=== PATIENT | female | born 1950 | race Caucasian/White ===

== ENCOUNTER 2017-06-30 10:27 | Outpatient (RCR) | payer MEDICARE, OTHER, SELFPAY ==
[2017-06-30 11:38] LABS: International Normalized Ratio 2.9; Prothrombin Time (Protime)PT. 29.2 SECONDS (11.7-14.9)
== END 2017-06-30 10:30 | disposition home or self-care (01) ==
LOC: LAB 10:27
PROVIDERS: Family Provider Family Medicine; PCP Family Medicine; Visit Provider Family Medicine
DX: D68.2 Hereditary deficiency of other clotting factors (principal); E78.5 Hyperlipidemia, unspecified; Z79.899 Other long term (current) drug therapy
CPT/HCPCS: 36415; 85610

== ENCOUNTER → 2017-07-18 11:44 | Outpatient (CLI) | payer MEDICARE, OTHER, SELFPAY ==
--- NOTE | 2017-07-18 11:48 | HPBI_ITS ---
MAMMOGRAPHY - BILATERAL SCREENING REASON FOR EXAM: Female, 67 years old. Routine annual screening examination. PERTINENT HISTORY: Aunt with breast cancer. History of prior workup for right breast nodule. TECHNIQUE: Digital bilateral breast monica (3D mammographic acquisition) in the CC and MLO projections. 2-D mediolateral oblique (MLO) and craniocaudad (CC) views of both breasts were obtained. CAD: Full Field Digital Mammography with Computer Added Detection was performed. COMPARISON: Comparison is made with prior study dated July 04, 2016 and July 03, 2015. FINDINGS: Breast Composition: There are scattered areas of fibroglandular density. There are no dominant masses or suspicious calcifications. No other significant abnormalities are identified. There has been no significant change since the prior study. HPBI/SCREENING MAMM (CAD), BILAT IMPRESSION: Stable bilateral screening mammogram. Yearly follow-up mammogram recommended. (A) ASSESSMENT CATEGORY: BIRADS Category 1: Negative. A letter regarding these results will be sent to the patient by the facility within 30 days. Approximately 10% of breast cancers are not detected by mammography. A normal mammogram should not delay biopsy of a clinically suspicious abnormality. [id number] Electronically Signed: Efrain Klein, at 13:19 EST , Service support ,
== END ==
PROVIDERS: Family Provider Family Medicine; PCP Family Medicine; Visit Provider Family Medicine
DX: Z12.31 Encounter for screening mammogram for malignant neoplasm of breast (principal)
CPT/HCPCS: 77063; 77067

== ENCOUNTER 2017-08-13 12:36 | Outpatient (RCR) | payer MEDICARE, OTHER, SELFPAY ==
[2017-06-21 08:18] VITALS: BP 124/82; BMI 27.9
[2017-08-13 13:44] LABS: Prothrombin Time (Protime)PT. 31.3 SECONDS (11.7-14.9)
== END 2017-08-13 13:00 | disposition home or self-care (01) ==
LOC: LAB 12:36
PROVIDERS: Family Provider Family Medicine; PCP Family Medicine; Visit Provider Family Medicine
DX: D68.2 Hereditary deficiency of other clotting factors (principal)
CPT/HCPCS: 36415; 85610

== ENCOUNTER 2017-09-22 08:07 | Outpatient (RCR) | payer MEDICARE, OTHER, SELFPAY ==
[2017-09-01 12:23] LABS: Prothrombin Time (Protime)PT. 31.4 SECONDS (11.7-14.9)
[2017-09-22 09:28] LABS: International Normalized Ratio 2.6
== END 2017-09-22 09:00 | disposition home or self-care (01) ==
LOC: LAB 08:07
PROVIDERS: Family Provider Family Medicine; PCP Family Medicine; Visit Provider Family Medicine
DX: D68.2 Hereditary deficiency of other clotting factors (principal)
CPT/HCPCS: 36415; 85610

== ENCOUNTER 2017-11-12 06:18 | Outpatient (RCR) | payer MEDICARE, OTHER, SELFPAY ==
[2017-11-12 08:03] LABS: Absolute Lymphocyte Count 1.11 X10^3/ul (0.83-4.51); Absolute Neutrophil Count 1.7 X10^3/uL (2.0-7.7); Basophil# 0.03 X10^3/uL; Basophil% 0.9 % (0-1); Eosinophil# 0.09 X10^3/uL; Eosinophils% 2.7 % (0-5); Hematocrit 41.6 % (37-47); Hemoglobin 13.8 g/dl (12.0-15.0); Lymphocyte # 1.11 X10^3/ul (4.0); Lymphocyte % 33.2 % (19-41); Mean Corp Hgb Conc 33.2 g/gl (32-36); Mean Corpuscular Hgb 31.9 pg (27.0-32.0); Mean Corpuscular Volume 96.1 fL (81-99); Mean Platelet Vol. 10.1 fl (6.2-12.0); Monocyte# 0.43 X10^3/uL; Monocyte% 12.9 % (0-10); Neutrophil # 1.67 X10^3/uL (2.7-7.7); Platelet Count 221 K/mm3 (150-450); RBC Distribution Width CV 12.9 % (11.6-14.6); RBC Distribution Width SD 44.4 fl (35.1-43.9); Red Blood Count 4.33 M/mm3 (4.2-5.4); White Blood Count 3.3 K/mm3 (4.4-11.0)
[2017-11-12 08:15] LABS: POSITIVE COUNT NO; POSITIVE DIFFERENTIAL NO; POSITIVE MORPHOLOGY NO
[2017-11-12 08:44] LABS: ALB/GLOB Ratio 1.1 RATIO (0.9-2.4); AST(SGOT) 22 U/L (15-37); Alanine Aminotransfer ALT/SGPT 27 U/L (13-56); Albumin, Serum 3.5 g/dL (3.2-5.0); Alkaline Phosphatase 99 U/L (45-117); Anion Gap 6 (5-15); BUN 13 mg/dL (7-18); BUN/Creat Ratio 16.1 RATIO (10-20); Bilirubin, Direct 0.16 mg/dL (0.00-0.30); Calcium,Total 8.1 mg/dL (8.5-10.1); Chloride 108 mmol/L (98-107); Cholesterol 136 mg/dL (200); Creatinine, Serum 0.81 mg/dL (0.55-1.02); EST Glomerular Filtration Rate 75 mL/min (>60); Est Glom Filt Rate - Afr Amer 91 mL/min (>60); Globulin 3.1 g/dL (2.2-4.2); Glucose 79 mg/dL (74-106); High Density Lipoprotein 63 mg/dL; Potassium 3.8 mmol/L (3.5-5.1); Protein, Total 6.6 g/dL (6.4-8.2); Sodium Level 142 mmol/L (136-145); Thyroid Stim Hormone (TSH) 0.61 uIU/mL (0.358-3.74); Triglycerides 107 mg/dL; Very Low Density Lipoprotein 21 mg/dL (5-40)
[2017-11-12 08:45] LABS: International Normalized Ratio 2.8; Prothrombin Time (Protime)PT. 29.8 SECONDS (11.7-14.9)
== END 2017-11-12 07:00 | disposition home or self-care (01) ==
LOC: LAB 06:18
PROVIDERS: Nurse Practitioner Family; Family Provider Family Medicine; PCP Family Medicine; Visit Provider Family Medicine
DX: D68.2 Hereditary deficiency of other clotting factors (principal); E03.9 Hypothyroidism, unspecified; I10 Essential (primary) hypertension; E78.5 Hyperlipidemia, unspecified
CPT/HCPCS: 36415; 80053; 80061; 82248; 84443; 85025; 85610

== ENCOUNTER → 2017-11-21 13:53 | Outpatient (CLI) | payer MEDICARE, OTHER, SELFPAY ==
--- NOTE | 2017-11-21 14:00 | RAD_ITS ---
STUDY: X-RAY - PELVIS AND RIGHT HIP REASON FOR EXAM: Female, 67 years old. Pain TECHNIQUE: Radiological exam, hip, unilateral, with pelvis when performed; 2 or 3 views. COMPARISON: None. FINDINGS: There is a non-specific bowel gas pattern. Normal visualized soft tissue structures. Normal bilateral iliac wings, sacroiliac joints and visualized sacrum. Normal bilateral superior and inferior pubic rami. Normal pubic symphysis. Normal bilateral ischial tuberosities. Normal visualized femoral head. Normal acetabulum. Normal hip joint. RAD/Hip 2-3 Views with Pelvis IMPRESSION: Normal x-ray examination of the pelvis and hip. No fracture. No osteoarthritis Electronically Signed: Watson Sheridan, at 6:34 EDT Tel , Service support ,
== END ==
PROVIDERS: Family Provider Family Medicine; PCP Family Medicine; Visit Provider Family Medicine
DX: R52 Pain, unspecified (principal)
CPT/HCPCS: 73502

== ENCOUNTER 2017-12-22 15:19 | Outpatient (RCR) | payer MEDICARE, OTHER, SELFPAY ==
[2017-12-22 15:52] LABS: International Normalized Ratio 2.5
== END 2017-12-22 16:00 | disposition home or self-care (01) ==
LOC: LAB 15:19
PROVIDERS: Family Provider Family Medicine; PCP Family Medicine; Visit Provider Family Medicine
DX: D68.2 Hereditary deficiency of other clotting factors (principal)
CPT/HCPCS: 36415; 85610

== ENCOUNTER → 2018-02-04 14:14 | Outpatient (CLI) | payer MEDICARE, OTHER, SELFPAY ==
[2018-02-04 15:58] LABS: Absolute Lymphocyte Count 1.81 X10^3/ul (0.83-4.51); Absolute Neutrophil Count 1.9 X10^3/uL (2.0-7.7); Basophil# 0.03 X10^3/uL; Basophil% 0.7 % (0-1); Eosinophil# 0.07 X10^3/uL; Eosinophils% 1.6 % (0-5); Hematocrit 41.2 % (37-47); Hemoglobin 13.6 g/dl (12.0-15.0); Lymphocyte # 1.81 X10^3/ul (4.0); Lymphocyte % 42.2 % (19-41); Mean Corpuscular Hgb 31.8 pg (27.0-32.0); Mean Corpuscular Volume 96.3 fL (81-99); Mean Platelet Vol. 10.5 fl (6.2-12.0); Monocyte# 0.52 X10^3/uL; Monocyte% 12.1 % (0-10); Neutrophil # 1.85 X10^3/uL (2.7-7.7); Neutrophil % 43.2 % (47-70); Platelet Count 213 K/mm3 (150-450); RBC Distribution Width CV 12.8 % (11.6-14.6); RBC Distribution Width SD 43.9 fl (35.1-43.9); Red Blood Count 4.28 M/mm3 (4.2-5.4); White Blood Count 4.3 K/mm3 (4.4-11.0)
[2018-02-04 16:10] LABS: POSITIVE COUNT NO; POSITIVE DIFFERENTIAL NO; POSITIVE MORPHOLOGY NO
[2018-02-04 16:20] LABS: ALB/GLOB Ratio 1.2 RATIO (0.9-2.4); AST(SGOT) 23 U/L (15-37); Alanine Aminotransfer ALT/SGPT 28 U/L (13-56); Albumin, Serum 3.6 g/dL (3.2-5.0); Alkaline Phosphatase 96 U/L (45-117); Anion Gap 10 (5-15); BUN 11 mg/dL (7-18); BUN/Creat Ratio 12.6 RATIO (10-20); Calcium,Total 8.4 mg/dL (8.5-10.1); Chloride 107 mmol/L (98-107); Creatinine, Serum 0.87 mg/dL (0.55-1.02); EST Glomerular Filtration Rate 69 mL/min (>60); Est Glom Filt Rate - Afr Amer 83 mL/min (>60); Globulin 2.9 g/dL (2.2-4.2); Glucose 81 mg/dL (74-106); Potassium 3.9 mmol/L (3.5-5.1); Protein, Total 6.5 g/dL (6.4-8.2); Sodium Level 142 mmol/L (136-145); T4 Free Direct 1.19 ng/dL (0.76-1.46); Thyroid Stim Hormone (TSH) 0.37 uIU/mL (0.358-3.74)
== END ==
PROVIDERS: Family Provider Family Medicine; PCP Family Medicine; Visit Provider Family Medicine
DX: E03.9 Hypothyroidism, unspecified (principal); R53.83 Other fatigue; Z51.81 Encounter for therapeutic drug level monitoring
CPT/HCPCS: 36415; 80053; 84439; 84443; 84480; 85025

== ENCOUNTER → 2018-05-14 15:38 | Outpatient (CLI) | payer MEDICARE, OTHER, SELFPAY ==
[2018-03-13 13:51] VITALS: BMI 27.6
--- NOTE | 2018-05-14 15:50 | RAD_ITS ---
STUDY: X-RAY - UNILATERAL RIBS ( RIGHT ) REASON FOR EXAM: Female, 68 years old. Right rib pain. No known injury. TECHNIQUE: 2 view(s) of the ribs on 4 images. COMPARISON: None. FINDINGS: Normal visualized ribs without a demonstrated fracture or obstructive lesion. The visualized lung is clear and expanded. RAD/Ribs Unil 2V No CXR IMPRESSION: Normal x-ray examination of the right ribs. Electronically Signed: Asif Villagomez MD at 19:13 EST , Service support ,
--- OUTSIDE RECORDS SUMMARY | 2018-06-30 13:28 | XMS RPT_ITS ---
:1950 Author Organization [place] Support Name Relationship Address Phone RYANNE CHAMBERS Unavailable [address] + [place] [address] R Unavailable Unavailable Unavailable August Unavailable [address] + [place] [facility] [address] RYANNE CHAMBERS Unavailable [address] + [place] [address] R Unavailable Unavailable Unavailable August Unavailable [address] + [place] [address] RYANNE CHAMBERS Unavailable [address] + [place] [address] R Unavailable Unavailable Unavailable August Unavailable [address] + [place] [address] RYANNE CHAMBERS Unavailable [address] + [place] [address] R Unavailable Unavailable Unavailable August Unavailable [address] + [place] [address] RYANNE CHAMBERS Unavailable [address] + [place] [address] R Unavailable Unavailable Unavailable August Unavailable . + [place] [address] RYANNE CHAMBERS Unavailable [address] + [place] [address] R Unavailable Unavailable Unavailable August Unavailable . + [place] [address] RYANNE CHAMBERS Unavailable [address] + [place] [address] R Unavailable Unavailable Unavailable August Unavailable Unavailable + [place] [address] RYANNE CHAMBERS Unavailable [address] + [place] [address] R Unavailable Unavailable Unavailable SPRANG, AUGUST Unavailable Unavailable + [place] [address] RYANNE CHAMBERS Unavailable [address] + [place] [address] R Unavailable Unavailable Unavailable SPRANG, AUGUST Unavailable Unavailable + [place] [address] RYANNE CHAMBERS Unavailable [address] + [place] [address] R Unavailable Unavailable Unavailable SPRANG, AUGUST Unavailable . + [place] [address] RYANNE CHAMBERS Unavailable [address] + [place] [address] R Unavailable Unavailable Unavailable SPRANG, AUGUST Unavailable Unavailable + RYANNE CHAMBERS Unavailable [address] + [place] [address] R Unavailable Unavailable Unavailable SPRANG, AUGUST Unavailable Unavailable + RYANNE CHAMBERS Unavailable [address] [phone] [place] [address] R Unavailable Unavailable Unavailable SPRANG, AUGUST Unavailable Unavailable + RYANNE CHAMBERS Unavailable [address] [phone] [place] [address] R Unavailable Unavailable Unavailable SPRANG, IRIS Unavailable Unavailable + RYANNE CHAMBERS Unavailable [address] [phone] [place] [address] R Unavailable Unavailable Unavailable SPRANG, IRIS Unavailable Unavailable + RYANNE CHAMBERS Unavailable [address] [phone] [place] [address] R Unavailable Unavailable Unavailable SPRANG, IRIS Unavailable Unavailable + RYANNE CHAMBERS Unavailable [address] [phone] [place] [address] R Unavailable Unavailable Unavailable SPRANG, IRIS Unavailable Unavailable + RYANNE CHAMBERS Unavailable NA + [place], [place] R Unavailable Unavailable Unavailable August Unavailable NA + [place], [place] Care Team Providers Name Role Phone Malys, Adelina Attending Unavailable Malys, Adelian Referring Unavailable Malys, Adelina Primary Care Unavailable Cornelius Dyer Attending Unavailable Manisha, Cornelius Referring Unavailable Malys, Adelina Primary Care Unavailable Malys, Adelina Attending Unavailable Jacinto Laureano Referring Unavailable Malys, Adelina Primary Care Unavailable Malys, Adelina Attending Unavailable Jacinto Laureano Referring Unavailable Malys, Adelina Primary Care Unavailable MiedElzbieta garcia Attending Unavailable Malys, Adelina Primary Care Unavailable Roof, Washington H Attending Unavailable Roof, Washington H Referring Unavailable Malys, Adelina Primary Care Unavailable Malys, Adelina Attending Unavailable Malys, Adelina Primary Care Unavailable Malys, Adelina Attending Unavailable Malys, Adelina Primary Care Unavailable Malys, Adelina Referring Unavailable Malys, Adelina Attending Unavailable Malys, Adelina Referring Unavailable Malys, Adelina Primary Care Unavailable Miedel, Elzbieta Attending Unavailable Malys, Adelina Primary Care Unavailable Miedel, Elzbieta Attending Unavailable Miedel, Elzbieta Referring Unavailable Malys, Adelina Primary Care Unavailable Malys, Adelina Attending Unavailable Malys, Adelina Referring Unavailable Malys, Adelina Primary Care Unavailable Nolt, Colleen Attending Unavailable Jacinto Laureano Attending Unavailable Malys, Adelina Referring Unavailable Malys, Adelina Attending Unavailable Malys, Adelina Referring Unavailable Malys, Adelina Primary Care Unavailable Malys, Adelina Attending Unavailable Malys, Adelina Primary Care Unavailable Jacinto Laureano Attending Unavailable Malys, Adelina Referring Unavailable Roof, Washington H Attending Unavailable Malys, Adelina Referring Unavailable PROBLEMS PROBLEMS DATE TYPE CONDITION / CODE ATTENDING STATUS SOURCE 05/27/2018 Unknown Z01.818 - Encounter Elzbieta Benedict Active [facility] for other Community preprocedural Hospital examination / Repository Z01.818(ICD-10) 05/14/2018 Unknown 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, 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 / Community R07.81(ICD-10) Hospital Repository 02/26/2018 Unknown E78.5 - Jacinto Laureano Active [facility] Hyperlipidemia, Community unspecified / Hospital E78.5(ICD-10) Repository 02/26/2018 Unknown I10 - Essential Jacinto Laureano Active [facility] (primary) [facility] hypertension / Hospital I10(ICD-10) Repository 02/26/2018 Unknown 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 / Hospital Q23.1(ICD-10) Repository 01/01/2018 Unknown 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 / Hospital D68.2(ICD-10) Repository 11/21/2017 Unknown M25.551 - Pain in MiedElzbieta garcia Active [facility] right hip / [facility] M25.551(ICD-10) Hospital Repository 11/28/2017 Unknown E03.9 - Malys, Adelina Active [facility] Hypothyroidism, [facility] unspecified / Hospital E03.9(ICD-10) Repository 07/03/2017 Unknown I48.0 - Paroxysmal Malys, Adelina Active [facility] atrial fibrillation [facility] / I48.0(ICD-10) Hospital Repository PROCEDURES PROCEDURES No Procedure Records FoundRESULTS RESULTS OPERATIVE REPORT Observed: 06/03/2018 Status: F Source: [place] 3:08 PM [facility] [place] Medical Records Department [address] [place] [address] Operative Report 06/03/18 0715 MR#: [id number] Acct: [id number] Name: SHANE CHAMBERS Rep #: [id number] : 1950 68 From: Cornelius Dyer MD PCP: Adelina Alvarenga DO Status: [facility] Y Location: [facility] Report of Operation Date of Procedure: 06/03/18 Pre-Operative Diagnosis: Right first CMC Osteoarthritis Post-Operative Diagnosis: Right first CMC osteoarthritis Surgery/Procedure Performed:: Right first CMC arthroplasty. Right FCR tendon transfer Description of Surgical Findings:: Stable tendon transfer table assembler: Chapis Martino Type of Anesthesia:: General Anesthesiologist: Jus Heck Special Medications: 2 g of Ancef Specimen's removed: Trapezium Estimated Blood Loss (mL): 5 Fluids Replaced: 1000 mL crystalloid Description of Procedure: Operative indications: 68-year-old f failed conservative measures for first CMC osteoarthritis. X-rays show joint space narrowing, subluxation of the joint and osteophyte formation as well as subchondral sclerosis. We discussed surgical intervention including first CMC arthroplasty with tendon transfer. Risks and benefits discussed included but were not limited to blood loss, DVTs, PEs, neurovascular damage, infection, general risk of anesthesia, hematoma and weakness. Patient demonstrated understanding was able to sign informed consent. Procedure: On the date of the procedure the patient's R hand was marked in the preoperative area. Patient was taken back to the operating room where they were transferred to the table in the supine position. Anesthesia assumed control the C-spine airway and remained in control throughout the remainder of the procedure. All bony prominences were identified and well-padded tourniquet was placed on the R upper extremity. The operative extremity was prepped in a sterile fashion. Surgeon then scrubbed Upon reentering the room, the right upper extremity was draped in a standard orthopedic fashion. Incision was marked out. Timeout was called everyone agreed upon the side, the site, the procedure to be performed, patient identity and antibiotics given. Esmarch bandage was used to exsanguinate the extremity. Tourniquet was placed up to 250 mmHg. Incision was taken down through skin. Blunt dissection was taken through subcutaneous tissues. Superficial nerve was identified and retracted out of the way. Radial artery was identified and retracted out of the way. Once we are able to identify the joint arthrotomy was made and the trapezium was identified. Once the trapezium was identified dorsal and volar aspects were debrided of connective tissue. Saw was then used to make a cruciform cut in an osteotomy was completed with the osteotome. Once this was done a rondure was used to remove the bone fragments and the trapezium in its entirety. Attention was then directed towards the FCR to harvest. FCR was identified in the wrist and FiberWire suture was placed around it passed up into the forearm. We then made a small incision in the form and brought the FiberWire through. Transection of the FCR was done in the forearm. The FCR tendon was then fed down to the wrist and into the joint in the previous incision. Vicryl suture was then used to tag the end of the graft for transfer. Attention was then directed towards the proximal end of the first metacarpal. A bur was used to make a bone tunnel for tendon transfer. Loop suture was then passed through the upper holes and used to pull the graft through the bone tunnel. Once this was done a sling was made and 3-0 Ethibond suture was used to tie the tendon on itself. Once the tendon was appropriately secured anchovy was made with the remainder of the tendon. This was sewn down into the joint using 3-0 Ethibond. Copious amounts of irrigation were used throughout the procedure and prior to closure of the wound. Arthrotomy was closed with 2-0 Vicryl skin was closed with 2-0 Vicryl and 4-0 Monocryl with Steri-Strips. Xeroform dressing was placed. Sterile dressing was placed. Compressive dressing was placed. Tourniquet was let down. Well-padded splint was then placed with the thumb in abduction. Patient was then awakened by anesthesia and transferred to the PACU for recovery. Postoperative plan: Patient will remain in the splint for 2 weeks. 2 weeks we will check the incision and remove any sutures or tails. He will be transferred to a cast and abduction at that time. They will then follow standard postoperative protocol for first CMC arthroplasty with Occupational Therapy. - Complications None - Admit VTE Documentation VTE Present on Admission: No VTE Mechan Device Prophylaxis: SCD's VTE Pharm Prophylaxis ordered?: No Reason prophylaxis not ordered:: Treatment Not Indicated 06/03/18 1508 <Electronically signed by Cornelius Dyer MD> Date Cornelius Dyer MD CC: Adelina Alvarenga DO; Cornelius Dyer MD Signed PROTIME W/INR Collected: 06/03/2018 Status: F Source: [place] 8:13 AM [facility] [place] [facility] TYPE CODE TESTS RESULT OUT OF REFERENCE UNITS RANGE LAB L9200.1001 11.9-14.4 SEC Low PROTIME ISTAT 11.8 Result Comment: Reference Range 11.9 - 14.4 LAB L9200.2000 Normal INR ISTAT 1.00 Result Comment: Critical Value > 3.5 Performed By: #### L9200.0000 #### [facility] Point of Care [address] [place] [address] LIVER PROFILE Collected: 06/01/2018 Status: F Source: [place] 6:09 AM [facility] [place] [facility] TYPE CODE TESTS RESULT OUT OF RANGE REFERENCE UNITS LAB L501.1500 6.4-8.2 g/dL Low T PROT 6.1 LAB L501.1800 3.2-5.0 g/dL Normal ALB 3.4 LAB L501.1950 2.2-4.2 g/dL Normal GLOB 2.7 LAB L501.4100 15-37 U/L Normal AST 19 LAB L501.4305 45-117 U/L Normal ALK P 96 LAB L501.4405 13-56 U/L Normal ALT 25 LAB L501.4600 0.20-1.00 mg/dL Normal T BILI 0.60 LAB L501.4700 0.00-0.30 mg/dL Normal D BILI 0.18 Performed By: #### L500.3400, L500.4100 #### [facility] [address] [place], [place], [address] LIPID PROFILE Collected: 06/01/2018 Status: F Source: [place] 6:09 AM [facility] [place] TYPE CODE TESTS RESULT OUT OF RANGE REFERENCE UNITS LAB L501.4900 200 mg/dL Normal CHOL 135 Result Comment: <200 mg/dL Desirable 200-240 mg/dL Borderline >240 mg/dL High Risk LAB L501.5000 mg/dL Normal TRIG 114 Result Comment: The drugs N-Acetylcysteine and Metamizole may falsely depress this assay. Serum Triglycerides Reference Interval Normal <150 mg/dL Borderline high 150 - 199 mg/dL High 200 - 499 mg/dL Very High > or = 500 mg/dL LAB L501.6400 mg/dL Normal HDL 59 Result Comment: The drugs N-Acetylcysteine and Metamizole may falsely depress this assay. Reference Range HDL <40 mg/dL Low HDL Cholesterol HDL >or= 60 mg/dL High HDL Cholesterol LAB L501.6500 0-130 mg/dL Normal LDL 53 LAB L501.6600 5-40 mg/dL Normal VLDL 23 Performed By: #### L500.3400, L500.4100 #### [facility] [address] [place], [place], [id number] HISTORY AND PHYSICAL Observed: 05/23/2018 Status: F Source: [place] EXAM 12:00 AM [facility] [place] [facility] Medical Records Department [address] [place] [address] History and Physical 05/23/18 0000 MR#: [id number] Acct: [id number] Name: SHANE CHAMBERS Rep #: [id number] : 1950 68 From: David Brown PA-C PCP: Adelina Alvarenga DO Status: PRE [facility] Y Location: [facility] History and Physical DATE OF SURGERY: 06/03/2018 SCHEDULED PROCEDURE: right thumb carpometacarpal arthroplasty HISTORY OF PRESENT ILLNESS: This is a 68-year-old female who has had bilateral hand pain for over 1 year duration. Patient states her right is worse than the left. Patient is right- hand dominant. Pain can reach as high as a 10/10 with activity. On average her pain as a 4/10. Patient states her pain does wake her at night. The pain is at the base of her right thumb and radiates into the forearm. She does complain of some occasional numbness in the left hand that improved with bracing. Patient has tried previous conservative measures consisting of heat, ice, elevation with no relief on the right. Patient denies any trauma or injury. Patient has a medical history pertinent for factor V Leiden, hypertension, clots in the right lower extremity. Patient has been on chronic anticoagulation currently on warfarin. Patient currently denies any chest pain, shortness of breath, fevers chills, recent infections. Patient has obtain surgical clearance from her primary care physician. She also has history of heart catheterization in 2007. She is followed by Dr. Laureano her track inspector. After failing conservative measures and discussing treatment options with Dr. Cornelius Dyer, the patient would like to proceed with a right carpometacarpal thumb arthroplasty. REVIEW OF SYSTEMS: ROS: Const: Reports fatigue, but denies anorexia, anxiety, change in appetite, fever and weight change,hard of hearing, and vision problems. CV: Reports heart murmur, but denies chest pain, irregular heartbeat and peripheral vascular disease. Resp: Denies asthma, cough, pneumonia, sleep apnea, SOB, tuberculosis and wheezing. GI: Reports heartburn, but denies constipation, diarrhea, nausea, bloody stools and vomiting, and difficulty swallowing. : Urinary: denies incontinence. Musculo: Denies leg swelling, trouble walking and weakness and limp. Skin: Denies Raynaud's, history of shingles and tattoo. Neuro: Denies ambulatory dysfunction, dizziness, numbness/tingling and tremor. Psych: Reports sleep pattern disturbance, but denies anxiety, depression, insomnia, mental illness and stress. Jamaal/Lymph: Reports bleeding/bruising tendency, but denies anemia and past transfusion. Reviewed and updated. PAST MEDICAL HISTORY: Advance Care Plan: No Advance Directives Effective Date: 07/05/2016 PMH: Medical Problems: Arthritis, Stroke, Thyroid Disease, Factor 5 Liden Accidents: Tailbone FX Surgical Hx: Hand Surgery - 2002 Colonoscopy - 2004 Endoscopy - 2004 Heart Cath - 2007 Thriod Removed - 2009 Gallbladder Colonoscopy - (2017) Anesthesia Complications: None Assistive Devices: Glasses Reviewed and updated. 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 Personal Habits: Cigarette Use: Never.Alcohol: Denies use.Drug Use: Denies Use.Enjoy Exercising: Exercises 1-3 X/Week. Reviewed, no changes. VITALS: Ht: 58 Wt: 138lb Wt k.597 BMI: 28.8 BP: 114/71 Pulse: 56 Resp: 20 T: 97.7 T: 36.5C ALLERGIES: Naprosyn - upset stomach Contrast Dye Levofloxacin MEDICATIONS: Multivitamins 1 po qday, Omeprazole 20 mg 1 cap PO bid, Atenolol 25 mg 1 tab PO qam and 1/2 tab qhs, Simvastatin 40 mg 1 PO qhs, Levothyroxine Sodium 75mcg 1 tab PO except 1/2 tab on sundays, Tizanidine HCL 4 mg 1 PO qhs, Vitamin D-3 2000 Unit 1 PO weekly, [place] 5-325 mg 1-2 by mouth every 6 hour as needed pain, Warfarin Sodium 3 mg 1 tab PO 4 times A week, Warfarin Sodium 2 mg 1 tab PO 3 times A week PRE-OP EXAM: General appearance:NORMAL Other: Eyes: Conjunctivae and lids: NORMAL Pupils: ERR Ears, Nose, Mouth, and Throat: NORMAL Other: Inspection of lips, teeth and gums: NORMAL Other: Neck: Examination of neck: no masses noted. Respiratory: Assessment of respiratory effort: NORMAL Other: Auscultation of lungs: clear to auscultation no wheezes, rhonchi or rales. Cardiovascular: Auscultation of heart: regular rate and rhythm, positive murmur, no gallops or rubs. Exam of carotid arteries: NORMAL Other: Gastrointestinal: Exam of abdomen: soft, nontender, nondistended bowel sounds present. PHYSICAL EXAMINATION: On exam right hand/wrist is cool to touch without erythema. There is tenderness to palpation at the base of the right thumb at the carpometacarpal joint bilaterally. Swelling appreciated at the first carpal metacarpal joint bilaterally. Patient does have a positive grind test bilaterally. Sensation intact to light touch. Motor intact to AIN, PIN, and ulnar nerve. IMAGING STUDIES: First carpometacarpal osteoarthritis with STT osteoarthritis of the wrist. This is consistent with joint space narrowing, subchondral sclerosis, subchondral cyst formation and subluxation of the joint. IMPRESSION: 1. Severe right thumb carpometacarpal osteoarthritis 2. Severe left thumb carpometacarpal joint osteoarthritis 3. History of heart catheterization 2007 4. Hypertension 5. Factor V Leiden 6. Hyperlipidemia 7. Hypothyroidism 8. History of previous deep vein thrombosis right leg 9. Chronic anticoagulation: Currently on warfarin. PLAN: Dr. Cornelius Dyer did discuss and review with the patient all treatment options including surgical versus nonsurgical options. Patient does wish to proceed with the above-stated procedure. Potential risks, benefits, and complications of the procedure were discussed in detail including but not limited to , infection, nerve and blood vessel damage, persistent pain, numbness, tingling, paresthesias, blood clot, pulmonary embolism, and requirement for possible further surgery. The patient expressed full understanding and has no further questions for the doctor. Patient does agree to proceed with the above-stated procedure and has signed the surgery consent form. We will obtain surgical clearance from patient's primary care physician. We're also getting clearance from patient's track inspector. Patient will stop the Coumadin 5 days prior to surgery and restart after surgery. This is per her primary care physician. This dictation was created using voice recognition software. Phonetic and/or grammatical errors may exist.. ___ I have re-examined the patient. There are no clinical changes since date of exam. ___ See progress notes for changes. ___ Dictated on admission Date: Time: Signature: 05/23/18 0000 <Electronically signed by David Brown PA-C> Date David Brown PA-C Cosigner Signature: Date (if applicable) CC: Adelina Alvarenga DO; David WITT Signed CBC W/DIFF, AUTOMATED Collected: 05/19/2018 Status: F Source: [place] 3:21 PM [facility] [place] TYPE CODE TESTS RESULT OUT OF RANGE REFERENCE UNITS LAB L100.1000 4.4-11.0 K/mm3 Normal WBC 5.9 LAB L100.1200 4.2-5.4 M/mm3 Normal RBC 4.33 LAB L100.1300 12.0-15.0 g/dl Normal HGB 13.8 LAB L100.1400 37-47 % Normal HCT 41.9 LAB L100.1500 81-99 fL Normal MCV 96.8 LAB L100.1600 27.0-32.0 pg Normal MCH 31.9 LAB L100.1700 32-36 g/gl Normal MCHC 32.9 LAB L100.1810 11.6-14.6 % Normal RDW CV 13.4 LAB L100.1820 35.1-43.9 fl High RDW SD 45.8 LAB L100.1900 150-450 K/mm3 Normal PLT 212 LAB L100.2000 6.2-12.0 fl Normal MPV 10.6 LAB L100.2100 47-70 % Normal NEUT% 67.2 LAB L100.2200 19-41 % Normal LY% 22.4 LAB L100.2300 0-10 % Normal MONO% 7.5 LAB L100.2400 0-5 % Normal EO% 1.7 LAB L100.2500 0-1 % Normal BASO% 1.0 LAB L100.2550 0.0-0.9 % Normal IM GRAN % 0.200 Result Comment: IG% - Immature Granulocytes (promyelocytes, myelocytes and metamyelocytes) > 1% indicates that a LEFT SHIFT is Present. LAB L100.2620 2.0-7.7 X10 3/uL Normal Absolute Neut 3.9 LAB L100.2720 0.83-4.51 X10 3/ul Normal Absolute Lymph 1.31 Performed By: #### L100.0100 #### [facility] [address] [facility] [place], [address] RIBS UNIL 2V NO Observed: 05/14/2018 Status: F Source: [place] CXR 3:46 PM [facility] [place] [facility] Imaging Services [address] [place] [address] Ribs Unil 2V No CXR MR#: [id number] Acct: [id number] Name: SHANE CHAMBERS Rep #: [id number] : 1950 F 68 From: Erick Villagomez MD PCP: Adelina Alvarenga DO Status: REG CLI Study: Ribs Unil 2V No CXR Date of Exam: 05/14/18 Exam# [id number] Ordering Dr: Adelina Alvarenga DO STUDY: X-RAY - UNILATERAL RIBS ( RIGHT ) REASON FOR EXAM: Female, 68 years old. Right rib pain. No known injury. TECHNIQUE: 2 view(s) of the ribs on 4 images. COMPARISON: None. FINDINGS: Normal visualized ribs without a demonstrated fracture or obstructive lesion. The visualized lung is clear and expanded. RAD/Ribs Unil 2V No CXR IMPRESSION: Normal x-ray examination of the right ribs. Electronically Signed: Asif Villagomez MD at 19:13 EST , Service support , CC: Adelina Alvarenga DO Pocket Stitcher: Signed CARDIOLOGY VISIT Observed: 02/26/2018 Status: F Source: [place] REPORT 3:32 PM [facility] [place] [facility] [place] [address] OFFICE VISIT Date of Service: 02/26/18 MR#: [id number] Acct: [id number] Name: SHANE CHAMBERS Rep #: [id number] : 1950 Provider: Jacinto Laureano MD Age/Sex: 67/F [place] [facility] [place]: Signed HPI HPI Chief Complaint: Routine f/u Details: SHANE CHAMBERS, is a 67 F who presents to the office today for a cardiovascular outpatient follow-up. Patient has a history of factor V Leiden deficiency discovered after requiring a DVT in 2007 and in again in 2009, hypertension, bicuspid aortic valve, and hyperlipidemia. At last office visit patient expressed some fatigue and underwent a stress test and echocardiogram. Patient's last heart catheterization was in 2007. Pt. denies chest, arm, jaw, or neck discomfort. Her exercise tolerance is stable. Pt. denies symptoms of CHF, palpitations, lightheadedness, dizziness, near syncope, or syncopal episodes. Pt. denies edema or claudication issues. Pt. denies orthopnea, PND, fever, chills, blood in urine, blood in stool, myalgia, or unexplainable fatigue. She states some SOB with extreme exertion. Cardiovascular stress echocardiogram from November 2016 showed an estimated ejection fraction of 65% and was negative for ischemia by both ECG and echo criteria. Echocardiogram from November 2016 showed an estimated ejection fraction of 65%, RVSP of 36 mmHg, bicuspid aortic valve, no aortic stenosis, trivial aortic valve insufficiency, and when compared to previous echocardiogram in October 2015 LV function and bicuspid aortic gradients have remained the same and RVSP has increased from 23-36 mmHg. Apparently the patient's PCP feels her blood pressure was on the low side, and decreased her atenolol. At that time she developed palpitations, and her atenolol was increased back to 25 mg a day. Her palpitations have markedly improved although have not completely resolved. She complains of palpitations mostly when laying down at the end of the day, but is otherwise well tolerated. She continues on her Coumadin therapy. She denies any chest pain, angina, shortness of breath or dyspnea on exertion. Patient states that she is been under an enormous amount of psychosocial stress over the last several months as her mother fell and broke her hip requiring admission into a rehab center. She is now currently back home. She had tried atenolol 50 mg daily in the past, but her heart rate was too slow. She has tried atenolol 25 twice daily but reduce this to once a day as she had bradycardia and fatigue. In our office today her blood pressure is 120/60 with a pulse of 60 and regular. Physical exam is as below. Lipids as of 11/12/17 show an LDL of 52 and an HDL of 63. Intake Vital Signs02/26/18 Height 4 ft 11.5 in 02/26/18 Weight: 135 lb 02/26/18 Body Mass Index (BMI) 26.8 02/26/18 Blood Pressure 120/60 Intake Visit Reasons: PCP REQ, palps (no notes, pt canc appt with pcp) Allergies Iodinated Contrast- Oral and IV Dye [Iodinated Contrast Media - IV Dye] Allergy (Verified 02/26/18 10:33) Hives levofloxacin Adverse Reaction (Verified 02/26/18 10:33) abdominal pain naproxen [From Naprosyn] Adverse Reaction (Verified 02/26/18 10:33) Nausea Medications Levothyroxine [Synthroid] 75 mcg PO DAILY 10/28/13 [History Confirmed 02/23/18] Tizanidine HCl [Zanaflex] 4 mg PO QHS 10/28/13 [History Confirmed 02/23/18] simvastatin 40 mg tablet 40 mg PO QHS #90 tab 06/03/17 [Rx Confirmed 02/23/18] cholecalciferol (vitamin D3) 2,000 unit capsule 2,000 unit PO QDAY cap 06/20/17 [History Confirmed 02/23/18] multivitamin tablet 1 tab PO QDAY 06/20/17 [History Confirmed 02/23/18] amoxicillin 500 mg tablet 500 mg PO .COMPLEX #4 tab 09/24/17 [Rx Confirmed 02/23/18] warfarin 1 mg tablet 1 mg PO QDAY 12/17/17 [History Confirmed 02/23/18] warfarin 3 mg tablet 3 mg PO QDAY 12/17/17 [History Confirmed 02/23/18] omeprazole 20 mg tablet,delayed release 20 mg PO BID tab 12/22/17 [History Confirmed 02/23/18] atenolol 25 mg tablet 25 mg PO .COMPLEX #135 tab 02/26/18 [Rx Confirmed 02/26/18] hydrocodone 5 mg-acetaminophen 325 mg tablet 1 tab PO TID PRN tab 02/26/18 [History Confirmed 02/23/18] PFSH Medical History 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) Hypothyroidism (acquired) (Chronic) Hyperlipidemia (Chronic) Bicuspid aortic valve (Chronic) Chronic back pain (Chronic) History of thyroid cancer (Chronic) GERD (gastroesophageal reflux disease) (Chronic) Hypertension (Chronic) History of TIA (transient ischemic attack) (Chronic) Vertigo (Chronic) Arthritis (Acute) Stroke (Acute) HTN (hypertension) (Chronic) Surgical History History of left heart catheterization (Chronic 11/2007) History of thyroidectomy (Acute) History of cholecystectomy (Chronic) Family History Father , age 65 CAD (coronary artery disease) Arthritis Myocardial infarction CVA (cerebral vascular accident) Mother Arthritis Hypertension Sister Arthritis Aunt Breast cancer Social History Smoking Status: Never smoker alcohol intake: never substance use type: does not use caffeine: Yes Type: carbonated beverages what type of physical activity do you participate in: none seatbelt use: always do you feel safe at home: Yes ROS Const Const: Positive for other (PCP decreased Atenolol for low bp, then pt had tachy+ palps: resumed full); negative for fatigue, weakness, body ache, fever(s), headache(s), chills, frequent falls, night sweats, daytime sleepiness, difficulty sleeping, excessive sweating, weight gain, weight loss, increased appetite, poor appetite or anorexia ENT ENT: Negative for headache(s) Cardio Chest Pain: No Palpitations: Yes (Feels more at night when lying down) feels like its: fast, thumping Edema: None Resp Respiratory: Positive for SOB with activity (Only with moderate exertion like walking or carrying heavy items); negative for SOB at rest, SOB orthopnea\SOB lying down, Cough, Coughing up blood/hemoptysis, chest congestion, pain on inspiration, snoring, stridor, wheezing, crackles, paroxysmal nocturnal dyspnea or other Neuro Neuro: Negative for weakness, headache(s) or frequent falls Endo Endo: Negative for fatigue or excessive sweating Cardiology Exam Const Appearance: cooperative, healthy appearing and no acute distress Nutritional Appearance: well nourished Orientation: alert, oriented x3 and oriented to person Head Head: normal to inspection, atraumatic and normocephalic Nose: external nose normal Face and Sinus: face symmetric Mouth: oral mucosae normal Eyes General: appearance normal, both eyes and all related structures Eyelids: eyelids normal Conjunctivae: conjunctivae normal Pupils: PERRL and normal by confrontation EOM: EOM intact bilaterally Neck Neck: normal visual inspection and full ROM Carotids: normal carotid upstroke Chest Chest inspection: normal inspection of the chest Auscultation: Bilateral: Clear to Auscultation Cardio Palpation: normal PMI Rate: regular rate Rhythm: regular rhythm Heart sounds: S2 normal Murmur: Grade 2/6 and crescendo-decrescendo GI GI: normal to inspection, no hepatosplenomegaly and bowel sounds present Neuro General: alert, oriented x3, awake, CN's II-XI intact bilaterally and moves all extremities Skin Skin: no rashes or lesions noted Extremities Pulses: Normal: Right Femoral Pulse, Left Femoral Pulse, Right Dorsalis Pedis Pulse, Left Dorsalis Pedis Pulse, Right Posterior Tibial Pulse, Left Posterior Tibial Pulse, Right Radial Pulse, Left Radial Pulse Lower Extremity Edema: None: Bilateral Psych Psychological: normal affect Assessment AND Plan 1. Essential hypertension I10 Plan 1. Hypertension: The patient has had episodes of hypotension requiring reduction of her beta-dragan therapy with subsequent increase in palpitations. Patient appears to be in sinus rhythm today. She has tried various permutations of atenolol including 25 mg twice daily, 50 mg once a day, all of which make her bradycardic and tired. I recommend that we continue atenolol 25 mg p.o. daily and add 12.5 mg of atenolol in the evening. She will return in 2 weeks time for a blood pressure check. Should the patient continue have palpitations we may require a 30-day event monitor to get a diagnosis. 2. Bicuspid aortic valve Q23.1 Plan 2. Bicuspid aortic valve: Patient's bicuspid valve is stable by serial echocardiograms. She has had no dizziness or lightheadedness, presyncope or syncope. Continue serial echocardiograms. 3. Hyperlipidemia E78.5 Plan 3. Hyperlipidemia: Her LDL and HDL cholesterol are at goal. Continue Zocor. 4. Factor V Leiden deficiency: The patient requires lifelong anticoagulation. Continue Coumadin therapy. 5. Return office in 6 months. This note was generated using a voice recognition system and there may be incorrect words, spelling or punctuation that were not noted when reviewing the office note prior to saving. Plan Detail Other Medications Changed: To: atenolol 25 mg PO a whole pill in the am and 0.5 tablet (12.5 mg) at bedtime; 135 tabs 3RF Follow Up +6M (Laureano) +2 weeks (BP check) Coding Level of Care Code Off vis,est,level 3 Diagnoses Essential hypertension I10 Hypertension type: essential hypertension Bicuspid aortic valve Q23.1 Hyperlipidemia E78.5 Coding Level of Care Code Off vis,est,level 3 Diagnoses Essential hypertension I10 Hypertension type: essential hypertension Bicuspid aortic valve Q23.1 Hyperlipidemia E78.5 02/26/18 1532 <Electronically signed by Jacinto Laureano MD> Date Jacinto Laureano MD Cosigner Signature: Date (if applicable) CC: Adelina Alvarenga DO CBC W/DIFF, AUTOMATED Collected: 02/04/2018 Status: F Source: [place] 2:17 PM [facility] [place] CODE TESTS RESULT OUT OF RANGE REFERENCE UNITS LAB L100.1000 4.4-11.0 K/mm3 Low WBC 4.3 LAB L100.1200 4.2-5.4 M/mm3 Normal RBC 4.28 LAB L100.1300 12.0-15.0 g/dl Normal HGB 13.6 LAB L100.1400 37-47 % Normal HCT 41.2 LAB L100.1500 81-99 fL Normal MCV 96.3 LAB L100.1600 27.0-32.0 pg Normal MCH 31.8 LAB L100.1700 32-36 g/gl Normal MCHC 33.0 LAB L100.1810 11.6-14.6 % Normal RDW CV 12.8 LAB L100.1820 35.1-43.9 fl Normal RDW SD 43.9 LAB L100.1900 150-450 K/mm3 Normal PLT 213 LAB L100.2000 6.2-12.0 fl Normal MPV 10.5 LAB L100.2100 47-70 % Low NEUT% 43.2 LAB L100.2200 19-41 % High LY% 42.2 LAB L100.2300 0-10 % High MONO% 12.1 LAB L100.2400 0-5 % Normal EO% 1.6 LAB L100.2500 0-1 % Normal BASO% 0.7 LAB L100.2550 0.0-0.9 % Normal IM GRAN % 0.200 Result Comment: IG% - Immature Granulocytes (promyelocytes, myelocytes and metamyelocytes) > 1% indicates that a LEFT SHIFT is Present. LAB L100.2620 2.0-7.7 X10 3/uL Low Absolute Neut 1.9 LAB L100.2720 0.83-4.51 X10 3/ul Normal Absolute Lymph 1.81 Performed By: #### L100.0100 #### [facility] [address] [place], [place], [id number] COMPREHENSIVE METABOLIC Collected: 02/04/2018 Status: F Source: [facility] 2:17 PM [facility] [place] CODE TESTS RESULT OUT OF RANGE REFERENCE UNITS LAB L501.0100 74-106 mg/dL Normal GLU 81 Result Comment: Please note revised GLUCOSE reference range effective 2017. LAB L501.1000 7-18 mg/dL Normal BUN 11 LAB L501.1100 0.55-1.02 mg/dL Normal CREAT,SERUM 0.87 Result Comment: The validity of the calculated GFR AND GFRAA in patients over 70 years has not been determined. Clinical correlation is essential. LAB L501.1110 >60 mL/min Normal EST GFR 69 Result Comment: Non- GFR Calc LAB L501.1115 >60 mL/min Normal EST GFR - AA 83 Result Comment: GFR Calc LAB L501.1300 10-20 RATIO Normal BUN/CRE 12.6 LAB L501.1500 6.4-8.2 g/dL T Normal PROT 6.5 LAB L501.1800 3.2-5.0 g/dL Normal ALB 3.6 LAB L501.1950 2.2-4.2 g/dL Normal GLOB 2.9 LAB L501.2000 0.9-2.4 RATIO Normal A/G 1.2 LAB L501.2200 8.5-10.1 mg/dL Low CA 8.4 LAB L501.4100 15-37 U/L Normal AST 23 LAB L501.4305 45-117 U/L Normal ALK P 96 LAB L501.4405 13-56 U/L Normal ALT 28 LAB L501.4600 0.20-1.00 mg/dL T Normal BILI 0.40 LAB L501.5300 136-145 mmol/L NA Normal 142 LAB L501.5600 3.5-5.1 mmol/L K Normal 3.9 LAB L501.5900 98-107 mmol/L CL Normal 107 LAB L501.6100 21.0-32.0 mmol/L Normal CO2 25.0 LAB L501.6200 5-15 Normal GAP 10 Performed By: #### L500.4050, L501.9520, L506.0400 #### [facility] [address] [place], [address] THYROID STIM HORMONE Collected: 02/04/2018 Status: F Source: [facility] (TSH) 2:17 PM [facility] [place] CODE TESTS RESULT OUT OF RANGE REFERENCE UNITS LAB L501.9520 0.358-3.74 uIU/mL Normal TSH 0.37 Performed By: #### L500.4050, L501.9520, L506.0400 #### [facility] [address] [place], [address] T4 FREE DIRECT Collected: 02/04/2018 Status: F Source: [place] 2:17 PM [facility] [place] TYPE CODE TESTS RESULT OUT OF RANGE REFERENCE UNITS LAB L506.0400 0.76-1.46 ng/dL Normal T4 FREE 1.19 DIRECT Performed By: #### L500.4050, L501.9520, L506.0400 #### [facility] [address] [place], [address] T3 TOTAL - TRIIODOTHYRONINE Collected: 02/04/2018 Status: F Source: [place] 2:17 PM [facility] [place] TYPE CODE TESTS RESULT OUT OF RANGE REFERENCE UNITS LAB L501.9186 0.6-1.81 ng/mL Normal T3 Total 0.90 Performed By: #### L501.9186 #### [facility] [address] [place], [address] PROTHROMBIN TIME W/INR Collected: 12/22/2017 Status: F Source: [place] 3:24 PM [facility] [place] TYPE CODE TESTS RESULT OUT OF RANGE REFERENCE UNITS LAB L300.4150 11.7-14.9 SECONDS High PROTIME 27.0 LAB L300.4200 Normal INR 2.5 Performed By: #### L300.3900 #### [facility] [address] [place], [address] CARDIOLOGY VISIT Observed: 12/22/2017 Status: F Source: [place] REPORT 3:17 PM [facility] [place] [facility] [address] [place] [address] OFFICE VISIT Date of Service: 12/22/17 MR#: [id number] Acct: [id number] Name: SHANE CHAMBERS Sacha Rep #: [id number] : 1950 Provider: Jacinto Laureano MD Age/Sex: 67/F [place] [facility] [place] Status: Signed HPI HPI Chief Complaint: Routine f/u Details: SHANE CHAMBERS, is a 67 F who presents to the office today for a cardiovascular outpatient follow-up. Patient has a history of factor V Leiden deficiency discovered after requiring a DVT in 2007 and in again in 2009, hypertension, bicuspid aortic valve, and hyperlipidemia. At last office visit patient expressed some fatigue and underwent a stress test and echocardiogram. Patient's last heart catheterization was in 2007. Pt. denies chest, arm, jaw, or neck discomfort. Her exercise tolerance is stable. Pt. denies symptoms of CHF, palpitations, lightheadedness, dizziness, near syncope, or syncopal episodes. Pt. denies edema or claudication issues. Pt. denies orthopnea, PND, fever, chills, blood in urine, blood in stool, myalgia, or unexplainable fatigue. She states some SOB with extreme exertion. Pt. states in May left arm achiness, shoulder and center chest pain for three days. This resolved on its own. She denies diaphoresis. nausea, SOB with the pain. She states a headache with this pain. She rated the pain a 8/10 and she described it as sharp. She states having the chest pain before, but not arm and shoulder pain. Cardiovascular stress echocardiogram from November 2016 showed an estimated ejection fraction of 65% and was negative for ischemia by both ECG and echo criteria. Echocardiogram from November 2016 showed an estimated ejection fraction of 65%, RVSP of 36 mmHg, bicuspid aortic valve, no aortic stenosis, trivial aortic valve insufficiency, and when compared to previous echocardiogram in October 2015 LV function and bicuspid aortic gradients have remained the same and RVSP has increased from 23-36 mmHg. Patient recently underwent a sinus procedure, and apparently developed some vertigo in August 2017. At that time she had episodes of hypotension and positional dizziness.. Patient had episode of dizziness around Mother's Day, and has had to hold her ramipril. She takes her blood pressure at home and it ranges between 9100 systolic. She is only taking her ramipril intermittently. She has had no presyncope or syncopal episodes. In our office today her blood pressure is 100/60 with a pulse of 68 and regular. Physical exam is as below. Lipids as of 11/12/17 show an LDL of 52 and an HDL of 63. Intake Vital Signs12/22/17 Height 4 ft 10.5 in 12/22/17 Weight: 135 lb 12/22/17 Body Mass Index (BMI) 27.7 12/22/17 Blood Pressure 100/60 Intake Visit Reasons: 6 M FU Allergies Iodinated Contrast- Oral and IV Dye [Iodinated Contrast Media - IV Dye] Allergy (Verified 12/22/17 13:16) Hives levofloxacin Adverse Reaction (Verified 12/22/17 13:16) abdominal pain naproxen [From Naprosyn] Adverse Reaction (Verified 12/22/17 13:16) Nausea Medications Levothyroxine [Synthroid] 75 mcg PO DAILY 10/28/13 [History Confirmed 12/22/17] Tizanidine HCl [Zanaflex] 4 mg PO QHS 10/28/13 [History Confirmed 12/22/17] atenolol 25 mg tablet 25 mg PO DAILY #90 tab 06/03/17 [Rx Confirmed 12/22/17] simvastatin 40 mg tablet 40 mg PO QHS #90 tab 06/03/17 [Rx Confirmed 12/22/17] hydrocodone 5 mg-acetaminophen 325 mg tablet 1 tab PO TID tab 06/17/17 [History Confirmed 12/22/17] cholecalciferol (vitamin D3) 2,000 unit capsule 2,000 unit PO QDAY cap 06/20/17 [History Confirmed 12/22/17] multivitamin tablet 1 tab PO QDAY 06/20/17 [History Confirmed 12/22/17] amoxicillin 500 mg tablet 500 mg PO .COMPLEX #4 tab 09/24/17 [Rx Confirmed 12/22/17] warfarin 1 mg tablet 1 mg PO QDAY 12/17/17 [History Confirmed 12/22/17] warfarin 3 mg tablet 3 mg PO QDAY 12/17/17 [History Confirmed 12/22/17] omeprazole 20 mg tablet,delayed release 20 mg PO BID tab 12/22/17 [History Confirmed 12/22/17] ramipril 5 mg capsule 5 mg PO .COMPLEX 12/22/17 [History Confirmed 12/22/17] [facility] Medical History 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) Hypothyroidism (acquired) (Chronic) Hyperlipidemia (Chronic) Bicuspid aortic valve (Chronic) Chronic back pain (Chronic) History of thyroid cancer (Chronic) GERD (gastroesophageal reflux disease) (Chronic) Hypertension (Chronic) History of TIA (transient ischemic attack) (Chronic) Vertigo (Chronic) Arthritis (Acute) Stroke (Acute) HTN (hypertension) (Chronic) Surgical History History of left heart catheterization (Chronic 11/2007) History of thyroidectomy (Acute) History of cholecystectomy (Chronic) Family History Father , age 65 CAD (coronary artery disease) Arthritis Myocardial infarction CVA (cerebral vascular accident) Mother Arthritis Hypertension Sister Arthritis Aunt Breast cancer Social History Smoking Status: Never smoker alcohol intake: never substance use type: does not use caffeine: Yes Type: carbonated beverages what type of physical activity do you participate in: none seatbelt use: always do you feel safe at home: Yes ROS Const Const: Negative for fatigue, weakness, body ache, fever(s), headache(s), chills, frequent falls, night sweats, daytime sleepiness, difficulty sleeping, excessive sweating, weight gain, weight loss, increased appetite, poor appetite, anorexia or other Eyes Eyes: Negative for blind spots, loss of peripheral vision, transient loss of vision, blurry vision, change in vision, double vision, floaters, tunnel vision or other ENT ENT: Negative for headache(s), dizziness, hearing loss, tinnitus, Nosebleed/epistaxis, balance problems, post nasal drip, lip swelling, tongue swelling, bleeding gums, hoarseness, neck pain, dry mouth or other Cardio Chest Pain: No Palpitations: No Edema: None Muscle aches with walking: None Resp Respiratory: Negative for SOB with activity, SOB at rest, SOB orthopnea\SOB lying down, Coughing up blood/hemoptysis, chest congestion, pain on inspiration, snoring, stridor, wheezing, crackles, paroxysmal nocturnal dyspnea or other GI GI: Negative nausea, vomiting, heartburn, constipation, belching, bloating, cramping, vomiting blood/hematemesis, bright, red blood in stools, black,tarry stools, loose stools, Difficulty Swallowing or other : Negative for hematuria, frequent nighttime urination/ nocturia, erectile dysfunction or abnormal vaginal bleeding Musc Musc: Negative for balance problems, muscle aches/ myalgia, muscle weakness or joint pain Skin Skin: Negative redness, non-healing lesions, rash, unusual bruising, skin ulcer, wounds, jaundice or other Neuro Neuro: Positive for other (Had some dizziness and poor balance in September, since then ok); negative for weakness, headache(s), frequent falls, blurry vision, double vision, dizziness, lightheadedness, near syncope, syncope, orthostatic symptoms, confusion, memory loss, restless legs, vertigo, seizures or lack of coordination [place] Hematologic/Lymphatic: Negative for easy bleeding, easy bruising, enlarged lymph nodes or other Endo Endo: Negative for fatigue, excessive sweating, cold intolerance, heat intolerance, flushing, increased thirst/drinking, increased hunger, hair loss, hair growth or other Psych Psych: Negative for anxiety, depression, thoughts of harming anyone, thoughts of harming yourself, visual hallucinations, panic attacks or audible hallucinations Allergy Allergy/Immunology: Negative for lip swelling, Negative for tongue swelling, Negative for rash, Negative for throat swelling, Negative for hives Cardiology Exam Const Appearance: cooperative, healthy appearing and no acute distress Nutritional Appearance: well nourished Orientation: alert, oriented x3 and oriented to person Head Head: normal to inspection, atraumatic and normocephalic Nose: external nose normal Face and Sinus: face symmetric Mouth: oral mucosae normal Eyes General: appearance normal, both eyes and all related structures Eyelids: eyelids normal Conjunctivae: conjunctivae normal Pupils: PERRL and normal by confrontation EOM: EOM intact bilaterally Neck Neck: normal visual inspection and full ROM Carotids: normal carotid upstroke Chest Chest inspection: normal inspection of the chest Auscultation: Bilateral: Clear to Auscultation Cardio Palpation: normal PMI Rate: regular rate Rhythm: regular rhythm Heart sounds: S2 normal Murmur: Grade 2/6 and crescendo-decrescendo GI GI: normal to inspection, no hepatosplenomegaly and bowel sounds present Neuro General: alert, oriented x3, awake, CN's II-XI intact bilaterally and moves all extremities Skin Skin: no rashes or lesions noted Extremities Pulses: Normal: Right Femoral Pulse, Left Femoral Pulse, Right Dorsalis Pedis Pulse, Left Dorsalis Pedis Pulse, Right Posterior Tibial Pulse, Left Posterior Tibial Pulse, Right Radial Pulse, Left Radial Pulse Lower Extremity Edema: None: Bilateral Psych Psychological: normal affect Assessment AND Plan 1. Atherosclerotic heart disease of [place] coronary artery without angina pectoris I25.10 Plan 1. Coronary artery disease: No exertional anginal symptoms at this time. No additional testing needed at this time. Recommend that she continue her atenolol. 2. Factor V deficiency D68.2 Plan 2. Factor V Leiden deficiency: Patient will require lifelong anticoagulation therapy given her history of DVTs in the past. 3. Hyperlipidemia E78.5 Plan 3. Hyperlipidemia: Her LDL and HDL cholesterol are at goal. Continue Zocor 4. Bicuspid aortic valve Q23.1 Plan 4. 4. Bicuspid aortic valve: The patient's most recent echocardiogram showed minimal if any aortic stenosis. Given her history of recent sinus surgical procedure and vertigo type symptoms, combined with her hypotension, I recommend discontinuation of ramipril at this time. She will continue atenolol however. Recommend serial echocardiograms on a every other year basis. 5. Return office in 6 month This note was generated using a voice recognition system and there may be incorrect words, spelling or punctuation that were not noted when reviewing the office note prior to saving. Plan Detail Other Medications Discontinued: Follow Up +6M (Georgi) Coding Level of Care Code Off vis,est,level 3 Diagnoses Atherosclerotic heart disease of [place] coronary artery without angina pectoris I25.10 Factor V deficiency D68.2 Hyperlipidemia E78.5 Bicuspid aortic valve Q23.1 Coding Level of Care Code Off vis,est,level 3 Diagnoses Atherosclerotic heart disease of [place] coronary artery without angina pectoris I25.10 Factor V deficiency D68.2 Hyperlipidemia E78.5 Bicuspid aortic valve Q23.1 12/22/17 1517 <Electronically signed by Jacinto Laureano MD> Date Jacinto Laureano MD Cosigner Signature: Date (if applicable) CC: Adelina Alvarenga DO HIP 2-3 VIEWS WITH Observed: 11/21/2017 Status: F Source: [place] 1:55 PM [facility] [place] [facility] Imaging Services [address] [place] [address] Hip 2-3 Views with Pelvis MR#: [id number] Acct: [id number] Name: SHANE CHAMBERS Rep #: [id number] : 1950 F 67 From: Watson Sheridan MD PCP: Adelina Alvarenga DO Status: REG CLI Study: Hip 2-3 Views with Pelvis Date of Exam: 11/21/17 Exam# [id number] Ordering Dr: Elzbieta Benedict MD STUDY: X-RAY - PELVIS AND RIGHT HIP REASON FOR EXAM: Female, 67 years old. Pain TECHNIQUE: Radiological exam, hip, unilateral, with pelvis when performed; 2 or 3 views. COMPARISON: None. FINDINGS: There is a non-specific bowel gas pattern. Normal visualized soft tissue structures. Normal bilateral iliac wings, sacroiliac joints and visualized sacrum. Normal bilateral superior and inferior pubic rami. Normal pubic symphysis. Normal bilateral ischial tuberosities. Normal visualized femoral head. Normal acetabulum. Normal hip joint. RAD/Hip 2-3 Views with Pelvis IMPRESSION: Normal x-ray examination of the pelvis and hip. No fracture. No osteoarthritis Electronically Signed: Watson Sheridan, at 6:34 EDT Tel , Service support , CC: Elzbieta Benedict MD; Adelina Alvarenga DO Pocket Stitcher: Signed CBC W/DIFF, AUTOMATED Collected: 11/12/2017 Status: F Source: [place] 6:27 AM [facility] [place] [facility] Order Comment: CBCD,PT,TSH,CMP FOR DR ALVARENGA LIVER LIPID FOR ROOF TYPE CODE TESTS RESULT OUT OF RANGE REFERENCE UNITS LAB L100.1000 4.4-11.0 K/mm3 Low WBC 3.3 LAB L100.1200 4.2-5.4 M/mm3 Normal RBC 4.33 LAB L100.1300 12.0-15.0 g/dl Normal HGB 13.8 LAB L100.1400 37-47 % Normal HCT 41.6 LAB L100.1500 81-99 fL Normal MCV 96.1 LAB L100.1600 27.0-32.0 pg Normal MCH 31.9 LAB L100.1700 32-36 g/gl Normal MCHC 33.2 LAB L100.1810 11.6-14.6 % Normal RDW CV 12.9 LAB L100.1820 35.1-43.9 fl High RDW SD 44.4 LAB L100.1900 150-450 K/mm3 Normal PLT 221 LAB L100.2000 6.2-12.0 fl Normal MPV 10.1 LAB L100.2100 47-70 % Normal NEUT% 50.0 LAB L100.2200 19-41 % Normal LY% 33.2 LAB L100.2300 0-10 % High MONO% 12.9 LAB L100.2400 0-5 % Normal EO% 2.7 LAB L100.2500 0-1 % Normal BASO% 0.9 LAB L100.2550 0.0-0.9 % Normal IM GRAN % 0.300 Result Comment: IG% - Immature Granulocytes (promyelocytes, myelocytes and metamyelocytes) > 1% indicates that a LEFT SHIFT is Present. LAB L100.2620 2.0-7.7 X10 3/uL Low Absolute Neut 1.7 LAB L100.2720 0.83-4.51 X10 3/ul Normal Absolute Lymph 1.11 Performed By: #### L100.0100 #### [facility] [address] [place], [address] PROTHROMBIN TIME W/INR Collected: 11/12/2017 Status: F Source: [place]I 6:23 AM [facility] [place] [facility] Order Comment: CBCD,PT,TSH,CMP FOR DR ALVARENGA LIVER LIPID FOR ROOF TYPE CODE TESTS RESULT OUT OF RANGE REFERENCE UNITS LAB L300.4150 11.7-14.9 SECONDS High PROTIME 29.8 LAB L300.4200 Normal INR 2.8 Performed By: #### L300.3900 #### [facility] [address] [place], [address] COMPREHENSIVE METABOLIC Collected: 11/12/2017 Status: F Source: WENDI [facility] 6:22 AM [facility] [place] [facility] Order Comment: CBCD,PT,TSH,CMP FOR DR ALVARENGA LIVER LIPID FOR ROOF TYPE CODE TESTS RESULT OUT OF RANGE REFERENCE UNITS LAB L501.0100 74-106 mg/dL Normal GLU 79 Result Comment: Please note revised GLUCOSE reference range effective 2017. LAB L501.1000 7-18 mg/dL Normal BUN 13 LAB L501.1100 0.55-1.02 mg/dL Normal CREAT,SERUM 0.81 Result Comment: The validity of the calculated GFR AND GFRAA in patients over 70 years has not been determined. Clinical correlation is essential. LAB L501.1110 >60 mL/min Normal EST GFR 75 Result Comment: Non- GFR Calc LAB L501.1115 >60 mL/min Normal EST GFR - AA 91 Result Comment: GFR Calc LAB L501.1300 10-20 RATIO Normal BUN/CRE 16.1 LAB L501.1500 6.4-8.2 g/dL T Normal PROT 6.6 LAB L501.1800 3.2-5.0 g/dL Normal ALB 3.5 LAB L501.1950 2.2-4.2 g/dL Normal GLOB 3.1 LAB L501.2000 0.9-2.4 RATIO Normal A/G 1.1 LAB L501.2200 8.5-10.1 mg/dL Low CA 8.1 LAB L501.4100 15-37 U/L Normal AST 22 LAB L501.4305 45-117 U/L Normal ALK P 99 LAB L501.4405 13-56 U/L Normal ALT 27 LAB L501.4600 0.20-1.00 mg/dL T Normal BILI 0.50 LAB L501.5300 136-145 mmol/L NA Normal 142 LAB L501.5600 3.5-5.1 mmol/L K Normal 3.8 LAB L501.5900 98-107 mmol/L High CL 108 LAB L501.6100 21.0-32.0 mmol/L Normal CO2 28.0 LAB L501.6200 5-15 Normal GAP 6 Performed By: #### L500.4050, L500.4100, L501.4700, L501.9520 #### [facility] [address] [place], [place], [address] LIPID PROFILE Collected: 11/12/2017 Status: F Source: [place] 6:22 AM [facility] [place] [facility] Order Comment: CBCD,PT,TSH,CMP FOR DR ALVARENGA LIVER LIPID FOR ROOF TYPE CODE TESTS RESULT OUT OF RANGE REFERENCE UNITS LAB L501.4900 200 mg/dL Normal CHOL 136 Result Comment: <200 mg/dL Desirable 200-240 mg/dL Borderline >240 mg/dL High Risk LAB L501.5000 mg/dL Normal TRIG 107 Result Comment: The drugs N-Acetylcysteine and Metamizole may falsely depress this assay. Serum Triglycerides Reference Interval Normal <150 mg/dL Borderline high 150 - 199 mg/dL High 200 - 499 mg/dL Very High > or = 500 mg/dL LAB L501.6400 mg/dL Normal HDL 63 Result Comment: The drugs N-Acetylcysteine and Metamizole may falsely depress this assay. Reference Range HDL <40 mg/dL Low HDL Cholesterol HDL >or= 60 mg/dL High HDL Cholesterol LAB L501.6500 0-130 mg/dL Normal LDL 52 LAB L501.6600 5-40 mg/dL Normal VLDL 21 Performed By: #### L500.4050, L500.4100, L501.4700, L501.9520 #### [facility] [address] [place], [place], [id number] BILIRUBIN, DIRECT Collected: 11/12/2017 Status: F Source: [place] 6:22 AM [facility] [place] [facility] Order Comment: CBCD,PT,TSH,CMP FOR DR ALVARENGA LIVER LIPID FOR ROOF TYPE CODE TESTS RESULT OUT OF RANGE REFERENCE UNITS LAB L501.4700 0.00-0.30 mg/dL Normal D BILI 0.16 Performed By: #### L500.4050, L500.4100, L501.4700, L501.9520 #### [facility] [address] [place], [address] THYROID STIM HORMONE Collected: 11/12/2017 Status: F Source: [place]I (TSH) 6:22 AM [facility] [place] [facility] Order Comment: CBCD,PT,TSH,CMP FOR DR ALVARENGA LIVER LIPID FOR ROOF TYPE CODE TESTS RESULT OUT OF RANGE REFERENCE UNITS LAB L501.9520 0.358-3.74 uIU/mL Normal TSH 0.61 Performed By: #### L500.4050, L500.4100, L501.4700, L501.9520 #### [facility] [address] [place], [address] PROTHROMBIN TIME W/INR Collected: 09/22/2017 Status: F Source: [place] 8:08 AM [facility] [place] [facility] TYPE CODE TESTS RESULT OUT OF RANGE REFERENCE UNITS LAB L300.4150 11.7-14.9 SECONDS High PROTIME 28.0 LAB L300.4200 Normal INR 2.6 Performed By: #### L300.3900 #### [facility] [place], [address] PROTHROMBIN TIME W/INR Collected: 09/01/2017 Status: F Source: [place] 12:08 PM [facility] [place] [facility] TYPE CODE TESTS RESULT OUT OF RANGE REFERENCE UNITS LAB L300.4150 11.7-14.9 SECONDS High PROTIME 31.4 LAB L300.4200 Normal INR 3.0 Performed By: #### L300.3900 #### [facility] [address] [place], [address] PROTHROMBIN TIME W/INR Collected: 08/13/2017 Status: F Source: [place] 12:39 PM [facility] [place] [facility] TYPE CODE TESTS RESULT OUT OF RANGE REFERENCE UNITS LAB L300.4150 11.7-14.9 SECONDS High PROTIME 31.3 LAB L300.4200 Normal INR 3.0 Performed By: #### L300.3900 #### [facility] [place], [address] SCREENING MAMM (CAD), Observed: 07/18/2017 Status: F Source: [place] 11:48 AM [facility] [place] [facility] [address] [place] [address] SCREENING MAMM (CAD), BILAT MR#: [id number] Acct: [id number] Name: SHANE CHAMBERS Rep #: [id number] : 1950 F 67 From: Efrain Klein MD PCP: Adelina Alvarenga DO Status: REG CLI Study: SCREENING MAMM (CAD), BILAT Date of Exam: 07/18/17 Exam# [id number] Ordering Dr: Adelina Alvarenga DO MAMMOGRAPHY - BILATERAL SCREENING REASON FOR EXAM: Female, 67 years old. Routine annual screening examination. PERTINENT HISTORY: Aunt with breast cancer. History of prior workup for right breast nodule. TECHNIQUE: Digital bilateral breast monica (3D mammographic acquisition) in the CC and MLO projections. 2-D mediolateral oblique (MLO) and craniocaudad (CC) views of both breasts were obtained. CAD: Full Field Digital Mammography with Computer Added Detection was performed. COMPARISON: Comparison is made with prior study dated July 04, 2016 and July 03, 2015. FINDINGS: Breast Composition: There are scattered areas of fibroglandular density. There are no dominant masses or suspicious calcifications. No other significant abnormalities are identified. There has been no significant change since the prior study. HPBI/SCREENING MAMM (CAD), BILAT IMPRESSION: Stable bilateral screening mammogram. Yearly follow-up mammogram recommended. (A) ASSESSMENT CATEGORY: BIRADS Category 1: Negative. A letter regarding these results will be sent to the patient by the facility within 30 days. Approximately 10% of breast cancers are not detected by mammography. A normal mammogram should not delay biopsy of a clinically suspicious abnormality. [id number] Electronically Signed: Efrain Klein MD at 13:19 EST Tel [phone], Service support , CC: Adelina Alvarenga DO Pocket Stitcher: Signed PROTHROMBIN TIME W/INR Collected: 06/30/2017 Status: F Source: [place] 10:37 AM [facility] [place] [facility] TYPE CODE TESTS RESULT OUT OF RANGE REFERENCE UNITS LAB L300.4150 11.7-14.9 SECONDS High PROTIME 29.2 LAB L300.4200 Normal INR 2.9 Performed By: #### L300.3900 #### [facility] [address] [place], [address] ALLERGIES ALLERGIES DATE TYPE / CODE NAME / CODE REACTION SEVERITY SOURCE 05/28/2018 Drug Iodinated Hives Unknown [place] Allergy/416 Contrast- Oral [facility] 901230([facility] ED CT) Dye/[id number](R Repository XNORM) 05/28/2018 Drug naproxen/[id number] Nausea Unknown [place] Allergy/416 380(RXNORM) [facility] 879396([facility] ED CT) Repository 05/28/2018 Drug levofloxacin/F00 ABDOMINAL PAIN Unknown [place] Allergy/204 5911931(RXNORM) [facility] 535807([facility] ED CT) Repository ENCOUNTERS ENCOUNTERS ADMIT/DISCHARGE ACCOUNT ADMITTING ENCOUNTER LOCATION SOURCE NUMBER CLASS 06/03/2018/ [id number] Ambulatory Wendi [place] 9 3 [facility] ing:SDCRoom: Repository AC18 06/01/2018 [id number] Ambulatory [place] 6 [facility] ing:LAB Repository 05/19/2018 [id number] Ambulatory Wendi Wendi 7 [facility] ing:BFHLAB Repository 05/14/2018 [id number] Ambulatory Wendi Wendi 1 [facility] ing:RAD Repository 03/13/2018/ [id number] Ambulatory BMSBuilding:B Wendi 8 7 [facility] Repository 02/26/2018/ [id number] Ambulatory BMSBuilding:B Wendi 8 3 [facility] Repository 02/04/2018 [id number] Ambulatory [place] Wendi 8 [facility] ing:BFHLAB Repository 01/10/2018 [id number] Ambulatory Wendi [place] 6 [facility] ing:LAB Repository 12/22/2017/ [id number] Ambulatory [place] 8 5 [facility] ing:LAB Repository 12/22/2017/ [id number] Ambulatory BMSBuilding:B Wendi 8 7 [facility] Repository 12/17/2017 [id number] Ambulatory BMSBuilding:B Wendi 8 [facility] Repository 11/21/2017 [id number] Ambulatory [place] Wendi 6 [facility] ing:RAD Repository 11/12/2017/ [id number] Ambulatory Wendi [place] 8 3 [facility] ing:LAB Repository 10/30/2017 [id number] Ambulatory [place] 0 [facility] ing:LAB.FUTUR Repository E 09/22/2017/ [id number] Ambulatory Wendi [place] 8 0 [facility] ing:LAB Repository 08/13/2017/ [id number] Ambulatory [place] 8 3 [facility] ing:LAB Repository 07/18/2017 [id number] Ambulatory Wend[place] 2 [facility] ing:BI Repository 06/30/2017/ [id number] Ambulatory Wend[place] 8 0 [facility] ing:LAB Repository PAYERS PAYERS ENCOUNTER GUARANTOR PAYER SUBSCRIBER SOURCE 06/03/2018 SHANE L Primary SHANE L [place] [id number] E Insurance:MEDICARE BEGB: [facility] PART A [facility] [id number] Number: Repository [address]Vvk: [phone] [id number] [phone] () Date:2018-05-15 06/03/2018 Secondary SHANE L [place] Insurance:AETNA SR BEGLYDOB: Community SUPPLEMENT INSPolicy [id number] Hospital Number: Repository [id number] Date:1902-44-07WKHVO SENIOR SUPPLEMENT [address] [place] [address]KO: 06/03/2018 Tertiary NOT GIVENUNK [place] Insurance:SELF PAY [facility] Number: Effective Repository Date:2018-05-15 06/01/2018 SHANE L Primary SHANE L [place] [id number] E Insurance:MEDICARE BEGLYDOB: Community KALEE [address] PART A [facility] [id number] Number: Repository [address]Rnx: [phone] [id number] [phone] (HP) Date:2018-06-01 06/01/2018 Secondary SHANE L [place] Insurance:AETNA SR BEGLYDOB: Community SUPPLEMENT [facility] [id number] Hospital Number: Repository [id number] Date:3731-30-27ZYDHR SENIOR SUPPLEMENT [address] [place] [address]AR: 06/01/2018 Tertiary NOT GIVENUNK [place] Insurance:SELF PAY [facility] Number: Effective Repository Date:2018-06-01 05/19/2018 SHANE L Primary SHANE L [place] [id number] E Insurance:MEDICARE BEGLYDOB: Community KALEE [address] PART A [facility] [id number] Number: Repository [address]Mqa: [phone] [id number] [phone] (HP) Date:2018-05-19 05/19/2018 Secondary SHANE L [place] Insurance:AETNA SR BEGLYDOB: Community SUPPLEMENT [facility] [id number] Hospital Number: Repository [id number] Date:2946-01-29PUADE SENIOR SUPPLEMENT [address] [place] [address]CU: 05/19/2018 Tertiary NOT GIVENUNK [place] Insurance:SELF PAY [facility] Number: Effective Repository Date:2018-05-19 05/14/2018 SHANE L Primary SHANE L [place] [id number] E Insurance:MEDICARE BEGLYDOB: Community KALEE [address] PART A [facility] [id number], [place] Number: Repository [address]Dgx: 330 [id number] [phone] (HP) Date:2018-05-14 05/14/2018 Secondary SHANE L [place] Insurance:AETNA SR BEGLYDOB: Community SUPPLEMENT INSPolicy [id number] Hospital Number: Repository [id number] Date:8840-71-71DDJAP SENIOR SUPPLEMENT [address] [place] [address]GQ: 05/14/2018 Tertiary NOT GIVENUNK [place] Insurance:SELF PAY [facility] Number: Effective Repository Date:2018-05-14 03/13/2018 SHANE L Primary SHANE L [place] [id number] E Insurance:MEDICARE BEGLYDOB: Community KALEE [address] PART A [facility] [id number], [place] Number: Repository [address]Ubf: 330 [id number] [phone] (HP) Date:2018-02-26 03/13/2018 Secondary SHANE L [place] Insurance:AETNA SR BEGLYDOB: Community SUPPLEMENT [facility][1]olicy [id number] Hospital Number: Repository [id number] Date:4521-45-28QXDEV SENIOR SUPPLEMENT [address] [place] [address]XJ: 03/13/2018 Tertiary NOT GIVENUNK [place] Insurance:SELF PAY [facility] Number: Effective Repository Date:2018-03-13 02/26/2018 SHANE L Primary SHANE L [place] [id number] E Insurance:MEDICARE BEGLYDOB: Community KALEE [address] PART A [facility] [id number], [place] Number: Repository [address]Aqi: 330 [id number] [phone] (HP) Date:2018-02-23 02/26/2018 Secondary SHANE L [place] Insurance:AETNA SR BEGLYDOB: Community SUPPLEMENT INSPolicy [id number] Hospital Number: Repository [id number] Date:8277-99-89YFSAJ SENIOR SUPPLEMENT [address] [place] [address]BF: 02/26/2018 Tertiary NOT GIVENUNK [place] Insurance:SELF PAY [facility] Number: Effective Repository Date:2018-02-25 02/04/2018 SHANE L Primary SHANE L [place] [id number] E Insurance:MEDICARE BEGLYDOB: Community KALEE [address] PART A [facility] [id number] Number: Repository [address]Mru: [phone] [id number] [phone] (HP) Date:2018-02-04 02/04/2018 Secondary SHANE L [place] Insurance:AETNA SR BEGLYDOB: Community SUPPLEMENT [facility] [id number] Hospital Number: Repository [id number] Date:6668-68-99TCUCX SENIOR SUPPLEMENT [address] [address], [place] [address]NF: 02/04/2018 Tertiary NOT GIVENUNK [place] Insurance:SELF PAY [facility] Number: Effective Repository Date:2018-02-04 01/10/2018 SHANE L Primary SHANE L [place] [id number] E Insurance:MEDICARE BEGLYDOB: Community K[address]EE [address] PART A [facility] [id number] [facility] Number: Repository [address]Xhq: 330 [id number] [phone] (HP) Date:2017-07-04 01/10/2018 Secondary SHANE L [place] Insurance:AETNA SR BEGLYDOB: Community SUPPLEMENT [facility] [id number] Hospital Number: Repository [id number] Date:0325-86-34YNUDF SENIOR SUPPLEMENT [address] [address]QY[place], [place] [address]MD: 01/10/2018 Tertiary NOT GIVENUNK [place] Insurance:SELF PAY [facility] Number: Effective Repository Date:2018-01-01 12/22/2017 SHANE L Primary SHANE L [place] [id number] E Insurance:MEDICARE BEGLYDOB: Community KALEE [address] PART A [facility] [id number], [place] Number: Repository [address]Hnh: 330 [id number] [phone] () Date:2017-07-04 12/22/2017 Secondary SHANE L [place] Insurance:AETNA SR BEGLYDOB: Community SUPPLEMENT [facility] [id number] Hospital Number: Repository [id number] Date:1079-85-79NNMSK SENIOR SUPPLEMENT [address] [place] [address]XK: 12/22/2017 Tertiary NOT GIVENUNK [place] Insurance:SELF PAY [facility] Number: Effective Repository Date:2017-11-28 12/22/2017 SHANE L Primary SHANE L [place] [id number] E Insurance:MEDICARE BEGLYDOB: Community KALEE [address] PART A [facility] [id number], [place] Number: Repository [address]Ide: 330 [id number] [phone] () Date:2017-06-20 12/22/2017 Secondary SHANE L [place] Insurance:AETNA SR BEGLYDOB: Community SUPPLEMENT [facility] [id number] Hospital Number: Repository [id number] Date:4094-71-44KQXRL SENIOR SUPPLEMENT [address] [place] [address]ZO: 12/22/2017 Tertiary NOT GIVENUNK [place] Insurance:SELF PAY [facility] Number: Effective Repository Date:2017-12-22 12/17/2017 SHANE L Primary SHANE L [place] [id number] E Insurance:MEDICARE BEGLYDOB: Community K[address]EE [address] PART A [facility] [id number], [place] Number: Repository [address]Jha: 330 [id number] [phone] (HP) Date:2017-12-17 12/17/2017 Secondary SHANE L [place] Insurance:AETNA SR BEGLYDOB: Community SUPPLEMENT [facility] [id number] Hospital Number: Repository [id number] Date:0537-31-07ZAVFA SENIOR SUPPLEMENT [address] [address]KQ[place]XAW[place], [place] [address]EN: 12/17/2017 Tertiary NOT GIVENUNK [place] Insurance:SELF PAY [facility] Number: Effective Repository Date:2017-12-17 11/21/2017 SHANE L Primary SHANE L [place] [id number] E Insurance:MEDICARE BEGLYDOB: Community KALEE [address] PART A [facility] [id number] [facility] Number: Repository [address]Kye: 330 [id number] [phone] (HP) Date:2017-11-21 11/21/2017 Secondary SHANE L [place] Insurance:AETNA SR BEGLYDOB: Community SUPPLEMENT [facility] [id number] Hospital Number: Repository [id number] Date:6504-63-59CRCTO SENIOR SUPPLEMENT [address] [address], [place] [address]IP: 11/21/2017 Tertiary NOT GIVENUNK [place] Insurance:SELF PAY [facility] Number: Effective Repository Date:2017-11-21 11/12/2017 SHANE L Primary SHANE L [place] [id number] E Insurance:MEDICARE BEGLYDOB: Community KALEE [address] PART A [facility] [id number], [place] Number: Repository [address]Tsy: 330 [id number] [phone] (HP) Date:2017-07-04 11/12/2017 Secondary SHANE L [place] Insurance:AETNA SR BEGLYDOB: Community SUPPLEMENT [facility] [id number] Hospital Number: Repository [id number] Date:9720-45-36VLFIW SENIOR SUPPLEMENT [address] [place] [address]ZP: 11/12/2017 Tertiary NOT GIVENUNK [place] Insurance:SELF PAY [facility] Number: Effective Repository Date:2017-09-30 10/30/2017 SHANE L Primary SHANE L [place] [id number] E Insurance:MEDICARE BEGLYDOB: Community KALEE [address]LE PART A [facility] [id number] [facility] Number[place] Repository [address]Dcz: 330 [id number] [phone] (HP) Date:2017-10-30 10/30/2017 Secondary SHANE L [place] Insurance:AETNA SR BEGLYDOB: Community SUPPLEMENT [facility] [id number] Hospital Number: Repository [id number] Date:3422-34-40UQDQQ SENIOR SUPPLEMENT [address] [place] [address]CG: 10/30/2017 Tertiary NOT GIVENUNK [place] Insurance:SELF PAY [facility] Number: Effective Repository Date:2017-10-30 09/22/2017 SHANE L Primary SHANE L [place] [id number] E Insurance:MEDICARE BEGLYDOB: Community KALEE RD[address]LE PART A [facility] [id number] [place] Number: Repository [address]Nyz: 330 [id number] [phone] () Date:2017-07-04 09/22/2017 Secondary SHANE L [place] Insurance:AETNA SR BEGLYDOB: Community SUPPLEMENT [facility] [id number] Hospital Number: Repository [id number] Date:5038-60-00OKBYI SENIOR SUPPLEMENT [address] [place] [address]LU: 09/22/2017 Tertiary NOT GIVENUNK [place] Insurance:SELF PAY Community [facility] Number: Effective Repository Date:2017-09-01 08/13/2017 SHANE L Primary SHANE L [place] [id number] E Insurance:MEDICARE BEGLYDOB: Community KALEE RD[address]LE PART A [facility] [id number] [facility] Number: Repository [address]Onc: 330 [id number] [phone] (HP) Date:2017-07-04 08/13/2017 Secondary SHANE L [place] Insurance:AETNA SR BEGLYDOB: Community SUPPLEMENT [facility] [id number] Hospital Number: Repository [id number] Date:3299-55-88WSHVV SENIOR SUPPLEMENT [address] [address]CVGFDTVVB, [place] [address]IJ: 08/13/2017 Tertiary NOT GIVENUNK [place] Insurance:SELF PAY [facility] Number: Effective Repository Date:2017-07-04 07/18/2017 SHANE L Primary SHANE L [place] [id number] E Insurance:MEDICARE BEGLYDOB: Community KALEE RDAPPLE PART A [facility] [id number] [facility] Number: Repository [address]Fup: 330 [id number] [phone] (HP) Date:2017-06-23 07/18/2017 Secondary SHANE L [place] Insurance:AETNA SR BEGLYDOB: Community SUPPLEMENT [facility] [id number] Hospital Number: Repository [id number] Date:[id number] SENIOR SUPPLEMENT [address], [place] [address]MQ: 07/18/2017 Tertiary NOT GIVENUNK Wendi Insurance:SELF PAY [facility]: Effective Repository Date:2017-06-23 06/30/2017 SHANE L Primary SHANE L Wendi [id number] Insurance:MEDICARE BEGLYDOB: Community KALEE RDAPPLE PART A [id number] [place] [facility] Repository [id number]: [id number] [phone] (HP) Date:2017-04-12 06/30/2017 Secondary SHANE L [place] Insurance:AETNA SR BEGLYDOB: Community SUPPLEMENT [facility] [id number] Number: Repository [id number] Date:[id number] SENIOR SUPPLEMENT [address] [address], [place] [address]ZN: 06/30/2017 Tertiary NOT GIVENUNK [place] Insurance:SELF PAY [facility] Number: Effective Repository Date:2017-06-02
== END ==
PROVIDERS: Family Provider Family Medicine; PCP Family Medicine; Referring Provider Family Medicine; Visit Provider Family Medicine
DX: R07.81 Pleurodynia (principal)
CPT/HCPCS: 71100

== ENCOUNTER → 2018-05-19 15:19 | Outpatient (CLI) | payer MEDICARE, OTHER, SELFPAY ==
[2018-05-19 17:25] LABS: Absolute Lymphocyte Count 1.31 X10^3/ul (0.83-4.51); Absolute Neutrophil Count 3.9 X10^3/uL (2.0-7.7); Basophil# 0.06 X10^3/uL; Eosinophils% 1.7 % (0-5); Hematocrit 41.9 % (37-47); Hemoglobin 13.8 g/dl (12.0-15.0); Lymphocyte # 1.31 X10^3/ul (4.0); Lymphocyte % 22.4 % (19-41); Mean Corp Hgb Conc 32.9 g/gl (32-36); Mean Corpuscular Hgb 31.9 pg (27.0-32.0); Mean Corpuscular Volume 96.8 fL (81-99); Mean Platelet Vol. 10.6 fl (6.2-12.0); Monocyte# 0.44 X10^3/uL; Monocyte% 7.5 % (0-10); Neutrophil # 3.93 X10^3/uL (2.7-7.7); Neutrophil % 67.2 % (47-70); Platelet Count 212 K/mm3 (150-450); RBC Distribution Width CV 13.4 % (11.6-14.6); RBC Distribution Width SD 45.8 fl (35.1-43.9); Red Blood Count 4.33 M/mm3 (4.2-5.4); White Blood Count 5.9 K/mm3 (4.4-11.0)
[2018-05-19 17:41] LABS: POSITIVE COUNT NO; POSITIVE DIFFERENTIAL NO; POSITIVE MORPHOLOGY NO
--- OUTSIDE RECORDS SUMMARY | 2018-08-21 03:57 | XMS RPT_ITS ---
:1950 Author Organization [place] Support Name Relationship Address Phone RYANNE CHAMBERS Unavailable [address] + [place] [address] R Unavailable Unavailable Unavailable August Unavailable [address] + [place] [facility] [address] RYANNE CHAMBERS Unavailable [address] + [place] [address] R Unavailable Unavailable Unavailable August Unavailable [address] + [place] [facility] [place] [address] RYANNE CHAMBERS Unavailable [address] + [place] [address] R Unavailable Unavailable Unavailable August Unavailable [address] + [place] [address] RYANNE CHAMBERS Unavailable [address] + [place] [address] R Unavailable Unavailable Unavailable August Unavailable [address] + [place] [facility] [place] [address] RYANNE CHAMBERS Unavailable [address] + [place] [address] R Unavailable Unavailable Unavailable August Unavailable . + [place] [address] RYANNE CHAMBERS Unavailable [address] + [place] [address] R Unavailable Unavailable Unavailable August Unavailable . + [place] [address] RYANNE CHAMBERS Unavailable [address] + [place] [address] R Unavailable Unavailable Unavailable August Unavailable Unavailable + [place] [address] RYANNE CHAMBERS Unavailable [address] + [place] [address] R Unavailable Unavailable Unavailable SPRANG, AUGUST Unavailable Unavailable + [place] [address] RYANNE CHAMBERS Unavailable [address] + [place] [address] R Unavailable Unavailable Unavailable SPRANG, AUGUST Unavailable Unavailable + [place] [address] RYANNE CHAMBERS Unavailable [address] + [place] [address] R Unavailable Unavailable Unavailable SPRANG, AUGUST Unavailable . + [place] [address] RYANNE CHAMBERS Unavailable [address] + [place] [address] R Unavailable Unavailable Unavailable SPRANG, AUGUST Unavailable Unavailable + RYANNE CHAMBERS Unavailable [address] + [place] [address] R Unavailable Unavailable Unavailable SPRANG, AUGUST Unavailable Unavailable + RYANNE CHAMBERS Unavailable [address] [phone] [place] [address] R Unavailable Unavailable Unavailable SPRANG, AUGUST Unavailable Unavailable + RYANNE CHAMBERS Unavailable [address] [phone] [place] [address] R Unavailable Unavailable Unavailable SPRANG, IRIS Unavailable Unavailable + RYANNE CHAMBERS Unavailable [address] [phone] [place] [address] R Unavailable Unavailable Unavailable SPRANG, IRIS Unavailable Unavailable + RYANNE CHAMBERS Unavailable [address] [phone] [place] [address] R Unavailable Unavailable Unavailable SPRANG, IRIS Unavailable Unavailable + RYANNE CHAMBERS Unavailable [address] [phone] [place] [address] R Unavailable Unavailable Unavailable SPRANG, IRIS Unavailable Unavailable + RYANNE CHAMBERS Unavailable NA + [place], [place] R Unavailable Unavailable Unavailable August Unavailable NA + NA, [place] Care Team Providers Name Role Phone Malys, Adelina Attending Unavailable Malys, Adelina Referring [...] Unknown Z01.818 - Encounter Elzbieta Benedict Active [place] for other Community preprocedural Hospital examination / Repository Z01.818(ICD-10) 05/14/2018 Unknown 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, 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 / Community R07.81(ICD-10) Hospital Repository 02/26/2018 Unknown E78.5 - Jacinto Laureano Active [place] Hyperlipidemia, Community unspecified / Hospital E78.5(ICD-10) Repository 02/26/2018 Unknown I10 - Essential Jacinto Laureano Active [place] (primary) [facility] hypertension / Hospital I10(ICD-10) Repository 02/26/2018 Unknown 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 / Hospital Q23.1(ICD-10) Repository 01/01/2018 Unknown 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 / Hospital D68.2(ICD-10) Repository 11/21/2017 Unknown M25.551 - Pain in MiedElzbieta garcia Active [place] right hip / [facility] M25.551(ICD-10) Hospital Repository 11/28/2017 Unknown E03.9 - Malys, Adelina Active [place] Hypothyroidism, [facility] unspecified / Hospital E03.9(ICD-10) Repository 07/03/2017 Unknown I48.0 - Paroxysmal Malys, Adelina Active [place] atrial fibrillation [facility] / I48.0(ICD-10) Hospital Repository PROCEDURES PROCEDURES No Procedure Records FoundRESULTS RESULTS OPERATIVE REPORT Observed: 06/03/2018 Status: F Source: [place] 3:08 PM [facility] [place] [facility] Medical Records Department [address] [place] [address] Operative Report 06/03/18 0715 MR#: [id number] Acct: [id number] Name: SHANE CHAMBERS Rep #: [id number] : 1950 68 From: Cornelius Dyer MD PCP: Adelina Alvarenga DO Status: [facility] [place] [facility] [place] of Operation Date of Procedure: 06/03/18 Pre-Operative Diagnosis: Right first [facility] Osteoarthritis Post-Operative Diagnosis: Right first [facility] osteoarthritis Surgery/Procedure Performed:: Right first [facility]MC arthroplasty. Right FCR tendon transfer Description of Surgical Findings:: Stable tendon transfer associate sales representative: Chapis Martino Type of Anesthesia:: General Anesthesiologist: [...] Status: F Source: [place] FINGERSTIC 8:13 AM [facility] [place] TYPE CODE TESTS RESULT OUT OF REFERENCE UNITS RANGE LAB L9200.1001 11.9-14.4 SEC Low PROTIME ISTAT 11.8 Result Comment: Reference Range 11.9 - 14.4 LAB L9200.2000 Normal INR ISTAT 1.00 Result Comment: Critical Value > 3.5 Performed By: #### L9200.0000 #### [facility] Point of Care [address] [place] [address] LIVER PROFILE Collected: 06/01/2018 Status: F Source: [place] 6:09 AM [facility] [place] TYPE CODE TESTS RESULT OUT OF [...] 0.18 Performed By: #### L500.3400, L500.4100 #### [facility] [address] [place], [place], [address] LIPID PROFILE Collected: 06/01/2018 Status: F Source: [place] 6:09 AM [facility] [place] TYPE CODE TESTS RESULT OUT OF [...] 23 Performed By: #### L500.3400, L500.4100 #### [facility] [address] [place], [place], [address] HISTORY AND PHYSICAL Observed: 05/23/2018 Status: F Source: [place] EXAM 12:00 AM [facility] [place] [facility] Medical Records Department [address] [place] [address] History and Physical 05/23/18 0000 MR#: [id number] Acct: [id number] Name: SHANE CHAMBERS Rep #: [id number] : 1950 68 From: David Brown PA-C PCP: Adelina Alvarenga DO [place] [facility] [place] [facility] [place] History and Physical DATE OF SURGERY: 06/03/2018 [...] She is followed by Dr. Laureano her wafer substrate tester. 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 Personal Habits: Cigarette [...] Vitamin D-3 2000 Unit 1 PO weekly, Mercedes 5-325 mg 1-2 by mouth every 6 [...] physician. We're also getting clearance from patient's wafer substrate tester. Patient will stop the Coumadin 5 days [...] 05/19/2018 Status: F Source: [place] 3:21 PM [facility] [place] TYPE CODE TESTS RESULT OUT OF [...] Lymph 1.31 Performed By: #### L100.0100 #### [facility] [address] [facility] [place], [address] RIBS UNIL 2V NO Observed: 05/14/2018 Status: F Source: [place] CXR 3:46 PM [facility] [place] [facility] Imaging Services [address] [place] [address] Ribs Unil 2V No CXR MR#: [id number] Acct: [id number] Name: SHANE CHAMBERS Rep #: [id number] : 1950 F 68 From: Erick Villagomez MD PCP: Adelina Alvarenga DO Status: REG CLI Study: Ribs Unil 2V No CXR Date of Exam: 05/14/18 Exam# [id number] Ordering Dr: Adelina Alvarenga DO STUDY: X-RAY [...] Service support , CC: Adelina Alvarenga DO Insurance Marketing Specialist: Signed CARDIOLOGY VISIT Observed: 02/26/2018 Status: F Source: [place] REPORT 3:32 PM [facility] [place] [facility] [place] [address] OFFICE VISIT Date of Service: 02/26/18 MR#: [id number] Acct: [id number] Name: SHANE CHAMBERS Rep #: [id number] : 1950 Provider: Jacinto Laureano MD Age/Sex: 67/F Location: [facility] [place] Status: Signed HPI HPI Chief Complaint: Routine [...] PFSH Medical History Atherosclerotic heart disease of [place] coronary artery without angina pectoris (Chronic) History [...] 02/04/2018 Status: F Source: [place] 2:17 PM [facility] [place] TYPE CODE TESTS RESULT OUT OF [...] Lymph 1.81 Performed By: #### L100.0100 #### [facility] [address] [place], [place], [id number] COMPREHENSIVE METABOLIC Collected: 02/04/2018 Status: F Source: [place] [facility] 2:17 PM [facility] [place] TYPE CODE TESTS RESULT OUT OF [...] Performed By: #### L500.4050, L501.9520, L506.0400 #### [facility] [address] [place], [address] THYROID STIM HORMONE Collected: 02/04/2018 Status: F Source: [place] (TSH) 2:17 PM [facility] [place] TYPE CODE TESTS RESULT OUT OF RANGE REFERENCE UNITS LAB L501.9520 0.358-3.74 uIU/mL Normal TSH 0.37 Performed By: #### L500.4050, L501.9520, L506.0400 #### [facility] [address] [place], [address] T4 FREE DIRECT Collected: 02/04/2018 Status: F Source: [place] 2:17 PM [facility] [place] TYPE CODE TESTS RESULT OUT OF RANGE REFERENCE UNITS LAB L506.0400 0.76-1.46 ng/dL Normal T4 FREE 1.19 DIRECT Performed By: #### L500.4050, L501.9520, L506.0400 #### [facility] [address] [place], [address] T3 TOTAL - TRIIODOTHYRONINE Collected: 02/04/2018 Status: F Source: [place] 2:17 PM [facility] [place] TYPE CODE TESTS RESULT OUT OF RANGE REFERENCE UNITS LAB L501.9186 0.6-1.81 ng/mL Normal T3 Total 0.90 Performed By: #### L501.9186 #### [facility] [address] [place], [address] PROTHROMBIN TIME W/INR Collected: 12/22/2017 Status: F Source: [place] 3:24 PM [facility] [place] TYPE CODE TESTS RESULT OUT OF RANGE REFERENCE UNITS LAB L300.4150 11.7-14.9 SECONDS High PROTIME 27.0 LAB L300.4200 Normal INR 2.5 Performed By: #### L300.3900 #### [facility] [address] [facility] [place], [address] CARDIOLOGY VISIT Observed: 12/22/2017 Status: F Source: [place] REPORT 3:17 PM [facility] [place] [facility] [address] [place] [address] OFFICE VISIT Date of Service: 12/22/17 MR#: [id number] Acct: [id number] Name: SHANE CHAMBERS Sacha Rep #: [id number] : 1950 Provider: Jacinto Laureano MD Age/Sex: 67/F Location[place] [facility] [place] Status: Signed HPI HPI Chief Complaint: [...] mg PO .COMPLEX 12/22/17 [History Confirmed 12/22/17] [facility] Medical History Atherosclerotic heart disease of [place] coronary artery without angina pectoris (Chronic) History [...] AND Plan 1. 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 D68.2 Hyperlipidemia E78.5 Bicuspid aortic valve Q23.1 12/22/17 1517 <Electronically signed by Jacinto Laureano MD> Date Jacinto Laureano MD Cosigner Signature: Date (if applicable) CC: Adelina Alvarenga DO HIP 2-3 VIEWS WITH Observed: 11/21/2017 Status: F Source: [place] PELVIS 1:55 PM [facility] [place] [facility] Imaging Services [address] [place] [address] Hip 2-3 Views with Pelvis MR#: [id number] Acct: [id number] Name: SHANE CHAMBERS Rep #: [id number] : 1950 F 67 From: Watson Sheridan MD PCP: Adelina Alvarenga DO Status: REG CLI Study: Hip 2-3 Views with Pelvis Date of Exam: 11/21/17 Exam# [id number] Ordering Dr: Elzbieta Benedict MD STUDY: X-RAY [...] CC: Elzbieta Benedict MD; Adelina Alvarenga DO Insurance Marketing Specialist: Signed CBC W/DIFF, AUTOMATED Collected: 11/12/2017 Status: F Source: [place] 6:27 AM [facility] [place] Order Comment: CBCD,PT,TSH,CMP FOR DR ALVARENGA [...] Lymph 1.11 Performed By: #### L100.0100 #### [facility] [address] [place], [address] PROTHROMBIN TIME W/INR Collected: 11/12/2017 Status: F Source: [place] 6:23 AM [facility] [place] Order Comment: CBCD,PT,TSH,CMP FOR DR ALVARENGA LIVER LIPID FOR ROOF TYPE CODE TESTS RESULT OUT OF RANGE REFERENCE UNITS LAB L300.4150 11.7-14.9 SECONDS High PROTIME 29.8 LAB L300.4200 Normal INR 2.8 Performed By: #### L300.3900 #### [facility] [address] [place], [address] COMPREHENSIVE METABOLIC Collected: 11/12/2017 Status: F Source: [place] [facility] 6:22 AM [facility] [place] Order Comment: CBCD,PT,TSH,CMP FOR DR ALVARENGA [...] By: #### L500.4050, L500.4100, L501.4700, L501.9520 #### [facility] [address] [place], [place], [address] LIPID PROFILE Collected: 11/12/2017 Status: F Source: [place] 6:22 AM [facility] [place] Order Comment: CBCD,PT,TSH,CMP FOR DR ALVARENGA [...] By: #### L500.4050, L500.4100, L501.4700, L501.9520 #### [facility] [address] [place], [place], [address] BILIRUBIN, DIRECT Collected: 11/12/2017 Status: F Source: [place] 6:22 AM [facility] [place] Order Comment: CBCD,PT,TSH,CMP FOR DR ALVARENGA LIVER LIPID FOR ROOF TYPE CODE TESTS RESULT OUT OF RANGE REFERENCE UNITS LAB L501.4700 0.00-0.30 mg/dL Normal D BILI 0.16 Performed By: #### L500.4050, L500.4100, L501.4700, L501.9520 #### [facility] [address] [place], [address] THYROID STIM HORMONE Collected: 11/12/2017 Status: F Source: [place] (TSH) 6:22 AM [facility] [place] Order Comment: CBCD,PT,TSH,CMP FOR DR ALVARENGA LIVER LIPID FOR ROOF TYPE CODE TESTS RESULT OUT OF RANGE REFERENCE UNITS LAB L501.9520 0.358-3.74 uIU/mL Normal TSH 0.61 Performed By: #### L500.4050, L500.4100, L501.4700, L501.9520 #### [facility] [address] [place], [address] PROTHROMBIN TIME W/INR Collected: 09/22/2017 Status: F Source: [place] 8:08 AM [facility] [place] TYPE CODE TESTS RESULT OUT OF RANGE REFERENCE UNITS LAB L300.4150 11.7-14.9 SECONDS High PROTIME 28.0 LAB L300.4200 Normal INR 2.6 Performed By: #### L300.3900 #### [facility] [facility] [place], [address] PROTHROMBIN TIME W/INR Collected: 09/01/2017 Status: F Source: [place] 12:08 PM [facility] [place] TYPE CODE TESTS RESULT OUT OF RANGE REFERENCE UNITS LAB L300.4150 11.7-14.9 SECONDS High PROTIME 31.4 LAB L300.4200 Normal INR 3.0 Performed By: #### L300.3900 #### [facility] [address] [place], [address] PROTHROMBIN TIME W/INR Collected: 08/13/2017 Status: F Source: [place] 12:39 PM [facility] [place] TYPE CODE TESTS RESULT OUT OF RANGE REFERENCE UNITS LAB L300.4150 11.7-14.9 SECONDS High PROTIME 31.3 LAB L300.4200 Normal INR 3.0 Performed By: #### L300.3900 #### [facility] [place], [address] SCREENING MAMM (CAD), Observed: 07/18/2017 Status: F Source: [place] 11:48 AM [facility] [place] [facility] Imaging Services [address] [place] [address] SCREENING MAMM (CAD), BILAT MR#: [id number] Acct: [id number] Name: SHANE CHAMBERS Rep #: [id number] : 1950 F 67 From: Efrain Klein MD PCP: Adelina Alvarenga DO Status: REG CLI Study: SCREENING MAMM (CAD), BILAT Date of Exam: 07/18/17 Exam# [id number] Ordering Dr: Adelina Alvarenga DO MAMMOGRAPHY - [...] delay biopsy of a clinically suspicious abnormality. [id number] Electronically Signed: Efrain Klein MD at 13:19 EST Tel [phone], Service support , CC: Adelina Alvarenga DO Insurance Marketing Specialist: Signed PROTHROMBIN TIME W/INR Collected: 06/30/2017 Status: F Source: [place] 10:37 AM [facility] [place] TYPE CODE TESTS RESULT OUT OF RANGE REFERENCE UNITS LAB L300.4150 11.7-14.9 SECONDS High PROTIME 29.2 LAB L300.4200 Normal INR 2.9 Performed By: #### L300.3900 #### [facility] [address] [place], [address] ALLERGIES ALLERGIES DATE TYPE / CODE NAME / CODE REACTION SEVERITY SOURCE 05/28/2018 Drug Iodinated Hives Unknown [place] Allergy/416 Contrast- Oral [facility] 727549([facility] ED CT) Dye/[id number](R Repository XNORM) 05/28/2018 Drug naproxen/[id number] Nausea Unknown [place] Allergy/416 380(RXNORM) [facility] 421472([facility] ED CT) Repository 05/28/2018 Drug levofloxacin/F00 ABDOMINAL PAIN Unknown [place] Allergy/386 9256766(RXNORM) [facility] 841303([facility] ED CT) Repository ENCOUNTERS ENCOUNTERS ADMIT/DISCHARGE ACCOUNT ADMITTING ENCOUNTER LOCATION SOURCE NUMBER CLASS 06/03/2018/ [id number] Ambulatory [place] 9 3 [facility] ing:SDCRoom: Repository AC18 06/01/2018 [id number] Ambulatory [place] 6 [facility] ing:LAB Repository 05/19/2018 [id number] Ambulatory [place] 7 [facility] ing:BFHLAB Repository 05/14/2018 [id number] Ambulatory [place] 1 [facility] ing:RAD Repository 03/13/2018/ [id number] Ambulatory BMSBuilding:B [place] 8 7 [facility] Repository 02/26/2018/ [id number] Ambulatory BMSBuilding:B [place] 8 3 [facility] Repository 02/04/2018 [id number] Ambulatory [place] 8 [facility] ing:BFHLAB Repository 01/10/2018 [id number] Ambulatory [place] 6 [facility] ing:LAB Repository 12/22/2017/ [id number] Ambulatory [place] 8 5 [facility] ing:LAB Repository 12/22/2017/ [id number] Ambulatory BMSBuilding:B [place] 8 7 [facility] Repository 12/17/2017 [id number] Ambulatory BMSBuilding:B [place] 8 [facility] Repository 11/21/2017 [id number] Ambulatory [place] 6 [facility] ing:RAD Repository 11/12/2017/ [id number] Ambulatory [place] 8 3 [facility] ing:LAB Repository 10/30/2017 [id number] Ambulatory [place] 0 [facility] ing:LAB.FUTUR Repository E 09/22/2017/ [id number] Ambulatory [place] 8 0 [facility] ing:LAB Repository 08/13/2017/ [id number] Ambulatory [place] 8 3 [facility] ing:LAB Repository 07/18/2017 [id number] Ambulatory [place] 2 [facility] ing:BI Repository 06/30/2017/ [id number] Ambulatory [place] 8 0 [facility] ing:LAB Repository PAYERS PAYERS ENCOUNTER GUARANTOR PAYER SUBSCRIBER SOURCE 06/03/2018 SHANE L Primary SHANE L [place] [id number] E Insurance:MEDICARE BEGB: [facility] PART A [facility] [id number] Number: Repository [id number]: [phone] [id number] [phone] () Date:2018-05-15 06/03/2018 Secondary SHANE L [place] Insurance:AETNA SR BEGLYDOB: Community SUPPLEMENT INSPolicy [id number] Hospital Number: Repository [id number] Date:0220-49-06OSAAD SENIOR SUPPLEMENT [id number] [place] [id number]: 06/03/2018 Tertiary NOT GIVENUNK [place] Insurance:SELF PAY [facility] Number: Effective Repository Date:2018-05-15 06/01/2018 SHANE L Primary SHANE L [place] [id number] Insurance:MEDICARE BEGLYDOB: Community [address] PART A [facility] [id number], [place] Number: Repository [id number]: [phone] [id number] [phone] (HP) Date:2018-06-01 06/01/2018 Secondary SHANE L [place] Insurance:AETNA SR BEGLYDOB: Community SUPPLEMENT [facility] [id number] Hospital Number: Repository [id number] Date:4685-31-21OGFMT SENIOR SUPPLEMENT INSPO [id number] [place] [phone]: 06/01/2018 Tertiary NOT GIVENUNK [place] Insurance:SELF PAY [facility] Hospital Number: Effective Repository Date:2018-06-01 05/19/2018 SHANE L Primary SHANE L [place] [id number] Insurance:MEDICARE BEGLYDOB: Community [address] PART A [facility] [id number], [place] Number: Repository [id number]: [phone] [id number] [phone] (HP) Date:2018-05-19 05/19/2018 Secondary SHANE L [place] Insurance:AETNA SR BEGLYDOB: Community SUPPLEMENT [facility] [id number] Hospital Number: Repository [id number] Date:6875-58-09HQXPP SENIOR SUPPLEMENT INSPO [id number] [place] [phone]: 05/19/2018 Tertiary NOT GIVENUNK [place] Insurance:SELF PAY [facility] Hospital Number: Effective Repository Date:2018-05-19 05/14/2018 SHANE L Primary SHANE L [place] [id number] Insurance:MEDICARE BEGLYDOB: Community [address] PART A [facility] [id number], [place] Number: Repository [address]Zts: 330 [id number] [phone] (HP) Date:2018-05-14 05/14/2018 Secondary SHANE L [place] Insurance:AETNA SR BEGLYDOB: Community SUPPLEMENT INSPolicy [id number] Hospital Number: Repository [id number] Date:2664-74-46DHFEU SENIOR SUPPLEMENT INSPO [address] [place] [phone]: 05/14/2018 Tertiary NOT GIVENUNK [place] Insurance:SELF PAY [facility] Number: Effective Repository Date:2018-05-14 03/13/2018 SHANE L Primary SHANE L [place] [id number] E Insurance:MEDICARE BEGLYDOB: Community [address] PART A [facility] [id number], [place] Number: Repository [id number]: 330 [id number] [phone] (HP) Date:2018-02-26 03/13/2018 Secondary SHANE L [place] Insurance:AETNA SR BEGLYDOB: Community [facility]MENT [facility] BENDolicy [id number] Hospital Number: Repository [id number] Date:0724-86-19KMQIT SENIOR SUPPLEMENT INSPO [address] [place] [phone]: 03/13/2018 Tertiary NOT GIVENUNK [place] Insurance:SELF PAY [facility] Hospital Number: Effective Repository Date:2018-03-13 02/26/2018 SHANE L Primary SHANE L [place] [id number] E Insurance:MEDICARE BEGLYDOB: Community KALEE RDAPPLE PART A [facility] [id number], [place] Number: Repository [id number]: 330 [id number] [phone] (HP) Date:2018-02-23 02/26/2018 Secondary SHANE L [place] Insurance:AETNA SR BEGLYDOB: Community SUPPLEMENT INSPolicy [id number] Hospital Number: Repository [id number] Date:3783-30-70CHBFL SENIOR SUPPLEMENT [address] [place] [address]YP: 02/26/2018 Tertiary NOT GIVENUNK [place] Insurance:SELF PAY [facility] Hospital Number: Effective Repository Date:2018-02-25 02/04/2018 SHANE L Primary SHANE L [place] [id number] E Insurance:MEDICARE BEGLYDOB: Community KALEE RDAPPLE PART A [facility] [id number] [place] Number[place] Repository [id number]: [phone] [id number] [phone] (HP) Date:2018-02-04 02/04/2018 Secondary SHANE L [place] Insurance:AETNA SR BEGLYDOB: Community SUPPLEMENT [facility] [id number] Hospital Number: Repository [id number] Date:7702-53-31NKGSY SENIOR SUPPLEMENT [address] [address]YDSBVIJCC, [place] [address]QU: 02/04/2018 Tertiary NOT GIVENUNK [place] Insurance:SELF PAY [facility] Hospital Number: Effective Repository Date:2018-02-04 01/10/2018 SHANE L Primary SHANE L [place] [id number] E Insurance:MEDICARE BEGLYDOB: Community KALEE RDAPPLE PART A [facility] [id number] Number[place] Repository [id number]: 330 [id number] [phone] (HP) Date:2017-07-04 01/10/2018 Secondary SHANE L [place] Insurance:AETNA SR BEGLYDOB: Community SUPPLEMENT [facility] [id number] Hospital Number: Repository [id number] Date:8113-48-81TXCFJ SENIOR SUPPLEMENT [address] [address]MOFTDEFJ, [place] [address]JG: 01/10/2018 Tertiary NOT GIVENUNK [place] Insurance:SELF PAY [facility] Hospital Number: Effective Repository Date:2018-01-01 12/22/2017 SHANE L Primary SHANE L [place] [id number] E Insurance:MEDICARE BEGLYDOB: Community KALEE RDAPPLE PART A [facility] [id number], [place] Number: Repository [id number]: 330 [id number] [phone] () Date:2017-07-04 12/22/2017 Secondary SHANE L [place] Insurance:AETNA SR BEGLYDOB: Community SUPPLEMENT [facility] [id number] Hospital Number: Repository [id number] Date:7676-98-33AYXFC SENIOR SUPPLEMENT [address] [place] [address]DS: 12/22/2017 Tertiary NOT GIVENUNK [place] Insurance:SELF PAY [facility] Hospital Number: Effective Repository Date:2017-11-28 12/22/2017 SHANE L Primary SHANE L [place] [id number] E Insurance:MEDICARE BEGLYDOB: Community KALEE RDAPPLE PART A [facility] [id number], [place] Number: Repository [id number]: 330 [id number] [phone] () Date:2017-06-20 12/22/2017 Secondary SHANE L [place] Insurance:AETNA SR BEGLYDOB: Community SUPPLEMENT [facility] [id number] Hospital Number: Repository [id number] Date:4070-51-96XVNJC SENIOR SUPPLEMENT [address] [place] [address]GO: 12/22/2017 Tertiary NOT GIVENUNK [place] Insurance:SELF PAY [facility] Hospital Number: Effective Repository Date:2017-12-22 12/17/2017 SHANE L Primary SHANE L [place] [id number] E Insurance:MEDICARE BEGLYDOB: Community KALEE RDAPPLE PART A [facility] [id number], [place] Number: Repository [id number]: 330 [id number] [phone] (HP) Date:2017-12-17 12/17/2017 Secondary SHANE L [place] Insurance:AETNA SR BEGLYDOB: Community SUPPLEMENT [facility] [id number] Hospital Number: Repository [id number] Date:9893-65-00DAMOH SENIOR SUPPLEMENT [address] [address]YNOUXVVSS, [place] [address]UP: 12/17/2017 Tertiary NOT GIVENUNK [place] Insurance:SELF PAY [facility] Hospital Number: Effective Repository Date:2017-12-17 11/21/2017 SHANE L Primary SHANE L [place] [id number] E Insurance:MEDICARE BEGLYDOB: Community KALEE RDAPPLE PART A [facility] [id number]. [facility] Number[place] Repository [id number]: 330 [id number] [phone] (HP) Date:2017-11-21 11/21/2017 Secondary SHANE L [place] Insurance:AETNA SR BEGLYDOB: Community SUPPLEMENT [facility] [id number] Hospital Number: Repository [id number] Date:4783-93-88HKVGJ SENIOR SUPPLEMENT [address] [address]NZHIMGPHV, [place] [address]DM: 11/21/2017 Tertiary NOT GIVENUNK [place] Insurance:SELF PAY [facility] Hospital Number: Effective Repository Date:2017-11-21 11/12/2017 SHANE L Primary SHANE L [place] [id number] E Insurance:MEDICARE BEGLYDOB: Community KALEE RDAPPLE PART A [facility] [id number], [place] Number: Repository [id number]: 330 [id number] [phone] (HP) Date:2017-07-04 11/12/2017 Secondary SHANE L [place] Insurance:AETNA SR BEGLYDOB: Community SUPPLEMENT [facility] [id number] Hospital Number: Repository [id number] Date:1239-03-16KGPQI SENIOR SUPPLEMENT [address] [place] [address]IX: 11/12/2017 Tertiary NOT GIVENUNK [place] Insurance:SELF PAY [facility] Hospital Number: Effective Repository Date:2017-09-30 10/30/2017 SHANE L Primary SHANE L [place] [id number] E Insurance:MEDICARE BEGLYDOB: Community KALEE RDAPPLE PART A [facility] [id number]. [facility] Number[place] Repository [id number]: 330 [id number] [phone] (HP) Date:2017-10-30 10/30/2017 Secondary SHANE L [place] Insurance:AETNA SR BEGLYDOB: Community SUPPLEMENT [facility] [id number] Hospital Number: Repository [id number] Date:7801-89-38VRHSY SENIOR SUPPLEMENT [address] [place] [address]SU: 10/30/2017 Tertiary NOT GIVENUNK [place] Insurance:SELF PAY [facility] Hospital Number: Effective Repository Date:2017-10-30 09/22/2017 SHANE L Primary SHANE L [place] [id number] E Insurance:MEDICARE BEGLYDOB: Community KALEE RDAPPLE PART A [facility] [id number] [place] Number: Repository [id number]: 330 [id number] [phone] () Date:2017-07-04 09/22/2017 Secondary SHANE L [place] Insurance:AETNA SR BEGLYDOB: Community SUPPLEMENT [facility] [id number] Hospital Number: Repository [id number] Date:8928-79-28WGYSG SENIOR SUPPLEMENT [address] [place] [address]IL: 09/22/2017 Tertiary NOT GIVENUNK [place] Insurance:SELF PAY [facility] Hospital Number: Effective Repository Date:2017-09-01 08/13/2017 SHANE L Primary SHANE L [place] [id number] E Insurance:MEDICARE BEGLYDOB: Community KALEE RDAPPLE PART A [facility] [id number]. [facility] Number[place] Repository [id number]: 330 [id number] [phone] (HP) Date:2017-07-04 08/13/2017 Secondary SHANE L [place] Insurance:AETNA SR BEGLYDOB: Community SUPPLEMENT [facility] [id number] Hospital Number: Repository [id number] Date:3371-33-17NOWZE SENIOR SUPPLEMENT [address] [address]ZHNPLJNAF, [place] [address]EP: 08/13/2017 Tertiary NOT GIVENUNK [place] Insurance:SELF PAY [facility] Hospital Number: Effective Repository Date:2017-07-04 07/18/2017 SHANE L Primary SHANE L [place] [id number] E Insurance:MEDICARE BEGLYDOB: Community KALEE RDAPPLE PART A [facility] [id number]. [facility] Number[place] Repository [id number]: 330 [id number] [phone] (HP) Date:2017-06-23 07/18/2017 Secondary SHANE L [place] Insurance:AETNA SR BEGLYDOB: Community SUPPLEMENT [facility] [id number] Hospital Number: Repository [id number] Date:1784-30-60LJCLI SENIOR SUPPLEMENT [address] [address]SNDOISMAK, [place] [address]DO: 07/18/2017 Tertiary NOT GIVENUNK [place] Insurance:SELF PAY [facility] Hospital Number: Effective Repository Date:2017-06-23 06/30/2017 SHANE L Primary SHANE L [place] [id number] E Insurance:MEDICARE BEGLYDOB: Community KALEE RDAPPLE PART A [facility] [id number]. Mary's Medical [facility], [place] Number: Repository [id number]: 330 [id number] [phone] (HP) Date:2017-04-12 06/30/2017 Secondary SHANE L [place] Insurance:AETNA SR BEGLYDOB: Community SUPPLEMENT [facility] [id number] Hospital Number: Repository [id number] Date:6384-27-26IPDOH SENIOR SUPPLEMENT [address] [address]XLYRMAETL, [place] [address]NR: 06/30/2017 Tertiary NOT GIVENUNK [place] Insurance:SELF PAY [facility] Hospital Number: Effective Repository Date:2017-06-02
== END ==
PROVIDERS: Family Provider Family Medicine; PCP Family Medicine; Visit Provider Family Medicine
DX: Z01.818 Encounter for other preprocedural examination (principal)
CPT/HCPCS: 36415; 85025

== ENCOUNTER → 2018-06-01 06:01 | Outpatient (CLI) | payer MEDICARE, OTHER, SELFPAY ==
[2018-06-01 08:03] LABS: AST(SGOT) 19 U/L (15-37); Alanine Aminotransfer ALT/SGPT 25 U/L (13-56); Albumin, Serum 3.4 g/dL (3.2-5.0); Alkaline Phosphatase 96 U/L (45-117); Bilirubin, Direct 0.18 mg/dL (0.00-0.30); Cholesterol 135 mg/dL (200); Globulin 2.7 g/dL (2.2-4.2); High Density Lipoprotein 59 mg/dL; Protein, Total 6.1 g/dL (6.4-8.2); Triglycerides 114 mg/dL; Very Low Density Lipoprotein 23 mg/dL (5-40)
== END ==
PROVIDERS: Family Provider Family Medicine; PCP Family Medicine; Referring Provider Nurse Practitioner Family; Visit Provider Nurse Practitioner Family
DX: E78.5 Hyperlipidemia, unspecified (principal)
CPT/HCPCS: 36415; 80061; 80076

== ENCOUNTER 2018-06-03 07:55 | Day surgery (SDC) | payer MEDICARE, OTHER, SELFPAY ==
--- NOTE | 2018-05-23 | PCM.HP.BLA ---
History and Physical DATE OF SURGERY: 06/03/2018 SCHEDULED PROCEDURE: right thumb carpometacarpal arthroplasty HISTORY OF PRESENT ILLNESS: This is a 68-year-old female who has had bilateral hand pain for over 1 year duration. Patient states her right is worse than the left. Patient is right-hand dominant. Pain can reach as high as a 10/10 with activity. On average her pain as a 4/10. Patient states her pain does wake her at night. The pain is at the base of her right thumb and radiates into the forearm. She does complain of some occasional numbness in the left hand that improved with bracing. Patient has tried previous conservative measures consisting of heat, ice, elevation with no relief on the right. Patient denies any trauma or injury. Patient has a medical history pertinent for factor V Leiden, hypertension, clots in the right lower extremity. Patient has been on chronic anticoagulation currently on warfarin. Patient currently denies any chest pain, shortness of breath, fevers chills, recent infections. Patient has obtain surgical clearance from her primary care physician. She also has history of heart catheterization in 2007. She is followed by Dr. Laureano her rehabilitation coordinator. After failing conservative measures and discussing treatment options with Dr. Cornelius Dyer, the patient would like to proceed with a right carpometacarpal thumb arthroplasty. REVIEW OF SYSTEMS: ROS: Const: Reports fatigue, but denies anorexia, anxiety, change in appetite, fever and weight change,hard of hearing, and vision problems. CV: Reports heart murmur, but denies chest pain, irregular heartbeat and peripheral vascular disease. Resp: Denies asthma, cough, pneumonia, sleep apnea, SOB, tuberculosis and wheezing. GI: Reports heartburn, but denies constipation, diarrhea, nausea, bloody stools and vomiting, and difficulty swallowing. : Urinary: denies incontinence. Musculo: Denies leg swelling, trouble walking and weakness and limp. Skin: Denies Raynaud's, history of shingles and tattoo. Neuro: Denies ambulatory dysfunction, dizziness, numbness/tingling and tremor. Psych: Reports sleep pattern disturbance, but denies anxiety, depression, insomnia, mental illness and stress. Jamaal/Lymph: Reports bleeding/bruising tendency, but denies anemia and past transfusion. Reviewed and updated. PAST MEDICAL HISTORY: Advance Care Plan: No Advance Directives Effective Date: 07/05/2016 PMH: Medical Problems: Arthritis, Stroke, Thyroid Disease, Factor 5 Liden Accidents: Tailbone FX Surgical Hx: Hand Surgery - 2002 Colonoscopy - 2004 Endoscopy - 2004 Heart Cath - 2007 Thriod Removed - 2009 Gallbladder Colonoscopy - (2017) Anesthesia Complications: None Assistive Devices: Glasses Reviewed and updated. 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 Personal Habits: Cigarette Use: Never.Alcohol: Denies use.Drug Use: Denies Use.Enjoy Exercising: Exercises 1-3 X/Week. Reviewed, no changes. VITALS: Ht: 58 Wt: 138lb Wt k.597 BMI: 28.8 BP: 114/71 Pulse: 56 Resp: 20 T: 97.7 T: 36.5C ALLERGIES: Naprosyn - upset stomach Contrast Dye Levofloxacin MEDICATIONS: Multivitamins 1 po qday, Omeprazole 20 mg 1 cap PO bid, Atenolol 25 mg 1 tab PO qam and 1/2 tab qhs, Simvastatin 40 mg 1 PO qhs, Levothyroxine Sodium 75mcg 1 tab PO except 1/2 tab on sundays, Tizanidine HCL 4 mg 1 PO qhs, Vitamin D-3 2000 Unit 1 PO weekly, [place] 5-325 mg 1-2 by mouth every 6 hour as needed pain, Warfarin Sodium 3 mg 1 tab PO 4 times A week, Warfarin Sodium 2 mg 1 tab PO 3 times A week PRE-OP EXAM: General appearance:NORMAL Other: Eyes: Conjunctivae and lids: NORMAL Pupils: ERR Ears, Nose, Mouth, and Throat: NORMAL Other: Inspection of lips, teeth and gums: NORMAL Other: Neck: Examination of neck: no masses noted. Respiratory: Assessment of respiratory effort: NORMAL Other: Auscultation of lungs: clear to auscultation no wheezes, rhonchi or rales. Cardiovascular: Auscultation of heart: regular rate and rhythm, positive murmur, no gallops or rubs. Exam of carotid arteries: NORMAL Other: Gastrointestinal: Exam of abdomen: soft, nontender, nondistended bowel sounds present. PHYSICAL EXAMINATION: On exam right hand/wrist is cool to touch without erythema. There is tenderness to palpation at the base of the right thumb at the carpometacarpal joint bilaterally. Swelling appreciated at the first carpal metacarpal joint bilaterally. Patient does have a positive grind test bilaterally. Sensation intact to light touch. Motor intact to AIN, PIN, and ulnar nerve. IMAGING STUDIES: First carpometacarpal osteoarthritis with STT osteoarthritis of the wrist. This is consistent with joint space narrowing, subchondral sclerosis, subchondral cyst formation and subluxation of the joint. IMPRESSION: 1. Severe right thumb carpometacarpal osteoarthritis 2. Severe left thumb carpometacarpal joint osteoarthritis 3. History of heart catheterization 2008 4. Hypertension 5. Factor V Leiden 6. Hyperlipidemia 7. Hypothyroidism 8. History of previous deep vein thrombosis right leg 9. Chronic anticoagulation: Currently on warfarin. PLAN: Dr. Cornelius Dyer did discuss and review with the patient all treatment options including surgical versus nonsurgical options. Patient does wish to proceed with the above-stated procedure. Potential risks, benefits, and complications of the procedure were discussed in detail including but not limited to , infection, nerve and blood vessel damage, persistent pain, numbness, tingling, paresthesias, blood clot, pulmonary embolism, and requirement for possible further surgery. The patient expressed full understanding and has no further questions for the doctor. Patient does agree to proceed with the above-stated procedure and has signed the surgery consent form. We will obtain surgical clearance from patient's primary care physician. We're also getting clearance from patient's rehabilitation coordinator. Patient will stop the Coumadin 5 days prior to surgery and restart after surgery. This is per her primary care physician. This dictation was created using voice recognition software. Phonetic and/or grammatical errors may exist.. ___ I have re-examined the patient. There are no clinical changes since date of exam. ___ See progress notes for changes. ___ Dictated on admission Date: Time: Signature:
[2018-06-03] VITALS (7 sets, daily range): BP systolic 112–137; BP diastolic 73–83; PULSE 58–88; RESP 16–18; TEMP 36.1–36.5; O2SAT 93–100; BMI 27.8
--- NOTE | 2018-06-03 07:15 | PCM.OPRPT ---
Report of Operation Date of Procedure: 06/03/18 Pre-Operative Diagnosis: Right first CMC Osteoarthritis Post-Operative Diagnosis: Right first CMC osteoarthritis Surgery/Procedure Performed:: Right first CMC arthroplasty. Right FCR tendon transfer Description of Surgical Findings:: Stable tendon transfer rubber engraver: Chapis Martino Type of Anesthesia:: General Anesthesiologist: Jus Heck Special Medications: 2 g of Ancef Specimen's removed: Trapezium Estimated Blood Loss (mL): 5 Fluids Replaced: 1000 mL crystalloid Description of Procedure: Operative indications: 68-year-old f failed conservative measures for first CMC osteoarthritis. X-rays show joint space narrowing, subluxation of the joint and osteophyte formation as well as subchondral sclerosis. We discussed surgical intervention including first CMC arthroplasty with tendon transfer. Risks and benefits discussed included but were not limited to blood loss, DVTs, PEs, neurovascular damage, infection, general risk of anesthesia, hematoma and weakness. Patient demonstrated understanding was able to sign informed consent. Procedure: On the date of the procedure the patient's R hand was marked in the preoperative area. Patient was taken back to the operating room where they were transferred to the table in the supine position. Anesthesia assumed control the C-spine airway and remained in control throughout the remainder of the procedure. All bony prominences were identified and well-padded tourniquet was placed on the R upper extremity. The operative extremity was prepped in a sterile fashion. Surgeon then scrubbed Upon reentering the room, the right upper extremity was draped in a standard orthopedic fashion. Incision was marked out. Timeout was called everyone agreed upon the side, the site, the procedure to be performed, patient identity and antibiotics given. Esmarch bandage was used to exsanguinate the extremity. Tourniquet was placed up to 250 mmHg. Incision was taken down through skin. Blunt dissection was taken through subcutaneous tissues. Superficial nerve was identified and retracted out of the way. Radial artery was identified and retracted out of the way. Once we are able to identify the joint arthrotomy was made and the trapezium was identified. Once the trapezium was identified dorsal and volar aspects were debrided of connective tissue. Saw was then used to make a cruciform cut in an osteotomy was completed with the osteotome. Once this was done a rondure was used to remove the bone fragments and the trapezium in its entirety. Attention was then directed towards the FCR to harvest. FCR was identified in the wrist and FiberWire suture was placed around it passed up into the forearm. We then made a small incision in the form and brought the FiberWire through. Transection of the FCR was done in the forearm. The FCR tendon was then fed down to the wrist and into the joint in the previous incision. Vicryl suture was then used to tag the end of the graft for transfer. Attention was then directed towards the proximal end of the first metacarpal. A bur was used to make a bone tunnel for tendon transfer. Loop suture was then passed through the upper holes and used to pull the graft through the bone tunnel. Once this was done a sling was made and 3-0 Ethibond suture was used to tie the tendon on itself. Once the tendon was appropriately secured anchovy was made with the remainder of the tendon. This was sewn down into the joint using 3-0 Ethibond. Copious amounts of irrigation were used throughout the procedure and prior to closure of the wound. Arthrotomy was closed with 2-0 Vicryl skin was closed with 2-0 Vicryl and 4-0 Monocryl with Steri-Strips. Xeroform dressing was placed. Sterile dressing was placed. Compressive dressing was placed. Tourniquet was let down. Well-padded splint was then placed with the thumb in abduction. Patient was then awakened by anesthesia and transferred to the PACU for recovery. Postoperative plan: Patient will remain in the splint for 2 weeks. 2 weeks we will check the incision and remove any sutures or tails. He will be transferred to a cast and abduction at that time. They will then follow standard postoperative protocol for first CMC arthroplasty with Occupational Therapy. - Complications None - Admit VTE Documentation VTE Present on Admission: No VTE Mechan Device Prophylaxis: SCD's VTE Pharm Prophylaxis ordered?: No Reason prophylaxis not ordered:: Treatment Not Indicated
[2018-06-03 08:21] LABS: Prothrombin Time Fingerstick 11.8 SEC (11.9-14.4)
[2018-06-03] MEDS: Cefazolin 2 GM in 0.9% Normal Saline 100 ML IV (10:08)
[2018-06-03] MEDS: Ketorolac 30 MG/ML Syringe IV (12:05)
== END 2018-06-03 13:20 | disposition home or self-care (01) ==
LOC: SDC 07:56 → AC 07:58
PROVIDERS: Family Provider Family Medicine; PCP Family Medicine; Referring Provider Specialist; Visit Provider Specialist
PROC: (CPT 25447; principal; 2018-06-03 10:00)
DX: M18.9 Osteoarthritis of first carpometacarpal joint, unspecified (principal); I10 Essential (primary) hypertension; E78.5 Hyperlipidemia, unspecified; E03.9 Hypothyroidism, unspecified; D68.51 Activated protein C resistance; Z79.01 Long term (current) use of anticoagulants; Z86.718 Personal history of other venous thrombosis and embolism; G89.29 Other chronic pain; M54.9 Dorsalgia, unspecified; Z85.850 Personal history of malignant neoplasm of thyroid
CPT/HCPCS: 01810; 25447; 26483 ×2; 36416; 85610; J7120; J2405

== ENCOUNTER → 2018-07-08 07:51 | Outpatient (CLI) | payer MEDICARE, OTHER, SELFPAY ==
[2018-06-30 13:34] VITALS: BMI 28.0
--- NOTE | 2018-07-08 07:54 | ECHOD_ITS ---
Reason For Study: BICUSPID AORTIC VALVE Procedure This was a 2D Doppler, Color Flow transthoracic echocardiogram. Exam performed in department. Left Ventricle Normal size and thickness. The estimated ejection fraction is 65 %. Normal diastology for age. No regional wall motion abnormalities noted. Right Ventricle Normal RV size. Normal size and thickness. Normal systolic function. Atria Normal left atrium. Normal right atrium. Normal atrial septum. Mitral Valve The mitral valve is structurally normal. No prolapse or stenosis seen. Tricuspid Valve Normal tricuspid valve. Trivial tricuspid valve insufficiency. Right ventricular systolic pressure estimated to be 38 mmHg. Aortic Valve Bicuspid aortic valve. There is no aortic stenosis. Pulmonic Valve Normal pulmonic valve. Great Vessels Normal aortic root. Normal arch. Normal inferior vena cava. Inferior vena cava collapse with sniff. Pericardium/Pleural No pericardial effusion. MMode/2D Measurements & Calculations LVIDd: 4.9 cm IVSd: 0.85 cm Ao root diam: 3.2 cm LVIDs: 3.0 cm LVPWd: 0.72 cm RVDd: 3.1 cm FS: 37.8 % LAV(MOD-bp): 32.1 ml LVAd ap4: 23.6 cm2 SV(MOD-sp4): 41.9 ml LAV(MOD-bp) Indexed: 20.7 ml/m2 EDV(MOD-sp4): 69.1 ml LAV(MOD-sp2): 32.2 ml EDV(sp4-el): 72.6 ml LAV(MOD-sp4): 31.4 ml LVAs ap4: 13.5 cm2 ESV(MOD-sp4): 27.1 ml ESV(sp4-el): 27.5 ml EF(MOD-sp4): 60.7 % EF(sp4-el): 62.1 % SV(sp4-el): 45.1 ml Aortic Valve Planimetry: 2.5 cm2 LA A4 area: 13.1 cm2 LA dimension(2D): 3.7 cm RA A4 area: 12.7 cm2 Time Measurements MV dec time: 0.20 sec Doppler Measurements & Calculations MV E max jt: 76.7 cm/sec Lat Peak E' Jt: 9.7 cm/sec Med Peak E' Jt: 6.5 cm/sec MV A max jt: 82.1 cm/sec E/E' lat: 7.9 E/E' med: 11.9 MV E/A: 0.93 Ao V2 max: 142.1 cm/sec LV V1 max: 80.5 cm/sec PA V2 max: 72.2 cm/sec Ao max P.1 mmHg LV V1 max P.6 mmHg TR max jt: 285.8 cm/sec TR max P.7 mmHg Interpretation Summary The estimated ejection fraction is 65 %. Normal diastology for age. Trivial tricuspid valve insufficiency. Right ventricular systolic pressure estimated to be 38 mmHg. Bicuspid aortic valve. Compared to echo report dated 12/10/2016, no appreciable changes noted. Ordering Physician: Jacinto Laureano Referring Physician: ANU JONES Performed By: Lucy Ryan RDCS
== END ==
PROVIDERS: Family Provider Family Medicine; PCP Family Medicine; Referring Provider Internal Medicine Cardiovascular Disease; Visit Provider Internal Medicine Cardiovascular Disease
DX: I25.10 Atherosclerotic heart disease of native coronary artery without angina pectoris (principal); Q23.1 Congenital insufficiency of aortic valve
CPT/HCPCS: 93306; 97166; 97530; 97760

== ENCOUNTER → 2018-08-10 10:13 | Outpatient (CLI) | payer MEDICARE, OTHER, SELFPAY ==
[2018-06-30 13:34] VITALS: BMI 28.0
--- NOTE | 2018-08-10 10:15 | BI_ITS ---
MAMMOGRAPHY - BILATERAL SCREENING REASON FOR EXAM: Female, 68 years old. Routine annual screening examination. PERTINENT HISTORY: Aunt with breast cancer. Remote right excisional breast biopsy. TECHNIQUE: Digital bilateral breast brayan (3D mammographic acquisition) in the CC and MLO projections. 2-D mediolateral oblique (MLO) and craniocaudad (CC) views of both breasts were obtained. CAD: Full Field Digital Mammography with Computer Added Detection was performed. COMPARISON: Comparison is made with prior study dated July 18, 2017 and July 04, 2016. FINDINGS: Breast Composition: There are scattered areas of fibroglandular density. There are no dominant masses or suspicious calcifications. Stable small bilateral axillary lymph nodes. No other significant abnormalities are identified. There has been no significant change since the prior study. BI/SCREEN MAMM (CAD) W/BRAYAN BILAT IMPRESSION: Stable bilateral screening mammogram. Yearly follow-up mammogram recommended. (A) ASSESSMENT CATEGORY: BIRADS Category 2: Benign. A letter regarding these results will be sent to the patient by the facility within 30 days. Approximately 10% of breast cancers are not detected by mammography. A normal mammogram should not delay biopsy of a clinically suspicious abnormality. [id number] Electronically Signed: Efrain Klein, at 9:36 EDT , Service support ,
== END ==
PROVIDERS: Family Provider Family Medicine; PCP Family Medicine; Referring Provider Family Medicine; Visit Provider Family Medicine
DX: Z12.31 Encounter for screening mammogram for malignant neoplasm of breast (principal)
CPT/HCPCS: 77063; 77067

== ENCOUNTER 2018-08-12 13:30 | Outpatient (RCR) | payer MEDICARE, OTHER, SELFPAY ==
[2018-06-03 08:23] VITALS: BMI 27.8
[2018-06-30 13:34] VITALS: BMI 28.0
--- NOTE | 2018-07-07 07:59 | HP.OTEVAL ---
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 Date of Evaluation: 07/06/18 Occupational Therapist: Martina Luu, MANUEL/Sacha, CHT - Subjective Subjective: This 68 year old female was seen for inital OT eval following a right CMC arthroplasty sx was on 2018. pt did see ortho for injections to decrease pain and swelling, but was not sucessful. pt is happy she had her sx and is hopeful she will return to her daily occupations without pain. - ADLs Dressing: Bra, Button shirt, Pants, Socks, Shoes Fasteners: Tie shoes, Buttons, Zippers, Snaps, [place] Comments: using slip on shoes Eating: Use silverware, Cut food, Butter bread Bathing: Handle washcloth & soap, Wash hair, Squeeze shampoo bottle Toileting: Manage clothing, Perineal care Grooming: Squeeze toothpaste on, [place] teeth Kitchen: Peel fruits & vegetables, Open jars, Open bottle caps, Lift gallon of milk, Pour from pitcher Comments: is helping with meals at this time - Pain right hand 3 Pain Intensity Range: 4, 8 - ROM Wrist: right 40/30 left 60/45 CMC: right 10 left 10 MP: right 30 left 55 IP: right 25 left 65 - Strength Armament Installer: right NT left 30# Lateral Pinch: right NT left 10# Tripod Pinch: right NT left 12# - Hand/Wrist Evaluation Total Score of Pain & Functional Sections: 81 - Goals Goal:100% adherence to protocol: Yes Comment: CMC arthroplasty Goal:Daily scar massage when approriate: Yes Goal:ROM equal to unaffected hand: Yes Goal:Armament Installer/Pinch strength at least 75% of unaffected hand: Yes Goal:No pain with affected hand use: Yes Goal:Full use of affected hand in daily activities including: Yes Goal:Decrease scar hypersensitivity: Yes - Rehabilitation General Assessment: Pt currently S/P 4 weeks 2 days CMC arthroplasty, pt arrives in need of custom orthosis to provide protection and support to thumb while healing. Pt demo with limited ROM of thumb and wrist, risk of scar adhesions, and limited strength limiting functional use of right hand for ADLs and IADLs. Pt would benefit from skilled OT services 1-2x week for 6 weeks to return pt to OF. This visit pt was fabricated palm based thumb spica, ed on orthosis use and precautions, pt ed. on edema control, thumb and wrist AROM. pt demo understanding of ex and orthosis use, pt agreeable to POC. Rehabilitation Potential: Excellent - Anticipated Interventions Anticipated Interventions: A/AAROM/PROM, Edema Control, Triggerpoint Release, Desensitization, Sensory Retraining, Modalities, Orthoses, Joint Protection/Energy Conservation, Ergonomic Education - Visit Plan Frequency: 2x /Week Duration: 6 Weeks TEXT: Thank you for the opportunity to evaluate your patient. For Medicare and Medicare HMO plans, please review the plan of care and approve it. It will need to be FAXED BACK to us at [phone] for Medicare purposes. Please let me know if there are questions or concerns regarding this plan of care. Physician Signature: Date:
--- NOTE | 2018-08-12 13:44 | HP.OTDCSUM ---
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 Please see the following information for a summary of their discharge status. - Overall Improvement % Improvement: 80 - Objective Objective/Function: MCP 40. IP 60. CMC 10. 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 - Goals Patient Goals: Regain Mobility, Regain Strength, Decrease Pain, Improve Fine Motor Skills, Use Hand/Wrist/Arm Normally Again, Be More Independent in ADLS Goal:100% adherence to protocol: Yes Goal:Daily scar massage when approriate: Yes Goal:ROM equal to unaffected hand: Yes Goal:Men'S Swim Coach/Pinch strength at least 75% of unaffected hand: Yes Goal:No pain with affected hand use: Yes Goal:Full use of affected hand in daily activities including: Yes Goal:Decrease scar hypersensitivity: Yes - Plan Plan: D/C - D/C Information Discharge Comments: pt was seen 10 visits in OT following a right CMC arthroplasty. pt has made great progress and reports she is ind. with all daily occupations. Pt has met OT functional goals and is D/C at this time. If there are questions or concerns regarding this patient's occupational therapy, please fell free to call me at [phone]. Thank you for the referral of this patient. Sincerely, Martina Luu, OTR/L, CHT
== END 2018-08-12 19:00 | disposition home or self-care (01) ==
LOC: OT 13:30
PROVIDERS: Family Provider Family Medicine; PCP Family Medicine; Referring Provider Physician Assistant Surgical; Visit Provider Physician Assistant Surgical
DX: M16.11 Unilateral primary osteoarthritis, right hip (principal)
CPT/HCPCS: 97035; 97110; 97140; 97166; 97168; 97530; 97760

== ENCOUNTER → 2018-11-05 | Outpatient (CLI) | payer MEDICARE, OTHER, SELFPAY ==
[2018-06-30 13:34] VITALS: BMI 28.0
[2018-11-05 07:09] LABS: Absolute Lymphocyte Count 1.53 X10^3/ul (0.83-4.51); Absolute Neutrophil Count 2.3 X10^3/uL (2.0-7.7); Basophil# 0.03 X10^3/uL; Basophil% 0.7 % (0-1); Eosinophil# 0.06 X10^3/uL; Eosinophils% 1.4 % (0-5); Hematocrit 42.5 % (37-47); Lymphocyte # 1.53 X10^3/ul (4.0); Lymphocyte % 35.1 % (19-41); Mean Corp Hgb Conc 32.9 g/gl (32-36); Mean Corpuscular Hgb 31.7 pg (27.0-32.0); Mean Corpuscular Volume 96.4 fL (81-99); Mean Platelet Vol. 10.1 fl (6.2-12.0); Monocyte# 0.41 X10^3/uL; Monocyte% 9.4 % (0-10); Neutrophil # 2.32 X10^3/uL (2.7-7.7); Neutrophil % 53.2 % (47-70); Platelet Count 214 K/mm3 (150-450); RBC Distribution Width CV 13.7 % (11.6-14.6); RBC Distribution Width SD 48.2 fl (35.1-43.9); Red Blood Count 4.41 M/mm3 (4.2-5.4); White Blood Count 4.4 K/mm3 (4.4-11.0)
[2018-11-05 07:15] LABS: POSITIVE COUNT NO; POSITIVE DIFFERENTIAL NO; POSITIVE MORPHOLOGY NO
[2018-11-05 07:36] LABS: ALB/GLOB Ratio 1.1 RATIO (0.9-2.4); AST(SGOT) 19 U/L (15-37); Alanine Aminotransfer ALT/SGPT 28 U/L (13-56); Albumin, Serum 3.4 g/dL (3.2-5.0); Alkaline Phosphatase 106 U/L (45-117); Anion Gap 9 (5-15); BUN 10 mg/dL (7-18); BUN/Creat Ratio 11.4 RATIO (10-20); Bilirubin, Direct 0.13 mg/dL (0.00-0.30); Calcium,Total 8.4 mg/dL (8.5-10.1); Chloride 111 mmol/L (98-107); Cholesterol 151 mg/dL (200); Creatinine, Serum 0.88 mg/dL (0.55-1.02); EST Glomerular Filtration Rate 68 mL/min (>60); Est Glom Filt Rate - Afr Amer 83 mL/min (>60); Free T3 2.1 pg/mL (2.18-3.98); Globulin 3.2 g/dL (2.2-4.2); Glucose 89 mg/dL (74-106); High Density Lipoprotein 64 mg/dL; Protein, Total 6.6 g/dL (6.4-8.2); Sodium Level 145 mmol/L (136-145); T4 Free Direct 1.11 ng/dL (0.76-1.46); Thyroid Stim Hormone (TSH) 1.02 uIU/mL (0.358-3.74); Triglycerides 111 mg/dL; Very Low Density Lipoprotein 22 mg/dL (5-40)
== END | disposition home or self-care (01) ==
LOC: LAB.FUTURE 06:11
PROVIDERS: Nurse Practitioner Family; Family Provider Family Medicine; PCP Family Medicine; Referring Provider Family Medicine; Visit Provider Family Medicine
DX: E78.5 Hyperlipidemia, unspecified (principal); E03.9 Hypothyroidism, unspecified; I10 Essential (primary) hypertension; E78.00 Pure hypercholesterolemia, unspecified
CPT/HCPCS: 36415; 80053; 80061; 82248; 84439; 84443; 84481; 85025

== ENCOUNTER 2019-02-08 12:12 | Outpatient (RCR) | payer MEDICARE, OTHER, SELFPAY ==
[2018-06-30 13:34] VITALS: BMI 28.0
[2019-02-08 12:57] LABS: International Normalized Ratio 2.6; Prothrombin Time (Protime)PT. 27.7 SECONDS (11.7-14.9)
[2019-02-08 13:20] LABS: Free T3 2.5 pg/mL (2.18-3.98); T4 Free Direct 1.29 ng/dL (0.76-1.46); Thyroid Stim Hormone (TSH) 0.44 uIU/mL (0.358-3.74)
== END 2019-02-08 13:00 | disposition home or self-care (01) ==
LOC: LAB 12:12
PROVIDERS: Family Provider Family Medicine; PCP Family Medicine; Referring Provider Family Medicine; Visit Provider Family Medicine
DX: E03.9 Hypothyroidism, unspecified (principal); D68.2 Hereditary deficiency of other clotting factors
CPT/HCPCS: 36415; 84439; 84443; 84481; 85610

== ENCOUNTER 2019-03-10 07:42 | Day surgery (SDC) | payer MEDICARE, OTHER, SELFPAY ==
[2019-02-08 12:57] VITALS: BMI 27.3
--- NOTE | 2019-02-19 15:33 | PCM.HP.BLA ---
History and Physical Patient Name: Anusha Vidal : 1950 From: KIM ZEPEDA PA-C DATE OF SURGERY: 03/10/2019 SCHEDULED PROCEDURE: left thumb carpometacarpal arthroplasty and left carpal tunnel release HISTORY OF PRESENT ILLNESS: Preoperative history and physical exam was performed on February 18, 2019. This is a 68-year-old female who is a patient of Dr. Cornelius Dyer. Patient had a previous right thumb carpometacarpal joint arthroplasty in June 2018. Patient is doing well from that procedure. She is now complaining of continued pain in her left thumb at the CMC joint. She is right-hand dominant. She is also complaining of numbness and tingling into the left median nerve distribution. Patient has had a previous EMG nerve conduction study examine 2010 which did reveal left carpal tunnel syndrome. Patient states the numbness does keep her awake at night. It is worse at nighttime. She does have increased pain with activities of daily living including getting dressed and driving. Patient has tried bracing for the left thumb and wrist with no relief in symptoms. She has tried oral medications consisting of Tylenol. Patient is unable to take nonsteroidal anti-inflammatories due to her Coumadin. She denies any recent trauma to the left thumb. Patient does have a medical history pertinent for previous stroke, factor V Leiden, previous heart catheterization. We did receive previous clearance from the precision lens grinder apprentice for her right thumb surgery. We are contacting patient's primary care physician for clearance and stopping the Coumadin 5 days prior to surgery for the left. Patient currently denies any recent S pain, shortness of breath, fevers chills, or recent infections. After discussion with the patient, the patient would like to proceed with a left thumb CMC joint arthroplasty and left carpal tunnel release. REVIEW OF SYSTEMS: ROS: Const: Reports fatigue, but denies anorexia, anxiety, change in appetite, fever and weight change,hard of hearing, and vision problems. CV: Reports heart murmur, but denies chest pain, irregular heartbeat and peripheral vascular disease. Resp: Denies asthma, cough, pneumonia, sleep apnea, SOB, tuberculosis and wheezing. GI: Reports heartburn, but denies constipation, diarrhea, nausea, bloody stools and vomiting, and difficulty swallowing. : Urinary: denies incontinence. Musculo: Denies leg swelling, trouble walking and weakness and limp. Skin: Denies Raynaud's, history of shingles and tattoo. Neuro: Denies ambulatory dysfunction, dizziness, numbness/tingling and tremor. Psych: Reports sleep pattern disturbance, but denies anxiety, depression, insomnia, mental illness and stress. Jamaal/Lymph: Reports bleeding/bruising tendency, but denies anemia and past transfusion. Reviewed, no changes. PAST MEDICAL HISTORY: Advance Care Plan: No Advance Directives Effective Date: 07/05/2016 PMH: Medical Problems: Arthritis, Stroke, Thyroid Disease, Factor 5 Liden Accidents: Tailbone FX Surgical Hx: Hand Surgery - 2002 Colonoscopy - 2004 Endoscopy - 2004 Heart Cath - 2007 Thriod Removed - 2009 Gallbladder Colonoscopy - (2016) Right thumb carpometacarpal arthroplasty - (06/03/2018) DR. DYER Anesthesia Complications: None Assistive Devices: Glasses Reviewed, no changes. 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 Personal Habits: Cigarette Use: Never.Alcohol: Denies use.Drug Use: Denies Use.Enjoy Exercising: Exercises 1-3 X/Week. Reviewed, no changes. VITALS: Ht: 58 Wt: 136lb Wt k.690 BMI: 28.4 BP: 124/82 Pulse: 18 Resp: 56 T: 97.9 T: 36.6C ALLERGIES: Naprosyn - upset stomach Contrast Dye Levofloxacin MEDICATIONS: [place] 5-325 mg 1-2 by mouth every 6 hour as needed pain, Multivitamins 1 po qday, Omeprazole 20 mg 1 cap PO bid, Atenolol 25 mg 1 tab PO qam and 1/2 tab qhs, Simvastatin 40 mg 1 PO qhs, Levothyroxine Sodium 75mcg 1 tab PO except 1/2 tab on sundays, [place] 5-325 mg 1-2 by mouth every 6 hour as needed pain, Warfarin Sodium 3 mg 1 tab PO 4 times A week, Warfarin Sodium 2 mg 1 tab PO 3 times A week PRE-OP EXAM: General appearance:NORMAL Other: Eyes: Conjunctivae and lids: NORMAL Pupils: ERR Ears, Nose, Mouth, and Throat: NORMAL Other: Inspection of lips, teeth and gums: NORMAL Other: Neck: Examination of neck: no masses noted. Respiratory: Assessment of respiratory effort: NORMAL Other: Auscultation of lungs: clear to auscultation no wheezes, rhonchi or rales. Cardiovascular: Auscultation of heart: regular rate and rhythm, positive murmur Gastrointestinal: Exam of abdomen: soft, nontender, nondistended bowel sounds present. PHYSICAL EXAMINATION: Examination of the left hand is cool to touch without erythema or signs of infection. Patient has tenderness to palpation over the first CMC joint left thumb. She also has associated swelling. Patient is complaining of numbness and tingling in the median nerve distribution. She has decreased strength with the left thumb. She has a positive grind test on the left, positive carpal compression on the left, positive fillings on the left, positive Tinel's on the left wrist and negative left elbow. Motor intact to AIN, PIN, and ulnar nerve. IMAGING STUDIES: X-rays of the left hand were obtained at today's visit including 3 views which does reveal severe first CMC joint osteoarthritis with complete joint space loss with subchondral sclerosis, subchondral cyst formation and osteophyte formation. There is subluxation of the joint left thumb. There is also associated STT osteoarthritis of the wrist. IMPRESSION: 1. Left thumb carpometacarpal joint osteoarthritis 2. Previous right thumb CMC joint arthroplasty 3. History of heart catheterization 2007 4. Hypertension 5. Factor V Leiden 6. Hyperlipidemia 7. Hypothyroidism 8. History of previous DVT right leg 9. Chronic anticoagulation currently on warfarin PLAN: I did discuss and review with the patient all treatment options including surgical versus nonsurgical options. Patient does wish to proceed with the above-stated procedure. Potential risks, benefits, and complications of the procedure were discussed in detail including but not limited to , infection, nerve and blood vessel damage, persistent pain, numbness, tingling, paresthesias, blood clot, pulmonary embolism, and requirement for possible further surgery. The patient expressed full understanding and has no further questions for the doctor. Patient does agree to proceed with the above-stated procedure and has signed the surgery consent form. This dictation was created using voice recognition software. Phonetic and/or grammatical errors may exist.. ___ I have re-examined the patient. There are no clinical changes since date of exam. ___ See progress notes for changes. ___ Dictated on admission Date: Time: Signature:
[2019-02-22 07:08] LABS: Hematocrit 43.4 % (37-47); Hemoglobin 13.9 g/dL (12.0-15.0); Mean Corpuscular Hgb 31.2 pg (27.0-32.0); Mean Corpuscular Volume 97.3 fL (81-99); Mean Platelet Vol. 9.8 fl (6.2-12.0); Platelet Count 209 K/mm3 (150-450); RBC Distribution Width CV 13.1 % (11.6-14.6); RBC Distribution Width SD 46.7 fl (35.1-43.9); Red Blood Count 4.46 M/mm3 (4.2-5.4)
[2019-02-22 07:37] LABS: Anion Gap 8 (5-15); BUN 11 mg/dL (7-18); BUN/Creat Ratio 13.3 RATIO (10-20); Calcium,Total 8.3 mg/dL (8.5-10.1); Chloride 113 mmol/L (98-107); Creatinine, Serum 0.82 mg/dL (0.55-1.02); EST Glomerular Filtration Rate 73 mL/min (>60); Est Glom Filt Rate - Afr Amer 89 mL/min (>60); Glucose 96 mg/dL (74-106); Potassium 4.2 mmol/L (3.5-5.1); Sodium Level 146 mmol/L (136-145)
[2019-03-10] VITALS (7 sets, daily range): BP systolic 109–133; BP diastolic 70–75; PULSE 56–92; RESP 16; TEMP 36.4–36.7; O2SAT 93–96; BMI 27.4
[2019-03-10] MEDS: Lactated Ringers 1,000 ML 100 ML IV ×2 (08:18→12:08)
[2019-03-10] MEDS: Cefazolin 2 GM in 0.9% Normal Saline 100 ML IV (10:02)
--- NOTE | 2019-03-10 11:29 | OP.PCM_ITS ---
Report of Operation Date of Procedure: 03/10/19 Pre-Operative Diagnosis: Left first CMC osteoarthritis. Left carpal tunnel syndrome Post-Operative Diagnosis: Left first CMC osteoarthritis. Left carpal tunnel syndrome. Left arterial artery laceration Surgery/Procedure Performed:: 1. Left first CMC suspension arthroplasty. 2. Left FCR tendon transfer. 3. Left carpal tunnel release. 4. Left radial artery repair Description of Surgical Findings:: We will reconstructed joint. Upon final exploration we did note that the artery had been lacerated. 7-0 Prolene suture was used to repair this. After repair tourniquet was let down artery was pulsatile and all digits were warm and pink. employee relations representative: Chrissy Carvalho Type of Anesthesia:: General Anesthesiologist: Maximiliano Nicolas Special Medications: 2 g Ancef, Estimated Blood Loss (mL): 15 Fluids Replaced: 1100 mL crystalloid Description of Procedure: Operative indications: 69-year-old f failed conservative measures for first CMC osteoarthritis and carpal tunnel syndrome. X-rays show joint space narrowing, subluxation of the joint and osteophyte formation as well as subchondral sclerosis. We discussed surgical intervention including first CMC arthroplasty with tendon transfer and left carpal tunnel release. Risks and benefits discussed included but were not limited to blood loss, DVTs, PEs, neurovascular damage, infection, general risk of anesthesia, hematoma and weakness. Patient demonstrated understanding was able to sign informed consent. Procedure: On the date of the procedure the patient's L hand was marked in the preoperative area. Patient was taken back to the operating room where they were transferred to the table in the supine position. Anesthesia assumed control the C-spine airway and remained in control throughout the remainder of the procedure. All bony prominences were identified and well-padded tourniquet was placed on the L upper extremity. The operative extremity was prepped in a sterile fashion. Surgeon then scrubbed Upon reentering the room, the right upper extremity was draped in a standard orthopedic fashion. Incision was marked out. Timeout was called everyone agreed upon the side, the site, the procedure to be performed, patient identity and antibiotics given. Esmarch bandage was used to exsanguinate the extremity. Tourniquet was placed up to 250 mmHg. Carpal tunnel incision was taken at the skin subtenons tissue fat down to fascia. Fascia was then lightly tethered until the median nerve was visible. A [place] was placed proximally and distally, and then scissors were placed proximally and distally to release the transverse carpal ligament. During the release the others were never completely closed. The [place] was then placed proximally and distally once more to verify the transverse carpal ligament had been adequately released. The wound was then copiously irrigated out with normal saline. Wound was then closed using 3-0 nylon suture. Arthroplasty incision was taken down through skin. Blunt dissection was taken through subcutaneous tissues. Superficial nerve was identified and retracted out of the way. Radial artery was identified and retracted out of the way. Once we are able to identify the joint arthrotomy was made and the trapezium was identified. Once the trapezium was identified dorsal and volar aspects were debrided of connective tissue. Saw was then used to make a cruciform cut in an osteotomy was completed with the osteotome. Once this was done a rongeur was used to remove the bone fragments and the trapezium in its entirety. Attention was then directed towards the FCR to harvest. FCR was identified in the wrist and FiberWire suture was placed around it passed up into the forearm. We then made a small incision in the form and brought the FiberWire through. Transection of the FCR was done in the forearm. The FCR tendon was then fed down to the wrist and into the joint in the previous incision. Vicryl suture was then used to tag the end of the graft for transfer. Attention was then directed towards the proximal end of the first metacarpal. A bur was used to make a bone tunnel for tendon transfer. Loop suture was then passed through the upper holes and used to pull the graft through the bone tunnel. Once this was done a sling was made and 3-0 Ethibond suture was used to tie the tendon on itself. Once the tendon was appropriately secured anchovy was made with the remainder of the tendon. This was sewn down into the joint using 3-0 Ethibond. Irrigation were used throughout the procedure. At this point the wound was explored and we noted that there was a injury complete laceration to the radial artery. Both ends were identified. 7-0 Prolene was used to make a running suture repair. After the repair using microscopic instruments the tourniquet was let down. The artery remained pulsatile. All digits were warm and pink and with brisk cap refill. No gross defects were noted in the artery at this point. Arthrotomy was closed with 2-0 Vicryl skin was closed with 2-0 Vicryl and 4-0 Monocryl with Steri-Strips. Xeroform dressing was placed. Sterile dressing was placed. Compressive dressing was placed. Tourniquet was let down. Well-padded splint was then placed with the thumb in abduction. Patient was then awakened by anesthesia and transferred to the PACU for recovery. Postoperative plan: Patient will remain in the splint for 2 weeks. 2 weeks we will check the incision and remove any sutures or tails. He will be transferred to a cast and abduction at that time. They will then follow standard postoperative protocol for first CMC arthroplasty with Occupational Therapy. - Complications Radial artery laceration - Admit VTE Documentation VTE Present on Admission: No VTE Mechan Device Prophylaxis: SCD's VTE Pharm Prophylaxis ordered?: No
[2019-03-10] MEDS: Bupivacaine Mpf 0.5% 30 ML VIAL (11:39)
[2019-03-10] MEDS: Ketorolac 15 MG/ML Vial IV (12:05)
[2019-03-10 12:20] LABS: Prothrombin Time Fingerstick 13.1 SEC (11.9-14.4)
[2019-03-26 14:17] LABS: Prothrombin Time Fingerstick 13.1 SEC (11.9-14.4)
== END 2019-03-10 13:38 | disposition home or self-care (01) ==
LOC: SDC 07:44 → AC 07:44
PROVIDERS: Physician Assistant Surgical; Family Provider Family Medicine; PCP Family Medicine; Referring Provider Specialist; Visit Provider Specialist
PROC: (CPT 25447; principal; 2019-03-10 09:30)
DX: M19.042 Primary osteoarthritis, left hand (principal); G56.02 Carpal tunnel syndrome, left upper limb; Z85.850 Personal history of malignant neoplasm of thyroid; D68.51 Activated protein C resistance; I97.52 Accidental puncture and laceration of a circulatory system organ or structure during other procedure; Y65.8 Other specified misadventures during surgical and medical care; Y92.234 Operating room of hospital as the place of occurrence of the external cause; K21.9 Gastro-esophageal reflux disease without esophagitis; Z79.899 Other long term (current) drug therapy; I10 Essential (primary) hypertension
CPT/HCPCS: 25447; 26480; 35206; 64721; 36415; 36416; 80048; 85027; 85610; J7120; J0702

== ENCOUNTER 2019-06-07 12:00 | Outpatient (RCR) | payer MEDICARE, OTHER, SELFPAY ==
[2019-03-10 08:09] VITALS: BMI 27.4
--- NOTE | 2019-04-12 15:06 | HP.OTEVAL_ITS ---
Patient's Visit Information SHANE CHAMBERS is a 69 year old F, referred to Occupational Therapy by Cornelius Dyer MD, with a diagnosis of left 1st carpometacarpal osteroarthritis/ CTR. Date of Evaluation: 04/12/19 Occupational Therapist: Martina Luu, OTR/Sacha, CHT - Subjective Subjective: This 69 year old female was seen for OT eval with dx of left 1st carpometacarpal joint osteoarthritis. 5 weeks following a left CMC arthroplasty with CTR. Pt states sx was on Mar.10. Today pt is in need of custom orthosis and ed.on CMC arthroplasty protocol. Pt states she is better but pretty painful. Pt is hopeful she can return to her PLOF. - ADLs Dressing: Pants, Socks Fasteners: Buttons, Zippers, Snaps, [place] Eating: Cut food Bathing: Handle washcloth & soap, Squeeze shampoo bottle Kitchen: Peel fruits & vegetables, Open jars, Open bottle caps - Pain left hand 4 Pain Intensity Range: 1, 6 - ROM Wrist: right 65/60 left 20/25 CMC: right 10 left 5 MP: right 50 left 10 IP: right 65 left 15 Opposition: left 4 ROM Comments: pt demo with limited thumb and wrist ROM - Strength Identification And Records Commander: right 40# left NT Lateral Pinch: right 6# left NT Tripod Pinch: right 8# left NT - Sensation Sensation Comments: denies - Quick DASH-Disab of Arm,Shoulder& Hand Quick DASH Score: 50.0000 - Goals Goal:100% adherence to protocol: Yes Comment: CMC arthroplasty. Goal:Daily scar massage when approriate: Yes Goal:ROM equal to unaffected hand: Yes Goal:Identification And Records Commander/Pinch strength at least 75% of unaffected hand: Yes Goal:No pain with affected hand use: Yes Goal:Full use of affected hand in daily activities including: Yes Goal:Decrease scar hypersensitivity: Yes - Rehabilitation General Assessment: Pt is currently 5 weeks s/p left CMC arthroplasty and CTR. pt demo limited ROM/strength and pain limiting pts ind. with ADLS and IADLS. PT demo need for skilled OT services 1-2x week for 6 weeks to return pt to PLOF. Today Pt is in need of custom orthosis to provide protection and support. Therapist holly. custom plam based thumb spica with thumb in rested position, allowing for IP flex. pt ed. on use and demo ind. don/doff of orthosis. Pt ed. in supported MP and IP flex, oppostion, ice and wrist AROM. pt was given handout and demo understanding of ex and agree to POC. Rehabilitation Potential: Good - Anticipated Interventions Anticipated Interventions: A/AAROM/PROM, Strengthening, Triggerpoint Release, Desensitization, Modalities, Joint Protection/Energy Conservation - Visit Plan Frequency: 1-2x /Week Duration: 4 Weeks TEXT: Thank you for the opportunity to evaluate your patient. For Medicare and Medicare HMO plans, please review the plan of care and approve it. It will need to be FAXED BACK to us at [phone] for Medicare purposes. Please let me know if there are questions or concerns regarding this plan of care. Physician Signature: Date:
--- NOTE | 2019-05-06 12:26 | OTREVAL_ITS ---
Cornelius Dyer MD, It has been my pleasure to treat SHANE CHAMBERS over the last 8 visits for left 1st carpometacarpal osteroarthritis/ CTR. Please see the progress note below for an update on the occupational therapy plan of care! Subjective: pt returns states she continues to have pain - states she did use her brace to sleep in and her pain was less- but cont. to have painful wrist and hand Objective/Function: left wrist 45/35. left thumb MP 35. left thumb IP 40. pt having diffuse pain around wrist and down volar forarm- pts pain was limitting her use and sleep pattern- therapist advised pt to cont wearing her brace when out of the home and at night- therapist would like to return to using left UE for ADLs with pain no greater than 2/10 currnetly pt's pain is 5-6/10 and following therapy 2/10 Plan Frequency: 1-2x /Week Duration: 4 Weeks Plan: POC decrease use with daily task- use orthosis to provide protection and support Anticipated Interventions Anticipated Interventions: A/AAROM/PROM, Strengthening, Triggerpoint Release, Desensitization, Modalities, Joint Protection/Energy Conservation Please do not hesitate to contact me at [phone] by phone or Fax: if you have questions or concerns regarding this new plan of care! Sincerely, MANUEL Fuentes/Sacha, CHT
--- NOTE | 2019-06-07 12:22 | HP.OTDCSUM_ITS ---
HP - OT D/C Summary It has been my pleasure to treat SHANE CHAMBERS under orders from Cornelius Dyer MD, for the diagnosis of left 1st carpometacarpal osteroarthritis/ CTR for a total of 15 visit(s). Please see the following information for a summary of their discharge status. - Overall Improvement % Improvement: 80 - Objective Objective/Function: left wrist 55/40. left CMC 15* flex. MP 40* fles. IP 55*. pt reports pulling in incision area. right contact agent 35# left 30#. right lateral pinch 8# left 6#. right tripod pinch 6# left 4#. pt objective measurements have made great gains- however pt is demo with diffuse pain around incision, around ulnar side of hand and at her wrist- pt feels pain is most limiting pt with ADls and IADLs - Goals Patient Goals: Regain Mobility, Regain Strength, Decrease Pain, Use Hand/Wrist/Arm Normally Again Goal:100% adherence to protocol: Yes Goal:Daily scar massage when approriate: Yes Goal:ROM equal to unaffected hand: Yes Goal:Brewery Representative/Pinch strength at least 75% of unaffected hand: Yes Goal:No pain with affected hand use: Yes Goal:Full use of affected hand in daily activities including: Yes Goal:Decrease scar hypersensitivity: Yes - Plan Plan: cont POC - D/C Information Discharge Comments: pt was seen for 13 visits in OT- pt made good gains with her ROM of left wrist and thumb- pt however still has pain on avg. 4/10 with daily use. pt has been ed. on scar desensitization, scar massage and use of scar gel to decrease scar sensitivity. pt will be D/C with cont HEP to cont to decrease her scar sensitivity. pt to use heat PRN as needed to decrease pain. Pt was advised to decrease use of brace with daily tasks. pt does report tingling around incison on thumb- no tingling throughout median nerve distribution at this time. pt demo good understanding and has handout on scar mtg. pt d//c with HEP If there are questions or concerns regarding this patient's occupational therapy, please fell free to call me at [phone]. Thank you for the referral of this patient. Sincerely, Martina Luu, OTR/L, CHT
== END 2019-06-07 19:00 | disposition home or self-care (01) ==
LOC: OT 12:00
PROVIDERS: Family Provider Family Medicine; PCP Family Medicine; Referring Provider Specialist; Visit Provider Specialist
DX: M18.12 Unilateral primary osteoarthritis of first carpometacarpal joint, left hand (principal); G56.02 Carpal tunnel syndrome, left upper limb
CPT/HCPCS: 97035; 97110; 97140; 97166; 97530; 97760

== ENCOUNTER 2019-06-10 06:14 | Outpatient (RCR) | payer MEDICARE, OTHER, SELFPAY ==
[2019-02-08 12:57] VITALS: BMI 27.3
[2019-03-10 08:09] VITALS: BMI 27.4
[2019-06-10 08:05] LABS: Absolute Lymphocyte Count 1.54 X10^3/uL (0.83-4.51); Absolute Neutrophil Count 1.8 X10^3/uL (2.0-7.7); Basophil# 0.04 X10^3/uL; Eosinophil# 0.09 X10^3/uL; Eosinophils% 2.4 % (0-5); Hemoglobin 13.4 g/dL (12.0-15.0); International Normalized Ratio 1.9; Lymphocyte # 1.54 X10^3/ul (4.0); Lymphocyte % 40.4 % (19-41); Mean Corp Hgb Conc 31.9 g/dL (32-36); Mean Corpuscular Hgb 31.5 pg (27.0-32.0); Mean Corpuscular Volume 98.6 fL (81-99); Monocyte# 0.37 X10^3/uL; Monocyte% 9.7 % (0-10); NRBC Flagged by Analyzer 0 % (0-5); Neutrophil # 1.75 X10^3/uL (2.7-7.7); Platelet Count 195 K/mm3 (150-450); Prothrombin Time (Protime)PT. 21.6 SECONDS (11.7-14.9); RBC Distribution Width CV 13.5 % (11.6-14.6); RBC Distribution Width SD 49.2 fl (35.1-43.9); Red Blood Count 4.26 M/mm3 (4.2-5.4); White Blood Count 3.8 K/mm3 (4.4-11.0)
[2019-06-10 08:27] LABS: ALB/GLOB Ratio 1.2 RATIO (0.9-2.4); AST(SGOT) 19 U/L (15-37); Alanine Aminotransfer ALT/SGPT 28 U/L (13-56); Albumin, Serum 3.4 g/dL (3.2-5.0); Alkaline Phosphatase 96 U/L (45-117); Anion Gap 3 (5-15); BUN 17 mg/dL (7-18); Bilirubin, Direct 0.15 mg/dL (0.00-0.30); Calcium,Total 8.2 mg/dL (8.5-10.1); Chloride 113 mmol/L (98-107); Cholesterol 162 mg/dL (200); EST Glomerular Filtration Rate 66 mL/min (>60); Est Glom Filt Rate - Afr Amer 80 mL/min (>60); Free T3 1.9 pg/mL (2.18-3.98); Globulin 2.9 g/dL (2.2-4.2); Glucose 87 mg/dL (74-106); High Density Lipoprotein 79 mg/dL; Potassium 3.8 mmol/L (3.5-5.1); Protein, Total 6.3 g/dL (6.4-8.2); Sodium Level 145 mmol/L (136-145); T4 Free Direct 1.05 ng/dL (0.76-1.46); Thyroid Stim Hormone (TSH) 1.07 uIU/mL (0.358-3.74); Triglycerides 73 mg/dL; Very Low Density Lipoprotein 15 mg/dL (5-40)
== END 2019-06-10 18:00 | disposition home or self-care (01) ==
LOC: LAB 06:14
PROVIDERS: Nurse Practitioner Family; Family Provider Family Medicine; PCP Family Medicine; Referring Provider Family Medicine; Visit Provider Family Medicine
DX: D68.2 Hereditary deficiency of other clotting factors (principal); E03.9 Hypothyroidism, unspecified; E78.5 Hyperlipidemia, unspecified; Z51.81 Encounter for therapeutic drug level monitoring
CPT/HCPCS: 80053; 80061; 82248; 84439; 84443; 84481; 85025; 85610

== ENCOUNTER → 2019-08-12 09:47 | Outpatient (CLI) | payer MEDICARE, OTHER, SELFPAY ==
[2019-03-10 08:09] VITALS: BMI 27.4
--- NOTE | 2019-08-12 09:50 | BI_ITS ---
MAMMOGRAPHY - BILATERAL SCREENING REASON FOR EXAM: Female, 69 years old. Routine annual screening examination. PERTINENT HISTORY: Aunts with breast cancer. TECHNIQUE: Digital bilateral breast brayan (3D mammographic acquisition) in the CC and MLO projections. 2-D mediolateral oblique (MLO) and craniocaudad (CC) views of both breasts were obtained. CAD: Full Field Digital Mammography with Computer Added Detection was performed. COMPARISON: Comparison is made with prior examination August 10, 2018 and July 18, 2017. FINDINGS: Breast Composition: There are scattered areas of fibroglandular density. There are no dominant masses or suspicious calcifications. No other significant abnormalities are identified. There has been no significant change since the prior study. BI/SCREEN MAMM (CAD) W/BRAYAN BILAT IMPRESSION: Stable bilateral screening mammogram. Yearly follow-up mammogram recommended. (A) ASSESSMENT CATEGORY: BIRADS Category 1: Negative. A letter regarding these results will be sent to the patient by the facility within 30 days. Approximately 10% of breast cancers are not detected by mammography. A normal mammogram should not delay biopsy of a clinically suspicious abnormality. [id number] Electronically Signed: Efrain Klein, at 11:21 EDT , Service support ,
--- NOTE | 2019-08-12 09:54 | BD_ITS ---
STUDY: DUAL ENERGY X-RAY ABSORPTIOMETRY / DXA REASON FOR EXAM: Female, 69 years old. 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 COMPARISON: Comparison is made with prior examination dated July 04, 2016. FINDINGS: Lumbar Spine (L1-L4): g/cm2 (1.057) / T-score (-0.9) / Z-score (0.7) Findings are suggestive of normal bone density with a low fracture risk. Increased kyphosis. Left Femur Total: g/cm2 (0.865) / T-score (-1.1) / Z-score (0.2) Left Femoral Neck: g/cm2 (0.815) / T-score (-1.6) / Z-score (0.0) Right Femur Total: g/cm2 (0.888) / T-score (-0.9) / Z-score (0.4) Right Femoral Neck: g/cm2 (0.864) / T-score (-1.3) / Z-score (0.4) The T-Scores on the most recent prior examination were: Lumbar Spine (L1-L4): There has been worsening of bone density since the previous examination. Left Femur Total: which represents a worsening of 4.7%. Right Femur Total: which represents a worsening of 5.8%. BD/Dexa Bone Density Study IMPRESSION: The patient is considered osteopenic as outlined below according to World Gian Organization (WHO) criteria with a moderate fracture risk. There has been worsening of bone density since the previous examination. Reference Information: The T-score is the number of standard deviations above or below the standard which is normal for young adults at their peak bone mineral density. The World Health Organization (WHO) interprets the T-scores as follows: Above -1 Normal bone density Between -1 and -2.5 Osteopenia Equal to / or below -2.5 Osteoporosis As a practical clinical guideline, osteopenia may be graded as follows: Mild -1 through -1.5 Moderate -1.6 through -2.0 Severe -2.1 through -2.4 The Z-score is the number of standard deviations above or below age-matched controls. A Z-score of less than -1.5 would be considered abnormal. References: 1. NIH Osteoporosis and Related Bone Diseases http://www.osteo.org 2. International Society for Clinical Densitometry http://www.iscd.org 3. National Osteoporosis Foundation http://www.nof.org Electronically Signed: Efrain Klein, at 8:23 EDT , Service support ,
== END ==
PROVIDERS: PCP Family Medicine; Referring Provider Family Medicine; Visit Provider Family Medicine
DX: Z12.31 Encounter for screening mammogram for malignant neoplasm of breast (principal); M81.0 Age-related osteoporosis without current pathological fracture
CPT/HCPCS: 77063; 77067; 77080

== ENCOUNTER → 2019-08-13 06:46 | Outpatient (CLI) | payer MEDICARE, OTHER, SELFPAY ==
[2019-03-10 08:09] VITALS: BMI 27.4
--- NOTE | 2019-08-13 07:03 | EKG12_ITS ---
Test Reason : Blood Pressure : / mmHG Vent. Rate : 071 BPM Atrial Rate : 071 BPM P-R Int : 148 ms QRS Dur : 082 ms QT Int : 410 ms P-R-T Axes : 064 068 043 degrees QTc Int : 445 ms Normal sinus rhythm with sinus arrhythmia Normal ECG Confirmed by MARGARET ROSARIO, FRANCOIS ([id number]), videotape editor JEN SIFUENTES ([id number]) on 08/13/2019 1:06:53 PM Referred By: Johanna Nuñez Confirmed By:FELIX ROBLES MD
[2019-08-13 07:17] LABS: Absolute Lymphocyte Count 1.27 X10^3/uL (0.83-4.51); Absolute Neutrophil Count 1.7 X10^3/uL (2.0-7.7); Basophil# 0.03 X10^3/uL; Basophil% 0.9 % (0-1); Eosinophils% 2.9 % (0-5); Hematocrit 44.8 % (37-47); Hemoglobin 14.6 g/dL (12.0-15.0); Lymphocyte # 1.27 X10^3/ul (4.0); Lymphocyte % 37.1 % (19-41); Mean Corp Hgb Conc 32.6 g/dL (32-36); Mean Corpuscular Hgb 31.9 pg (27.0-32.0); Mean Platelet Vol. 9.5 fl (6.2-12.0); Monocyte# 0.31 X10^3/uL; Monocyte% 9.1 % (0-10); NRBC Flagged by Analyzer 0 % (0-5); Neutrophil % 49.7 % (47-70); Platelet Count 208 K/mm3 (150-450); RBC Distribution Width CV 12.8 % (11.6-14.6); RBC Distribution Width SD 45.9 fl (35.1-43.9); Red Blood Count 4.57 M/mm3 (4.2-5.4); White Blood Count 3.4 K/mm3 (4.4-11.0)
[2019-08-13 07:46] LABS: Anion Gap 6 (5-15); BUN 12 mg/dL (7-18); BUN/Creat Ratio 13.8 RATIO (10-20); Calcium,Total 8.5 mg/dL (8.5-10.1); Chloride 111 mmol/L (98-107); Creatinine, Serum 0.87 mg/dL (0.55-1.02); EST Glomerular Filtration Rate 69 mL/min (>60); Est Glom Filt Rate - Afr Amer 83 mL/min (>60); Glucose 93 mg/dL (74-106); Potassium 3.9 mmol/L (3.5-5.1); Sodium Level 142 mmol/L (136-145)
== END ==
PROVIDERS: PCP Family Medicine; Referring Provider Registered Nurse; Visit Provider Registered Nurse
DX: Z01.810 Encounter for preprocedural cardiovascular examination (principal); Z01.818 Encounter for other preprocedural examination
CPT/HCPCS: 36415; 80048; 85025; 93005

== ENCOUNTER → 2019-08-25 09:44 | Outpatient (CLI) | payer MEDICARE, OTHER, SELFPAY ==
[2019-08-13 14:27] VITALS: BMI 29.2
--- NOTE | 2019-08-25 09:45 | ECHOD_ITS ---
Reason For Study: Bicuspid AoV Procedure This was a 2D Doppler, Color Flow transthoracic echocardiogram. Exam performed in department. Left Ventricle Normal size and thickness. The estimated ejection fraction is 65 %. Stage 1 diastolic dysfunction. No regional wall motion abnormalities noted. Right Ventricle Normal size and thickness. Normal systolic function. Atria Normal left atrium. Normal right atrium. Normal atrial septum. Mitral Valve The mitral valve is structurally normal. No prolapse or stenosis seen. Tricuspid Valve Normal tricuspid valve. Trivial tricuspid valve insufficiency. Right ventricular systolic pressure estimated to be 35 mmHg. Aortic Valve Bicuspid aortic valve. There is no aortic stenosis. Pulmonic Valve Normal pulmonic valve. No pulmonic valve insufficiency. Great Vessels Normal aortic root. Normal arch. Normal inferior vena cava. Inferior vena cava collapse with sniff. Pericardium/Pleural No pericardial effusion. MMode/2D Measurements & Calculations LVIDd: 4.4 cm IVSd: 1.1 cm Ao root diam: 3.1 cm LVIDs: 3.0 cm LVPWd: 0.82 cm LA dimension: 3.8 cm RVDd: 3.4 cm FS: 32.9 % LAV(MOD-bp): 26.4 ml LVAd ap4: 20.7 cm2 SV(MOD-sp4): 36.9 ml LAV(MOD-bp) Indexed: 17.1 ml/m2 EDV(MOD-sp4): 58.5 ml LAV(MOD-sp2): 28.1 ml EDV(sp4-el): 59.7 ml LAV(MOD-sp4): 23.2 ml LVAs ap4: 11.5 cm2 ESV(MOD-sp4): 21.6 ml ESV(sp4-el): 21.9 ml EF(MOD-sp4): 63.1 % EF(sp4-el): 63.3 % SV(sp4-el): 37.8 ml LA A4 area: 10.9 cm2 RA A4 area: 11.8 cm2 Doppler Measurements & Calculations MV E max jt: 74.4 cm/sec Lat Peak E' Jt: 6.4 cm/sec Med Peak E' Jt: 4.8 cm/sec MV A max jt: 75.7 cm/sec E/E' lat: 11.6 E/E' med: 15.6 MV E/A: 0.98 Ao V2 max: 143.4 cm/sec LV V1 max: 81.2 cm/sec PA V2 max: 57.8 cm/sec Ao max P.2 mmHg LV V1 max P.6 mmHg Ao V2 mean: 99.1 cm/sec Ao mean P.3 mmHg Ao V2 VTI: 40.3 cm TR max jt: 273.0 cm/sec TR max P.8 mmHg Interpretation Summary The estimated ejection fraction is 65 %. Stage 1 diastolic dysfunction. Trivial tricuspid valve insufficiency. Right ventricular systolic pressure estimated to be 35 mmHg. Bicuspid aortic valve. There is no aortic stenosis. Compared to echo report dated 07/08/2018, no appreciable chages noted. Ordering Physician: Jacinto Laureano Referring Physician: Adelina Alvarenga Performed By: Charito Arvizu RDCS, RVT
--- NOTE | 2019-08-25 09:45 | CDU_ITS ---
Reason For Study: VERTIGO Rt. Velocities/BP Lt. Velocities/BP Prox CCA 76.0/17.3 cm/sec. Prox CCA 93.6/27.4 cm/sec. Mid CCA 69.5/18.6 cm/sec. Mid CCA 72.8/21.2 cm/sec. Dist CCA 65.1/12.9 cm/sec. Dist CCA 72.8/21.2 cm/sec. Prox ICA 44.9/14.2 cm/sec. Prox ICA 53.4/16.0 cm/sec. Mid ICA 80.9/35.8 cm/sec. Mid ICA 87.4/32.5 cm/sec. Dist ICA 120.7/32.3 cm/sec. Dist ICA 93.7/33.5 cm/sec. Rt. ICA/CCA = 120.7/76.0=1.6. Lt. ICA/CCA = 93.7/93.6=1.0. Prox ECA 50.7/9.0 cm/sec. Prox ECA 64.2/18.8 cm/sec. Rt. Vert. 80.2/24.9 cm/sec. Lt. Vert. 96.1/28.6 cm/sec. Right Extracranial There is intimal thickening but no significant atherosclerotic plaque noted in the right common carotid artery. There is no significant atherosclerotic plaque noted in the right internal carotid artery. The tortuous nature of the right distal internal carotid artery may result in flow velocities overestimating the degree of stenosis. There is no significant atherosclerotic plaque noted in the right external carotid artery. Antegrade flow is noted in the right vertebral artery. Left Extracranial There is intimal thickening but no significant atherosclerotic plaque noted in the left common carotid artery. There is intimal thickening but no significant atherosclerotic plaque noted in the left internal carotid artery. There is intimal thickening but no significant atherosclerotic plaque noted in the left external carotid artery. Antegrade flow is noted in the left vertebral artery. Procedure Carotid Duplex [id number]. The exam was diagnostic. Exam performed in department. Interpretation Summary No hemodynamically significant plaque or stenosis right extracranial internal carotid artery with less than 50% stenosis. Significant tortuosity of the distal right internal carotid noted. No hemodynamically significant plaque or stenosis left extracranial internal carotid artery with less than 50% stenosis Less than 50% stenosis bilateral external carotid arteries Patent and antegrade vertebrals bilaterally Ordering Physician: Jacinto Laureano Referring Physician: Adelina Alvarenga Performed By: Blossom Fenton, VERA, RVT
== END ==
PROVIDERS: PCP Family Medicine; Referring Provider Internal Medicine Cardiovascular Disease; Visit Provider Internal Medicine Cardiovascular Disease
DX: R00.2 Palpitations (principal); R42 Dizziness and giddiness
CPT/HCPCS: 93306; 93880

== ENCOUNTER → 2019-09-30 13:06 | Outpatient (CLI) | payer MEDICARE, OTHER, SELFPAY ==
[2019-08-13 14:27] VITALS: BMI 29.2
--- NOTE | 2019-09-30 13:07 | STE_ITS ---
Reason For Study: BICUSPID AORTIC VALVE Stress Results Protocol: Stress Echocardiogram Maximum Predicted HR: 152 bpm Target HR: 129 bpm % Maximum Predicted HR: 88 % DurationHeart Rate Stage (mm:ss) (bpm) BP Comment BASELINE 63 128/78NO COMPLAINTS WESTON PROTOCOL- STAGE 1 3:00 97 140/74NO SX WESTON PROTOCOL- STAGE 2 3:00 113 152/70NO SX WESTON PROTOCOL- STAGE 3 1:54 134 158/78SL DYSPNEA, FATIGUE RECOVERY 66 110/50DENIES COMPLAINT Stress Duration: 7:54 mm:ss Maximum Stress HR: 134 bpm Baseline Echocardiogram Findings The estimated ejection fraction is 65 %. Stress Echo Wall motion Data Resting WM Intermediate WM Stress WM Resting Wall Motion Wall Motion Stress No regional wall motion No regional wall motion abnormalities noted. abnormalities noted. EKG Data The baseline ECG displays normal sinus rhythm. The patient exercised according to the regular [facility] protocol for a total duration of 7:54. The maximum heart rate attained was 134 beats per minute. This was 88% of maximum predicted heart rate. The patient exercised into stage 3 of the [facility]on protocol. During stress, there were no ST or T wave changes noted to suggest ischemia. Interpretation Summary The estimated ejection fraction is 65 %. Normal, adequate, treadmill echocardiogram. Negative for ischemia by EKG and echocardiographic criteria. Good chronotropic response to exercise. Average exercise capacity for age. Appropriate blood pressure response to exercise. Final LVEF is 75%. Test terminated the attainment target heart rate, fatigue and dyspnea. No complications. Ordering Physician: Jacinto Laureano MD Referring Physician: Jacinto Laureano Performed By: Raya Gupta, VERA, RVT
== END ==
PROVIDERS: PCP Family Medicine; Referring Provider Internal Medicine Cardiovascular Disease; Visit Provider Internal Medicine Cardiovascular Disease
DX: I25.10 Atherosclerotic heart disease of native coronary artery without angina pectoris (principal); E78.00 Pure hypercholesterolemia, unspecified; Q23.1 Congenital insufficiency of aortic valve
CPT/HCPCS: 93017; 93350

== ENCOUNTER → 2019-11-23 06:02 | Outpatient (CLI) | payer MEDICARE, OTHER, SELFPAY ==
[2019-08-13 14:27] VITALS: BMI 29.2
[2019-11-23 06:49] LABS: Absolute Neutrophil Count 2.3 X10^3/uL (2.0-7.7); Basophil# 0.03 X10^3/uL; Basophil% 0.7 % (0-1); Eosinophil# 0.09 X10^3/uL; Eosinophils% 2.1 % (0-5); Hemoglobin 14.2 g/dL (12.0-15.0); Lymphocyte % 33.3 % (19-41); Mean Corpuscular Hgb 31.6 pg (27.0-32.0); Mean Corpuscular Volume 95.8 fL (81-99); Mean Platelet Vol. 10.3 fl (6.2-12.0); Monocyte# 0.42 X10^3/uL; NRBC Flagged by Analyzer 0 % (0-5); Neutrophil # 2.26 X10^3/uL (2.7-7.7); Neutrophil % 53.7 % (47-70); Platelet Count 228 K/mm3 (150-450); RBC Distribution Width CV 12.5 % (11.6-14.6); RBC Distribution Width SD 43.9 fl (35.1-43.9); Red Blood Count 4.49 M/mm3 (4.2-5.4); White Blood Count 4.2 K/mm3 (4.4-11.0)
[2019-11-23 07:25] LABS: ALB/GLOB Ratio 1.2 RATIO (0.9-2.4); AST(SGOT) 22 U/L (15-37); Alanine Aminotransfer ALT/SGPT 24 U/L (13-56); Albumin, Serum 3.7 g/dL (3.2-5.0); Alkaline Phosphatase 113 U/L (45-117); Anion Gap 5 (5-15); BUN 13 mg/dL (7-18); BUN/Creat Ratio 15.7 RATIO (10-20); Chloride 113 mmol/L (98-107); Cholesterol 145 mg/dL (200); Creatinine, Serum 0.83 mg/dL (0.55-1.02); EST Glomerular Filtration Rate 73 mL/min (>60); Est Glom Filt Rate - Afr Amer 88 mL/min (>60); Free T3 2.8 pg/mL (2.18-3.98); Globulin 3.1 g/dL (2.2-4.2); Glucose 90 mg/dL (74-106); High Density Lipoprotein 66 mg/dL; Potassium 4.3 mmol/L (3.5-5.1); Protein, Total 6.8 g/dL (6.4-8.2); Sodium Level 146 mmol/L (136-145); T4 Free Direct 1.12 ng/dL (0.76-1.46); Thyroid Stim Hormone (TSH) 0.25 uIU/mL (0.358-3.74); Triglycerides 109 mg/dL; Very Low Density Lipoprotein 22 mg/dL (5-40)
== END ==
PROVIDERS: PCP Family Medicine; Referring Provider Family Medicine; Visit Provider Family Medicine
DX: Z51.81 Encounter for therapeutic drug level monitoring (principal); E03.9 Hypothyroidism, unspecified; E78.5 Hyperlipidemia, unspecified
CPT/HCPCS: 36415; 80053; 80061; 82248; 84439; 84443; 84481; 85025

== ENCOUNTER 2020-01-27 10:28 | Outpatient (RCR) | payer MEDICARE, OTHER, SELFPAY ==
[2019-03-10 08:09] VITALS: BMI 27.4
[2019-08-13 14:27] VITALS: BMI 29.2
[2020-01-27 11:44] LABS: International Normalized Ratio 2.1; Prothrombin Time (Protime)PT. 22.9 SECONDS (11.7-14.9)
[2020-01-27 12:07] LABS: Free T3 1.9 pg/mL (2.18-3.98); T4 Free Direct 1.28 ng/dL (0.76-1.46); Thyroid Stim Hormone (TSH) 1.54 uIU/mL (0.358-3.74)
== END 2020-01-31 18:00 | disposition home or self-care (01) ==
LOC: LAB 10:28
PROVIDERS: Family Provider Family Medicine; PCP Family Medicine; Referring Provider Family Medicine; Visit Provider Family Medicine
DX: D68.2 Hereditary deficiency of other clotting factors (principal); E03.9 Hypothyroidism, unspecified; E78.5 Hyperlipidemia, unspecified; Z51.81 Encounter for therapeutic drug level monitoring
CPT/HCPCS: 36415; 84439; 84443; 84481; 85610

== ENCOUNTER → 2020-02-22 06:33 | Outpatient (CLI) | payer MEDICARE, OTHER, SELFPAY ==
[2019-08-13 14:27] VITALS: BMI 29.2
--- NOTE | 2020-02-22 06:46 | MRI_ITS ---
STUDY: MRI LUMBAR SPINE WITHOUT CONTRAST REASON FOR EXAM: Female, 69 years old. c/o low back pain into L hip X 4 weeks no trauma TECHNIQUE: Standardized fat and water weighted pulse sequences were obtained in the sagittal and axial planes. COMPARISON: None FINDINGS: T12-L1: Small central disc protrusion produces mild spinal stenosis but no neural foraminal stenosis. There is an exaggerated lumbar lordosis. There is no substantial scoliosis. Normal conus medullaris that terminates at the L1. Mild loss of height of the T11 vertebral body with edema of the superior endplate consistent with an acute mild compression fracture. L1-2: Mild bilateral facet hypertrophy with fluid in the facet joints consistent with instability and mild ligament flavum hypertrophy. 2 mm retrolisthesis of L1 on L2 with a mild bilobed disc protrusion produces mild spinal stenosis and mild bilateral neural foraminal stenosis. L2-3: Mild bilateral facet hypertrophy with fluid in the facet joints consistent with instability and mild ligament flavum hypertrophy. 2 mm retrolisthesis of L2 on L3 with a mild bilobed disc protrusion produces mild spinal stenosis and mild bilateral neural foraminal stenosis. L3-4: Mild bilateral facet hypertrophy and ligament flavum hypertrophy. Mild bilobed disc protrusion produces mild spinal stenosis and mild bilateral neural foraminal stenosis. L4-5: Mild bilateral facet hypertrophy and moderate ligament flavum hypertrophy. Mild broad disc protrusion produces mild spinal stenosis and mild bilateral neural foraminal stenosis. L5-S1: Mild bilateral facet hypertrophy and moderate ligament flavum hypertrophy. Mild broad disc protrusion produces mild spinal stenosis and mild bilateral neural foraminal stenosis. Normal visualized sacral ala. Normal visualized paraspinous soft tissue structures. MRI/Spine Lumbar (Routine) IMPRESSION: 1. Acute mild compression fracture of T11 without retropulsion into the spinal canal. 2. Degenerative disc disease as described above. Electronically Signed: Timmy Harris MD at 8:59 EDT Tel , Service support ,
== END ==
PROVIDERS: PCP Family Medicine; Referring Provider Family Medicine; Visit Provider Family Medicine
DX: M51.16 Intervertebral disc disorders with radiculopathy, lumbar region (principal)
CPT/HCPCS: 72148

== ENCOUNTER → 2020-04-12 09:05 | Outpatient (CLI) | payer MEDICARE, OTHER, SELFPAY ==
[2019-08-13 14:27] VITALS: BMI 29.2
[2020-03-09 10:34] VITALS: BMI 28.8
[2020-04-12 12:34] LABS: International Normalized Ratio 2.1; Prothrombin Time (Protime)PT. 23.4 SECONDS (11.7-14.9)
[2020-04-12 13:52] LABS: Free T3 1.6 pg/mL (2.18-3.98); T4 Free Direct 0.22 ng/dL (0.76-1.46)
== END ==
PROVIDERS: PCP Family Medicine; Visit Provider Family Medicine
DX: E03.9 Hypothyroidism, unspecified (principal); D68.2 Hereditary deficiency of other clotting factors
CPT/HCPCS: 36415; 84439; 84443; 84481; 85610

== ENCOUNTER → 2020-05-03 14:56 | Outpatient (CLI) | payer MEDICARE, OTHER, SELFPAY ==
[2020-03-09 10:34] VITALS: BMI 28.8
[2020-05-03 18:12] LABS: Absolute Lymphocyte Count 0.63 X10^3/uL (0.83-4.51); Absolute Neutrophil Count 3.1 X10^3/uL (2.0-7.7); Basophil# 0.01 X10^3/uL; Basophil% 0.3 % (0-1); Hemoglobin 13.2 g/dL (12.0-15.0); Lymphocyte # 0.63 X10^3/ul (4.0); Mean Corp Hgb Conc 32.2 g/dL (32-36); Mean Corpuscular Hgb 32.2 pg (27.0-32.0); Mean Platelet Vol. 10.5 fl (6.2-12.0); Monocyte# 0.22 X10^3/uL; Monocyte% 5.6 % (0-10); NRBC Flagged by Analyzer 0 % (0-5); Neutrophil # 3.06 X10^3/uL (2.7-7.7); Neutrophil % 77.8 % (47-70); POSITIVE MORPHOLOGY YES; Platelet Count 158 K/mm3 (150-450); RBC Distribution Width CV 14.7 % (11.6-14.6); RBC Distribution Width SD 54.8 fl (35.1-43.9); White Blood Count 3.9 K/mm3 (4.4-11.0)
[2020-05-03 18:18] LABS: Differential Indicated SCAN CRITERIA MET
[2020-05-03 18:35] LABS: Prothrombin Time (Protime)PT. 36.6 SECONDS (11.7-14.9)
[2020-05-03 18:51] LABS: International Normalized Ratio 3.7
[2020-05-03 18:52] LABS: ALB/GLOB Ratio 0.9 RATIO (0.9-2.4); AST(SGOT) 54 U/L (15-37); Alanine Aminotransfer ALT/SGPT 40 U/L (13-56); Albumin, Serum 3.3 g/dL (3.2-5.0); Alkaline Phosphatase 67 U/L (45-117); Anion Gap 10 (5-15); BUN 13 mg/dL (7-18); BUN/Creat Ratio 14.8 RATIO (10-20); Calcium,Total 8.1 mg/dL (8.5-10.1); Chloride 101 mmol/L (98-107); Creatinine, Serum 0.88 mg/dL (0.55-1.02); EST Glomerular Filtration Rate 68 mL/min (>60); Est Glom Filt Rate - Afr Amer 82 mL/min (>60); Free T3 1.3 pg/mL (2.18-3.98); Globulin 3.6 g/dL (2.2-4.2); Glucose 90 mg/dL (74-106); LDH 449 U/L (84-246); Potassium 3.2 mmol/L (3.5-5.1); Protein, Total 6.9 g/dL (6.4-8.2); Sodium Level 135 mmol/L (136-145); Thyroid Stim Hormone (TSH) 7.31 uIU/mL (0.358-3.74)
[2020-05-03 18:53] LABS: Erythrocyte Sedimentation Rate 14 mm/hr (0-30)
[2020-05-03 19:24] LABS: Reactive Lymphocyte 1+
== END ==
PROVIDERS: PCP Family Medicine; Referring Provider Family Medicine; Visit Provider Family Medicine
DX: E03.9 Hypothyroidism, unspecified (principal); D68.2 Hereditary deficiency of other clotting factors; Z79.01 Long term (current) use of anticoagulants; Z86.718 Personal history of other venous thrombosis and embolism; Z51.81 Encounter for therapeutic drug level monitoring; M79.10 Myalgia, unspecified site
CPT/HCPCS: 36415; 80053; 83615; 83735; 84439; 84443; 84481; 85025; 85610; 85652; 86140

== ENCOUNTER 2020-05-04 20:05 | Inpatient (IN) | payer MEDICARE, OTHER, SELFPAY ==
[2020-03-09 10:34] VITALS: BMI 28.8
[2020-05-04 20:07] VITALS: BP 133/74; PULSE 121; RESP 18; TEMP 36.6; O2SAT 86; BMI 27.8
--- NOTE | 2020-05-04 20:44 | CT_ITS ---
STUDY: CT BRAIN WITHOUT CONTRAST REASON FOR EXAM: Female, 70 years old. ALTERED MENTAL STATUS,DIFFICULTY WALKING,PT ON BLOOD THINNERS -- HX:CVA,HTN,FACTOR 5 LEIDEN,THYROID CANCER RADIATION DOSAGE (If Supplied By Facility): CTDIvol = ( 44.99 ) mGy, DLP = ( 796.11 ) mGycm TECHNIQUE: Transaxial CT imaging of the brain was performed without administration of intravenous contrast material. Individualized dose optimization techniques were used for this CT. COMPARISON: No relevant priors. FINDINGS: Normal soft tissue structures. Normal calvarium. Mild cortical atrophy and periventricular white matter ischemic changes.. Normal basal ganglia and thalami. Normal brainstem. Normal cerebellum. There is no intracranial hemorrhage. There are no findings of an acute ischemic infarction. Normal visualized paranasal sinuses. CT/Brain/Head without Contrast IMPRESSION: Mild cortical atrophy and periventricular white matter ischemic change.. No evidence for acute bleed. If concern for acute infarct MRI recommended Electronically Signed: Mario Schafer MD at 21:42 EST , Service support ,
--- NOTE | 2020-05-04 20:45 | ED.DCSUM_ITS ---
History of Present Illness Chief Complaint: General Illness Detail of Chief Complaint: weakness Informant: Patient Onset: - - unk Timing: Continuous Quality: weak Location: all over Current Severity: Moderate Maximum Severity: Moderate Worsened by: nothing Relieved by: nothing Associated Symptoms: low back pain, myalgias Narrative: Patient is a little disoriented, she does not know how long her symptoms have been present, but states she had kyphoplasty for compression fracture around 2 months ago and it helped, but her low back is been bothering her again and she has no idea for how long. She states she did see her doctor, she had some blood work obtained yesterday that showed something wrong with her liver enzymes, and she has a CT scan of her lumbar spine scheduled for 05/09 to make sure she does not have an infected kyphoplasty. She denies any fevers, chills, coughing, chest discomfort, shortness of breath even with exertion, loss of taste or smell, headaches, vision changes. She does admit to myalgias. She has just been feeling very weak is her main complaint. Past Medical History - Allergies and Home Meds Allergies/Adverse Reactions: Allergies Iodinated Contrast Media [Iodinated Contrast Media - IV Dye] Allergy (Verified 05/04/20 20:09) Hives levofloxacin Adverse Reaction (Verified 05/04/20 20:09) abdominal pain naproxen [From Naprosyn] Adverse Reaction (Verified 05/04/20 20:09) Nausea Primary Care Physician: Adelina Alvarenga DO [Primary Care Provider] - Surgical History: - - R breast lumpectomy, anal fissure surgery, thyroid resection, R carpal tunnel surgery. Smoking Status: Never smoker Review of Systems ROS: Unable to Obtain - limited due to mild disorientation; available as below General: Reports: Malaise. Denies: Chills, Fever Eyes: Denies: Visual changes - bilaterally, Diplopia ENT: Denies: Bilateral ear pain, Rhinorrhea, Sore throat Cardiovascular: Denies: Chest pain, Palpitations Respiratory: Denies: Dyspnea, Cough, Dyspnea on exertion, Orthopnea Gastrointestinal: Reports: - - poor appetite. Denies: Abdominal pain, Nausea, Vomiting, Diarrhea, Melena, Hematochezia Genitourinary: Denies: Dysuria, Hematuria, Frequency Musculoskeletal: Reports: Myalgias, Back pain. Denies: Neck pain, Swelling Skin: Denies: Rash - and no pruritis, Wounds Neurological: Denies: Headache, Weakness, Numbness Physical Exam Vital Signs/Narrative: Vital Signs Temp Pulse Resp BP Pulse Ox 05/04/20 20:07 97.9 F 121 H 18 133/74 H 86 Inital Vital Signs reviewed: Yes General: Well nourished, Well developed, No Acute Distress Head: Normocephalic, Atraumatic Eyes: Perrl, EOMI ENT: Moist mucous membranes, No rhinorrhea. Negative for: Sinus tenderness Neck: Supple, Nontender, No lymphadenopathy Cardiovascular: Regular rate, Regular rhythm, No murmurs, Tachycardia Respiratory: No distress, CTA bilaterally, Chest nontender Abdomen: Soft, Nontender, Nondistended, Normal bowel sounds Back: Nontender - lumbar pain not reproducible on palpation; nml ROM, able to sit up w/o assistance or significant discomfort, Normal Inspection. Negative for: CVA tenderness Extremities: Nontender, No edema Skin: Normal color, No rash, No Trauma Neurological: Alert, Oriented x3 - Although initially said May 2021, she was redirectable to the year of 2019, Cranial nerves II-XII grossly intact, Normal Strength - Symmetrically mildly weak diffusely, Normal Sensation, Normal DTR - w/ downgoing toes bilat and no clonus Psychological: Normal affect, Normal Mood Diagnostic/Tx/Re-eval Impressions Brain CT 05/04/20 20:44 IMPRESSION: Mild cortical atrophy and periventricular white matter ischemic change.. No evidence for acute bleed. If concern for acute infarct MRI recommended Electronically Signed: Mario Schafer MD at 21:42 EST , Service support , Chest X-Ray 05/04/20 21:10 IMPRESSION: Findings suspicious for Covid 19 pneumonia more severe in the lower lobes. Clinical correlation recommended Electronically Signed: Mario Schafer MD at 21:40 EST , Service support , 05/04/20 20:44 CT Brain [Brain/Head without Contrast] [CT] Stat 05/04/20 21:10 Chest 1 View (Portable) [RAD] Stat 05/04/20 20:50 Mucosa - Nose SARS-CoV-2 Antigen (Rapid) - Final - NEGATIVE Laboratory Results 05/04/20 05/04/20 05/04/20 20:30 20:30 20:30 WBC 5.5 RBC 3.97 L Hgb 13.2 Hct 39.0 MCV 98.2 MCH 33.2 H MCHC 33.8 RDW Std Deviation 52.0 H RDW Coeff of Collin 14.3 Plt Count 204 MPV 10.3 Immature Gran % (Auto) 0.500 Neut % (Auto) 81.4 H Lymph % (Auto) 14.5 L [place] % (Auto) 3.4 Eos % (Auto) 0.0 Baso % (Auto) 0.2 Absolute Neuts (auto) 4.5 Absolute Lymphs (auto) 0.80 L Nucleated RBC % 0 Platelet Estimate ADEQUATE RBC Morphology N CHROM Anisocytosis RARE Macrocytosis RARE Sodium 138 Potassium 3.3 L Chloride 103 Carbon Dioxide 26.0 Anion Gap 9 BUN 13 Creatinine 0.85 Estim Creat Clear Calc 61.73 Est GFR (MDRD) Af Amer 85 Est GFR (MDRD) Non-Af 70 BUN/Creatinine Ratio 15.3 Glucose 92 Lactic Acid 1.2 Calcium 8.1 L Total Bilirubin 0.60 AST 56 H ALT 41 Alkaline Phosphatase 67 Troponin I < 0.015 Total Protein 6.9 Albumin 3.2 Globulin 3.7 Albumin/Globulin Ratio 0.9 - Rhythm Strip Rhythm Strip: Sinus Tach Rate: 120 Ectopy: None - Medical Decision Making Patient is noticed to be hypoxic 86% on room air. Placed her on a nasal cannula and she came up to 94%. I reviewed her labs from yesterday. They reveal leukopenia, elevated LDH, elevated CRP, normal ESR, barely elevated AST, normal platelets, and the rest of her tests were unremarkable. This could all occur in context of COVID-19, the patient presents during a significant surge in cases during the pandemic, when prevalence is relatively high in the local area. She has not yet had a test for this or been diagnosed with COVID-19. History with regards to this and other things as noted in the HPI is relatively limited, however. We did do a rapid test, and it returned negative although the chest x- ray showed bibasilar infiltrates which is commonly seen with COVID-19. Started on IV antibiotics and given her weakness and oxygen requirement, will admit. At this time, there are no abnormal neurologic exam findings to suggest an epidural abscess, nor is there a leukocytosis which commonly accompanies those. Therefore, there is no indication for a STAT MRI of the spine to be done emergently at this time. Per hospitalist, will repeat COVID test here in ER w/ PCR test prior to admission, given high pretest probability and negative rapid antigen test. ED Disposition - Plan for ED Patient: Disposition: Acute Care [facility] Diagnosis: Pneumonia, Hypoxemia Referrals: Adelina Alvarenga DO [Primary Care Provider] -
--- NOTE | 2020-05-04 20:48 | EKG12_ITS ---
Test Reason : GEN ILL Blood Pressure : / mmHG Vent. Rate : 109 BPM Atrial Rate : 109 BPM P-R Int : 148 ms QRS Dur : 080 ms QT Int : 304 ms P-R-T Axes : 035 006 004 degrees QTc Int : 409 ms Sinus tachycardia Otherwise normal ECG Confirmed by RAPHAEL ROSARIO, PJ ([id number]), index editor JEN SIFUENTES ([id number]) on 05/08/2020 1:07:19 PM Referred By: MARIANO Confirmed By:PJ LIM MD
[2020-05-04 21:02] LABS: Absolute Neutrophil Count 4.5 X10^3/uL (2.0-7.7); Basophil# 0.01 X10^3/uL; Basophil% 0.2 % (0-1); Hemoglobin 13.2 g/dL (12.0-15.0); Lymphocyte % 14.5 % (19-41); Mean Corp Hgb Conc 33.8 g/dL (32-36); Mean Corpuscular Hgb 33.2 pg (27.0-32.0); Mean Corpuscular Volume 98.2 fL (81-99); Mean Platelet Vol. 10.3 fl (6.2-12.0); Monocyte# 0.19 X10^3/uL; Monocyte% 3.4 % (0-10); NRBC Flagged by Analyzer 0 % (0-5); Neutrophil % 81.4 % (47-70); POSITIVE MORPHOLOGY YES; Platelet Count 204 K/mm3 (150-450); RBC Distribution Width CV 14.3 % (11.6-14.6); Red Blood Count 3.97 M/mm3 (4.2-5.4); White Blood Count 5.5 K/mm3 (4.4-11.0)
[2020-05-04 21:04] LABS: Differential Indicated SCAN CRITERIA MET
[2020-05-04 21:07] VITALS: BP 106/65; PULSE 107; RESP 26; O2SAT 95
--- NOTE | 2020-05-04 21:10 | RAD_ITS ---
STUDY: X-RAY CHEST REASON FOR EXAM: Female, 70 years old. GENERAL ILLNESS TECHNIQUE: AP portable COMPARISON: None. FINDINGS: Less than optimal inspiratory effort is seen.. There is focal interstitial thickening in the lower lobes bilaterally as well as the right upper lobe with patchy areas of increased density suspicious for atypical viral pneumonia. There is no demonstrated pleural abnormality. Normal size heart. Normal mediastinum and dolores. Normal visualized pulmonary arteries. Normal visualized aortic arch and descending thoracic aorta. Normal visualized thoracic spine. Normal visualized ribs, clavicles, and shoulders. There is no demonstrated abnormality of the visualized soft tissue structures of the upper abdomen. RAD/Chest 1 View (Portable) IMPRESSION: Findings suspicious for Covid 19 pneumonia more severe in the lower lobes. Clinical correlation recommended Electronically Signed: Mario Schafer MD at 21:40 EST , Service support ,
[2020-05-04] MEDS: 0.9% Normal Saline 1,000 ML 125 ML IV (21:14)
[2020-05-04 21:22] LABS: ALB/GLOB Ratio 0.9 RATIO (0.9-2.4); AST(SGOT) 56 U/L (15-37); Alanine Aminotransfer ALT/SGPT 41 U/L (13-56); Albumin, Serum 3.2 g/dL (3.2-5.0); Alkaline Phosphatase 67 U/L (45-117); Anion Gap 9 (5-15); BUN 13 mg/dL (7-18); BUN/Creat Ratio 15.3 RATIO (10-20); Calcium,Total 8.1 mg/dL (8.5-10.1); Chloride 103 mmol/L (98-107); Creatinine, Serum 0.85 mg/dL (0.55-1.02); EST Glomerular Filtration Rate 70 mL/min (>60); Est Glom Filt Rate - Afr Amer 85 mL/min (>60); Estimated Creatinine Clearance 61.73 ml/min; Globulin 3.7 g/dL (2.2-4.2); Glucose 92 mg/dL (74-106); Potassium 3.3 mmol/L (3.5-5.1); Protein, Total 6.9 g/dL (6.4-8.2); Sodium Level 138 mmol/L (136-145)
[2020-05-04 21:24] LABS: Anisocytosis RARE; Macrocytosis RARE; Platelet Estimate ADEQUATE (ADEQ); Red Cell Morphology N CHROM NORMAL (NORM C&C)
[2020-05-04 21:29] LABS: Lactic Acid 1.2 mmol/L (0.4-1.9)
[2020-05-04 22:43] VITALS: BP 106/79; PULSE 106; RESP 20; O2SAT 93
[2020-05-04 23:00] VITALS: BP 113/67; PULSE 105; RESP 26; O2SAT 94
--- NOTE | 2020-05-04 23:39 | PCM.HP.STD ---
Problem List (1) Pneumonia Status: Acute (2) Hypoxemia Status: Acute (3) Essential (primary) hypertension Status: Chronic (4) Pure hypercholesterolemia Status: Chronic (5) Palpitations Status: Chronic (6) History of left heart catheterization Status: Chronic (7) Atherosclerotic heart disease of [place] coronary artery without angina pectoris Status: Chronic Qualifiers: [place] vs. transplanted heart: [place] heart Qualified Code(s): I25.10 - Atherosclerotic heart disease of [place] coronary artery without angina pectoris (8) History of deep vein thrombophlebitis of lower extremity Status: Chronic Comment: Hx of RLE DVT X 2 (9) Dyspnea on exertion Status: Chronic (10) Atypical chest pain Status: Chronic (11) Factor V deficiency Status: Chronic (12) Hypothyroidism (acquired) Status: Chronic (13) Bicuspid aortic valve Status: Chronic (14) Chronic back pain Status: Chronic (15) History of thyroid cancer Status: Chronic (16) GERD (gastroesophageal reflux disease) Status: Chronic (17) History of TIA (transient ischemic attack) Status: Chronic (18) Vertigo Status: Chronic History of Present Illness Date of Admission: 05/04/20 Chief Complaint: malaise The patient is a 70 year old F with a significant history of hypothyroidism; hypertension; factor V Leiden deficiency; and DVT who presents emergency department with malaise x3 weeks. Associated event symptoms is shakiness; weakness and fatigue. A feta patient has a worsening of her chronic lower back pain x2 days. Reportedly in March 2020 she had a kyphoplasty secondary to compression fracture. Reportedly she saw her PCP and had liver enzymes were noted to be elevated. Past Medical History Past Medical History (Chronic Problems): Chronic Problems (Last Reviewed 05/05/20 @ 01:[address] Hal Quinonez MD) Essential (primary) hypertension (Chronic) Pure hypercholesterolemia (Chronic) Palpitations (Chronic) History of left heart catheterization (Chronic ~11/2007) Atherosclerotic heart disease of [place] coronary artery without angina pectoris (Chronic) History of deep vein thrombophlebitis of lower extremity (Chronic) Hx of RLE DVT X 2 Dyspnea on exertion (Chronic) Atypical chest pain (Chronic) Factor V deficiency (Chronic) Hypothyroidism (acquired) (Chronic) Bicuspid aortic valve (Chronic) Chronic back pain (Chronic) History of thyroid cancer (Chronic) GERD (gastroesophageal reflux disease) (Chronic) History of TIA (transient ischemic attack) (Chronic) Vertigo (Chronic) Medical History: Medical History (Last Reviewed 05/05/20 @ 01:[address] Hal Quinonez MD) Essential (primary) hypertension (Chronic) I10 Pure hypercholesterolemia (Chronic) E78.00 Palpitations (Chronic) R00.2 Atherosclerotic heart disease of [place] coronary artery without angina pectoris (Chronic) I25.10 History of deep vein thrombophlebitis of lower extremity (Chronic) Z86.72 Hx of RLE DVT X 2 Dyspnea on exertion (Chronic) R06.09 Atypical chest pain (Chronic) R07.89 Factor V deficiency (Chronic) D68.2 Hypothyroidism (acquired) (Chronic) E03.9 Bicuspid aortic valve (Chronic) Q23.1 Chronic back pain (Chronic) M54.9, G89.29 History of thyroid cancer (Chronic) Z85.850 GERD (gastroesophageal reflux disease) (Chronic) K21.9 History of TIA (transient ischemic attack) (Chronic) Vertigo (Chronic) R42 Arthritis M19.90 Stroke I63.9 HTN (hypertension) I10 Allergies Iodinated Contrast Media [Iodinated Contrast Media - IV Dye] Allergy (Verified 05/04/20 20:09) Hives levofloxacin Adverse Reaction (Verified 05/04/20 20:09) abdominal pain naproxen [From Naprosyn] Adverse Reaction (Verified 05/04/20 20:09) Nausea Home Medications: Ambulatory Orders Medication Instructions Recorded Tizanidine HCl [Zanaflex] 4 mg PO BID 10/28/13 hydrocodone 5 mg-acetaminophen 325 1 tab PO PRN PRN tab 02/26/18 mg tablet liothyronine 5 mcg tablet 5 mcg PO DAILY 03/09/20 Atenolol 12.5 mg PO DAILY 05/04/20 Atenolol [Tenormin (beta dragan)] 25 mg PO DAILY 05/04/20 Levothyroxine Sodium 75 mcg PO DAILY 05/04/20 Multivitamin 1 ea PO DAILY 05/04/20 Omeprazole [Prilosec] 20 mg PO BID 05/04/20 Potassium Chloride 20 meq PO BID 05/04/20 Prednisone 20 mg PO 05/04/20 Simvastatin 40 mg PO QHS 05/04/20 Warfarin Sodium 3 mg PO DAILY 05/04/20 Surgical History: Surgical History (Last Reviewed 05/05/20 @ 01:[address] Hal Quinonez MD) History of left heart catheterization (Chronic) Onset Date: ~11/2007 Z98.890 History of thyroidectomy E89.0 History of cholecystectomy Z98.890, Z90.49 Surgical History: cholecystectomy, - - R breast lumpectomy, anal fissure surgery, thyroid resection, R carpal tunnel surgery. Kyphoplasty. 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 Hal Qiunonez MD) Father CAD (coronary artery disease) Arthritis Myocardial infarction CVA (cerebral vascular accident) Mother Arthritis Hypertension Sister Arthritis Aunt Breast cancer Review of Systems Constitutional: Reports: Malaise, Weakness, Fatigue. Denies: Chills, Fever, Weight Change HEENT: Denies: Head Aches, Sinus Congestion, Sinus Drainage Cardiovascular: Denies: Chest Pain, Palpitations Respiratory: Denies: Cough, Shortness of breath at rest, Sputum production Gastrointestinal: Denies: Abdominal Pain, Nausea, Vomiting Genitourinary: Denies: Dysuria Musculoskeletal: Reports: Muscle pain. Denies: Joint Pain, Joint Tenderness Skin: Denies: Rash, Wounds Neurological: Denies: Numbness, Tingling, Focal weakness Psychiatric: Denies: Anxiety, Depression, Homicidal Ideations, Suicidal Ideations Hematologic/ Lymphatic: Denies: Easy Bruising, Easy Bleeding VTE Information - Inpt Only VTE Present on Admission: No VTE Mechan Device Prophylaxis: None VTE Pharm Prophylaxis ordered?: No Reason prophylaxis not ordered:: Treatment Not Indicated - Home Coumadin continued Patient Problems: Active and Suspected Problems (Last Reviewed 05/05/20 @ 01:[address] Hal Quinonez MD) Pneumonia (Acute) Hypoxemia (Acute) - Physical Exam Vitals/I&O's: Vital Signs Temp Pulse Resp BP Pulse Ox 97.9 F 106 H 20 H 106/79 93 05/04/20 20:07 05/04/20 22:43 05/04/20 22:43 05/04/20 22:43 05/04/20 22:43 Oxygen Flow Rate (L/min) 2 Oxygen Delivery Method Nasal Cannula Weight: 62.596 kg Body Mass Index (BMI) 27.8 General: Alert, Oriented x3, Cooperative HEENT: Atraumatic, PERRLA, EOMI, Normocephalic Neck: Supple, No JVD, Negative Carotid Bruits Lungs: Rales - Left base, Tachypneic Cardiovascular: Normal S1, Normal S2, No murmurs, Tachycardic Abdomen: Bowel Sounds Present, Soft, Non Tender Extremities: No edema, Capillary Refill Less than 3 Seconds Skin: No rashes, No breakdown Musculoskeletal: No Tenderness to Palpation of Joints or Extremities Neurological: Cranial nerves II-XII grossly intact Psych/Mental Status: Flat Affect, Depressed Microbiology Past 72 Hours 05/04/20 20:50 Mucosa - Nose SARS-CoV-2 Antigen (Rapid) - Final Laboratory Results 05/04/20 20:30: WBC 5.5, RBC 3.97 L, Hgb 13.2, Hct 39.0, MCV 98.2, MCH 33.2 H, MCHC 33.8, RDW Std Deviation 52.0 H, RDW Coeff of Collin 14.3, Plt Count 204, MPV 10.3, Immature Gran % (Auto) 0.500, Neut % (Auto) 81.4 H, Lymph % (Auto) 14.5 L, [place] % (Auto) 3.4, Eos % (Auto) 0.0, Baso % (Auto) 0.2, Absolute Neuts (auto) 4.5, Absolute Lymphs (auto) 0.80 L, Nucleated RBC % 0, Platelet Estimate ADEQUATE, RBC Morphology N CHROM, Anisocytosis RARE, Macrocytosis RARE 05/04/20 20:30: Sodium 138, Potassium 3.3 L, Chloride 103, Carbon Dioxide 26.0, Anion Gap 9, BUN 13, Creatinine 0.85, Estim Creat Clear Calc 61.73, Est GFR (MDRD) Af Amer 85, Est GFR (MDRD) Non-Af 70, BUN/Creatinine Ratio 15.3, Glucose 92, Calcium 8.1 L, Total Bilirubin 0.60, AST 56 H, ALT 41, Alkaline Phosphatase 67, Troponin I < 0.015, Total Protein 6.9, Albumin 3.2, Globulin 3.7, Albumin/Globulin Ratio 0.9 05/04/20 20:30: Lactic Acid 1.2 Current Medications Sodium Chloride () 1,000 mls @ 125 mls/hr IV .Q8H PREM Last Admin: 05/04/20 21:14 Dose: 125 mls/hr Documented by: Azithromycin 500 mg/ Dextrose 255 mls @ 250 mls/hr IV X1 ONE Stop: 05/04/20 23:52 Assessment/Plan All Active Problems (Last Reviewed 05/05/20 @ 01:[address] Hal Quinonez MD) Pneumonia (Acute) Hypoxemia (Acute) Acute hypoxemic respiratory insufficiency secondary to SARS COVID-19 infection. Oxygen saturation 86% on room air and required supplemental oxygenation. Supplemental oxygenation continued Impression of chest x-ray by radiologist: Findings suspicious for COVID-19 pneumonia most severe in the lower lobes. Actual chest x-ray image was independently interpreted. I agree with radiologist interpretation. Rapid Covid antigen was negative. Ceftriaxone and azithromycin ordered at the emergency department. Discussed emergent department to get a Covid PCR which returned positive. Procalcitonin, strep pneumonia antigen and Legionella urine antigen ordered. . Decadron IV ordered and then p.o. daily. AST is mildly elevated. Estimated GFR is more than 30. Will begin patient on remdesivir. CMP in a.m. Consider infectious disease consult. Tylenol as needed for fever ordered. Hypothyroidism Because of his symptoms of weakness and fatigue which could also be due to COVID-19 we will check TSH. Levothyroxine and liothyronine continued Lower back pain Reportedly patient has a CT of her back as scheduled for 05/09/2020 outpatient. [place] as needed continued Tylenol as needed [place] continued Factor V Leiden deficiency/DVT Warfarin continued. Check PT/INR. Hypertension Blood pressure is stable Atenolol continue Trend blood pressure and adjust blood pressure medications as necessary. DVT prophylaxis Warfarin continued Inpatient E&M: [id number] Init Hosp L3
[2020-05-04] MEDS: Ceftriaxone 1 GM/50 ML BAG IV (23:58)
[2020-05-05] VITALS (16 sets, daily range): BP systolic 86–119; BP diastolic 57–71; PULSE 70–106; RESP 16–28; TEMP 36.4–37.7; O2SAT 92–97; BMI 27.5; BMI 27.6
[2020-05-05 00:55] LABS: Probe Check PASS; Specimen Processing Control PASS
[2020-05-05 01:48] LABS: D-Dimer Quantitative (DVT/PE) 0.36 FEU/ug/m (0.27-0.49)
[2020-05-05] MEDS: dexAMETHasone 10 MG/ML Vial 6 MG IV (02:47)
[2020-05-05 03:04] LABS: Procalcitonin 0.18 ng/mL (0.00-0.09)
[2020-05-05 08:32] LABS: Absolute Lymphocyte Count 0.37 X10^3/uL (0.83-4.51); Absolute Neutrophil Count 5.4 X10^3/uL (2.0-7.7); Basophil# 0.01 X10^3/uL; Basophil% 0.2 % (0-1); Hematocrit 35.2 % (37-47); Hemoglobin 11.5 g/dL (12.0-15.0); Lymphocyte # 0.37 X10^3/ul (4.0); Lymphocyte % 6.2 % (19-41); Mean Corp Hgb Conc 32.7 g/dL (32-36); Mean Corpuscular Hgb 32.5 pg (27.0-32.0); Mean Corpuscular Volume 99.4 fL (81-99); Mean Platelet Vol. 9.7 fl (6.2-12.0); Monocyte# 0.18 X10^3/uL; NRBC Flagged by Analyzer 0 % (0-5); Neutrophil % 90.1 % (47-70); POSITIVE DIFFERENTIAL YES; POSITIVE MORPHOLOGY YES; Platelet Count 194 K/mm3 (150-450); RBC Distribution Width CV 14.4 % (11.6-14.6); RBC Distribution Width SD 53.6 fl (35.1-43.9); Red Blood Count 3.54 M/mm3 (4.2-5.4)
[2020-05-05 08:33] LABS: Differential Indicated SCAN CRITERIA MET
[2020-05-05] MEDS: Pantoprazole Sodium 20 MG Tablet PO ×2 (08:53→21:02)
[2020-05-05 08:54] LABS: ALB/GLOB Ratio 0.8 RATIO (0.9-2.4); AST(SGOT) 46 U/L (15-37); Alanine Aminotransfer ALT/SGPT 35 U/L (13-56); Albumin, Serum 2.5 g/dL (3.2-5.0); Alkaline Phosphatase 60 U/L (45-117); Anion Gap 7 (5-15); BUN 10 mg/dL (7-18); Calcium,Total 7.3 mg/dL (8.5-10.1); Chloride 111 mmol/L (98-107); Creatinine, Serum 0.53 mg/dL (0.55-1.02); EST Glomerular Filtration Rate 123 mL/min (>60); Est Glom Filt Rate - Afr Amer 148 mL/min (>60); Estimated Creatinine Clearance 51.97 ml/min; Globulin 3.3 g/dL (2.2-4.2); Glucose 124 mg/dL (74-106); Potassium 3.7 mmol/L (3.5-5.1); Protein, Total 5.8 g/dL (6.4-8.2); Prothrombin Time (Protime)PT. 58.7 SECONDS (11.7-14.9); Sodium Level 140 mmol/L (136-145); Thyroid Stim Hormone (TSH) 2.27 uIU/mL (0.358-3.74)
[2020-05-05] MEDS: Enoxaparin 30 MG/0.3 ML Syringe SC (08:54)
[2020-05-05] MEDS: Multivitamins,Therapeutic Tablet 1 TABLET PO (08:54)
[2020-05-05] MEDS: tiZANidine HCl 2 MG Tablet 4 MG PO (08:56)
[2020-05-05 09:03] LABS: International Normalized Ratio 6.7
[2020-05-05] MEDS: 0.9% Normal Saline 1,000 ML 125 ML IV (09:03)
--- NOTE | 2020-05-05 09:21 | NURSING ---
nurses to room- pt with staring at nurses- not verbally responding to questions. just blank staring and will look towards nurse. Primary RN starting [facility]- stroke team iniated
--- NOTE | 2020-05-05 09:23 | CT_ITS ---
STUDY: CT HEAD STROKE PROTOCOL W/O CONTRAST INJECTION REASON FOR EXAM: Female, 70 years old. STROKE, HX TIA RADIATION DOSAGE (If Supplied By Facility): CTDIvol = ( 44.99 ) mGy, DLP = ( 796.11 ) mGycm TECHNIQUE: Transaxial CT imaging of the brain was performed without administration of intravenous contrast material. Individualized dose optimization techniques were used for this CT. COMPARISON: Comparison is made with prior examination dated 05/04/2020. FINDINGS: Normal soft tissue structures. Normal calvarium. There is mild cerebral atrophy with widening of the extra-axial spaces and ventricular dilatation. Normal white matter tracts of the cerebral hemispheres. Normal basal ganglia and thalami. Normal brainstem. Normal cerebellum. There is no intracranial hemorrhage. There are no findings of an acute ischemic infarction. Normal visualized paranasal sinuses. ASPECT score: 0 CT/STROKE Brain/Head without Cont IMPRESSION: Chronic involutional changes of the brain. N.B. : The above information has been verbally conveyed by Efrain Klein to ANDREY ISLAS on 05/05/2020 09:41:34 (ET). Electronically Signed: Efrain Klein, at 9:42 EST , Service support ,
--- NOTE | 2020-05-05 09:28 | NURSING ---
to CT per bed. Dr Pearl in at bedside evaluating pt as well.
[2020-05-05] MEDS: 0.9% Saline Lock 10 ML Syringe IV (09:30)
[2020-05-05 09:41] LABS: Bedside Glucose 125 mg/dL (70-110)
--- NOTE | 2020-05-05 09:51 | MRI_ITS ---
STUDY: MRI BRAIN WITHOUT CONTRAST REASON FOR EXAM: Female, 70 years old. Change in mental status, lethargic, COVID +, Hx TIA and small vessel dz. TECHNIQUE: Standardized multiplanar fat and water weighted pulse sequences were obtained. COMPARISON: CT earlier today, MRI 08/20/2011 FINDINGS: There is mild cerebral atrophy with widening of the extra-axial spaces and ventricular dilatation. There are a limited number of small white matter hyperintensities, distributed throughout the deep white matter tracts of the cerebral hemispheres, consistent with mild chronic white matter ischemic changes. There is no evidence for recent intracranial ischemia or other cause of cytotoxic edema on diffusion weighted imaging (DWI). Normal T2* images of the brain without demonstrated susceptibility artifact. There is no demonstrated hemosiderin stain. Normal bilateral basal ganglia. Normal thalami. There is no extra-axial fluid accumulation. Normal flow voids within the major intracranial circulation suggesting patency by spin echo criteria. Normal sella turcica, pituitary gland, infundibular stalk, optic chiasm and hypothalamus. Normal tectal plate and pineal gland. Normal midbrain, mackenzie and medulla. Normal cerebellum. Normal basal cisterns. Normal bilateral temporal bones. Normal bilateral internal auditory canals. No demonstrated orbital abnormality, within the constraints of a routine brain study. Normal visualized paranasal sinuses. Normal calvarium and skull base. Normal visualized soft tissue structures. Normal visualized upper cervical spine. MRI/Brain without Contrast IMPRESSION: Involutional changes of the brain, as described above. No acute infarct. Electronically Signed: Timmy Harris MD at 11:43 EST Tel , Service support ,
--- NOTE | 2020-05-05 09:51 | MRI_ITS ---
STUDY: MRA NECK WITHOUT CONTRAST REASON FOR EXAM: Female, 70 years old. Change in mental status, lethargic, COVID +, Hx TIA and small vessel dz. TECHNIQUE: Source images were obtained, MIPs were performed. The study was performed unenhanced. COMPARISON: None. FINDINGS: RIGHT CAROTID ARTERIES: Normal right common carotid artery (CCA). Normal right common carotid bulb. Normal origin of the right internal carotid (ICA) artery without a hemodynamically significant stenosis. Normal visualized cervical portion of the right internal carotid artery. Normal origin of the right external carotid artery (ECA). LEFT CAROTID ARTERIES: Normal left common carotid artery (CCA). Normal left common carotid bulb. Normal origin of the left internal carotid (ICA) artery without a hemodynamically significant stenosis. Normal visualized cervical portion of the left internal carotid artery. Normal origin of the left external carotid artery (ECA). VERTEBRAL ARTERIES: Normal antegrade flow within the bilateral vertebral artery without a hemodynamically significant stenosis. MRI/MRA Neck without Contrast IMPRESSION: Normal bilateral cervical carotid and vertebral arteries. Electronically Signed: Timmy Harris MD at 12:26 EST Tel , Service support ,
--- NOTE | 2020-05-05 10:17 | MRI_ITS ---
STUDY: MRA OF THE HEAD WITHOUT CONTRAST REASON FOR EXAM: Female, 70 years old. Change in mental status, lethargic, COVID +, Hx TIA and small vessel dz. TECHNIQUE: 3-D [id number] (TOF) imaging was performed with MIPs. The study was performed unenhanced. COMPARISON: None. FINDINGS: Normal bilateral petrous carotid arteries. Normal right cavernous carotid artery with a normal supraclinoid bifurcation. Normal left cavernous carotid artery with a normal supraclinoid bifurcation. Normal right A1 segments of the anterior cerebral artery. Normal left A1 segments of the anterior cerebral artery. Normal intact anterior communicating artery (ACOM). Normal bilateral A2 segments of the anterior cerebral arteries. Normal right M1 and M2 segments of the middle cerebral arteries, with a normal M1 bifurcation. Normal left M1 and M2 segments of the middle cerebral arteries, with a normal M1 bifurcation. Normal right posterior communicating artery (PCOM). Normal left posterior communicating artery (PCOM). Normal bilateral vertebral arteries. Normal basilar artery with a normal basilar bifurcation. The visualized bilateral superior cerebellar (SCA) arteries are normal. Normal bilateral P1, P2 and visualized P3 segments of the posterior cerebral arteries. There is no demonstrated aneurysm of the [place]. There is no major vessel occlusion or hemodynamically significant stenosis. There is no demonstrated abnormality of the visualized brain. MRI/MRA Head ONLY without Contrast IMPRESSION: Normal MRA of the head Electronically Signed: Timmy Harris MD at 11:44 EST Tel , Service support ,
--- NOTE | 2020-05-05 12:39 | NURSING ---
RN CM Assessment Coded stroke was called on patient d/t not verbally responding. Called patient Hoang Vidal to complete initial RNCM assessment. Introduced role of RN CM to patient.? Able?to participate in RN CM Assessment. ?Care providers, pharmacy, and demographics verified. Admit Dx: Acute Hypoxemic Resp Insufficiency Re-Admit: No Barriers/Issues: None. 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 Takes care of her 97yo mother and grandchildren. Patient has been retired for a couple years. Patient sister from [place] is currently visiting. Has many family members in health care industry and [employer] support system. PCP: Adelina Alvarenga Specialists: Cardio- Dr Hamilton (First appt July) used to see Dr Laureano. [facility] Insurance: [employer] A/B, [employer] Supp Rx Benefit:?Yes ?LNOK: Hoang Vidal LW/HPOA: Per completed both, aware this rfp writer does not see copy on file at [facility]. States HPOA is him and alternate is their dtr. Living Arrangements:?Lives with in a [facility], 2-3 steps to enter home ADL?s: Independent with ambulation and ADLs Transportation: Both patient and drive. to transport upon hospital DC DME: None HHC: None SNF: None Goal: Home and not sure of preference for DME or HHC company if needed. Patient is currently on 7L NC. Denies any issues or concerns with DC planning at this time. Aware RNCM will remain available for any emerging needs. DC PLAN: Home with possible home Oxygen, RNCM to f/u. S. YAIR Lazaro
[2020-05-05 12:46] LABS: Bedside Glucose 170 mg/dL (70-110)
--- NOTE | 2020-05-05 13:12 | PCM.PN.HOSP ---
Patient Problems: Active and Suspected Problems (Last Reviewed 05/05/20 @ 01:[address] Hal Quinonez MD) Pneumonia (Acute) Hypoxemia (Acute) Subjective: Patient seen and examined. She was admitted with a complaint of malaise for 3 weeks with associated shakiness, weakness and fatigue. He also had worsening of her chronic lower back pain for 2 days. She saw her PCP and liver enzymes were elevated so she was told to come to the ED. Covid test done on admission was positive. She was found to be saturating at 86% on room air and required supplemental oxygenation and chest x-ray showed suspicion for Covid pneumonia. Rapid antigen test was negative but PCR was positive. Patient seen this morning. Stroke alert was called as patient became less responsive and was not speaking in complete sentences. On examination, there was no focal deficit. Patient was able to talk to me but spoke few words. There was no focal deficits on examination and she moves all limbs spontaneously and cranial nerves II through XII were intact. She was sent for emergent CT and CT of the brain was negative for any intracranial bleed or ischemic infarct. Telestroke neurologist being done and reviewed patient and did not see any focal finding and said there was less suspicion for stroke per my discussion with her. MRI of the brain was also negative and MRA of the head and neck were also negative. Of note, patient's INR is 6.7. Patient was however administered 30 mg of Lovenox this morning. Lovenox discontinued, and coumadin is on hold. Vitals/I&O's: Vital Signs Temp Pulse Resp BP Pulse Ox 98.2 F 75 16 88/57 L 93 05/05/20 11:50 05/05/20 12:15 05/05/20 11:50 05/05/20 11:50 05/05/20 11:50 Oxygen Flow Rate (L/min) 10 Oxygen Delivery Method Nasal Cannula Weight: 136 lb 10.986 oz Body Mass Index (BMI) 27.5 Finger Stick Blood Glucose 124 Intake and Output for Last 24 Hours 05/03/20 05/04/20 05/05/20 23:59 23:59 23:59 Intake Total 343.75 / 343.75 1811.66 / 1811.66 Output Total 100 / 100 Balance 343.75 / 343.75 1711.66 / 1711.66 General: Alert, Cooperative, Lethargic, - - flat affect HEENT: Atraumatic, PERRLA, EOMI, Normocephalic Oral: Dry Mucosa Neck: Supple, No JVD, Negative Carotid Bruits Lungs: Clear to auscultation, Normal air movement, No rhonchi, No wheeze, No rales, Diminished Cardiovascular: Regular rate, Regular Rhythm, Normal S1, Normal S2, No murmurs Abdomen: Bowel Sounds Present, Soft, Non Tender, Non-Distended, No Hepato-splenomegaly Extremities: No clubbing, No cyanosis, No edema, Capillary Refill Less than 3 Seconds Skin: No rashes, No breakdown Musculoskeletal: No Tenderness to Palpation of Joints or Extremities Lymphatic: No Cervical, Supraclavicular, or Inguinal Adenopathy Neurological: Cranial nerves II-XII grossly intact, Motor Exam 5/5 strength throughout, - - no facial droop; NIHSS is 0 Psych/Mental Status: Flat Affect Microbiology Past 72 Hours 05/05/20 02:10 Mucosa - Nasopharyngeal Respiratory Panel (PCR) - Final 05/05/20 02:10 Urine, Clean Catch Legionella Antigen - Final 05/05/20 02:10 Urine, Clean Catch Streptococcus pneumoniae Antigen (M - Final 05/04/20 20:50 Mucosa - Nose SARS-CoV-2 Antigen (Rapid) - Final Laboratory Results 05/04/20 20:30: WBC 5.5, RBC 3.97 L, Hgb 13.2, Hct 39.0, MCV 98.2, MCH 33.2 H, MCHC 33.8, RDW Std Deviation 52.0 H, RDW Coeff of Collin 14.3, Plt Count 204, MPV 10.3, Immature Gran % (Auto) 0.500, Neut % (Auto) 81.4 H, Lymph % (Auto) 14.5 L, [place] % (Auto) 3.4, Eos % (Auto) 0.0, Baso % (Auto) 0.2, Absolute Neuts (auto) 4.5, Absolute Lymphs (auto) 0.80 L, Nucleated RBC % 0, Platelet Estimate ADEQUATE, RBC Morphology N CHROM, Anisocytosis RARE, Macrocytosis RARE 05/04/20 20:30: Sodium 138, Potassium 3.3 L, Chloride 103, Carbon Dioxide 26.0, Anion Gap 9, BUN 13, Creatinine 0.85, Estim Creat Clear Calc 61.73, Est GFR (MDRD) Af Amer 85, Est GFR (MDRD) Non-Af 70, BUN/Creatinine Ratio 15.3, Glucose 92, Calcium 8.1 L, Total Bilirubin 0.60, AST 56 H, ALT 41, Alkaline Phosphatase 67, Troponin I < 0.015, Total Protein 6.9, Albumin 3.2, Globulin 3.7, Albumin/Globulin Ratio 0.9 05/04/20 20:30: Lactic Acid 1.2 05/04/20 20:30: D-Dimer Quant (PE/DVT) 0.36 05/04/20 20:30: Procalcitonin 0.18 H 05/04/20 20:32: Procalcitonin Cancelled 05/04/20 23:45: COVID-19 (GINO) Positive 05/05/20 07:59: WBC 6.0, RBC 3.54 L, Hgb 11.5 L, Hct 35.2 L, MCV 99.4 H, MCH 32.5 H, MCHC 32.7, RDW Std Deviation 53.6 H, RDW Coeff of [place]lin 14.4, Plt Count 194, MPV 9.7, Immature Gran % (Auto) 0.500, Neut % (Auto) 90.1 H, Lymph % (Auto) 6.2 L, [place] % (Auto) 3.0, Eos % (Auto) 0.0, Baso % (Auto) 0.2, Absolute Neuts (auto) 5.4, Absolute Lymphs (auto) 0.37 L, Nucleated RBC % 0, Differential Comment COMMENT 05/05/20 07:59: PT 58.7 H, INR 6.7 H* 05/05/20 07:59: Sodium 140, Potassium 3.7, Chloride 111 H, Carbon Dioxide 22.0, Anion Gap 7, BUN 10, Creatinine 0.53 L, Estim Creat Clear Calc 51.97, Est GFR (MDRD) Af Amer 148, Est GFR (MDRD) Non-Af 123, BUN/Creatinine Ratio 19.0, Glucose 124 H, Calcium 7.3 L, Total Bilirubin 0.40, AST 46 H, ALT 35, Alkaline Phosphatase 60, Total Protein 5.8 L, Albumin 2.5 L, Globulin 3.3, Albumin/Globulin Ratio 0.8 L, TSH 2.27 12/04/20 09:27: POC Glucose 125 H 05/05/20 12:37: POC Glucose 170 H Diagnostic Data Chest X-Ray 05/04/20 21:10 IMPRESSION: Findings suspicious for Covid 19 pneumonia more severe in the lower lobes. Clinical correlation recommended Electronically Signed: Mario Schafer MD at 21:40 EST , Service support , Brain CT 05/05/20 09:23 IMPRESSION: Chronic involutional changes of the brain. N.B. : The above information has been verbally conveyed by Efrain Klein to ANDREY ISLAS on 05/05/2020 09:41:34 (ET). Electronically Signed: Efrain Klein, at 9:42 EST , Service support , ADDENDUM: 05/05/20 0949 IMPRESSION: Chronic involutional changes of the brain. N.B. : The above information has been verbally conveyed by Efrain Klein to ANDREY ISLAS on 05/05/2020 09:41:34 (ET). Electronically Signed: Efrain Klein, at 9:42 EST , Service support , Brain MRI 05/05/20 09:51 IMPRESSION: Involutional changes of the brain, as described above. No acute infarct. Electronically Signed: Timmy Harris MD at 11:43 EST Tel , Service support , Neck MRA 05/05/20 09:51 IMPRESSION: Normal bilateral cervical carotid and vertebral arteries. Electronically Signed: Timmy Harris MD at 12:26 EST Tel , Service support , Head MRA 05/05/20 10:17 IMPRESSION: Normal MRA of the head Electronically Signed: Timmy Harris MD at 11:44 EST Tel , Service support , Current Medications Acetaminophen (Acetaminophen 325 Mg Tablet) 650 mg PO Q6H PRN PRN PRN Reason: Pain Score 1-10/Temp > 100.7 F Hydrocodone Bitart/Acetaminophen (Hydrocodone Bitartrate/Apap 5/325 Tablet) 1 tablet PO Q6H PRN PRN PRN Reason: Pain 6-10/10 Atorvastatin Calcium (Atorvastatin Calcium 20 Mg Tablet) 20 mg PO QHS [facility] Dexamethasone (Dexamethasone 4 Mg Tablet) 6 mg PO DAILY@0800 [facility] Sodium Chloride () 1,000 mls @ 125 mls/hr IV .Q8H [facility] Last Infusion: 05/05/20 11:58 Dose: Infused Documented by: Sodium Chloride () 250 mls @ 15 mls/hr IV .[id number] PRN PRN Reason: Saline Flush Sodium Chloride () 250 mls @ 15 mls/hr IV .[id number] PRN PRN Reason: Additional IVPB Infusion Remdesivir 100 mg/ Sodium (Chloride) 250 mls @ 125 mls/hr IV DAILY@0800 [facility] Stop: 05/09/20 09:59 Levothyroxine Sodium (Levothyroxine 75 Mcg Tablet) 75 mcg PO DAILY@0600 [facility] Last Admin: 05/05/20 11:54 Dose: Not Given Documented by: Melatonin (Melatonin 3 Mg Tablet) 3 mg PO QHS PRN PRN PRN Reason: INSOMNIA Multivitamins (Multivitamins,Therapeutic Tablet) 1 tablet PO DAILY@0800 [facility] Last Admin: 05/05/20 08:54 Dose: 1 tablet Documented by: Ondansetron HCl (Ondansetron 4 Mg/2 Ml Vial) 4 mg IV Q8H PRN PRN PRN Reason: NAUSEA/VOMITING Pantoprazole Sodium (Pantoprazole Sodium 20 Mg Tablet) 20 mg PO 0800,2200 [facility] Last Admin: 05/05/20 08:53 Dose: 20 mg Documented by: Potassium Chloride (Potassium Chloride 20 Meq Tablet) 20 meq PO 0800,2200 [facility] Last Admin: 05/05/20 08:53 Dose: 20 meq Documented by: Sodium Chloride (0.9% Saline Lock 10 Ml Syringe) 10 - 40 ml IV UD PRN PRN Reason: SALINE FLUSH Last Admin: 05/05/20 09:30 Dose: 10 ml Documented by: Tizanidine HCl (Tizanidine Hcl 2 Mg Tablet) 4 mg PO 0800,2200 [facility] Last Admin: 05/05/20 08:56 Dose: 4 mg Documented by: STROKE Vital Signs/Narrative: Vital Signs Temp Pulse Resp BP Pulse Ox 05/05/20 12:15 75 05/05/20 11:50 98.2 F 81 16 88/57 L 93 05/05/20 09:30 70 18 103/67 97 Medical Necessity - Tobacco Use Smoking Status: Never smoker Assessment/Plan All Active Problems (Last Reviewed 05/05/20 @ 01:[address] Hal Quinonez MD) Pneumonia (Acute) Hypoxemia (Acute) #Acute hypoxic respiratory failure due to COVID 19 infection Patient on 10 L of oxygen at time of review. This was subsequently weaned down to 7 L of oxygen Chest x-ray was indicated with COVID-19 infection. On Decadron and remdesivir. consult ID to determine if she will benefit from convalescent plasma titrate oxygen to maintain sats >90% breathing treatment with bronchodilators #Acute metabolic encephalopathy stroke alert was called this morning o/a of patient suddenly becoming less responsive. There was no focal deficit. NIH stroke scale was 0. Stat CT of the brain done was negative and telestroke neurology reviewed patient. Per telestroke neurologist, low suspicion for stroke. MRI of hte brain and MRA of the head and neck were negative Patient not a tPA candidate o/a of INR of 6.7. Of note, patient was also administered lovenox this morning despite elevated INR. PT/OT on board. fall precautions check lipid panel, A1C and UA # Hypothyroidism: on synthroid. #Hypotension: BP this morning has been in the 70s and 80s systolic. Paitent is asymptomatic. BP meds held, and hyodrocodone and zanaflex also held patient given IV normal saline 500ml bolus, and will increase IVF rate to 150cc/hr fall precautions #COVID 19 infection: as above. #Chronic low back pain: norco on hold. On tylenol prn #SUpratherapeutic INR: coumadin on hold. INR of 6.7. No evidence of bleeding. Will monitor INR. #History of DVT and factor V Leiden deficiency: Coumadin on hold on account of elevated INR #Hypertension; BP meds held o/a of hypotension DVT prophylaxis: not indicated o/a of supratherapeutic INR Inpatient E&M: [id number] [facility] Hosp L3
[2020-05-05] MEDS: 0.9% Normal Saline 1,000 ML 150 ML IV ×2 (14:26→20:30)
[2020-05-05 15:09] LABS: Hemoglobin A1c 5.6 % (3.8-5.6)
[2020-05-05 15:37] LABS: Cholesterol 113 mg/dL (200); High Density Lipoprotein 53 mg/dL; Triglycerides 71 mg/dL; Very Low Density Lipoprotein 14 mg/dL (5-40)
--- NOTE | 2020-05-05 16:04 | CON.PCM_ITS ---
Problem List (1) COVID-19 Status: Acute Reason for Consult: covid Consulted by: Dr. Pearl History of Present Illness: The patient is a 70 year old F with 3 weeks of cough, dyspnea, loss of appetite, fatigue. at home has felt fine. No change in taste or smell. No n/v/d. No aches. Came to ED, admitted on dex and remdesivir. Feeling a little better today. Full ROS performed and neg except as noted above. - Medical History Past Medical History (Chronic Problems): Chronic Problems (Last Reviewed 05/05/20 @ 01:[address] Hal Quinonez MD) Essential (primary) hypertension (Chronic) Pure hypercholesterolemia (Chronic) Palpitations (Chronic) History of left heart catheterization (Chronic ~11/2007) Atherosclerotic heart disease of [place] coronary artery without angina pectoris (Chronic) History of deep vein thrombophlebitis of lower extremity (Chronic) Hx of RLE DVT X 2 Dyspnea on exertion (Chronic) Atypical chest pain (Chronic) Factor V deficiency (Chronic) Hypothyroidism (acquired) (Chronic) Bicuspid aortic valve (Chronic) Chronic back pain (Chronic) History of thyroid cancer (Chronic) GERD (gastroesophageal reflux disease) (Chronic) History of TIA (transient ischemic attack) (Chronic) Vertigo (Chronic) Allergies/Adverse Reactions: Allergies Iodinated Contrast Media [Iodinated Contrast Media - IV Dye] Allergy (Verified 05/04/20 20:09) Hives levofloxacin Adverse Reaction (Verified 05/04/20 20:09) abdominal pain naproxen [From Naprosyn] Adverse Reaction (Verified 05/04/20 20:09) Nausea Home Medications: Ambulatory Orders Medication Instructions Recorded Tizanidine HCl [Zanaflex] 4 mg PO BID 10/28/13 hydrocodone 5 mg-acetaminophen 325 1 tab PO PRN PRN tab 02/26/18 mg tablet liothyronine 5 mcg tablet 5 mcg PO DAILY 03/09/20 Atenolol 12.5 mg PO DAILY 05/04/20 Atenolol [Tenormin (beta dragan)] 25 mg PO DAILY 05/04/20 Levothyroxine Sodium 75 mcg PO DAILY 05/04/20 Multivitamin 1 ea PO DAILY 05/04/20 Omeprazole [Prilosec] 20 mg PO BID 05/04/20 Potassium Chloride 20 meq PO BID 05/04/20 Prednisone 20 mg PO 05/04/20 Simvastatin 40 mg PO QHS 05/04/20 Warfarin Sodium 3 mg PO DAILY 05/04/20 - Social History SMOKING STATUS:: Never smoker Vital Signs Temp Pulse Resp BP Pulse Ox 98.3 F 86 16 95/63 94 05/05/20 15:46 05/05/20 15:46 05/05/20 15:46 05/05/20 15:46 05/05/20 15:46 Oxygen Flow Rate (L/min) 7 Oxygen Delivery Method Nasal Cannula Weight: 62 kg Body Mass Index (BMI) 27.5 Finger Stick Blood Glucose 124 Microbiology Past 72 Hours 05/05/20 02:10 Respiratory Panel (PCR) - Final Mucosa - Nasopharyngeal 05/05/20 02:10 Legionella Antigen - Final Urine, Clean Catch Streptococcus pneumoniae Antigen (M - Final 05/04/20 20:50 SARS-CoV-2 Antigen (Rapid) - Final Mucosa - Nose Laboratory Tests Past 24 Hrs 05/04/20 05/04/20 05/04/20 20:30 20:30 20:30 WBC 5.5 RBC 3.97 L Hgb 13.2 Hct 39.0 MCV 98.2 MCH 33.2 H MCHC 33.8 RDW Std Deviation 52.0 H RDW Coeff of [place]lin 14.3 Plt Count 204 MPV 10.3 Immature Gran % (Auto) 0.500 Neut % (Auto) 81.4 H Lymph % (Auto) 14.5 L [place] % (Auto) 3.4 Eos % (Auto) 0.0 Baso % (Auto) 0.2 Absolute Neuts (auto) 4.5 Absolute Lymphs (auto) 0.80 L Nucleated RBC % 0 Differential Comment Platelet Estimate ADEQUATE RBC Morphology N CHROM Anisocytosis RARE Macrocytosis RARE PT INR D-Dimer Quant (PE/DVT) Sodium 138 Potassium 3.3 L Chloride 103 Carbon Dioxide 26.0 Anion Gap 9 BUN 13 Creatinine 0.85 Estim Creat Clear Calc 61.73 Est GFR (MDRD) Af Amer 85 Est GFR (MDRD) Non-Af 70 BUN/Creatinine Ratio 15.3 Glucose 92 Hemoglobin A1c Lactic Acid 1.2 Calcium 8.1 L Total Bilirubin 0.60 AST 56 H ALT 41 Alkaline Phosphatase 67 Troponin I < 0.015 Total Protein 6.9 Albumin 3.2 Globulin 3.7 Albumin/Globulin Ratio 0.9 Triglycerides Cholesterol LDL Cholesterol VLDL Cholesterol HDL Cholesterol Procalcitonin TSH COVID-19 (GINO) 05/04/20 05/04/20 05/04/20 20:30 20:30 20:32 WBC RBC Hgb Hct MCV MCH MCHC RDW Std Deviation RDW Coeff of [place]lin Plt Count MPV Immature Gran % (Auto) Neut % (Auto) Lymph % (Auto) [place] % (Auto) Eos % (Auto) Baso % (Auto) Absolute Neuts (auto) Absolute Lymphs (auto) Nucleated RBC % Differential Comment Platelet Estimate RBC Morphology Anisocytosis Macrocytosis PT INR D-Dimer Quant (PE/DVT) 0.36 Sodium Potassium Chloride Carbon Dioxide Anion Gap BUN Creatinine Estim Creat Clear Calc Est GFR (MDRD) Af Amer Est GFR (MDRD) Non-Af BUN/Creatinine Ratio Glucose Hemoglobin A1c Lactic Acid Calcium Total Bilirubin AST ALT Alkaline Phosphatase Troponin I Total Protein Albumin Globulin Albumin/Globulin Ratio Triglycerides Cholesterol LDL Cholesterol VLDL Cholesterol HDL Cholesterol Procalcitonin 0.18 H Cancelled TSH COVID-19 (GNIO) 05/04/20 05/05/20 05/05/20 23:45 07:59 07:59 WBC 6.0 RBC 3.54 L Hgb 11.5 L Hct 35.2 L MCV 99.4 H MCH 32.5 H MCHC 32.7 RDW Std Deviation 53.6 H RDW Coeff of Collin 14.4 Plt Count 194 MPV 9.7 Immature Gran % (Auto) 0.500 Neut % (Auto) 90.1 H Lymph % (Auto) 6.2 L [place] % (Auto) 3.0 Eos % (Auto) 0.0 Baso % (Auto) 0.2 Absolute Neuts (auto) 5.4 Absolute Lymphs (auto) 0.37 L Nucleated RBC % 0 Differential Comment COMMENT Platelet Estimate RBC Morphology Anisocytosis Macrocytosis PT 58.7 H INR 6.7 H* D-Dimer Quant (PE/DVT) Sodium Potassium Chloride Carbon Dioxide Anion Gap BUN Creatinine Estim Creat Clear Calc Est GFR (MDRD) Af Amer Est GFR (MDRD) Non-Af BUN/Creatinine Ratio Glucose Hemoglobin A1c Lactic Acid Calcium Total Bilirubin AST ALT Alkaline Phosphatase Troponin I Total Protein Albumin Globulin Albumin/Globulin Ratio Triglycerides Cholesterol LDL Cholesterol VLDL Cholesterol HDL Cholesterol Procalcitonin TSH COVID-19 (GINO) Positive 05/05/20 05/05/2005/05/20 07:59 07:59 14:26 WBC RBC Hgb Hct MCV MCH MCHC RDW Std Deviation RDW Coeff of Collin Plt Count MPV Immature Gran % (Auto) Neut % (Auto) Lymph % (Auto) [place] % (Auto) Eos % (Auto) Baso % (Auto) Absolute Neuts (auto) Absolute Lymphs (auto) Nucleated RBC % Differential Comment Platelet Estimate RBC Morphology Anisocytosis Macrocytosis PT INR D-Dimer Quant (PE/DVT) Sodium 140 Potassium 3.7 Chloride 111 H Carbon Dioxide 22.0 Anion Gap 7 BUN 10 Creatinine 0.53 L Estim Creat Clear Calc 51.97 Est GFR (MDRD) Af Amer 148 Est GFR (MDRD) Non-Af 123 BUN/Creatinine Ratio 19.0 Glucose 124 H Hemoglobin A1c 5.6 Lactic Acid Calcium 7.3 L Total Bilirubin 0.40 AST 46 H ALT 35 Alkaline Phosphatase 60 Troponin I < 0.015 Total Protein 5.8 L Albumin 2.5 L Globulin 3.3 Albumin/Globulin Ratio 0.8 L Triglycerides 71 Cholesterol 113 LDL Cholesterol 46 VLDL Cholesterol 14 HDL Cholesterol 53 Procalcitonin TSH 2.27 COVID-19 (GINO) - Other Studies Radiology: [] reviewed Other Studies: [] Route of nutrition/ use of supplements: [] Nutritional Intake: [] IV Site: [] Herrera Catheter: [] - Physical Exam General: Alert, Oriented x3, Cooperative, No apparent distress HEENT: Atraumatic, PERRLA, EOMI Neck: Supple, No Nodes Lungs: Clear to auscultation, Diminished Cardiovascular: Regular rate, Regular Rhythm Abdomen: Soft, Non Tender, Non-Distended Extremities: No edema Skin: No rashes IV Site: Peripheral, without redness Musculoskeletal: No Tenderness to Palpation of Joints or Extremities Neurological: Cranial nerves II-XII grossly intact - Assessment/Plan Antibiotics: [] Assessment/Plan: [] Active and Suspected Problems (Last Reviewed 05/05/20 @ 01:[address] Hal Quinonez MD) Pneumonia (Acute) Hypoxemia (Acute) covid with hypoxia - on dex, remdesivir. D-dimer normal. Supertherapeutic INR. Will order daily labs while on remdesivir, gave stop date for dex. Will follow, thank you.
[2020-05-05 18:11] LABS: Bedside Glucose 189 mg/dL (70-110)
[2020-05-05 18:35] LABS: Mucous, Urine 0 SEEN /hpf (<or=2+); Squamous Epithelial Cells - UA 0 SEEN /hpf (5-10)
[2020-05-05 18:40] LABS: Color, Urine Yellow (Yellow); Glucose, Dipstick 250 mg/dl (Normal); Ketone-Dipstick 15 mg/dl (Negative); Leukocyte Esterase-Dipstick Negative /ul (Negative); Nitrite-Dipstick Negative (Negative); Occult Blood-Urine 250 /ul (Negative); Protein-Dipstick 30 mg/dl (Negative); Specific Gravity, Urine 1.015 (1.002-1.030); Urine Bilirubin Dipstick Negative (Negative); Urine Clarity Sl. Cloudy (Clear); Urine Urobilinogen Normal (Normal)
[2020-05-05 18:47] LABS: Bacteria 2+ /hpf (None Seen); Red Blood Cells-Urine 25-50 SEEN /hpf (0-5); White Blood Cells 0-5 SEEN /hpf (0-5)
[2020-05-05] MEDS: Atorvastatin Calcium 20 MG Tablet PO (21:02)
[2020-05-06] VITALS (13 sets, daily range): BP systolic 97–110; BP diastolic 63–68; PULSE 71–120; RESP 13–23; TEMP 36.3–36.7; O2SAT 93–96
[2020-05-06] MEDS: 0.9% Normal Saline 1,000 ML 150 ML IV (03:45)
--- NOTE | 2020-05-06 07:40 | CON.PCM_ITS ---
Reason for Consult Date of Consultation: 05/06/20 Reason for Consultation: Acute hypoxemic respiratory failure secondary to COVID- 19 pneumonia History of Present Illness: The patient is a 70-year-old female, with a history as outlined below, who presented to the emergency department on May 04 with complaints of shortness of breath, myalgias, cough and fatigue of approximately 3 weeks duration. The patient does have a history of factor V Leiden deficiency with recurrent DVT, bicuspid aortic valve and hyperlipidemia. On presentation to the emergency department, the patient was noted to be afebrile but was tachycardic and saturating 86% on room air. Laboratory evaluation revealed no evidence of a leukocytosis. D-dimer was within normal limits. INR was elevated to 6.7. Chemistry profile was unremarkable, with the exception of a potassium of 3.3. Troponin was negative. Procalcitonin was not significantly elevated. Coronavirus PCR was positive. The patient was admitted to the progressive care unit and started on Decadron and remdesivir. Past Medical History Past Medical History (Chronic Problems): Chronic Problems (Last Reviewed 05/05/20 @ 01:[address] Hal Quinonez MD) Essential (primary) hypertension (Chronic) Pure hypercholesterolemia (Chronic) Palpitations (Chronic) History of left heart catheterization (Chronic ~11/2007) Atherosclerotic heart disease of [place] coronary artery without angina pectoris (Chronic) History of deep vein thrombophlebitis of lower extremity (Chronic) Hx of RLE DVT X 2 Dyspnea on exertion (Chronic) Atypical chest pain (Chronic) Factor V deficiency (Chronic) Hypothyroidism (acquired) (Chronic) Bicuspid aortic valve (Chronic) Chronic back pain (Chronic) History of thyroid cancer (Chronic) GERD (gastroesophageal reflux disease) (Chronic) History of TIA (transient ischemic attack) (Chronic) Vertigo (Chronic) Medical History: Medical History (Last Reviewed 05/05/20 @ 01:[address] Hal Quinonez MD) Essential (primary) hypertension (Chronic) I10 Pure hypercholesterolemia (Chronic) E78.00 Palpitations (Chronic) R00.2 Atherosclerotic heart disease of [place] coronary artery without angina pectoris (Chronic) I25.10 History of deep vein thrombophlebitis of lower extremity (Chronic) Z86.72 Hx of RLE DVT X 2 Dyspnea on exertion (Chronic) R06.09 Atypical chest pain (Chronic) R07.89 Factor V deficiency (Chronic) D68.2 Hypothyroidism (acquired) (Chronic) E03.9 Bicuspid aortic valve (Chronic) Q23.1 Chronic back pain (Chronic) M54.9, G89.29 History of thyroid cancer (Chronic) Z85.850 GERD (gastroesophageal reflux disease) (Chronic) K21.9 History of TIA (transient ischemic attack) (Chronic) Vertigo (Chronic) R42 Arthritis M19.90 Stroke I63.9 HTN (hypertension) I10 Allergies Iodinated Contrast Media [Iodinated Contrast Media - IV Dye] Allergy (Verified 05/04/20 20:09) Hives levofloxacin Adverse Reaction (Verified 05/04/20 20:09) abdominal pain naproxen [From Naprosyn] Adverse Reaction (Verified 05/04/20 20:09) Nausea Home Medications: Ambulatory Orders Medication Instructions Recorded Tizanidine HCl [Zanaflex] 4 mg PO BID 10/28/13 hydrocodone 5 mg-acetaminophen 325 1 tab PO PRN PRN tab 02/26/18 mg tablet liothyronine 5 mcg tablet 5 mcg PO DAILY 03/09/20 Atenolol 12.5 mg PO DAILY 05/04/20 Atenolol [Tenormin (beta dragan)] 25 mg PO DAILY 05/04/20 Levothyroxine Sodium 75 mcg PO DAILY 05/04/20 Multivitamin 1 ea PO DAILY 05/04/20 Omeprazole [Prilosec] 20 mg PO BID 05/04/20 Potassium Chloride 20 meq PO BID 05/04/20 Prednisone 20 mg PO 05/04/20 Simvastatin 40 mg PO QHS 05/04/20 Warfarin Sodium 3 mg PO DAILY 05/04/20 Surgical History: Surgical History (Last Reviewed 05/05/20 @ 01:[address] Hal Quinonez MD) History of left heart catheterization (Chronic) Onset Date: ~11/2007 Z98.890 History of thyroidectomy E89.0 History of cholecystectomy Z98.890, Z90.49 Surgical History: cholecystectomy, - - R breast lumpectomy, anal fissure surgery, thyroid resection, R carpal tunnel surgery. Kyphoplasty. 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 Hal Quinonez MD) Father CAD (coronary artery disease) Arthritis Myocardial infarction CVA (cerebral vascular accident) Mother Arthritis Hypertension Sister Arthritis Aunt Breast cancer Review of Systems Constitutional: Reports: Anorexia, Malaise, Fatigue Eyes: Denies: Blurred vision, Double vision HEENT: Denies: Head Aches, Sinus Congestion, Sinus Drainage Cardiovascular: Denies: Chest Pain, Palpitations Respiratory: Reports: Cough, Shortness of Breath Gastrointestinal: Denies: Abdominal Pain, Nausea, Vomiting Genitourinary: Denies: Dysuria Musculoskeletal: Denies: Joint Pain, Joint Tenderness Skin: Denies: Rash, Wounds Neurological: Denies: Numbness, Tingling, Focal weakness Psychiatric: Denies: Anxiety, Depression, Homicidal Ideations, Suicidal Ideations Hematologic/ Lymphatic: Reports: Hx of blood clot Patient Problems: Active and Suspected Problems (Last Reviewed 05/05/20 @ 01:[address] Hal Quinonez MD) Pneumonia (Acute) Hypoxemia (Acute) COVID-19 (Acute) Objective: The patient's most recent lab work, culture data and imaging studies have all been personally reviewed. Surface echocardiogram from August 2019 revealed evidence of stage I diastolic dysfunction with a right ventricular systolic pressure estimated to be 35 mmHg. Strep and urine Legionella antigens were negative. Respiratory viral panel was negative. Blood cultures are pending. - Physical Exam Vitals/I&O's: Vital Signs Temp Pulse Resp BP Pulse Ox 97.7 F L 77 20 H 103/67 94 05/06/20 03:51 05/06/20 03:51 05/06/20 03:51 05/06/20 03:51 05/06/20 03:51 Oxygen Flow Rate (L/min) 7 Oxygen Delivery Method Nasal Cannula Weight: 136 lb 10.986 oz Body Mass Index (BMI) 27.5 Finger Stick Blood Glucose 124 Intake and Output for Last 24 Hours 05/04/20 05/05/20 05/06/20 23:59 23:59 23:59 Intake Total 343.75 / 343.75 3461.66 / 3581.66 1360 / 1360 Output Total 350 / 850 500 / 500 Balance 343.75 / 343.75 3111.66 / 2731.66 860 / 860 General: Alert, Cooperative, No apparent distress HEENT: Atraumatic, PERRLA, Normocephalic Oral: Moist Mucosa Neck: Supple, No Nodes, Trachea Midline Lungs: No rhonchi, No wheeze, No rales, Diminished Cardiovascular: Regular rate, Regular Rhythm Abdomen: Bowel Sounds Present, Soft, Non Tender Extremities: No clubbing, No cyanosis, No edema Skin: No breakdown Musculoskeletal: No Tenderness to Palpation of Joints or Extremities Lymphatic: No Cervical, Supraclavicular, or Inguinal Adenopathy Neurological: Cranial nerves II-XII grossly intact, Neuro grossly intact Psych/Mental Status: Flat Affect Labs (Last 48 Hours) 05/04/20 05/04/20 05/04/20 20:30 20:30 20:30 WBC 5.5 RBC 3.97 L Hgb 13.2 Hct 39.0 MCV 98.2 MCH 33.2 H MCHC 33.8 RDW Std Deviation 52.0 H RDW Coeff of Collin 14.3 Plt Count 204 MPV 10.3 Immature Gran % (Auto) 0.500 Neut % (Auto) 81.4 H Lymph % (Auto) 14.5 L Marshall % (Auto) 3.4 Eos % (Auto) 0.0 Baso % (Auto) 0.2 Absolute Neuts (auto) 4.5 Absolute Lymphs (auto) 0.80 L Nucleated RBC % 0 Differential Comment Platelet Estimate ADEQUATE RBC Morphology N CHROM Anisocytosis RARE Macrocytosis RARE PT INR D-Dimer Quant (PE/DVT) Sodium 138 Potassium 3.3 L Chloride 103 Carbon Dioxide 26.0 Anion Gap 9 BUN 13 Creatinine 0.85 Estim Creat Clear Calc 61.73 Est GFR (MDRD) Af Amer 85 Est GFR (MDRD) Non-Af 70 BUN/Creatinine Ratio 15.3 Glucose 92 Hemoglobin A1c Lactic Acid 1.2 Calcium 8.1 L Total Bilirubin 0.60 AST 56 H ALT 41 Alkaline Phosphatase 67 Troponin I < 0.015 Total Protein 6.9 Albumin 3.2 Globulin 3.7 Albumin/Globulin Ratio 0.9 Triglycerides Cholesterol LDL Cholesterol VLDL Cholesterol HDL Cholesterol Procalcitonin TSH Urine Color Urine Clarity Urine pH Ur Specific [place] Urine Protein Urine Glucose (UA) Urine Ketones Urine Occult Blood Urine Nitrite Urine Bilirubin Urine Urobilinogen Ur Leukocyte Esterase Urine RBC Urine WBC Ur Squamous Epith Cells Urine Bacteria Urine Mucus COVID-19 (GINO) POC Glucose 1205/04/20 05/04/20 20:30 20:30 20:32 WBC RBC Hgb Hct MCV MCH MCHC RDW Std Deviation RDW Coeff of Collin Plt Count MPV Immature Gran % (Auto) Neut % (Auto) Lymph % (Auto) Marshall % (Auto) Eos % (Auto) Baso % (Auto) Absolute Neuts (auto) Absolute Lymphs (auto) Nucleated RBC % Differential Comment Platelet Estimate RBC Morphology Anisocytosis Macrocytosis PT INR D-Dimer Quant (PE/DVT) 0.36 Sodium Potassium Chloride Carbon Dioxide Anion Gap BUN Creatinine Estim Creat Clear Calc Est GFR (MDRD) Af Amer Est GFR (MDRD) Non-Af BUN/Creatinine Ratio Glucose Hemoglobin A1c Lactic Acid Calcium Total Bilirubin AST ALT Alkaline Phosphatase Troponin I Total Protein Albumin Globulin Albumin/Globulin Ratio Triglycerides Cholesterol LDL Cholesterol VLDL Cholesterol HDL Cholesterol Procalcitonin 0.18 H Cancelled TSH Urine Color Urine Clarity Urine pH Ur Specific [place] Urine Protein Urine Glucose (UA) Urine Ketones Urine Occult Blood Urine Nitrite Urine Bilirubin Urine Urobilinogen Ur Leukocyte Esterase Urine RBC Urine WBC Ur Squamous Epith Cells Urine Bacteria Urine Mucus COVID-19 (GINO) POC Glucose 05/04/20 05/05/20 05/05/20 23:45 07:59 07:59 WBC 6.0 RBC 3.54 L Hgb 11.5 L Hct 35.2 L MCV 99.4 H MCH 32.5 H MCHC 32.7 RDW Std Deviation 53.6 H RDW Coeff of [place]lin 14.4 Plt Count 194 MPV 9.7 Immature Gran % (Auto) 0.500 Neut % (Auto) 90.1 H Lymph % (Auto) 6.2 L Marshall % (Auto) 3.0 Eos % (Auto) 0.0 Baso % (Auto) 0.2 Absolute Neuts (auto) 5.4 Absolute Lymphs (auto) 0.37 L Nucleated RBC % 0 Differential Comment COMMENT Platelet Estimate RBC Morphology Anisocytosis Macrocytosis PT 58.7 H INR 6.7 H* D-Dimer Quant (PE/DVT) Sodium Potassium Chloride Carbon Dioxide Anion Gap BUN Creatinine Estim Creat Clear Calc Est GFR (MDRD) Af Amer Est GFR (MDRD) Non-Af BUN/Creatinine Ratio Glucose Hemoglobin A1c Lactic Acid Calcium Total Bilirubin AST ALT Alkaline Phosphatase Troponin I Total Protein Albumin Globulin Albumin/Globulin Ratio Triglycerides Cholesterol LDL Cholesterol VLDL Cholesterol HDL Cholesterol Procalcitonin TSH Urine Color Urine Clarity Urine pH Ur Specific [place] Urine Protein Urine Glucose (UA) Urine Ketones Urine Occult Blood Urine Nitrite Urine Bilirubin Urine Urobilinogen Ur Leukocyte Esterase Urine RBC Urine WBC Ur Squamous Epith Cells Urine Bacteria Urine Mucus COVID-19 (GINO) Positive POC Glucose 05/05/20 05/05/20 05/05/20 07:59 07:59 09:27 WBC RBC Hgb Hct MCV MCH MCHC RDW Std Deviation RDW Coeff of [place] Plt Count MPV Immature Gran % (Auto) Neut % (Auto) Lymph % (Auto) Marshall % (Auto) Eos % (Auto) Baso % (Auto) Absolute Neuts (auto) Absolute Lymphs (auto) Nucleated RBC % Differential Comment Platelet Estimate RBC Morphology Anisocytosis Macrocytosis PT INR D-Dimer Quant (PE/DVT) Sodium 140 Potassium 3.7 Chloride 111 H Carbon Dioxide 22.0 Anion Gap 7 BUN 10 Creatinine 0.53 L Estim Creat Clear Calc 51.97 Est GFR (MDRD) Af Amer 148 Est GFR (MDRD) Non-Af 123 BUN/Creatinine Ratio 19.0 Glucose 124 H Hemoglobin A1c 5.6 Lactic Acid Calcium 7.3 L Total Bilirubin 0.40 AST 46 H ALT 35 Alkaline Phosphatase 60 Troponin I Total Protein 5.8 L Albumin 2.5 L Globulin 3.3 Albumin/Globulin Ratio 0.8 L Triglycerides Cholesterol LDL Cholesterol VLDL Cholesterol HDL Cholesterol Procalcitonin TSH 2.27 Urine Color Urine Clarity Urine pH Ur Specific [place] Urine Protein Urine Glucose (UA) Urine Ketones Urine Occult Blood Urine Nitrite Urine Bilirubin Urine Urobilinogen Ur Leukocyte Esterase Urine RBC Urine WBC Ur Squamous Epith Cells Urine Bacteria Urine Mucus COVID-19 (GINO) POC Glucose 125 H 05/05/20 05/05/20 05/05/20 12:37 14:26 17:50 WBC RBC Hgb Hct MCV MCH MCHC RDW Std Deviation RDW Coeff of [place] Plt Count MPV Immature Gran % (Auto) Neut % (Auto) Lymph % (Auto) Marshall % (Auto) Eos % (Auto) Baso % (Auto) Absolute Neuts (auto) Absolute Lymphs (auto) Nucleated RBC % Differential Comment Platelet Estimate RBC Morphology Anisocytosis Macrocytosis PT INR D-Dimer Quant (PE/DVT) Sodium Potassium Chloride Carbon Dioxide Anion Gap BUN Creatinine Estim Creat Clear Calc Est GFR (MDRD) Af Amer Est GFR (MDRD) Non-Af BUN/Creatinine Ratio Glucose Hemoglobin A1c Lactic Acid Calcium Total Bilirubin AST ALT Alkaline Phosphatase Troponin I < 0.015 Total Protein Albumin Globulin Albumin/Globulin Ratio Triglycerides 71 Cholesterol 113 LDL Cholesterol 46 VLDL Cholesterol 14 HDL Cholesterol 53 Procalcitonin TSH Urine Color Urine Clarity Urine pH Ur Specific [place] Urine Protein Urine Glucose (UA) Urine Ketones Urine Occult Blood Urine Nitrite Urine Bilirubin Urine Urobilinogen Ur Leukocyte Esterase Urine RBC Urine WBC Ur Squamous Epith Cells Urine Bacteria Urine Mucus COVID-19 (GINO) POC Glucose 170 H 189 H 05/05/20 18:10 WBC RBC Hgb Hct MCV MCH MCHC RDW Std Deviation RDW Coeff of [place]lin Plt Count MPV Immature Gran % (Auto) Neut % (Auto) Lymph % (Auto) Marshall % (Auto) Eos % (Auto) Baso % (Auto) Absolute Neuts (auto) Absolute Lymphs (auto) Nucleated RBC % Differential Comment Platelet Estimate RBC Morphology Anisocytosis Macrocytosis PT INR D-Dimer Quant (PE/DVT) Sodium Potassium Chloride Carbon Dioxide Anion Gap BUN Creatinine Estim Creat Clear Calc Est GFR (MDRD) Af Amer Est GFR (MDRD) Non-Af BUN/Creatinine Ratio Glucose Hemoglobin A1c Lactic Acid Calcium Total Bilirubin AST ALT Alkaline Phosphatase Troponin I Total Protein Albumin Globulin Albumin/Globulin Ratio Triglycerides Cholesterol LDL Cholesterol VLDL Cholesterol HDL Cholesterol Procalcitonin TSH Urine Color Yellow Urine Clarity Sl. Cloudy Urine pH 6.0 Ur Specific [place] 1.015 Urine Protein 30 H Urine Glucose (UA) 250 H Urine Ketones 15 H Urine Occult Blood 250 H Urine Nitrite Negative Urine Bilirubin Negative Urine Urobilinogen Normal Ur Leukocyte Esterase Negative Urine RBC 25-50 SEEN Urine WBC 0-5 SEEN Ur Squamous Epith Cells 0 SEEN Urine Bacteria 2+ Urine Mucus 0 SEEN COVID-19 (GINO) POC Glucose Microbiology 05/05/20 02:10 Mucosa - Nasopharyngeal Respiratory Panel (PCR) - Final 05/05/20 02:10 Urine, Clean Catch Legionella Antigen - Final 05/05/20 02:10 Urine, Clean Catch Streptococcus pneumoniae Antigen (M - Final 05/04/20 20:50 Mucosa - Nose SARS-CoV-2 Antigen (Rapid) - Final Clinical Impression(s) from Imaging Studies Brain CT 05/04/20 20:44 IMPRESSION: Mild cortical atrophy and periventricular white matter ischemic change.. No evidence for acute bleed. If concern for acute infarct MRI recommended Electronically Signed: Mario Schafer MD at 21:42 EST , Service support , Chest X-Ray 05/04/20 21:10 IMPRESSION: Findings suspicious for Covid 19 pneumonia more severe in the lower lobes. Clinical correlation recommended Electronically Signed: Mario Schafer MD at 21:40 EST , Service support , Brain CT 05/05/20 09:23 IMPRESSION: Chronic involutional changes of the brain. N.B. : The above information has been verbally conveyed by Efrain Klein to ANDREY OLIVASKENY on 05/05/2020 09:41:34 (ET). Electronically Signed: Efrain Klein at 9:42 EST , Service support , ADDENDUM: 05/05/20 0949 IMPRESSION: Chronic involutional changes of the brain. N.B. : The above information has been verbally conveyed by Efrain Klein to ANDREY OLIVASKENY on 05/05/2020 09:41:34 (ET). Electronically Signed: Efrain Klein, at 9:42 EST , Service support , Brain MRI 05/05/20 09:51 IMPRESSION: Involutional changes of the brain, as described above. No acute infarct. Electronically Signed: Timmy Harris MD at 11:43 EST Tel , Service support , Neck MRA 05/05/20 09:51 IMPRESSION: Normal bilateral cervical carotid and vertebral arteries. Electronically Signed: Timmy Harris MD at 12:26 EST Tel , Service support , Head MRA 05/05/20 10:17 IMPRESSION: Normal MRA of the head Electronically Signed: Timmy Harris MD at 11:44 EST Tel , Service support , Current Medications Acetaminophen (Acetaminophen 325 Mg Tablet) 650 mg PO Q6H PRN PRN PRN Reason: Pain Score 1-10/Temp > 100.7 F Atorvastatin Calcium (Atorvastatin Calcium 20 Mg Tablet) 20 mg PO QHS [facility] Last Admin: 05/05/20 21:02 Dose: 20 mg Documented by: Dexamethasone (Dexamethasone 4 Mg Tablet) 6 mg PO DAILY@0800 [facility] Stop: 05/14/20 08:01 Hydralazine HCl (Hydralazine 20 Mg/Ml Vial) 5 mg IV Q30M PRN PRN Reason: to maintain BP goals Sodium Chloride () 250 mls @ 15 mls/hr IV .[id number] PRN PRN Reason: Saline Flush Sodium Chloride () 250 mls @ 15 mls/hr IV .[id number] PRN PRN Reason: Additional IVPB Infusion Remdesivir 100 mg/ Sodium (Chloride) 250 mls @ 125 mls/hr IV DAILY@0800 [facility] Stop: 05/09/20 09:59 Sodium Chloride () 1,000 mls @ 150 mls/hr IV .[id number] [facility] Last Admin: 05/06/20 03:45 Dose: 150 mls/hr Documented by: Labetalol HCl (Labetalol (Prefilled) 20 Mg/4 Ml) 10 - 20 mg IV Q10M PRN PRN PRN Reason: to Maintain BP Goals Levothyroxine Sodium (Levothyroxine 75 Mcg Tablet) 75 mcg PO DAILY@0800 [facility] Melatonin (Melatonin 3 Mg Tablet) 3 mg PO QHS PRN PRN PRN Reason: INSOMNIA Ondansetron HCl (Ondansetron 4 Mg/2 Ml Vial) 4 mg IV Q8H PRN PRN PRN Reason: NAUSEA/VOMITING Pantoprazole Sodium (Pantoprazole Sodium 20 Mg Tablet) 20 mg PO 0800,2200 [facility] Last Admin: 05/05/20 21:02 Dose: 20 mg Documented by: Potassium Chloride (Potassium Chloride 20 Meq Tablet) 20 meq PO 0800,2200 PREM Last Admin: 05/05/20 21:02 Dose: 20 meq Documented by: Sodium Chloride (0.9% Saline Lock 10 Ml Syringe) 10 - 40 ml IV UD PRN PRN Reason: SALINE FLUSH Last Admin: 05/05/20 09:30 Dose: 10 ml Documented by: Assessment/Plan All Active Problems (Last Reviewed 05/05/20 @ 01:[address] Hal Quinonez MD) Pneumonia (Acute) Hypoxemia (Acute) COVID-19 (Acute) RECOMMENDATIONS: 1. Wean supplemental oxygen to maintain saturations at or above 90%. 2. Continue remdesivir and Decadron. Continue to monitor liver and renal function accordingly. 3. Recommend discontinuation of supplemental IV fluids. 4. Resume systemic anticoagulation once coagulopathy has resolved. 5. Encourage incentive spirometer use and mobilize patient as tolerated. IMPRESSIONS: 1. Acute hypoxemic respiratory failure secondary to COVID-19 pneumonia Plan to continue current supportive measures with supplemental oxygen to maintain saturations at or above 90%. Given the patient's history of factor V Leiden and venous thromboembolic disease, the patient will be resumed on systemic anticoagulation once her coagulopathy has resolved. INR remains elevated this morning. Agree with continuing remdesivir and Decadron as ordered. Plan to monitor liver and renal function accordingly. Given the patient's history of diastolic dysfunction, recommend discontinuation of supplemental IV fluids. 2. History of heart failure with preserved ejection fraction/history of factor V Leiden deficiency/DVT/coagulopathy/hypothyroidism Complicates care, management, recovery and prognosis. Recommend holding supplemental IV fluids. Resume anticoagulation once coagulopathy has resolved. This note was generated with [employer] software. It may contain incorrect words, spelling, and punctuation that were not noted in checking the note before signing. Inpatient E&M: 63568 Init Hosp L3
[2020-05-06] MEDS: dexAMETHasone 4 MG Tablet 6 MG PO (09:04)
[2020-05-06] MEDS: Pantoprazole Sodium 20 MG Tablet PO ×2 (09:04→20:36)
[2020-05-06] MEDS: Levothyroxine 75 MCG Tablet PO (09:05)
[2020-05-06 09:24] LABS: Hematocrit 37.6 % (37-47); Hemoglobin 12.1 g/dL (12.0-15.0); Mean Corp Hgb Conc 32.2 g/dL (32-36); Mean Corpuscular Hgb 31.9 pg (27.0-32.0); Mean Corpuscular Volume 99.2 fL (81-99); Mean Platelet Vol. 9.9 fl (6.2-12.0); Platelet Count 265 K/mm3 (150-450); Red Blood Count 3.79 M/mm3 (4.2-5.4); White Blood Count 7.8 K/mm3 (4.4-11.0)
[2020-05-06 09:36] LABS: Prothrombin Time (Protime)PT. 72.4 SECONDS (11.7-14.9)
[2020-05-06 09:41] LABS: International Normalized Ratio 8.7
[2020-05-06 09:51] LABS: ALB/GLOB Ratio 0.7 RATIO (0.9-2.4); AST(SGOT) 51 U/L (15-37); Alanine Aminotransfer ALT/SGPT 46 U/L (13-56); Albumin, Serum 2.3 g/dL (3.2-5.0); Alkaline Phosphatase 61 U/L (45-117); Anion Gap 5 (5-15); BUN 12 mg/dL (7-18); BUN/Creat Ratio 20.2 RATIO (10-20); Calcium,Total 7.5 mg/dL (8.5-10.1); Chloride 118 mmol/L (98-107); Creatinine, Serum 0.59 mg/dL (0.55-1.02); EST Glomerular Filtration Rate 107 mL/min (>60); Est Glom Filt Rate - Afr Amer 129 mL/min (>60); Estimated Creatinine Clearance 51.97 ml/min; Globulin 3.4 g/dL (2.2-4.2); Glucose 123 mg/dL (74-106); Potassium 3.8 mmol/L (3.5-5.1); Protein, Total 5.7 g/dL (6.4-8.2); Sodium Level 143 mmol/L (136-145)
[2020-05-06] MEDS: Ceftriaxone 1 GM/50 ML BAG IV (12:12)
--- NOTE | 2020-05-06 14:34 | PN_ITS ---
Patient Problems: Active and Suspected Problems (Last Reviewed 05/05/20 @ 01:[address] Hal Quinonez MD) Pneumonia (Acute) Hypoxemia (Acute) COVID-19 (Acute) Subjective: Patient seen and examined. She had no complaints this morning. She still looked weak and lethargic. She was eating breakfast. She remains on 7-8L of oxygen by nasal canula. Pulmonology on board Vitals/I&O's: Vital Signs Temp Pulse Resp BP Pulse Ox 98 F 91 17 107/67 93 05/06/20 12:15 05/06/20 12:15 05/06/20 12:15 05/06/20 12:15 05/06/20 12:15 Oxygen Flow Rate (L/min) 8 Oxygen Delivery Method Nasal Cannula Weight: 136 lb 10.986 oz Body Mass Index (BMI) 27.5 Finger Stick Blood Glucose 124 Intake and Output for Last 24 Hours 05/04/20 05/05/20 05/06/20 23:59 23:59 23:59 Intake Total 343.75 / 343.75 3461.66 / 3581.66 2770 / 2770 Output Total 350 / 850 500 / 500 Balance 343.75 / 343.75 3111.66 / 2731.66 2270 / 2270 General: Alert, Cooperative, Lethargic, - - flat affect HEENT: Atraumatic, PERRLA, EOMI, Normocephalic Oral: Dry Mucosa Neck: Supple, No JVD, Negative Carotid Bruits Lungs: Normal air movement, No rhonchi, No wheeze, No rales,diminished breath sounds bibasally, Cardiovascular: Regular rate, Regular Rhythm, Normal S1, Normal S2, No murmurs Abdomen: Bowel Sounds Present, Soft, Non Tender, Non-Distended, No Hepato- splenomegaly Extremities: No clubbing, No cyanosis, No edema, Capillary Refill Less than 3 Seconds Skin: No rashes, No breakdown Musculoskeletal: No Tenderness to Palpation of Joints or Extremities Lymphatic: No Cervical, Supraclavicular, or Inguinal Adenopathy Neurological: Cranial nerves II-XII grossly intact, Motor Exam 5/5 strength throughout, - - no facial droop; NIHSS is 0 Psych/Mental Status: Flat Affect Microbiology Past 72 Hours 05/05/20 02:10 Mucosa - Nasopharyngeal Respiratory Panel (PCR) - Final 05/05/20 02:10 Urine, Clean Catch Legionella Antigen - Final 05/05/20 02:10 Urine, Clean Catch Streptococcus pneumoniae Antigen (M - Final 05/04/20 20:50 Mucosa - Nose SARS-CoV-2 Antigen (Rapid) - Final Laboratory Results 05/05/20 07:59: Hemoglobin A1c 5.6 05/05/20 14:26: Troponin I < 0.015, Triglycerides 71, Cholesterol 113, LDL Cholesterol 46, VLDL Cholesterol 14, HDL Cholesterol 53 05/05/20 17:50: POC Glucose 189 H 05/05/20 18:10: Urine Color Yellow, Urine Clarity Sl. Cloudy, Urine pH 6.0, Ur Specific [place] 1.015, Urine Protein 30 H, Urine Glucose (UA) 250 H, Urine Ketones 15 H, Urine Occult Blood 250 H, Urine Nitrite Negative, Urine Bilirubin Negative, Urine Urobilinogen Normal, Ur Leukocyte Esterase Negative, Urine RBC 25-50 SEEN, Urine WBC 0-5 SEEN, Ur Squamous Epith Cells 0 SEEN, Urine Bacteria 2+, Urine Mucus 0 SEEN 05/06/20 08:47: PT 72.4 H, INR 8.7 H* 05/06/20 08:47: Sodium 143, Potassium 3.8, Chloride 118 H, Carbon Dioxide 20.0 L , Anion Gap 5, BUN 12, Creatinine 0.59, Estim Creat Clear Calc 51.97, Est GFR (MDRD) Af Amer 129, Est GFR (MDRD) Non-Af 107, BUN/Creatinine Ratio 20.2 H, Glucose 123 H, Calcium 7.5 L, Total Bilirubin 0.40, AST 51 H, ALT 46, Alkaline Phosphatase 61, Total Protein 5.7 L, Albumin 2.3 L, Globulin 3.4, Albumin/Globulin Ratio 0.7 L 05/06/20 08:47: WBC 7.8, RBC 3.79 L, Hgb 12.1, Hct 37.6, MCV 99.2 H, MCH 31.9, MCHC 32.2, RDW Std Deviation 55.0 H, RDW Coeff of [place]lin 15.0 H, Plt Count 265, MPV 9.9 Diagnostic Data Chest X-Ray 05/04/20 21:10 IMPRESSION: Findings suspicious for Covid 19 pneumonia more severe in the lower lobes. Clinical correlation recommended Electronically Signed: Mario Schafer MD at 21:40 EST , Service support , Brain CT 05/05/20 09:23 IMPRESSION: Chronic involutional changes of the brain. N.B. : The above information has been verbally conveyed by Efrain Klein to ANDREY ISLAS on 05/05/2020 09:41:34 (ET). Electronically Signed: Efrain Klein at 9:42 EST , Service support , ADDENDUM: 05/05/20 0949 IMPRESSION: Chronic involutional changes of the brain. N.B. : The above information has been verbally conveyed by Efrain Klein to ANDREY ISLAS on 05/05/2020 09:41:34 (ET). Electronically Signed: Efrain Klein at 9:42 EST , Service support , Brain MRI 05/05/20 09:51 IMPRESSION: Involutional changes of the brain, as described above. No acute infarct. Electronically Signed: Timmy Harris MD at 11:43 EST Tel , Service support , Neck MRA 05/05/20 09:51 IMPRESSION: Normal bilateral cervical carotid and vertebral arteries. Electronically Signed: Timmy Harris MD at 12:26 EST Tel , Service support , Head MRA 05/05/20 10:17 IMPRESSION: Normal MRA of the head Electronically Signed: Timmy Harris MD at 11:44 EST Tel , Service support , Current Medications Acetaminophen (Acetaminophen 325 Mg Tablet) 650 mg PO Q6H PRN PRN PRN Reason: Pain Score 1-10/Temp > 100.7 F Atorvastatin Calcium (Atorvastatin Calcium 20 Mg Tablet) 20 mg PO QHS [facility] Last Admin: 05/05/20 21:02 Dose: 20 mg Documented by: Dexamethasone (Dexamethasone 4 Mg Tablet) 6 mg PO DAILY@0800 [facility] Stop: 05/14/20 08:01 Last Admin: 05/06/20 09:04 Dose: 6 mg Documented by: Hydralazine HCl (Hydralazine 20 Mg/Ml Vial) 5 mg IV Q30M PRN PRN Reason: to maintain BP goals Sodium Chloride () 250 mls @ 15 mls/hr IV .[id number] PRN PRN Reason: Saline Flush Sodium Chloride () 250 mls @ 15 mls/hr IV .[id number] PRN PRN Reason: Additional IVPB Infusion Remdesivir 100 mg/ Sodium (Chloride) 250 mls @ 125 mls/hr IV DAILY@0800 [facility] Stop: 05/09/20 09:59 Last Infusion: 05/06/20 11:05 Dose: Infused Documented by: Ceftriaxone Sodium (Rocephin) 1 gm in 50 mls @ 100 mls/hr IV Q24 [facility] Last Admin: 05/06/20 12:12 Dose: 100 mls/hr Documented by: Labetalol HCl (Labetalol (Prefilled) 20 Mg/4 Ml) 10 - 20 mg IV Q10M PRN PRN PRN Reason: to Maintain BP Goals Levothyroxine Sodium (Levothyroxine 75 Mcg Tablet) 75 mcg PO DAILY@0800 [facility] Last Admin: 05/06/20 09:05 Dose: 75 mcg Documented by: Melatonin (Melatonin 3 Mg Tablet) 3 mg PO QHS PRN PRN PRN Reason: INSOMNIA Ondansetron HCl (Ondansetron 4 Mg/2 Ml Vial) 4 mg IV Q8H PRN PRN PRN Reason: NAUSEA/VOMITING Pantoprazole Sodium (Pantoprazole Sodium 20 Mg Tablet) 20 mg PO 0800,2200 [facility] Last Admin: 05/06/20 09:04 Dose: 20 mg Documented by: Potassium Chloride (Potassium Chloride 20 Meq Tablet) 20 meq PO 0800,2200 [facility] Last Admin: 05/06/20 09:04 Dose: 20 meq Documented by: Sodium Chloride (0.9% Saline Lock 10 Ml Syringe) 10 - 40 ml IV UD PRN PRN Reason: SALINE FLUSH Last Admin: 05/05/20 09:30 Dose: 10 ml Documented by: STROKE Vital Signs/Narrative: Vital Signs Temp Pulse Resp BP Pulse Ox 05/06/20 12:15 98 F 91 17 107/67 93 Medical Necessity - Tobacco Use Smoking Status: Never smoker Assessment/Plan All Active Problems (Last Reviewed 05/05/20 @ 01:[address] Hal Quinonez MD) Pneumonia (Acute) Hypoxemia (Acute) COVID-19 (Acute) #Acute hypoxic respiratory failure due to COVID 19 infection * Patient on 8 L of oxygen * On Decadron and remdesivir. * titrate oxygen to maintain sats >90% * breathing treatment with bronchodilators * * #Acute metabolic encephalopathy * stroke ruled out with negative CT and negative MRI of the brain and MRA of the head and neck * UA was indicative of UTI, which was likely contributing to her symptoms * started on IV ceftriaxone * fall precautions * A1c was only 5.6 enzymes within normal limits. * PT OT on board. * opiates and zanaflex on hold * # Hypothyroidism: on synthroid. #Hypotension: * resolved. * #UTi; UA showed evidence of UTI. On IV ceftriaxone. urine culture pending. #COVID 19 infection: as above. #Chronic low back pain: norco on hold. On tylenol prn #Supratherapeutic INR: coumadin on hold. INR today is up to 8.7, from 6.7 on admission. Will give PO potassium 5mg x 1 and monitor INR #History of DVT and factor V Leiden deficiency: Coumadin on hold on account of elevated INR #Hypertension; BP meds held o/a of hypotension DVT prophylaxis: not indicated o/a of supratherapeutic INR Inpatient E&M: 66437 Subs Hosp L2
[2020-05-06] MEDS: Phytonadione (Vit K1) 5 MG TABLET PO (15:36)
[2020-05-06] MEDS: Atorvastatin Calcium 20 MG Tablet PO (20:36)
[2020-05-07] VITALS (11 sets, daily range): BP systolic 101–120; BP diastolic 66–71; PULSE 62–139; RESP 15–18; TEMP 36.6–36.7; O2SAT 92–96
[2020-05-07 06:45] LABS: Hematocrit 35.8 % (37-47); Hemoglobin 11.6 g/dL (12.0-15.0); Mean Corp Hgb Conc 32.4 g/dL (32-36); Mean Corpuscular Volume 98.6 fL (81-99); Mean Platelet Vol. 9.7 fl (6.2-12.0); Platelet Count 307 K/mm3 (150-450); RBC Distribution Width CV 14.9 % (11.6-14.6); RBC Distribution Width SD 54.6 fl (35.1-43.9); Red Blood Count 3.63 M/mm3 (4.2-5.4); White Blood Count 9.1 K/mm3 (4.4-11.0)
[2020-05-07 07:02] LABS: Prothrombin Time (Protime)PT. 35.3 SECONDS (11.7-14.9)
[2020-05-07 07:05] LABS: International Normalized Ratio 3.6
[2020-05-07 07:24] LABS: ALB/GLOB Ratio 0.7 RATIO (0.9-2.4); AST(SGOT) 40 U/L (15-37); Alanine Aminotransfer ALT/SGPT 43 U/L (13-56); Albumin, Serum 2.2 g/dL (3.2-5.0); Alkaline Phosphatase 60 U/L (45-117); Anion Gap 5 (5-15); BUN 12 mg/dL (7-18); BUN/Creat Ratio 20.5 RATIO (10-20); Chloride 116 mmol/L (98-107); Creatinine, Serum 0.58 mg/dL (0.55-1.02); EST Glomerular Filtration Rate 108 mL/min (>60); Est Glom Filt Rate - Afr Amer 131 mL/min (>60); Estimated Creatinine Clearance 51.97 ml/min; Globulin 3.1 g/dL (2.2-4.2); Glucose 121 mg/dL (74-106); Potassium 3.9 mmol/L (3.5-5.1); Protein, Total 5.3 g/dL (6.4-8.2); Sodium Level 143 mmol/L (136-145)
--- NOTE | 2020-05-07 08:17 | PN_ITS ---
Patient Problems: Active and Suspected Problems (Last Reviewed 05/05/20 @ 01:[address] Hal Quinonez MD) Pneumonia (Acute) Hypoxemia (Acute) COVID-19 (Acute) Subjective: The patient was seen and examined at the bedside this morning. Events from the last 24 hours have been reviewed. The patient is currently afebrile, hemodynam ically stable and maintaining appropriate oxygen saturations on 8 L/min via nasal cannula. The patient remains on remdesivir and Decadron. Renal and liver function are stable. INR has improved this morning to 3.6. Objective: The patient's most recent lab work, culture data and imaging studies have all been personally reviewed. Surface echocardiogram from August 2019 revealed stage I diastolic dysfunction with a right ventricular systolic pressure estimated to be 35 mmHg. Coronavirus PCR was positive on May 04. - Physical Exam Vitals/I&O's: Vital Signs Temp Pulse Resp BP Pulse Ox 97.9 F 82 15 118/66 94 05/07/20 03:38 05/07/20 07:00 05/07/20 03:38 05/07/20 03:38 05/07/20 03:38 Oxygen Flow Rate (L/min) 8 Oxygen Delivery Method Nasal Cannula Weight: 136 lb 10.986 oz Body Mass Index (BMI) 27.5 Finger Stick Blood Glucose 124 Intake and Output for Last 24 Hours 05/05/20 05/06/20 05/07/20 23:59 23:59 23:59 Intake Total 3461.66 / 3581.66 3160 / 3160 100 / 100 Output Total 350 / 850 500 / 500 Balance 3111.66 / 2731.66 2660 / 2660 100 / 100 General: Alert, Cooperative, No apparent distress HEENT: Atraumatic, Normocephalic Oral: Moist Mucosa, No Gingival or Mucosal Lesions/ Ulcerations Neck: Supple, No Nodes, Trachea Midline Lungs: No rhonchi, No wheeze, No rales, Diminished Cardiovascular: Regular rate, Regular Rhythm, No murmurs Abdomen: Bowel Sounds Present, Soft, Non Tender Extremities: No clubbing, No cyanosis, No edema Skin: No breakdown Musculoskeletal: No Tenderness to Palpation of Joints or Extremities Lymphatic: No Cervical, Supraclavicular, or Inguinal Adenopathy Neurological: Cranial nerves II-XII grossly intact, Neuro grossly intact Psych/Mental Status: Normal Affect, Appropriate Labs (Last 48 Hours) 05/05/20 05/05/20 05/05/20 07:59 07:59 07:59 WBC 6.0 RBC 3.54 L Hgb 11.5 L Hct 35.2 L MCV 99.4 H MCH 32.5 H MCHC 32.7 RDW Std Deviation 53.6 H RDW Coeff of [place]lin 14.4 Plt Count 194 MPV 9.7 Immature Gran % (Auto) 0.500 Neut % (Auto) 90.1 H Lymph % (Auto) 6.2 L [place] % (Auto) 3.0 Eos % (Auto) 0.0 Baso % (Auto) 0.2 Absolute Neuts (auto) 5.4 Absolute Lymphs (auto) 0.37 L Nucleated RBC % 0 Differential Comment COMMENT PT 58.7 H INR 6.7 H* Sodium 140 Potassium 3.7 Chloride 111 H Carbon Dioxide 22.0 Anion Gap 7 BUN 10 Creatinine 0.53 L Estim Creat Clear Calc 51.97 Est GFR (MDRD) Af Amer 148 Est GFR (MDRD) Non-Af 123 BUN/Creatinine Ratio 19.0 Glucose 124 H Hemoglobin A1c Calcium 7.3 L Total Bilirubin 0.40 AST 46 H ALT 35 Alkaline Phosphatase 60 Troponin I Total Protein 5.8 L Albumin 2.5 L Globulin 3.3 Albumin/Globulin Ratio 0.8 L Triglycerides Cholesterol LDL Cholesterol VLDL Cholesterol HDL Cholesterol TSH 2.27 Urine Color Urine Clarity Urine pH Ur Specific [place] Urine Protein Urine Glucose (UA) Urine Ketones Urine Occult Blood Urine Nitrite Urine Bilirubin Urine Urobilinogen Ur Leukocyte Esterase Urine RBC Urine WBC Ur Squamous Epith Cells Urine Bacteria Urine Mucus POC Glucose 05/05/20 05/05/20 05/05/20 07:59 09:27 12:37 WBC RBC Hgb Hct MCV MCH MCHC RDW Std Deviation RDW Coeff of [place] Plt Count MPV Immature Gran % (Auto) Neut % (Auto) Lymph % (Auto) [place] % (Auto) Eos % (Auto) Baso % (Auto) Absolute Neuts (auto) Absolute Lymphs (auto) Nucleated RBC % Differential Comment PT INR Sodium Potassium Chloride Carbon Dioxide Anion Gap BUN Creatinine Estim Creat Clear Calc Est GFR (MDRD) Af Amer Est GFR (MDRD) Non-Af BUN/Creatinine Ratio Glucose Hemoglobin A1c 5.6 Calcium Total Bilirubin AST ALT Alkaline Phosphatase Troponin I Total Protein Albumin Globulin Albumin/Globulin Ratio Triglycerides Cholesterol LDL Cholesterol VLDL Cholesterol HDL Cholesterol TSH Urine Color Urine Clarity Urine pH Ur Specific [place] Urine Protein Urine Glucose (UA) Urine Ketones Urine Occult Blood Urine Nitrite Urine Bilirubin Urine Urobilinogen Ur Leukocyte Esterase Urine RBC Urine WBC Ur Squamous Epith Cells Urine Bacteria Urine Mucus POC Glucose 125 H 170 H 05/05/20 05/05/20 05/05/20 14:26 17:50 18:10 WBC RBC Hgb Hct MCV MCH MCHC RDW Std Deviation RDW Coeff of [place] Plt Count MPV Immature Gran % (Auto) Neut % (Auto) Lymph % (Auto) [place] % (Auto) Eos % (Auto) Baso % (Auto) Absolute Neuts (auto) Absolute Lymphs (auto) Nucleated RBC % Differential Comment PT INR Sodium Potassium Chloride Carbon Dioxide Anion Gap BUN Creatinine Estim Creat Clear Calc Est GFR (MDRD) Af Amer Est GFR (MDRD) Non-Af BUN/Creatinine Ratio Glucose Hemoglobin A1c Calcium Total Bilirubin AST ALT Alkaline Phosphatase Troponin I < 0.015 Total Protein Albumin Globulin Albumin/Globulin Ratio Triglycerides 71 Cholesterol 113 LDL Cholesterol 46 VLDL Cholesterol 14 HDL Cholesterol 53 TSH Urine Color Yellow Urine Clarity Sl. Cloudy Urine pH 6.0 Ur Specific [place] 1.015 Urine Protein 30 H Urine Glucose (UA) 250 H Urine Ketones 15 H Urine Occult Blood 250 H Urine Nitrite Negative Urine Bilirubin Negative Urine Urobilinogen Normal Ur Leukocyte Esterase Negative Urine RBC 25-50 SEEN Urine WBC 0-5 SEEN Ur Squamous Epith Cells 0 SEEN Urine Bacteria 2+ Urine Mucus 0 SEEN POC Glucose 189 H 05/06/20 05/06/20 05/06/20 08:47 08:47 08:47 WBC 7.8 RBC 3.79 L Hgb 12.1 Hct 37.6 MCV 99.2 H MCH 31.9 MCHC 32.2 RDW Std Deviation 55.0 H RDW Coeff of [place] 15.0 H Plt Count 265 MPV 9.9 Immature Gran % (Auto) Neut % (Auto) Lymph % (Auto) [place] % (Auto) Eos % (Auto) Baso % (Auto) Absolute Neuts (auto) Absolute Lymphs (auto) Nucleated RBC % Differential Comment PT 72.4 H INR 8.7 H* Sodium 143 Potassium 3.8 Chloride 118 H Carbon Dioxide 20.0 L Anion Gap 5 BUN 12 Creatinine 0.59 Estim Creat Clear Calc 51.97 Est GFR (MDRD) Af Amer 129 Est GFR (MDRD) Non-Af 107 BUN/Creatinine Ratio 20.2 H Glucose 123 H Hemoglobin A1c Calcium 7.5 L Total Bilirubin 0.40 AST 51 H ALT 46 Alkaline Phosphatase 61 Troponin I Total Protein 5.7 L Albumin 2.3 L Globulin 3.4 Albumin/Globulin Ratio 0.7 L Triglycerides Cholesterol LDL Cholesterol VLDL Cholesterol HDL Cholesterol TSH Urine Color Urine Clarity Urine pH Ur Specific [place] Urine Protein Urine Glucose (UA) Urine Ketones Urine Occult Blood Urine Nitrite Urine Bilirubin Urine Urobilinogen Ur Leukocyte Esterase Urine RBC Urine WBC Ur Squamous Epith Cells Urine Bacteria Urine Mucus POC Glucose 05/07/20 05/07/20 05/07/20 06:08 06:08 06:08 WBC 9.1 RBC 3.63 L Hgb 11.6 L Hct 35.8 L MCV 98.6 MCH 32.0 MCHC 32.4 RDW Std Deviation 54.6 H RDW Coeff of [place] 14.9 H Plt Count 307 MPV 9.7 Immature Gran % (Auto) Neut % (Auto) Lymph % (Auto) [place] % (Auto) Eos % (Auto) Baso % (Auto) Absolute Neuts (auto) Absolute Lymphs (auto) Nucleated RBC % Differential Comment PT 35.3 H INR 3.6 H* Sodium 143 Potassium 3.9 Chloride 116 H Carbon Dioxide 22.0 Anion Gap 5 BUN 12 Creatinine 0.58 Estim Creat Clear Calc 51.97 Est GFR (MDRD) Af Amer 131 Est GFR (MDRD) Non-Af 108 BUN/Creatinine Ratio 20.5 H Glucose 121 H Hemoglobin A1c Calcium 8.0 L Total Bilirubin 0.50 AST 40 H ALT 43 Alkaline Phosphatase 60 Troponin I Total Protein 5.3 L Albumin 2.2 L Globulin 3.1 Albumin/Globulin Ratio 0.7 L Triglycerides Cholesterol LDL Cholesterol VLDL Cholesterol HDL Cholesterol TSH Urine Color Urine Clarity Urine pH Ur Specific [place] Urine Protein Urine Glucose (UA) Urine Ketones Urine Occult Blood Urine Nitrite Urine Bilirubin Urine Urobilinogen Ur Leukocyte Esterase Urine RBC Urine WBC Ur Squamous Epith Cells Urine Bacteria Urine Mucus POC Glucose Microbiology 05/05/20 02:10 Mucosa - Nasopharyngeal Respiratory Panel (PCR) - Final Clinical Impression(s) from Imaging Studies Brain CT 05/04/20 20:44 IMPRESSION: Mild cortical atrophy and periventricular white matter ischemic change.. No evidence for acute bleed. If concern for acute infarct MRI recommended Electronically Signed: Mario Schafer MD at 21:42 EST , Service support , Chest X-Ray 05/04/20 21:10 IMPRESSION: Findings suspicious for Covid 19 pneumonia more severe in the lower lobes. Clinical correlation recommended Electronically Signed: Mario Schafer MD at 21:40 EST , Service support , Brain CT 05/05/20 09:23 IMPRESSION: Chronic involutional changes of the brain. N.B. : The above information has been verbally conveyed by Efrain Klein to ANDREY OLIVASKENY on 05/05/2020 09:41:34 (ET). Electronically Signed: Efrain Klein at 9:42 EST , Service support , ADDENDUM: 05/05/20 0949 IMPRESSION: Chronic involutional changes of the brain. N.B. : The above information has been verbally conveyed by Efrain Klein to ANDREY OLIVASKENY on 05/05/2020 09:41:34 (ET). Electronically Signed: Efrain Klein at 9:42 EST , Service support , Brain MRI 05/05/20 09:51 IMPRESSION: Involutional changes of the brain, as described above. No acute infarct. Electronically Signed: Timmy Harris MD at 11:43 EST Tel , Service support , Neck MRA 05/05/20 09:51 IMPRESSION: Normal bilateral cervical carotid and vertebral arteries. Electronically Signed: Timmy Harris MD at 12:26 EST Tel , Service support , Head MRA 05/05/20 10:17 IMPRESSION: Normal MRA of the head Electronically Signed: Timmy Harris MD at 11:44 EST Tel , Service support , Current Medications Acetaminophen (Acetaminophen 325 Mg Tablet) 650 mg PO Q6H PRN PRN PRN Reason: Pain Score 1-10/Temp > 100.7 F Atorvastatin Calcium (Atorvastatin Calcium 20 Mg Tablet) 20 mg PO QHS [facility] Last Admin: 05/06/20 20:36 Dose: 20 mg Documented by: Dexamethasone (Dexamethasone 4 Mg Tablet) 6 mg PO DAILY@0800 [facility] Stop: 05/14/20 08:01 Last Admin: 05/06/20 09:04 Dose: 6 mg Documented by: Hydralazine HCl (Hydralazine 20 Mg/Ml Vial) 5 mg IV Q30M PRN PRN Reason: to maintain BP goals Sodium Chloride () 250 mls @ 15 mls/hr IV .[id number] PRN PRN Reason: Saline Flush Sodium Chloride () 250 mls @ 15 mls/hr IV .[id number] PRN PRN Reason: Additional IVPB Infusion Remdesivir 100 mg/ Sodium (Chloride) 250 mls @ 125 mls/hr IV DAILY@0800 [facility] Stop: 05/09/20 09:59 Last Infusion: 05/06/20 11:05 Dose: Infused Documented by: Ceftriaxone Sodium (Rocephin) 1 gm in 50 mls @ 100 mls/hr IV Q24 [facility] Last Infusion: 05/06/20 12:42 Dose: Infused Documented by: Labetalol HCl (Labetalol (Prefilled) 20 Mg/4 Ml) 10 - 20 mg IV Q10M PRN PRN PRN Reason: to Maintain BP Goals Levothyroxine Sodium (Levothyroxine 75 Mcg Tablet) 75 mcg PO DAILY@0800 [facility] Last Admin: 05/06/20 09:05 Dose: 75 mcg Documented by: Melatonin (Melatonin 3 Mg Tablet) 3 mg PO QHS PRN PRN PRN Reason: INSOMNIA Ondansetron HCl (Ondansetron 4 Mg/2 Ml Vial) 4 mg IV Q8H PRN PRN PRN Reason: NAUSEA/VOMITING Pantoprazole Sodium (Pantoprazole Sodium 20 Mg Tablet) 20 mg PO 0800,2200 [facility] Last Admin: 05/06/20 20:36 Dose: 20 mg Documented by: Potassium Chloride (Potassium Chloride 20 Meq Tablet) 20 meq PO 0800,2200 [facility] Last Admin: 05/06/20 20:36 Dose: 20 meq Documented by: Sodium Chloride (0.9% Saline Lock 10 Ml Syringe) 10 - 40 ml IV UD PRN PRN Reason: SALINE FLUSH Last Admin: 05/05/20 09:30 Dose: 10 ml Documented by: Medical Necessity - Tobacco Use Smoking Status: Never smoker Assessment/Plan All Active Problems (Last Reviewed 05/05/20 @ 01:[address] Hal Quinonez MD) Pneumonia (Acute) Hypoxemia (Acute) COVID-19 (Acute) RECOMMENDATIONS: 1. Wean supplemental oxygen to maintain saturations at or above 90%. 2. Continue remdesivir and Decadron. Continue to monitor liver and renal function accordingly. 3. Resume systemic anticoagulation once coagulopathy has resolved. 4. Encourage incentive spirometer use and mobilize patient as tolerated. IMPRESSIONS: 1. Acute hypoxemic respiratory failure secondary to COVID-19 pneumonia Plan to continue current supportive measures with supplemental oxygen to maintain saturations at or above 90%. Given the patient's history of factor V Leiden and venous thromboembolic disease, the patient will be resumed on systemic anticoagulation once her coagulopathy has resolved. INR remains elevated this morning. Agree with continuing remdesivir and Decadron as ordered. Plan to monitor liver and renal function accordingly. Encourage incentive spirometer use and mobilize patient as tolerated. 2. History of heart failure with preserved ejection fraction/history of factor V Leiden deficiency/DVT/coagulopathy/hypothyroidism Complicates care, management, recovery and prognosis. Recommend holding supplemental IV fluids. Resume anticoagulation once coagulopathy has resolved. This note was generated with [employer] dictation software. It may contain incorrect words, spelling, and punctuation that were not noted in checking the note before signing. Inpatient E&M: [id number] [facility] Hosp L2
[2020-05-07] MEDS: Levothyroxine 75 MCG Tablet PO (09:16)
[2020-05-07] MEDS: dexAMETHasone 4 MG Tablet 6 MG PO (09:16)
[2020-05-07] MEDS: Ceftriaxone 1 GM/50 ML BAG IV (09:21)
[2020-05-07] MEDS: Pantoprazole Sodium 20 MG Tablet PO ×2 (12:05→21:59)
--- NOTE | 2020-05-07 13:40 | PCM.PN.HOSP ---
Patient Problems: Active and Suspected Problems (Last Reviewed 05/05/20 @ 01:[address] Hal Quinonez MD) Pneumonia (Acute) Hypoxemia (Acute) COVID-19 (Acute) Subjective: Patient seen and examined. She had no complaints today. She is on 8 L of oxygen. She has remained hemodynamically stable. Review systems otherwise negative. Vitals/I&O's: Vital Signs Temp Pulse Resp BP Pulse Ox 97.9 F 106 H 18 101/71 96 05/07/20 09:30 05/07/20 09:30 05/07/20 09:30 05/07/20 09:30 05/07/20 09:30 Oxygen Flow Rate (L/min) 8 Oxygen Delivery Method Nasal Cannula Weight: 136 lb 10.986 oz Body Mass Index (BMI) 27.5 Finger Stick Blood Glucose 124 Intake and Output for Last 24 Hours 05/05/20 05/06/20 05/07/20 23:59 23:59 23:59 Intake Total 3461.66 / 3581.66 3160 / 3160 510 / 510 Output Total 350 / 850 500 / 500 Balance 3111.66 / 2731.66 2660 / 2660 510 / 510 General: Alert, Cooperative, Lethargic, - - flat affect HEENT: Atraumatic, PERRLA, EOMI, Normocephalic Oral: Dry Mucosa Neck: Supple, No JVD, Negative Carotid Bruits Lungs: Normal air movement, No rhonchi, No wheeze, No rales,diminished breath sounds bibasally, on 8L of oxygen Cardiovascular: Regular rate, Regular Rhythm, Normal S1, Normal S2, No murmurs Abdomen: Bowel Sounds Present, Soft, Non Tender, Non-Distended, No Hepato-splenomegaly Extremities: No clubbing, No cyanosis, No edema, Capillary Refill Less than 3 Seconds Skin: No rashes, No breakdown Musculoskeletal: No Tenderness to Palpation of Joints or Extremities Lymphatic: No Cervical, Supraclavicular, or Inguinal Adenopathy Neurological: Cranial nerves II-XII grossly intact, Motor Exam 5/5 strength throughout, Psych/Mental Status: Flat Affect Microbiology Past 72 Hours 05/05/20 02:10 Mucosa - Nasopharyngeal Respiratory Panel (PCR) - Final 05/05/20 02:10 Urine, Clean Catch Legionella Antigen - Final 05/05/20 02:10 Urine, Clean Catch Streptococcus pneumoniae Antigen (M - Final 05/04/20 20:50 Mucosa - Nose SARS-CoV-2 Antigen (Rapid) - Final Laboratory Results 05/07/20 06:08: PT 35.3 H, INR 3.6 H* 05/07/20 06:08: WBC 9.1, RBC 3.63 L, Hgb 11.6 L, Hct 35.8 L, MCV 98.6, MCH 32.0, MCHC 32.4, RDW Std Deviation 54.6 H, RDW Coeff of Collin 14.9 H, Plt Count 307, MPV 9.7 05/07/20 06:08: Sodium 143, Potassium 3.9, Chloride 116 H, Carbon Dioxide 22.0, Anion Gap 5, BUN 12, Creatinine 0.58, Estim Creat Clear Calc 51.97, Est GFR (MDRD) Af Amer 131, Est GFR (MDRD) Non-Af 108, BUN/Creatinine Ratio 20.5 H, Glucose 121 H, Calcium 8.0 L, Total Bilirubin 0.50, AST 40 H, ALT 43, Alkaline Phosphatase 60, Total Protein 5.3 L, Albumin 2.2 L, Globulin 3.1, Albumin/Globulin Ratio 0.7 L Current Medications Acetaminophen (Acetaminophen 325 Mg Tablet) 650 mg PO Q6H PRN PRN PRN Reason: Pain Score 1-10/Temp > 100.7 F Atorvastatin Calcium (Atorvastatin Calcium 20 Mg Tablet) 20 mg PO QHS [facility] Last Admin: 05/06/20 20:36 Dose: 20 mg Documented by: Dexamethasone (Dexamethasone 4 Mg Tablet) 6 mg PO DAILY@0800 [facility] Stop: 05/14/20 08:01 Last Admin: 05/07/20 09:16 Dose: 6 mg Documented by: Hydralazine HCl (Hydralazine 20 Mg/Ml Vial) 5 mg IV Q30M PRN PRN Reason: to maintain BP goals Sodium Chloride () 250 mls @ 15 mls/hr IV .[id number] PRN PRN Reason: Saline Flush Sodium Chloride () 250 mls @ 15 mls/hr IV .[id number] PRN PRN Reason: Additional IVPB Infusion Remdesivir 100 mg/ Sodium (Chloride) 250 mls @ 125 mls/hr IV DAILY@0800 [facility] Stop: 05/09/20 09:59 Last Admin: 05/07/20 12:01 Dose: 125 mls/hr Documented by: Ceftriaxone Sodium (Rocephin) 1 gm in 50 mls @ 100 mls/hr IV Q24 [facility] Last Infusion: 05/07/20 09:51 Dose: Infused Documented by: Labetalol HCl (Labetalol (Prefilled) 20 Mg/4 Ml) 10 - 20 mg IV Q10M PRN PRN PRN Reason: to Maintain BP Goals Levothyroxine Sodium (Levothyroxine 75 Mcg Tablet) 75 mcg PO DAILY@0800 [facility] Last Admin: 05/07/20 09:16 Dose: 75 mcg Documented by: Melatonin (Melatonin 3 Mg Tablet) 3 mg PO QHS PRN PRN PRN Reason: INSOMNIA Ondansetron HCl (Ondansetron 4 Mg/2 Ml Vial) 4 mg IV Q8H PRN PRN PRN Reason: NAUSEA/VOMITING Pantoprazole Sodium (Pantoprazole Sodium 20 Mg Tablet) 20 mg PO 0800,2200 [facility] Last Admin: 05/07/20 12:05 Dose: 20 mg Documented by: Potassium Chloride (Potassium Chloride 20 Meq Tablet) 20 meq PO 0800,2200 [facility] Last Admin: 05/07/20 09:16 Dose: 20 meq Documented by: Sodium Chloride (0.9% Saline Lock 10 Ml Syringe) 10 - 40 ml IV UD PRN PRN Reason: SALINE FLUSH Last Admin: 05/05/20 09:30 Dose: 10 ml Documented by: Medical Necessity - Tobacco Use Smoking Status: Never smoker Assessment/Plan All Active Problems (Last Reviewed 05/05/20 @ 01:[address] Hal Quinonez MD) Pneumonia (Acute) Hypoxemia (Acute) COVID-19 (Acute) #Acute hypoxic respiratory failure due to COVID 19 infection Patient still on 8 L of oxygen On Decadron and remdesivir. titrate oxygen to maintain sats >90% breathing treatment with bronchodilators #Acute metabolic encephalopathy due to UTI stroke ruled out with negative CT and negative MRI of the brain and MRA of the head and neck UA was indicative of UTI, which was likely contributing to her symptoms started on IV ceftriaxone fall precautions PT OT on board. opiates and zanaflex on hold # Hypothyroidism: on synthroid. #Hypotension: resolved. #UTi; UA showed evidence of UTI. On IV ceftriaxone. urine culture pending. #COVID 19 infection: as above. #Chronic low back pain: norco on hold. On tylenol prn #Supratherapeutic INR: coumadin on hold. INR is down to 3.6 today, after she received a dose of vitamin K yesterday. continue holding coumadin and trend INR #History of DVT and factor V Leiden deficiency: Coumadin on hold on account of elevated INR #Hypertension; BP meds held o/a of hypotension DVT prophylaxis: not indicated o/a of supratherapeutic INR Inpatient E&M: [id number] Subs Hosp L2
[2020-05-07] MEDS: Atorvastatin Calcium 20 MG Tablet PO (21:59)
[2020-05-08] VITALS (9 sets, daily range): BP systolic 109–116; BP diastolic 70–72; PULSE 58–113; RESP 18–19; TEMP 36.8; O2SAT 92–98
[2020-05-08 07:01] LABS: Hematocrit 37.7 % (37-47); Hemoglobin 12.6 g/dL (12.0-15.0); Mean Corp Hgb Conc 33.4 g/dL (32-36); Mean Corpuscular Hgb 32.6 pg (27.0-32.0); Mean Corpuscular Volume 97.4 fL (81-99); Mean Platelet Vol. 9.6 fl (6.2-12.0); Platelet Count 323 K/mm3 (150-450); RBC Distribution Width CV 14.8 % (11.6-14.6); RBC Distribution Width SD 53.6 fl (35.1-43.9); Red Blood Count 3.87 M/mm3 (4.2-5.4); White Blood Count 7.2 K/mm3 (4.4-11.0)
[2020-05-08 07:11] LABS: International Normalized Ratio 2.5; Prothrombin Time (Protime)PT. 26.6 SECONDS (11.7-14.9)
[2020-05-08 07:39] LABS: ALB/GLOB Ratio 0.9 RATIO (0.9-2.4); AST(SGOT) 39 U/L (15-37); Alanine Aminotransfer ALT/SGPT 53 U/L (13-56); Albumin, Serum 2.4 g/dL (3.2-5.0); Alkaline Phosphatase 68 U/L (45-117); Anion Gap 5 (5-15); BUN 11 mg/dL (7-18); BUN/Creat Ratio 18.6 RATIO (10-20); Calcium,Total 7.8 mg/dL (8.5-10.1); Chloride 112 mmol/L (98-107); Creatinine, Serum 0.59 mg/dL (0.55-1.02); EST Glomerular Filtration Rate 107 mL/min (>60); Est Glom Filt Rate - Afr Amer 130 mL/min (>60); Estimated Creatinine Clearance 51.97 ml/min; Globulin 2.8 g/dL (2.2-4.2); Glucose 98 mg/dL (74-106); Potassium 4.2 mmol/L (3.5-5.1); Protein, Total 5.2 g/dL (6.4-8.2); Sodium Level 142 mmol/L (136-145)
[2020-05-08] MEDS: dexAMETHasone 4 MG Tablet 6 MG PO (10:06)
[2020-05-08] MEDS: Pantoprazole Sodium 20 MG Tablet PO ×2 (10:06→20:42)
[2020-05-08] MEDS: Ceftriaxone 1 GM/50 ML BAG IV (10:06)
[2020-05-08] MEDS: Levothyroxine 75 MCG Tablet PO (10:07)
--- NOTE | 2020-05-08 15:41 | PN_ITS ---
Patient Problems: Active and Suspected Problems (Last Reviewed 05/05/20 @ 01:[address] Hal Quinonez MD) Pneumonia (Acute) Hypoxemia (Acute) COVID-19 (Acute) Subjective: Patient did well overnight. No acute issues were reported. Oxygenation is improving. Patient has had to go up on oxygen associated with sleep. Patient is reporting only a minor cough. No chest pain, abdominal pain, nausea or vomiting is been reported. - Physical Exam Vitals/I&O's: Vital Signs Temp Pulse Resp BP Pulse Ox 36.8 C 89 18 109/72 95 05/08/20 15:04 05/08/20 15:04 05/08/20 15:04 05/08/20 15:04 05/08/20 15:04 Oxygen Flow Rate (L/min) 3 Oxygen Delivery Method Nasal Cannula Weight: 62 kg Body Mass Index (BMI) 27.5 Finger Stick Blood Glucose 124 Intake and Output for Last 24 Hours 05/06/20 05/07/20 05/08/20 23:59 23:59 23:59 Intake Total 3160 / 3160 1320 / 1320 540 / 540 Output Total 500 / 500 0 / 0 Balance 2660 / 2660 1320 / 1320 540 / 540 General: Alert, Oriented x3, Cooperative, No apparent distress HEENT: Atraumatic, PERRLA, EOMI, Normocephalic, - - No scleral icterus or injection noted Oral: Moist Mucosa, No Gingival or Mucosal Lesions/ Ulcerations Neck: Supple, No JVD, No Nodes, Trachea Midline Lungs: No rhonchi, No wheeze, No rales, Diminished Cardiovascular: Regular rate, Regular Rhythm, Normal S1, Normal S2, No murmurs, No rub noted, No Gallop Abdomen: Bowel Sounds Present, Soft, Non Tender, Non-Distended Extremities: No clubbing, No cyanosis, No edema Skin: No rashes, No breakdown Musculoskeletal: No Tenderness to Palpation of Joints or Extremities Lymphatic: No Cervical, Supraclavicular, or Inguinal Adenopathy Neurological: Cranial nerves II-XII grossly intact, Neuro grossly intact, Motor Exam 5/5 strength throughout Psych/Mental Status: Alert and oriented to time, place, person, mood and affect Microbiology Past 72 Hours 05/04/20 20:30 Blood Culture (Wb) - Anticubital Right Blood Culture - Preliminary No growth in 48 hours. 05/04/20 20:43 Blood Culture (Wb) - Right Hand Blood Culture - Preliminary No growth in 48 hours. Laboratory Results 05/08/20 05:50: PT 26.6 H, INR 2.5 05/08/20 05:50: WBC 7.2, RBC 3.87 L, Hgb 12.6, Hct 37.7, MCV 97.4, MCH 32.6 H, MCHC 33.4, RDW Std Deviation 53.6 H, RDW Coeff of Collin 14.8 H, Plt Count 323, MPV 9.6 05/08/20 05:50: Sodium 142, Potassium 4.2, Chloride 112 H, Carbon Dioxide 25.0, Anion Gap 5, BUN 11, Creatinine 0.59, Estim Creat Clear Calc 51.97, Est GFR (MDRD) Af Amer 130, Est GFR (MDRD) Non-Af 107, BUN/Creatinine Ratio 18.6, Glucose 98, Calcium 7.8 L, Total Bilirubin 0.50, AST 39 H, ALT 53, Alkaline Phosphatase 68, Total Protein 5.2 L, Albumin 2.4 L, Globulin 2.8, Albumin/Globulin Ratio 0.9 Current Medications Acetaminophen (Acetaminophen 325 Mg Tablet) 650 mg PO Q6H PRN PRN PRN Reason: Pain Score 1-10/Temp > 100.7 F Atorvastatin Calcium (Atorvastatin Calcium 20 Mg Tablet) 20 mg PO QHS [facility] Last Admin: 05/07/20 21:59 Dose: 20 mg Documented by: Dexamethasone (Dexamethasone 4 Mg Tablet) 6 mg PO DAILY@0800 [facility] Stop: 05/14/20 08:01 Last Admin: 05/08/20 10:06 Dose: 6 mg Documented by: Hydralazine HCl (Hydralazine 20 Mg/Ml Vial) 5 mg IV Q30M PRN PRN Reason: to maintain BP goals Sodium Chloride () 250 mls @ 15 mls/hr IV .[id number] PRN PRN Reason: Saline Flush Sodium Chloride () 250 mls @ 15 mls/hr IV .[id number] PRN PRN Reason: Additional IVPB Infusion Remdesivir 100 mg/ Sodium (Chloride) 250 mls @ 125 mls/hr IV DAILY@0800 [facility] Stop: 05/09/20 09:59 Last Infusion: 05/08/20 14:10 Dose: Infused Documented by: Labetalol HCl (Labetalol (Prefilled) 20 Mg/4 Ml) 10 - 20 mg IV Q10M PRN PRN PRN Reason: to Maintain BP Goals Levothyroxine Sodium (Levothyroxine 75 Mcg Tablet) 75 mcg PO DAILY@0800 [facility] Last Admin: 05/08/20 10:07 Dose: 75 mcg Documented by: Melatonin (Melatonin 3 Mg Tablet) 3 mg PO QHS PRN PRN PRN Reason: INSOMNIA Ondansetron HCl (Ondansetron 4 Mg/2 Ml Vial) 4 mg IV Q8H PRN PRN PRN Reason: NAUSEA/VOMITING Pantoprazole Sodium (Pantoprazole Sodium 20 Mg Tablet) 20 mg PO 0800,2200 [facility] Last Admin: 05/08/20 10:06 Dose: 20 mg Documented by: Potassium Chloride (Potassium Chloride 20 Meq Tablet) 20 meq PO 0800,2200 [facility] Last Admin: 05/08/20 10:07 Dose: 20 meq Documented by: Sodium Chloride (0.9% Saline Lock 10 Ml Syringe) 10 - 40 ml IV UD PRN PRN Reason: SALINE FLUSH Last Admin: 05/05/20 09:30 Dose: 10 ml Documented by: Medical Necessity - Tobacco Use Smoking Status: Never smoker Assessment/Plan All Active Problems (Last Reviewed 05/05/20 @ 01:[address] Hal Quinonez MD) Pneumonia (Acute) Hypoxemia (Acute) COVID-19 (Acute) RECOMMENDATIONS: 1. Wean supplemental oxygen to maintain saturations at or above 90%. 2. Continue remdesivir and Decadron (day 4). Continue to monitor liver and renal function accordingly. 3. Resume systemic anticoagulation once coagulopathy has resolved. 4. Encourage incentive spirometer use and mobilize patient as tolerated. 5. If patient continues to improve, possible discharge in the next 24 to 48 hours IMPRESSIONS: 1. Acute hypoxemic respiratory failure secondary to COVID-19 pneumonia Plan to continue current supportive measures with supplemental oxygen to maintain saturations at or above 90%. Given the patient's history of factor V Leiden and venous thromboembolic disease, the patient will be resumed on systemic anticoagulation once her coagulopathy has resolved. INR is therapeutic. Agree with continuing remdesivir and Decadron as ordered. Plan to monitor liver and renal function accordingly. Encourage incentive spirometer use and mobilize patient as tolerated. If patient continues to improve, possible discharge in the next 24 to 48 hours. 2. History of heart failure with preserved ejection fraction/history of factor V Leiden deficiency/DVT/coagulopathy/hypothyroidism Complicates care, management, recovery and prognosis. Recommend holding supplemental IV fluids. Resume anticoagulation once coagulopathy has resolved. Inpatient E&M: [id number] [facility] Hosp L2
--- NOTE | 2020-05-08 17:06 | PN.ID_ITS ---
Patient Problems: Active and Suspected Problems (Last Reviewed 05/05/20 @ 01:[address] Hal Quinonez MD) Pneumonia (Acute) Hypoxemia (Acute) COVID-19 (Acute) Subjective: Feeling ok, some dyspnea, no fever, no n/v/d - Physical Exam Vitals/I&O's: Vital Signs Temp Pulse Resp BP Pulse Ox 98.3 F 89 18 109/72 95 05/08/20 15:04 05/08/20 15:04 05/08/20 15:04 05/08/20 15:04 05/08/20 15:04 Oxygen Flow Rate (L/min) 3 Oxygen Delivery Method Nasal Cannula Weight: 62 kg Body Mass Index (BMI) 27.5 Finger Stick Blood Glucose 124 Intake and Output for Last 24 Hours 05/06/20 05/07/20 05/08/20 23:59 23:59 23:59 Intake Total 3160 / 3160 1320 / 1320 540 / 540 Output Total 500 / 500 0 / 0 Balance 2660 / 2660 1320 / 1320 540 / 540 General: Alert, Cooperative, No apparent distress Lungs: Clear to auscultation, Diminished Cardiovascular: Regular rate, Regular Rhythm Abdomen: Soft, Non Tender, Non-Distended Skin: No rashes Microbiology Past 72 Hours 05/04/20 20:30 Blood Culture (Wb) - Anticubital Right Blood Culture - Preliminary No growth in 48 hours. 05/04/20 20:43 Blood Culture (Wb) - Right Hand Blood Culture - Preliminary No growth in 48 hours. Laboratory Results 05/08/20 05:50: PT 26.6 H, INR 2.5 05/08/20 05:50: WBC 7.2, RBC 3.87 L, Hgb 12.6, Hct 37.7, MCV 97.4, MCH 32.6 H, MCHC 33.4, RDW Std Deviation 53.6 H, RDW Coeff of Collin 14.8 H, Plt Count 323, MPV 9.6 05/08/20 05:50: Sodium 142, Potassium 4.2, Chloride 112 H, Carbon Dioxide 25.0, Anion Gap 5, BUN 11, Creatinine 0.59, Estim Creat Clear Calc 51.97, Est GFR (MDRD) Af Amer 130, Est GFR (MDRD) Non-Af 107, BUN/Creatinine Ratio 18.6, Glucose 98, Calcium 7.8 L, Total Bilirubin 0.50, AST 39 H, ALT 53, Alkaline Phosphatase 68, Total Protein 5.2 L, Albumin 2.4 L, Globulin 2.8, Albumin/Globulin Ratio 0.9 Current Medications Acetaminophen (Acetaminophen 325 Mg Tablet) 650 mg PO Q6H PRN PRN PRN Reason: Pain Score 1-10/Temp > 100.7 F Atorvastatin Calcium (Atorvastatin Calcium 20 Mg Tablet) 20 mg PO QHS [facility] Last Admin: 05/07/20 21:59 Dose: 20 mg Documented by: Dexamethasone (Dexamethasone 4 Mg Tablet) 6 mg PO DAILY@0800 [facility] Stop: 05/14/20 08:01 Last Admin: 05/08/20 10:06 Dose: 6 mg Documented by: Hydralazine HCl (Hydralazine 20 Mg/Ml Vial) 5 mg IV Q30M PRN PRN Reason: to maintain BP goals Sodium Chloride () 250 mls @ 15 mls/hr IV .[id number] PRN PRN Reason: Saline Flush Sodium Chloride () 250 mls @ 15 mls/hr IV .[id number] PRN PRN Reason: Additional IVPB Infusion Remdesivir 100 mg/ Sodium (Chloride) 250 mls @ 125 mls/hr IV DAILY@0800 [facility] Stop: 05/09/20 09:59 Last Infusion: 05/08/20 14:10 Dose: Infused Documented by: Labetalol HCl (Labetalol (Prefilled) 20 Mg/4 Ml) 10 - 20 mg IV Q10M PRN PRN PRN Reason: to Maintain BP Goals Levothyroxine Sodium (Levothyroxine 75 Mcg Tablet) 75 mcg PO DAILY@0800 [facility] Last Admin: 05/08/20 10:07 Dose: 75 mcg Documented by: Melatonin (Melatonin 3 Mg Tablet) 3 mg PO QHS PRN PRN PRN Reason: INSOMNIA Ondansetron HCl (Ondansetron 4 Mg/2 Ml Vial) 4 mg IV Q8H PRN PRN PRN Reason: NAUSEA/VOMITING Pantoprazole Sodium (Pantoprazole Sodium 20 Mg Tablet) 20 mg PO 0800,2200 [facility] Last Admin: 05/08/20 10:06 Dose: 20 mg Documented by: Potassium Chloride (Potassium Chloride 20 Meq Tablet) 20 meq PO 0800,2200 [facility] Last Admin: 12/07/20 10:07 Dose: 20 meq Documented by: Sodium Chloride (0.9% Saline Lock 10 Ml Syringe) 10 - 40 ml IV UD PRN PRN Reason: SALINE FLUSH Last Admin: 05/05/20 09:30 Dose: 10 ml Documented by: Medical Necessity - Tobacco Use Smoking Status: Never smoker Route of nutrition/ use of supplements: [] Nutritional Intake: [] IV Site: [] Herrera Catheter: [] - Assessment/Plan Antibiotics: [] Assessment/Plan: [] Active and Suspected Problems (Last Reviewed 05/05/20 @ 01:[address] Hal Quinonez MD) Pneumonia (Acute) Hypoxemia (Acute) covid with hypoxia - on dex, remdesivir. D-dimer normal. On coumadin. On 6L this afternoon. Will stop ceftriaxone, doubt uti. UA without pyuria, no nitrites, no leuk est, and asymptomatic. Will follow
--- NOTE | 2020-05-08 18:21 | PN_ITS ---
Patient Problems: Active and Suspected Problems (Last Reviewed 05/05/20 @ 01:[address] Hal Quinonez MD) Pneumonia (Acute) Hypoxemia (Acute) COVID-19 (Acute) Subjective: Feeling better, she has varying oxygen requirements. At one point she is on 6 L and then she was on 3 L today. We will continue to monitor and will obtain an ambulatory pulse ox in the morning. Vitals/I&O's: Vital Signs Temp Pulse Resp BP Pulse Ox 98.3 F 89 18 109/72 95 05/08/20 15:04 05/08/20 15:04 05/08/20 15:04 05/08/20 15:04 05/08/20 15:04 Oxygen Flow Rate (L/min) 3 Oxygen Delivery Method Nasal Cannula Weight: 136 lb 10.986 oz Body Mass Index (BMI) 27.5 Finger Stick Blood Glucose 124 Intake and Output for Last 24 Hours 05/06/20 05/07/20 05/08/20 23:59 23:59 23:59 Intake Total 3160 / 3160 1320 / 1320 540 / 540 Output Total 500 / 500 0 / 0 Balance 2660 / 2660 1320 / 1320 540 / 540 General: Alert, Oriented x3, Cooperative, No apparent distress HEENT: Atraumatic, PERRLA, EOMI, Normocephalic Oral: Moist Mucosa Neck: Supple, No JVD Lungs: Normal air movement, No rhonchi, No wheeze, No rales, Diminished Cardiovascular: Regular rate, Regular Rhythm, Normal S1, Normal S2, No murmurs Abdomen: Soft, Non Tender, Non-Distended, No Hepato-splenomegaly Extremities: No edema, Capillary Refill Less than 3 Seconds Skin: No rashes, No breakdown Neurological: Neuro grossly intact, Sensory exam intact to light touch and pain Psych/Mental Status: Normal Affect, Appropriate Microbiology Past 72 Hours 05/04/20 20:30 Blood Culture (Wb) - Anticubital Right Blood Culture - Preliminary No growth in 48 hours. 05/04/20 20:43 Blood Culture (Wb) - Right Hand Blood Culture - Preliminary No growth in 48 hours. Laboratory Results 05/08/20 05:50: PT 26.6 H, INR 2.5 05/08/20 05:50: WBC 7.2, RBC 3.87 L, Hgb 12.6, Hct 37.7, MCV 97.4, MCH 32.6 H, MCHC 33.4, RDW Std Deviation 53.6 H, RDW Coeff of Collin 14.8 H, Plt Count 323, MPV 9.6 05/08/20 05:50: Sodium 142, Potassium 4.2, Chloride 112 H, Carbon Dioxide 25.0, Anion Gap 5, BUN 11, Creatinine 0.59, Estim Creat Clear Calc 51.97, Est GFR (MDRD) Af Amer 130, Est GFR (MDRD) Non-Af 107, BUN/Creatinine Ratio 18.6, Glucose 98, Calcium 7.8 L, Total Bilirubin 0.50, AST 39 H, ALT 53, Alkaline Phosphatase 68, Total Protein 5.2 L, Albumin 2.4 L, Globulin 2.8, Albumin/Globulin Ratio 0.9 Current Medications Acetaminophen (Acetaminophen 325 Mg Tablet) 650 mg PO Q6H PRN PRN PRN Reason: Pain Score 1-10/Temp > 100.7 F Atorvastatin Calcium (Atorvastatin Calcium 20 Mg Tablet) 20 mg PO QHS [facility] Last Admin: 05/07/20 21:59 Dose: 20 mg Documented by: Dexamethasone (Dexamethasone 4 Mg Tablet) 6 mg PO DAILY@0800 [facility] Stop: 05/14/20 08:01 Last Admin: 05/08/20 10:06 Dose: 6 mg Documented by: Hydralazine HCl (Hydralazine 20 Mg/Ml Vial) 5 mg IV Q30M PRN PRN Reason: to maintain BP goals Sodium Chloride () 250 mls @ 15 mls/hr IV .[id number] PRN PRN Reason: Saline Flush Sodium Chloride () 250 mls @ 15 mls/hr IV .[id number] PRN PRN Reason: Additional IVPB Infusion Remdesivir 100 mg/ Sodium (Chloride) 250 mls @ 125 mls/hr IV DAILY@0800 [facility] Stop: 05/09/20 09:59 Last Infusion: 05/08/20 14:10 Dose: Infused Documented by: Labetalol HCl (Labetalol (Prefilled) 20 Mg/4 Ml) 10 - 20 mg IV Q10M PRN PRN PRN Reason: to Maintain BP Goals Levothyroxine Sodium (Levothyroxine 75 Mcg Tablet) 75 mcg PO DAILY@0800 [facility] Last Admin: 05/08/20 10:07 Dose: 75 mcg Documented by: Melatonin (Melatonin 3 Mg Tablet) 3 mg PO QHS PRN PRN PRN Reason: INSOMNIA Ondansetron HCl (Ondansetron 4 Mg/2 Ml Vial) 4 mg IV Q8H PRN PRN PRN Reason: NAUSEA/VOMITING Pantoprazole Sodium (Pantoprazole Sodium 20 Mg Tablet) 20 mg PO 0800,2200 [facility] Last Admin: 05/08/20 10:06 Dose: 20 mg Documented by: Potassium Chloride (Potassium Chloride 20 Meq Tablet) 20 meq PO 0800,0 [facility] Last Admin: 05/08/20 10:07 Dose: 20 meq Documented by: Sodium Chloride (0.9% Saline Lock 10 Ml Syringe) 10 - 40 ml IV UD PRN PRN Reason: SALINE FLUSH Last Admin: 05/05/20 09:30 Dose: 10 ml Documented by: STROKE Vital Signs/Narrative: Vital Signs Temp Pulse Resp BP Pulse Ox 05/08/20 15:04 98.3 F 89 18 109/72 95 Medical Necessity - Tobacco Use Smoking Status: Never smoker Assessment/Plan All Active Problems (Last Reviewed 05/05/20 @ 01:[address] Hal Quinonez MD) Pneumonia (Acute) Hypoxemia (Acute) COVID-19 (Acute) 1. Acute hypoxic respiratory failure secondary to COVID-19 pneumonia/acute metabolic encephalopathy secondary to Covid and UTI -Continue with Decadron and remdesivir -Continue with inhalers. Appreciate pulmonology and ID assistance -Urine cultures pending, she has completed 3 days of Rocephin -PT/OT 2. History of DVT secondary to factor V Leiden deficiency -INR was supratherapeutic. Today to 2.5. If remains normal tomorrow can restart Coumadin 3. Hypothyroidism -Stable -Continue with Synthroid 4. HTN/HLD -Blood pressure is stable -Can likely restart beta-dragan on discharge -Continue with statin DVT: Coumadin Inpatient E&M: [id number] Subs Hosp L2
[2020-05-08] MEDS: Atorvastatin Calcium 20 MG Tablet PO (20:42)
[2020-05-09] VITALS (13 sets, daily range): BP systolic 107–121; BP diastolic 66–78; PULSE 59–102; RESP 18; TEMP 36.5–37; O2SAT 6–97
[2020-05-09 07:23] LABS: Hematocrit 36.6 % (37-47); Mean Corp Hgb Conc 32.8 g/dL (32-36); Mean Corpuscular Hgb 32.1 pg (27.0-32.0); Mean Corpuscular Volume 97.9 fL (81-99); Mean Platelet Vol. 9.5 fl (6.2-12.0); Platelet Count 305 K/mm3 (150-450); RBC Distribution Width CV 14.6 % (11.6-14.6); RBC Distribution Width SD 53.1 fl (35.1-43.9); Red Blood Count 3.74 M/mm3 (4.2-5.4)
[2020-05-09 07:38] LABS: International Normalized Ratio 2.4; Prothrombin Time (Protime)PT. 26.1 SECONDS (11.7-14.9)
[2020-05-09 07:51] LABS: AST(SGOT) 26 U/L (15-37); Alanine Aminotransfer ALT/SGPT 47 U/L (13-56); Albumin, Serum 2.4 g/dL (3.2-5.0); Alkaline Phosphatase 69 U/L (45-117); Anion Gap 6 (5-15); BUN 12 mg/dL (7-18); BUN/Creat Ratio 20.7 RATIO (10-20); Calcium,Total 7.6 mg/dL (8.5-10.1); Chloride 112 mmol/L (98-107); Creatinine, Serum 0.58 mg/dL (0.55-1.02); EST Glomerular Filtration Rate 109 mL/min (>60); Est Glom Filt Rate - Afr Amer 132 mL/min (>60); Estimated Creatinine Clearance 51.97 ml/min; Globulin 2.4 g/dL (2.2-4.2); Glucose 83 mg/dL (74-106); Potassium 4.1 mmol/L (3.5-5.1); Protein, Total 4.8 g/dL (6.4-8.2); Sodium Level 143 mmol/L (136-145)
[2020-05-09] MEDS: dexAMETHasone 4 MG Tablet 6 MG PO (08:53)
[2020-05-09] MEDS: Levothyroxine 75 MCG Tablet PO (08:54)
[2020-05-09] MEDS: Pantoprazole Sodium 20 MG Tablet PO ×2 (08:54→20:17)
--- NOTE | 2020-05-09 09:33 | CASEMGMT ---
RN CM NOTE: Per Nasima GONZALEZ, ambulatory pulse ox has been done. Pulse ox 86% during ambulation w/O2 @ 5 L/M and only came up to 91% w/6 L/M. Dr Serrano made aware. He states plans to keep pt one more day. Will re-evaluate O2 needs again tomorrow. Brittany BSN RN CM
--- NOTE | 2020-05-09 14:15 | CASEMGMT ---
LISA WILSON NOTE: PT/OT notes have been reviewed. Additional therapy recommended. Call placed to pts room at this time. Discussed discharge planning. Pt declines need for HHC at this time. She states her will be home w/her and available to help if needed. She was made aware, once she returns home, if she would like HHC, to discuss this with her PCP. She was also made aware, if interested in OP therapy, once out of quarantine, she can discuss this with her PCP as well. She voices understanding. She denies having any discharge planning needs at this time. Brittany GARAY RN, CM
--- NOTE | 2020-05-09 15:21 | PN_ITS ---
Patient Problems: Active and Suspected Problems (Last Reviewed 05/05/20 @ 01:[address] Hal Quinonez MD) Pneumonia (Acute) Hypoxemia (Acute) COVID-19 (Acute) Subjective: Patient did okay overnight. Patient did have some desaturation associated with sleep requiring 7 L nasal cannula. Patient had a walking oximetry today and did desaturate as low as 91% on 6 L nasal cannula. Patient reports she subjectively feels improved compared to previous. - Physical Exam Vitals/I&O's: Vital Signs Temp Pulse Resp BP Pulse Ox 37.0 C 82 18 109/70 95 05/09/20 12:00 05/09/20 12:00 05/09/20 12:00 05/09/20 12:00 05/09/20 12:00 Oxygen Flow Rate (L/min) [ 91 AMBULATION with Oxygen] Oxygen Flow Rate (L/min) 4 Oxygen Delivery Method Nasal Cannula Weight: 62 kg Body Mass Index (BMI) 27.5 Finger Stick Blood Glucose 124 Intake and Output for Last 24 Hours 05/07/20 05/08/20 05/09/20 23:59 23:59 23:59 Intake Total 1320 / 1320 1180 / 1180 730 / 730 Output Total 0 / 0 Balance 1320 / 1320 1180 / 1180 730 / 730 General: Alert, Oriented x3, Cooperative, No apparent distress, - - Very weak voice. No hoarseness or stridor noted. HEENT: Atraumatic, PERRLA, EOMI, Normocephalic, - - No scleral icterus or injection noted Oral: Moist Mucosa, No Gingival or Mucosal Lesions/ Ulcerations Neck: Supple, No Nodes, Trachea Midline Lungs: No rhonchi, No wheeze, Diminished, Rales - Right base Cardiovascular: Regular rate, Regular Rhythm, Normal S1, Normal S2, Murmur, No rub noted, No Gallop Abdomen: Bowel Sounds Present, Soft, Non Tender, Non-Distended Extremities: No clubbing, No cyanosis, No edema, Capillary Refill Less than 3 Seconds Skin: No rashes, No breakdown Musculoskeletal: No Tenderness to Palpation of Joints or Extremities Lymphatic: No Cervical, Supraclavicular, or Inguinal Adenopathy Neurological: Cranial nerves II-XII grossly intact, Neuro grossly intact, Motor Exam 5/5 strength throughout Psych/Mental Status: Appropriate, Flat Affect Microbiology Past 72 Hours 05/07/20 20:25 Urine, Clean Catch Urine Culture - Preliminary Culture exhibits no growth. 05/04/20 20:30 Blood Culture (Wb) - Anticubital Right Blood Culture - Preliminary No growth in 48 hours. 05/04/20 20:43 Blood Culture (Wb) - Right Hand Blood Culture - Preliminary No growth in 48 hours. Laboratory Results 05/09/20 06:50: WBC 7.0, RBC 3.74 L, Hgb 12.0, Hct 36.6 L, MCV 97.9, MCH 32.1 H, MCHC 32.8, RDW Std Deviation 53.1 H, RDW Coeff of Collin 14.6, Plt Count 305, MPV 9.5 05/09/20 06:50: Sodium 143, Potassium 4.1, Chloride 112 H, Carbon Dioxide 25.0, Anion Gap 6, BUN 12, Creatinine 0.58, Estim Creat Clear Calc 51.97, Est GFR (MDRD) Af Amer 132, Est GFR (MDRD) Non-Af 109, BUN/Creatinine Ratio 20.7 H, Glucose 83, Calcium 7.6 L, Total Bilirubin 0.60, AST 26, ALT 47, Alkaline Phosphatase 69, Total Protein 4.8 L, Albumin 2.4 L, Globulin 2.4, Albumin /Globulin Ratio 1.0 05/09/20 06:50: PT 26.1 H, INR 2.4 Current Medications Acetaminophen (Acetaminophen 325 Mg Tablet) 650 mg PO Q6H PRN PRN PRN Reason: Pain Score 1-10/Temp > 100.7 F Atorvastatin Calcium (Atorvastatin Calcium 20 Mg Tablet) 20 mg PO QHS [facility] Last Admin: 05/08/20 20:42 Dose: 20 mg Documented by: Dexamethasone (Dexamethasone 4 Mg Tablet) 6 mg PO DAILY@0800 [facility] Stop: 05/14/20 08:01 Last Admin: 05/09/20 08:53 Dose: 6 mg Documented by: Hydralazine HCl (Hydralazine 20 Mg/Ml Vial) 5 mg IV Q30M PRN PRN Reason: to maintain BP goals Sodium Chloride () 250 mls @ 15 mls/hr IV .[id number] PRN PRN Reason: Saline Flush Sodium Chloride () 250 mls @ 15 mls/hr IV .[id number] PRN PRN Reason: Additional IVPB Infusion Labetalol HCl (Labetalol (Prefilled) 20 Mg/4 Ml) 10 - 20 mg IV Q10M PRN PRN PRN Reason: to Maintain BP Goals Levothyroxine Sodium (Levothyroxine 75 Mcg Tablet) 75 mcg PO DAILY@0800 [facility] Last Admin: 05/09/20 08:54 Dose: 75 mcg Documented by: Melatonin (Melatonin 3 Mg Tablet) 3 mg PO QHS PRN PRN PRN Reason: INSOMNIA Ondansetron HCl (Ondansetron 4 Mg/2 Ml Vial) 4 mg IV Q8H PRN PRN PRN Reason: NAUSEA/VOMITING Pantoprazole Sodium (Pantoprazole Sodium 20 Mg Tablet) 20 mg PO 0800,2200 [facility] Last Admin: 05/09/20 08:54 Dose: 20 mg Documented by: Potassium Chloride (Potassium Chloride 20 Meq Tablet) 20 meq PO 0800,2200 [facility] Last Admin: 05/09/20 08:54 Dose: 20 meq Documented by: Sodium Chloride (0.9% Saline Lock 10 Ml Syringe) 10 - 40 ml IV UD PRN PRN Reason: SALINE FLUSH Last Admin: 05/05/20 09:30 Dose: 10 ml Documented by: Medical Necessity - Tobacco Use Smoking Status: Never smoker Assessment/Plan All Active Problems (Last Reviewed 05/05/20 @ 01:[address] Hal Quinonez MD) Pneumonia (Acute) Hypoxemia (Acute) COVID-19 (Acute) RECOMMENDATIONS: 1. Wean supplemental oxygen to maintain saturations at or above 90%. 2. Continue remdesivir and Decadron (day 5). Continue to monitor liver and renal function accordingly. 3. Resume systemic anticoagulation once coagulopathy has resolved. 4. Encourage incentive spirometer use and mobilize patient as tolerated. 5. Diuretic challenge IMPRESSIONS: 1. Acute hypoxemic respiratory failure secondary to COVID-19 pneumonia Plan to continue current supportive measures with supplemental oxygen to maintain saturations at or above 90%. Given the patient's history of factor V Leiden and venous thromboembolic disease, the patient will be resumed on systemic anticoagulation once her coagulopathy has resolved. INR is therapeutic. Agree with continuing remdesivir and Decadron as ordered. Plan to monitor liver and renal function accordingly. Encourage incentive spirometer use and mobilize patient as tolerated. Unclear if Rales on exam are secondary to atelectasis versus an element of pulmonary edema. Patient will be given a diuretic challenge. If patient continues to improve, possible discharge in the next 24 to 48 hours. Check BMP in a.m. to evaluate for electrolyte depletion 2. History of heart failure with preserved ejection fraction/history of factor V Leiden deficiency/DVT/coagulopathy/hypothyroidism Complicates care, management, recovery and prognosis. Recommend holding supplemental IV fluids. Resume anticoagulation once coagulopathy has resolved. Inpatient E&M: 55972 Subs Hosp L2
[2020-05-09] MEDS: Furosemide 20 MG Tablet PO (15:44)
--- NOTE | 2020-05-09 18:35 | PN_ITS ---
Patient Problems: Active and Suspected Problems (Last Reviewed 05/05/20 @ 01:[address] Hal Quinonez MD) Pneumonia (Acute) Hypoxemia (Acute) COVID-19 (Acute) Subjective: Feels better today than she did yesterday. She did have an ambulatory pulse ox which required about 6 L to reach 91% Vitals/I&O's: Vital Signs Temp Pulse Resp BP Pulse Ox 97.7 F L 77 18 118/78 95 05/09/20 17:00 05/09/20 17:00 05/09/20 17:00 05/09/20 17:00 05/09/20 17:00 Oxygen Flow Rate (L/min) [ 91 AMBULATION with Oxygen] Oxygen Flow Rate (L/min) 4 Oxygen Delivery Method Nasal Cannula Weight: 136 lb 10.986 oz Body Mass Index (BMI) 27.5 Finger Stick Blood Glucose 124 Intake and Output for Last 24 Hours 05/07/20 05/08/20 05/09/20 23:59 23:59 23:59 Intake Total 1320 / 1320 1180 / 1180 1210 / 1210 Output Total 0 / 0 Balance 1320 / 1320 1180 / 1180 1210 / 1210 General: Alert, Oriented x3, Cooperative, No apparent distress HEENT: Atraumatic, PERRLA, EOMI, Normocephalic Oral: Moist Mucosa Neck: Supple, No JVD Lungs: Normal air movement, No rhonchi, No wheeze, No rales, Diminished Cardiovascular: Regular rate, Regular Rhythm, Normal S1, Normal S2, No murmurs Abdomen: Soft, Non Tender, Non-Distended, No Hepato-splenomegaly Extremities: No edema, Capillary Refill Less than 3 Seconds Skin: No rashes, No breakdown Neurological: Neuro grossly intact, Sensory exam intact to light touch and pain Psych/Mental Status: Normal Affect, Appropriate Microbiology Past 72 Hours 05/07/20 20:25 Urine, Clean Catch Urine Culture - Preliminary Culture exhibits no growth. 05/04/20 20:30 Blood Culture (Wb) - Anticubital Right Blood Culture - Preliminary No growth in 48 hours. 05/04/20 20:43 Blood Culture (Wb) - Right Hand Blood Culture - Preliminary No growth in 48 hours. Laboratory Results 05/09/20 06:50: WBC 7.0, RBC 3.74 L, Hgb 12.0, Hct 36.6 L, MCV 97.9, MCH 32.1 H, MCHC 32.8, RDW Std Deviation 53.1 H, RDW Coeff of Collin 14.6, Plt Count 305, MPV 9.5 05/09/20 06:50: Sodium 143, Potassium 4.1, Chloride 112 H, Carbon Dioxide 25.0, Anion Gap 6, BUN 12, Creatinine 0.58, Estim Creat Clear Calc 51.97, Est GFR (MDRD) Af Amer 132, Est GFR (MDRD) Non-Af 109, BUN/Creatinine Ratio 20.7 H, Glucose 83, Calcium 7.6 L, Total Bilirubin 0.60, AST 26, ALT 47, Alkaline Phosphatase 69, Total Protein 4.8 L, Albumin 2.4 L, Globulin 2.4, Albumin/Globulin Ratio 1.0 05/09/20 06:50: PT 26.1 H, INR 2.4 Current Medications Acetaminophen (Acetaminophen 325 Mg Tablet) 650 mg PO Q6H PRN PRN PRN Reason: Pain Score 1-10/Temp > 100.7 F Atorvastatin Calcium (Atorvastatin Calcium 20 Mg Tablet) 20 mg PO QHS [facility] Last Admin: 05/08/20 20:42 Dose: 20 mg Documented by: Dexamethasone (Dexamethasone 4 Mg Tablet) 6 mg PO DAILY@0800 [facility] Stop: 05/14/20 08:01 Last Admin: 05/09/20 08:53 Dose: 6 mg Documented by: Hydralazine HCl (Hydralazine 20 Mg/Ml Vial) 5 mg IV Q30M PRN PRN Reason: to maintain BP goals Sodium Chloride () 250 mls @ 15 mls/hr IV .[id number] PRN PRN Reason: Saline Flush Sodium Chloride () 250 mls @ 15 mls/hr IV .[id number] PRN PRN Reason: Additional IVPB Infusion Last Infusion: 05/09/20 11:00 Dose: 0 mls/hr Documented by: Labetalol HCl (Labetalol (Prefilled) 20 Mg/4 Ml) 10 - 20 mg IV Q10M PRN PRN PRN Reason: to Maintain BP Goals Levothyroxine Sodium (Levothyroxine 75 Mcg Tablet) 75 mcg PO DAILY@0800 [facility] Last Admin: 05/09/20 08:54 Dose: 75 mcg Documented by: Melatonin (Melatonin 3 Mg Tablet) 3 mg PO QHS PRN PRN PRN Reason: INSOMNIA Ondansetron HCl (Ondansetron 4 Mg/2 Ml Vial) 4 mg IV Q8H PRN PRN PRN Reason: NAUSEA/VOMITING Pantoprazole Sodium (Pantoprazole Sodium 20 Mg Tablet) 20 mg PO 0800,2200 [facility] Last Admin: 05/09/20 08:54 Dose: 20 mg Documented by: Potassium Chloride (Potassium Chloride 20 Meq Tablet) 20 meq PO 0800,2200 [facility] Last Admin: 05/09/20 08:54 Dose: 20 meq Documented by: Sodium Chloride (0.9% Saline Lock 10 Ml Syringe) 10 - 40 ml IV UD PRN PRN Reason: SALINE FLUSH Last Admin: 05/05/20 09:30 Dose: 10 ml Documented by: Warfarin Sodium (Warfarin 3 Mg Tablet) 3 mg PO DAILY@1700 [facility] Last Admin: 05/09/20 17:06 Dose: 3 mg Documented by: STROKE Vital Signs/Narrative: Vital Signs Temp Pulse Resp BP Pulse Ox 05/09/20 17:00 97.7 F L 77 18 118/78 95 05/09/20 15:01 77 Medical Necessity - Tobacco Use Smoking Status: Never smoker Assessment/Plan All Active Problems (Last Reviewed 05/05/20 @ 01:[address] Hal Quinonez MD) Pneumonia (Acute) Hypoxemia (Acute) COVID-19 (Acute) 1. Acute hypoxic respiratory failure secondary to COVID-19 pneumonia/acute metabolic encephalopathy secondary to Covid and UTI -Continue with Decadron, she has completed remdesivir today -Continue with inhalers. Appreciate pulmonology and ID assistance -Urine cultures showed no growth. She did complete 3 days of Rocephin -PT/OT 2. History of DVT secondary to factor V Leiden deficiency -INR was supratherapeutic. Today to 2.5. -Restart Coumadin 3. Hypothyroidism -Stable -Continue with Synthroid 4. HTN/HLD -Blood pressure is stable -Can likely restart beta-dragan on discharge -Continue with statin DVT: Coumadin Inpatient E&M: 13745 [facility] Hosp L2
--- NOTE | 2020-05-09 19:33 | PCS.PANDOC ---
PANDEMIC DOCUMENTATION INITIATED: Date: 05/08/2020 Time: 220
[2020-05-09] MEDS: Atorvastatin Calcium 20 MG Tablet PO (20:17)
[2020-05-10] VITALS (7 sets, daily range): BP systolic 102–107; BP diastolic 67–77; PULSE 59–118; RESP 18–20; TEMP 36.4–36.6; O2SAT 87–95
[2020-05-10 07:07] LABS: Anion Gap 7 (5-15); BUN 13 mg/dL (7-18); BUN/Creat Ratio 15.2 RATIO (10-20); Calcium,Total 8.5 mg/dL (8.5-10.1); Chloride 106 mmol/L (98-107); Creatinine, Serum 0.86 mg/dL (0.55-1.02); EST Glomerular Filtration Rate 70 mL/min (>60); Est Glom Filt Rate - Afr Amer 85 mL/min (>60); Estimated Creatinine Clearance 60.43 ml/min; Glucose 97 mg/dL (74-106); Potassium 3.6 mmol/L (3.5-5.1); Sodium Level 140 mmol/L (136-145)
[2020-05-10] MEDS: dexAMETHasone 4 MG Tablet 6 MG PO (08:27)
[2020-05-10] MEDS: Pantoprazole Sodium 20 MG Tablet PO (08:28)
[2020-05-10] MEDS: Levothyroxine 75 MCG Tablet PO (08:28)
--- NOTE | 2020-05-10 11:15 | NURSING ---
ambulated patient on 6L O2 per Dr. Serrano request. Pts O2 saturation was 95% while ambulating on 6L O2
--- NOTE | 2020-05-10 12:12 | CASEMGMT ---
Addendum entered by Stoney Delaney 05/10/20 13:31: Portable O2 tank has been delivered. Original Note: [facility] NOTE: Pt qualifies for Home O2-- 2 L/M at rest and 4 L/M w/ambulation. Per Dr Serrano, pt can go up to 6 L/M w/ambulation @ home if needed. Call placed to pt's room. She denies preference of DME company for Home O2 and is agreeable to [employer]. Will obtain script from Dr Serrano and fax to [employer] when it is available. Call placed to Jeanne @ [employer] and she was made aware pt will be discharging home today and will need O2 delivered to room prior to discharge. Brittany GARAY RN, CM
--- NOTE | 2020-05-10 13:25 | PCM.DC ---
- Discharge Diagnoses Current Active Problems: Current Active and Chronic Problems (Last Reviewed 05/05/20 @ 01:[address] Hal Quinonez MD) Pneumonia (Acute) Hypoxemia (Acute) COVID-19 (Acute) Essential (primary) hypertension (Chronic) Pure hypercholesterolemia (Chronic) Palpitations (Chronic) History of left heart catheterization (Chronic ~11/2007) Atherosclerotic heart disease of [place] coronary artery without angina pectoris (Chronic) History of deep vein thrombophlebitis of lower extremity (Chronic) Hx of RLE DVT X 2 Dyspnea on exertion (Chronic) Atypical chest pain (Chronic) Factor V deficiency (Chronic) Hypothyroidism (acquired) (Chronic) Bicuspid aortic valve (Chronic) Chronic back pain (Chronic) History of thyroid cancer (Chronic) GERD (gastroesophageal reflux disease) (Chronic) History of TIA (transient ischemic attack) (Chronic) Vertigo (Chronic) You will use the following diet at home:: Cardiac Your food should be the consistency of: Regular Your liquids should be the consistency of: Regular/Thin Discharge Activity: Return to Normal Activity Call your doctor if you observe: Fever of 101 or Higher, Shortness of breath, Dizziness, Fainting spells, Swelling in the ankles, Chest pain, Increased palpitations (irregular heartbeat) Allergies/Adverse Reactions: Allergies Iodinated Contrast Media [Iodinated Contrast Media - IV Dye] Allergy (Verified 05/04/20 20:09) Hives levofloxacin Adverse Reaction (Verified 05/04/20 20:09) abdominal pain naproxen [From Naprosyn] Adverse Reaction (Verified 05/04/20 20:09) Nausea Medications to take at Discharge Tizanidine HCl [Zanaflex] 4 mg PO BID 10/28/13 hydrocodone 5 mg-acetaminophen 325 mg tablet 1 tab PO PRN PRN tab 02/26/18 liothyronine 5 mcg tablet 5 mcg PO DAILY 03/09/20 Atenolol 12.5 mg PO DAILY 05/04/20 Atenolol [Tenormin (beta dragan)] 25 mg PO DAILY 05/04/20 Levothyroxine Sodium 75 mcg PO DAILY 05/04/20 Multivitamin 1 ea PO DAILY 05/04/20 Omeprazole [Prilosec] 20 mg PO BID 05/04/20 Potassium Chloride 20 meq PO BID 05/04/20 Simvastatin 40 mg PO QHS 05/04/20 Warfarin Sodium 3 mg PO DAILY 05/04/20 Dexamethasone [Decadron] 6 mg PO DAILY #12 tab 05/10/20 The following prescriptions were given: Dexamethasone [Decadron] 6 mg PO DAILY #12 tab Transmission Status: Pending to [facility] Primary Care Physician: Adelina Alvarenga DO [Primary Care Provider] - Please follow up with your Primary Care Physician in: 3-5 days Test Results: Test results from this visit will be discussed in further detail at your follow-up appointment, if applicable. Please Follow Up With: Weston Hopson MD When: 2-4 weeks
--- NOTE | 2020-05-10 21:54 | PCM.DC.SUM ---
Discharge Date and Diagnosis - Problem List Patient Problems: Active and Suspected Problems (Last Reviewed 05/05/20 @ 01:[address] Hal Quinonez MD) Pneumonia (Acute) Hypoxemia (Acute) COVID-19 (Acute) Date of Admission: 05/04/20 Date of Discharge: 05/10/20 - Primary Discharge Diagnosis Acute Problems: Active Problems (Last Reviewed 05/05/20 @ 01:[address] Hal Quinonez MD) Pneumonia (Acute) Hypoxemia (Acute) COVID-19 (Acute) - Secondary Discharge Diagnosis Chronic Problems: Chronic Problems (Last Reviewed 05/05/20 @ 01:[address] Hal Quinonez MD) Essential (primary) hypertension (Chronic) Pure hypercholesterolemia (Chronic) Palpitations (Chronic) History of left heart catheterization (Chronic ~11/2007) Atherosclerotic heart disease of [place] coronary artery without angina pectoris (Chronic) History of deep vein thrombophlebitis of lower extremity (Chronic) Hx of RLE DVT X 2 Dyspnea on exertion (Chronic) Atypical chest pain (Chronic) Factor V deficiency (Chronic) Hypothyroidism (acquired) (Chronic) Bicuspid aortic valve (Chronic) Chronic back pain (Chronic) History of thyroid cancer (Chronic) GERD (gastroesophageal reflux disease) (Chronic) History of TIA (transient ischemic attack) (Chronic) Vertigo (Chronic) Hospital Course and Treatment Imaging Results: Clinical Impression(s) from Imaging Studies Brain CT 05/04/20 20:44 IMPRESSION: Mild cortical atrophy and periventricular white matter ischemic change.. No evidence for acute bleed. If concern for acute infarct MRI recommended Electronically Signed: Mario Schafer MD at 21:42 EST , Service support , Chest X-Ray 05/04/20 21:10 IMPRESSION: Findings suspicious for Covid 19 pneumonia more severe in the lower lobes. Clinical correlation recommended Electronically Signed: Mario Schafer MD at 21:40 EST , Service support , Brain CT 05/05/20 09:23 IMPRESSION: Chronic involutional changes of the brain. N.B. : The above information has been verbally conveyed by Efrain Klein to ANDREY ISLAS on 05/05/2020 09:41:34 (ET). Electronically Signed: Efrain Ernie, at 9:42 EST , Service support , ADDENDUM: 05/05/20 0949 IMPRESSION: Chronic involutional changes of the brain. N.B. : The above information has been verbally conveyed by Efrain Klein to ANDREY ISLAS on 05/05/2020 09:41:34 (ET). Electronically Signed: Efrain Klein, at 9:42 EST , Service support , Brain MRI 05/05/20 09:51 IMPRESSION: Involutional changes of the brain, as described above. No acute infarct. Electronically Signed: Timmy Harris MD at 11:43 EST Tel , Service support , Neck MRA 05/05/20 09:51 IMPRESSION: Normal bilateral cervical carotid and vertebral arteries. Electronically Signed: Timmy Harris MD at 12:26 EST Tel , Service support , Head MRA 05/05/20 10:17 IMPRESSION: Normal MRA of the head Electronically Signed: Timmy Harris MD at 11:44 EST Tel , Service support , Consults: ID Pulmonology Operations: None Procedures: None Summary of Care Provided: Per HPI: The patient is a 70 year old F with a significant history of hypothyroidism; hypertension; factor V Leiden deficiency; and DVT who presents emergency department with malaise x3 weeks. Associated event symptoms is shakiness; weakness and fatigue. A feta patient has a worsening of her chronic lower back pain x2 days. Reportedly in March 2020 she had a kyphoplasty secondary to compression fracture. Reportedly she saw her PCP and had liver enzymes were noted to be elevated. Hospital Course: 1. Acute hypoxic respiratory failure secondary to COVID-19 pneumonia/acute metabolic encephalopathy secondary to Covid and UTI -Continue with Decadron, she has completed remdesivir yesterday -Continue with inhalers. Appreciate pulmonology and ID assistance -Urine cultures showed no growth. She did complete 3 days of Rocephin -PT/OT. During her stay there was some concern for a stroke alert given to decreased mentation [facility] neurology was consulted and they felt that it was not a stroke. She had all the appropriate imaging all of which was negative for stroke and was felt to be secondary to her metabolic encephalopathy from a Covid -On the day of discharge she was ambulating and was able to maintain her oxygen sats between 4 to 6 L nasal cannula. She was discharged home on an oxygen concentrator. I did discuss the plan with discharge for her today and she expressed understanding of the risk and benefits of going home today. Completed her remdesivir course and will need 4 more days of Decadron. Do recommend she follow-up with her PCP in 3 to 5 days. 2. History of DVT secondary to factor V Leiden deficiency -INR was supratherapeutic. Today to 2.5. -Restart Coumadin 3. Hypothyroidism -Stable -Continue with Synthroid 4. HTN/HLD -Blood pressure is stable -Can likely restart beta-dragan on discharge -Continue with statin Patient Problems: Active and Suspected Problems (Last Reviewed 05/05/20 @ 01:[address] Hal Quinonez MD) Pneumonia (Acute) Hypoxemia (Acute) COVID-19 (Acute) - Physical Exam Vitals/I&O's: Vital Signs Temp Pulse Resp BP Pulse Ox 97.6 F L 118 H 20 H 102/77 95 05/10/20 14:04 05/10/20 14:04 05/10/20 14:04 05/10/20 14:04 05/10/20 14:04 Oxygen Flow Rate (L/min) [ 3 AMBULATING on Room Air] Oxygen Flow Rate (L/min) [ 4 AMBULATION with Oxygen] Oxygen Flow Rate (L/min) 2 Oxygen Delivery Method Nasal Cannula Weight: 136 lb 10.986 oz Body Mass Index (BMI) 27.5 Finger Stick Blood Glucose 124 Intake and Output for Last 24 Hours 05/08/20 05/09/20 05/10/20 23:59 23:59 23:59 Intake Total 1180 / 1180 1810 / 1810 540 / 540 Balance 1180 / 1180 1810 / 1810 540 / 540 General: Alert, Oriented x3, Cooperative, No apparent distress HEENT: Atraumatic, PERRLA, EOMI, Normocephalic Oral: Moist Mucosa Neck: Supple, No JVD Lungs: Normal air movement, No rhonchi, No wheeze, No rales, Diminished Cardiovascular: Regular rate, Regular Rhythm, Normal S1, Normal S2, No murmurs Abdomen: Soft, Non Tender, Non-Distended, No Hepato-splenomegaly Extremities: No edema, Capillary Refill Less than 3 Seconds Skin: No rashes, No breakdown Neurological: Neuro grossly intact, Sensory exam intact to light touch and pain Psych/Mental Status: Normal Affect, Appropriate Microbiology Past 72 Hours 05/07/20 20:25 Urine, Clean Catch Urine Culture - Final Culture exhibits no growth. 05/04/20 20:30 Blood Culture (Wb) - Anticubital Right Blood Culture - Final No growth in 5 days. 05/04/20 20:43 Blood Culture (Wb) - Right Hand Blood Culture - Final No growth in 5 days. Laboratory Results 05/10/20 06:18: Sodium 140, Potassium 3.6, Chloride 106, Carbon Dioxide 27.0, Anion Gap 7, BUN 13, Creatinine 0.86, Estim Creat Clear Calc 60.43, Est GFR (MDRD) Af Amer 85, Est GFR (MDRD) Non-Af 70, BUN/Creatinine Ratio 15.2, Glucose 97, Calcium 8.5 Discharge Activity: Return to Normal Activity Call your doctor if you observe: Fever of 101 or Higher, Shortness of breath, Dizziness, Fainting spells, Swelling in the ankles, Chest pain, Increased palpitations (irregular heartbeat) Home Medications: Medications to take at Discharge Tizanidine HCl [Zanaflex] 4 mg PO BID 10/28/13 hydrocodone 5 mg-acetaminophen 325 mg tablet 1 tab PO PRN PRN tab 02/26/18 liothyronine 5 mcg tablet 5 mcg PO DAILY 03/09/20 Atenolol 12.5 mg PO DAILY 05/04/20 Atenolol [Tenormin (beta dragan)] 25 mg PO DAILY 05/04/20 Levothyroxine Sodium 75 mcg PO DAILY 05/04/20 Multivitamin 1 ea PO DAILY 05/04/20 Omeprazole [Prilosec] 20 mg PO BID 05/04/20 Potassium Chloride 20 meq PO BID 05/04/20 Simvastatin 40 mg PO QHS 05/04/20 Warfarin Sodium 3 mg PO DAILY 05/04/20 Dexamethasone [Decadron] 6 mg PO DAILY #12 tab 05/10/20 Following Prescriptions Were Given to Patient: Dexamethasone [Decadron] 6 mg PO DAILY #12 tab Transmission Status: Received by [facility] Primary Care Physician: Adelina Alvarenga DO [Primary Care Provider] - Please follow up with your Primary Care Physician in: 3-5 days Please Follow Up With: Emelina Argueta ORTHOTICS PROSTHETICS ASSISTANT, ORTHOTICS PROSTHETICS ASSISTANT-C When: 2-4 weeks Please Follow Up With: Adelina Alvarenga DO Disposition: Home Minutes spent on discharge:: 35 Patient Condition:: Stable Medical Necessity - Tobacco Use Smoking Status: Never smoker Meaningful Use Info Meaningful Use Diagnoses (Choose all that apply): None applicable Inpatient E&M: 13885 Disch Hosp
--- NOTE | 2020-05-11 14:32 | CASEMGMT ---
Addendum entered by Elsa Omalley 05/11/20 15:08: Pt states has been 'doing good' since discharge. Pt states no questions regarding discharge instructions/medications at this time. Pt states has f/u appt scheduled on 05/18/2020. Pt states that she has been checking her pulse ox at home and has been staying above 90%. Pt states I don't think I am going to need this oxygen very long and to be honest, I don't really want it.' Pt aware that her PCP office can re-check her when she f/u's next week and can cancel order at that time, if pt no longer needs, voices understanding. Pt states no further questions/concerns/needs at this time. Nickie GONZALEZ CM Original Note: LISA WILSON Discharge F/U Phone Call LACE: 12 Strata: 3 Discharge date: 05/10/2020 Call date: 05/11/2020 Call time: [phone] Attempted to reach pt without success at this time, message left for pt to call this LISA WILSON back if/when able. Nickie GONZALEZ CM Admission dx: Acute Hypoxemic Respiratory Insufficiency
== END 2020-05-10 15:49 | disposition home or self-care (01) | DRG 177 ==
LOC: ED 23:19 → MS2 05-05 00:07 → PCU 05-05 11:18
PROVIDERS: Emergency Medicine; Internal Medicine Critical Care Medicine; Internal Medicine Infectious Disease; Student in an Organized Health Care Education/Training Program; Admitting Provider Hospitalist; Emergency Provider Emergency Medicine; PCP Family Medicine; Visit Provider Family Medicine
DX: U07.1 COVID-19 (principal); J12.89 Other viral pneumonia; G93.41 Metabolic encephalopathy; J96.01 Acute respiratory failure with hypoxia; Q23.1 Congenital insufficiency of aortic valve; D68.51 Activated protein C resistance; N39.0 Urinary tract infection, site not specified; I95.9 Hypotension, unspecified; E78.00 Pure hypercholesterolemia, unspecified; I25.10 Atherosclerotic heart disease of native coronary artery without angina pectoris; I10 Essential (primary) hypertension; K21.9 Gastro-esophageal reflux disease without esophagitis; G89.29 Other chronic pain; M54.5 Low back pain; E03.9 Hypothyroidism, unspecified; E78.5 Hyperlipidemia, unspecified; Z86.73 Personal history of transient ischemic attack (TIA), and cerebral infarction without residual deficits; Z85.850 Personal history of malignant neoplasm of thyroid; Z86.718 Personal history of other venous thrombosis and embolism; Z86.72 Personal history of thrombophlebitis; Z79.01 Long term (current) use of anticoagulants; Z79.890 Hormone replacement therapy; Z80.3 Family history of malignant neoplasm of breast; Z82.3 Family history of stroke; Z82.49 Family history of ischemic heart disease and other diseases of the circulatory system; Z90.49 Acquired absence of other specified parts of digestive tract
CPT/HCPCS: 36415; 70450; 70544; 70547; 70551; 71045; 80048; 80053; 80061; 81001; 82962; 83036; 83605; 83615; 83735; 84145; 84439; 84443; 84481; 84484; 85025; 85027; 85379; 85610; 85652; 86140; 87040; 87086; 87426; 87449; 87633; 87635; 92523; 92610; 93005; 97110; 97116; 97163; 97166; 97530; 97535; 99284; J7030; J7040; J7050; A4216; U0002

== ENCOUNTER → 2020-06-14 08:31 | Outpatient (CLI) | payer MEDICARE, OTHER, SELFPAY ==
[2020-03-09 10:34] VITALS: BMI 28.8
[2020-05-05 01:35] VITALS: BMI 27.5
[2020-06-14 12:37] LABS: Prothrombin Time (Protime)PT. 22.6 SECONDS (11.7-14.9)
[2020-06-14 12:57] LABS: T4 Free Direct 1.21 ng/dL (0.76-1.46); Thyroid Stim Hormone (TSH) 5.84 uIU/mL (0.358-3.74)
== END ==
PROVIDERS: PCP Family Medicine; Visit Provider Family Medicine
DX: E03.9 Hypothyroidism, unspecified (principal); D68.2 Hereditary deficiency of other clotting factors
CPT/HCPCS: 36415; 84439; 84443; 84481; 85610

== ENCOUNTER → 2020-07-06 10:32 | Outpatient (CLI) | payer MEDICARE, OTHER, SELFPAY ==
--- NOTE | 2020-07-06 10:36 | BI_ITS ---
MAMMOGRAPHY - BILATERAL SCREENING REASON FOR EXAM: Female, 70 years old. Routine annual screening examination. PERTINENT HISTORY: Aunts with breast cancer. Remote right excisional breast biopsy. TECHNIQUE: Digital bilateral breast brayan (3D mammographic acquisition) in the CC and MLO projections. 2-D mediolateral oblique (MLO) and craniocaudad (CC) views of both breasts were obtained. CAD: Full Field Digital Mammography with Computer Added Detection was performed. COMPARISON: Comparison is made with prior study dated 08/12/2019 and 08/10/2018. FINDINGS: Breast Composition: There are scattered areas of fibroglandular density. There are no dominant masses or suspicious calcifications. Stable small benign-appearing bilateral axillary nodes. No other significant abnormalities are identified. There has been no significant change since the prior study. BI/SCRN MAMM (CAD)W/BRAYAN BILAT IMPRESSION: Stable bilateral screening mammogram. Yearly follow-up mammogram recommended. (A) ASSESSMENT CATEGORY: BIRADS Category 2: Benign. A letter regarding these results will be sent to the patient by the facility within 30 days. Approximately 10% of breast cancers are not detected by mammography. A normal mammogram should not delay biopsy of a clinically suspicious abnormality. [id number] Electronically Signed: Efrain Klein MD at 11:25 EST , Service support ,
== END ==
PROVIDERS: PCP Family Medicine; Referring Provider Family Medicine; Visit Provider Family Medicine
DX: Z12.31 Encounter for screening mammogram for malignant neoplasm of breast (principal); Z80.3 Family history of malignant neoplasm of breast
CPT/HCPCS: 77063; 77067

== ENCOUNTER → 2020-07-19 08:26 | Outpatient (CLI) | payer MEDICARE, OTHER, SELFPAY ==
[2020-05-05 01:35] VITALS: BMI 27.5
[2020-07-19 12:55] LABS: International Normalized Ratio 2.2; Prothrombin Time (Protime)PT. 24.2 SECONDS (11.7-14.9)
[2020-07-19 13:12] LABS: Free T3 3.8 pg/mL (2.18-3.98); T4 Free Direct 1.27 ng/dL (0.76-1.46); Thyroid Stim Hormone (TSH) 0.34 uIU/mL (0.358-3.74)
== END ==
PROVIDERS: PCP Family Medicine; Visit Provider Family Medicine
DX: E03.9 Hypothyroidism, unspecified (principal); D68.2 Hereditary deficiency of other clotting factors; Z79.01 Long term (current) use of anticoagulants; I82.401 Acute embolism and thrombosis of unspecified deep veins of right lower extremity; Z51.81 Encounter for therapeutic drug level monitoring
CPT/HCPCS: 36415; 84439; 84443; 84481; 85610

== ENCOUNTER → 2020-08-08 15:11 | Outpatient (CLI) | payer MEDICARE, OTHER, SELFPAY ==
--- NOTE | 2020-08-08 15:14 | RAD_ITS ---
STUDY: X-RAY - LUMBAR SPINE REASON FOR EXAM: Female, 70 years old. FALL TECHNIQUE: 3 view(s) of the lumbar spine were obtained. COMPARISON: None FINDINGS: There is an exaggerated lumbar lordosis. There is mild scoliosis, convexity to the left. There is a normal alignment of the vertebrae. There is diffuse demineralization with multi-level endplate spondylosis. There is multi-level degenerative disc disease with multi-level disc space narrowing. Multilevel vacuum phenomena seen through the mid upper lumbar spine. There is compression fracture of T11 vertebral body with vertebroplasty. The soft tissue structures are unremarkable. RAD/Lumbar Spine 2 or 3 Views IMPRESSION: Osteopenia along with multilevel disc degenerative disease. Vertebroplasty with compression fractures of T11. No malalignment. No distinct fracture of the lumbar spine seen. Electronically Signed: Layla Paul MD at 0:30 EST , Service support ,
== END ==
PROVIDERS: PCP Family Medicine; Referring Provider Anesthesiology Pain Medicine; Visit Provider Anesthesiology Pain Medicine
DX: M51.36 Other intervertebral disc degeneration, lumbar region (principal); M85.88 Other specified disorders of bone density and structure, other site; W19.XXXA Unspecified fall, initial encounter; Y93.9 Activity, unspecified; Y92.9 Unspecified place or not applicable; Y99.9 Unspecified external cause status
CPT/HCPCS: 72100

== ENCOUNTER → 2020-08-18 07:44 | Outpatient (CLI) | payer MEDICARE, OTHER, SELFPAY ==
--- NOTE | 2020-08-18 07:45 | CT_ITS ---
STUDY: CT BRAIN WITHOUT CONTRAST REASON FOR EXAM: Female, 70 years old. MEMORY CHANGE/FALL RADIATION DOSAGE (If Supplied By Facility): CTDIvol = ( 44.99 ) mGy, DLP = ( 796.11 ) mGycm TECHNIQUE: Transaxial CT imaging of the brain was performed without administration of intravenous contrast material. Individualized dose optimization techniques were used for this CT. COMPARISON: No relevant priors. FINDINGS: Normal soft tissue structures. Normal calvarium. Normal size ventricles and extra-axial spaces for the patient''s age. Normal white matter tracts of the cerebral hemispheres. Normal basal ganglia and thalami. Normal brainstem. Normal cerebellum. There is no intracranial hemorrhage. There are no findings of an acute ischemic infarction. Normal visualized paranasal sinuses. CT/Brain/Head without Contrast IMPRESSION: Normal unenhanced CT scan of the brain. Electronically Signed: Efrain Klein MD at 10:53 EDT , Service support ,
== END ==
PROVIDERS: PCP Family Medicine; Referring Provider Family Medicine; Visit Provider Family Medicine
DX: R41.3 Other amnesia (principal); R20.2 Paresthesia of skin; W19.XXXA Unspecified fall, initial encounter
CPT/HCPCS: 70450

== ENCOUNTER 2020-10-16 11:52 | Outpatient (RCR) | payer MEDICARE, OTHER, SELFPAY ==
[2020-05-05 01:35] VITALS: BMI 27.5
[2020-10-16 12:52] LABS: Absolute Lymphocyte Count 1.07 X10^3/uL (0.83-4.51); Absolute Neutrophil Count 2.6 X10^3/uL (2.0-7.7); Basophil# 0.03 X10^3/uL; Basophil% 0.7 % (0-1); Eosinophil# 0.06 X10^3/uL; Eosinophils% 1.4 % (0-5); Hematocrit 43.8 % (37-47); Hemoglobin 14.2 g/dL (12.0-15.0); Lymphocyte # 1.07 X10^3/ul (0.83-4.51); Lymphocyte % 25.4 % (19-41); Mean Corp Hgb Conc 32.4 g/dL (32-36); Mean Corpuscular Hgb 31.1 pg (27.0-32.0); Mean Corpuscular Volume 96.1 fL (81-99); Mean Platelet Vol. 9.7 fl (6.2-12.0); Monocyte# 0.45 X10^3/uL; Monocyte% 10.7 % (0-10); NRBC Flagged by Analyzer 0 % (0-5); Neutrophil # 2.59 X10^3/uL (2.7-7.7); Neutrophil % 61.3 % (47-70); Platelet Count 250 K/mm3 (150-450); RBC Distribution Width CV 14.3 % (11.6-14.6); RBC Distribution Width SD 50.5 fl (35.1-43.9); Red Blood Count 4.56 M/mm3 (4.2-5.4); White Blood Count 4.2 K/mm3 (4.4-11.0)
[2020-10-16 13:04] LABS: International Normalized Ratio 2.4; Prothrombin Time (Protime)PT. 25.4 SECONDS (11.7-14.9)
[2020-10-16 13:42] LABS: ALB/GLOB Ratio 1.2 RATIO (0.9-2.4); AST(SGOT) 21 U/L (15-37); Alanine Aminotransfer ALT/SGPT 31 U/L (13-56); Albumin, Serum 3.4 g/dL (3.2-5.0); Alkaline Phosphatase 115 U/L (45-117); Anion Gap 4 (5-15); BUN 12 mg/dL (7-18); BUN/Creat Ratio 16.1 RATIO (10-20); Calcium,Total 8.3 mg/dL (8.5-10.1); Chloride 108 mmol/L (98-107); Creatinine, Serum 0.75 mg/dL (0.55-1.02); EST Glomerular Filtration Rate 82 mL/min (>60); Est Glom Filt Rate - Afr Amer 99 mL/min (>60); Free T3 2.9 pg/mL (2.18-3.98); Globulin 2.9 g/dL (2.2-4.2); Glucose 79 mg/dL (74-106); Potassium 4.6 mmol/L (3.5-5.1); Protein, Total 6.3 g/dL (6.4-8.2); Sodium Level 140 mmol/L (136-145); T4 Free Direct 1.17 ng/dL (0.76-1.46); Thyroid Stim Hormone (TSH) 0.11 uIU/mL (0.358-3.74)
== END 2020-10-16 18:00 | disposition home or self-care (01) ==
LOC: LAB 11:52
PROVIDERS: PCP Family Medicine; Visit Provider Family Medicine
DX: E03.9 Hypothyroidism, unspecified (principal); D68.2 Hereditary deficiency of other clotting factors; Z51.81 Encounter for therapeutic drug level monitoring; Z79.01 Long term (current) use of anticoagulants
CPT/HCPCS: 36415; 80053; 84439; 84443; 84481; 85025; 85610

== ENCOUNTER → 2020-11-01 16:39 | Outpatient (CLI) | payer MEDICARE, OTHER, SELFPAY ==
[2020-10-27 13:01] VITALS: BMI 27.9
--- NOTE | 2020-11-01 16:41 | RAD_ITS ---
STUDY: X-RAY - LUMBAR SPINE REASON FOR EXAM: Female, 70 years old. LFT HIP PAIN TECHNIQUE: 3 view(s) of the lumbar spine were obtained. COMPARISON: None FINDINGS: Normal lumbar lordosis. There is mild scoliosis with convexity to the left. There is a normal alignment of the vertebrae. There is multilevel endplate spondylosis of the lumbar vertebrae. There is multi-level degenerative disc disease with multi-level disc space narrowing. There is multilevel vacuum phenomenon from T12 through L3. There is no demonstrated fracture through the lumbar spine. There is a moderate to severe compression fracture through the T11 with vertebral plasty at this level. The soft tissue structures are unremarkable. RAD/Lumbar Spine 2 or 3 Views IMPRESSION: Degenerative disease as described. No acute fracture or spondylolisthesis of the lumbar spine. Compression fracture of T11 with vertebral plasty. Electronically Signed: Layla Paul MD at 1:01 EDT , Service support ,
--- NOTE | 2020-11-01 16:53 | RAD_ITS ---
STUDY: X-RAY - PELVIS AND LEFT HIP REASON FOR EXAM: Female, 70 years old. LFT HIP PAIN TECHNIQUE: 3 views of the pelvis and hip. COMPARISON: None. FINDINGS: There is a non-specific bowel gas pattern. Normal visualized soft tissue structures. There is narrowing with cortical sclerosis and osteophyte formation of the sacroiliac joint consistent with degenerative osteoarthritic changes. Normal bilateral superior and inferior pubic rami. Normal pubic symphysis. Normal bilateral ischial tuberosities. Normal visualized femoral head. Normal acetabulum. There is mild articular joint space narrowing of the hip. RAD/HIP, UNI W/ Pelvis 2-3 Views IMPRESSION: Mild degenerative disease as described. Otherwise normal x-ray examination of the pelvis and hip. Specifically, no acute fracture or subluxation. Electronically Signed: Layla Paul MD at 0:46 EDT , Service support ,
== END ==
PROVIDERS: PCP Family Medicine; Referring Provider Family Medicine; Visit Provider Family Medicine
DX: M25.552 Pain in left hip (principal); M54.5 Low back pain
CPT/HCPCS: 72100; 73502

== ENCOUNTER 2021-01-18 08:38 | Outpatient (RCR) | payer MEDICARE, OTHER, SELFPAY ==
[2020-10-27 13:01] VITALS: BMI 27.9
[2021-01-18 09:25] LABS: International Normalized Ratio 2.6; Prothrombin Time (Protime)PT. 26.7 SECONDS (11.7-14.9)
[2021-01-18 09:59] LABS: T4 Free Direct 1.43 ng/dL (0.76-1.46); Thyroid Stim Hormone (TSH) 0.02 uIU/mL (0.358-3.74)
== END 2021-01-18 18:00 | disposition home or self-care (01) ==
LOC: LAB 08:38
PROVIDERS: PCP Family Medicine; Referring Provider Family Medicine; Visit Provider Family Medicine
DX: E03.9 Hypothyroidism, unspecified (principal); D68.2 Hereditary deficiency of other clotting factors; Z51.81 Encounter for therapeutic drug level monitoring; Z79.01 Long term (current) use of anticoagulants
CPT/HCPCS: 36415; 84439; 84443; 84481; 85610

== ENCOUNTER → 2021-02-21 10:14 | Outpatient (CLI) | payer MEDICARE, OTHER, SELFPAY ==
--- NOTE | 2021-02-21 10:23 | RAD_ITS ---
STUDY: X-RAY - PELVIS AND RIGHT HIP REASON FOR EXAM: Female, 70 years old. Hip pain. TECHNIQUE: 3 views of the pelvis and hip. COMPARISON: 11/01/2020. FINDINGS: There is a non-specific bowel gas pattern. Normal visualized soft tissue structures. Osteopenia. Normal bilateral iliac wings, sacroiliac joints and visualized sacrum. Normal bilateral superior and inferior pubic rami. Stable arthrosis of the symphysis pubis. Normal bilateral ischial tuberosities. Stable mild arthrosis in both hips. RAD/HIP, UNI W/ Pelvis 2-3 Views IMPRESSION: Osteopenia with stable arthrosis of the symphysis pubis and both hips. Electronically Signed: Jt Nam MD at 13:04 EDT , Service support ,
== END ==
PROVIDERS: PCP Family Medicine; Referring Provider Anesthesiology Pain Medicine; Visit Provider Anesthesiology Pain Medicine
DX: M25.559 Pain in unspecified hip (principal)
CPT/HCPCS: 73502

== ENCOUNTER → 2021-03-05 13:36 | Outpatient (CLI) | payer MEDICARE, OTHER, SELFPAY ==
[2021-03-05 14:05] LABS: International Normalized Ratio 2.8; Prothrombin Time (Protime)PT. 28.5 SECONDS (11.7-14.9)
[2021-03-05 14:31] LABS: Free T3 2.4 pg/mL (2.18-3.98); T4 Free Direct 1.41 ng/dL (0.76-1.46)
== END ==
PROVIDERS: PCP Family Medicine; Referring Provider Family Medicine; Visit Provider Family Medicine
DX: E03.9 Hypothyroidism, unspecified (principal); Z79.01 Long term (current) use of anticoagulants
CPT/HCPCS: 36415; 84439; 84443; 84481; 85610

== ENCOUNTER → 2021-04-09 14:04 | Outpatient (CLI) | payer MEDICARE, OTHER, SELFPAY ==
--- NOTE | 2021-04-09 14:24 | RAD_ITS ---
STUDY: XR Abdomen 1 View 04/09/2021 2:31 PM REASON FOR EXAM: Female, 71 years old. ABDOMINAL PAIN ABD PAIN TECHNIQUE: XR Abdomen 1 View COMPARISON: None FINDINGS: There is scoliosis of the lumbar spine. Bone glue at T11. There is a moderate amount of colonic fecal material. There is no demonstrated free abdominal air. The visualized liver, spleen and kidneys are grossly normal in size and morphology. Normal soft tissue structures. There are diffuse degenerative changes of the visualized lumbar spine. RAD/Abdomen Single View IMPRESSION: Constipation. Electronically Signed: Darshan Medina MD at 15:01 EST , Service support ,
--- NOTE | 2021-04-09 14:24 | RAD_ITS ---
STUDY: X-RAY CHEST REASON FOR EXAM: Female, 71 years old. CHEST PAIN COUGH TECHNIQUE: XR Chest 2 Views COMPARISON: 12.3.20 FINDINGS: There are bilateral pleural effusions. There are bilateral infiltrates. Normal size heart. Normal mediastinum and dolores. Normal visualized pulmonary arteries. There is atherosclerotic calcification of the aortic arch with tortuosity. There are diffuse degenerative changes of the visualized thoracic spine. There is degenerative osteoarthritis of the bilateral shoulders. T12 bone glue. There is a hiatal hernia. RAD/Chest PA and Lateral IMPRESSION: There are no acute findings. Electronically Signed: Darshan Medina MD at 15:02 EST , Service support ,
[2021-04-09 15:09] LABS: Hematocrit 43.2 % (37-47); Hemoglobin 14.3 g/dL (12.0-15.0); Mean Corp Hgb Conc 33.1 g/dL (32-36); Mean Corpuscular Hgb 31.6 pg (27.0-32.0); Mean Corpuscular Volume 95.6 fL (81-99); Mean Platelet Vol. 10.3 fl (6.2-12.0); Platelet Count 212 K/mm3 (150-450); RBC Distribution Width CV 13.1 % (11.6-14.6); RBC Distribution Width SD 46.1 fl (35.1-43.9); Red Blood Count 4.52 M/mm3 (4.2-5.4); White Blood Count 4.5 K/mm3 (4.4-11.0)
[2021-04-09 15:16] LABS: International Normalized Ratio 2.3; Prothrombin Time (Protime)PT. 24.7 SECONDS (11.7-14.9)
[2021-04-09 16:02] LABS: ALB/GLOB Ratio 1.1 RATIO (0.9-2.4); AST(SGOT) 21 U/L (15-37); Alanine Aminotransfer ALT/SGPT 26 U/L (13-56); Albumin, Serum 3.5 g/dL (3.2-5.0); Alkaline Phosphatase 111 U/L (45-117); Anion Gap 6 (5-15); BUN 8 mg/dL (7-18); BUN/Creat Ratio 9.9 RATIO (10-20); Calcium,Total 8.9 mg/dL (8.5-10.1); Chloride 110 mmol/L (98-107); Creatinine, Serum 0.81 mg/dL (0.55-1.02); EST Glomerular Filtration Rate 75 mL/min (>60); Est Glom Filt Rate - Afr Amer 90 mL/min (>60); Globulin 3.2 g/dL (2.2-4.2); Glucose 88 mg/dL (74-106); Lipase 156 U/L (73-393); Potassium 4.1 mmol/L (3.5-5.1); Protein, Total 6.7 g/dL (6.4-8.2); Sodium Level 141 mmol/L (136-145)
== END ==
PROVIDERS: PCP Family Medicine; Referring Provider Family Medicine; Visit Provider Family Medicine
DX: D68.2 Hereditary deficiency of other clotting factors (principal); R10.9 Unspecified abdominal pain; Z79.01 Long term (current) use of anticoagulants; R05.9 Cough, unspecified
CPT/HCPCS: 36415; 71046; 74018; 80053; 83690; 85027; 85610

== ENCOUNTER → 2021-04-16 09:54 | Outpatient (CLI) | payer MEDICARE, OTHER, SELFPAY ==
--- NOTE | 2021-04-16 09:57 | NM_ITS ---
CLINICAL: 71-year-old female with reported history of abdominal pain. SEMI-SOLID PHASE 99m Tc SULFUR COLLOID GASTRIC EMPTYING STUDY COMPARISON: Previous semisolid phase gastric emptying study report 12/07/2014 FINDINGS: The patient was administered 1.1 mCi of 99m Tc sulfur colloid mixed with oatmeal and consumed per os. Image acquisitions in the anterior-posterior projections for a total of 60 minutes. There is prompt visualization of the stomach. There is no gastroesophageal reflux identified. The T ? linear fit was calculated to be 55.04 minutes, (Normal: 12-56 minutes) compared to 32.6 minutes defined on the examination dated 12/07/2014. NM/Gastric Emptying Study IMPRESSION: 1. NORMAL 99m Tc sulfur colloid semi-solid phase (oatmeal) gastric emptying imaging examination. A. There is upper limits of normal semi-solid phase gastric emptying compared to normal controls with maintained first order kinetics throughout all components of the examination. (Asia et al, J Nucl Med Tech 38: 186, 2010). B. Overall compared to the previous semisolid phase gastric emptying study dated 12/07/2014, there is no significant interval change. Electronically Signed: Timmy Whitmore DO at 23:04 EST Tel , Service support ,
== END ==
PROVIDERS: PCP Family Medicine; Referring Provider Family Medicine; Visit Provider Family Medicine
DX: R10.9 Unspecified abdominal pain (principal); K59.00 Constipation, unspecified
CPT/HCPCS: 78264; A9541

== ENCOUNTER → 2021-04-25 16:46 | Outpatient (CLI) | payer MEDICARE, OTHER, SELFPAY ==
--- NOTE | 2021-04-25 16:49 | RAD_ITS ---
STUDY: X-RAY - LUMBAR SPINE REASON FOR EXAM: Female, 71 years old. BACK PAIN TECHNIQUE: 2 view(s) of the lumbar spine were obtained. COMPARISON: 11/01/2020 FINDINGS: Normal lumbar lordosis. There is no substantial scoliosis. Degenerative retrolisthesis at L1-L2, L2-L3 and L3-L4 with exaggerated lumbar lordosis. There is diffuse demineralization with multi-level endplate spondylosis. There is multi-level degenerative disc disease with multi-level disc space narrowing. There is no demonstrated lumbar fracture. T11 kyphoplasty. The soft tissue structures are unremarkable. RAD/Lumbar Spine 2 or 3 Views IMPRESSION: 1. Stable degenerative changes. Electronically Signed: Rory Warner MD (Brooks) at 15:43 EST , Service support ,
--- NOTE | 2021-04-25 16:52 | RAD_ITS ---
STUDY: X-RAY - THORACIC SPINE REASON FOR EXAM: Female, 71 years old. BACK PAIN TECHNIQUE: 3 view(s) of the thoracic spine were obtained. COMPARISON: None. FINDINGS: There is an increase in the lower thoracic kyphosis. There is no substantial scoliosis. There is demineralization of the thoracic spine with endplate spondylosis. There is multilevel disc space narrowing of the thoracic spine. T11 vertebral augmentation with some venous contrast along the anterior soft tissues. No additional compression fracture. The soft tissue structures are unremarkable. RAD/Thoracic Spine 3 Views IMPRESSION: 1. Multilevel degenerative disc disease. 2. T11 vertebral augmentation. 3. Exaggerated thoracic kyphosis in lower thoracic spine. Electronically Signed: Rory Warner MD ([place]) at 11:00 EST , Service support ,
== END ==
PROVIDERS: PCP Family Medicine; Referring Provider Anesthesiology Pain Medicine; Visit Provider Anesthesiology Pain Medicine
DX: M54.9 Dorsalgia, unspecified (principal)
CPT/HCPCS: 72072; 72100

== ENCOUNTER → 2021-05-07 14:09 | Outpatient (CLI) | payer MEDICARE, OTHER, SELFPAY ==
--- NOTE | 2021-05-07 14:12 | CT_ITS ---
STUDY: CT ABDOMEN AND PELVIS WITH CONTRAST REASON FOR EXAM: Female, 71 years old. Diffuse abdominal pain, nausea RADIATION DOSAGE (If Supplied By Facility): CTDIvol = ( 13.625 ) mGy, DLP = ( 679.10 ) mGycm TECHNIQUE: Transaxial images were obtained from the dome of the diaphragm to the symphysis pubis without oral contrast. Oral and amp; IV Read i-CAT and amp; 100mL Isovue-300 was administered. Sagittal and coronal images were reconstructed. Individualized dose optimization techniques were used for this CT. COMPARISON: None. FINDINGS: The visualized lung bases are unremarkable. The visualized portions of the heart are within normal limits. Liver is unremarkable aside from scattered simple cysts. No discrete lesion. There is a bowel loop interposed between the anterior edge of the liver and the peritoneal surface which can cause pain in the right clinical setting. There is non-visualization of the gallbladder, which may be secondary to either contraction or a prior cholecystectomy. Normal spleen. Normal pancreas. Normal bilateral adrenal glands. Normal right kidney. Normal left kidney. There is a hiatal hernia. Normal small intestine. Retained stool noted throughout the colon. There is non-visualization of the appendix. Normal abdominal aorta. Normal inferior vena cava. Normal retroperitoneum. Normal urinary bladder. Uterus is present, the endometrium cannot be accurately evaluated with CT. No suspicious cystic mass or free fluid Normal abdominal wall. There are diffuse degenerative changes of the visualized lumbar spine, and pelvis. A chronic compression fracture at T11 has been stabilized with vertebroplasty CT/Abdomen/Pelvis WITH Contrast IMPRESSION: No suspicious solid organ abnormality, simple hepatic cysts, no specific follow-up needed. Retrocardiac hiatal hernia with evidence to suspect GE reflux. Retained stool throughout the colon Uterus is present, the endometrium cannot be accurately evaluated with CT. No free intraperitoneal fluid, air, or suspicious adenopathy Degenerative bony changes with vertebroplasty at T11 Electronically Signed: Asif Palacios MD at 14:52 EST , Service support ,
== END ==
PROVIDERS: PCP Family Medicine; Referring Provider Family Medicine; Visit Provider Family Medicine
DX: R10.9 Unspecified abdominal pain (principal); R10.2 Pelvic and perineal pain; K44.9 Diaphragmatic hernia without obstruction or gangrene
CPT/HCPCS: 74177; Q9967

== ENCOUNTER 2021-06-05 14:18 | Outpatient (CLI) | payer MEDICARE, OTHER, SELFPAY | END 2021-06-05 23:59 | disposition short-term general hospital (02) | LOC: LABSPEC 14:21 | PROVIDERS: PCP Family Medicine; Visit Provider Family Medicine | DX: Z20.828 Contact with and (suspected) exposure to other viral communicable diseases (principal) | CPT/HCPCS: 87635; U0003; U0005 ==

== ENCOUNTER 2021-06-22 10:53 | Outpatient (CLI) | payer MEDICARE, OTHER, SELFPAY ==
[2021-06-22 12:11] LABS: Absolute Lymphocyte Count 1.25 X10^3/uL (0.83-4.51); Absolute Neutrophil Count 2.6 X10^3/uL (2.0-7.7); Basophil# 0.04 X10^3/uL; Basophil% 0.9 % (0-1); Eosinophil# 0.09 X10^3/uL; Eosinophils% 2.1 % (0-5); Hematocrit 45.2 % (37-47); Lymphocyte # 1.25 X10^3/ul (0.83-4.51); Lymphocyte % 28.7 % (19-41); Mean Corp Hgb Conc 33.2 g/dL (32-36); Mean Corpuscular Hgb 32.1 pg (27.0-32.0); Mean Corpuscular Volume 96.6 fL (81-99); Mean Platelet Vol. 10.2 fl (6.2-12.0); Monocyte% 9.2 % (0-10); NRBC Flagged by Analyzer 0 % (0-5); Neutrophil # 2.56 X10^3/uL (2.7-7.7); Neutrophil % 58.9 % (47-70); Platelet Count 245 K/mm3 (150-450); RBC Distribution Width CV 13.2 % (11.6-14.6); RBC Distribution Width SD 47.2 fl (35.1-43.9); Red Blood Count 4.68 M/mm3 (4.2-5.4); White Blood Count 4.4 K/mm3 (4.4-11.0)
[2021-06-22 12:17] LABS: Prothrombin Time (Protime)PT. 21.8 SECONDS (11.7-14.9)
[2021-06-22 12:46] LABS: ALB/GLOB Ratio 1.2 RATIO (0.9-2.4); AST(SGOT) 22 U/L (15-37); Alanine Aminotransfer ALT/SGPT 27 U/L (13-56); Albumin, Serum 3.7 g/dL (3.2-5.0); Alkaline Phosphatase 114 U/L (45-117); Anion Gap 6 (5-15); BUN 12 mg/dL (7-18); Calcium,Total 8.7 mg/dL (8.5-10.1); Chloride 109 mmol/L (98-107); Cholesterol 155 mg/dL (200); Creatinine, Serum 0.86 mg/dL (0.55-1.02); EST Glomerular Filtration Rate 70 mL/min (>60); Est Glom Filt Rate - Afr Amer 84 mL/min (>60); Free T3 2.7 pg/mL (2.18-3.98); Globulin 3.1 g/dL (2.2-4.2); Glucose 90 mg/dL (74-106); High Density Lipoprotein 72 mg/dL; Potassium 3.8 mmol/L (3.5-5.1); Protein, Total 6.8 g/dL (6.4-8.2); Sodium Level 141 mmol/L (136-145); T4 Free Direct 1.24 ng/dL (0.76-1.46); Triglycerides 96 mg/dL; Very Low Density Lipoprotein 19 mg/dL (5-40)
== END 2021-06-22 23:59 | disposition short-term general hospital (02) ==
LOC: LAB 10:58
PROVIDERS: PCP Family Medicine; Referring Provider Family Medicine; Visit Provider Family Medicine
DX: E03.9 Hypothyroidism, unspecified (principal); I82.401 Acute embolism and thrombosis of unspecified deep veins of right lower extremity; D68.2 Hereditary deficiency of other clotting factors; E78.5 Hyperlipidemia, unspecified; Z79.01 Long term (current) use of anticoagulants; Z51.81 Encounter for therapeutic drug level monitoring
CPT/HCPCS: 36415; 80053; 80061; 84439; 84443; 84481; 85025; 85610

== ENCOUNTER 2021-07-09 10:49 | Outpatient (CLI) | payer MEDICARE, OTHER, SELFPAY ==
--- NOTE | 2021-07-09 10:51 | BI_ITS ---
MAMMOGRAPHY - BILATERAL SCREENING REASON FOR EXAM: Female, 71 years old. Routine annual screening examination. PERTINENT HISTORY: Aunts with breast cancer. Remote right excisional breast biopsy. TECHNIQUE: Digital bilateral breast brayan (3D mammographic acquisition) in the CC and MLO projections. 2-D mediolateral oblique (MLO) and craniocaudad (CC) views of both breasts were obtained. CAD: Full Field Digital Mammography with Computer Added Detection was performed. COMPARISON: Comparison is made with prior study dated 07/06/2020 and 08/12/2019. FINDINGS: Breast Composition: There are scattered areas of fibroglandular density. There are no dominant masses or suspicious calcifications. Stable small benign-appearing left axillary lymph nodes. No other significant abnormalities are identified. There has been no significant change since the prior study. BI/SCRN MAMM (CAD)W/BRAYAN BILAT IMPRESSION: Stable bilateral screening mammogram. Yearly follow-up mammogram recommended. (A) ASSESSMENT CATEGORY: BIRADS Category 2: Benign. A letter regarding these results will be sent to the patient by the facility within 30 days. Approximately 10% of breast cancers are not detected by mammography. A normal mammogram should not delay biopsy of a clinically suspicious abnormality. [id number] Electronically Signed: Efrain Klein MD at 12:30 EST ,
== END 2021-07-09 23:59 | disposition home or self-care (01) ==
LOC: OPBI 10:50
PROVIDERS: PCP Family Medicine; Visit Provider Family Medicine
DX: Z12.31 Encounter for screening mammogram for malignant neoplasm of breast (principal); Z80.3 Family history of malignant neoplasm of breast
CPT/HCPCS: 77063; 77067

== ENCOUNTER 2021-08-02 06:50 | Day surgery (SDC) | payer MEDICARE, OTHER, SELFPAY ==
[2021-08-02 07:21] LABS: INR Fingerstick 1.1; Prothrombin Time Fingerstick 13.2 SEC (11.7-14.9)
[2021-08-02 07:25] VITALS: BP 149/79; PULSE 59; RESP 16; TEMP 36.5; O2SAT 99; BMI 27.6
[2021-08-02] MEDS: Lactated Ringers 1,000 ML 15 ML IV (07:33)
--- NOTE | 2021-08-02 08:13 | PCM.HP.BLA ---
History and Physical Date of Admission: 08/02/21 71 F who presents to the office today for evaluation of epigastric pain and inability to eat. She has a past medical history of factor V Leiden on anticoagulation. She also has a history of previous lumbar flexion status post kyphoplasty. She is on pain medication. She recently underwent a CT scan of the abdomen pelvis that showed a large hiatal hernia. She had a gastric emptying study that is normal gastric emptying. She says that this has been going on since April and prior to that time she did not have any problems with her digestion. She can eat or drink a small amount up until about 3:00. Patient needs after 3:00 she will get miserable. She also has episodes of intermittent esophageal dysphagia. She denies any chest pain or shortness of breath. She does have nausea. On her CT scan abdomen pelvis is also showed isolated constipation with dilation in the hepatic flexure. She does take MiraLAX on a daily basis due to her need for narcotics because of her chronic back pain. ROS Const Constitutional: No anorexia, fatigue, fever(s), weight change or sleep problems Eyes Eyes: No change in vision ENT ENT: No abnormal hearing, difficulty swallowing, mouth lesions, tongue swelling or throat swelling Resp Respiratory: No cough or shortness of breath Cardio Cardiology: No chest pain at rest, chest pain with exertion, shortness of breath or dyspnea on exertion Gastro GI: No difficulty swallowing Genitourinary-Female: No difficulty urinating or burning urination Musc Musculoskeletal: No joint pain, joint swelling, muscle weakness or decreased muscle mass Skin Skin: No hair loss in leg, yellowing of the eye, itchy eyes, rash, skin ulcer or skin swelling Neuro Neurology: No abnormal hearing, abnormal movements, confusion, unsteady gait/balance or memory loss Psych Psychiatric: No anxiety, No confusion and No memory loss Endo Endocrine: No fatigue or weight change Aller/Imm Allergy/Immunologic: No itchy eyes, throat swelling or tongue swelling Jamaal/Lymp Hematologic/Lymphatic: No easy bleeding, easy bruising or enlarged lymph nodes Exam Const General: cooperative and comfortable Nutritional Appearance: average body habitus and well nourished HENME Head: normal to inspection Ears: hearing grossly normal bilaterally Nose: external nose normal Face and sinus: normal facial exam Mouth: oral mucosae normal Throat: posterior oropharynx normal Eyes General: appearance normal, both eyes and all related structures Neck Neck: normal visual inspection Chest Chest palpation & inspection: normal inspection of the chest and normal palpation of entire chest wall Resp Effort & Inspection: normal respiratory effort Auscultation: Bilateral: Clear to Auscultation Cardio Palpation: normal PMI Rate: regular rate Rhythm: regular rhythm GI Inspection: normal to inspection Auscultation: normal bowel sounds Percussion: normal to percussion Palpation: no hepatosplenomegaly Skin General: no rashes or lesions noted Neuro General: patient alert Extrem General: normal to inspection Psych Affect: normal affect Quality Reporting Tobacco Screening ([facility] 138) Smoking Status: Never smoker Assessment and Plan Assessment and Plan (1) Large hiatal hernia: Status: Acute Orders: Orders: EGD with 48 pH probe Today Esophageal Manometry Today Plan: She will need to undergo an EGD with 48-hour pH probe and esophageal manometry. I suspect because of the size of her hiatal We may have to think about surgery as an option. (2) GERD (gastroesophageal reflux disease): Status: Acute Orders: Orders: EGD with 48 pH probe Today Esophageal Manometry Today Plan: Her gastroesophageal disease is worse and is causing. I will put her on a 50-50 combination of liquid Carafate and lidocaine to take every 6 hours. Hopefully this will improve some of her symptoms. (3) Abdominal pain: Status: Acute Plan: Think her pain is multifactorial from the large hiatal hernia, stool within the hepatic flexure and elements of narcotic bowel syndrome. I will see how she does oral medications. If she is not feeling better then I will add dicyclomine for narcotic bowel syndrome. I have re-examined the patient. There are no clinical changes since date of exam.
[2021-08-02] MEDS: Lidocaine Jelly 2% 20 ML Syringe (URO-JET) 1 APPLIC (08:19)
--- NOTE | 2021-08-02 09:15 | EGD_PTH ---
PATIENT: SHANE CHAMBERS LOC: [facility] U#:[id number] AGE/SX: 71/F ROOM: RE08/02/[address]: Dr. Hao Engle DO : 1950 BED: DIS: 08/02/2021 SPEC #: [id number] RECD: 08/02/21 13:44 STATUS: SANDY LILIANA #: [id number] MEHDI: 08/02/21 09:[address]: Hao Engle DEPT: SURGICAL PATHOLOGY RECD BY: Gina Hameed ENTERED: 08/03/21 09:33 SP TYPE: EGD BIOPSY OT DR: Dr. Adelina Alvarenga DO Tissues: Stomach, NOS Procedures: Special Stain Group II Surgery Specimen Level IV Alcian Blue/PAS (control) HEADER OPERATION: EGD ([facility]), PH probe PRE-OP DIAGNOSIS: Large hiatal hernia, GERD, abdominal pain TISSUE SUBMITTED: GE junction biopsy MICROSCOPIC DIAGNOSIS Gastroesophageal junction, biopsy: Mild chronic inflammation. No evidence of intestinal metaplasia. See comment. AM:rob 08/06/2021 COMMENT Alcian blue/PAS stain with matched control supports the above diagnosis. MICROSCOPIC DESCRIPTION Slides are reviewed. GROSS DESCRIPTION Received in fixative is one container labeled with the patient's name and designated GE junction biopsy. The specimen consists of two irregular fragments of light price soft tissue that in aggregate measure 0.6 x 0.3 x 0.1 cm. The specimen is totally submitted in one cassette. / SJ:rob 08/03/2021 TC:3 CPT: 51256, 93934
[2021-08-02 10:10] VITALS: BP 149/79; BP 86/57; PULSE 70; RESP 16; TEMP 36.2; O2SAT 94
--- NOTE | 2021-08-02 10:18 | OP.CCLET_ITS ---
02/27/2022 Adelina Alvarenga [address] [facility] [place] [address] Re : Upper GI endoscopy procedure for Anusha Raymundomirtha Dear Dr. Alvarenga This procedure was performed on July. My impressions and recommendations are as follows: Impressions : - Tortuous esophagus. - LA Grade A reflux esophagitis. Biopsied. - Large hiatal hernia. - Multiple gastric polyps. - Normal second portion of the duodenum. - The MYERS pH capsule was positioned 23 cm from the incisors, which was 6 cm proximal to the GE junction. Recommendations : - Discharge patient to home. - Resume previous diet. - Continue present medications. - Await pathology results. - Return to my office. My findings are described in the full procedure note, which is enclosed. If I can be of further assistance, please feel free to contact me at . Sincerely, Hao Engle, 08/02/2021 10:17:25 AM This report has been signed electronically.
--- NOTE | 2021-08-02 10:18 | OP.EGD_ITS ---
Patient Name: Anusha Vidal Procedure Date: 08/02/2021 9:41 AM Date of : 1950 Age: 71 Procedure: Upper GI endoscopy Indications: Dysphagia, Heartburn Providers: Hao Engle DO Medicines: See the Anesthesia note for documentation of the administered medications Patient Profile: This is a 71 year old female. Refer to note in patient chart for documentation of history and physical. Patient has symptoms of chronic dysphagia. Complications: No immediate complications. Procedure: Pre-Anesthesia Assessment: - Prior to the procedure, a History and Physical was performed, and patient medications and allergies were reviewed. The patient is competent. The risks and benefits of the procedure and the sedation options and risks were discussed with the patient. All questions were answered and informed consent was obtained. Patient identification and proposed procedure were verified by the physician in the pre-procedure area. Mental Status Examination: alert and oriented. Airway Examination: normal oropharyngeal airway and neck mobility. Respiratory Examination: clear to auscultation. CV Examination: normal. Prophylactic Antibiotics: The patient does not require prophylactic antibiotics. Prior Anticoagulants: The patient has taken no previous anticoagulant or antiplatelet agents. After reviewing the risks and benefits, the patient was deemed in satisfactory condition to undergo the procedure. The anesthesia plan was to use moderate sedation / analgesia (conscious sedation). Immediately prior to administration of medications, the patient was re-assessed for adequacy to receive sedatives. The heart rate, respiratory rate, oxygen saturations, blood pressure, adequacy of pulmonary ventilation, and response to care were monitored throughout the procedure. The physical status of the patient was re-assessed after the procedure. After obtaining informed consent, the endoscope was passed under direct vision. Throughout the procedure, the patient's blood pressure, pulse, and oxygen saturations were monitored continuously. The Endoscope was introduced through the mouth, and advanced to the second part of duodenum. The upper GI endoscopy was accomplished without difficulty. The patient tolerated the procedure well. Moderate Sedation: Moderate (conscious) sedation was administered by the endoscopy nurse and supervised by the endoscopist. The patient's oxygen saturation, heart rate, blood pressure and response to care were monitored. Total physician intraservice time was 15 minutes. Scope In: 9:53:32 AM Scope Out: 10:04:33 AM Total Procedure Duration Time 0 hours 11 minutes 1 second Findings: The upper third of the esophagus and middle third of the esophagus were moderately tortuous. LA Grade A (one or more mucosal breaks less than 5 mm, not extending between tops of 2 mucosal folds) esophagitis with no bleeding was found 34 to 35 cm from the incisors. Biopsies were taken with a cold forceps for histology. Verification of patient identification for the specimen was done. Estimated blood loss was minimal. The MYERS capsule with delivery system was introduced through the mouth and advanced into the esophagus, such that the MYERS pH capsule was positioned 23 cm from the incisors, which was 6 cm proximal to the GE junction. Suction was applied to the well of the MYERS pH capsule to suck in the adjacent mucosa of the esophagus using the external vacuum pump set at a minimum vacuum pressure of 550 mmHg for 30 seconds. The MYERS pH capsule was then deployed by depressing the plunger on top of the handle to advance the locking pin into the mucosa, thereby attaching the capsule to the esophagus. The plunger was then rotated a quarter turn clockwise to release the capsule from the delivery system. The delivery system was then withdrawn. Endoscopy was utilized for probe placement and diagnostic evaluation. The scope was reinserted to evaluate placement of the MYERS capsule. Visualization showed the MYERS capsule to be in an appropriate position. A large hiatal hernia was present. Multiple 5 mm sessile polyps with no stigmata of recent bleeding were found in the stomach. The second portion of the duodenum was normal. Impression: - Tortuous esophagus. - LA Grade A reflux esophagitis. Biopsied. - Large hiatal hernia. - Multiple gastric polyps. - Normal second portion of the duodenum. - The MYERS pH capsule was positioned 23 cm from the incisors, which was 6 cm proximal to the GE junction. Recommendation: - Discharge patient to home. - Resume previous diet. - Continue present medications. - Await pathology results. - Return to my office. Procedure Code(s): --- Professional --- 75088, Esophagogastroduodenoscopy, flexible, transoral; with biopsy, single or multiple 10303, 59, Moderate sedation services provided by the same physician or other qualified health home care coordinator performing the diagnostic or therapeutic service that the sedation supports, requiring the presence of an independent trained observer to assist in the monitoring of the patient's level of consciousness and physiological status; initial 15 minutes of intraservice time, patient age 5 years or older CPT copyright 2017 [employer]. All rights reserved. The codes documented in this report are preliminary and upon certified professional coder review may be revised to meet current compliance requirements. Hao Engle DO 08/02/2021 10:17:25 AM This report has been signed electronically. Number of Addenda: 1 Note Initiated On: 08/02/2021 9:41 AM Addendum Number: 1 Addendum Date: 02/27/2022 6:38:29 AM MAC was used as sedation for this procedure. Hao Engle DO 02/27/2022 6:38:33 AM This report has been signed electronically.
== END 2021-08-02 23:59 | disposition home or self-care (01) ==
LOC: EN 06:51 → AC 06:52
PROVIDERS: PCP Family Medicine; Referring Provider Family Medicine; Visit Provider Internal Medicine Gastroenterology
PROC: F00ZJWZ Instrumental Swallowing and Oral Function Assessment using Swallowing Equipment (ICD-10-PCS; CPT 43235; principal; 2021-08-02 07:55)
PROC: 0DJ08ZZ Inspection of Upper Intestinal Tract, Via Natural or Artificial Opening Endoscopic (ICD-10-PCS; CPT 43235; principal; 2021-08-02 09:10)
DX: K44.9 Diaphragmatic hernia without obstruction or gangrene (principal); D68.51 Activated protein C resistance; R13.10 Dysphagia, unspecified; K31.7 Polyp of stomach and duodenum; K21.00 Gastro-esophageal reflux disease with esophagitis, without bleeding
CPT/HCPCS: 43239; 36416; 85610; 87426; 88305; 88313; C9803; J7120; J2405

== ENCOUNTER 2021-08-14 12:21 | Outpatient (CLI) | payer MEDICARE, OTHER, SELFPAY ==
--- NOTE | 2021-08-14 12:26 | BD_ITS ---
STUDY: DUAL ENERGY X-RAY ABSORPTIOMETRY / DXA REASON FOR EXAM: Female, 71 years old. M810. The patient is postmenopausal. TECHNIQUE: Bone Mineral Density (BMD) measurements of lumbar spine and bilateral hips were obtained. COMPARISON: Comparison is made with prior study dated 08/12/2019. FINDINGS: Lumbar Spine (L1-L4): g/cm2 (0.841) / T-score (-1.8) / Z-score (0.3) Findings are suggestive of osteopenia with a moderate fracture risk. Left Femur Total: g/cm2 (0.753) / T-score (-1.5) / Z-score (0.0) Left Femoral Neck: g/cm2 (0.549) / T-score (-2.7) / Z-score (-0.9) Right Femur Total: g/cm2 (0.731) / T-score (-1.7) / Z-score (-0.2) Right Femoral Neck: g/cm2 (0.574) / T-score (-2.5) / Z-score (-0.7) The T-Scores on the most recent prior examination were: Lumbar Spine (L1-L4): There has been improvement of bone density since the previous examination. Left Femur Total: which represents a worsening of 6.3%. Right Femur Total: which represents a worsening of 11.4%. BD/Dexa Bone Density Study IMPRESSION: The patient is considered osteoporotic as outlined below according to World Gian Organization (WHO) criteria with a high fracture risk. There has been worsening of bone density since the previous examination. Reference Information: The T-score is the number of standard deviations above or below the standard which is normal for young adults at their peak bone mineral density. The World Health Organization (WHO) interprets the T-scores as follows: Above -1 Normal bone density Between -1 and -2.5 Osteopenia Equal to / or below -2.5 Osteoporosis As a practical clinical guideline, osteopenia may be graded as follows: Mild -1 through -1.5 Moderate -1.6 through -2.0 Severe -2.1 through -2.4 The Z-score is the number of standard deviations above or below age-matched controls. A Z-score of less than -1.5 would be considered abnormal. References: 1. NIH Osteoporosis and Related Bone Diseases www osteo.org 2. International Society for Clinical Densitometry www iscd.org 3. National Osteoporosis Foundation www nof.org Electronically Signed: Efrain Klein MD at 9:01 EDT ,
== END 2021-08-14 23:59 | disposition home or self-care (01) ==
LOC: OPBD 12:21
PROVIDERS: PCP Family Medicine; Referring Provider Family Medicine; Visit Provider Family Medicine
DX: M81.0 Age-related osteoporosis without current pathological fracture (principal)
CPT/HCPCS: 77080

== ENCOUNTER 2021-08-21 10:21 | Outpatient (RCR) | payer MEDICARE, OTHER, SELFPAY ==
[2021-01-30 19:35] VITALS: BMI 27.9
[2021-08-21 10:55] LABS: International Normalized Ratio 2.3; Prothrombin Time (Protime)PT. 24.9 SECONDS (11.7-14.9)
== END 2021-08-30 18:00 | disposition home or self-care (01) ==
LOC: LAB 10:21
PROVIDERS: PCP Family Medicine; Referring Provider Family Medicine; Visit Provider Family Medicine
DX: D68.2 Hereditary deficiency of other clotting factors; Z79.01 Long term (current) use of anticoagulants
CPT/HCPCS: 36415; 85610

== ENCOUNTER 2021-09-04 10:10 | Observation (INO) | payer MEDICARE, OTHER, SELFPAY ==
--- NOTE | 2021-09-03 07:27 | EKG12_ITS ---
Test Reason : PREOP Blood Pressure : / mmHG Vent. Rate : 052 BPM Atrial Rate : 052 BPM P-R Int : 136 ms QRS Dur : 080 ms QT Int : 440 ms P-R-T Axes : 045 002 021 degrees QTc Int : 409 ms Sinus bradycardia Otherwise normal ECG Confirmed by CAMILLA ROSARIO, JIMMY ([id number]), state editor MANSI VEGA ([id number]) on 09/04/2021 11:55:27 AM Referred By: Felipe Pimentel Confirmed By:JIMMY SAMPSON MD
[2021-09-04] VITALS (13 sets, daily range): BP systolic 104–154; BP diastolic 54–85; PULSE 54–87; RESP 16–18; TEMP 36.3–36.8; O2SAT 93–100; BMI 28.0
[2021-09-04 06:21] LABS: Prothrombin Time Fingerstick 12.5 SEC (11.7-14.9)
--- NOTE | 2021-09-04 06:41 | PCM.HP.BLA ---
History and Physical Date of Admission: 09/04/21 Intake Vital Signs 08/21/21 09:39 Height 4 ft 11 in Weight: 136 lb BMI 27.4 BP 150/83 H Blood Pressure Location Rt brachial Position Sitting Respiration 16 Intake Visit Reasons: Possible Fundoplication Chief Complaint: generally unwell Allergies Iodinated Contrast Media [Iodinated Contrast Media - IV Dye] Allergy (Verified 08/21/21 09:36) Hives levofloxacin Adverse Reaction (Verified 08/21/21 09:36) abdominal pain naproxen [From Naprosyn] Adverse Reaction (Verified 08/21/21 09:36) Nausea Medications levothyroxine 75 mcg PO SUMOWEFRSA 05/04/20 [History Confirmed 08/21/21] multivitamin 1 ea PO DAILY 05/04/20 [History Confirmed 08/21/21] warfarin 3 mg PO MOWEFRSA 05/04/20 [History Confirmed 08/21/21] cholecalciferol (vitamin D3) 50 mcg (2,000 unit) tablet 50 mcg PO DAILY 10/27/20 [History Confirmed 08/21/21] tizanidine 4 mg tablet 4 mg PO QHS tab 10/27/20 [History Confirmed 08/21/21] atenolol 25 mg tablet 25 mg PO .COMPLEX #135 tab 11/01/20 [Rx Confirmed 08/21/21] simvastatin 40 mg tablet 40 mg PO QHS #90 tab 03/06/21 [Rx Confirmed 08/21/21] acetaminophen 1,000 mg PO Q6H PRN 07/31/21 [History Confirmed 08/21/21] levothyroxine 50 mcg PO TUTH 07/31/21 [History Confirmed 08/21/21] warfarin 2 mg PO TUTHSA 07/31/21 [History Confirmed 08/21/21] pantoprazole 40 mg tablet,delayed release 40 mg PO DAILY #30 tab 08/16/21 [Rx Confirmed 08/21/21] polyethylene glycol 3350 17 gram/dose oral powder 17 g PO DAILY 08/21/21 [History Confirmed 08/21/21] PFSH Medical History Abdominal pain Arthritis Atherosclerotic heart disease of [place] coronary artery without angina pectoris Atypical chest pain Back pain Bicuspid aortic valve Blood disorder Cancer Cardiology follow-up encounter Chest pain Chronic back pain DVT (deep venous thrombosis) Dyspnea on exertion Essential (primary) hypertension Factor V deficiency Gastric reflux GERD (gastroesophageal reflux disease) High cholesterol History of deep vein thrombophlebitis of lower extremity History of echocardiogram History of IBS History of irregular heartbeat History of steroid therapy History of stress test History of thyroid cancer History of TIA (transient ischemic attack) HTN (hypertension) Hypothyroidism (acquired) Injury of back Normal stress echocardiogram Palpitations Pure hypercholesterolemia Shortness of breath on exertion Stroke Thyroid disease TIA (transient ischemic attack) Vertigo Wears glasses Surgical History History of bilateral cataract extraction History of cardiac catheterization History of carpal tunnel release of both wrists History of cholecystectomy History of left heart catheterization (~11/2007) History of thyroidectomy Hx of thumb surgery Family History Father , age 65 CAD (coronary artery disease) Arthritis Myocardial infarction CVA (cerebral vascular accident) Mother Arthritis Hypertension Sister Arthritis Aunt Breast cancer Social History Smoking Status: Never smoker alcohol intake: never substance use type: does not use caffeine: Yes Type: carbonated beverages what type of physical activity do you participate in: none seatbelt use: always do you feel safe at home: Yes HPI HPI HPI: SHANE CHAMBERS, is a 71 F who presents to the office today for GERD. Patient has been on 2 different PPIs and has severe reflux. She had a CT which showed a large hiatal hernia as well as endoscopy which confirmed the hiatal hernia. She had a full work-up for reflux by the GI doctor. Patient reports she does have severe reflux especially at night and cannot eat after 3 PM due to this reflux. ROS General General: Yes fatigue; No weight change, appetite, colon cancer, breast cancer or weakness HEENT HEENT: Yes difficulty swallowing and eye surgery; No eye injury, swollen glands or hoarseness Endo Endocrine: Yes thyroid disease and thyroid cancer; No diabetes mellitus, Hair loss, heat intolerance or cold intolerance Skin Skin: No rash or changing moles Breast Breast: No left breast lump, right breast lump, nipple discharge, breast pain, abnormal mammogram, abnormal US or breast enlargement Musc Musculoskeletal: No back problems, arthritis, rheumatoid arthritis, gout or joint pain Cardio Cardiovascular: No murmur, pacemaker, heart disease, atrial fibrillation, high blood pressure, heart attack, heart stent, palpitations, shortness of breat with exertion or chest pain Psych Psychiatric: No depression, anxiety or hearing voices Resp Respiratory: Yes shortness of breath, No sleep apnea, Yes cough, No COPD, No asthma, No emphysema and No wheezing Gastro Gastrointestinal: Yes abdominal pain, No nausea or vomiting, Yes diarrhea, Yes constipation, No blood in stool, Yes acid reflux, No hemorrhoids, No ulcers, Yes gallbladder problem and No black,tarry stools Jamaal Hematologic: Yes blood thinners, Yes blood disorders, No bleeding, No anemia and Yes blood clots Neuro Neurologic: No system reviewed and no additional complaints, except as documented, No as per HPI, No abnormal gait, No abnormal hearing, No abnormal movements, No abnormal speech, No behavioral changes, No burning sensations, No confusion, No convulsions, No disequilibrium, No dizziness, No localized weakness, No frequent falls, No headache(s), No lack of coordination, No loss of vision, No memory loss, No numbness, No other visual disturbances, No radicular pain, No restless legs, No sensory deficit, No syncope, No tingling, No tremor(s), No weakness and No other Exam Const General: cooperative Orientation: alert and oriented x3 HENIN Head: normal to inspection Neck Neck: normal visual inspection and full ROM Chest Chest palpation & inspection: normal inspection of the chest Resp Effort & Inspection: normal respiratory effort Auscultation: clear to auscultation bilaterally Cardio Rate: regular rate Rhythm: regular rhythm GI Inspection: non-distended Palpation: soft and nontender Skin General: no rashes or lesions noted Neuro General: patient alert and patient oriented x3 Extrem General: full ROM Psych Appearance: grossly normal Mental Status: mental status grossly normal Assessment and Plan Assessment and Plan (1) Large hiatal hernia: Status: Acute (2) GERD (gastroesophageal reflux disease): Status: Acute Qualifiers: Esophagitis presence: with esophagitis Esophagitis bleeding: without hemorrhage Qualified Code(s): K21.00 - Gastro-esophageal reflux disease with esophagitis, without bleeding Plan - Dr. Felipe Pimentel MD: The patient had work-up for GERD including EGD with pH probe as well as esophageal manometry. I reviewed the manometry report and the patient does have a weak swallow with normal LES function. It does appear that she does have a pinch below the GE junction significant for hiatal hernia. She does have a hiatal hernia on EGD. I discussed toupee fundoplication with hiatal hernia repair with her in detail. I discussed the procedure as well as the postop care. I discussed the risks including but not limited to bleeding, infection, injury to other organ such as the esophagus liver or blood vessels. Patient will hold her Coumadin for 5 days prior to surgery. 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 Felipe Pimentel MD Pager: [facility] [address] [place] [address], [address] [place] [address] Office: I have re-examined the patient. There are no clinical changes since date of exam.
[2021-09-04] MEDS: Lactated Ringers 1,000 ML 15 ML IV ×2 (06:46→09:01)
[2021-09-04] MEDS: Cefotetan 2 GM in 0.9% NS 100 ML IV (07:26)
[2021-09-04] MEDS: Bupivacaine Mpf 0.5% 30 ML VIAL (09:46)
--- NOTE | 2021-09-04 10:15 | PCM.OPRPT ---
Problems Associated Problem List Diagnoses (1) GERD (gastroesophageal reflux disease): (2) Large hiatal hernia: Report of Operation Date of Procedure: 09/04/21 Pre-Operative Diagnosis: Hiatal hernia and GERD Post-Operative Diagnosis: Same Surgery/Procedure Performed:: Appendectomy hiatal hernia repair with toupet fundoplication Description of Procedure: Patient was brought back to the operating room and general anesthesia was induced. The abdomen was prepped draped in usual sterile fashion. A midline incision was made inferior to the umbilicus and the fascia was elevated and incised. Port was placed into the abdomen and the abdomen was insufflated 15 mmHg. Patient was then placed in Trendelenburg position. An epigastric incision was placed in a Ananda liver retractor was placed through this incision and the left lobe of the liver was elevated. Next under direct visualization a right upper quadrant port was placed as well as a left upper quadrant port and left lateral port. Next the fat was retracted downward and the greater curvature was taken down with harmonic. There was a small laceration to the spleen from traction. Surgicel was placed. The bleeding did stop spontaneously. The left crura was dissected free and then medially the right crura was dissected free using harmonic. The hiatal hernia was reduced and the posterior space posterior to the esophagus was dissected until the opening was complete. The posterior and anterior vagus were identified. The hiatal hernia was reduced and the adhesions to the esophagus were taken down. [place] was placed around the esophagus and traction was used to pull the esophagus down into the abdomen. More adhesions were taken down until the esophagus was lax and able to stay into the abdomen. Next the bougie was placed into the esophagus under direct visualization and the crura was closed with interrupted 0 Ethibond sutures. Next the stomach was passed underneath the esophagus and wrapped around posteriorly. It was then sutured with interrupted sutures to the esophagus and crux. This appeared to give bulk to the GE junction without tightening the lumen. The bougie was then removed and an EGD was performed. The EGD showed minimal bleeding with good patency to the lumen. There was no leak apparent from the abdomen. The abdomen was suctioned and then irrigated and suctioned again. The spleen was reinspected and the Surgicel was changed. There appeared to be good hemostasis. The Ananda retractor was removed. Next the abdomen was desufflated and the ports were removed. The midline fascia was closed with 0 Vicryl suture. The skin was injected with local anesthetic and closed with interrupted 4-0 Monocryl sutures as well as Steri-Strips and bandages. Patient was awoken and taken to PACU in stable condition. Admit VTE Documentation VTE Mechan Device Prophylaxis: SCD's
[2021-09-04] MEDS: 0.9% Normal Saline 1,000 ML 100 ML IV ×2 (12:35→22:10)
[2021-09-04] MEDS: Morphine 2 MG/ML Syringe IV ×3 (12:56→20:24)
[2021-09-04] MEDS: Atenolol 25 MG Tablet PO (20:24)
[2021-09-05] VITALS (7 sets, daily range): BP systolic 87–125; BP diastolic 51–72; PULSE 55–91; RESP 16–18; TEMP 36.6–37.2; O2SAT 93–99
[2021-09-05] MEDS: Levothyroxine 75 MCG Tablet PO (05:26)
[2021-09-05] MEDS: Morphine 2 MG/ML Syringe IV ×2 (05:26→09:25)
[2021-09-05 06:48] LABS: Absolute Neutrophil Count 5.9 X10^3/uL (2.0-7.7); Basophil# 0.02 X10^3/uL; Basophil% 0.3 % (0-1); Eosinophil# 0.01 X10^3/uL; Eosinophils% 0.1 % (0-5); Hematocrit 38.9 % (37-47); Hemoglobin 12.7 g/dL (12.0-15.0); Lymphocyte % 14.4 % (19-41); Mean Corp Hgb Conc 32.6 g/dL (32-36); Mean Corpuscular Hgb 31.7 pg (27.0-32.0); Mean Platelet Vol. 10.6 fl (6.2-12.0); Monocyte# 0.58 X10^3/uL; Monocyte% 7.6 % (0-10); NRBC Flagged by Analyzer 0 % (0-5); Neutrophil % 77.2 % (47-70); Platelet Count 198 K/mm3 (150-450); RBC Distribution Width CV 13.2 % (11.6-14.6); RBC Distribution Width SD 47.2 fl (35.1-43.9); Red Blood Count 4.01 M/mm3 (4.2-5.4); White Blood Count 7.6 K/mm3 (4.4-11.0)
[2021-09-05 07:11] LABS: Anion Gap 3 (5-15); BUN 10 mg/dL (7-18); BUN/Creat Ratio 12.7 RATIO (10-20); Calcium,Total 8.2 mg/dL (8.5-10.1); Chloride 113 mmol/L (98-107); Creatinine, Serum 0.79 mg/dL (0.55-1.02); EST Glomerular Filtration Rate 77 mL/min (>60); Est Glom Filt Rate - Afr Amer 93 mL/min (>60); Glucose 91 mg/dL (74-106); Potassium 3.9 mmol/L (3.5-5.1); Sodium Level 141 mmol/L (136-145)
--- NOTE | 2021-09-05 08:13 | PCM.PN.SRG ---
Subjective Subjective Patient reports doing well overnight Objective Data Objective Data Vital Signs: Vital Signs Temp Pulse Resp BP Pulse Ox 99.0 F 66 18 114/64 99 09/05/21 05:12 09/05/21 05:12 09/05/21 05:12 09/05/21 05:12 09/05/21 05:12 Oxygen Flow Rate (L/min) 2 Oxygen Delivery Method Room Air Weight: 138 lb 15.988 oz Body Mass Index (BMI) 28.0 Intake & Output: Intake and Output for Last 24 Hours 09/03/21 09/04/21 09/05/21 23:59 23:59 23:59 Intake Total 2258.08 / 2258.08 50 / 50 Output Total 400 / 400 Balance 2258.08 / 2258.08 -350 / -350 Lab / Micro Data Result Diagrams: 09/05/21 06:09 09/05/21 06:09 Labs: Laboratory Results - last 24 hr 09/05/21 06:09: WBC 7.6, RBC 4.01 L, Hgb 12.7, Hct 38.9, MCV 97.0, MCH 31.7, MCHC 32.6, RDW Std Deviation 47.2 H, RDW Coeff of Collin 13.2, Plt Count 198, MPV 10.6, Immature Gran % (Auto) 0.400, Neut % (Auto) 77.2 H, Lymph % (Auto) 14.4 L, [place] % (Auto) 7.6, Eos % (Auto) 0.1, Baso % (Auto) 0.3, Absolute Neuts (auto) 5.9, Absolute Lymphs (auto) 1.10, Nucleated RBC % 0 09/05/21 06:09: Sodium 141, Potassium 3.9, Chloride 113 H, Carbon Dioxide 25.0, Anion Gap 3 L, BUN 10, Creatinine 0.79, Estim Creat Clear Calc 52.10, Est GFR (MDRD) Af Amer 93, Est GFR (MDRD) Non-Af 77, BUN/Creatinine Ratio 12.7, Glucose 91, Calcium 8.2 L Micro: Microbiology 09/03/21 07:35 Interface Orders SARS-CoV-2 Antigen (Rapid) - Final Physical Exam Const no apparent distress Resp normal respiratory effort Cardio regular rate and regular rhythm GI soft to palpation and non-tender Assessment & Plan Assessment/Plan (1) GERD (gastroesophageal reflux disease): QUALIFIERS: Esophagitis presence: with esophagitis Esophagitis bleeding: without hemorrhage Qualified Code(s): K21.00 - Gastro-esophageal reflux disease with esophagitis, without bleeding (2) Large hiatal hernia: PLAN: The patient is doing well. I will start her on a full liquid diet and oral pain medication. If she tolerates this and is doing well this afternoon I will discharge her home. Felipe Pimentel MD Pager: [facility] [address] [place] [address] [address] [place] [address] Office:
[2021-09-05] MEDS: 0.9% Normal Saline 1,000 ML 100 ML IV (09:07)
[2021-09-05] MEDS: Atenolol 25 MG Tablet 12.5 MG PO (09:07)
--- NOTE | 2021-09-05 10:25 | NURSING ---
Pt. ambulatory around unit. Pt. tolerated activity well and was able to hold a conversation while walking.
[2021-09-05] MEDS: HYDROCODONE/APAP 7.5-325/15ML 15 ML UDC PO ×2 (11:47→17:23)
--- NOTE | 2021-09-05 12:02 | NURSING ---
DR GALEAS WAS ASKING ABOUT PT. THIS NURSE SPOKE TO NURSE HUMPHRIES AND REVIEWED MAR FOR HIM.
--- NOTE | 2021-09-05 14:20 | CASEMGMT ---
LISA WILSON NOTE: Intro role of CM to patient and MALIN form explained re: Observation status for treatment of hiatel hernia. Explained hospitalization will be paid per her insurance policy for Outpatient billing and condition will continue to be evaluated for Inpt necessity. Also let pt know that [facility] sends paper in the billing packet with their phone number if questions arise. Discussed Pharmacy section of MALIN form and self administered medication guideline. Pt verbalizes understanding and does not have further questions. Form signed, copy made and placed in chart, and original given to pt. Brittany GARAY RN CM
--- NOTE | 2021-09-05 17:19 | PCM.DC.SUM ---
Providers Date of Admission: 09/04/21 Primary Care Physician: Dr. Adelina Alvarenga DO Reason For Visit: LAP HIATAL HERNIA REP WITH TOUPET PROCEDURE Diagnosis Discharge Diagnosis (1) GERD (gastroesophageal reflux disease): Status: Acute Code(s): K21.9 - Gastro-esophageal reflux disease without esophagitis Qualifiers: Esophagitis presence: with esophagitis Esophagitis bleeding: without hemorrhage Qualified Code(s): K21.00 - Gastro-esophageal reflux disease with esophagitis, without bleeding (2) Large hiatal hernia: Status: Acute Code(s): K44.9 - Diaphragmatic hernia without obstruction or gangrene Medications at Discharge Home Medications levothyroxine 75 mcg PO SUMOWEFRSA 05/04/20 warfarin 3 mg PO MOWEFRSA 05/04/20 cholecalciferol (vitamin D3) 50 mcg (2,000 unit) tablet 50 mcg PO DAILY 10/27/20 tizanidine 4 mg tablet 4 mg PO QHS tab 10/27/20 atenolol 25 mg tablet 25 mg PO .COMPLEX #135 tab 11/01/20 simvastatin 40 mg tablet 40 mg PO QHS #90 tab 03/06/21 acetaminophen 1,000 mg PO Q6H PRN 07/31/21 levothyroxine 50 mcg PO TUTH 07/31/21 warfarin 2 mg PO SUTUTH 07/31/21 pantoprazole 40 mg tablet,delayed release 40 mg PO DAILY #30 tab 08/16/21 polyethylene glycol 3350 17 gram/dose oral powder 17 g PO PRN PRN 08/21/21 Multivitamin Gummies 2 tab PO DAILY 08/28/21 hydrocodone-acetaminophen 10 - 15 ml PO Q4H PRN PRN 5 Days #473 ml 09/05/21 Hospital Course Summary of Care Provided Hospital Course: Patient had elective laparoscopic hiatal hernia repair. She was admitted after surgery and the following morning she was started on a liquid diet. Once she tolerated diet and pain was well controlled on PO meds, she was discharged home. Weight / BMI Weight Weight: 138 lb 15.988 oz Body Mass Index (BMI) 28.0 ABG / Lab / Microbiology Data Result Diagrams: 09/05/21 06:09 09/05/21 06:09 Laboratory: Laboratory Results - last 24 hr 09/05/21 06:09: WBC 7.6, RBC 4.01 L, Hgb 12.7, Hct 38.9, MCV 97.0, MCH 31.7, MCHC 32.6, RDW Std Deviation 47.2 H, RDW Coeff of Collin 13.2, Plt Count 198, MPV 10.6, Immature Gran % (Auto) 0.400, Neut % (Auto) 77.2 H, Lymph % (Auto) 14.4 L, [place] % (Auto) 7.6, Eos % (Auto) 0.1, Baso % (Auto) 0.3, Absolute Neuts (auto) 5.9, Absolute Lymphs (auto) 1.10, Nucleated RBC % 0 09/05/21 06:09: Sodium 141, Potassium 3.9, Chloride 113 H, Carbon Dioxide 25.0, Anion Gap 3 L, BUN 10, Creatinine 0.79, Estim Creat Clear Calc 52.10, Est GFR (MDRD) Af Amer 93, Est GFR (MDRD) Non-Af 77, BUN/Creatinine Ratio 12.7, Glucose 91, Calcium 8.2 L Microbiology: Microbiology 09/03/21 07:35 Interface Orders SARS-CoV-2 Antigen (Rapid) - Final D/C Instructions Discharge Diet: - (Full Liquid diet) Discharge Activity: May Not Drive (While on narcotics) and May Shower Lifting Restrictions: 10 lbs for 4 weeks Call your doctor if your incision/area has: Continuous Slow Oozing, Sudden Increased Bleeding, Increased Pain/ Swelling, Increased Redness, Foul Smelling Discharge and Swelling at the incision site Call your doctor if you observe: Fever of 101 or Higher Change Dressing in: 2 days Cleanse incision/area with: Soap & Water Additional Dressing/Incision Instructions: Resume Coumadin Please Follow Up With: Felipe Pimentel MD When: Call to schedule 1 week follow up appt [phone] Meaningful Use Info Meaningful Use Diagnoses (Choose all that apply): None applicable Discharge Plan Admission Admit Date/Time: 09/04/21 10:10 Attending Provider: Felipe Pimentel Primary Care Provider: Adelina Alvarenga Consulting Providers: Jus Heck Discharge Orders/Prescriptions Prescriptions: New hydrocodone-acetaminophen 7.5-325 mg/15 mL Solution 10 - 15 ml PO Q4H PRN PRN (Reason: Pain Score 6-10) 5 Days Qty: 473 RF: 0 Continued cholecalciferol (vitamin D3) 50 mcg (2,000 unit) tablet 50 mcg PO DAILY RF: 0 pantoprazole [Protonix] 40 mg tablet,delayed release (DR/EC) 40 mg PO DAILY Qty: 30 RF: 5 polyethylene glycol 3350 [Miralax] 17 gram/dose powder 17 g PO PRN PRN (Reason: Constipation) RF: 0 tizanidine 4 mg tablet 4 mg PO QHS RF: 0 warfarin 3 MG tablet 3 mg PO MOWEFRSA RF: 0 levothyroxine 75 MCG tablet 75 mcg PO SUMOWEFRSA RF: 0 acetaminophen 500 mg Tablet 1,000 mg PO Q6H PRN (Reason: Pain) RF: 0 levothyroxine 50 mcg tablet 50 mcg PO TUTH RF: 0 warfarin 2 mg tablet 2 mg PO SUTUTH RF: 0 Multivitamin Gummies 200 mcg Tablet,Chewable 2 tab PO DAILY RF: 0 atenolol 25 mg tablet 25 mg PO .COMPLEX Qty: 135 RF: 3 simvastatin 40 mg tablet 40 mg PO QHS Qty: 90 RF: 3 Referrals / Follow Up: Adelina Alvarenga DO [Primary Care Provider] - Disposition Disposition (needs filled in before D/C Order can be placed): Home, Self Care
== END 2021-09-05 17:53 | disposition home or self-care (01) ==
LOC: MS3 18:06 → SDC 09-05 08:26 → MS3 09-05 08:26
PROVIDERS: Admitting Provider Surgery; PCP Family Medicine; Referring Provider Surgery; Visit Provider Surgery
PROC: (CPT 43325; principal; 2021-09-04 07:10)
DX: K44.9 Diaphragmatic hernia without obstruction or gangrene (principal); D68.2 Hereditary deficiency of other clotting factors; G89.29 Other chronic pain; E03.9 Hypothyroidism, unspecified; E78.00 Pure hypercholesterolemia, unspecified; I10 Essential (primary) hypertension; K21.00 Gastro-esophageal reflux disease with esophagitis, without bleeding; I25.10 Atherosclerotic heart disease of native coronary artery without angina pectoris; Z79.899 Other long term (current) drug therapy; Z79.01 Long term (current) use of anticoagulants; Z79.890 Hormone replacement therapy; M19.90 Unspecified osteoarthritis, unspecified site; Z86.718 Personal history of other venous thrombosis and embolism; K91.71 Accidental puncture and laceration of a digestive system organ or structure during a digestive system procedure; Y92.234 Operating room of hospital as the place of occurrence of the external cause
CPT/HCPCS: 43281; 00790; 36415; 36416; 80048; 85025; 85610; 87426; 93005; 96361; 96374; 96376; 99218; 99251; C9803; J7030; J7120; G0378; G0463; J2405

== ENCOUNTER → 2021-09-19 | Outpatient (CLI) | payer MEDICARE, OTHER, SELFPAY ==
--- NOTE | 2021-09-19 12:47 | RAD_ITS ---
EXAM: XR THORACIC SPINE, 3 VIEWS CLINICAL INDICATION: DEGENERATING DISC PT STATES HX OF FX IN T SPINE, HX OF SURGERY ON TSPINE, PAIN THAT RADIATES TO NECK TECHNIQUE: Frontal, lateral and swimmer''s views of the thoracic spine. This report was created using Digital Guardian report Hopper technology. COMPARISON: None. FINDINGS: VERTEBRAE: T11 kyphoplasty change. Compression deformity of T11 is causing increased kyphosis of the thoracic spine. There is multilevel endplate spondylosis of the thoracic spine. There is multilevel degenerative disc disease with loss of the disc space heights. No significant facet arthropathy. DISC SPACES: See above. RAD/Thoracic Spine 3 Views IMPRESSION: 1. T11 kyphoplasty change. Compression deformity of T11 is causing increased kyphosis of the thoracic spine. 2. There are degenerative changes as noted above. Electronically Signed: Darshan Medina MD at 14:05 EDT Reading Location ID and State: [facility] / [place] , Service support ,
== END | disposition home or self-care (01) ==
LOC: RAD 12:46
PROVIDERS: PCP Family Medicine; Referring Provider Anesthesiology Pain Medicine; Visit Provider Anesthesiology Pain Medicine
DX: M51.34 Other intervertebral disc degeneration, thoracic region (principal)
CPT/HCPCS: 72072

== ENCOUNTER 2021-10-03 08:02 | Outpatient (RCR) | payer MEDICARE, OTHER, SELFPAY ==
[2021-08-31 00:42] VITALS: BMI 27.9
[2021-10-03 08:48] LABS: International Normalized Ratio 3.2; Prothrombin Time (Protime)PT. 32.7 SECONDS (11.7-14.9)
== END 2021-10-03 18:00 | disposition home or self-care (01) ==
LOC: LAB 08:02
PROVIDERS: PCP Family Medicine; Referring Provider Family Medicine; Visit Provider Family Medicine
DX: E03.9 Hypothyroidism, unspecified (principal); D68.2 Hereditary deficiency of other clotting factors; Z51.81 Encounter for therapeutic drug level monitoring; Z79.01 Long term (current) use of anticoagulants
CPT/HCPCS: 36415; 85610

== ENCOUNTER → 2021-10-17 | Outpatient (CLI) | payer MEDICARE, OTHER, SELFPAY ==
--- NOTE | 2021-10-17 17:24 | RAD_ITS ---
STUDY: X-RAY - CERVICAL SPINE REASON FOR EXAM: Female, 71 years old. PAIN TECHNIQUE: view(s) of the cervical spine were obtained. COMPARISON: None FINDINGS: Normal anterior atlantoaxial articulation. Normal odontoid process. Normal cervical lordosis. Normal vertebral bodies and endplates. Normal disc space heights. Normal visualized intervertebral neuroforamina. There is degenerative disc disease at C5-6. The soft tissue structures are unremarkable. RAD/Cerv Spine 2 or 3 Views IMPRESSION: Normal x-ray examination of the visualized cervical spine. Electronically Signed: Adiel Simon MD at 0:05 EDT ,
== END | disposition home or self-care (01) ==
LOC: RAD 17:19
PROVIDERS: PCP Family Medicine; Referring Provider Anesthesiology Pain Medicine; Visit Provider Anesthesiology Pain Medicine
DX: M50.30 Other cervical disc degeneration, unspecified cervical region (principal)
CPT/HCPCS: 72040

== ENCOUNTER 2021-10-31 09:07 | Outpatient (RCR) | payer MEDICARE, OTHER, SELFPAY ==
[2021-10-30 20:07] VITALS: BMI 27.9
[2021-10-31 09:42] LABS: International Normalized Ratio 2.4; Prothrombin Time (Protime)PT. 25.5 SECONDS (11.7-14.9)
== END 2021-10-31 23:59 | disposition home or self-care (01) ==
LOC: LAB 09:07
PROVIDERS: PCP Family Medicine; Referring Provider Family Medicine; Visit Provider Family Medicine
DX: D68.2 Hereditary deficiency of other clotting factors (principal); Z79.01 Long term (current) use of anticoagulants
CPT/HCPCS: 36415; 85610

== ENCOUNTER 2021-12-24 11:06 | Outpatient (RCR) | payer MEDICARE, OTHER, SELFPAY ==
[2021-11-30 06:32] VITALS: BMI 27.9
[2021-12-24 12:32] LABS: Absolute Lymphocyte Count 1.08 X10^3/uL (0.83-4.51); Absolute Neutrophil Count 6.2 X10^3/uL (2.0-7.7); Basophil# 0.03 X10^3/uL; Basophil% 0.4 % (0-1); Hemoglobin 14.5 g/dL (12.0-15.0); Lymphocyte # 1.08 X10^3/ul (0.83-4.51); Mean Corpuscular Hgb 31.9 pg (27.0-32.0); Mean Corpuscular Volume 96.7 fL (81-99); Mean Platelet Vol. 10.3 fl (6.2-12.0); Monocyte# 0.45 X10^3/uL; Monocyte% 5.8 % (0-10); NRBC Flagged by Analyzer 0 % (0-5); Neutrophil # 6.16 X10^3/uL (2.7-7.7); Neutrophil % 79.5 % (47-70); Platelet Count 269 K/mm3 (150-450); RBC Distribution Width CV 13.8 % (11.6-14.6); RBC Distribution Width SD 49.5 fl (35.1-43.9); Red Blood Count 4.55 M/mm3 (4.2-5.4); White Blood Count 7.7 K/mm3 (4.4-11.0)
[2021-12-24 12:44] LABS: International Normalized Ratio 2.4
[2021-12-24 13:08] LABS: ALB/GLOB Ratio 1.2 RATIO (0.9-2.4); AST(SGOT) 21 U/L (15-37); Alanine Aminotransfer ALT/SGPT 31 U/L (13-56); Albumin, Serum 3.7 g/dL (3.2-5.0); Alkaline Phosphatase 104 U/L (45-117); Anion Gap 8 (5-15); BUN 11 mg/dL (7-18); Calcium,Total 8.9 mg/dL (8.5-10.1); Chloride 108 mmol/L (98-107); Creatinine, Serum 0.85 mg/dL (0.55-1.02); EST Glomerular Filtration Rate 70 mL/min (>60); Est Glom Filt Rate - Afr Amer 85 mL/min (>60); Globulin 3.2 g/dL (2.2-4.2); Glucose 98 mg/dL (74-106); Potassium 3.9 mmol/L (3.5-5.1); Protein, Total 6.9 g/dL (6.4-8.2); Sodium Level 141 mmol/L (136-145); T4 Free Direct 1.57 ng/dL (0.76-1.46); Thyroid Stim Hormone (TSH) 0.12 uIU/mL (0.358-3.74)
== END 2021-12-30 01:54 | disposition home or self-care (01) ==
LOC: LAB 11:06
PROVIDERS: PCP Family Medicine; Referring Provider Family Medicine; Visit Provider Family Medicine
DX: D68.2 Hereditary deficiency of other clotting factors (principal); Z79.01 Long term (current) use of anticoagulants; E03.9 Hypothyroidism, unspecified; R42 Dizziness and giddiness; Z51.81 Encounter for therapeutic drug level monitoring
CPT/HCPCS: 36415; 80053; 84439; 84443; 84481; 85025; 85610

== ENCOUNTER → 2021-12-28 | Outpatient (CLI) | payer MEDICARE, OTHER, SELFPAY ==
--- NOTE | 2021-12-28 06:53 | CT_ITS ---
STUDY: CT BRAIN WITHOUT CONTRAST REASON FOR EXAM: Female, 71 years old. DIZZINESS RADIATION DOSAGE (If Supplied By Facility): CTDIvol = ( 44.99 ) mGy, DLP = ( 796.11 ) mGycm TECHNIQUE: Transaxial CT imaging of the brain was performed without administration of intravenous contrast material. Individualized dose optimization techniques were used for this CT. COMPARISON: Comparison is made with prior examination of 08/18/2020. FINDINGS: Normal soft tissue structures. Normal calvarium. There is mild cerebral atrophy with widening of the extra-axial spaces and ventricular dilatation. Normal white matter tracts of the cerebral hemispheres. Normal basal ganglia and thalami. Normal brainstem. Normal cerebellum. There is no intracranial hemorrhage. There are no findings of an acute ischemic infarction. Atherosclerotic plaque formation of the vertebral arteries. Normal visualized paranasal sinuses. CT/Brain/Head without Contrast IMPRESSION: Chronic involutional changes of the brain. Electronically Signed: Efrain Klein MD at 8:35 EDT ,
== END | disposition home or self-care (01) ==
LOC: CT 06:51
PROVIDERS: PCP Family Medicine; Referring Provider Family Medicine; Visit Provider Family Medicine
DX: R42 Dizziness and giddiness (principal); R51.9 Headache, unspecified; Z91.81 History of falling; Z79.01 Long term (current) use of anticoagulants
CPT/HCPCS: 70450

== ENCOUNTER → 2022-01-29 | Outpatient (CLI) | payer MEDICARE, OTHER, SELFPAY ==
--- NOTE | 2022-01-29 13:35 | RAD_ITS ---
STUDY: X-RAY - PELVIS AND RIGHT HIP REASON FOR EXAM: Female, 71 years old. FALL TECHNIQUE: 3 views of the pelvis and hip. COMPARISON: Comparison is made with prior study 02/21/2021. FINDINGS: There is a non-specific bowel gas pattern. Normal visualized soft tissue structures. Normal bilateral iliac wings, sacroiliac joints and visualized sacrum. Normal bilateral superior and inferior pubic rami. There are degenerative changes of the pubic symphysis with articular narrowing and sclerosis. Normal bilateral ischial tuberosities. Normal visualized femoral head. Normal acetabulum. There is mild articular joint space narrowing of the hip. RAD/HIP, UNI W/ Pelvis 2-3 Views IMPRESSION: No acute abnormality is seen. Electronically Signed: Efrain Klein MD at 13:44 EDT ,
== END | disposition home or self-care (01) ==
LOC: RAD 13:19
PROVIDERS: PCP Family Medicine; Referring Provider Family Medicine; Visit Provider Family Medicine
DX: M25.551 Pain in right hip (principal); W19.XXXA Unspecified fall, initial encounter
CPT/HCPCS: 73502

== ENCOUNTER 2022-02-19 08:58 | Outpatient (RCR) | payer MEDICARE, OTHER, SELFPAY ==
[2021-12-30 01:54] VITALS: BMI 27.9
[2022-02-19 09:51] LABS: International Normalized Ratio 2.7
== END 2022-02-19 18:00 | disposition home or self-care (01) ==
LOC: LAB 08:58
PROVIDERS: PCP Family Medicine; Referring Provider Family Medicine; Visit Provider Family Medicine
DX: D68.2 Hereditary deficiency of other clotting factors (principal); Z79.01 Long term (current) use of anticoagulants
CPT/HCPCS: 36415; 85610

== ENCOUNTER → 2022-03-05 | Outpatient (CLI) | payer MEDICARE, OTHER, SELFPAY ==
[2022-03-05 08:15] LABS: Free T3 2.1 pg/mL (2.18-3.98); T4 Free Direct 1.13 ng/dL (0.76-1.46)
== END | disposition home or self-care (01) ==
LOC: LAB 07:11
PROVIDERS: PCP Family Medicine; Referring Provider Family Medicine; Visit Provider Family Medicine
DX: E03.9 Hypothyroidism, unspecified (principal)
CPT/HCPCS: 36415; 84439; 84443; 84481

== ENCOUNTER → 2022-05-07 | Outpatient (CLI) | payer MEDICARE, OTHER, SELFPAY ==
[2022-05-07 15:13] LABS: Thyroid Stim Hormone (TSH) 1.23 uIU/mL (0.358-3.74)
== END | disposition home or self-care (01) ==
LOC: BFHLAB 13:45
PROVIDERS: PCP Family Medicine; Visit Provider Family Medicine
DX: E03.9 Hypothyroidism, unspecified (principal)
CPT/HCPCS: 36415; 84439; 84443; 84481

== ENCOUNTER → 2022-06-26 | Outpatient (CLI) | payer MEDICARE, OTHER, SELFPAY ==
[2022-06-26 12:17] LABS: Absolute Lymphocyte Count 1.42 X10^3/uL (0.83-4.51); Absolute Neutrophil Count 2.8 X10^3/uL (2.0-7.7); Basophil# 0.04 X10^3/uL; Basophil% 0.8 % (0-1); Eosinophil# 0.08 X10^3/uL; Eosinophils% 1.6 % (0-5); Hematocrit 43.7 % (37-47); Hemoglobin 14.1 g/dL (12.0-15.0); Lymphocyte # 1.42 X10^3/ul (0.83-4.51); Lymphocyte % 29.2 % (19-41); Mean Corp Hgb Conc 32.3 g/dL (32-36); Mean Corpuscular Hgb 31.7 pg (27.0-32.0); Mean Corpuscular Volume 98.2 fL (81-99); Mean Platelet Vol. 10.2 fl (6.2-12.0); Monocyte% 10.3 % (0-10); NRBC Flagged by Analyzer 0 % (0-5); Neutrophil # 2.81 X10^3/uL (2.7-7.7); Neutrophil % 57.7 % (47-70); Platelet Count 246 K/mm3 (150-450); RBC Distribution Width CV 13.2 % (11.6-14.6); RBC Distribution Width SD 47.7 fl (35.1-43.9); Red Blood Count 4.45 M/mm3 (4.2-5.4); White Blood Count 4.9 K/mm3 (4.4-11.0)
[2022-06-26 12:54] LABS: ALB/GLOB Ratio 1.2 RATIO (0.9-2.4); AST(SGOT) 22 U/L (15-37); Alanine Aminotransfer ALT/SGPT 36 U/L (13-56); Albumin, Serum 3.6 g/dL (3.2-5.0); Alkaline Phosphatase 180 U/L (45-117); Anion Gap 7 (5-15); BUN 11 mg/dL (7-18); Calcium,Total 8.6 mg/dL (8.5-10.1); Chloride 106 mmol/L (98-107); Cholesterol 168 mg/dL (200); Creatinine, Serum 0.84 mg/dL (0.55-1.02); EST Glomerular Filtration Rate 71 mL/min (>60); Est Glom Filt Rate - Afr Amer 85 mL/min (>60); Globulin 2.9 g/dL (2.2-4.2); Glucose 88 mg/dL (74-106); High Density Lipoprotein 80 mg/dL; Protein, Total 6.5 g/dL (6.4-8.2); Sodium Level 140 mmol/L (136-145); Triglycerides 72 mg/dL; Very Low Density Lipoprotein 14 mg/dL (5-40); Vitamin D,25 Hydroxy 33.7 ng/mL
== END | disposition home or self-care (01) ==
LOC: BFHLAB 11:09
PROVIDERS: PCP Family Medicine; Visit Provider Family Medicine
DX: Z51.81 Encounter for therapeutic drug level monitoring (principal); D68.2 Hereditary deficiency of other clotting factors; Z79.01 Long term (current) use of anticoagulants; E78.5 Hyperlipidemia, unspecified; E55.9 Vitamin D deficiency, unspecified
CPT/HCPCS: 36415; 80053; 80061; 82306; 85025; 85610

== ENCOUNTER → 2022-07-10 | Outpatient (CLI) | payer MEDICARE, OTHER, SELFPAY ==
--- NOTE | 2022-07-10 07:13 | BI_ITS ---
MAMMOGRAPHY - BILATERAL SCREENING REASON FOR EXAM: Female, 72 years old. Routine annual screening examination. PERTINENT HISTORY: Aunts with breast cancer. Remote right excisional breast biopsy. TECHNIQUE: Digital bilateral breast brayan (3D mammographic acquisition) in the CC and MLO projections. 2-D mediolateral oblique (MLO) and craniocaudad (CC) views of both breasts were obtained. CAD: Full Field Digital Mammography with Computer Added Detection was performed. COMPARISON: Comparison is made with prior study dated 07/09/2021 and 07/06/2020. FINDINGS: Breast Composition: There are scattered areas of fibroglandular density. There are no dominant masses or suspicious calcifications. Stable small benign-appearing left axillary lymph nodes. No other significant abnormalities are identified. There has been no significant change since the prior study. BI/SCRN MAMM (CAD)W/BRAYAN BILAT IMPRESSION: Stable bilateral screening mammogram. Yearly follow-up mammogram recommended. (A) ASSESSMENT CATEGORY: BIRADS Category 2: Benign. A letter regarding these results will be sent to the patient by the facility within 30 days. Approximately 10% of breast cancers are not detected by mammography. A normal mammogram should not delay biopsy of a clinically suspicious abnormality. [id number] Electronically Signed: Efrain Klein MD at 8:33 EST ,
== END | disposition home or self-care (01) ==
LOC: OPBI 07:10
PROVIDERS: PCP Family Medicine; Referring Provider Family Medicine; Visit Provider Family Medicine
DX: Z12.31 Encounter for screening mammogram for malignant neoplasm of breast (principal); Z80.3 Family history of malignant neoplasm of breast
CPT/HCPCS: 77063; 77067

== ENCOUNTER → 2022-08-19 | Outpatient (CLI) | payer MEDICARE, OTHER, SELFPAY ==
--- NOTE | 2022-08-19 11:18 | RAD_ITS ---
STUDY: X-RAY - RIGHT SHOULDER REASON FOR EXAM: Female, 72 years old. Shoulder pain. TECHNIQUE: 4 view(s) of the shoulder. COMPARISON: None. FINDINGS: Osteopenia. Mild arthrosis of the glenohumeral and acromioclavicular joints. Normal humeral head and visualized proximal humerus. Normal soft tissues. Normal visualized pulmonary apex. RAD/Shoulder min 2 Views IMPRESSION: Osteopenia with mild arthrosis of the glenohumeral and acromioclavicular joints. No acute abnormality or erosive changes. Electronically Signed: Jt Nam, at 11:40 EDT ,
== END | disposition home or self-care (01) ==
LOC: RAD 11:12
PROVIDERS: PCP Family Medicine; Visit Provider Anesthesiology Pain Medicine
DX: M25.511 Pain in right shoulder (principal)
CPT/HCPCS: 73030

== ENCOUNTER → 2022-09-16 | Outpatient (CLI) | payer MEDICARE, OTHER, SELFPAY ==
[2022-09-16 12:36] LABS: International Normalized Ratio 2.4; Prothrombin Time (Protime)PT. 26.2 SECONDS (11.7-14.9)
== END | disposition home or self-care (01) ==
PROVIDERS: PCP Family Medicine; Referring Provider Family Medicine; Visit Provider Family Medicine
DX: I82.401 Acute embolism and thrombosis of unspecified deep veins of right lower extremity (principal)
CPT/HCPCS: 36415; 85610

== ENCOUNTER 2022-10-07 11:30 | Outpatient (RCR) | payer MEDICARE, OTHER, SELFPAY ==
--- NOTE | 2022-09-10 11:50 | HP.PTEVAL_ITS ---
Patient's Visit Information SHANE CHAMBERS is a 72 year old F referred to Physical Therapy by MIRYAM Lopez with a diagnosis of R shoulder pain/bursitis/OA. Date of Evaluation: 09/10/22 Physical Therapist: MARIL Cao - Visit Plan Frequency: 2-3x /Week Duration: 2 Months Plan: 2X/ week 8 weeks for R shoulder PROM/AAROM/AROM, stretching, strengthening of scapular and RC, and postural strength, with HEP and US/MH if needed. HEP: supine wand bench press and supine wand flexion. - Subjective Pt started getting sever in R shoulder (sometimes it would be fine and if she stretched her arm out and then she would get sharp pain to the point she could not move her arm for awhile). Dr Walters ordered and x-ray and it got worse after the x-ray. 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 She got a cortizone shot last Friday morning in her R shoulder and pain was severe all last week until Friday. She has a big bruise from the shot. She is able to use her R shoulder but last night she had a burning pain in the middle of her upper arm. The shot seems to have helped some. Dr cunningham said to come to PT. She is R handed. She has no additional N&T. - Pain R shoulder pain Pain Intensity (Out of 10): 5 - Objective Pt holds arm and is very guarded and she sits with flexed trunk and rounded shoulders. R handed: R shoulder AROM: flex 94, ABD 90, IR L1 (painful), ER 52. L shoulder AROM: Flex 135, abd 95, IR T12, ER 52. R shoulder MMT: R ER 4, IR 5.1, ABD 3.1, flex 0. L shoulder MMT: ER 4.6, IR 4.6, ABD 5, flex 4.1. Posture: sits with rounded shoulders and FW head. C-spine AROM: flex 100%. ext 10%, Rot R 75, Rot L 50, Sb B 50%. Bicep reflex 2+/3. PROM R shoulder: pt very guarded and painful and unable to get PROM as much as active ROM. supine wand shoulder press 2 X 10. Supine wand flex 2 X 10 - Balance/Special Test Scores Quick DASH Score: 56.8175 - Goals Goal 1:: I HEP Goal Time Frame: 4-6 Weeks Goal 2:: Increase R shoulder AROM (at time of the eval: R shoulder AROM: flex 94, ABD 90, IR L1 (painful), ER 52. L shoulder AROM: Flex 135, abd 95, IR T12, ER 52). Goal Time Frame: 4-6 Weeks Goal 3:: Increase R shoulder strength (at the time of the eval: R shoulder MMT: R ER 4, IR 5.1, ABD 3.1, flex 0. L shoulder MMT: ER 4.6, IR 4.6, ABD 5, flex 4.1). Goal Time Frame: 4-6 Weeks Goal 4:: Decrease R shoulder Pain to 2/10 with ADL's and regular R shoulder daily movement Goal Time Frame: 6-8 Weeks Goal 5:: Sit with more upright posture Goal Time Frame: 6-8 Weeks - Rehabilitation Potential Rehabilitation Potential: Good - Anticipated Interventions Patient/Client Instruction: Educate patient on: Condition, Plan of Care For the Purpose of:: To decrease pain, To decrease swelling/inflammation, To increase ROM, To improve nutrient delivery to tissue, To improve muscle performance and motor function, To improve ability to perform ADL's, To increase tolerance to activity/condition/position, To improve performance and independence with ADL's, To decrease level of supervision to perform tasks, To improve ability of physical actions for home/community/work/leisure, To improve gait and locomotor functions, To improve health of tissue, To decrease soft tissue restriction, To increase flexibility/ROM Therapeutic Exercise to Include: Strength training, Endurance training, Postural training, Flexibilty training, Gait and locomotor training, Neuromotor development, Passive ROM, Active ROM, Scapular Strength/Stabilization For the Purpose of:: To decrease pain, To increase ROM, To improve nutrient delivery to tissue, To increase oxygenation perfusion, To improve muscle performance and motor function, To improve ability to perform ADL's, To increase tolerance to activity/condition/position, To improve performance and independence with ADL's, To decrease level of supervision to perform tasks, To improve ability of physical actions for home/community/work/leisure, To improve gait and locomotor functions, To improve health of tissue, To decrease soft tissue restriction, To increase flexibility/ROM Functional Training to Include: Gait training For the Purpose of:: To improve gait and locomotor functions, To improve safety with gait Manual Therapy Techniques to Include: Mobilization, Passive ROM, Soft tissue mobilization For the Purpose of:: To decrease pain, To increase ROM, To improve nutrient delivery to tissue, To improve muscle performance and motor function, To improve ability to perform ADL's, To increase tolerance to activity/condition/position, To improve performance and independence with ADL's, To decrease level of supervision to perform tasks, To improve ability of physical actions for home/community/work/leisure, To decrease soft tissue restriction, To increase flexibility/ROM Thermo therapy (hot pack): Yes Ultrasound (thermal/non thermal): Yes For the Purpose of:: To decrease pain, To increase ROM, To improve nutrient deli very to tissue, To improve muscle performance and motor function Thank you for the opportunity to evaluate your patient. For Medicare and Medicare HMO plans, please review the plan of care and approve it. It will need to be FAXED BACK to us at [phone] for Medicare purposes. For Medicare only, by signing this I certify the plan of care. Please let me know if there are questions or concerns regarding this plan of care. Physician Signature: Date:
--- NOTE | 2022-10-07 11:51 | HP.PTREVAL_ITS ---
MIRYAM Lopez, It has been my pleasure to treat SHANE CHAMBERS over the last 8 visits for R shoulder pain/bursitis/OA. Please see the progress note below for an update on the physical therapy plan of care! Subjective: Pt saw the PA last week and had an MRI this past Friday and she sees them this Friday for the results. She had a bad day yesterday. She has pain in the front of the shoulder and pain under the arm while she was driving. The pain in the shoulder could have been from how she had to hold the shoulder during the MRI. The pain is keeping her up some nights but not all. Reaching has gotten better Objective/Function: R shoulder AROM: flex 127, ABD 119, IR L1 (painful), ER 52. R shoulder MMT: R ER 4, IR 5.1, ABD 3.1, flex 0. Posture seems to be better unless she is painful Plan Plan: Hold chart until when she gets the results of her MRI and pt will call in Balance/Gait/Functional tests - Balance/Special Test Scores Quick DASH Score: 54.5450 Goals Goal 1:: I HEP Goal Time Frame: 4-6 Weeks Goal Progress: Goal Met Goal 2:: Increase R shoulder AROM (at time of the eval: R shoulder AROM: flex 94, ABD 90, IR L1 (painful), ER 52. L shoulder AROM: Flex 135, abd 95, IR T12, ER 52). Goal Time Frame: 4-6 Weeks Goal Progress: Progressing Goal 3:: Increase R shoulder strength (at the time of the eval: R shoulder MMT: R ER 4, IR 5.1, ABD 3.1, flex 0. L shoulder MMT: ER 4.6, IR 4.6, ABD 5, flex 4 .1). Goal Time Frame: 4-6 Weeks Goal Progress: Not Progressing Goal 4:: Decrease R shoulder Pain to 2/10 with ADL's and regular R shoulder daily movement Goal Time Frame: 6-8 Weeks Goal Progress: Progressing Goal 5:: Sit with more upright posture Goal Time Frame: 6-8 Weeks Goal Progress: Progressing Anticipated Interventions Patient/Client Instruction: Educate patient on: Condition, Plan of Care For the Purpose of:: To decrease pain, To decrease swelling/inflammation, To increase ROM, To improve nutrient delivery to tissue, To improve muscle performance and motor function, To improve ability to perform ADL's, To increase tolerance to activity/condition/position, To improve performance and independence with ADL's, To decrease level of supervision to perform tasks, To improve ability of physical actions for home/community/work/leisure, To improve gait and locomotor functions, To improve health of tissue, To decrease soft t issue restriction, To increase flexibility/ROM Therapeutic Exercise to Include: Strength training, Endurance training, Postural training, Flexibilty training, Gait and locomotor training, Neuromotor development, Passive ROM, Active ROM, Scapular Strength/Stabilization For the Purpose of:: To decrease pain, To increase ROM, To improve nutrient delivery to tissue, To increase oxygenation perfusion, To improve muscle performance and motor function, To improve ability to perform ADL's, To increase tolerance to activity/condition/position, To improve performance and independence with ADL's, To decrease level of supervision to perform tasks, To improve ability of physical actions for home/community/work/leisure, To improve gait and locomotor functions, To improve health of tissue, To decrease soft tissue restriction, To increase flexibility/ROM Functional Training to Include: Gait training For the Purpose of:: To improve gait and locomotor functions, To improve safety with gait Manual Therapy Techniques to Include: Mobilization, Passive ROM, Soft tissue mobilization For the Purpose of:: To decrease pain, To increase ROM, To improve nutrient delivery to tissue, To improve muscle performance and motor function, To improve ability to perform ADL's, To increase tolerance to activity/condition/position, To improve performance and independence with ADL's, To decrease level of supervision to perform tasks, To improve ability of physical actions for home/community/work/leisure, To decrease soft tissue restriction, To increase flexibility/ROM Thermo therapy (hot pack): Yes Ultrasound (thermal/non thermal): Yes For the Purpose of:: To decrease pain, To increase ROM, To improve nutrient delivery to tissue, To improve muscle performance and motor function Please do not hesitate to contact me at [phone] by phone or if you have questions or concerns regarding this new plan of care! Sincerely, Estrella Lopez, MPT
--- NOTE | 2022-10-16 17:29 | HP.PT.NRP ---
SHANE CHAMBERS was seen in my office for initial evaluation on 09/10/22. The following Plan of Care was established for this patient: Initial Frequency: 2-3x /Week Initial Duration: 2 Months Patient/Client Instruction: Educate patient on: Condition, Plan of Care For the Purpose of:: To decrease pain, To decrease swelling/inflammation, To increase ROM, To improve nutrient delivery to tissue, To improve muscle performance and motor function, To improve ability to perform ADL's, To increase tolerance to activity/condition/position, To improve performance and independence with ADL's, To decrease level of supervision to perform tasks, To improve ability of physical actions for home/community/work/leisure, To improve gait and locomotor functions, To improve health of tissue, To decrease soft tissue restriction, To increase flexibility/ROM Therapeutic Exercise to Include: Strength training, Endurance training, Postural training, Flexibilty training, Gait and locomotor training, Neuromotor development, Passive ROM, Active ROM, Scapular Strength/Stabilization For the Purpose of:: To decrease pain, To increase ROM, To improve nutrient delivery to tissue, To increase oxygenation perfusion, To improve muscle performance and motor function, To improve ability to perform ADL's, To increase tolerance to activity/condition/position, To improve performance and independence with ADL's, To decrease level of supervision to perform tasks, To improve ability of physical actions for home/community/work/leisure, To improve gait and locomotor functions, To improve health of tissue, To decrease soft tissue restriction, To increase flexibility/ROM Functional Training to Include: Gait training For the Purpose of:: To improve gait and locomotor functions, To improve safety with gait Manual Therapy Techniques to Include: Mobilization, Passive ROM, Soft tissue mobilization For the Purpose of:: To decrease pain, To increase ROM, To improve nutrient delivery to tissue, To improve muscle performance and motor function, To improve ability to perform ADL's, To increase tolerance to activity/condition/position, To improve performance and independence with ADL's, To decrease level of supervision to perform tasks, To improve ability of physical actions for home/community/work/leisure, To decrease soft tissue restriction, To increase flexibility/ROM Thermo therapy (hot pack): Yes Ultrasound (thermal/non thermal): Yes For the Purpose of:: To decrease pain, To increase ROM, To improve nutrient delivery to tissue, To improve muscle performance and motor function This patient was last seen in our office 10/07/22. Pertinent comments regarding their Physical therapy will appear below: Pt called and stated that the MRI did show a tear and she has to wait to see a surgeon. She will continue with her HEP and will be discharged at this time. DC PT At this point I will be discontinuing this patient from physical therapy. I would be happy to see this patient again in the future if found appropriate by the physician. Thank you! Estrella Lopez, MARLI Balance/Gait/Functional tests - Balance/Special Test Scores Quick DASH Score: [phone]
== END 2022-10-07 19:00 | disposition home or self-care (01) ==
LOC: PT 11:30
PROVIDERS: PCP Family Medicine; Referring Provider Physician Assistant; Visit Provider Physician Assistant
DX: M75.51 Bursitis of right shoulder (principal); M19.011 Primary osteoarthritis, right shoulder
CPT/HCPCS: 97035; 97110; 97140; 97161; 97530

== ENCOUNTER → 2022-10-09 | Outpatient (CLI) | payer MEDICARE, OTHER, SELFPAY ==
--- NOTE | 2022-10-09 07:45 | ECHOD_ITS ---
Reason For Study: Bicuspid AV Procedure This was a 2D Doppler, Color Flow transthoracic echocardiogram. Exam performed in department. Left Ventricle Normal LV size. The estimated ejection fraction is 55 %. Diastolic function is indeterminate. No regional wall motion abnormalities noted. Right Ventricle Normal RV size. Normal systolic function. Atria Normal left atrium. Normal right atrium. No doppler evidence for ASD. Mitral Valve There is no mitral valve stenosis. No mitral valve insufficiency. Tricuspid Valve There is no tricuspid stenosis. Trivial tricuspid valve insufficiency. Pulmonary artery systolic pressure is 40 mmHg. Aortic Valve Bicuspid aortic valve. There is no aortic stenosis. No aortic valve insufficiency. Pulmonic Valve There is no pulmonic valvular stenosis. No pulmonic valve insufficiency. Great Vessels Normal aortic root. Pericardium/Pleural No pericardial effusion. MMode/2D Measurements & Calculations LVIDd: 4.6 cm IVSd: 0.97 cm Ao root diam: 3.5 cm LVIDs: 2.9 cm LVPWd: 0.79 cm LA dimension: 3.4 cm RVDd: 3.4 cm FS: 36.8 % LAV(MOD-bp): 37.6 ml LA A4 area: 14.4 cm2 RA A4 area: 13.8 cm2 LAV(MOD-bp) Indexed: 24.9 ml/m2 LAV(MOD-sp2): 38.5 ml LAV(MOD-sp4): 36.6 ml Time Measurements MV dec time: 0.16 sec Doppler Measurements & Calculations MV E max jt: 50.2 cm/sec Lat Peak E' Jt: 6.1 cm/sec Med Peak E' Jt: 5.6 cm/sec MV A max jt: 66.4 cm/sec E/E' lat: 8.2 E/E' med: 9.0 MV E/A: 0.76 MV V2 max: 77.3 cm/sec MV P1/2t max jt: 70.4 cm/sec Ao V2 max: 125.0 cm/sec MV max P.4 mmHg MV P1/2t: 68.3 msec Ao max P.2 mmHg MV V2 mean: 35.7 cm/sec MV dec slope: 301.7 cm/sec2 Ao V2 mean: 82.1 cm/sec MV mean P.64 mmHg MVA(P1/2t): 3.2 cm2 Ao mean P.1 mmHg MV V2 VTI: 24.2 cm Ao V2 VTI: 33.3 cm AV (velocity ratio): 0.58 LV V1 max: 73.0 cm/sec PA V2 max: 61.1 cm/sec TR max jt: 288.8 cm/sec LV V1 max P.1 mmHg PA V2 mean: 46.8 cm/sec TR max P.4 mmHg LV V1 mean P.2 mmHg LV V1 mean: 53.0 cm/sec LV V1 VTI: 19.3 cm ECHO/Echo Complete Interpretation Summary The estimated ejection fraction is 55 %. Diastolic function is indeterminate. Bicuspid aortic valve. Ordering Physician: Harry Hamilton Referring Physician: Adelina Alvarenga Performed By: Matty Arguelles RCS
== END | disposition home or self-care (01) ==
LOC: CVS 07:44
PROVIDERS: PCP Family Medicine; Referring Provider Internal Medicine Cardiovascular Disease; Visit Provider Internal Medicine Cardiovascular Disease
DX: I25.10 Atherosclerotic heart disease of native coronary artery without angina pectoris (principal); Q23.1 Congenital insufficiency of aortic valve
CPT/HCPCS: 93306

== ENCOUNTER → 2022-11-20 | Outpatient (CLI) | payer MEDICARE, OTHER, SELFPAY ==
--- NOTE | 2022-11-20 14:40 | RAD_ITS ---
INDICATION: abdominal pain EXAMINATION/TECHNIQUE: X-RAY - XR Abdomen 1 View COMPARISON: CT May 07, 2021 FINDINGS: BOWEL GAS PATTERN: Nonspecific non-obstructive bowel gas pattern. No focal stomach or bowel distention. Moderate to large proximal to mid colonic stool burden. FREE AIR: Not well assessed on a supine view. ORGANOMEGALY: Not seen. CALCIFICATIONS: No concerning calcifications. LOWER CHEST: No acute pathology. BONES AND SOFT TISSUES: T11 vertebroplasty change. Lower lumbar spondylosis with dextrocurvature and L4-5, L5-S1 facet arthropathy.. RAD/Abdomen Single View IMPRESSION: Nonspecific nonobstructive bowel gas pattern. Moderate to large proximal to mid colonic stool burden. Lower lumbar facet arthropathy. Electronically Signed: Ankur Manning MD at 11:50 EDT ,
[2022-11-20 16:06] LABS: Absolute Lymphocyte Count 1.35 X10^3/uL (0.83-4.51); Absolute Neutrophil Count 3.6 X10^3/uL (2.0-7.7); Basophil# 0.06 X10^3/uL; Basophil% 1.1 % (0-1); Eosinophil# 0.07 X10^3/uL; Eosinophils% 1.3 % (0-5); Hematocrit 41.6 % (37-47); Hemoglobin 13.3 g/dL (12.0-15.0); Lymphocyte # 1.35 X10^3/ul (0.83-4.51); Lymphocyte % 24.3 % (19-41); Mean Corpuscular Hgb 31.9 pg (27.0-32.0); Mean Corpuscular Volume 99.8 fL (81-99); Mean Platelet Vol. 10.1 fl (6.2-12.0); Monocyte# 0.44 X10^3/uL; Monocyte% 7.9 % (0-10); NRBC Flagged by Analyzer 0 % (0-5); Neutrophil # 3.63 X10^3/uL (2.7-7.7); Neutrophil % 65.2 % (47-70); Platelet Count 265 K/mm3 (150-450); RBC Distribution Width CV 13.6 % (11.6-14.6); RBC Distribution Width SD 50.3 fl (35.1-43.9); Red Blood Count 4.17 M/mm3 (4.2-5.4); White Blood Count 5.6 K/mm3 (4.4-11.0)
[2022-11-20 16:12] LABS: International Normalized Ratio 2.7; Prothrombin Time (Protime)PT. 29.4 SECONDS (11.7-14.9)
[2022-11-20 16:26] LABS: Erythrocyte Sedimentation Rate 5 mm/hr (0-30)
[2022-11-20 16:29] LABS: CRP < 2.90 mg/L (0.0-3.0)
[2022-11-25 00:07] LABS: Beef <0.10 kU/L (Class 0); Chocolate <0.10 kU/L (Class 0); Clam <0.10 kU/L (Class 0); Codfish <0.10 kU/L (Class 0); Corn <0.10 kU/L (Class 0); Egg, White <0.10 kU/L (Class 0); Egg, Whole <0.10 kU/L (Class 0); Milk (Cow) <0.10 kU/L (Class 0); Peanut <0.10 kU/L (Class 0); Pork <0.10 kU/L (Class 0); SCALLOP <0.10 kU/L (Class 0); SESAME SEED <0.10 kU/L (Class 0); Shrimp <0.10 kU/L (Class 0); Soybean <0.10 kU/L (Class 0); Walnut, (Food) <0.10 kU/L (Class 0); Wheat <0.10 kU/L (Class 0)
== END | disposition home or self-care (01) ==
LOC: RAD 14:37
PROVIDERS: PCP Family Medicine; Referring Provider Internal Medicine Gastroenterology; Visit Provider Internal Medicine Gastroenterology
DX: R19.4 Change in bowel habit (principal); D68.2 Hereditary deficiency of other clotting factors; K22.4 Dyskinesia of esophagus; R42 Dizziness and giddiness
CPT/HCPCS: 36415; 74018; 85025; 85610; 85652; 86003; 86005; 86140

== ENCOUNTER → 2022-12-04 | Outpatient (CLI) | payer MEDICARE, OTHER, SELFPAY ==
[2022-12-04 18:22] LABS: ALB/GLOB Ratio 1.2 RATIO (0.9-2.4); AST(SGOT) 30 U/L (15-37); Alanine Aminotransfer ALT/SGPT 33 U/L (13-56); Albumin, Serum 3.6 g/dL (3.2-5.0); Alkaline Phosphatase 141 U/L (45-117); Anion Gap 3 (5-15); BUN 15 mg/dL (7-18); BUN/Creat Ratio 19.1 RATIO (10-20); Calcium,Total 8.8 mg/dL (8.5-10.1); Chloride 110 mmol/L (98-107); Creatinine, Serum 0.79 mg/dL (0.55-1.02); EST Glomerular Filtration Rate 77 mL/min (>60); Est Glom Filt Rate - Afr Amer 93 mL/min (>60); Globulin 3.1 g/dL (2.2-4.2); Glucose 92 mg/dL (74-106); Potassium 4.5 mmol/L (3.5-5.1); Protein, Total 6.7 g/dL (6.4-8.2); Sodium Level 140 mmol/L (136-145); T4 Free Direct 1.12 ng/dL (0.76-1.46); Thyroid Stim Hormone (TSH) 1.55 uIU/mL (0.358-3.74)
== END | disposition home or self-care (01) ==
LOC: LAB 15:57
PROVIDERS: PCP Family Medicine; Referring Provider Family Medicine; Visit Provider Family Medicine
DX: E03.9 Hypothyroidism, unspecified (principal)
CPT/HCPCS: 36415; 80053; 84439; 84443; 84481

== ENCOUNTER → 2022-12-17 | Outpatient (CLI) | payer MEDICARE, OTHER, SELFPAY ==
--- NOTE | 2022-12-17 16:40 | RAD_ITS ---
EXAM: XR LUMBOSACRAL SPINE, 2 OR 3 VIEWS CLINICAL INDICATION: LOW BACK PAIN TECHNIQUE: Frontal and lateral views of the lumbar spine and sacrum. COMPARISON: 04/25/2021 FINDINGS: VERTEBRAE: There is an accentuated kyphosis at the T11 vertebral body which is stable. there is orthopedic cement from a previous kyphoplasty at T11. DISC SPACES: There is multilevel degenerative change in lumbar spine with disc space narrowing and osteophyte formation. There is mild curvature of the lumbar spine. GASTROINTESTINAL TRACT: Unremarkable as visualized. Included bowel gas pattern is non-obstructive. RAD/L/S Spine Min 4 Views IMPRESSION: 1. No acute osseous abnormalities. There has been no significant change from the reference exam. 2. Multilevel degenerative change with disc space narrowing and osteophyte formation. There is a kyphoplasty at T11 with a mildly accentuated kyphosis at that level. Electronically Signed: Alfredo Lambert MD at 22:17 EDT ,
== END | disposition home or self-care (01) ==
LOC: RAD 16:38
PROVIDERS: PCP Family Medicine; Referring Provider Nurse Practitioner Family; Visit Provider Nurse Practitioner Family
DX: M54.50 Low back pain, unspecified (principal)
CPT/HCPCS: 72110

== ENCOUNTER 2022-12-18 17:00 | Outpatient (RCR) | payer MEDICARE, OTHER, SELFPAY ==
--- NOTE | 2022-11-21 09:07 | HP.PTEVAL_ITS ---
Patient's Visit Information SHANE CHAMBERS is a 72 year old F referred to Physical Therapy by Dr. Sidney Acosta MD with a diagnosis of R shoulder OA/muscle strain/sprain. Date of Evaluation: 11/21/22 Physical Therapist: MARLI Cao - Visit Plan Frequency: 2x /Week Duration: 2 Months Plan: 2X/ week for 8 weeks for US to the L posterior and superior shoulder ( this helped at the eval to decrease pain), L shoulder PROM (to prevent stiffness), AAROM/AROM, RC and postural/scapular strength with HEP. See effectivness of US - Subjective Pt reports that she went back to her Dr, got an MRI and it showed a tear. She is not interested in surgery and so Dr wants her to do more PT. She struggles with pushing and moving her arm FW/BW. She has been doing some wand exercises at home but it hurts to move it. She says she has better days depending on what she does. She has trouble with her neck but no pain at this time. She does not want to be treated for her neck. She also has pain on the R hip and just got a back injection. - Pain R shoulder pain Pain Intensity (Out of 10): 7 - Objective R hand dominant. R shoulder AROM: flexion 97 degrees and with good posture 103 degrees, ABD 95, ER 30, IR PSIS. L shoulder AROM: flex 144, ABD 115, ER 50, IR L5. R shoulder MMT: flex 2.9, ABD NT due to pain, ER 5. IR 4.1. L shoulder MMT: flex4.9, ABD NT, ER 7, IR 4.5. Palpation: tender to palpation on top of shoulder and posterior shoulder... very hypersensitive to the touch. Pain with all movements of the shoulder - Balance/Special Test Scores Oswestry Neck Score: 18 - Goals Goal 1:: I HEP Goal Time Frame: 6-8 Weeks Goal 2:: Increase R shoulder AROM (at time of the eval:R shoulder AROM: flexion 97 degrees and with good posture 103 degrees, ABD 95, ER 30, IR PSIS. L shoulder AROM: flex 144, ABD 115, ER 50, IR L5) Goal Time Frame: 6-8 Weeks Goal 3:: Increase R shoulder strength (at time of the eval:R shoulder MMT: flex 2.9, ABD NT due to pain, ER 5. IR 4.1. L shoulder MMT: flex4.9, ABD NT, ER 7, IR 4.5) Goal Time Frame: 6-8 Weeks Goal 4:: Decrease R shoulder pain to 3/10 with ADL's Goal Time Frame: 6-8 Weeks - Rehabilitation Potential Rehabilitation Potential: Good - Anticipated Interventions Patient/Client Instruction: Educate patient on: Condition, Plan of Care For the Purpose of:: To decrease pain, To decrease swelling/inflammation, To increase ROM, To improve nutrient delivery to tissue, To improve muscle performance and motor function, To improve ability to perform ADL's, To increase tolerance to activity/condition/position, To improve performance and inde pendence with ADL's, To decrease level of supervision to perform tasks, To improve ability of physical actions for home/community/work/leisure, To improve gait and locomotor functions, To improve health of tissue, To decrease soft tissue restriction, To increase flexibility/ROM Therapeutic Exercise to Include: Strength training, Postural training, Flexibilty training, Passive ROM, Active ROM, Scapular Strength/Stabilization For the Purpose of:: To decrease pain, To decrease swelling/inflammation, To increase ROM, To improve nutrient delivery to tissue, To improve muscle performance and motor function, To improve ability to perform ADL's, To increase tolerance to activity/condition/position, To improve performance and independence with ADL's, To improve health of tissue, To decrease soft tissue restriction, To increase flexibility/ROM Manual Therapy Techniques to Include: Passive ROM, Soft tissue mobilization For the Purpose of:: To decrease pain, To decrease swelling/inflammation, To increase ROM, To improve nutrient delivery to tissue, To improve muscle performance and motor function Cryotherapy (ice pack, ice massage): Yes Thermo therapy (hot pack): Yes Ultrasound (thermal/non thermal): Yes For the Purpose of:: To decrease pain, To decrease swelling/inflammation, To increase ROM, To improve nutrient delivery to tissue Thank you for the opportunity to evaluate your patient. For Medicare and Medicare HMO plans, please review the plan of care and approve it. It will need to be FAXED BACK to us at [phone] for Medicare purposes. For Medicare only, by signing this I certify the plan of care. Please let me know if there are questions or concerns regarding this plan of care. Physician Signature: Date:
--- NOTE | 2022-12-18 17:25 | HP.PTREVAL_ITS ---
Re-Evaluation Intro: Dr. Sidney Acosta MD, It has been my pleasure to treat SHANE CHAMBERS over the last 9 visits for R shoulder OA/muscle strain/sprain. Please see the progress note below for an update on the physical therapy plan of care! Subjective Subjective: Pt. reports overall about the same as she was previously. She is still having issues with sleeping ~2-3 hours then has to go to recliner. Pt. is also having increased low back, hip pain and recently had shots for this. Pt. reports having some relief and some increased ability to use her arm, but is still having issues. Pt. reports being 50% better. Objective Objective/Function: R shoulder AROM: currently R shoulder flexion 105deg, abd 113deg, functional ER C5, functional IR L1. PROM: R shoulder: flexion 165deg increase NW, abd 165deg increase NW, IR at 45deg 30deg, IR at 45deg 30deg. MMT: R shoulder: flexion 5.1#, abd 4.1#, ER 5 increase, IR 5.4. Pt. is still having issues with driving, sleeping and lifting. Pt. desired to follow up with physician to determine if she should continue with PT or not. Plan Plan Plan: Pt. to follow up with physician next week. I think she should continue with PT in order to progress with her strengthening. She has not made a ton of progress with Pt secondary to limited tolerance. Hopefully as her symptoms reduce she can tolerate more strengthening movements. Balance/Gait/Functional tests Balance/Special Test Scores Oswestry Neck Score: 16 Goals Goals Goal 1:: I HEP Goal Time Frame: 6-8 Weeks Goal Progress: Progressing Goal 2:: Increase R shoulder AROM (at time of the eval:R shoulder AROM: flexion 97 degrees and with good posture 103 degrees, ABD 95, ER 30, IR PSIS L shoulder AROM: flex 144, ABD 115, ER 50, IR L5) (currently R shoulder flexion 105deg, abd 113deg, functional ER C5, functional IR L1) Goal Time Frame: 6-8 Weeks Goal Progress: Progressing Goal 3:: Increase R shoulder strength (at time of the eval: R shoulder MMT: flex 2.9, ABD NT due to pain, ER 5. IR 4.1 L shoulder MMT: flex4.9, ABD NT, ER 7, IR 4.5) Currently: R shoulder: flexion 5.1#, abd 4.1#, ER 5 increase, IR 5.4. Goal Time Frame: 6-8 Weeks Goal Progress: Progressing Goal 4:: Decrease R shoulder pain to 3/10 with ADL's, (currently 5/10) Goal Time Frame: 6-8 Weeks Goal Progress: Progressing Anticipated Interventions Anticipated Interventions Patient/Client Instruction: Educate patient on: Condition and Plan of Care For the Purpose of:: To decrease pain, To decrease swelling/inflammation, To increase ROM, To improve nutrient delivery to tissue, To improve muscle performance and motor function, To improve ability to perform ADL's, To increase tolerance to activity/condition/position, To improve performance and independence with ADL's, To decrease level of supervision to perform tasks, To improve ability of physical actions for home/community/work/leisure, To improve gait and locomotor functions, To improve health of tissue, To decrease soft tissue restriction and To increase flexibility/ROM Therapeutic Exercise to Include: Strength training, Postural training, Flexibilty training, Passive ROM, Active ROM and Scapular Strength/Stabilization For the Purpose of:: To decrease pain, To decrease swelling/inflammation, To increase ROM, To improve nutrient delivery to tissue, To improve muscle performance and motor function, To improve ability to perform ADL's, To increase tolerance to activity/condition/position, To improve performance and independence with ADL's, To improve health of tissue, To decrease soft tissue restriction and To increase flexibility/ROM Manual Therapy Techniques to Include: Passive ROM and Soft tissue mobilization For the Purpose of:: To decrease pain, To decrease swelling/inflammation, To increase ROM, To improve nutrient delivery to tissue and To improve muscle performance and motor function Cryotherapy (ice pack, ice massage): Yes Thermo therapy (hot pack): Yes Ultrasound (thermal/non thermal): Yes For the Purpose of:: To decrease pain, To decrease swelling/inflammation, To inc rease ROM and To improve nutrient delivery to tissue Re-Evaluation Ending Re-evaluation ending: Please do not hesitate to contact me at [phone] by phone or if you have questions or concerns regarding this new plan of care! Sincerely, Nick Phillips DPT
--- NOTE | 2023-03-03 14:58 | HP.PTDCSUM_ITS ---
Discharge Summary D/C summary: It has been my pleasure to treat SHANE CHAMBERS referred by Dr. Sidney Acosta MD, with the diagnosis of R shoulder OA/muscle strain/sprain for a total of 9 visit(s). Discharge Date: Please see the following information for a summary of their discharge status. Subjective Subjective: Pt. reports overall about the same as she was previously. She is still having issues with sleeping ~2-3 hours then has to go to recliner. Pt. is also having increased low back, hip pain and recently had shots for this. Pt. reports having some relief and some increased ability to use her arm, but is still having issues. Pt. reports being 50% better. Pain R shoulder pain: Pain Intensity (Out of 10): 5 Overall Improvement % Improvement: 50 Objective Objective/Function: R shoulder AROM: currently R shoulder flexion 105deg, abd 113deg, functional ER C5, functional IR L1. PROM: R shoulder: flexion 165deg increase NW, abd 165deg increase NW, IR at 45deg 30deg, IR at 45deg 30deg. MMT: R shoulder: flexion 5.1#, abd 4.1#, ER 5 increase, IR 5.4. Pt. is still having issues with driving, sleeping and lifting. Pt. desired to follow up with physician to determine if she should continue with PT or not. Goals Goal 1:: I HEP Goal Progress: Progressing Goal 2:: Increase R shoulder AROM (at time of the eval:R shoulder AROM: flexion 97 degrees and with good posture 103 degrees, ABD 95, ER 30, IR PSIS L shoulder AROM: flex 144, ABD 115, ER 50, IR L5) (currently R shoulder flexion 105deg, abd 113deg, functional ER C5, functional IR L1) Goal Progress: Progressing Goal 3:: Increase R shoulder strength (at time of the eval: R shoulder MMT: flex 2.9, ABD NT due to pain, ER 5. IR 4.1 L shoulder MMT: flex4.9, ABD NT, ER 7, IR 4.5) Currently: R shoulder: flexion 5.1#, abd 4.1#, ER 5 increase, IR 5.4. Goal Progress: Progressing Goal 4:: Decrease R shoulder pain to 3/10 with ADL's, (currently 5/10) Goal Progress: Progressing Plan Plan: Pt. to follow up with physician next week. I think she should continue wit h PT in order to progress with her strengthening. She has not made a ton of progress with Pt secondary to limited tolerance. Hopefully as her symptoms reduce she can tolerate more strengthening movements. D/C Information d/c sentence: If there are questions or concerns regarding this patient's physical therapy, please feel free to call me at [phone]. Thank you for the referral of this patient. Sincerely, Estrella Lopez, MPT Balance/Gait/Functional tests Balance/Special Test Scores Oswestry Neck Score: 16 Improvement % Improvement: 50
== END 2022-12-18 19:00 | disposition home or self-care (01) ==
LOC: PT 17:00
PROVIDERS: PCP Family Medicine; Referring Provider Orthopaedic Surgery; Visit Provider Orthopaedic Surgery
DX: M54.2 Cervicalgia (principal); M19.011 Primary osteoarthritis, right shoulder; S46.011D Strain of muscle(s) and tendon(s) of the rotator cuff of right shoulder, subsequent encounter
CPT/HCPCS: 97035; 97110; 97140; 97161; 97164

== ENCOUNTER → 2023-01-08 | Outpatient (CLI) | payer MEDICARE, OTHER, SELFPAY ==
--- NOTE | 2023-01-08 09:15 | MRI_ITS ---
EXAM: MR LUMBAR SPINE WITHOUT INTRAVENOUS CONTRAST CLINICAL INDICATION: WORSENING BACK PAIN,HX SPINAL STENOSIS TECHNIQUE: Multiplanar and multisequence MR images of the lumbar spine without intravenous contrast. COMPARISON: X-ray 12/17/2022. FINDINGS: VERTEBRAE: There is exaggeration of the normal lumbar lordosis. Chronic T11 compression fracture with vertebroplasty. Chronic loss of height of the L5 vertebral body. No acute fracture. SPINAL CORD: Unremarkable. Normal position and signal intensity of the conus medullaris. SOFT TISSUES: Unremarkable. DISCS/SPINAL CANAL/NEURAL FORAMINA: T12-L1: Disc dehydration and mild disc space narrowing. Modic type II fatty endplate changes.. Normal bilateral facet joints. Normal central canal. Normal bilateral lateral recesses. Normal intervertebral neural foramina. L1-2: Disc dehydration and mild disc space narrowing. 4 mm retrolisthesis. No disc protrusion, canal or foraminal stenosis. L2-3: Marked disc space narrowing. 6 mm retrolisthesis. No demonstrated spondylolysis. No disc protrusion or canal stenosis. Foraminal stenosis is mild on the left and severe on the right due to retrolisthesis and spurring. L3-4: Disc dehydration. Small, central, noncompressive disc protrusion. No canal stenosis. Mild foraminal encroachment due to spurring. L4-5: Disc dehydration. Shallow, left paracentral spondylotic bar. Effacement of the left lateral recess due to spondylosis, mild facet and ligamentous hypertrophy. Mild foraminal stenosis due to spurring. L5-S1: Disc dehydration. Normal bilateral facet joints. Normal central canal. Normal bilateral lateral recesses. Normal intervertebral neural foramina. MRI/Spine Lumbar (Routine) IMPRESSION: No disc protrusion or canal stenosis. Listhesis at L1-2 and L2-3. Multilevel foraminal stenosis greatest at L2-3. Electronically Signed: Jo Nguyen MD at 23:09 EDT Reading Location ID and State: [id number] / Tel , Service support ,
== END | disposition home or self-care (01) ==
LOC: MRI 08:27
PROVIDERS: PCP Family Medicine; Referring Provider Family Medicine; Visit Provider Family Medicine
DX: G89.29 Other chronic pain (principal); M51.36 Other intervertebral disc degeneration, lumbar region
CPT/HCPCS: 72148

== ENCOUNTER 2023-03-10 06:08 | Day surgery (SDC) | payer MEDICARE, OTHER, SELFPAY ==
[2023-03-10] VITALS (7 sets, daily range): BP systolic 89–141; BP diastolic 61–90; PULSE 71–90; RESP 14–18; TEMP 36.1–36.6; O2SAT 97–100; BMI 24.8
[2023-03-10 06:26] LABS: INR Fingerstick 2.6
[2023-03-10] MEDS: Lactated Ringers 1,000 ML 15 ML IV (06:57)
--- NOTE | 2023-03-10 07:11 | PCM.HP.BLA ---
History and Physical Date of Admission: 03/10/23 factor V Leiden (anticoagulation), lumbar flexion s/p kyphoplasty (pain medication). Prior workup: Gastric emptying study 04.16.21 timed at 55.04 minutes (normal 12-56 minutes). Previous study 12.07.14 timed at 32.[address] abd/pel 05.07.21 found liver cysts without lesion; hiatal hernia; retained stool throughout colon. *[facility] established 06.15.21 for epigastric pain and difficulty eating. EGD performed 08.02.21 finding tortuous esophagus; LA Grade A reflux esophagitis; large hiatal hernia; gastric polyps. Biopsy found GE junction inflammation pH Probe results inconclusive for GERD. OV 08.16.21 with referral to [facility] for evaluation of hiatal hernia repair. [facility] established 08.21.21 Toupee fundoplication, laparoscopically 09.05.21 for hiatal hernia repair by Dr. Pimentel. [facility] OV 09.14.21 and doing well with recovery. OV 5 abdominal pain, likely r/t gastroparesis start Reglan; GERD, doing well s/p fundoplication; dumping syndrome, vasovagal response versus IBS-D versus dumping, food journal. OV 01.23.22 dumping syndrome, most likely following food journal review; GERD, doing well s/p fundoplication; GERD continue PPI. Stop reglan r/t unknown SE. OV 04.22.22 dumping syndrome, doing well with antidumping diet. History of fundoplication some emesis noted last month, no reflux at this time. Dysphagia, likely dysphagia without odynophagia secondary to esophageal spasm of cricopharyngeus, Flonase and Zyrtec and hyoscyamine. OV 2. Feels she is doing well since LV. She has had just one instance of suspected esophageal spasm with one severe episode and one episode which hyoscyamine was very effective. Reports intermittent burning in her esophagus with nausea without emesis on a daily basis, continued use of protonix 40mg and use TUMS PRN. OV 6 reports that previously prescribed magic mouthwash has been very helpful. For the last month she has been having small caliber stools with BM occurring 1-2/week without laxative and 3 times/week with use of laxative. Reports she was having colonoscopies every three years because of increased TA polyps of her colon and historically in her esophagus and stomach. SHANE CHAMBERS, is a 72 F who presents to the office today for ROS Const Constitutional: No fatigue, malaise, night sweats, weight change, sleep problems, abnormal sleep pattern or change in appetite ENT ENT: No difficulty swallowing, hoarseness or sore throat Cardio Cardiology: No chest pain at rest Gastro GI: No abdominal pain, belching, bloating, change in bowel habits, change in stool character, coffee ground emesis, constipation, cramping, diarrhea, heartburn, difficulty swallowing, feeling full early, excessive flatus, incontinent of stools, Vomiting blood/hematemesis, Blood in stool, loose stools, Black,tarry stools, nausea/dyspepsia, pain with swallowing, vomiting or other Musc Musculoskeletal: No joint pain Skin Skin: No yellowing of the eye or itchy eyes Neuro Neurology: No behavioral changes Psych Psychiatric: No abnormal sleep pattern, No anxiety, No behavioral changes, No change in appetite and No depression Endo Endocrine: No fatigue or weight change Aller/Imm Allergy/Immunologic: No itchy eyes Jamaal/Lymp Hematologic/Lymphatic: No easy bleeding or easy bruising Exam Const General: cooperative and comfortable Nutritional Appearance: average body habitus and well nourished [facility] Head: normal to inspection Ears: hearing grossly normal bilaterally Nose: external nose normal Face and sinus: normal facial exam Mouth: oral mucosae normal Throat: posterior oropharynx normal Eyes General: appearance normal, both eyes and all related structures Neck Neck: normal visual inspection Chest Chest palpation & inspection: normal inspection of the chest and normal palpation of entire chest wall Resp Effort & Inspection: normal respiratory effort Auscultation: Bilateral: Clear to Auscultation Cardio Palpation: normal PMI Rate: regular rate Rhythm: regular rhythm GI Inspection: normal to inspection Auscultation: normal bowel sounds Percussion: normal to percussion Palpation: no hepatosplenomegaly Skin General: no rashes or lesions noted Neuro General: patient alert Extrem General: normal to inspection Psych Affect: normal affect Quality Reporting Tobacco Screening ([facility] 138) Smoking Status: Never smoker Assessment and Plan Assessment and Plan (1) Esophageal spasm: Status: Chronic Plan: I will give her 2%. Since lidocaine solution plus Maalox twice a day to hopefully relieve her esophageal spasms. (2) Change in bowel habit: Status: Chronic (3) Dumping syndrome: Status: Chronic Plan: She is doing very well on the antidumping diet. We have her eating only low FODMAP foods. That means she is staying away from fermentable sugars, oligosaccharides, disaccharides, Grains and all sweeteners. she knows that if she does not take these foods and daily basis, then she will not have the dumping syndrome. (4) History of fundoplication: Status: Chronic Plan: She did have episodes of nausea and vomiting last month when she vomited some gastric contents after having multiple episodes of coughing from upper laryngeal issues. She is not having any reflux disease at this time. (5) GERD (gastroesophageal reflux disease): Status: Chronic Qualifiers: Esophagitis presence: with esophagitis Esophagitis bleeding: without hemorrhage Qualified Code(s): K21.00 - Gastro-esophageal reflux disease with esophagitis, without bleeding Plan: She is still being maintained on Protonix 40 mg once a day and we will continue that for now. (6) Dysphagia: Status: Inactive Plan: It sounds as if she is having dysphagia without odynophagia secondary to esophageal spasm of the cricopharyngeus. I gave her Flonase 1 spray in each nostril and Zyrtec at night for 1 month. She will also hyoscyamine sublingual to take as needed every 6 hours when she gets the symptoms of upper esophageal dysphagia that I believe is secondary to postnasal drip. (7) Abdominal pain: Status: Acute Plan: We will get a KUB and check CRP and ESR. She will also need a colonoscopy due to her history of polyps in the colon Orders: Orders CRP Today K22.4 - Dyskinesia of esophagus, R19.4 - Change in bowel habit Prothrombin Time w/INR Today D68.2 - Hereditary deficiency of other clotting factors, K22.4 - Dyskinesia of esophagus, R19.4 - Change in bowel habit CBC W/Diff, Automated Today K22.4 - Dyskinesia of esophagus, R19.4 - Change in bowel habit, R42 - Dizziness and giddiness Erythrocyte Sed Rate Today K22.4 - Dyskinesia of esophagus, R19.4 - Change in bowel habit Allergen, Rast Food Profile Today K22.4 - Dyskinesia of esophagus, R19.4 - Change in bowel habit Allergen, Food Profile Today K22.4 - Dyskinesia of esophagus, R19.4 - Change in bowel habit Abdomen Single View Today K22.4 - Dyskinesia of esophagus, R19.4 - Change in bowel habit I have examined the patient and the H&P has been reviewed. There are no clinical changes since date of exam.
--- NOTE | 2023-03-10 07:15 | COLBX_PTH ---
PATIENT: SHANE CHAMBERS LOC: EN U#:[id number] AGE/SX: 73/F ROOM: RE03/10/[address]: Dr. Hao Engle DO : 1950 BED: DIS: 03/10/2023 SPEC #: [id number] RECD: 03/10/23 12:40 STATUS: SANDY LILIANA #: [id number] MEHDI: 03/10/23 07:[address]: Hao Engle DEPT: SURGICAL PATHOLOGY RECD BY: Gina Hameed ENTERED: 03/11/23 09:14 SP TYPE: COLON BX OTHR DR: Dr. Adelina Alvarenga DO Tissues: A - Ascending colon B - Cecum, NOS C - Transverse colon Procedures: Surgery Specimen Level IV HEADER OPERATION: Colonoscopy (MAC) with biopsies PRE-OP DIAGNOSIS: Esophageal spasm TISSUE SUBMITTED: A - Ascending colon, B - Cecal polyp, C - Transverse colon polyp MICROSCOPIC DIAGNOSIS A. Descending colon, biopsy: Fragments of tubular adenoma. B. Cecal polyp, biopsy: Fragments of tubular adenoma. C. Transverse colon polyp, biopsy: Fragments of tubular adenoma. AM:rob 03/12/2023 MICROSCOPIC DESCRIPTION Slides are reviewed. GROSS DESCRIPTION A - Received in fixative is one container labeled with the patient's name and designated ascending colon. The specimen consists of two irregular fragments of light price soft tissue that in aggregate measure 0.7 x 0.5 x 0.1 cm. The specimen is totally submitted in one cassette. B - Received in fixative is one container labeled with the patient's name and designated cecal polyp. The specimen consists of multiple irregular fragments of light price soft tissue that in aggregate measure 0.7 x 0.6 x 0.1 cm. The specimen is totally submitted in one cassette. C - Received in fixative is one container labeled with the patient's name and designated transverse colon polyp. The specimen consists of two irregular fragments of light price soft tissue that in aggregate measure 0.6 x 0.5 x 0.1 cm. The specimen is totally submitted in one cassette. / AM:rob 03/11/2023 TC:5 CPT: 61440 x3
--- NOTE | 2023-03-10 07:48 | OP.CCLET_ITS ---
03/10/2023 Adelina Alvarenga [address] [place] [address] Re : Colonoscopy procedure for Anusha Raymundomirtha Dear Dr. Alvarenga This procedure was performed on Friday, March 10, 2023. My impressions and recommendations are as follows: Impressions : - Diverticulosis in the recto-sigmoid colon and in the sigmoid colon. - Three 1 to 2 mm polyps in the sigmoid colon, in the ascending colon and in the cecum, removed with a cold snare. Resected and retrieved. Recommendations : - Repeat colonoscopy in 3 years for surveillance. - Continue present medications. My findings are described in the full procedure note, which is enclosed. If I can be of further assistance, please feel free to contact me at . Sincerely, Hao Engle, 03/10/2023 7:47:31 AM This report has been signed electronically.
--- NOTE | 2023-03-10 07:48 | OP.COLON_ITS ---
Patient Name: Anusha Vidal Procedure Date: 03/10/2023 7:17 AM Date of : 1950 Age: 73 Procedure: Colonoscopy Indications: High risk colon cancer surveillance: Personal history of colonic polyps Providers: Hao Engle DO Referring MD: Adelina Alvarenga Medicines: Monitored Anesthesia Care Patient Profile: This is a 73 year old female. Refer to note in patient chart for documentation of history and physical. Last Colonoscopy: more than 3 years ago. Complications: No immediate complications. Procedure: Pre-Anesthesia Assessment: - Prior to the procedure, a History and Physical was performed, and patient medications and allergies were reviewed. The risks and benefits of the procedure and the sedation options and risks were discussed with the patient. All questions were answered and informed consent was obtained. Patient identification and proposed procedure were verified by the physician in the pre-procedure area. Mental Status Examination: alert and oriented. Airway Examination: normal oropharyngeal airway and neck mobility. Respiratory Examination: clear to auscultation. CV Examination: normal. Prophylactic Antibiotics: The patient does not require prophylactic antibiotics. Prior Anticoagulants: The patient has taken no anticoagulant or antiplatelet agents. ASA Grade Assessment: II - A patient with mild systemic disease. After reviewing the risks and benefits, the patient was deemed in satisfactory condition to undergo the procedure. The anesthesia plan was to use monitored anesthesia care (MAC). Immediately prior to administration of medications, the patient was re-assessed for adequacy to receive sedatives. The heart rate, respiratory rate, oxygen saturations, blood pressure, adequacy of pulmonary ventilation, and response to care were monitored throughout the procedure. The physical status of the patient was re-assessed after the procedure. After I obtained informed consent, the scope was passed under direct vision. Throughout the procedure, the patient's blood pressure, pulse, and oxygen saturations were monitored continuously. The Colonoscope was introduced through the anus and advanced to the cecum, identified by appendiceal orifice and ileocecal valve. The colonoscopy was performed without difficulty. The patient tolerated the procedure well. The quality of the bowel preparation was adequate. The ileocecal valve, appendiceal orifice, and rectum were photographed. Scope In: 7:28:15 AM Scope Withdrawal Time 0 hours 10 minutes 4 seconds Scope Out: 7:42:13 AM Total Procedure Duration Time 0 hours 13 minutes 58 seconds Findings: The perianal and digital rectal examinations were normal. Multiple small-mouthed diverticula were found in the recto-sigmoid colon and sigmoid colon. Three sessile polyps were found in the sigmoid colon, ascending colon and cecum. The polyps were 1 to 2 mm in size. These polyps were removed with a cold snare. Resection and retrieval were complete. Verification of patient identification for the specimen was done. Estimated blood loss was minimal. Impression: - Diverticulosis in the recto-sigmoid colon and in the sigmoid colon. - Three 1 to 2 mm polyps in the sigmoid colon, in the ascending colon and in the cecum, removed with a cold snare. Resected and retrieved. Recommendation: - Repeat colonoscopy in 3 years for surveillance. - Continue present medications. Procedure Code(s): --- Professional --- 79777, Colonoscopy, flexible; with removal of tumor(s), polyp(s), or other lesion(s) by snare technique CPT copyright 2021 [employer]. All rights reserved. The codes documented in this report are preliminary and upon chaser tar review may be revised to meet current compliance requirements. Hao Engle DO 03/10/2023 7:47:31 AM This report has been signed electronically. Number of Addenda: 0 Note Initiated On: 03/10/2023 7:17 AM
== END 2023-03-10 08:35 | disposition home or self-care (01) ==
LOC: EN 06:08 → AC 06:09
PROVIDERS: PCP Family Medicine; Referring Provider Family Medicine; Visit Provider Internal Medicine Gastroenterology
PROC: 0DJD8ZZ Inspection of Lower Intestinal Tract, Via Natural or Artificial Opening Endoscopic (ICD-10-PCS; CPT 45378; principal; 2023-03-10 07:10)
DX: Z12.11 Encounter for screening for malignant neoplasm of colon (principal); D68.2 Hereditary deficiency of other clotting factors; K57.30 Diverticulosis of large intestine without perforation or abscess without bleeding; Z86.010 Personal history of colon polyps; K22.4 Dyskinesia of esophagus; K21.9 Gastro-esophageal reflux disease without esophagitis; R13.10 Dysphagia, unspecified; D12.4 Benign neoplasm of descending colon; D12.0 Benign neoplasm of cecum; D12.3 Benign neoplasm of transverse colon; I10 Essential (primary) hypertension; Z79.890 Hormone replacement therapy; Z79.01 Long term (current) use of anticoagulants; Z79.899 Other long term (current) drug therapy; I25.10 Atherosclerotic heart disease of native coronary artery without angina pectoris; E78.00 Pure hypercholesterolemia, unspecified; E03.9 Hypothyroidism, unspecified
CPT/HCPCS: 45385; 36416; 85610; 88305; J7120; J2405

== ENCOUNTER 2023-04-02 15:19 | Emergency (ER) | payer MEDICARE, OTHER, SELFPAY ==
[2023-04-02 15:20] VITALS: BP 145/76; PULSE 60; RESP 18; TEMP 35.9; O2SAT 99
--- NOTE | 2023-04-02 15:44 | EDS_ITS ---
HPI <MIRYAM Valle - Last Filed: 04/02/23 16:45> History of Present Illness Chief Complaint: Lower Extremity Injury Narrative Narrative: 73-year-old female got up from her recliner this morning and had left hip pain over the trochanter area. Denies fall or injury. She states it hurts worse with weightbearing but she was able to walk with her 's assistance into an appointment and then came to the ED for evaluation. She denies weakness or paresthesias. She has chronic back issues but this does not feel like her back pain. PFS <MIRYAM Valle - Last Filed: 04/02/23 16:45> [facility] Medical History (Updated 04/02/23 @ 16:[address] Jayjay Arango, ) Abdominal pain Arthritis Atherosclerotic heart disease of [place] coronary artery without angina pectoris Atypical chest pain Back pain Bicuspid aortic valve Blood disorder Cancer Cardiology follow-up encounter Chest pain Chronic back pain DVT (deep venous thrombosis) Dysphagia Dyspnea on exertion Essential (primary) hypertension Factor V deficiency Gastric reflux GERD (gastroesophageal reflux disease) High cholesterol History of deep vein thrombophlebitis of lower extremity History of echocardiogram History of IBS History of irregular heartbeat History of pain when walking History of stress test History of thyroid cancer History of TIA (transient ischemic attack) HTN (hypertension) Hypothyroidism (acquired) Injury of back Loss of consciousness Normal stress echocardiogram Palpitations Pure hypercholesterolemia Shortness of breath on exertion Thyroid disease TIA (transient ischemic attack) Vertigo Wears glasses Home Medications warfarin 3 mg tablet 3 mg PO TUTH BLOOD THINNER 05/04/20 [History Last Taken 08/29/21] cholecalciferol (vitamin D3) 50 mcg (2,000 unit) tablet 50 mcg PO DAILY 10/27/20 [History Last Taken Unknown] tizanidine 4 mg tablet 4 mg PO QHS SPASMS 10/27/20 [History Last Taken Unknown] acetaminophen 500 mg tablet 1,000 mg PO Q6H PRN Pain 07/31/21 [History Last Taken Unknown] warfarin 2 mg tablet 2 mg PO SUMOWEFRSA 07/31/21 [History Last Taken 08/29/21] polyethylene glycol 3350 17 gram/dose oral powder (Miralax) 17 g PO PRN PRN Constipation 08/21/21 [History Last Taken Unknown] multivitamin with minerals-folic acid 200 mcg chewable tablet (Multivitamin Gummies) 2 tab PO DAILY 08/28/21 [History Last Taken 03/10/23] simvastatin 40 mg tablet 40 mg PO QHS CHOLESTEROL #90 tabs 03/25/22 [Rx Last Taken Unknown] amoxicillin 500 mg tablet 500 mg PO .COMPLEX #4 tabs 05/30/22 [Rx Last Taken Unknown] pantoprazole 40 mg tablet,delayed release See Rx Instructions .Route .COMPLEX #90 tabs 11/11/22 [Rx Last Taken 03/10/23] levothyroxine 50 mcg tablet See Rx Instructions PO TUTH 11/20/22 [History Last Taken Unknown] atenolol 25 mg tablet 12.5 mg PO DAILY 03/05/23 [History Last Taken 03/10/23] atenolol 25 mg tablet 25 mg PO QHS Dose was increased. 03/05/23 [History Last Taken Unknown] Allergy/AdvReac Type Severity Reaction Status Date / Time Iodinated Contrast Media Allergy Hives Verified 03/05/23 14:30 [Iodinated Contrast Media - IV Dye] levofloxacin AdvReac abdominal Verified 03/05/23 14:30 pain naproxen [From Naprosyn] AdvReac Nausea Verified 03/05/23 14:30 Family History (Reviewed 12/11/22 @ 15:13 by [place] Arvizu [employer]OADCAST FIELD SUPERVISOR, BROADCAST FIELD SUPERVISOR-C) Father , age 65 CAD (coronary artery disease) Arthritis Myocardial infarction CVA (cerebral vascular accident) Mother Arthritis Hypertension Sister Arthritis Aunt Breast cancer Surgical History History of appendectomy (~08/2021) History of bilateral cataract extraction History of cardiac catheterization History of carpal tunnel release of both wrists History of cholecystectomy History of left heart catheterization (~11/2007) History of repair of hiatal hernia (~08/2021) History of thyroidectomy Hx of left cataract extraction Hx of right cataract extraction Hx of thumb surgery Social History (Reviewed 12/11/22 @ 15:13 by [place] Arvizu [employer]OADCAST FIELD SUPERVISOR, BROADCAST FIELD SUPERVISOR-C) Smoking Status: Never smoker alcohol intake: never substance use type: does not use caffeine: Yes Type: carbonated beverages what type of physical activity do you participate in: none seatbelt use: always do you feel safe at home: Yes ROS <MIRYAM Valle - Last Filed: 04/02/23 16:45> ROS ED ROS Narrative Constitutional: Negative for fever, chills, malaise. Neuro: Negative for motor/sensory dysfunction. Skin: Negative for rash, abscess, or wound. Musc: Positive for hip pain. No trauma. EXAM <MIRYAM Valle - Last Filed: 04/02/23 16:45> Physical Exam Narrative Exam Narrative: CONST: Patient sitting in no acute distress. EYES: Normal inspection. NECK: Normal inspection. RESP: No respiratory distress, CTAB. CVS: Regular rate and rhythm, no murmur, no gallop. ABD: Soft and nontender, no guarding or rebound, nondistended. Back: Normal inspection, no midline tenderness or step-offs. SKIN: Color normal, no rash, warm, dry, intact. EXTREMITIES: Normal appearance, no shortening or rotation. Tender over left greater trochanter and slightly with labral, pelvis stable. 5/5 strength in bilateral hip flexion and DF/PF, normal sensation, 2+ DP pulses. Skin appears normal with no warmth or skin changes. NEURO: Oriented x4. PSYCH: Normal affect. Const Vital Signs: 04/02/23 15:20 Temperature 96.6 F L Temperature Source Temporal Pulse Rate 60 Respiratory Rate 18 Blood Pressure 145/76 H Blood Pressure Mean 99 Pulse Ox 99 Oxygen Delivery Method Room Air <Dr. Jayjay Arango DO - Last Filed: 04/02/23 16:39> Physical Exam Const Vital Signs: 04/02/23 15:20 Temperature 96.6 F L Temperature Source Temporal Pulse Rate 60 Respiratory Rate 18 Blood Pressure 145/76 H Blood Pressure Mean 99 Pulse Ox 99 Oxygen Delivery Method Room Air MDM <MIRYAM Valle - Last Filed: 04/02/23 16:45> MDM MDM Narrative Medical decision making narrative: Patient has atraumatic left hip pain. She is tender over the greater trochanter. No signs of infection. Range of motion and neurovascularly intact. X-ray shows no acute fracture or dislocation. Pain hurts worse with movement so it may be a strain or bursitis. She is comfortable taking Tylenol at home and will follow-up with orthopedics. She was discharged in stable condition. I have personally performed a face to face assessment of the patient and have reviewed the JAMES Note. I performed a substantive portion of the visit including all aspects of the following. My lopez findings include: History is [patient presents with left hip pain that started earlier this morning when she tried to get out of her recliner. Patient had been up and walking around this morning and woke her up and then went to sit back in her recliner. When she tried to get up again she had sudden onset of severe pain and had a hard time bearing weight. Patient able to bear some weight on her leg and was seeing her pipe installer today after a colonoscopy and he advised her that she should have her leg looked at. Patient denies any falls or other injuries.] Exam is [HEENT-PERRLA, EOMI. Cranial nerves II through XII grossly intact. TMs clear. Mucous membranes moist. No adenopathy. Cardiovascular-regular rate and rhythm without murmur or ectopy Lungs-clear to auscultation, chest wall stable without crepitus or subcu emphysema Abdomen-normoactive bowel sounds, soft, nontender, no rebound or rigidity, no peritoneal signs. Extremities-intact ?4, left hip-patient has tenderness palpation over the greater trochanter area. No erythema or warmth noted to the skin. There is no ecchymosis or bruising. She has pain with logrolling and straight leg raising at the hip. Neurovascular intact distally.] Medical Decison Making [patient presents with atraumatic left hip pain when trying to stand. We will obtain x-rays to evaluate for possible fracture.] Patient had no evidence of fracture or dislocation. Clinically without signs of infection. Pain came on with standing therefore suspect possibility of a hip strain or soft tissue injury. She does not anything for pain for home. She will follow-up with [facility] if her pain persists. Other additions or changes: [None] Radiography Diagnostic Testing: Clinical Impression(s) from Imaging Studies Hip/Pelvis X-Ray 04/02/23 15:55 IMPRESSION: No evidence of displaced pelvic or hip fracture. Electronically Signed: Jo Nguyen MD at 16:30 EDT Reading Location ID and State: [id number] / Tel , Service support , <Dr. Jayjay Arango, DO - Last Filed: 04/02/23 16:39> [facility] Narrative Medical decision making narrative: I have personally performed a face to face assessment of the patient and have reviewed the JAMES Note. I performed a substantive portion of the visit including all aspects of the following. My lopez findings include: History is [patient presents with left hip pain that started earlier this morning when she tried to get out of her recliner. Patient had been up and walking around this morning and woke her up and then went to sit back in her recliner. When she tried to get up again she had sudden onset of severe pain and had a hard time bearing weight. Patient able to bear some weight on her leg and was seeing her pipe installer today after a colonoscopy and he advised her that she should have her leg looked at. Patient denies any falls or other injuries.] Exam is [HEENT-PERRLA, EOMI. Cranial nerves II through XII grossly intact. TMs clear. Mucous membranes moist. No adenopathy. Cardiovascular-regular rate and rhythm without murmur or ectopy Lungs-clear to auscultation, chest wall stable without crepitus or subcu emphysema Abdomen-normoactive bowel sounds, soft, nontender, no rebound or rigidity, no peritoneal signs. Extremities-intact ?4, left hip-patient has tenderness palpation over the greater trochanter area. No erythema or warmth noted to the skin. There is no ecchymosis or bruising. She has pain with logrolling and straight leg raising at the hip. Neurovascular intact distally.] Medical Decison Making [patient presents with atraumatic left hip pain when trying to stand. We will obtain x-rays to evaluate for possible fracture.] Patient had no evidence of fracture or dislocation. Clinically without signs of infection. Pain came on with standing therefore suspect possibility of a hip strain or soft tissue injury. She does not anything for pain for home. She will follow-up with [facility] if her pain persists. Other additions or changes: [None] Radiography Diagnostic Testing: Clinical Impression(s) from Imaging Studies Hip/Pelvis X-Ray 04/02/23 15:55 IMPRESSION: No evidence of displaced pelvic or hip fracture. Electronically Signed: Jo Nguyen MD at 16:30 EDT Reading Location ID and State: [id number] / Tel , Service support , Three-view x-rays of left hip and pelvis obtained interpreted by myself as no evidence of fracture dislocation. Radiology in agreement. Discharge Plan Triage Chief Complaint: Lower Extremity Injury ED Midlevel Provider: Adelina Galvan ED Provider: Jayjay Arango Dx/Rx/DC Orders Clinical Impression: Acute hip pain Instructions: ED Hip Strain, ED Pain, Acute, Uncertain Cause Prescriptions: No Action cholecalciferol (vitamin D3) 50 mcg (2,000 unit) tablet 50 mcg PO DAILY polyethylene glycol 3350 [Miralax] 17 gram/dose powder 17 g PO PRN PRN (Reason: Constipation) tizanidine 4 mg tablet 4 mg PO QHS warfarin 3 MG tablet 3 mg PO TUTH acetaminophen 500 mg Tablet 1,000 mg PO Q6H PRN (Reason: Pain) warfarin 2 mg tablet 2 mg PO SUMOWEFRSA Patient Comments: LAST DOSE 08/29/21 PRIOR TO SURGERY levothyroxine 50 mcg tablet See Rx Instructions PO TUTH Rx Instructions: 75mcg M///Sun, 50mcg T//Fri Multivitamin Gummies 200 mcg Tablet,Chewable 2 tab PO DAILY atenolol 25 mg tablet 12.5 mg PO DAILY atenolol 25 mg tablet 25 mg PO QHS Rx Instructions: 25 mg PO one half tab in the am and one tab in the pm; simvastatin 40 mg tablet 40 mg PO QHS Qty: 90 3RF amoxicillin 500 mg tablet 500 mg PO .COMPLEX Qty: 4 2RF Rx Instructions: 500 mg PO 4 tablets by mouth 1 hr prior to procedure pantoprazole 40 mg tablet,delayed release (DR/EC) See Rx Instructions .ROUTE .COMPLEX Qty: 90 3RF Dose Instruction: Take 1 tablet by mouth once daily Rx Instructions: Take 1 tablet by mouth once daily Primary Care Provider: Adelina Alvarenga Referrals: Adelina Alvarenga DO [Primary Care Provider] - Danny Cruz DO [Med Staff - Active Staff] - 3-5 Days Activity Restrictions/Additional Instructions: Take Tylenol and use ice, if not improving please follow-up with your orthopedic doctor. Disposition Disposition: Home, Self Care
[2023-04-02] MEDS: Ondansetron ODT 4 MG Tablet PO (15:49)
[2023-04-02] MEDS: HYDROcodone Bitartrate/Apap 5/325 Tablet PO (15:49)
--- NOTE | 2023-04-02 15:55 | RAD_ITS ---
INDICATION: pain EXAMINATION/TECHNIQUE: X-RAY - XR Hip Unilateral with Pelvis when performed; 2-3 Views COMPARISON: 01/29/2022. FINDINGS: PELVIC BONES: No displaced fracture, destructive or sclerotic lesions. Note that overlapping bowel shadows may however obscure fine detail. Sacroiliac joints are unremarkable. No widening of the pubic symphysis. HIPS: The articular structures are unremarkable. No displaced fracture seen in this frontal view. SOFT TISSUES: No soft tissue swelling or gas. RAD/HIP, UNI W/ Pelvis 2-3 Views IMPRESSION: No evidence of displaced pelvic or hip fracture. Electronically Signed: Jo Nguyen MD at 16:30 EDT Reading Location ID and State: [id number] / Tel , Service support ,
== END 2023-04-02 16:56 | disposition home or self-care (01) ==
PROVIDERS: Emergency Provider Emergency Medicine; PCP Family Medicine; Visit Provider Emergency Medicine
DX: M25.552 Pain in left hip (principal); I25.10 Atherosclerotic heart disease of native coronary artery without angina pectoris; E78.00 Pure hypercholesterolemia, unspecified; I10 Essential (primary) hypertension; Z86.73 Personal history of transient ischemic attack (TIA), and cerebral infarction without residual deficits; Z79.01 Long term (current) use of anticoagulants; Z86.718 Personal history of other venous thrombosis and embolism; Z85.850 Personal history of malignant neoplasm of thyroid; K21.9 Gastro-esophageal reflux disease without esophagitis; E03.9 Hypothyroidism, unspecified; Z90.49 Acquired absence of other specified parts of digestive tract; Z98.41 Cataract extraction status, right eye; Z98.42 Cataract extraction status, left eye
CPT/HCPCS: 73502; 99282

== ENCOUNTER → 2023-04-07 | Outpatient (CLI) | payer MEDICARE, OTHER, SELFPAY ==
--- NOTE | 2023-04-07 08:49 | EKG12_ITS ---
Test Reason : PRE OP Blood Pressure : / mmHG Vent. Rate : 052 BPM Atrial Rate : 052 BPM P-R Int : 126 ms QRS Dur : 072 ms QT Int : 440 ms P-R-T Axes : 056 007 018 degrees QTc Int : 409 ms Sinus bradycardia Low voltage QRS Borderline ECG Confirmed by MARGARET ROSARIO, FRANCOIS ([id number]), assistant editor MANSI VEGA ([id number]) on 04/14/2023 7:29:30 AM Referred By: Mario Zavala Confirmed By:FELIX ROBLES MD
--- NOTE | 2023-04-07 08:50 | RAD_ITS ---
STUDY: X-RAY CHEST REASON FOR EXAM: Female, 73 years old. Preoperative evaluation. TECHNIQUE: Frontal and lateral views of the chest. COMPARISON: May 04, 2020. FINDINGS: The lungs are clear and expanded. There is no demonstrated pleural abnormality. Cardiomegaly. Normal mediastinum and dolores. Normal visualized pulmonary arteries. Normal visualized aortic arch and descending thoracic aorta. Diffuse thoracic osteopenia with anterior wedge compression deformity of T12 status post kyphoplasty with marked kyphotic angulation at this level. Normal visualized ribs, clavicles, and shoulders. No abnormality of the visualized soft tissue structures of the upper abdomen. RAD/Chest PA and Lateral IMPRESSION: Cardiomegaly with anterior wedge compression deformity of T12 with kyphotic angulation. No acute or active cardiopulmonary disease. Electronically Signed: Jt Nam MD at 10:24 EST ,
[2023-04-07 09:55] LABS: Absolute Lymphocyte Count 1.38 X10^3/uL (0.83-4.51); Absolute Neutrophil Count 2.4 X10^3/uL (2.0-7.7); Basophil# 0.05 X10^3/uL; Basophil% 1.1 % (0-1); Eosinophil# 0.12 X10^3/uL; Eosinophils% 2.7 % (0-5); Hematocrit 43.5 % (37-47); Hemoglobin 13.5 g/dL (12.0-15.0); Lymphocyte # 1.38 X10^3/ul (0.83-4.51); Lymphocyte % 31.4 % (19-41); Mean Corpuscular Hgb 31.2 pg (27.0-32.0); Mean Corpuscular Volume 100.5 fL (81-99); Mean Platelet Vol. 9.8 fl (6.2-12.0); Monocyte# 0.43 X10^3/uL; Monocyte% 9.8 % (0-10); NRBC Flagged by Analyzer 0 % (0-5); Neutrophil % 54.5 % (47-70); Platelet Count 240 K/mm3 (150-450); RBC Distribution Width CV 13.8 % (11.6-14.6); RBC Distribution Width SD 50.4 fl (35.1-43.9); Red Blood Count 4.33 M/mm3 (4.2-5.4); White Blood Count 4.4 K/mm3 (4.4-11.0)
[2023-04-07 09:58] LABS: International Normalized Ratio 2.5; Prothrombin Time (Protime)PT. 27.6 SECONDS (11.7-14.9)
[2023-04-07 10:00] LABS: Partial Thromboplast Time 35.9 Seconds (24.1-36.2)
[2023-04-07 10:35] LABS: Anion Gap 4 (5-15); BUN 14 mg/dL (7-18); BUN/Creat Ratio 17.5 RATIO (10-20); Calcium,Total 8.7 mg/dL (8.5-10.1); Chloride 111 mmol/L (98-107); EST Glomerular Filtration Rate 75 mL/min (>60); Est Glom Filt Rate - Afr Amer 91 mL/min (>60); Glucose 92 mg/dL (74-106); Potassium 3.7 mmol/L (3.5-5.1); Sodium Level 142 mmol/L (136-145)
== END | disposition home or self-care (01) ==
PROVIDERS: PCP Family Medicine; Referring Provider Orthopaedic Surgery; Visit Provider Orthopaedic Surgery
DX: Z01.818 Encounter for other preprocedural examination (principal); D68.2 Hereditary deficiency of other clotting factors; Z01.812 Encounter for preprocedural laboratory examination; Z01.810 Encounter for preprocedural cardiovascular examination; Z01.811 Encounter for preprocedural respiratory examination
CPT/HCPCS: 36415; 71046; 80048; 85025; 85610; 85730; 93005

== ENCOUNTER → 2023-04-28 | Outpatient (CLI) | payer MEDICARE, OTHER, SELFPAY ==
[2023-04-28 08:33] LABS: Prothrombin Time (Protime)PT. 13.4 SECONDS (11.7-14.9)
[2023-04-28 08:34] LABS: Partial Thromboplast Time 24.5 Seconds (24.1-36.2)
== END | disposition home or self-care (01) ==
PROVIDERS: PCP Family Medicine; Referring Provider Family Medicine; Visit Provider Family Medicine
DX: D68.2 Hereditary deficiency of other clotting factors (principal); Z79.01 Long term (current) use of anticoagulants
CPT/HCPCS: 36415; 85610; 85730

== ENCOUNTER 2023-06-11 08:23 | Outpatient (RCR) | payer MEDICARE, OTHER, SELFPAY ==
--- OUTSIDE RECORDS SUMMARY | 2023-06-11 08:48 | XMS RPT_ITS | CCD ---
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 Name Role Phone LISA Casper, Cherry Carpio Unavailable Unavailkelton Harrington RN, Erika Perkins Unavailable Unavailable Cinthia Arteaga Unavailable Unavailable Yina Hayes Unavailable Unavailable LISA Casper, Cherry Carpio Unavailable Unavailkelton Harrington RN, Erika Perkins Unavailable Unavailable LAMINE Brandt, Martina Carpio Unavailable Yina Hayes Unavailable Unavailable CHRISTINA LI Admitting Unavailable CHRISTINA LI Attending Unavailable ADELINA ALVARENGA D.O Referring Unavailable CHRISTINA LI Primary Care Unavailable ADELINA ALVARENGA D.O Consulting Unavailable PROVIDER, UNKNOWN Consulting Unavailable Cinthia Arteaga Unavailable Unavailable LISA Casper, Cherry Carpio Unavailable UnavailDR ADELINA Kinsey DO Primary Care Physician DR ADELINA ALVARENGA DO Primary Care Unavailable EMMANUEL MENSAH DO Attending Unavailable EMMANUEL MENSAH DO Referring Unavailable DR ADELINA ALVARENGA DO Primary Care Unavailable STUART GERONIMO Consulting STUART Brice Attending EMMANUEL Silav DO Admitting Unavailable Allergies Allergy Classification Reported Allergen(s) Allergy Type Date of Onset Reaction(s) Facility (10 sources) iodine drug allergy 1 [facility] Work Phone: [phone] (10 sources) levoFLOXacin drug allergy 6 Abdominal pain [facility] Work Phone: [phone] (10 sources) naproxen drug allergy 1 [facility] Work Phone: (1 source) Contrast media; Translations: [iodinated radiocontrast agents] Drug allergy WELTS ON FACE [facility] (1 source) levoFLOXacin; Translations: [levofloxacin] Drug Allergy ABDOMINAL PAIN [facility] (1 source) Naproxen; Translations: [naproxen] Drug Allergy STOMACH PAIN [facility] Medications Current Medications Medication Drug Class(es) Dates Sig (Normalized) Sig (Original) atenolol 25 mg oral tablet (20 sources) beta-Adrenergic Iván Start: 05-06-2023 atenolol 25 mg oral tablet Dose : 25 mg = 1 tab(s), Oral, BID, ONE TAB IN EVENING 1/2 TAB IN MORNING, # 180 tab(s), 0 Refill(s) Start Date: 05/06/23 Status: Ordered Completed/Discontinued Medications Medication Drug Class(es) Dates Sig (Normalized) Sig (Original) acetaminophen 325 mg / HYDROcodone bitartrate 5 mg oral tablet (10 sources) Opioid Agonist Start: 10-18-2014 take 1 tablet by mouth three times daily as needed HYDROCODONE-ACETA MINOPHEN 5-325 MG TABS One tablet by mouth three times daily as needed HYDROCODONE-ACETA MINOPHEN [id number] Jacinto Laureano MD amoxicillin 500 mg oral tablet (2 sources) Penicillin-class Antibacterial Start: 04-04-2017 take 4 tablets by mouth every hour AMOXICILLIN 500 MG TABS 4 tablets by mouth 1 hr prior to procedure AMOXICILLIN [id number] Martina Brandt PA-C aspirin 81 mg oral tablet (20 sources) Platelet Aggregation Inhibitor, Nonsteroidal Anti-inflammatory Drug Start: 06-10-2011 End: 10-18-2014 take 1 tablet by mouth once daily ASPIRIN 81 MG TABS One tablet by mouth daily ASPIRIN [id number] Melvin Flowers MD Problems Active Problems Problem Classification Problem Date Documented Date Episodic/Chronic Acute cerebrovascular disease (10 sources) Cerebrovascular accident; Translations: [Cerebral infarction, unspecified] Onset: 11-12-2010 11-12-2010 Chronic Cardiac and circulatory congenital anomalies (10 sources) Bicuspid aortic valve; Translations: [Congenital insufficiency of aortic valve] Onset: 11-12-2010 10-04-2015 Chronic Coagulation and hemorrhagic disorders (11 sources) Factor V deficiency; Translations: [Hereditary deficiency of other clotting factors] Onset: 09-04-2015 09-04-2015 Chronic Coronary atherosclerosis and other heart disease (20 sources) Coronary arteriosclerosis; Translations: [Atherosclerotic heart disease of [place] coronary artery without angina pectoris] Onset: 11-12-2010 Resolved: 12-09-2011 11-12-2010 Chronic Disorders of lipid metabolism (10 sources) Hyperlipidemia; Translations: [Hyperlipidemia, unspecified] Onset: 11-12-2010 11-12-2010 Chronic Essential hypertension (11 sources) Hypertensive disorder; Translations: [Essential (primary) hypertension] Onset: 11-12-2010 11-12-2010 Chronic External cause codes: Cut/suarez (1 source) Other foreign body or object entering through skin, initial encounter; Translations: [Other foreign body or object entering through skin, initial encounter] Onset: 12-01-2018 External cause codes: Unspecified (1 source) Activity, gardening and landscaping; Translations: [Activity, gardening and landscaping] Onset: 12-01-2018 Heart valve disorders (10 sources) Aortic valve disorder; Translations: [Other nonrheumatic aortic valve disorders] Onset: 11-12-2010 11-12-2010 Chronic Open wounds of extremities (3 sources) Laceration without foreign body of left middle finger without damage to nail, initial encounter; Translations: [Laceration without foreign body of left middle finger without damage to nail, initial encounter] Onset: 12-01-2018 Episodic Other aftercare (1 source) care home (current) use of anticoagulants; Translations: [care home (current) use of anticoagulants] Onset: 12-01-2018 Episodic Other nutritional; endocrine; and metabolic disorders (10 sources) Body mass index (BMI) 32.0-32.9, adult; Translations: [Body mass index (BMI) 32.0-32.9, adult] Onset: 10-21-2013 10-21-2013 Chronic Pulmonary heart disease (1 source) Personal history of pulmonary embolism; Translations: [Personal history of pulmonary embolism] Onset: 12-01-2018 Episodic Thyroid disorders (10 sources) Hypothyroidism; Translations: [Hypothyroidism, unspecified] Onset: 09-04-2015 09-13-2015 Chronic Unclassified (7 sources) Therapeutic drug monitoring assay ; Translations: [Encounter for therapeutic drug level monitoring] Onset: 09-04-2015 09-04-2015 Unclassified (12 sources) Long-term drug therapy; Translations: [Other buttermaker continuous churn (current) drug therapy] Onset: 11-12-2010 Resolved: 05-08-2016 11-12-2010 Past or Other Problems Problem Classification Problem Date Documented Da te Episodic/Chronic Cardiac dysrhythmias (10 sources) Palpitations; Translations: [Palpitations] Onset: 11-12-2010 11-12-2010 Episodic Conditions associated with dizziness or vertigo (20 sources) Dizziness and giddiness; Translations: [Dizziness and giddiness] Onset: 11-12-2010 Resolved: 05-08-2016 11-12-2010 Episodic Crushing injury or internal injury (10 sources) Injury to other specified blood vessels of upper extremity; Translations: [Injury to other specified blood vessels of upper extremity] Onset: 11-12-2010 11-12-2010 Episodic Nonspecific chest pain (20 sources) Precordial pain; Translations: [Precordial pain] Onset: 11-12-2010 Resolved: 10-04-2015 10-04-2015 Episodic Other aftercare (18 sources) Other snf (current) drug therapy; Translations: [Other snf (current) drug therapy] Onset: 11-12-2010 Resolved: 05-08-2016 11-12-2010 Episodic Phlebitis; thrombophlebitis and thromboembolism (10 sources) Deep venous thrombosis; Translations: [Acute embolism and thrombosis of unspecified vein] Onset: 09-28-2013 09-28-2013 Episodic Unclassified (14 sources) Preoperative cardiovascular examination ; Translations: [Encounter for preprocedural cardiovascular examination] Onset: 10-20-2013 Resolved: 10-04-2015 10-20-2013 Results Test Name Value Interpretation Reference Range Facil ity Vital Signs Date Time Vital Sign Value Performing Clinician Luann villa 05-06-2023 13:12-0500 Blood Pressure Cuff Size EMMANUEL MENSAH DO [facility] 05-06-2023 13:12-0500 Blood Pressure Location EMMANUEL MENSAH DO [facility] 05-06-2023 13:12-0500 Blood Pressure Method EMMANEUL MENSAH DO [facility] 05-06-2023 13:12-0500 Body height 147.3 cm EMMANUEL MENSAH DO [facility] 05-06-2023 13:12-0500 Body weight 57.9 kg EMMANUEL MENSAH DO [facility] 05-06-2023 13:12-0500 Body weight 26.69 kg/m2 EMMANUEL MENSAH DO [facility] 05-06-2023 13:12-0500 Diastolic Blood Pressure Non-Invasive 70 mm[Hg] EMMANUEL MENSAH DO [facility] 05-06-2023 13:12-0500 Heart rate 63 /min EMMANUEL MENSAH DO [facility] 05-06-2023 13:12-0500 Systolic Blood Pressure Non-Invasive 132 mm[Hg] EMMANUEL MENSAH DO [facility] 11-05-2016 15:10-0400 BMI (Body Mass Index) 27.67 kg/m2 [facility] Work Phone: 11-05-2016 15:10-0400 Body weight 62.14 kg [facility] Work Phone: 11-05-2016 15:10-0400 Height 149.86 cm [facility] Work Phone: 11-05-2016 15:10-0400 Weight 62.14 kg [facility] Work Phone: 05-09-2016 14:34-0500 BMI (Body Mass Index) 27.67 kg/m2 Cherry Casper RN [facility] Work Phone: 05-09-2016 14:34-0500 Body weight 62.14 kg LISA [facility] Work Phone: 05-09-2016 14:34-0500 BP Diastolic 62 mm[Hg] LISA [facility] Work Phone: 05-09-2016 14:34-0500 BP Systolic 106 mm[Hg] LISA [facility] Work Phone: 05-09-2016 14:34-0500 BSA (Body Surface Area) 1.57 m2 LISA [facility] Work Phone: 05-09-2016 14:34-0500 Height 149.86 cm LISA [facility] Work Phone: 05-09-2016 14:34-0500 Pulse (Heart Rate) 60 /min [facility]ISA [facility] Work Phone: 05-09-2016 14:34-0500 Respiratory Rate 18 /min [facility] Work Phone: 05-09-2016 14:34-0500 Weight 62.14 kg Harumi DeFinis [facility] Work Phone: 09-04-2015 10:00-0400 Body Temperature 97.7 [degF] [facility] Work Phone: 09-04-2015 10:00-0400 Pulse Oximetry 98 % LISA [facility] Work Phone: 10-21-2013 14:05-0400 Body weight 73.55 kg LISA [facility] Work Phone: 10-21-2013 14:05-0400 Height 149.86 cm LISA [facility] Work Phone: 10-21-2013 14:05-0400 Weight 73.55 kg Harumi DeFinis [facility] Work Phone: 12-09-2011 09:57-0400 Heart rate 58 /min Cherry Casper RN [facility] Work Phone: 12-09-2011 09:57-0400 Heart rate 419 ms Cherry Casper RN [facility] Work Phone: Encounters Encounter Date Encounter Type Care Provider Facility Start: 05-14-2023 End: 05-15-2023 ambulatory EMMANUEL MENSAH DO Facility:[facility] Start: 05-06-2023 End: 05-07-[address] ADELINA ALVARENGA DO Facility:[facility] Start: 05-06-2023 End: 05-06-2023 Admission to establishment EMMANUEL MENSAH DO [facility] Start: 12-01-2018 End: 12-01-2018 Emergency department patient visit CHRISTINA Garcia JEN [facility] Procedures Date Procedure Procedure Detail Performing Clinician Start: 05-20-2017 End: 05-21-2017 *Hepatic Function Panel Jacinto Laureano MD Work Phone: Start: 05-20-2017 End: 05-21-2017 Lipid panel [AGGREGATE] Jacinto Laureano MD Work Phone: Start: 11-11-2016 End: 11-18-2016 *Hepatic Function Panel Jacinto Laureano MD Work Phone: Start: 11-11-2016 End: 11-18-2016 Lipid 1996 panel - Serum or Plasma Jacitno Laureano MD Work Phone: Start: 11-11-2016 End: 11-18-2016 *Hepatic Function Panel Jacinto Laureano MD Work Phone: Start: 11-11-2016 End: 11-18-2016 Lipid panel [AGGREGATE] Jacinto Laureano MD Work Phone: Start: 11-05-2016 End: 11-05-2016 Documentation of current medications Cinthia Arteaga Start: 11-05-2016 End: 11-05-2016 CLAUDIA Laureano MD Work Phone: Start: 11-05-2016 End: 12-10-2016 Echocardiography Jacinto Laureano MD Work Phone: Start: 11-05-2016 End: 11-05-2016 Follow Up Appt 6 months Jacinto Laureano MD Work Phone: Start: 11-05-2016 End: 12-30-2016 Stress Echocardiogram (treadmill) Jacinto Laureano MD Work Phone: Start: 11-05-2016 End: 11-05-2016 CLAUDIA Laureano MD Work Phone: Start: 11-05-2016 End: 12-10-2016 Echocardiography Jacinto Laureano MD Work Phone: Start: 11-05-2016 End: 11-05-2016 Follow Up Appt 6 months Jacinto Laureano MD Work Phone: Start: 11-05-2016 End: 12-30-2016 Stress Echocardiogram (treadmill) Jacinto Laureano MD Work Phone: Start: 05-09-2016 End: 05-09-2016 Documentation of current medications Cherry Casper RN Start: 05-09-2016 End: 05-13-2016 *Hepatic Function Panel Jacinto Laureano MD Work Phone: Start: 05-09-2016 End: 05-09-2016 CLAUDIA Laureano MD Work Phone: Start: 05-09-2016 End: 05-09-2016 Follow Up Appt 6 months Jacinto Laureano MD Work Phone: Start: 05-09-2016 End: 05-13-2016 Lipid 1996 panel - Serum or Plasma Jacinto Laureano MD Work Phone: Start: 05-09-2016 End: 05-13-2016 *Hepatic Function Panel Jacinto Laureano MD Work Phone: Start: 05-09-2016 End: 05-09-2016 CLAUDIA Laureano MD Work Phone: Start: 05-09-2016 End: 05-09-2016 Follow Up Appt 6 months Jacinto Laureano MD Work Phone: Start: 05-09-2016 End: 05-13-2016 Lipid panel [AGGREGATE] Jacinto Laureano MD Work Phone: Start: 10-10-2015 End: 10-10-2015 LISAN Jacinto Laureano MD Work Phone: Start: 10-10-2015 End: 10-26-2015 Echocardiography Jacinto Laureano MD Work Phone: Start: 10-10-2015 End: 10-10-2015 Follow Up Appt 6 months Jacinto Laureano MD Work Phone: Start: 10-10-2015 End: 11-15-2015 Stress Echocardiogram (treadmill) Jacinto Laureano MD Work Phone: Start: 10-10-2015 End: 10-10-2015 LISAN Jacinto Laureano MD Work Phone: Start: 10-10-2015 End: 10-26-2015 Echocardiography Jacinto Laureano MD Work Phone: Start: 10-10-2015 End: 10-10-2015 Follow Up Appt 6 months Jacinto Laureano MD Work Phone: Start: 10-10-2015 End: 11-15-2015 Stress Echocardiogram (treadmill) Jacinto Laureano MD Work Phone: Start: 09-04-2015 End: 09-08-2015 INR in Platelet poor plasma by Coagulation assay Adelina Alvarenga DO Work Phone: Start: 09-04-2015 End: 09-08-2015 Coagulation factor induced.INR assay in platelet poor plasma Adelina Alvarenga DO Work Phone: Start: 09-04-2015 Therapeutic drug monitoring assay Encounter for therapeutic drug monitoring Cherry Casper RN Start: 10-18-2014 End: 10-18-2014 CLAUDIA Laureano MD Work Phone: Start: 10-18-2014 End: 10-18-2014 Follow Up Appt 1 year Shirin Brown Work Phone: Start: 10-18-2014 End: 10-18-2014 CLAUDIA Laureano MD Work Phone: Start: 10-18-2014 End: 10-18-2014 Follow Up Appt 1 year Shirin Brown Work Phone: Start: 10-21-2013 End: 10-21-2013 CLAUDIA Laureano MD Work Phone: Start: 10-21-2013 End: 10-21-2013 Follow Up Appt 1 year Shirin Brown Work Phone: Start: 10-21-2013 End: 10-21-2013 CLAUDIA Laureano MD Work Phone: Start: 10-21-2013 End: 10-21-2013 Follow Up Appt 1 year Shirin Brown Work Phone: Start: 10-20-2013 End: 10-04-2015 Preoperative cardiovascular examination PRE-OPERATIVE CARDIOVASCULAR EXAMINATION Chrery Casper RN Start: 01-31-2013 End: 2013 *Hepatic Function Panel Melvin Flowers MD Start: 01-31-2013 End: 2013 Lipid 1996 panel - Serum or Plasma Melvin Flowers MD Start: 01-31-2013 End: 2013 *Hepatic Function Panel Melvin Flowers MD Start: 01-31-2013 End: 2013 Lipid panel [AGGREGATE] Melvin Flowers MD Start: 01-11-2013 End: 01-11-2013 ANTIONETTE Wilson MD Start: 01-11-2013 End: 2013 Donato Wilson MD Start: 01-11-2013 End: 01-11-2013 Follow Up Appt 1 year Omar Wilson MD Start: 01-11-2013 End: 01-11-2013 SHOP HAND Omar Wilson MD Start: 01-11-2013 End: 2013 Echocardiography Omar Wilson MD Start: 01-11-2013 End: 01-11-2013 Follow Up Appt 1 year Omar Wilson MD Start: 06-03-2012 End: 08-27-2012 *Hepatic Function Panel Melvin Flowers MD Start: 06-03-2012 End: 08-27-2012 Lipid 1996 panel - Serum or Plasma Melvin Flowers MD Start: 06-03-2012 End: 08-27-2012 *Hepatic Function Panel Melvin Flowers MD Start: 06-03-2012 End: 08-27-2012 Lipid panel [AGGREGATE] Melvin Flowers MD Start: 12-09-2011 End: 12-31-2011 Echocardiography Melvin Flowers MD Start: 12-09-2011 End: 12-09-2011 Follow Up Appt 1 year Melvin Flowers MD Start: 12-09-2011 End: 12-31-2011 Echocardiography Melvin Flowers MD Start: 12-09-2011 End: 12-09-2011 Follow Up Appt 1 year Melvin Flowers MD Start: 07-17-2011 End: 07-28-2011 *Hepatic Function Panel Melvin Flowers MD Start: 07-17-2011 End: 07-28-2011 Lipid 1996 panel - Serum or Plasma Melvin Flowers MD Start: 07-17-2011 End: 07-28-2011 *Hepatic Function Panel Melvin Flowers MD Start: 07-17-2011 End: 07-28-2011 Lipid panel [AGGREGATE] Melvin Flowers MD Start: 07-10-2011 End: 07-28-2011 *Hepatic Function Panel Melvin Flowers MD Start: 07-10-2011 End: 07-28-2011 Lipid 1996 panel - Serum or Plasma Melvin Flowers MD Start: 07-10-2011 End: 07-28-2011 *Hepatic Function Panel Melvin Flowers MD Start: 07-10-2011 End: 07-28-2011 Lipid panel [AGGREGATE] Melvin Flowers MD Start: 06-10-2011 End: 06-10-2011 Follow Up Appt 6 months Melvin Flowers MD Start: 06-10-2011 End: 06-10-2011 Follow Up Appt 6 months Melvin Flowers MD Carpal tunnel syndro me (disorder) EMMANUEL MENSAH DO Plan of Treatment Date Care Activity Detail Author Start: 06-16-2017 End: 06-16-2017 Appointment Appointment [facility] Work Phone: Start: 05-20-2017 End: 11-20-2016 *Hepatic Function Panel *Hepatic Function Panel [facility] Work Phone: Start: 05-20-2017 End: 11-20-2016 Lipid panel [AGGREGATE] *Lipid Profile CC PCP [facility] Work Phone: Start: 05-20-2017 End: 05-21-2017 *Hepatic Function Panel *Hepatic Function Panel [facility] [employer] Work Phone: Start: 05-20-2017 End: 05-21-2017 Lipid panel [AGGREGATE] *Lipid Profile CC PCP [facility] Work Phone: Start: 11-11-2016 End: 11-18-2016 *Hepatic Function Panel *Hepatic Function Panel [facility] [employer] Work Phone: Start: 11-11-2016 End: 11-18-2016 Lipid panel [AGGREGATE] *Lipid Profile CC PCP [facility] Work Phone: Start: 11-11-2016 End: 11-18-2016 *Hepatic Function Panel *Hepatic Function Panel [facility] Work Phone: Start: 11-11-2016 End: 11-18-2016 Lipid panel [AGGREGATE] *Lipid Profile CC PCP [facility] Work Phone: Start: 11-05-2016 End: 11-05-2016 Appointment Appointment [facility] [employer] Work Phone: Start: 11-05-2016 End: 11-05-2016 CLAUDIA TAYLOR [facility] [employer] Work Phone: Start: 11-05-2016 End: 11-05-2016 Echocardiography Echocardiogram (complete) [facility] [employer] Work Phone: Start: 11-05-2016 End: 11-05-2016 Follow Up Appt 6 months Follow Up Appt 6 months [facility] [employer] Work Phone: Start: 11-05-2016 End: 11-05-2016 Stress Echocardiogram (treadmill) Stress Echocardiogram (treadmill) [facility] Work Phone: Start: 11-05-2016 End: 11-05-2016 CLAUDIA TAYLOR [facility] Work Phone: Start: 11-05-2016 End: 11-06-2016 Echocardiography Echocardiogram (complete) [facility] Work Phone: Start: 11-05-2016 End: 11-05-2016 Follow Up Appt 6 months Follow Up Appt 6 months [facility] Work Phone: Start: 11-05-2016 End: 11-06-2016 Stress Echocardiogram (treadmill) Stress Echocardiogram (treadmill) [facility] Work Phone: Start: 05-09-2016 End: 05-13-2016 *Hepatic Function Panel *Hepatic Function Panel [facility] Work Phone: Start: 05-09-2016 End: 05-09-2016 DJN DJN [facility] Work Phone: Start: 05-09-2016 End: 05-09-2016 Follow Up Appt 6 months Follow Up Appt 6 months [facility] Work Phone: Start: 05-09-2016 End: 05-13-2016 Lipid panel [AGGREGATE] *Lipid Profile CC PCP [facility] Work Phone: Start: 05-09-2016 End: 05-13-2016 *Hepatic Function Panel *Hepatic Function Panel [facility] Work Phone: Start: 05-09-2016 End: 05-09-2016 CLAUDIA DJN [facility] Work Phone: Start: 05-09-2016 End: 05-09-2016 Follow Up Appt 6 months Follow Up Appt 6 months [facility] Work Phone: Start: 05-09-2016 End: 05-13-2016 Lipid panel [AGGREGATE] *Lipid Profile CC PCP [facility] Work Phone: Start: 10-10-2015 End: 10-10-2015 CLAUDIA LISAN [facility] Work Phone: Start: 10-10-2015 End: 10-10-2015 Echocardiography Echocardiogram (complete) [facility] Work Phone: Start: 10-10-2015 End: 10-10-2015 Follow Up Appt 6 months Follow Up Appt 6 months [facility] Work Phone: Start: 10-10-2015 End: 10-10-2015 Stress Echocardiogram (treadmill) Stress Echocardiogram (treadmill) [facility] Work Phone: Start: 10-10-2015 End: 10-10-2015 CLAUDIA TAYLOR [facility] Work Phone: Start: 10-10-2015 End: 10-10-2015 Echocardiography Echocardiogram (complete) [facility] [employer] Phone: Start: 10-10-2015 End: 10-10-2015 Follow Up Appt 6 months Follow Up Appt 6 months [facility] [employer] Work Phone: Start: 10-10-2015 End: 10-10-2015 Stress Echocardiogram (treadmill) Stress Echocardiogram (treadmill) [facility] [employer] Work Phone: Start: 09-04-2015 End: 09-08-2015 INR Coag RelTime (PPP) *PT/INR - Standing Order [facility] Work Phone: Start: 09-04-2015 End: 09-08-2015 Coagulation factor induced.INR assay in platelet poor plasma *PT/INR - Standing Order [facility] [employer] Work Phone: Start: 10-18-2014 End: 10-18-2014 CLAUDIA CLAUDIA [facility] [employer] Work Phone: Start: 10-18-2014 End: 10-18-2014 Follow Up Appt 1 year Follow Up Appt 1 year [facility] [employer] Work Phone: Start: 10-18-2014 End: 10-18-2014 CLAUDIA CLAUDIA [facility] [employer] Work Phone: Start: 10-18-2014 End: 10-18-2014 Follow Up Appt 1 year Follow Up Appt 1 year [facility] [employer] Work Phone: Start: 10-21-2013 End: 10-21-2013 CLAUDIA [facility]IA [facility] [employer] Work Phone: Start: 10-21-2013 End: 10-21-2013 Follow Up Appt 1 year Follow Up Appt 1 year [facility] Work Phone: Start: 10-21-2013 End: 10-21-2013 CLAUDIA CLAUDIA [facility] [employer] Work Phone: Start: 10-21-2013 End: 10-21-2013 Follow Up Appt 1 year Follow Up Appt 1 year [facility] Work Phone: Start: 01-31-2013 End: 2013 *Hepatic Function Panel *Hepatic Function Panel [facility] Work Phone: Start: 01-31-2013 End: 2013 Lipid panel [AGGREGATE] *Lipid Profile [facility] Work Phone: Start: 01-31-2013 End: 2013 *Hepatic Function Panel *Hepatic Function Panel [facility] Work Phone: Start: 01-31-2013 End: 2013 Lipid panel [AGGREGATE] *Lipid Profile [facility] Work Phone: Start: 01-11-2013 End: 01-11-2013 SHOP HAND SHOP HAND [facility] Work Phone: Start: 01-11-2013 End: 01-11-2013 Echocardiography Echocardiogram (complete) [facility] Work Phone: Start: 01-11-2013 End: 01-11-2013 Follow Up Appt 1 year Follow Up Appt 1 year [facility] Work Phone: Start: 01-11-2013 End: 01-11-2013 SHOP HAND SHOP HAND [facility] Work Phone: Start: 01-11-2013 End: 01-11-2013 Echocardiography Echocardiogram (complete) [facility] Work Phone: Start: 01-11-2013 End: 01-11-2013 Follow Up Appt 1 year Follow Up Appt 1 year [facility] Work Phone: Start: 06-03-2012 End: 08-27-2012 *Hepatic Function Panel *Hepatic Function Panel [facility] Work Phone: Start: 06-03-2012 End: 08-27-2012 Lipid panel [AGGREGATE] *Lipid Profile [facility] Work Phone: Start: 06-03-2012 End: 08-27-2012 *Hepatic Function Panel *Hepatic Function Panel [facility] Work Phone: Start: 06-03-2012 End: 08-27-2012 Lipid panel [AGGREGATE] *Lipid Profile [facility] Work Phone: Start: 12-09-2011 End: 12-09-2011 Echocardiography Echocardiogram (complete) [facility] Work Phone: Start: 12-09-2011 End: 12-09-2011 Follow Up Appt 1 year Follow Up Appt 1 year [facility] Work Phone: Start: 12-09-2011 End: 12-09-2011 Echocardiography Echocardiogram (complete) [facility] Work Phone: Start: 12-09-2011 End: 12-09-2011 Follow Up Appt 1 year Follow Up Appt 1 year [facility] Work Phone: Start: 07-17-2011 End: 07-28-2011 *Hepatic Function Panel *Hepatic Function Panel [facility] Work Phone: Start: 07-17-2011 End: 07-28-2011 Lipid panel [AGGREGATE] *Lipid Profile [facility] Work Phone: Start: 07-17-2011 End: 07-28-2011 *Hepatic Function Panel *Hepatic Function Panel [facility] Work Phone: Start: 07-17-2011 End: 07-28-2011 Lipid panel [AGGREGATE] *Lipid Profile [facility] Work Phone: Start: 07-10-2011 End: 07-28-2011 *Hepatic Function Panel *Hepatic Function Panel [facility] Work Phone: Start: 07-10-2011 End: 07-28-2011 Lipid panel [AGGREGATE] *Lipid Profile [facility] Work Phone: Start: 07-10-2011 End: 07-28-2011 *Hepatic Function Panel *Hepatic Function Panel [facility] Work Phone: Start: 07-10-2011 End: 07-28-2011 Lipid panel [AGGREGATE] *Lipid Profile [facility] Work Phone: Start: 06-10-2011 End: 06-10-2011 Follow Up Appt 6 months Follow Up Appt 6 months [facility] Work Phone: Start: 06-10-2011 End: 06-10-2011 Follow Up Appt 6 months Follow Up Appt 6 months [facility] Work Phone: Patient Education [facility] Work Phone: Payers Date Payer Category Payer Medicare [id number] 2023 Medicare [id number] 1950 Unknown [id number] 1950 Unknown [id number] 1950 Unknown [id number] Social History Date Type Detail Facility Start: 05-06-2023 Tobacco smoking status Never s moked tobacco (finding) [facility] Sex Assigned At Female [facility] Functional Status Date Assessment Result Facility 05-06-2023 Functional Status Sensory Deficits None A [facility] Evaluation + Plan note Note Date & Type Note Facility Evaluation + Plan note Future Appointments [facility] Hospital course Narrative Note Date & Type Note Facility Hospital course Narrative No data available for this section [facility] Hospital Discharge instructions Note Date & Type Note Facility Hospital Discharge instructions No data available for this section [facility] Progress note Note Date & Type Note Facility Progress note No data available for this section [facility] Summary Purpose Family History No Family History Records FoundNo Family History Records Found No data available for this section No Family History Records Found Advance Directives No Advanced Directives Records FoundNo Advanced Directives Records FoundNo Advanced Directives Records Found Additional Source Comments INFORMATION SOURCE (unrecogn ized section and content) DATE CREATED AUTHOR AUTHOR'S ORGANIZ ATION 12/14/2018 Ezequiel Spicer [facility] DATE CREATED AUTHOR AUTHOR'S ORGANIZ ATSUE 05/20/[facility] Patient Care team informatio n (unrecognized section and content) Care Team Personnel Name: ADELINA ALVARENGA Gregorio ROBLEDO Member Role: Primary Care Physician Address: Address: [address] [place], [place] [address] FOR RECORDS PERTAINING TO PATIENTS WHO ARE OR HAVE BEEN ENROLLED IN A CHEMICAL DEPENDENCY/SUBSTANCEABUSE PROGRAM, SOME INFORMATION MAY BE OMITTED. This clinical summary was aggregated from multiple sources. Caution should be exercised in using it in the provision of clinical care. This summary normalizes information from multiple sources, and as a consequence, information in this document may materially change the coding, format and clinical context of patient data. In addition, data may be omitted in some cases. CLINICAL DECISIONS SHOULD BE BASED ON THE PRIMARY CLINICAL RECORDS. [facility]. provides no warranty or guarantee of the accuracy or completeness of information in this document.
[2023-06-11 09:01] LABS: International Normalized Ratio 2.4; Prothrombin Time (Protime)PT. 26.6 SECONDS (11.7-14.9)
== END 2023-06-11 18:00 | disposition home or self-care (01) ==
LOC: LAB 08:23
PROVIDERS: PCP Family Medicine; Referring Provider Family Medicine; Visit Provider Family Medicine
DX: D68.2 Hereditary deficiency of other clotting factors (principal)
CPT/HCPCS: 36415; 85610

== ENCOUNTER → 2023-06-18 | Outpatient (CLI) | payer MEDICARE, OTHER, SELFPAY ==
--- OUTSIDE RECORDS SUMMARY | 2023-06-18 06:18 | XMS RPT_ITS | CCD ---
Author Name Unknown Address [address] [place] [address] Organization [facility] Care Team Providers Care Chair Car Attendant Name Role Phone LISA Casper, Cherry Carpio [...] STUART GERONIMO Consulting STUART Brice Attending EMMANUEL Silva DO Admitting Unavailable Allergies Allergy Classification Reported Allergen(s) Allergy Type Date of Onset Reaction(s) Facility (10 sources) iodine drug allergy 1 [facility] Work Phone: [phone] (10 sources) levoFLOXacin drug allergy 6 Abdominal pain [facility] Work Phone: [phone] (10 sources) naproxen drug allergy 1 [facility] Work Phone: (1 source) Contrast media; Translations: [iodinated radiocontrast agents] Drug allergy WELTS ON FACE [facility] (1 source) levoFLOXacin; Translations: [levofloxacin] Drug Allergy ABDOMINAL PAIN [facility] (1 source) Naproxen; Translations: [naproxen] Drug Allergy STOMACH PAIN [facility] Medications Current Medications Medication Drug Class(es) Dates [...] three times daily as needed HYDROCODONE-ACETA MINOPHEN [id number] Jacinto Laureano MD amoxicillin 500 mg oral tablet (2 sources) Penicillin-class Antibacterial Start: 04-04-2017 take 4 tablets by mouth every hour AMOXICILLIN 500 MG TABS 4 tablets by mouth 1 hr prior to procedure AMOXICILLIN [id number] Martina Brandt PA-C aspirin 81 mg oral tablet (20 sources) Platelet Aggregation Inhibitor, Nonsteroidal Anti-inflammatory Drug Start: 06-10-2011 End: 10-18-2014 take 1 tablet by mouth once daily ASPIRIN 81 MG TABS One tablet by mouth daily ASPIRIN [id number] Melvin Flowers MD Problems Active Problems Problem [...] Coronary arteriosclerosis; Translations: [Atherosclerotic heart disease of [place] coronary artery without angina pectoris] Onset: 11-12-2010 [...] Onset: 12-01-2018 Episodic Other aftercare (1 source) snf (current) use of anticoagulants; Translations: [snf (current) use of anticoagulants] Onset: 12-01-2018 Episodic [...] (12 sources) Long-term drug therapy; Translations: [Other manager winter (current) drug therapy] Onset: 11-12-2010 Resolved: 05-08-2016 [...] 10-04-2015 Episodic Other aftercare (18 sources) Other shelter (current) drug therapy; Translations: [Other shelter (current) drug therapy] Onset: 11-12-2010 Resolved: 05-08-2016 [...] Blood Pressure Cuff Size EMMANUEL MENSAH DO [facility] 05-06-2023 13:12-0500 Blood Pressure Location EMMANUEL MENSAH DO [facility] 05-06-2023 13:12-0500 Blood Pressure Method EMMANUEL MENSAH DO [facility] 05-06-2023 13:12-0500 Body height 147.3 cm EMMANUEL MENSAH DO [facility] 05-06-2023 13:12-0500 Body weight 57.9 kg EMMANUEL MENSAH DO [facility] 05-06-2023 13:12-0500 Body weight 26.69 kg/m2 EMMANUEL MENSAH DO [facility] 05-06-2023 13:12-0500 Diastolic Blood Pressure Non-Invasive 70 mm[Hg] EMMANUEL MENSAH DO [facility] 05-06-2023 13:12-0500 Heart rate 63 /min EMMANUEL MENSAH DO [facility] 05-06-2023 13:12-0500 Systolic Blood Pressure Non-Invasive 132 mm[Hg] EMMANUEL MENSAH DO [facility] 11-05-2016 15:10-0400 BMI (Body Mass Index) 27.67 kg/m2 [facility] Work Phone: 11-05-2016 15:10-0400 Body weight 62.14 kg [facility] Work Phone: 11-05-2016 15:10-0400 Height 149.86 cm [facility] Work Phone: 11-05-2016 15:10-0400 Weight 62.14 kg [facility] Work Phone: 05-09-2016 14:34-0500 BMI (Body Mass Index) 27.67 kg/m2 Cherry Casper RN [facility] Work Phone: 05-09-2016 14:34-0500 Body [...] Work Phone: 10-21-2013 14:05-0400 Height 149.86 cm [facility] Work Phone: 10-21-2013 14:05-0400 Weight 73.55 kg Harumi DeFinis [facility] Work Phone: 12-09-2011 09:57-0400 Heart rate 58 /min Cherry Casper RN [facility] Work Phone: 12-09-2011 09:57-0400 Heart rate 419 ms Cherry Casper RN [facility] Work Phone: Encounters Encounter Date Encounter Type Care Provider Facility Start: 05-14-2023 End: 05-15-2023 ambulatory EMMANUEL MENSAH DO Facility:B Start: 05-06-2023 End: 05-07-[address] ADELINA ALVARENGA DO Facility:[facility] Start: 05-06-2023 End: 05-06-2023 Admission to establishment EMMANUEL MENSAH DO [facility] Start: 12-01-2018 End: 12-01-2018 Emergency department patient visit CHRISTINA Garcia JEN [facility] Procedures Date Procedure Procedure Detail Performing Clinician Start: 05-20-2017 End: 05-21-2017 *Hepatic Function Panel Jacinto Laureano MD Work Phone: Start: 05-20-2017 End: 05-21-2017 Lipid panel [AGGREGATE] Jacinto Laureano MD Work Phone: Start: 11-11-2016 End: 11-18-2016 *Hepatic Function Panel Jacinto Laureano MD Work Phone: Start: 11-11-2016 End: 11-18-2016 Lipid 1996 panel - Serum or Plasma Jacinto Laureano MD Work Phone: Start: 11-11-2016 [...] 10-21-2013 Follow Up Appt 1 year Shirin Bronw Work Phone: Start: 10-21-2013 End: 10-21-2013 CLAUDIA Laureano MD Work Phone: Start: 10-21-2013 End: 10-21-2013 Follow Up Appt 1 year Shirin Brown Work Phone: Start: 10-20-2013 End: 10-04-2015 Preoperative cardiovascular examination PRE-OPERATIVE CARDIOVASCULAR EXAMINATION Cherry Casper RN Start: 01-31-2013 End: 2013 *Hepatic [...] Omar Wilson MD Start: 01-11-2013 End: 01-11-2013 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 Omar Wilson MD Start: 01-11-2013 End: 2013 [...] Author Start: 06-16-2017 End: 06-16-2017 Appointment Appointment [facility] Work Phone: Start: 05-20-2017 End: 11-20-2016 *Hepatic Function Panel *Hepatic Function Panel [email or web address] Work Phone: Start: 05-20-2017 End: 11-20-2016 Lipid panel [AGGREGATE] *Lipid Profile CC P[facility] Work Phone: Start: 05-20-2017 End: 05-21-2017 *Hepatic Function Panel *Hepatic Function Panel [facility] Work Phone: Start: 05-20-2017 End: 05-21-2017 Lipid panel [AGGREGATE] *Lipid Profile CC PCP [facility] Work Phone: Start: 11-11-2016 End: 11-18-2016 *Hepatic Function Panel *Hepatic Function Panel [email or web address] Work Phone: Start: 11-11-2016 End: 11-18-2016 Lipid panel [AGGREGATE] *Lipid Profile CC PCP [facility] Work Phone: Start: 11-11-2016 End: 11-18-2016 *Hepatic Function Panel *Hepatic Function Panel [facility] Work Phone: Start: 11-11-2016 End: 11-18-2016 Lipid panel [AGGREGATE] *Lipid Profile CC PCP [facility] Work Phone: Start: 11-05-2016 End: 11-05-2016 Appointment Appointment [email or web address] Work Phone: Start: 11-05-2016 End: 11-05-2016 CLAUDIA TAYLOR [email or web address] Work Phone: Start: 11-05-2016 End: 11-05-2016 Echocardiography Echocardiogram (complete) [email or web address] Work Phone: Start: 11-05-2016 End: 11-05-2016 Follow Up Appt 6 months Follow Up Appt 6 months [email or web address] Work Phone: Start: 11-05-2016 End: 11-05-2016 Stress [...] 05-13-2016 *Hepatic Function Panel *Hepatic Function Panel [facility] Work Phone: Start: 05-09-2016 End: 05-09-2016 DJN DJN [facility] Work Phone: Start: 05-09-2016 End: 05-09-2016 Follow Up Appt 6 months Follow Up Appt 6 months [facility] Work Phone: Start: 05-09-2016 End: 05-13-2016 Lipid panel [AGGREGATE] *Lipid Profile CC PCP [facility] Work Phone: Start: 05-09-2016 End: 05-13-2016 *Hepatic Function Panel *Hepatic Function Panel [facility] Work Phone: Start: 05-09-2016 End: 05-09-2016 CLAUDIA DJN [facility] Work Phone: Start: 05-09-2016 End: 05-09-2016 Follow Up Appt 6 months Follow Up Appt 6 months [facility] Work Phone: Start: 05-09-2016 End: 05-13-2016 Lipid panel [AGGREGATE] *Lipid Profile CC PCP [facility] Work Phone: Start: 10-10-2015 End: 10-10-2015 CLAUDIA LISAN [facility] Work Phone: Start: 10-10-2015 End: 10-10-2015 Echocardiography Echocardiogram (complete) [facility] Work Phone: Start: 10-10-2015 End: 10-10-2015 Follow Up Appt 6 months Follow Up Appt 6 months [facility] Work Phone: Start: 10-10-2015 End: 10-10-2015 Stress Echocardiogram (treadmill) Stress Echocardiogram (treadmill) [facility] Work Phone: Start: 10-10-2015 End: 10-10-2015 CLAUDIA TAYLOR [facility] Work Phone: Start: 10-10-2015 End: 10-10-2015 Echocardiography Echocardiogram (complete) [facility] Phone: Start: 10-10-2015 End: 10-10-2015 Follow Up Appt 6 months Follow Up Appt 6 months [email or web address] Work Phone: Start: 10-10-2015 End: 10-10-2015 Stress Echocardiogram (treadmill) Stress Echocardiogram (treadmill) [email or web address] Work Phone: Start: 09-04-2015 End: 09-08-2015 INR Coag RelTime (PPP) *PT/INR - Standing Order [email or web address] Work Phone: Start: 09-04-2015 End: 09-08-2015 Coagulation factor induced.INR assay in platelet poor plasma *PT/INR - Standing Order [email or web address] Work Phone: Start: 10-18-2014 End: 10-18-2014 CLAUDIA CLAUDIA [email or web address] Work Phone: Start: 10-18-2014 End: 10-18-2014 Follow Up Appt 1 year Follow Up Appt 1 year [email or web address] Work Phone: Start: 10-18-2014 End: 10-18-2014 CLAUDIA CLAUDIA [email or web address] Work Phone: Start: 10-18-2014 End: 10-18-2014 Follow Up Appt 1 year Follow Up Appt 1 year [email or web address] Work Phone: Start: 10-21-2013 End: 10-21-2013 CLAUDIA CLAUDIA [email or web address] Work Phone: Start: 10-21-2013 End: 10-21-2013 Follow Up Appt 1 year Follow Up Appt 1 year [facility] Work Phone: Start: 10-21-2013 End: 10-21-2013 CLAUDIA CLAUDIA [email or web address] Work Phone: Start: 10-21-2013 End: 10-21-2013 Follow Up Appt 1 year Follow Up Appt 1 year [facility] Work Phone: Start: 01-31-2013 End: 2013 *Hepatic Function Panel *Hepatic Function Panel [facility] Work Phone: Start: 01-31-2013 End: 2013 Lipid panel [AGGREGATE] *Lipid Profile [facility] Work Phone: Start: 01-31-2013 End: 2013 *Hepatic Function Panel *Hepatic Function Panel [facility] Work Phone: Start: 01-31-2013 End: 2013 Lipid panel [AGGREGATE] *Lipid Profile [facility] Work Phone: Start: 01-11-2013 End: 01-11-2013 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 [facility] Work Phone: Start: 01-11-2013 End: 01-11-2013 Echocardiography Echocardiogram (complete) [facility] Work Phone: Start: 01-11-2013 End: 01-11-2013 Follow Up Appt 1 year Follow Up Appt 1 year [facility] Work Phone: Start: 01-11-2013 End: 01-11-2013 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 [facility] Work Phone: Start: 01-11-2013 End: 01-11-2013 Echocardiography Echocardiogram (complete) [facility] Work Phone: Start: 01-11-2013 End: 01-11-2013 Follow Up Appt 1 year Follow Up Appt 1 year [facility] Work Phone: Start: 06-03-2012 End: 08-27-2012 *Hepatic Function Panel *Hepatic Function Panel [facility] Work Phone: Start: 06-03-2012 End: 08-27-2012 Lipid panel [AGGREGATE] *Lipid Profile [facility] Work Phone: Start: 06-03-2012 End: 08-27-2012 *Hepatic Function Panel *Hepatic Function Panel [facility] Work Phone: Start: 06-03-2012 End: 08-27-2012 Lipid panel [AGGREGATE] *Lipid Profile [facility] Work Phone: Start: 12-09-2011 End: 12-09-2011 Echocardiography Echocardiogram (complete) [facility] Work Phone: Start: 12-09-2011 End: 12-09-2011 Follow Up Appt 1 year Follow Up Appt 1 year [facility] Work Phone: Start: 12-09-2011 End: [...] 07-28-2011 *Hepatic Function Panel *Hepatic Function Panel [facility] Work Phone: Start: 07-17-2011 End: 07-28-2011 Lipid panel [AGGREGATE] *Lipid Profile [facility] Work Phone: Start: 07-10-2011 End: 07-28-2011 *Hepatic Function Panel *Hepatic Function Panel [facility] Work Phone: Start: 07-10-2011 End: 07-28-2011 Lipid panel [AGGREGATE] *Lipid Profile [facility] Work Phone: Start: 07-10-2011 End: 07-28-2011 *Hepatic Function Panel *Hepatic Function Panel [facility] Work Phone: Start: 07-10-2011 End: 07-28-2011 Lipid panel [AGGREGATE] *Lipid Profile [facility] Work Phone: Start: 06-10-2011 End: 06-10-2011 Follow Up Appt 6 months Follow Up Appt 6 months [facility] Work Phone: Start: 06-10-2011 End: 06-10-2011 Follow Up Appt 6 months Follow Up Appt 6 months [facility] Work Phone: Patient Education [facility] Work Phone: Payers Date Payer Category Payer Medicare [id number] 2023 Medicare [id number] 1950 Unknown [id number] 1950 Unknown [id number] 1950 Unknown [id number] Social History Date Type Detail Facility Start: 05-06-2023 Tobacco smoking status Never s moked tobacco (finding) [facility] Sex Assigned At Female [facility] Functional Status Date Assessment Result Facility 05-06-2023 Functional Status Sensory Deficits None A [facility] Evaluation + Plan note Note Date & Type Note Facility Evaluation + Plan note Future Appointments [facility] Hospital course Narrative Note Date & Type Note Facility Hospital course Narrative No data available for this section [facility] Hospital Discharge instructions Note Date & Type Note Facility Hospital Discharge instructions No data available for this section [facility] Progress note Note Date & Type Note Facility Progress note No data available for this section [facility] Summary Purpose Family History No Family History Records FoundNo Family History Records Found No data available for this section No Family History Records Found Advance Directives No Advanced Directives Records FoundNo Advanced Directives Records FoundNo Advanced Directives Records Found Additional Source Comments INFORMATION SOURCE (unrecogn ized section and content) DATE CREATED AUTHOR AUTHOR'S ORGANIZ ATION 12/14/2018 Ezequiel Spicer [facility] DATE CREATED AUTHOR AUTHOR'S ORGANIZ ATSUE 05/20/2023 [facility] ([place]) Patient Care team informatio n (unrecognized section and content) Care Team Personnel Name: ADELINA ALVARENGA Gregorio ROBLEDO Member Role: Primary Care Physician Address: Address: [address] [place], [place] [address] FOR RECORDS PERTAINING TO PATIENTS WHO [...] BE BASED ON THE PRIMARY CLINICAL RECORDS. [facility]. provides no warranty or guarantee of the accuracy or completeness of information in this document.
--- NOTE | 2023-06-18 09:06 | STRESSREP ---
Stress Test Report Pharmacologic myocardial perfusion stress test. 73-year-old lady with a history of chest pain Resting EKG demonstrates sinus bradycardia with a rate of 56 bpm. Resting blood pressure is 114/70 mmHg. 0.4 mg of regadenoson was infused per usual protocol followed by rapid intravenous saline flush injection. Continuous EKG monitoring was performed. The maximum heart rate was 96 bpm which was 64% of max impacted heart rate the maximum workload was 1 metabolic equivalent. At rest there were no ST or T wave changes noted to suggest ischemia and at peak infusion nonspecific ST changes were noted which did not meet the criteria for ischemia. No clinical angina is noted. The final blood pressure was 118/62 mmHg. Myocardial perfusion protocol. 11.8 mCi of technetium 99m sestamibi was injected at rest. 0.4 mg of regadenoson was infused per usual protocol. At peak infusion 33.7 mCi of technetium 99m sestamibi was injected stress images were obtained stress and rest images were reconstructed and compared in the short axis vertical long and horizontal long axis. Gated images were also obtained. Perfusion SPECT analysis: Review of the stress images demonstrate normal uptake of tracer noted in all areas of the myocardium. The resting images similar demonstrated normal uptake of tracer noted in all areas of the myocardium. No areas of reversibility are noted to suggest ischemia and no previous infarct is noted. Gated SPECT analysis: The gated ejection fraction is 80%. Conclusion: Normal pharmacologic myocardial perfusion stress test. Preserved ejection fraction.
== END | disposition home or self-care (01) ==
LOC: CVS 06:15
PROVIDERS: PCP Family Medicine; Referring Provider Nurse Practitioner Family; Visit Provider Nurse Practitioner Family
DX: R07.9 Chest pain, unspecified (principal); D68.2 Hereditary deficiency of other clotting factors; I10 Essential (primary) hypertension; E78.00 Pure hypercholesterolemia, unspecified; I25.10 Atherosclerotic heart disease of native coronary artery without angina pectoris
CPT/HCPCS: 78452; 93017; A9500; A4216; J2785

== ENCOUNTER → 2023-06-24 | Outpatient (CLI) | payer MEDICARE, OTHER, SELFPAY ==
--- OUTSIDE RECORDS SUMMARY | 2023-06-24 17:01 | XMS RPT_ITS | CCD ---
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 Name Role Phone LISA Casper, Cherry Carpio Unavailable Unavailkelton Harrington RN, Erika Perkins Unavailable Unavailable Cinthia Arteaga Unavailable Unavailable Yina Hayes Unavailable Unavailable LISA Casper, Cherry Carpio Unavailable Unavailkelton Harrington RN, Erika Perkins Unavailable Unavailable LAMINE Brandt, Martina Carpio Unavailable [phone] Yina Hayes Unavailable Unavailable CHRISTINA LI Admitting [...] allergy 1 [facility] Work Phone: [phone] (10 sources) levoFLOXacin drug allergy 6 Abdominal pain [facility] Work Phone: [phone] (10 sources) naproxen drug allergy 1 [facility] Work Phone: (1 source) Contrast media; Translations: [iodinated radiocontrast agents] Drug allergy WELTS ON FACE [facility] (1 source) levoFLOXacin; Translations: [levofloxacin] Drug Allergy ABDOMINAL PAIN [facility] (1 source) Naproxen; Translations: [naproxen] Drug Allergy STOMACH PAIN [facility] Medications Current Medications Medication Drug Class(es) Dates [...] three times daily as needed HYDROCODONE-ACETA MINOPHEN [id number] Jacinto Laureano MD amoxicillin 500 mg oral tablet (2 sources) Penicillin-class Antibacterial Start: 04-04-2017 take 4 tablets by mouth every hour AMOXICILLIN 500 MG TABS 4 tablets by mouth 1 hr prior to procedure AMOXICILLIN [id number] Martina Brandt PA-C aspirin 81 mg oral tablet (20 sources) Platelet Aggregation Inhibitor, Nonsteroidal Anti-inflammatory Drug Start: 06-10-2011 End: 10-18-2014 take 1 tablet by mouth once daily ASPIRIN 81 MG TABS One tablet by mouth daily ASPIRIN [id number] Melvin Flowers MD Problems Active Problems Problem [...] Coronary arteriosclerosis; Translations: [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] Onset: 11-12-2010 [...] (12 sources) Long-term drug therapy; Translations: [Other [place] (current) drug therapy] Onset: 11-12-2010 Resolved: 05-08-2016 [...] 10-04-2015 Episodic Other aftercare (18 sources) [facility] [place] [facility] therapy; Translations: [Other [place] [facility] [place] drug therapy] Onset: 11-12-2010 Resolved: 05-08-2016 [...] Blood Pressure Cuff Size EMMANUEL MENSAH DO [facility] 05-06-2023 13:12-0500 Blood Pressure Location EMMANUEL MENSAH DO [facility] 05-06-2023 13:12-0500 Blood Pressure Method EMMANUEL MENSAH DO [facility] 05-06-2023 13:12-0500 Body height 147.3 cm EMMANUEL MENSAH DO [facility] 05-06-2023 13:12-0500 Body weight 57.9 kg EMMANUEL MENSAH DO [facility] 05-06-2023 13:12-0500 Body weight 26.69 kg/m2 EMMANUEL MENSAH DO [facility] 05-06-2023 13:12-0500 Diastolic Blood Pressure Non-Invasive 70 mm[Hg] EMMANUEL MENSAH DO [facility] 05-06-2023 13:12-0500 Heart rate 63 /min EMMANUEL MENSAH DO [facility] 05-06-2023 13:12-0500 Systolic Blood Pressure Non-Invasive 132 mm[Hg] EMMANUEL MENSAH DO [facility] 11-05-2016 15:10-0400 BMI (Body Mass Index) 27.67 kg/m2 [facility] Work Phone: 11-05-2016 15:10-0400 Body weight 62.14 kg [facility] Work Phone: 11-05-2016 15:10-0400 Height 149.86 cm [facility] Work Phone: 11-05-2016 15:10-0400 Weight 62.14 kg [facility] Work Phone: 05-09-2016 14:34-0500 BMI (Body Mass Index) 27.67 kg/m2 Cherry Casper RN [facility] Work Phone: 05-09-2016 14:34-0500 Body [...] 10-21-2013 14:05-0400 Weight 73.55 kg Harumi DeFinis [facility] Work Phone: 12-09-2011 09:57-0400 Heart rate 58 /min Cherry Casper RN [facility] Work Phone: 12-09-2011 09:57-0400 Heart rate 419 ms Cherry Caspre RN [facility] Work Phone: Encounters Encounter Date Encounter Type Care Provider Facility Start: 05-14-2023 End: 05-15-2023 ambulatory EMMANUEL MENSAH DO Facility:[facility] Start: 05-06-2023 End: 05-07-[address] ADELINA ALVARENGA DO Facility:[facility] Start: 05-06-2023 End: 05-06-2023 Admission to establishment EMMANUEL MENSAH DO [facility] Start: 12-01-2018 End: 12-01-2018 Emergency department patient visit CHRISTINA Garcia JEN [facility] Procedures Date Procedure Procedure Detail Performing Clinician [...] Omar Wilson MD Start: 01-11-2013 End: 01-11-2013 TRAUMA DOCTOR Omar Wilson MD Start: 01-11-2013 End: 2013 [...] Author Start: 06-16-2017 End: 06-16-2017 Appointment Appointment [facility] Work Phone: Start: 05-20-2017 End: 11-20-2016 *Hepatic Function Panel *Hepatic Function Panel [facility] Work Phone: Start: 05-20-2017 End: 11-20-2016 Lipid panel [AGGREGATE] *Lipid Profile CC PCP [facility] Work Phone: Start: 05-20-2017 End: 05-21-2017 *Hepatic Function Panel *Hepatic Function Panel [facility] Work Phone: Start: 05-20-2017 End: 05-21-2017 Lipid panel [AGGREGATE] *Lipid Profile CC PCP [facility] Work Phone: Start: 11-11-2016 End: 11-18-2016 *Hepatic Function Panel *Hepatic Function Panel [facility] [employer] Work Phone: Start: 11-11-2016 End: 11-18-2016 Lipid panel [AGGREGATE] *Lipid Profile CC PCP [facility] Work Phone: Start: 11-11-2016 End: 11-18-2016 *Hepatic Function Panel *Hepatic Function Panel [facility] Work Phone: Start: 11-11-2016 End: 11-18-2016 Lipid panel [AGGREGATE] *Lipid Profile CC PCP [facility] Work Phone: Start: 11-05-2016 End: 11-05-2016 Appointment Appointment [facility] [employer] Work Phone: Start: 11-05-2016 End: 11-05-2016 CLAUDIA TAYLOR [facility] [employer] Work Phone: Start: 11-05-2016 End: 11-05-2016 Echocardiography Echocardiogram (complete) [facility] [employer] Work Phone: Start: 11-05-2016 End: 11-05-2016 Follow Up Appt 6 months Follow Up Appt 6 months [facility] [employer] Work Phone: Start: 11-05-2016 End: 11-05-2016 Stress [...] 05-13-2016 *Hepatic Function Panel *Hepatic Function Panel [facility] Work Phone: Start: 05-09-2016 End: 05-09-2016 DJN DJN [facility] Work Phone: Start: 05-09-2016 End: 05-09-2016 Follow Up Appt 6 months Follow Up Appt 6 months [facility] Work Phone: Start: 05-09-2016 End: 05-13-2016 Lipid panel [AGGREGATE] *Lipid Profile CC PCP [facility] Work Phone: Start: 05-09-2016 End: 05-13-2016 *Hepatic Function Panel *Hepatic Function Panel [facility] Work Phone: Start: 05-09-2016 End: 05-09-2016 CLAUDIA DJN [facility] Work Phone: Start: 05-09-2016 End: 05-09-2016 Follow Up Appt 6 months Follow Up Appt 6 months [facility] Work Phone: Start: 05-09-2016 End: 05-13-2016 Lipid panel [AGGREGATE] *Lipid Profile CC PCP [facility] Work Phone: Start: 10-10-2015 End: 10-10-2015 CLAUDIA LISAN [facility] Work Phone: Start: 10-10-2015 End: 10-10-2015 Echocardiography Echocardiogram (complete) [facility] Work Phone: Start: 10-10-2015 End: 10-10-2015 Follow Up Appt 6 months Follow Up Appt 6 months [facility] Work Phone: Start: 10-10-2015 End: 10-10-2015 Stress Echocardiogram (treadmill) Stress Echocardiogram (treadmill) [facility] Work Phone: Start: 10-10-2015 End: 10-10-2015 CLAUDIA TAYLOR [facility] Work Phone: Start: 10-10-2015 End: 10-10-2015 Echocardiography Echocardiogram (complete) [facility] [employer] Phone: Start: 10-10-2015 End: 10-10-2015 Follow Up Appt 6 months Follow Up Appt 6 months [employer] [facility] [employer] Work Phone: Start: 10-10-2015 End: 10-10-2015 Stress Echocardiogram (treadmill) Stress Echocardiogram (treadmill) [facility] [employer] Work Phone: Start: 09-04-2015 End: 09-08-2015 INR Coag RelTime (PPP) *PT/INR - Standing Order [facility] Work Phone: Start: 09-04-2015 End: 09-08-2015 Coagulation factor induced.INR assay in platelet poor plasma *PT/INR - Standing Order [facility] [employer] Work Phone: Start: 10-18-2014 End: 10-18-2014 CLAUDIA CLAUDIA [facility] [employer] Work Phone: Start: 10-18-2014 End: 10-18-2014 Follow Up Appt 1 year Follow Up Appt 1 year [facility] [employer] Work Phone: Start: 10-18-2014 End: 10-18-2014 CLAUDIA CLAUDIA [facility] Work Phone: Start: 10-18-2014 End: 10-18-2014 Follow Up Appt 1 year Follow Up Appt 1 year [facility] [employer] Work Phone: Start: 10-21-2013 End: 10-21-2013 CLAUDIA CLAUDIA [facility] [employer] Work Phone: Start: 10-21-2013 End: 10-21-2013 Follow Up Appt 1 year Follow Up Appt 1 year [facility] Work Phone: Start: 10-21-2013 End: 10-21-2013 CLAUDIA CLAUDIA [facility] Work Phone: Start: 10-21-2013 End: 10-21-2013 Follow Up Appt 1 year Follow Up Appt 1 year [facility] Work Phone: Start: 01-31-2013 End: 2013 *Hepatic Function Panel *Hepatic Function Panel [facility] Work Phone: Start: 01-31-2013 End: 2013 Lipid panel [AGGREGATE] *Lipid Profile [facility] Work Phone: Start: 01-31-2013 End: 2013 *Hepatic Function Panel *Hepatic Function Panel [facility] Work Phone: Start: 01-31-2013 End: 2013 Lipid panel [AGGREGATE] *Lipid Profile [facility] Work Phone: Start: 01-11-2013 End: 01-11-2013 TRAUMA DOCTOR TRAUMA DOCTOR [facility] Work Phone: Start: 01-11-2013 End: 01-11-2013 Echocardiography Echocardiogram (complete) [facility] Work Phone: Start: 01-11-2013 End: 01-11-2013 Follow Up Appt 1 year Follow Up Appt 1 year [facility] Work Phone: Start: 01-11-2013 End: 01-11-2013 TRAUMA DOCTOR TRAUMA DOCTOR [facility] Work Phone: Start: 01-11-2013 End: 01-11-2013 Echocardiography Echocardiogram (complete) [facility] Work Phone: Start: 01-11-2013 End: 01-11-2013 Follow Up Appt 1 year Follow Up Appt 1 year [facility] Work Phone: Start: 06-03-2012 End: 08-27-2012 *Hepatic Function Panel *Hepatic Function Panel [facility] Work Phone: Start: 06-03-2012 End: 08-27-2012 Lipid panel [AGGREGATE] *Lipid Profile [facility] Work Phone: Start: 06-03-2012 End: 08-27-2012 *Hepatic Function Panel *Hepatic Function Panel [facility] Work Phone: Start: 06-03-2012 End: 08-27-2012 Lipid panel [AGGREGATE] *Lipid Profile [facility] Work Phone: Start: 12-09-2011 End: 12-09-2011 Echocardiography Echocardiogram (complete) [facility] Work Phone: Start: 12-09-2011 End: 12-09-2011 Follow Up Appt 1 year Follow Up Appt 1 year [facility] Work Phone: Start: 12-09-2011 End: [...] 07-28-2011 *Hepatic Function Panel *Hepatic Function Panel [facility] Work Phone: Start: 07-17-2011 End: 07-28-2011 Lipid panel [AGGREGATE] *Lipid Profile [facility] Work Phone: Start: 07-10-2011 End: 07-28-2011 *Hepatic Function Panel *Hepatic Function Panel [facility] Work Phone: Start: 07-10-2011 End: 07-28-2011 Lipid panel [AGGREGATE] *Lipid Profile [facility] Work Phone: Start: 07-10-2011 End: 07-28-2011 *Hepatic Function Panel *Hepatic Function Panel [facility] Work Phone: Start: 07-10-2011 End: 07-28-2011 Lipid panel [AGGREGATE] *Lipid Profile [facility] Work Phone: Start: 06-10-2011 End: 06-10-2011 Follow Up Appt 6 months Follow Up Appt 6 months [facility] Work Phone: Start: 06-10-2011 End: 06-10-2011 Follow Up Appt 6 months Follow Up Appt 6 months [facility] Work Phone: Patient Education [facility] Work Phone: Payers Date Payer Category Payer Medicare [id number] 2023 Medicare [id number] 1950 Unknown [id number] 1950 Unknown [id number] 1950 Unknown [id number] Social History Date Type Detail Facility Start: 05-06-2023 Tobacco smoking status Never s moked tobacco (finding) [facility] Sex Assigned At Female [facility] Functional Status Date Assessment Result Facility 05-06-2023 Functional Status Sensory Deficits None A [facility] Evaluation + Plan note Note Date & Type Note Facility Evaluation + Plan note Future Appointments [facility] Hospital course Narrative Note Date & Type Note Facility Hospital course Narrative No data available for this section [facility] Hospital Discharge instructions Note Date & Type Note Facility Hospital Discharge instructions No data available for this section [facility] Progress note Note Date & Type Note Facility Progress note No data available for this section [facility] Summary Purpose Family History No Family History Records FoundNo Family History Records Found No data available for this section No Family History Records Found Advance Directives No Advanced Directives Records FoundNo Advanced Directives Records FoundNo Advanced Directives Records Found Additional Source Comments INFORMATION SOURCE (unrecogn ized section and content) DATE CREATED AUTHOR AUTHOR'S ORGANIZ ATION 12/14/2018 Ezequiel Spicer [facility] DATE CREATED AUTHOR AUTHOR'S ORGANIZ ATSUE 05/20/2023 [facility] ([place]) Patient Care team informatio n (unrecognized section and content) Care Team Personnel Name: ADELINA ALVARENGA Gregorio ROBLEDO Member Role: Primary Care Physician Address: Address: [address] [place], [place] [address] FOR RECORDS PERTAINING TO PATIENTS WHO ARE [...] BE BASED ON THE PRIMARY CLINICAL RECORDS. [facility]. provides no warranty or guarantee of the accuracy or completeness of information in this document.
== END | disposition home or self-care (01) ==
LOC: LABSPEC 16:57
PROVIDERS: PCP Family Medicine; Referring Provider Orthopaedic Surgery; Visit Provider Orthopaedic Surgery
DX: T81.31XA Disruption of external operation (surgical) wound, not elsewhere classified, initial encounter (principal)
CPT/HCPCS: 87070; 87075; 87205

== ENCOUNTER → 2023-08-19 | Outpatient (CLI) | payer MEDICARE, OTHER, SELFPAY ==
--- NOTE | 2023-08-19 12:36 | BI_ITS ---
MAMMOGRAPHY - BILATERAL SCREENING REASON FOR EXAM: Female, 73 years old. Routine annual screening examination. PERTINENT HISTORY: Aunt with breast cancer. Remote right excisional breast biopsy. TECHNIQUE: Digital bilateral breast brayan (3D mammographic acquisition) in the CC and MLO projections. 2-D mediolateral oblique (MLO) and craniocaudad (CC) views of both breasts were obtained. CAD: Full Field Digital Mammography with Computer Added Detection was performed. COMPARISON: Comparison is made with prior study July 10, 2022 and July 09, 2021. FINDINGS: Breast Composition: There are scattered areas of fibroglandular density. There are no dominant masses or suspicious calcifications. Stable benign-appearing left axillary lymph nodes. No other significant abnormalities are identified. There has been no significant change since the prior study. BI/SCRN MAMM (CAD)W/BRAYAN BILAT IMPRESSION: Stable bilateral screening mammogram. Yearly follow-up mammogram recommended. (A) ASSESSMENT CATEGORY: BIRADS Category 2: Benign. A letter regarding these results will be sent to the patient by the facility within 30 days. Approximately 10% of breast cancers are not detected by mammography. A normal mammogram should not delay biopsy of a clinically suspicious abnormality. [id number] Electronically Signed: Efrain Klein MD at 14:38 EDT ,
--- NOTE | 2023-08-19 12:52 | BD_ITS ---
STUDY: DUAL ENERGY X-RAY ABSORPTIOMETRY / DXA REASON FOR EXAM: Female, 73 years old. M810 TECHNIQUE: Bone Mineral Density (BMD) measurements of lumbar spine and bilateral hips were obtained. COMPARISON: Comparison is made with prior study dated August 14, 2021. FINDINGS: Lumbar Spine (L1-L4): g/cm2 (0.803) / T-score (-2.1) / Z-score (0.1) Findings are suggestive of osteopenia with a high fracture risk. Left Femur Total: g/cm2 (0.686) / T-score (-2.1) / Z-score (-0.5) Left Femoral Neck: g/cm2 (0.528) / T-score (-2.9) / Z-score (-1.0) Right Femur Total: g/cm2 (0.699) / T-score (-2.0) / Z-score (-0.4) Right Femoral Neck: g/cm2 (0.577) / T-score (-2.5) / Z-score (-0.5) The T-Scores on the most recent prior examination were: Lumbar Spine (L1-L4): There has been worsening of bone density since the previous examination. Left Femur Total: which represents a worsening of 8.9%. Right Femur Total: which represents a worsening of 4.5%. BD/Dexa Bone Density Study IMPRESSION: The patient is considered osteoporotic as outlined below according to World Gian Organization (WHO) criteria with a high fracture risk. There has been worsening of bone density since the previous examination. Reference Information: The T-score is the number of standard deviations above or below the standard which is normal for young adults at their peak bone mineral density. The World Health Organization (WHO) interprets the T-scores as follows: Above -1 Normal bone density Between -1 and -2.5 Osteopenia Equal to / or below -2.5 Osteoporosis As a practical clinical guideline, osteopenia may be graded as follows: Mild -1 through -1.5 Moderate -1.6 through -2.0 Severe -2.1 through -2.4 The Z-score is the number of standard deviations above or below age-matched controls. A Z-score of less than -1.5 would be considered abnormal. References: 1. NIH Osteoporosis and Related Bone Diseases www osteo.org 2. International Society for Clinical Densitometry www iscd.org 3. National Osteoporosis Foundation www nof.org Electronically Signed: Efrain Klein MD at 13:15 EDT ,
== END | disposition home or self-care (01) ==
LOC: OPBD 12:35
PROVIDERS: PCP Family Medicine; Referring Provider Family Medicine; Visit Provider Family Medicine
DX: Z12.31 Encounter for screening mammogram for malignant neoplasm of breast (principal); Z80.3 Family history of malignant neoplasm of breast; M81.0 Age-related osteoporosis without current pathological fracture
CPT/HCPCS: 77063; 77067; 77080

== ENCOUNTER → 2023-11-25 | Outpatient (CLI) | payer MEDICARE, OTHER, SELFPAY ==
--- NOTE | 2023-11-25 08:47 | RAD_ITS ---
STUDY: X-RAY - ESOPHAGUS (BARIUM SWALLOW) WITH FLUOROSCOPY REASON FOR EXAM: Female, 73 years old. Prior fundoplication. TECHNIQUE: 20 view(s) of the esophagus were obtained following swallowing of barium. FLUOROSCOPY TIME (if supplied): (34 seconds) minutes/seconds. 11.5 mGy. COMPARISON: None. FINDINGS: There is no demonstrated esophageal foreign body. There is no demonstrated stricture or mucosal abnormality. Moderate size hiatal hernia with gastroesophageal reflux. The patient ingested a 12 mm tablet of barium without any difficulty. There is atherosclerotic tortuosity of the aortic arch and descending thoracic aorta. Normal visualized pulmonary parenchyma. There are degenerative changes of the visualized thoracic spine. RAD/Esophagus Dual Contrast IMPRESSION: Moderate-sized hiatal hernia with gastroesophageal reflux. Electronically Signed: Efrain Klein MD at 11:14 EDT ,
== END | disposition home or self-care (01) ==
LOC: RAD 08:43
PROVIDERS: PCP Family Medicine; Referring Provider Internal Medicine Gastroenterology; Visit Provider Internal Medicine Gastroenterology
DX: K22.4 Dyskinesia of esophagus (principal)
CPT/HCPCS: 74221

== ENCOUNTER 2023-11-26 05:21 | Day surgery (SDC) | payer MEDICARE, OTHER, SELFPAY ==
[2023-11-26] VITALS (8 sets, daily range): BP systolic 96–130; BP diastolic 64–73; PULSE 58–85; RESP 16–18; TEMP 36.2–36.7; O2SAT 95–98; BMI 26.2
--- NOTE | 2023-11-26 | EGD_PTH ---
PATIENT: SHANE CHAMBERS LOC: EN U#:[id number] AGE/SX: 73/F ROOM: RE11/26/[address]: Dr. Hao Engle DO : 1950 BED: DIS: 11/26/2023 SPEC #: [id number] RECD: 11/26/23 11:11 STATUS: SANDY LILIANA #: [id number] MEHDI: 11/26/23 00:[address]: Hao Engle DEPT: SURGICAL PATHOLOGY RECD BY: Jeff Baron ENTERED: 11/26/23 12:44 SP TYPE: EGD BIOPSY OT DR: Dr. Adelina Alvarenga DO Tissues: Esophagus, NOS Procedures: Special Stain Group I Surgery Specimen Level IV Alcian Blue/PAS (control) HEADER OPERATION: EGD with biopsies PRE-OP DIAGNOSIS: Esophageal spasm, dumping syndrome, GERD, history of fundoplication, change in bowel habit, dysphagia TISSUE SUBMITTED: Distal esophagus MICROSCOPIC DIAGNOSIS Distal esophagus, biopsy: Fragments of gastroesophageal mucosa with chronic inflammation. Intestinal metaplasia (goblet cell metaplasia) not identified. See comment. BEREKET/ 11/27/2023 COMMENT Alcian blue/PAS stain with matched control is used in the evaluation of the specimen. MICROSCOPIC DESCRIPTION Slides are reviewed. GROSS DESCRIPTION Received in fixative is one container labeled with the patient's name and designated Distal esophagus. The specimen consists of two irregular fragments of light price soft tissue that in aggregate measure 0.6 x 0.3 x 0.1 cm. The specimen is totally submitted in one cassette. BEREKET/ 11/26/2023 TC:3 CPT:90865,71508
[2023-11-26] MEDS: Lactated Ringers 1,000 ML 15 ML IV (06:02)
--- NOTE | 2023-11-26 06:30 | PRE.ANES_ITS ---
ASA Classification* ASA Classification ASA Classification: 3 Assessment & Plan Anesthesia* Anesthesia Assessment Anesthesia Assessment: Discussed sedation and/or anesthesia options, risks, benefits, and alternatives with patient/parents/legal guardian/POA. Questions invited. The patient/parents/legal guardian/POA seems to understand and agrees to proceed with anesthesia plan. Reviewed the physical assessment, medical history, allergy history and patient home medications list prior to surgery/procedure/anesthetic and documented any changes. Performed airway and anesthesia risk assessments. Procedural Plan Procedural Plan:: Proceed w/ Anesthesia plan Anesthesia Type Anesthesia Type: MAC Anesthesia Focused Assessment* Temperature: 98.1 F Pulse Rate: 58 Blood Pressure: 130/73 Respiratory Rate: 16 Pulse Ox: 98 Airway Assessment Mouth opens: >3 cm Mallampati Score: II Focused Labs Anesthesia Preop lab: CBC WBC 4.4 K/mm3 (4.4-11.0) 04/07/23 08:40 RBC 4.33 M/mm3 (4.2-5.4) 04/07/23 08:40 Hgb 13.5 g/dL (12.0-15.0) 04/07/23 08:40 Hct 43.5 % (37-47) 04/07/23 08:40 Plt Count 240 K/mm3 (150-450) 04/07/23 08:40 CHEMISTRY Potassium 3.7 mmol/L (3.5-5.1) 04/07/23 08:40 Sodium 142 mmol/L (136-145) 04/07/23 08:40 Magnesium 2.0 mg/dL (1.6-2.6) 05/03/20 15:01 Phosphorus 3.6 mg/dL (2.5-4.9) 03/11/12 07:32 BUN 14 mg/dL (7-18) 04/07/23 08:40 Creatinine 0.80 mg/dL (0.55-1.02) 04/07/23 08:40 Glucose 92 mg/dL (74-106) 04/07/23 08:40 POC Glucose 189 mg/dL (70-110) H 05/05/20 17:50 TSH 1.55 uIU/mL (0.358-3.74) 12/04/22 15:59 COAG PT 26.6 SECONDS (11.7-14.9) H 06/11/23 08:27 Pre-Assessment Diagnosis/Proposed Procedure Planned Operative Procedure(s): EGD Anesthesia History 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 When Was Last Pacemaker Check QUESTION #4 FULL TEXT: You/Your Family Experience fever (hyperthermia) with Anesthesia Last Oral Intake Last Oral intake: Last Oral Intake NPO since 04:30 11/26/23 06:00 Meds taken in AM with sips of No 11/26/23 06:00 water? 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 Female Yes 11/20/23 11:20 HX of Motion Sickness No 11/20/23 11:20 HX of N/V After Surgery No 11/20/23 11:20 Non-Smoker Yes 11/20/23 11:20 Duration of Surgery greater No 11/20/23 11:20 than 60 minutes Number of Risk Factors 2 11/20/23 11:20 PONV Score Moderate Risk 11/20/23 11:20 Height & Weight Height & Weight: Anesthesia: Height & Weight Height 4 ft 11 in 11/26/23 06:00 Weight: 59 kg 11/26/23 06:00 Body Mass Index (BMI) 26.2 11/26/23 06:00 Respiratory Assessment Respiratory Assessment - burglar alarm superintendent: Respiratory Tract Infection Hx - burglar alarm superintendent Hx Respiratory Tract Infection No 11/20/23 11:20 STOP Sleep Apnea STOP Sleep Apnea - burglar alarm superintendent: STOP Sleep Apnea - burglar alarm superintendent Hx Hypertension Yes: CONTROLLED WITH MEDS 11/20/23 11:20 FOR MOST PART PER PT Hx Sleep Apnea No 11/20/23 11:20 CPAP No 03/10/23 07:46 BIPAP Do you snore loudly (louder No 11/20/23 11:20 than talking or can be heard Do you often feel tired/ No 11/20/23 11:20 fatigued/ sleepy during daytime? Has anyone observed you stop No 11/20/23 11:20 breathing during sleep? STOP Results Negative 11/20/23 11:20 QUESTION #5 FULL TEXT : Do you snore loudly (louder than talking or can be heard through closed doors)? 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 Specify any problems Hx of Preganancy in last 3 No 11/20/23 11:20 Months Nurse Filling Out Transfusion DSCHRIBER 11/20/23 11:20 & Questions: Date: 11/20/23 11/20/23 11:20 Time: 11:23 11/20/23 11:20 Patient unable to answer at this time (ie. confused, unrespo /Reproduction History /Reproductive History - burglar alarm superintendent: /Reproductive Hx- burglar alarm superintendent Hx Now No 11/20/23 11:20 Gestational Age (in weeks): EDC: Hx Hx Para Hx Section SAB No 11/20/23 11:20 Active Medications Active Medications: Current Medications Generic Name Dose Route Start Last Admin Trade Name Freq PRN Reason Stop Dose Admin Lactated Ringer's 1,000 mls @ 15 mls/hr 11/26/23 05:45 11/26/23 06:02 IV 15 mls/hr .Q48H PREM Administration PFSH Medical History Ambulates with cane History of edema Loss of consciousness Gastric reflux History of pain when walking Dysphagia Wears glasses Cancer Thyroid disease High cholesterol DVT (deep venous thrombosis) Blood disorder Injury of back Back pain TIA (transient ischemic attack) History of IBS Shortness of breath on exertion History of stress test History of echocardiogram Normal stress echocardiogram Cardiology follow-up encounter History of irregular heartbeat Chest pain Abdominal pain Essential (primary) hypertension Pure hypercholesterolemia Palpitations Atherosclerotic heart disease of [place] coronary artery without angina pectoris History of deep vein thrombophlebitis of lower extremity Arthritis Dyspnea on exertion Atypical chest pain Factor V deficiency Vertigo History of TIA (transient ischemic attack) GERD (gastroesophageal reflux disease) History of thyroid cancer Chronic back pain Bicuspid aortic valve Hypothyroidism (acquired) Home Medications ?Medication ?Instructions ?Recorded ?Last Taken ?Type tizanidine 4 mg tablet 4 mg PO QHS SPASMS 10/27/20 11/25/23 History acetaminophen 500 mg tablet 1,000 mg PO Q6H PRN Pain 07/31/21 Unknown History polyethylene glycol 3350 17 17 g PO PRN PRN Constipation 08/21/21 Unknown History gram/dose oral powder (Miralax) multivitamin with minerals-folic 2 tab PO DAILY 08/28/21 11/25/23 History acid 200 mcg chewable tablet (Multivitamin Gummies) levothyroxine 50 mcg tablet 75 mcg PO SUMOWEFR 11/20/22 11/26/23 History atenolol 25 mg tablet 12.5 mg PO DAILY 03/05/23 11/26/23 History simvastatin 40 mg tablet 40 mg PO QHS CHOLESTEROL #90 tabs 04/14/23 11/25/23 Rx calcium carbonate 600 mg-vitamin 1 cap PO DAILY 06/11/23 11/25/23 History D3 25 mcg (1,000 unit) capsule warfarin 2 mg tablet 2 mg PO SUMOWEFRSA 06/11/23 11/20/23 History warfarin 3 mg tablet 3 mg PO TUTH BLOOD THINNER 06/11/23 11/20/23 History atenolol 25 mg tablet 25 mg PO QHS Dose was increased. 11/05/23 11/25/23 Rx #135 tabs lidocaine HCl 2 % mucosal solution 1 applic mucous membrane TID PRN 11/14/23 Unknown Rx (Lidocaine Viscous) pain 1 month #600 mL omeprazole 20 mg capsule,delayed 20 mg PO BID #60 caps 11/14/23 11/26/23 Rx release levothyroxine 50 mcg tablet 50 mcg PO TUTHSA 11/20/23 11/25/23 History (Euthyrox) Allergy/AdvReac Type Severity Reaction Status Date / Time Iodinated Contrast Media Allergy Hives Verified 11/26/23 05:41 (Iodinated Contrast Media - IV Dye) levofloxacin AdvReac abdominal Verified 11/26/23 05:41 pain naproxen (From Naprosyn) AdvReac Nausea Verified 11/26/23 05:41 Family History Father , age 65 CAD (coronary artery disease) Arthritis Myocardial infarction CVA (cerebral vascular accident) Mother Arthritis Hypertension Sister Arthritis Aunt Breast cancer Surgical History Hx of colonoscopy S/P insertion of spinal cord stimulator (~05/14/23) Hx of right cataract extraction Hx of left cataract extraction History of appendectomy (~08/2021) History of repair of hiatal hernia (~08/2021) Hx of thumb surgery History of cardiac catheterization History of carpal tunnel release of both wrists History of bilateral cataract extraction History of left heart catheterization (~11/2007) History of thyroidectomy History of cholecystectomy Social History Smoking Status: Never smoker alcohol intake: never substance use type: does not use caffeine: Yes Type: carbonated beverages what type of physical activity do you participate in: none seatbelt use: always do you feel safe at home: Yes Review of Systems (Anesthesia) ROS Narrative System reviewed and no additional complaints, except as documented.
--- NOTE | 2023-11-26 06:42 | HP.PCM_ITS ---
History and Physical Date of Admission: 11/26/23 SHANE CHAMBERS, is a 73 F who presents to the office today for follow up. PMH factor V Leiden (anticoagulation), lumbar flexion s/p kyphoplasty (pain medication). Prior workup: Gastric emptying study 04.16.21 timed at 55.04 minutes (normal 12-56 minutes). Previous study 12.07.14 timed at 32.[address] abd/pel 05.07.21 found liver cysts without lesion; hiatal hernia; retained stool throughout colon. *BGI established 1..22 for epigastric pain and difficulty eating. EGD performed 08.02.21 finding tortuous esophagus; LA Grade A reflux esophagitis; large hiatal hernia; gastric polyps. Biopsy found GE junction inflammation pH Probe results inconclusive for GERD. OV 3 with referral to [facility] for evaluation of hiatal hernia repair. [facility] established 08.21.21 Toupee fundoplication, laparoscopically 09.05.21 for hiatal hernia repair by Dr. Pimentel. [facility] OV 4. and doing well with recovery. OV 5. abdominal pain, likely r/t gastroparesis start Reglan; GERD, doing well s/p fundoplication; dumping syndrome, vasovagal response versus IBS-D versus dumping, food journal. OV 01.23. dumping syndrome, most likely following food journal review; GERD, doing well s/p fundoplication; GERD continue PPI. Stop reglan r/t unknown SE. OV 04.22.22 dumping syndrome, doing well with antidumping diet. History of fundoplication some emesis noted last month, no reflux at this time. Dysphagia, likely dysphagia without odynophagia secondary to esophageal spasm of cri copharyngeus, Flonase and Zyrtec and hyoscyamine. OV 2..23 Feels she is doing well since LV. She has had just one instance of suspected esophageal spasm with one severe episode and one episode which hyoscyamine was very effective. Reports intermittent burning in her esophagus with nausea without emesis on a daily basis, continued use of protonix 40mg and use TUMS PRN. OV 6..23 reports that previously prescribed magic mouthwash has been very helpful. For the last month she has been having small caliber stools with BM occurring 1-2/week without laxative and 3 times/week with use of laxative. Reports she was having colonoscopies every three years because of increased TA polyps of her colon and historically in her esophagus and stomach. Colonoscopy 03.10.23 Diverticulosis in the recto-sigmoid colon and in the sigmoid colon. Three 1 to 2 mm polyps in the sigmoid colon, in the ascending colon and in the cecum, removed with a cold snare. Resected and retrieved. OV 11.14.23 pt reports that she is experiencing a burning in her throat and excessive salvia which precedes vomiting. Pt reports her last bad episode was [place]. Pt reports a bm every 2-3 days, but goes more frequently when she takes the miralax. Pt continues with Pantoprazole. ROS Const Constitutional: Positive for fatigue; No fever(s) or weight change ENT ENT: No difficulty swallowing Gastro GI: Positive for constipation, heartburn and vomiting; No abdominal pain, belching, bloating, change in bowel habits, change in stool character, coffee ground emesis, cramping, diarrhea, difficulty swallowing, feeling full early, excessive flatus, incontinent of stools, Vomiting blood/hematemesis, Blood in stool, loose stools, Black,tarry stools, nausea/dyspepsia, pain with swallowing or other Musc Musculoskeletal: Positive for abnormal gait, joint pain, back pain, joint swelling, muscle cramps, muscle weakness, stiffness, Arthritis, sciatica and leg pain at night Skin Skin: No yellowing of the eye or itchy eyes Neuro Neurology: Positive for abnormal gait Psych Psychiatric: No anxiety and No depression Endo Endocrine: Positive for fatigue; No weight change Aller/Imm Allergy/Immunologic: No itchy eyes Jamaal/Lymp Hematologic/Lymphatic: Positive for easy bleeding and easy bruising Exam Const General: cooperative and comfortable Nutritional Appearance: average body habitus and well nourished [facility] Head: normal to inspection Ears: hearing grossly normal bilaterally Nose: external nose normal Face and sinus: normal facial exam Mouth: oral mucosae normal Throat: posterior oropharynx normal Eyes General: appearance normal, both eyes and all related structures Neck Neck: normal visual inspection Chest Chest palpation & inspection: normal inspection of the chest and normal palpation of entire chest wall Resp Effort & Inspection: normal respiratory effort Auscultation: Bilateral: Clear to Auscultation Cardio Palpation: normal PMI Rate: regular rate Rhythm: regular rhythm GI Inspection: normal to inspection Auscultation: normal bowel sounds Percussion: normal to percussion Palpation: no hepatosplenomegaly Skin General: no rashes or lesions noted Neuro General: patient alert Extrem General: normal to inspection Psych Affect: normal affect Assessment and Plan Assessment and Plan (1) Esophageal spasm: Status: Chronic Plan: I will give her 2%. Since lidocaine solution plus Maalox twice a day to hopefully relieve her esophageal spasms. (2) Dumping syndrome: Status: Chronic Plan: She is doing very well on the antidumping diet. We have her eating only low FODMAP foods. That means she is staying away from fermentable sugars, oligosaccharides, disaccharides, Grains and all sweeteners. she knows that if she does not take these foods and daily basis, then she will not have the dumping syndrome. (3) GERD (gastroesophageal reflux disease): Status: Chronic Qualifiers: Esophagitis presence: with esophagitis Esophagitis bleeding: without hemorrhage Qualified Code(s): K21.00 - Gastro-esophageal reflux disease with esophagitis, without bleeding Plan: She is still being maintained on Protonix 40 mg once a day. Switch Protonix to omeprazole. (4) History of fundoplication: Status: Chronic Plan: She did have episodes of nausea and vomiting last month when she vomited some gastric contents after having multiple episodes of coughing from upper laryngeal issues. She is not having any reflux disease at this time. Switch her pantoprazole to omeprazole 20 mg twice daily (5) Change in bowel habit: Status: Chronic (6) Dysphagia: Status: Inactive Plan: It sounds as if she is having dysphagia without odynophagia secondary to esophageal spasm of the cricopharyngeus. I gave her Flonase 1 spray in each nostril and Zyrtec at night for 1 month. She will also hyoscyamine sublingual to take as needed every 6 hours when she gets the symptoms of upper esophageal dysphagia that I believe is secondary to postnasal drip. (7) Abdominal pain: Status: Acute Plan: We will get a CT scan and check CRP and ESR. Orders: Orders Esophagus Dual Contrast Today K22.4 - Dyskinesia of esophagus Medications: New lidocaine HCl 2% (Lidocaine Viscous) 1 applic mucous membrane TID PRN 600 mL 0RF pain 1 month I have examined the patient and the H&P has been reviewed. There are no clinical changes since date of exam.
--- NOTE | 2023-11-26 06:59 | PCM.POST.ANE ---
Anesthesia: Postop Eval I Current Vital Signs Temperature: 97.1 F Pulse Rate: 79 Blood Pressure: 96/64 Respiratory Rate: 16 Pulse Ox: 96 Oxygen Delivery Method: Room Air Assessment Airway patent: Yes Spontaneous unlabored respirations: Yes Mental status: Asleep nausea: No Vomiting: No Anesthesia Complication: No Fluid Hydration Crystalloid volume administer (ml): 400 Total IV fluid infused: 400 Progress Note Anesthesia document: Postop Eval 1 completed: Yes
--- NOTE | 2023-11-26 07:06 | OP.CCLET_ITS ---
11/26/2023 Adelina Alvarenga [address] [place] [address] Re : Upper GI endoscopy procedure for Anusha Raymundomirtha Dear Dr. Alvarenga This procedure was performed on Sunday, November 26, 2023. My impressions and recommendations are as follows: Impressions : - Non-severe reflux esophagitis with no bleeding. Biopsied. - Large hiatal hernia. - Bilious gastric fluid. - No gross lesions in the first portion of the duodenum. Recommendations : - Discharge patient to home. - Resume previous diet. - Continue present medications. - Await pathology results. My findings are described in the full procedure note, which is enclosed. If I can be of further assistance, please feel free to contact me at . Sincerely, Hao Engle, 11/26/2023 7:05:25 AM This report has been signed electronically.
--- NOTE | 2023-11-26 07:06 | OP.EGD_ITS ---
Patient Name: Anusha Vidal Procedure Date: 11/26/2023 6:34 AM Date of : 1950 Age: 73 Procedure: Upper GI endoscopy Indications: Dysphagia, Heartburn Providers: DO Xavier Goodrich MD: Adelina Alvarenga Medicines: Monitored Anesthesia Care Patient Profile: This is a 73 year old female. Refer to note in patient chart for documentation of history and physical. Patient has symptoms of acute chest pain, acute dyspepsia, acute heartburn and acute nausea. Complications: No immediate complications. Procedure: Pre-Anesthesia Assessment: - Prior to the procedure, a History and Physical was performed, and patient medications and allergies were reviewed. The patient is competent. The risks and benefits of the procedure and the sedation options and risks were discussed with the patient. All questions were answered and informed consent was obtained. Patient identification and proposed procedure were verified by the physician in the pre-procedure area. Mental Status Examination: alert and oriented. Airway Examination: normal oropharyngeal airway and neck mobility. Respiratory Examination: clear to auscultation. CV Examination: normal. Prophylactic Antibiotics: The patient does not require prophylactic antibiotics. Prior Anticoagulants: The patient has taken no anticoagulant or antiplatelet agents. ASA Grade Assessment: II - A patient with mild systemic disease. After reviewing the risks and benefits, the patient was deemed in satisfactory condition to undergo the procedure. The anesthesia plan was to use monitored anesthesia care (MAC). Immediately prior to administration of medications, the patient was re-assessed for adequacy to receive sedatives. The heart rate, respiratory rate, oxygen saturations, blood pressure, adequacy of pulmonary ventilation, and response to care were monitored throughout the procedure. The physical status of the patient was re-assessed after the procedure. After obtaining informed consent, the endoscope was passed under direct vision. Throughout the procedure, the patient's blood pressure, pulse, and oxygen saturations were monitored continuously. The Endoscope was introduced through the mouth, and advanced to the second part of duodenum. The upper GI endoscopy was accomplished without difficulty. The patient tolerated the procedure well. Scope In: 6:46:09 AM Scope Out: 6:50:25 AM Total Procedure Duration Time 0 hours 4 minutes 16 seconds Findings: Non-severe esophagitis with no bleeding was found 35 to 39 cm from the incisors. Biopsies were taken with a cold forceps for histology. Verification of patient identification for the specimen was done. Estimated blood loss was minimal. A large hiatal hernia was present. Bilious fluid was found in the stomach. No gross lesions were noted in the first portion of the duodenum. Impression: - Non-severe reflux esophagitis with no bleeding. Biopsied. - Large hiatal hernia. - Bilious gastric fluid. - No gross lesions in the first portion of the duodenum. Recommendation: - Discharge patient to home. - Resume previous diet. - Continue present medications. - Await pathology results. Procedure Code(s): --- Professional --- 17042, Esophagogastroduodenoscopy, flexible, transoral; with biopsy, single or multiple CPT copyright 2021 [employer]. All rights reserved. The codes documented in this report are preliminary and upon pharmacy graduate intern review may be revised to meet current compliance requirements. Hao Engle DO 11/26/2023 7:05:25 AM This report has been signed electronically. Number of Addenda: 0 Note Initiated On: 11/26/2023 6:34 AM
--- NOTE | 2023-11-26 07:15 | PCM.POSTANE2 ---
Anesthesia Postop Eval I Sum Postop Eval Completion status Anesthesia document: Postop Eval 1 completed: Yes Anesthesia Postop Eval I Summary Anesthesia Postop Eval I Summary: Anesthesia Postop Eval I: Assessment Summary Airway patent Yes 11/26/23 07:14 [email or web address] Spontaneous unlabored Yes 11/26/23 07:14 [email or web address] respirations Mental status Asleep 11/26/23 07:14 [email or web address] nausea No 11/26/23 07:14 [email or web address] Vomiting No 11/26/23 07:14 [email or web address] Anesthesia Postop Eval I: Fluid Summary Crystalloid volume administer 400 11/26/23 07:14 [email or web address] (ml) Colloids volume administered ( ml) Blood Product volume administered (ml) Total IV fluid infused 400 11/26/23 07:14 [email or web address] Anesthesia Postop Eval I: Summary Notes Anesthesia Complication No 11/26/23 07:14 [email or web address] Anesthesia Complication Comment: Post-operative progress note Anesthesia: Postop Eval II Evaluation Mental status: Awake Pain Level: 0 nausea: No Vomiting: No Complications Anesthesia Complication: No
== END 2023-11-26 07:30 | disposition home or self-care (01) ==
LOC: EN 05:21 → AC 05:22
PROVIDERS: PCP Family Medicine; Referring Provider Family Medicine; Visit Provider Internal Medicine Gastroenterology
PROC: 0DJ08ZZ Inspection of Upper Intestinal Tract, Via Natural or Artificial Opening Endoscopic (ICD-10-PCS; CPT 43235; principal; 2023-11-26 06:25)
DX: K21.00 Gastro-esophageal reflux disease with esophagitis, without bleeding (principal); K44.9 Diaphragmatic hernia without obstruction or gangrene; R13.10 Dysphagia, unspecified; D68.51 Activated protein C resistance; Z79.01 Long term (current) use of anticoagulants; K22.4 Dyskinesia of esophagus; K91.1 Postgastric surgery syndromes; Z98.890 Other specified postprocedural states; R19.4 Change in bowel habit; R10.9 Unspecified abdominal pain; R11.14 Bilious vomiting; Z79.899 Other long term (current) drug therapy
CPT/HCPCS: 43239; 88305; 88312; J7120; J2405

== ENCOUNTER → 2023-12-11 | Outpatient (CLI) | payer MEDICARE, OTHER, SELFPAY ==
[2023-12-11 07:33] LABS: Absolute Lymphocyte Count 1.43 X10^3/uL (0.83-4.51); Basophil# 0.04 X10^3/uL; Eosinophils% 2.5 % (0-5); Hematocrit 43.2 % (37-47); Hemoglobin 13.8 g/dL (12.0-15.0); Lymphocyte # 1.43 X10^3/ul (0.83-4.51); Lymphocyte % 36.4 % (19-41); Mean Corp Hgb Conc 31.9 g/dL (32-36); Mean Corpuscular Hgb 30.5 pg (27.0-32.0); Mean Corpuscular Volume 95.6 fL (81-99); Mean Platelet Vol. 9.9 fl (6.2-12.0); Monocyte% 10.2 % (0-10); NRBC Flagged by Analyzer 0 % (0-5); Neutrophil # 1.96 X10^3/uL (2.7-7.7); Neutrophil % 49.9 % (47-70); Platelet Count 241 K/mm3 (150-450); RBC Distribution Width CV 13.6 % (11.6-14.6); RBC Distribution Width SD 47.8 fl (35.1-43.9); Red Blood Count 4.52 M/mm3 (4.2-5.4); White Blood Count 3.9 K/mm3 (4.4-11.0)
[2023-12-11 08:14] LABS: ALB/GLOB Ratio 1.2 RATIO (0.9-2.4); AST(SGOT) 29 U/L (15-37); Alanine Aminotransfer ALT/SGPT 25 U/L (13-56); Albumin, Serum 3.6 g/dL (3.2-5.0); Alkaline Phosphatase 116 U/L (45-117); Anion Gap 5 (5-15); BUN 8 mg/dL (7-18); BUN/Creat Ratio 9.7 RATIO (10-20); Calcium,Total 8.1 mg/dL (8.5-10.1); Chloride 113 mmol/L (98-107); Cholesterol 166 mg/dL (200); Creatinine, Serum 0.82 mg/dL (0.55-1.02); EST Glomerular Filtration Rate 72 mL/min (>60); Est Glom Filt Rate - Afr Amer 87 mL/min (>60); Glucose 100 mg/dL (74-106); High Density Lipoprotein 67 mg/dL; Potassium 3.7 mmol/L (3.5-5.1); Protein, Total 6.6 g/dL (6.4-8.2); Sodium Level 142 mmol/L (136-145); T4 Free Direct 0.92 ng/dL (0.76-1.46); Thyroid Stim Hormone (TSH) 9.94 uIU/mL (0.358-3.74); Triglycerides 126 mg/dL; Very Low Density Lipoprotein 25 mg/dL (5-40)
[2023-12-11 08:21] LABS: Vitamin D,25 Hydroxy 24.6 ng/mL
== END | disposition home or self-care (01) ==
PROVIDERS: PCP Family Medicine; Referring Provider Family Medicine; Visit Provider Family Medicine
DX: E03.9 Hypothyroidism, unspecified (principal); E78.5 Hyperlipidemia, unspecified; E55.9 Vitamin D deficiency, unspecified; Z51.81 Encounter for therapeutic drug level monitoring
CPT/HCPCS: 36415; 80053; 80061; 82306; 84439; 84443; 84481; 85025

== ENCOUNTER 2024-03-22 14:09 | Emergency (ER) | payer MEDICARE, OTHER, SELFPAY ==
[2024-03-22] VITALS (7 sets, daily range): BP systolic 131–178; BP diastolic 65–97; PULSE 70–89; RESP 14–19; TEMP 35.8–37.2; O2SAT 96–100; BMI 26.4
[2024-03-22 14:35] LABS: Bacteria 0 SEEN /hpf (None Seen); Mucous, Urine 0 SEEN /hpf (<or=2+); White Blood Cells 0 SEEN /hpf (0-5)
[2024-03-22 14:41] LABS: Color, Urine Red (Yellow); Glucose, Dipstick Normal (Normal); Ketone-Dipstick Negative (Negative); Leukocyte Esterase-Dipstick Negative /ul (Negative); Nitrite-Dipstick Negative (Negative); Occult Blood-Urine 250 /ul (Negative); Protein-Dipstick 500 mg/dl (Negative); Urine Bilirubin Dipstick Negative (Negative); Urine Clarity Turbid (Clear); Urine Urobilinogen Normal (Normal); Urine pH 6.5 (5.0 - 8.0)
[2024-03-22 14:47] LABS: Red Blood Cells-Urine > 100 SEEN /hpf (0-5); Squamous Epithelial Cells - UA 50-100 SEEN /hpf (5-10)
[2024-03-22 15:34] LABS: International Normalized Ratio 2.2; Prothrombin Time (Protime)PT. 23.9 SECONDS (11.7-14.9)
[2024-03-22 15:44] LABS: Anion Gap 5 (5-15); BUN 9 mg/dL (7-18); Calcium,Total 8.4 mg/dL (8.5-10.1); Chloride 114 mmol/L (98-107); Creatinine, Serum 0.75 mg/dL (0.55-1.02); EST Glomerular Filtration Rate 80 mL/min (>60); Est Glom Filt Rate - Afr Amer 97 mL/min (>60); Estimated Creatinine Clearance 50.49 ml/min; Glucose 96 mg/dL (74-106); Potassium 4.1 mmol/L (3.5-5.1); Sodium Level 142 mmol/L (136-145)
--- NOTE | 2024-03-22 15:55 | CT_ITS ---
STUDY: CT ABDOMEN AND PELVIS WITH CONTRAST REASON FOR EXAM: Female, 74 years old. Painless gross hematuria RADIATION DOSAGE (If Supplied By Facility): CTDIvol = ( 11.84 ) mGy, DLP = ( 491.77 ) mGycm TECHNIQUE: Transaxial images were obtained from the dome of the diaphragm to the symphysis pubis without oral contrast. IV 100mL Isovue-300 was administered. Sagittal and coronal images were reconstructed. Individualized dose optimization techniques were used for this CT. COMPARISON: None. FINDINGS: The visualized lung bases are unremarkable. The visualized portions of the heart are within normal limits. Up to 1 cm cysts in the liver. Normal gallbladder and extrahepatic biliary system. Normal spleen. Normal pancreas. Normal bilateral adrenal glands. Normal right kidney. Normal left kidney. Possible 3 mm left mid ureteral stone. Hiatal hernia. Normal small intestine. Normal colon. The appendix is visualized and appears normal. Normal abdominal aorta. Normal inferior vena cava. Normal retroperitoneum. Normal urinary bladder. Normal abdominal wall. Mild compression of T11 with vertebral plasty. Stimulator electrodes in the lower thoracic vertebral region. CT/Abdomen/Pelvis W IV Cont ONLY IMPRESSION: Hepatic cysts. Possible mid left ureteral stone. Small hiatal hernia. Electronically Signed: Rafael Glover DO at 18:59 EDT ,
--- NOTE | 2024-03-22 15:57 | EDS_ITS ---
HPI History of Present Illness Chief Complaint: Complaint Detail of Chief Complaint: Gross hematuria Informant: patient Onset/Context/Timing Onset: Today Context: Sudden Onset Timing: Continuous Quality: Gross hematuria Location: Current Severity: Moderate Maximum Severity: Moderate Worsened by: Possibly due to the fact that patient is on anticoagulant Relieved by: Nothing Associated Symptoms Associated Symptoms: Nothing Narrative Narrative: Patient is a 74-year-old woman. She is on warfarin. Her level has not been checked in 3 to 4 weeks. She states it was therapeutic 3 to 4 weeks ago. She has not been on an antibiotic in the last couple of weeks. She denies bruising easily. She denies fever, chills night sweats. Denies nausea or vomiting. She states she has urgency to go. She did note clots last time she urinated. 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 Patient denies cardiac or respiratory symptoms. Patient denies central low back pain or flank pain. Prior similar symptoms: Yes Recent Illness/Hospitalization: No PFSH PFSH Medical History Ambulates with cane History of edema Loss of consciousness Gastric reflux History of pain when walking Dysphagia Wears glasses Cancer Thyroid disease High cholesterol DVT (deep venous thrombosis) Blood disorder Injury of back Back pain TIA (transient ischemic attack) History of IBS Shortness of breath on exertion History of stress test History of echocardiogram Normal stress echocardiogram Cardiology follow-up encounter History of irregular heartbeat Chest pain Abdominal pain Essential (primary) hypertension Pure hypercholesterolemia Palpitations Atherosclerotic heart disease of [place] coronary artery without angina pectoris History of deep vein thrombophlebitis of lower extremity Arthritis Dyspnea on exertion Atypical chest pain Factor V deficiency Vertigo History of TIA (transient ischemic attack) GERD (gastroesophageal reflux disease) History of thyroid cancer Chronic back pain Bicuspid aortic valve Hypothyroidism (acquired) Home Medications ?Medication ?Instructions ?Recorded ?Last Taken ?Type tizanidine 4 mg tablet 4 mg PO QHS SPASMS 10/27/20 11/25/23 History polyethylene glycol 3350 17 17 g PO PRN PRN Constipation 08/21/21 Unknown History gram/dose oral powder (Miralax) multivitamin with minerals-folic 2 tab PO DAILY 08/28/21 11/25/23 History acid 200 mcg chewable tablet (Multivitamin Gummies) atenolol 25 mg tablet 12.5 mg PO DAILY 03/05/23 11/26/23 History simvastatin 40 mg tablet 40 mg PO QHS CHOLESTEROL #90 tabs 04/14/23 11/25/23 Rx calcium 600 mg (as 1 cap PO DAILY 06/11/23 11/25/23 History carbonate)-vitamin D3 25 mcg (1,000 unit) capsule warfarin 2 mg tablet 2 mg PO SUMOWEFRSA 06/11/23 11/20/23 History warfarin 3 mg tablet 3 mg PO TUTH BLOOD THINNER 06/11/23 11/20/23 History atenolol 25 mg tablet 25 mg PO QHS Dose was increased. 11/05/23 11/25/23 Rx #135 tabs acetaminophen 500 mg tablet 500 mg PO Q6H PRN Pain 01/30/24 Unknown History levothyroxine 75 mcg tablet 75 mcg PO QDAY 01/30/24 Unknown History omeprazole 20 mg capsule,delayed 20 mg PO BID #60 caps 03/10/24 Unknown Rx release Allergy/AdvReac Type Severity Reaction Status Date / Time Iodinated Contrast Media Allergy Hives Verified 01/30/24 09:46 (Iodinated Contrast Media - IV Dye) levofloxacin AdvReac abdominal Verified 01/30/24 09:46 pain naproxen (From Naprosyn) AdvReac Nausea Verified 01/30/24 09:46 Family History Father , age 65 CAD (coronary artery disease) Arthritis Myocardial infarction CVA (cerebral vascular accident) Mother Arthritis Hypertension Sister Arthritis Aunt Breast cancer Surgical History Hx of colonoscopy S/P insertion of spinal cord stimulator (~05/14/23) Hx of right cataract extraction Hx of left cataract extraction History of appendectomy (~08/2021) History of repair of hiatal hernia (~08/2021) Hx of thumb surgery History of cardiac catheterization History of carpal tunnel release of both wrists History of bilateral cataract extraction History of left heart catheterization (~11/2007) History of thyroidectomy History of cholecystectomy Social History Smoking Status: Never smoker alcohol intake: never substance use type: does not use caffeine: Yes Type: carbonated beverages what type of physical activity do you participate in: none seatbelt use: always do you feel safe at home: Yes ROS ROS ED Constitutional Constitutional ED: Denies chills, fever(s), subjective or sweats Eyes Eyes: Denies blurry vision or change in vision Cardiovascular Cardiovascular: Denies chest pain or palpitations Respiratory/Chest Respiratory/Chest: Denies cough, dyspnea or dyspnea on exertion Gastrointestinal Gastrointestinal: Denies abdominal pain, melena, nausea or vomiting Genitourinary Genitourinary ED: Reports hematuria; Denies dysuria or urinary frequency Musculoskeletal Musculoskeletal: Denies arthralgias, back pain or myalgias Integumentary Denies rash Neurologic Neurologic: Denies paresthesias or weakness Hematologic/Lymphatic Hematologic/Lymphatic: Reports systems reviewed and no addt'l complaints, except as documented EXAM Physical Exam Const Vital Signs: 03/22/24 14:09 03/22/24 14:11 03/22/24 16:25 Temperature 98 F 98.9 F 98.1 F Temperature Source Temporal Oral Temporal Pulse Rate 76 89 84 Respiratory Rate 16 14 18 Blood Pressure 178/97 H 132/65 H 145/82 H Blood Pressure Mean 124 87 103 Pulse Ox 100 97 100 Oxygen Delivery Method Room Air Room Air Room Air 03/22/24 17:00 03/22/24 18:00 Temperature 97.8 F 98.4 F Temperature Source Temporal Oral Pulse Rate 81 71 Respiratory Rate 16 19 H Blood Pressure 152/81 H 145/79 H Blood Pressure Mean 104 101 Pulse Ox 100 100 Oxygen Delivery Method Room Air Room Air Positive well nourished and well developed General Appearance ED: well developed and NAD; Negative for pallor HEENT Reports moist mucous membranes HEENT Narrative: Atraumatic and normocephalic. Ears normal. Nares patent. Eyes PERRL and EOMs intact bilaterally General Eye ED: Negative for pale conjunctiva or scleral icterus Neck no lymphadenopathy, supple and no JVD Chest Wall inspection of chest normal and palpation of chest normal Resp normal respiratory effort and clear to auscultation bilaterally Cardio regular rate, regular rhythm, S1 normal heart sound, S2 normal heart sound and no murmurs GI normal to inspection, nondistended, normoactive bowel sounds, non-tender, non- distended and no masses; Negative for hepatosplenomegaly Back/Spine no CVA tenderness Cervical Spine: Negative for cervical spine tenderness Thoracic Spine / Upper Back: Negative for thoracic spinal tenderness Extremity normal to inspection Neuro oriented x3, CN's II-XII intact bilaterally and no sensory deficits noted Sensorium / Orientation: alert Motor Exam: strength 5/5 throughout Psych mental status grossly normal Skin no rashes or lesions noted, no wounds and skin turgor normal General Skin Exam: elasticity normal; Negative for jaundice or pallor MDM MDM MDM Narrative Medical decision making narrative: Differential diagnosis would be hemorrhagic cystitis, bladder versus renal ahmet plasm, Coumadin-induced bleeding because of coagulopathy. UA was obtained. UA reveals hematuria with no evidence of infection. In light of this PT/INR and BMP were obtained. BMP reveals normal renal function. PT/INR is 2.2. This would not explain her gross hematuria. For this reason a CT of the abdomen pelvis with IV contrast was ordered. History & Record Review Additional record(s) reviewed:: Prior ED visit and Prior labs Lab Data Attestation: I reviewed the patient's lab results. Labs: Laboratory Results - last 24 hr 03/22/24 03/22/24 14:28 15:08 PT 23.9 H INR 2.2 Sodium 142 Potassium 4.1 Chloride 114 H Carbon Dioxide 23.0 Anion Gap 5 BUN 9 Creatinine 0.75 Estim Creat Clear Calc 50.49 Est GFR (MDRD) Af Amer 97 Est GFR (MDRD) Non-Af 80 BUN/Creatinine Ratio 12.0 Glucose 96 Calcium 8.4 L Urine Color Red Urine Clarity Turbid Urine pH 6.5 Ur Specific [place] 1.020 Urine Protein 500 H Urine Glucose (UA) Normal Urine Ketones Negative Urine Occult Blood 250 H Urine Nitrite Negative Urine Bilirubin Negative Urine Urobilinogen Normal Ur Leukocyte Esterase Negative Urine RBC > 100 SEEN Urine WBC 0 SEEN Ur Squamous Epith Cells 50-100 SEEN Urine Bacteria 0 SEEN Urine Mucus 0 SEEN Radiography Diagnostic Testing: Clinical Impression(s) from Imaging Studies Abdomen/Pelvis CT 03/22/24 15:55 IMPRESSION: Hepatic cysts. Possible mid left ureteral stone. Small hiatal hernia. Electronically Signed: Rafael Glover DO at 18:59 EDT Reading Location ID and State: [facility] / [place] Tel [phone], Service support , CT of the abdomen pelvis with IV contrast was reviewed by me at 1743. There is no obvious abdomen of the kidneys or bladder per my evaluation. Awaiting formal read by radiologist. Management Discussion w/another healthcare provider: Watch Crystal Molder (Spoke with urologist. Recommended admission with three-way and continuous irrigation. Patient and were made aware.) Treatment and Re-Evaluation :: CT was interpreted radiologist as negative. Dr. Temitope Murcia with patient's patient does not have a urologist. Discharge Plan Triage Chief Complaint: Complaint ED Provider: Cole Chingo Dx/Rx/DC Orders Clinical Impression: Gross hematuria, Factor V deficiency, Pure hypercholesterolemia, Essential (primary) hypertension, Anticoagulant long-term use, History of CAD (coronary artery disease) Prescriptions: No Action polyethylene glycol 3350 [Miralax] 17 gram/dose powder 17 g PO PRN PRN (Reason: Constipation) calcium carbonate-vitamin D3 600 mg-25 mcg (1,000 unit) capsule 1 cap PO DAILY levothyroxine 75 mcg tablet 75 mcg PO QDAY tizanidine 4 mg tablet 4 mg PO QHS warfarin 3 mg tablet 3 mg PO TUTH Rx Instructions: Managed by PCP warfarin 2 mg tablet 2 mg PO SUMOWEFRSA Rx Instructions: Managed by PCP acetaminophen 500 mg tablet 500 mg PO Q6H PRN (Reason: Pain) multivit with min-folic acid [Multivitamin Gummies] 200 mcg Tablet,Chewable 2 tab PO DAILY atenolol 25 mg tablet 12.5 mg PO DAILY simvastatin 40 mg tablet 40 mg PO QHS Qty: 90 3RF atenolol 25 mg tablet 25 mg PO QHS Qty: 135 3RF Rx Instructions: 25 mg PO one half tab in the am and one tab in the pm; omeprazole 20 mg capsule,delayed release(DR/EC) 20 mg PO BID Qty: 60 0RF Primary Care Provider: Adelina Alvarenga Referrals: Adelina Alvarenga DO [Primary Care Provider] - Print Language: Albanian Disposition Disposition: Acute Care Hospital [facility]
[2024-03-22] MEDS: DiphenhydrAMINE 50 MG/ML Syringe IV (16:10)
[2024-03-22 21:10] LABS: Absolute Lymphocyte Count 0.41 X10^3/uL (0.83-4.51); Absolute Neutrophil Count 7.3 X10^3/uL (2.0-7.7); Basophil# 0.02 X10^3/uL; Basophil% 0.3 % (0-1); Hematocrit 39.7 % (37-47); Hemoglobin 13.2 g/dL (12.0-15.0); Lymphocyte # 0.41 X10^3/ul (0.83-4.51); Lymphocyte % 5.2 % (19-41); Mean Corp Hgb Conc 33.2 g/dL (32-36); Mean Corpuscular Hgb 30.8 pg (27.0-32.0); Mean Corpuscular Volume 92.5 fL (81-99); Mean Platelet Vol. 9.9 fl (6.2-12.0); Monocyte% 1.3 % (0-10); NRBC Flagged by Analyzer 0 % (0-5); Neutrophil # 7.33 X10^3/uL (2.7-7.7); Neutrophil % 92.7 % (47-70); POSITIVE DIFFERENTIAL YES; Platelet Count 206 K/mm3 (150-450); RBC Distribution Width CV 14.6 % (11.6-14.6); RBC Distribution Width SD 49.3 fl (35.1-43.9); Red Blood Count 4.29 M/mm3 (4.2-5.4); White Blood Count 7.9 K/mm3 (4.4-11.0)
[2024-03-22] MEDS: Cephalexin 500 MG Capsule PO (21:43)
== END 2024-03-22 21:50 | disposition home or self-care (01) ==
LOC: ED 19:51 → MS3 21:19
PROVIDERS: Emergency Provider Emergency Medicine; PCP Family Medicine; Visit Provider Emergency Medicine
DX: R31.0 Gross hematuria (principal); D68.2 Hereditary deficiency of other clotting factors; I25.10 Atherosclerotic heart disease of native coronary artery without angina pectoris; Z79.01 Long term (current) use of anticoagulants; I10 Essential (primary) hypertension; E78.00 Pure hypercholesterolemia, unspecified; Z86.73 Personal history of transient ischemic attack (TIA), and cerebral infarction without residual deficits; Z79.899 Other long term (current) drug therapy; Z79.890 Hormone replacement therapy; K21.9 Gastro-esophageal reflux disease without esophagitis; Z98.41 Cataract extraction status, right eye; Z98.42 Cataract extraction status, left eye; Z90.49 Acquired absence of other specified parts of digestive tract
CPT/HCPCS: 74177; 80048; 81001; 85025; 85610; 87077; 87086; 87088; 87186; 96374; 96375; 99282; J7030; Q9967; A4216

== ENCOUNTER → 2024-04-13 | Outpatient (CLI) | payer MEDICARE, OTHER, SELFPAY ==
--- NOTE | 2024-04-13 | CYSPIN_PTH ---
PATIENT: SHANE CHAMBERS LOC: [facility] U#:[id number] AGE/SX: 74/F ROOM: RE04/13/[address]: Dr. Temitope Murcia MD : [id number] BED: DIS: 04/13/2024 SPEC #: [id number] RECD: 04/13/24 17:45 STATUS: SANDY REDorothy #: [id number] MEHDI: 04/13/24 00:[address]: Temitope Murcia DEPT: CYTOLOGY RECD BY: Jeff Baron ENTERED: 04/14/24 07:34 SP TYPE: CYSPIN FL OTHR DR: Dr. Adelina Alvarenga, DO Tissues: Urine Procedures: Pap Stain (control) Special Stain Group II Cytospin Fluid HEADER OPERATION: Not noted PRE-OP DIAGNOSIS: Hematuria TISSUE SUBMITTED: Urine for cytology DIAGNOSIS CYTOLOGY Urine for cytology (cytospin): Negative for high grade urothelial carcinoma (Z[place]nab Category System II). Acute inflammation. See comment. AM. 04/14/2024 COMMENT The [place]nab System for urine cytology diagnostic categorization was used in the evaluation of this case. CYTOLOGY STUDY Slides are reviewed. CYTOLOGY GROSS Received is 30 ml of light-yellow cloudy fluid labeled with the patient's name and and designated per the requisition as urine. Submitted for cytology preparation. Mr 04/14/2024 TC:2 CPT: 49172
[2024-04-13 17:47] LABS: Cytology, Body Fluid / CSF SEE PATHOLOGY REPORT
== END | disposition home or self-care (01) ==
PROVIDERS: PCP Family Medicine; Referring Provider Urology; Visit Provider Urology
DX: R31.9 Hematuria, unspecified (principal)
CPT/HCPCS: 88108; 88313

== ENCOUNTER 2024-06-23 08:06 | Outpatient (RCR) | payer MEDICARE, OTHER, SELFPAY ==
[2024-06-23 08:40] LABS: International Normalized Ratio 1.4; Prothrombin Time (Protime)PT. 17.1 SECONDS (11.7-14.9)
== END 2024-06-23 18:00 | disposition home or self-care (01) ==
LOC: LAB 08:06
PROVIDERS: PCP Family Medicine; Referring Provider Family Medicine; Visit Provider Family Medicine
DX: D68.2 Hereditary deficiency of other clotting factors (principal)

== ENCOUNTER → 2024-07-01 | Outpatient (CLI) | payer MEDICARE, OTHER, SELFPAY ==
[2024-07-01 16:36] LABS: Absolute Lymphocyte Count 1.76 X10^3/uL (0.83-4.51); Absolute Neutrophil Count 2.6 X10^3/uL (2.0-7.7); Basophil# 0.05 X10^3/uL; Hematocrit 40.3 % (37-47); Hemoglobin 13.2 g/dL (12.0-15.0); Lymphocyte # 1.76 X10^3/ul (0.83-4.51); Mean Corp Hgb Conc 32.8 g/dL (32-36); Mean Corpuscular Hgb 30.8 pg (27.0-32.0); Mean Corpuscular Volume 93.9 fL (81-99); Mean Platelet Vol. 9.8 fl (6.2-12.0); Monocyte# 0.36 X10^3/uL; Monocyte% 7.2 % (0-10); NRBC Flagged by Analyzer 0 % (0-5); Neutrophil # 2.64 X10^3/uL (2.7-7.7); Neutrophil % 52.4 % (47-70); Platelet Count 393 K/mm3 (150-450); RBC Distribution Width CV 13.2 % (11.6-14.6); RBC Distribution Width SD 45.6 fl (35.1-43.9); Red Blood Count 4.29 M/mm3 (4.2-5.4)
[2024-07-01 17:59] LABS: Vitamin D,25 Hydroxy 33.5 ng/mL
[2024-07-01 21:08] LABS: ALB/GLOB Ratio 1.1 RATIO (0.9-2.4); AST(SGOT) 30 U/L (15-37); Alanine Aminotransfer ALT/SGPT 25 U/L (13-56); Albumin, Serum 3.4 g/dL (3.2-5.0); Alkaline Phosphatase 103 U/L (45-117); Anion Gap 7 (5-15); BUN 14 mg/dL (7-18); BUN/Creat Ratio 16.7 RATIO (10-20); Calcium,Total 8.7 mg/dL (8.5-10.1); Chloride 110 mmol/L (98-107); Creatinine, Serum 0.84 mg/dL (0.55-1.02); EST Glomerular Filtration Rate 71 mL/min (>60); Est Glom Filt Rate - Afr Amer 86 mL/min (>60); Free T3 2.3 pg/mL (2.18-3.98); Glucose 96 mg/dL (74-106); Potassium 4.4 mmol/L (3.5-5.1); Protein, Total 6.4 g/dL (6.4-8.2); Sodium Level 142 mmol/L (136-145); T4 Free Direct 1.39 ng/dL (0.76-1.46); Thyroid Stim Hormone (TSH) 0.585 uIU/mL (0.358-3.740)
== END | disposition home or self-care (01) ==
LOC: BFHLAB 09:06 → LAB.FUTURE 14:44 → LAB 15:30
PROVIDERS: PCP Family Medicine; Referring Provider Family Medicine; Visit Provider Family Medicine
DX: Z79.01 Long term (current) use of anticoagulants (principal); E03.9 Hypothyroidism, unspecified; E55.9 Vitamin D deficiency, unspecified; Z51.81 Encounter for therapeutic drug level monitoring
CPT/HCPCS: 36415; 80053; 82306; 83970; 84439; 84443; 84481; 85025

== ENCOUNTER → 2024-07-13 | Outpatient (CLI) | payer MEDICARE, OTHER, SELFPAY ==
--- NOTE | 2024-07-13 15:35 | RAD_ITS ---
PROCEDURE: CERV SPINE 2 OR 3 VIEWS REASON FOR EXAM: Spondylosis without myelopathy. TECHNIQUE: 3 views of the cervical spine. COMPARISON: 10/17/2021. FINDINGS: Cervical vertebral bodies are seen to the upper thoracic level on the sagittal view. There is mild levoscoliosis of the mid to upper cervical spine. Cervical vertebral bodies maintain a normal height. There is mild anterolisthesis of C4-C5 and mild retrolisthesis of C5-C6 and C6-C7 on a chronic basis. Multilevel degenerative changes are present which are greatest from C5-C7 with severe disc space narrowing and endplate spurring. No acute fracture or subluxation is present. Prevertebral soft tissues are unremarkable. Odontoid process is intact. Atlantodental interval is intact with degenerative changes. Lateral masses align. RAD/Cerv Spine 2 or 3 Views IMPRESSION: 1. No acute cervical spine fracture. 2. Multilevel degenerative changes greatest from C5-C7 which has progressed at C6-C7. Reading Location: [facility]
--- NOTE | 2024-07-13 15:35 | RAD_ITS ---
EXAM: XR Thoracic Spine, 2 Views CLINICAL INDICATION: TECHNIQUE: Frontal and lateral views of the thoracic spine. COMPARISON: No relevant prior studies available. FINDINGS: VERTEBRAE: Kyphotic curvature of the thoracic spine. Vertebroplasty of the midthoracic vertebrae. Degenerative disc disease and facet arthropathy throughout the thoracic spine. No acute fracture. DISC SPACES: See above. SOFT TISSUES: Unremarkable. RAD/Thoracic Spine 2 Views IMPRESSION: 1. No acute fracture. 2. Degenerative changes thoracic spine as described. Reading Location: [facility]
== END | disposition home or self-care (01) ==
LOC: RAD 15:30
PROVIDERS: PCP Family Medicine; Referring Provider Anesthesiology Pain Medicine; Visit Provider Anesthesiology Pain Medicine
DX: M47.812 Spondylosis without myelopathy or radiculopathy, cervical region (principal); M47.814 Spondylosis without myelopathy or radiculopathy, thoracic region
CPT/HCPCS: 72040; 72070

== ENCOUNTER → 2024-08-19 | Outpatient (CLI) | payer MEDICARE, OTHER, SELFPAY ==
--- NOTE | 2024-08-19 09:34 | BI_ITS ---
EXAM: SCRN MAMM (CAD)W/BRAYAN BILAT DATE: 08/19/2024 CLINICAL HISTORY: F, Age 74 y/o , SCREENING. Aunts with breast cancer. Remote right excisional breast biopsy. BREAST CANCER RISK ASSESSMENT: Not assessed. TECHNIQUE: Bilateral screening digital breast tomosynthesis with 2D and 3D images. Computer aided detection. COMPARISON: Prior exam(s) dating back to August 19, 2023.. FINDINGS: Bilateral Breast Mammographic Findings: No significant masses, calcifications or other abnormalities are identified. TISSUE DENSITY: The breast tissue is heterogenously dense, which may obscure small masses. No suspicious masses, areas of developing architectural distortion, or suspicious calcifications. There has been no significant interval change. BI/SCRN MAMM (CAD)W/BRAYAN BILAT IMPRESSION: Right Breast: BIRADS 1 NEGATIVE. Left Breast: BIRADS 1 NEGATIVE. OVERALL FINAL ASSESSMENT: BIRADS 1 NEGATIVE RECOMMENDATION: ROUTINE ANNUAL FOLLOW-UP Bilateral in 1 Year Normal interval followup mammograms are recommended in 12 months. A letter with findings and recommendations will be mailed to the patient. Reading Location: [place] [id number]
== END | disposition home or self-care (01) ==
LOC: OPBI 09:32
PROVIDERS: PCP Family Medicine; Referring Provider Family Medicine; Visit Provider Family Medicine
DX: Z12.31 Encounter for screening mammogram for malignant neoplasm of breast (principal)
CPT/HCPCS: 77063; 77067

== ENCOUNTER → 2025-01-20 | Outpatient (CLI) | payer MEDICARE, OTHER, SELFPAY ==
--- OUTSIDE RECORDS SUMMARY | 2025-01-20 06:11 | XMS RPT_ITS | CCD ---
Author Organization [facility] Providers Care [employer] Lab[employer] Name Role Phone LISA Casper, Cherry Carpio Unavailable Unavailkelton Harrington RN, Erika Perkins Unavailable Unavailable Cinthia Arteaga Unavailable Unavailable Yina Hayes Unavailable Unavailable LISA Casper, Cherry Carpio Unavailable Unavailkelton Harrington RN, Erika A Unavailable Unavailable LAMINE Brandt, Martina Carpio Unavailable [phone] Freddy, Yina Y Unavailable Unavailable JENLUAN Admitting Unavailable JENLUAN BOWMAN Attending Unavailable ADELINA ALVARENGA D.O Referring Unavailable JENLUAN BOWMAN Primary Care Unavailable ADELINA ALVARENGA D.O Consulting Unavailable PROVIDER, UNKNOWN Consulting Unavailable Cinthia Arteaga Unavailable Unavailable LISA Casper, Cherry Carpio Unavailable UnavailDr. Adelina Uribe Primary Care Provider Dr. Adelina Alvarenga Referring Provider 1([facility])[phone] Juliette Trejo Attending Provider [phone] Dr. Juliette Trejo Other Provider Dr. Felipe Pimentel Attending Provider Dr. Felipe Pimentel Referring Provider Dr. Felipe Pimentel Other Provider Dr. Jus Heck Other Provider Dr. Felipe Pimentel Admit Provider Dr. Omar Wilson Attending Provider Dr. Jus Heck Referring Provider Dr. Adelina Alvarenga Primary Care Provider [phone] Dr. Adelina Alvarenga Referring Provider Friend, Dr. Bui Attending Provider Dr. Harry Hamilton Attending Provider Colette, Dr. Sahu Primary Care Provider Loren, Dr. Wang Attending Provider Colette, Dr. Sahu Referring Provider Friend, Dr. Bui Attending Provider Colette, Dr. Sahu Primary Care Provider Loren, Dr. Wang Attending Provider Loren, Dr. Wang Referring Provider Loren, Dr. Wang Other Provider Umang, Dr. Luu Other Provider Colette, Dr. Sahu Primary Care Provider Colette, Dr. Sahu [facility] Primary Care Provider Devanteys, Dr. Sahu Referring Provider Friend, Dr. Bui Attending Provider Malys, Dr. Sahu Primary Care Provider Devanteys, Dr. Sahu Referring Provider Friend, Dr. Bui Attending Provider Malys, Dr. Sahu [facility] Referring Provider Friend, Dr. Bui Attending Provider Devanteys, Dr. Sahu Primary Care Provider Devanteys, Dr. Sahu Referring Provider Friend, Dr. Bui Attending Provider [phone] Devanteys, Dr. Sahu Primary Care Provider [phone] Antonio Graves Attending Provider Colette, Dr. Sahu Referring Provider Friend, Dr. Bui Attending Provider Roof MATERIAL HAULER, MATERIAL HAULER-C [place] Parada Attending Provider Colette, Dr. Sahu Primary Care Provider [phone] Colette, Dr. Sahu Referring Provider Friend, Dr. Bui Attending Provider [phone] Friend, Dr. Bui Other Provider [phone] Colette, Dr. Sahu Primary Care Provider Colette, Dr. Sahu Referring Provider Roof MATERIAL HAULER, MATERIAL HAULERJuliana Parada Attending Provider Friend, Dr. Bui Attending Provider [phone] Friend, Dr. Bui Other Provider 1([phone] COLETTE ROBLEDO, DR SAHU A Primary Care Physician COLETTE DO, DR ADELINA Perkins Primary Care Unavailable MARIO MENSAH DO Attending Unavailable MARIO MENSAH DO Referring Unavailable COLETTE ROBLEDO, DR ADELINA Perkins Primary Care Unavailable MARISA VITALE-NATALIIA, STUART Goncalves Consulting Emmanuel [place] APRN-PUBLICATIONS EDITOR, STUART Goncalves Attending MARIO Silva DO Admitting Unavailable Dr. Adelina Alvarenga Primary Care Provider [phone] Dr. Adelina Alvarenga Referring Provider Dr. Antonio Graves Attending Provider Dr. Mario Mensah Referring Provider Roof MATERIAL HAULER, MATERIAL HAULER-Ozzy Parada Attending Provider Roof MATERIAL HAULER, MATERIAL HAULER-C Washington Parada Referring Provider Roof MATERIAL HAULER, MATERIAL HAULER-Ozzy Parada Other Provider Dr. Omar Wilson Attending Provider Dr. Adelina Alvarenga Primary Care Provider Dr. Adelina Alvarenga Referring Provider 1([facility])[phone] Roof MATERIAL HAULER, MATERIAL HAULER-C [place] Parada Attending Provider Roof MATERIAL HAULER, MATERIAL HAULER-C [place] Parada Referring Provider Roof MATERIAL HAULER, MATERIAL HAULER-Ozzy Parada Other Provider Steve, Dr. Nelson Attending Provider 1([facility])[phone] Malys DO, Adelina A Primary Care Provider 1([facility])[phone] MONFARED, AGATHA Attending Unavailable SELF Referring Unavailable MALYS, ADELINA A Primary Care Unavailable MONFARED, AGATHA Attending Unavailable MONFARED, AGATHA Referring Unavailable MALYS, ADELINA A Primary Care Unavailable MONFARED, AGATHA Attending Unavailable PAPOURLUAN ENNIS Referring Unavail able MALYS, ADELINA A Primary Care Unavailable PAPOURASLUAN Attending Unavail able MALYS, ADELINA A Primary Care Unavailable Unavailable Primary Care Provider Unavailabl e Colette DO, Adelina Primary Care Provider 1([facility])[phone] Colette DO, Dr. Sahu Primary Care Provider 1([facility])[phone] Colette ROBLEDO, Dr. Sahu Referring Provider 1([facility])[phone] Oniel ROBLEDO, Dr. Bui Attending Provider Colette DO, Dr. Sahu Attending Provider 1([facility])[phone] Romeo ROSARIO, Dr. Galan Attending Provider Dr. Adama Walters MD Referring Provider 1([facility])[phone] Eben ROSARIO, Dr. Delgado Attending Provider Malys DO, Adelina Primary Care Provider 1([facility])[phone] JOHNNIE WESLEY A Attending Unavailable JOHNNIE, WESLEY A Referring Unavailable MALYS, ADELINA Primary Care Unavailable JOHNNIE, WESLEY A Attending Unavailable JULIETTE TREJO Referring Unavailable MALYS, ADELINA Primary Care Unavailable MARIAA WORRELL Attending Unavailable MALYS, ADELINA Referring Unavailable MALYS, ADELINA Primary Care Unavailable JOHNNIE, WESLEY A Attending Unavailable MALYS, ADELINA Referring Unavailable MALYS, ADELINA Primary Care Unavailable JOHNNIE, WESLEY A Referring Unavailable LATOYA PRECIADO Attending Unavailable MALYS, ADELINA Primary Care Unavailable ANAID, MARIAA D Attending Unavailable MALYS, ADELINA Referring Unavailable MALYS, ADELINA Primary Care Unavailable JOHNNIE, WESLEY A Referring Unavailable LATOYA PRECIADO Attending Unavailable MALYS, ADELINA Primary Care Unavailable JOHNNIE, WESLEY A Referring Unavailable TYSON, ANTON A Attending Unavailable MALYS, ADELINA Referring Unavailable JOHNNIE, WESLEY A Admitting Unavailable JOHNNIE, WESLEY A Attending Unavailable MALYS, ADELINA Primary Care Unavailable CONSULT, CARDIOLOGY Consulting Unavailable MALYS, ADELINA Primary Care Unavailable JOHNNIE, WESLEY A Referring Unavailable TYSON, ANTON A Attending Unavailable JOHNNIE, WESLEY A Attending Unavailable FRIEND, JULIETTE Referring Unavailable MALYS, ADELINA Primary Care Unavailable JOHNNIE, WESLEY A Referring Unavailable MALYS, ADELINA Primary Care Unavailable Wyneski, Temitope Admitting Unavailable Malys, Adelina Primary Care Unavailable Cayden Chnig Attending Unavailable Malys, Adelina Primary Care Unavailable Cornelius Dyer Referring Unavailable ManishaCornelius Attending Unavailable Malys, Adelina Primary Care Unavailable Malys, Adelina Attending Unavailable Malys, Adelina Primary Care Unavailable Malys, Adelina Referring Unavailable Malys, Adelina Attending Unavailable Malys, Adelina Primary Care Unavailable Malys, Adelina Referring Unavailable Malys, Aedlina Attending Unavailable Malys, Adelina Referring Unavailable Washington Arvizu NP Attending Unavailable Malys, Adelina Primary Care Unavailable Malys, Adelina Referring Unavailable Friend, Juliette Attending Unavailable Malys, Adelina Primary Care Unavailable Malys, Adelina Primary Care Unavailable Malys, Adelina Referring Unavailable Danny Treadwell Attending Unavailable Friend, Juliette Attending Unavailable Malys, Adelina Primary Care Unavailable Malys, Adelina Referring Unavailable Malys, Adelina Referring Unavailable Malys, Adelina Attending Unavailable Malys, Adelina Primary Care Unavailable Wyneski, Temitope Referring Unavailable WynesSerena ramosy Attending Unavailable Malys, Adelina Primary Care Unavailable Malys, Adelina Primary Care Unavailable Malys, Adelina Referring Unavailable Friend, Juliette Attending Unavailable Malys, Adelina Primary Care Unavailable Malys, Adelina Referring Unavailable Malys, Adelina Attending Unavailable Malys, Adleina Primary Care Unavailable Basali, Ayman Referring Unavailable Basali, Ayman Attending Unavailable Allergies Allergy Classification Reported Allergen(s) Allergy Type Date of Onset Reaction(s) Facility (10 sources) iodine drug allergy 1 [facility] Work Phone: [phone] (11 sources) levoFLOXacin; Translations: [LEVOFLOXACIN] drug allergy 5 Abdominal pain [facility] Work Phone: [phone] (10 sources) naproxen drug allergy 1 [facility] Work Phone: [phone] (20 sources) levoFLOXacin; Translations: [levofloxacin] Drug Allergy 5 Other: See Comments [facility] (20 sources) Naproxen; Translations: [naproxen] Drug Allergy 5 GI Upset [facility] (20 sources) Iodinated Contrast Media; Translations: [Iodinated Contrast Media] Allergy to substance [address] [facility] (9 sources) Contrast media; Translations: [iodinated radiocontrast agents] Drug allergy 7 [facility] (7 sources) Diatrizoate Drug Allergy 7 [facility] (1 source) levoFLOXacin Drug Allergy 5 [facility] (1 source) Naproxen Drug Allergy 5 [facility] Medications Current Medications Medication Drug Class(es) Dates Sig (Normalized) Sig (Original) 8 hr acetaminophen 650 mg extended release oral tablet (20 sources) Start: 06-18-2024 End: 06-22-2024 take 1 tablet by mouth every six hours acetaminophen 650 MG Tab CR Take 1 tablet by mouth every 6 hours for 16 doses. Alternate with ibuprofen doses every 3 hours. 16 tablet 06/18/2024 Active Start: 01-30-2024 take 1 tablet by lisa th every six hours as needed for pain Acetaminophen 500 mg tablet Active 500 mg PO EVERY 6 HOURS as needed for Pain January 30, 2024 9:50am Start: 07-31-2021 End: 01-30-2024 take 2 tablets by mouth every six hours as needed for pain Acetaminophen 500 mg Tablet Discontinued 1000 mg PO EVERY 6 HOURS as needed for Pain July 31, 2021 1:00am January 30, 2024 9:52am Start: 07-31-2021 take 1000 mg by mout h every six hours Acetaminophen Active 1000 MG PO EVERY 6 HOURS July 31, 2021 1:00am atenolol 25 mg oral tablet (20 sources) beta-Adrenergic Iván Start: 06-16-2024 End: 06-18-2024 Start: 05-15-2023 End: 05-15-2023 atenolol Start: 05/15/23 9:0 0:00 AM EST, Dose = 12.5 mg, = 0.5 tab(s), Oral, 0, 05/14/23 15:50:00 EST Start Date: 05/15/23 Stop Date: 05/15/23 Status: Completed Start: 05-14-2023 End: 05-14-2023 atenolol Start: 05/14/23 10: 00:00 PM EST, Dose = 25 mg, = 1 tab(s), Oral, 0, 05/14/23 15:50:00 EST Start Date: 05/14/23 Stop Date: 05/14/23 Status: Completed Start: 03-05-2023 End: 06-23-2024 Atenolol 25 mg tablet Discon tinued 12.5 mg PO DAILY March 05, 2023 12:00am June 23, 2024 8:34am Start: 03-05-2023 take 12.5 mg by mout h once daily Atenolol Active 12.5 MG PO DAILY March 05, 2023 12:00am Start: 08-10-2020 End: 10-27-2020 Atenolol 25 mg tablet Discon tinued 12.5 mg PO TWICE A DAY August 10, 2020 1:53pm October 27, 2020 1:08pm Start: 08-10-2020 End: 10-27-2020 take 12.5 mg by mouth twice daily Atenolol Discontinued 12.5 MG PO TWICE A DAY August 10, 2020 1:53pm October 27, 2020 1:08pm Start: 05-04-2020 End: 06-05-2020 Atenolol 25 MG tablet Discon tinued 12.5 mg PO DAILY May 04, 2020 10:05pm June 05, 2020 2:44pm Start: 05-04-2020 End: 06-05-2020 take 12.5 mg by mouth once daily Atenolol Discontinued 12.5 MG PO DAILY May 04, 2020 10:05pm June 05, 2020 2:44pm Start: 03-09-2020 End: 03-27-2020 Atenolol 25 mg tablet Discon tinued 12.5 mg PO TWICE A DAY March 09, 2020 11:03am March 27, 2020 5:11pm Start: 03-09-2020 End: 03-27-2020 take 12.5 mg by mouth twice daily Atenolol Discontinued 12.5 MG PO TWICE A DAY March 09, 2020 11:03am March 27, 2020 5:11pm Start: 10-19-2013 End: 05-04-2020 take 0.5 tablet by mouth at bedtime Atenolol 25 mg tablet Discontinued 25 mg PO .COMPLEX March 27, 2020 5:11pm May 04, 2020 10:06pm 25 mg PO 1/2 tablet (12.5 mg) in am and whole tablet (25 mg) at HS; Start: 01-11-2013 End: 10-05-2024 take 1 tablet by mouth in the evening Atenolol 25 mg tablet Active 25 mg PO AT BEDTIME October 05, 2024 12:12pm 25 mg PO one half tab in the am and one tab in the pm; Start: 11-12-2010 [facility] daily ATENOLOL 25 MG TABS One tablet by mouth twice daily ATENOLOL [id number] Ronit M Dawood calcium carbonate 1500 mg / cholecalciferol 1000 unt oral capsule (5 sources) Vitamin D Start: 06-11-2023 Calcium Carbon ate-Vitamin D3 600 mg-25 mcg (1,000 unit) capsule Active 1 NMA PO DAILY June 11, 2023 1:00am Start: 06-11-2023 take 1 capsule by mo [facility] once daily Calcium Carbonate-Vitamin D3 Active 1 CAP PO DAILY June 11, 2023 1:00am Calcium Citrate / Vitamin D (3 sources) Calcium Citrate-Vitamin D (CALCIUM + D PO) Take by mouth daily every morning. Active Calcium Plus Vitamin D3 600 mg-12.5 mcg (500 intl units) oral capsule (2 sources) Start: 05-06-20 take 1 capsule by mouth once daily at mealtime Calcium Plus Vitamin D3 600 mg-12.5 mcg (500 intl units) oral capsule Dose = 2 cap(s), Oral, qDay, with food, # 120 EA, 0 Refill(s) Start Date: 05/06/23 Status: Ordered dexlansoprazole 60 mg delayed release oral capsule (1 source) Proton Pump Inhibitor Start: 03-04-20 End: 06-02-19 25 take 1 capsule by mouth once daily Dexlansoprazole (DEXILANT) 60 mg CpDM Take 60 mg by mouth once daily. 90 capsule 03/04/2024 06/02/2024 Active 0.6 ml enoxaparin sodium 100 mg/ml prefilled syringe (20 sources) Low Molecular Weight Heparin Start: 06-18-19 Enoxaparin Sodium 60 MG/0.6ML Solution Prefilled Syringe injection Indications: factor V leiden Please take your enoxaparin (lovenox) that has previously been prescribed to you by your PCP as you bridge back to coumadin. You should resume taking your coumadin 3 mg each evening as well. Please contact your coumadin provider following discharge to ensure you're being adequately anticoagulated. 06/18/2024 Active Start: 10-21-2013 LOVENOX 60 MG/ 0.6ML SOLN 0.6 mg/1 syringe subcu twice daily Starting 11/01/2013 through 11/03/13 , then stop. (Stop Coumadin 11/01/13 also) ENOXAPARIN SODIUM [id number] Jacinto Laureano MD Start: 10-21-2013 End: 10-18-2014 LOVENOX 60 MG/0.6ML SOLN 0.6 mg/1 syringe subcu twice daily Starting 11/01/2013 through 11/03/13 , then stop. (Stop Coumadin 11/01/13 also) ENOXAPARIN SODIUM [id number] Jacinto Laureano MD Start: 10-21-2013 End: 10-18-2014 LOVENOX 60 MG/0.6ML SOLN 0.6 mg/1 syringe subcu twice daily Starting 11/01/2013 through 11/03/13 , then stop. (Stop Coumadin 11/01/13 also) ENOXAPARIN SODIUM [id number] Jacinto Laureano MD Start: 10-21-2013 LOVENOX 60 MG/ 0.6ML SOLN 0.6 mg/1 syringe subcu twice daily Starting 11/01/2013 through 11/03/13 , then stop. (Stop Coumadin 11/01/13 also) ENOXAPARIN SODIUM [id number] Jacinto Laureano MD Start: 10-21-2013 End: 10-18-2014 LOVENOX 60 MG/0.6ML SOLN 0.6 mg/1 syringe subcu twice daily Starting 11/01/2013 through 11/03/13 , then stop. (Stop Coumadin 11/01/13 also) ENOXAPARIN SODIUM [id number] Jacinto Laureano MD ibuprofen 600 mg oral tablet (3 sources) Nonsteroidal Anti-inflammatory Drug Start: 06-18-2024 End: 06-22-2024 take 1 tablet by mouth every six hours Ibuprofen 600 MG tablet Take 1 tablet by mouth every 6 hours for 16 doses. Alternate with acetaminophen doses every 3 hours. 16 tablet 06/18/2024 Active Start: 06-18-2024 End: 06-18-2024 take 1 tablet by mouth every six hours as needed 400 mg, Oral, EVERY 6 HOURS NEEDED, Starting on Fri06/18/24 at 1100, Until Fri06/18/24 at 1611, Mild Pain, Moderate Pain, Give with food levothyroxine sodium 0.075 mg oral tablet (20 sources) l-Thyroxine Start: 01-30-2024 End: 06-18-2024 take 1 tablet by mouth once daily Levothyroxine 75 mcg tablet Active 75 ug PO daily January 30, 2024 12:00am Start: 11-20-2023 End: 01-30-2024 Levothyroxine (Euthyrox) 50 mcg tablet Discontinued [facility] 20, 2023 12:00am January 30, 2024 9:48am Start: 05-06-2023 levothyroxine 75 mcg (0.075 mg) oral tablet Dose : 75 mcg = 1 tab(s), Oral, qDay, 75MCG ON MON, WED, FRI, AND SUN 50MCG ON THURS AND SAT, # 30 tab(s), 0 Refill(s) Start Date: 05/06/23 Status: Ordered Start: 11-20-2022 End: 01-30-2024 Levothyroxine 50 mcg tablet Discontinued 75 ug PO [facility] November 20, 2022 2:13pm January 30, 2024 9:48am 75mcg M/W/F/Sun, 50mcg T/Th/Sat Start: 11-20-2022 Levothyroxine Active 0 PO TUTH November 20, 2022 2:13pm 75mcg M/W/F/Sun, 50mcg T/Th/Sat Start: 07-31-2021 End: 11-20-2022 Levothyroxine 50 mcg tablet Discontinued 50 ug PO TUTH July 31, 2021 1:00am November 20, 2022 2:14pm Start: 05-04-2020 End: 01-23-2022 Levothyroxine 75 MCG tablet Discontinued 75 ug PO SUMOWEFRSA May 04, 2020 1:00am January 23, 2022 9:28am Start: 11-12-2010 End: 03-09-2020 take 1 tablet by mouth once daily Levothyroxine 75 mcg tablet Discontinued 75 ug PO DAILY February 08, 2019 1:01pm March 09, 2020 10:37am Start: 11-12-2010 take 1 tablet by lisa th once daily LEVOTHYROXINE SODIUM 100 MCG TABS One tablet by mouth daily LEVOTHYROXINE SODIUM [id number] Ronit M Dawood Start: 11-12-2010 take 1 tablet by lisa th once daily, then take 0.5 tablet by mouth LEVOTHYROXINE SODIUM 88 MCG TABS One tablet by mouth daily except 1/2 tablet on Friday LEVOTHYROXINE SODIUM [id number] Jacinto Laureano MD Lidocaine (20 sources) Antiarrhythmic, Amide Local Anesthetic Start: 08-04-2024 lidocaine oral solution Active PO DAILY as needed August 04, 2024 1:00am Start: 06-18-2024 End: 06-22-2024 lidocaine 4 % patch Place 1 patch on skin every 24 hours for 4 days. Max of 12 hours of application then remove. 4 patch 06/18/2024 06/22/2024 Active Start: 06-17-2024 End: 06-18-2024 apply 1 dose transdermal route once daily as needed for pain 1 patch, Transdermal, Administer over 12 Hours, DAILY NEEDED, Starting on Xiao 06/17/24 at 1452, Until Fri06/18/24 at 1611, Other, Pain, Apply to painful areas of chest and back . Start: 04-16-2024 End: 04-17-2024 Lidocaine HCl Urethral/Mucos al 2 % jelly prefilled syringe (Urojet) PRSY 10 mL Start: 01-30-2024 End: 03-22-2024 Lidocaine Hcl 2 % solution Discontinued 1 NMA PO ONCE as needed January 30, 2024 12:00am March 22, 2024 6:58pm Start: 11-14-2023 End: 12-14-2023 Lidocaine Hcl (Lidocaine Vis cous) 2 % solution Discontinued 1 NMA MUCOUS MEM THREE TIMES A DAY as needed for pain 600 30 November 14, 2023 12:00am December 13, 2023 12:00am December 14, 2023 12:05am Start: 07-23-2022 End: 07-25-2022 Lidocaine Hcl (Lidocaine Vis cous) 2 % solution Discontinued 1 NMA MUCOUS MEM TWICE A DAY 600 July 23, 2022 1:00am July 25, 2022 12:48pm please mix with Maalox Start: 07-23-2022 End: 07-25-2022 Lidocaine Hcl (Lidocaine Vis cous) 2 % solution Discontinued 1 APPLIC MUCOUS MEM TWICE A DAY 600 July 23, 2022 12:00am July 25, 2022 11:48am please mix with Maalox Start: 07-23-2022 End: 07-25-2022 Lidocaine Hcl (Lidocaine Vis cous) 2 % solution Discontinued 1 APPLIC MUCOUS MEM TWICE A DAY 600 July 23, 2022 1:00am July 25, 2022 12:48pm please mix with Maalox Magic Mouth Wash (Bmx) (6 sources) Start: 07-25-2022 Magic Mouth Wa sh (Bmx) Active 10 ML PO TWICE A DAY 180 July 25, 2022 1:00am diphenhydramine 12.5 mg/5 mL oral liquid 60 mL; aluminum-mag hydroxide-simethicone 400 mg-400 mg-40 mg/5 mL oral susp 60 mL; Lidocaine Viscous 2 % mucosal solution 60 mL; Per 180 mL MULTI-VITAMIN ORAL (6 sources) MULTI-VITAMIN OR AL Take by mouth. Active MULTI-VITAMIN OR AL Take by mouth. 0 Active Multiple Vitamin (MULTI VITAMIN PO) (5 sources) take 1 tablet by lisa th once daily in the morning Multiple Vitamin (MULTI VITAMIN PO) Take 1 tablet by mouth daily every morning. Active Multivit With Min-Folic Acid (Multivitamin Gummies) 200 mcg Tablet,Chewable (20 sources) Start: 08-28-2021 take 2 tablets by mouth once daily Multivit With Min-Folic Acid (Multivitamin Gummies) 200 mcg Tablet,Chewable Active 2 TABLET PO DAILY August 28, 2021 8:09am Start: 08-28-2021 take 1 tablet by lisa once daily Multivit With Min-Folic Acid (Multivitamin Gummies) 200 mcg Tablet,Chewable Active 2 {tbl} PO DAILY August 28, 2021 12:00am Start: 08-28-2021 take 2 tablets by mo [facility] once daily Multivit With Min-Folic Acid (Multivitamin Gummies) 200 mcg Tablet,Chewable Active 2 TABLET PO DAILY August 27, 2021 11:00pm Start: 08-28-2021 take 2 tablets by mo [facility] once daily Multivit With Min-Folic Acid (Multivitamin Gummies) 200 mcg Tablet,Chewable Active 2 TABLET PO DAILY August 28, 2021 12:00am oxyCODONE hydrochloride 5 mg oral tablet (3 sources) Opioid Agonist Start: 06-18-2024 End: 06-21-2024 take 1 tablet by mouth every six hours as needed for pain oxyCODONE 5 MG tablet Indications: Status post repair of paraesophageal diaphragmatic hernia , Postoperative pain Take 1 tablet by mouth every 6 hours as needed for Severe Pain for up to 3 days. 10 tablet 06/18/2024 Active Start: 06-15-2024 End: 06-18-2024 take 1 tablet by mouth every three hours as needed oxyCODONE (ROXICODONE) tablet 5 mg polyethylene glycol 3350 24065 mg powder for oral solution (20 sources) Osmotic Laxative Start: 05-06-2023 Polyethylene glycol 17 GM/SCOOP Powder powder 17 g as needed. 05/06/2023 Active Start: 05-06-2023 take 17 doses by lisa th once daily as needed for constipation MiraLax oral powder for reconstitution Dose : 17 gram(s) =, Oral, Daily, PRN Constipation, # 510 gram(s), 0 Refill(s) Start Date: 05/06/23 Status: Ordered Start: 08-21-2021 Polyethylene G lycol 3350 (Miralax) 17 gram/dose powder Active 17 g PO NEEDED as needed for Constipation August 21, 2021 12:00am promethazine hydrochloride 12.5 mg oral tablet (6 sources) Phenothiazine Start: 06-23-2024 take 1 tablet by mouth every four to six hours as needed Promethazine 12.5 mg tablet Active 12.5 mg PO EVERY 4-6 HOURS as needed June 23, 2024 1:00am Start: 06-18-2024 take 0.5 tablet by m outh every six hours as needed for nausea Promethazine 25 MG tablet Take 0.5 tablets by mouth every 6 hours as needed for Nausea / Vomiting. 60 tablet 06/18/2024 Active Start: 06-18-2024 End: 06-18-2024 take 1 tablet by mouth every six hours Promethazine HCl 12.5 MG tablet Take 1 tablet by mouth every 6 hours. 120 tablet 06/18/2024 06/18/2024 Discontinued (Stop Taking at Discharge) Start: 06-17-2024 End: 06-18-2024 take 6.25 mg intravenously every eight hours as needed 6.25 mg, Intravenous, EVERY 8 HOURS NEEDED, Starting on Xiao 06/17/24 at 1844, Until Fri06/18/24 at 1611, Nausea / Vomiting, 2nd line, Extravasation Risk. If given via IV route: dilute dose with 10mL normal saline and inject through a running IV or line over 5 minutes OR if no active IV or line is saline-dwelled dilute dose with 20mL normal saline and administer over 5 minutes. AVOID Intra-arterial administration; necrosis & gangrene have resulted. Hand, wrist or foot veins SHOULD BE AVOIDED. tiZANidine 4 mg oral tablet (20 sources) Central alpha-2 Adrenergic Agonist Start: 10-28-2013 End: 10-27-2020 take 1 tablet by mouth at bedtime Tizanidine 4 mg tablet Active 4 mg PO AT BEDTIME October 27, 2020 1:07pm Start: 12-05-2011 take 1 capsule by mo [facility] three times daily Tizanidine HCl 4 mg capsule Take 1 capsule by mouth three times daily. 0 12/05/2011 Active Start: 11-12-2010 End: 09-04-2015 take 1 tablet by mouth once daily at bedtime TIZANIDINE HCL 4 MG TABS One tablet by mouth daily at bedtime TIZANIDINE HCL [id number] Jacinto Laureano MD Completed/Discontinued Medications Medication Drug Class(es) Dates Sig (Normalized) Sig (Original) acetaminophen 21.7 mg/ml / HYDROcodone bitartrate 0.5 mg/ml oral solution (20 sources) Opioid Agonist Start: 09-05-2021 End: 09-12-2021 take 1 mL by mouth every four hours as needed for pain Hydrocodone-Acetami nophen 7.5-325 mg/15 mL Solution Discontinued 10 - 15 mL PO EVERY 4 HOURS NEEDED as needed for Pain Score 6-10 [phone] September 05, 2021 September 05, 2021 6:08pm Start: 09-05-2021 End: 09-12-2021 take 1 mL by mouth every four hours as needed Hydrocodone-Acetaminophen Discontinued 1 0 - 15 ML PO EVERY 4 HOURS NEEDED 473 5 September 05, 2021 September 05, 2021 6:08pm Start: 02-26-2018 End: 10-27-2020 Hydrocodone-Acetaminophen 5- 325 mg tablet Discontinued 1 {tbl} PO NEEDED as needed for Pain February 26, 2018 3:03pm October 27, 2020 1:08pm Start: 02-26-2018 End: 10-27-2020 Hydrocodone-Acetaminophen Di scontinued 1 TABLET PO NEEDED February 26, 2018 3:03pm October 27, 2020 1:08pm Start: 06-17-2017 End: 02-26-2018 Hydrocodone-Acetaminophen 5- 325 mg tablet Discontinued 1 {tbl} PO THREE TIMES A DAY June 17, 2017 1:00am February 26, 2018 3:04pm Start: 06-17-2017 End: 02-26-2018 take 1 tablet by mouth three times daily Hydrocodone-Acetaminophen Discontinued 1 TABLET PO THREE TIMES A DAY June 17, 2017 1:00am February 26, 2018 3:04pm Start: 10-18-2014 take 1 tablet by lisa three times daily as needed HYDROCODONE-ACETAMINOPHEN 5-325 MG TABS One tablet by mouth three times daily as needed HYDROCODONE-ACETAMINOPHEN [id number] Jacinto Laureano MD Start: 11-04-2013 End: 06-17-2017 take 1 tablet by mouth every eight hours as needed Hydrocodone-Acetaminophen Discontinued 1 TABLET PO EVERY 8 HOURS NEEDED November 04, 2013 10:57am June 17, 2017 3:12pm Start: 10-28-2013 End: 06-17-2017 Hydrocodone-Acetaminophen 1 EACH tablet Discontinued 1 {tbl} PO EVERY 8 HOURS NEEDED as needed for Pain November 04, 2013 10:57am June 17, 2017 3:12pm Start: 12-05-2011 End: 01-14-2024 take 1 tablet by mouth every four hours as needed acetaminophen-hydrocodone 5-500 mg table t Take 1 tablet by mouth every 4 hours as needed. 0 12/05/2011 01/14/2024 Discontinued (Course of therapy completed) amoxicillin 500 mg oral capsule (20 sources) Penicillin-class Antibacterial Start: 01-30-2024 End: 03-22-2024 take 4 capsules by mouth once as needed Amoxicillin 500 mg capsule Discontinued 2000 mg PO ONCE as needed January 30, 2024 12:00am March 22, 2024 6:57pm One hour prior to dental visits Start: 05-30-2022 End: 11-20-2023 take 4 tablets by mouth every hour Amoxicillin 500 mg tablet Discontinued 500 mg PO .COMPLEX August 20, 2023 10:49am November 20, 2023 11:14am 500 mg PO 4 tablets by mouth 1 hr prior to procedure Start: 06-29-2018 End: 04-12-2020 take 4 tablets by mouth every hour Amoxicillin 500 mg tablet Discontinued 500 mg PO .COMPLEX September 24, 2018 8:57am April 12, 2020 11:30am 500 mg PO 4 tablets by mouth one hour prior to dental procedure; Start: 06-17-2017 End: 09-24-2017 take 4 tablets by mouth every hour Amoxicillin 500 mg tablet Discontinued 500 mg PO .COMPLEX June 17, 2017 1:00am September 24, 2017 10:14am 500 mg PO 4 tablets by mouth 1 hr prior to procedure Start: 04-04-2017 take 4 tablets by mo [facility] every hour AMOXICILLIN 500 MG TABS 4 tablets by mouth 1 hr prior to procedure AMOXICILLIN [id number] Martina Brandt PA-C aspirin 81 mg oral tablet (20 sources) Platelet Aggregation Inhibitor, Nonsteroidal Anti-inflammatory Drug Start: 06-10-2011 End: 10-18-2014 take 1 tablet by mouth once daily ASPIRIN 81 MG TABS One tablet by mouth daily ASPIRIN [id number] Melvin Flowers MD Start: 06-10-2011 End: 10-18-2014 take 1 tablet by mouth once daily ASPIRIN 81 MG TABS One tablet by mouth daily ASPIRIN [id number] Melvin Flowers MD Start: 06-10-2011 ASPIRIN 81 MG TABS ASPIRIN [id number] Melvin Flowers MD Start: 11-12-2010 take 1 tablet by lisa th once daily ECOTRIN 325 MG TBEC One tablet by mouth daily ASPIRIN [id number] Ronit Seay Start: 11-12-2010 take 1 tablet by lisa th once daily ECOTRIN 325 MG TBEC One tablet by mouth daily ASPIRIN [id number] Ronit Seay benzonatate 200 mg oral capsule (20 sources) Non-narcotic Antitussive Start: 06-21-2017 End: 12-22-2017 take 200 mg by mouth three times daily as needed for cough benzonatate 200 mg Discontinued 200 mg PO THREE TIMES A DAY as needed for cough June 21, 2017 1:00am December 22, 2017 2:46pm calcium chloride 0.0014 meq/ml / potassium chloride 0.004 meq/ml / sodium chloride 0.103 meq/ml / sodium lactate 0.028 meq/ml injectable solution (2 sources) Start: 06-15-2024 End: 06-15-2024 Intravenous, at 50 mL/hr, CONTINUOUS, Starting on Fri06/15/24 at 0945, Until Fri06/15/24 at 1515, Pre-op/Pre-Proc Start: 02-11-2024 End: 02-11-2024 take 5-30 mL intravenously every hour 5-30 mL/hr, INTRAVENOUS, CONTINUOUS, Starting on Fri02/11/24 at 1430, Until Fri02/11/24 at 1528, Preprocedure cephalexin 500 mg oral capsule (3 sources) Cephalosporin Antibacterial Start: 03-22-2024 End: 08-04-2024 take 1 capsule by mouth every six hours Cephalexin 500 mg capsule Discontinued 500 mg PO EVERY 6 HOURS March 22, 2024 12:00am August 04, 2024 2:00pm Start: 05-06-2023 End: 05-13-2023 cephalexin 500 mg oral capsu le Dose : 500 mg = 1 cap(s), Oral, TID, 0 Refill(s) Start Date: 05/06/23 Stop Date: 05/13/23 Status: Ordered cholecalciferol 0.05 mg oral tablet (20 sources) Vitamin D Start: 10-27-2020 End: 06-11-2023 take 1 tablet by mouth once daily Cholecalciferol (Vitamin D3) 50 mcg (2,000 unit) tablet Discontinued 50 ug PO DAILY October 27, 2020 12:00am June 11, 2023 10:00am Start: 06-20-2017 End: 06-30-2018 take 1 capsule by mouth once daily Cholecalciferol (Vitamin D3) 2,000 unit capsule Discontinued 2000 U PO daily June 20, 2017 1:00am June 30, 2018 2:39pm dexamethasone 2 mg oral tablet (20 sources) Corticosteroid Start: 05-10-2020 End: 10-27-2020 take 3 tablets by mouth once daily Dexamethasone 2 MG tablet Discontinued 6 mg PO DAILY May 10, 2020 1:00am October 27, 2020 1:08pm Start: 05-10-2020 End: 10-27-2020 take 6 mg by mouth once daily Dexamethasone Discontinu ed 6 MG PO DAILY May 10, 2020 1:00am October 27, 2020 1:08pm DULoxetine 30 mg delayed release oral capsule (20 sources) Serotonin and Norepinephrine Reuptake Inhibitor Start: 11-12-2010 End: 06-10-2011 take 1 tablet by mouth once daily CYMBALTA 30 MG CPEP One tablet by mouth daily DULOXETINE HCL [id number] Melvin Flowers MD Enoxaparin Sodium (LOVENOX) injection 60 mg (1 source) Start: 06-16-2024 End: 06-18-2024 Enoxaparin Sodium (LOVENOX) injection 60 mg Ergocalciferol (20 sources) Provitamin D2 Compound Start: 11-12-2010 End: 01-11-2013 VITAMIN D (ERGOCALCIFEROL) 64726 UNIT CAPS Once a week ERGOCALCIFEROL [id number] Omar Wilson MD Start: 11-12-2010 VITAMIN D (ERG OCALCIFEROL) 46598 UNIT CAPS Once a week ERGOCALCIFEROL [id number] Ronit Seay Start: 11-12-2010 End: 01-11-2013 VITAMIN D (ERGOCALCIFEROL) 5 0000 UNIT CAPS Once a week ERGOCALCIFEROL [id number] Omar Wilson MD Start: 11-12-2010 End: 01-11-2013 VITAMIN D (ERGOCALCIFEROL) 5 0000 UNIT CAPS Once a week ERGOCALCIFEROL [id number] Omar Wilson MD Start: 11-12-2010 VITAMIN D (ERG OCALCIFEROL) 54764 UNIT CAPS Once a week ERGOCALCIFEROL [id number] Ronit Seay 1 ml HYDROmorphone hydrochloride 1 mg/ml cartridge (1 source) Opioid Agonist Start: 06-15-2024 End: 06-15-2024 0.5 mg, Intravenous, EVERY 10 MINUTES NEEDED, 8 doses, Starting on Fri06/15/24 at 1346, Until Fri06/15/24 at 1515, Moderate Pain, Severe Pain, May give a total of 4mg in PACU., Recovery hyoscyamine sulfate 0.125 mg sublingual tablet (20 sources) Start: 04-22-2022 End: 12-11-2022 Hyoscyamine Sulfate 0.125 mg tablet, sublingual Discontinued 0.125 mg PO 2 to 4 times per day as needed for dyspepsia April 22, 2022 1:00am December 11, 2022 2:51pm Start: 10-28-2013 End: 06-20-2017 take 1 tablet under the tongue three times daily as needed Hyoscyamine Sulfate 0.125 MG tablet, sublingual Discontinued 0.125 mg SL 3 TIMES DAILY NEEDED October 28, 2013 12:00am June 20, 2017 2:27pm Start: 11-12-2010 End: 05-09-2016 take 1 tablet by mouth every six hours as needed HYOSCYAMINE SULFATE 0.125 MG TABS 1 tablet by mouth Q6H as needed HYOSCYAMINE SULFATE [id number] Jacinto Laureano MD ibandronic acid 150 mg oral tablet (20 sources) Bisphosphonate Start: 12-09-2011 End: 01-11-2013 take 1 tablet by mouth every month BONIVA 150 MG TABS 1 tablet by mouth once a month IBANDRONATE SODIUM [id number] Melvin Flowers MD linaclotide 0.145 mg oral capsule (11 sources) Guanylate Cyclase-C Agonist Start: 12-11-2022 End: 12-23-2022 take 1 capsule by mouth once daily Linaclotide (Linzess) 145 mcg capsule Discontinued 145 ug PO DAILY December 23, 2022 12:00am December 23, 2022 9:30am meloxicam 15 mg oral tablet (20 sources) Nonsteroidal Anti-inflammatory Drug Start: 11-12-2010 End: 06-10-2011 MELOXICAM 15 MG TABS 1/2 tablet daily MELOXICAM [id number] Ronit Seay metoclopramide 5 mg oral tablet (20 sources) Dopamine-2 Receptor Antagonist Start: 10-15-2021 End: 01-23-2022 Metoclopramide Hcl (Reglan) 5 mg tablet Discontinued 5 mg PO AT BEDTIME October 15, 2021 4:29pm January 23, 2022 9:26am take one at night for two weeks Start: 08-16-2021 End: 08-21-2021 Metoclopramide Hcl (Reglan) 5 mg tablet Discontinued 5 mg PO TWICE A DAY August 16, 2021 12:00am August 21, 2021 9:37am take one in the morning and one at night for two weeks 120 actuat mometasone furoate 0.22 mg/actuat dry powder inhaler (20 sources) Corticosteroid Start: 11-12-2010 End: 10-18-2014 ASMANEX 120 METERED DOSES 220 MCG/INH AEPB Take as directed MOMETASONE FUROATE [id number] Jacinto Laureano MD Start: 11-12-2010 End: 10-18-2014 ASMANEX 120 METERED DOSES 22 0 MCG/INH AEPB Take as directed MOMETASONE FUROATE [id number] Jacinto Laureano MD Start: 11-12-2010 ASMANEX 120 ME TERED DOSES 220 MCG/INH AEPB Take as directed MOMETASONE FUROATE [id number] Ronit Carpio Seay Morphine (PF) injection 2 mg (1 source) Start: 06-15-2024 End: 06-18-2024 take 2 mg intravenously every three hours as needed Morphine (PF) injection 2 mg omeprazole 20 mg delayed release oral capsule (20 sources) Proton Pump Inhibitor Start: 11-14-2023 End: 08-04-2024 take 1 capsule by mouth twice daily Omeprazole 20 mg capsule,delayed release(DR/EC) Discontinued 20 mg PO TWICE A DAY May 18, 2024 2:09pm August 04, 2024 1:59pm Start: 05-04-2020 End: 08-21-2021 take 1 capsule by mouth twice daily Omeprazole 20 MG capsule Discontinued 20 mg PO TWICE A DAY May 04, 2020 1:00am August 21, 2021 9:37am Start: 11-28-2008 End: 12-22-2017 take 1 capsule by mouth once daily Omeprazole 40 MG capsule Discontinued 40 mg PO DAILY October 28, 2013 12:00am December 22, 2017 2:47pm 2 ml ondansetron 2 mg/ml injection (2 sources) Serotonin-3 Receptor Antagonist Start: 06-17-2024 End: 06-18-2024 take 4 mg intravenously every eight hours as needed 4 mg, Intravenous, EVERY 8 HOURS NEEDED, Starting on Fri06/17/24 at 1844, Until Fri06/18/24 at 1611, Nausea / Vomiting, 1st line Start: 06-15-2024 End: 06-18-2024 4 mg, Intravenous, EVERY 6 H OURS, First dose on Fri06/15/24 at 1800, Until Discontinued, Post-op/Post-Proc pantoprazole 40 mg delayed release oral tablet (20 sources) Proton Pump Inhibitor Start: 08-16-2021 End: 11-14-2023 take 1 tablet by mouth once daily Pantoprazole 40 mg tablet,delayed release (DR/EC) Discontinued 0 .ROUTE .COMPLEX 90 November 07, 2023 10:52am November 14, 2023 3:26pm Take 1 tablet by mouth once daily potassium chloride 10 meq extended release oral capsule (20 sources) Start: 05-04-2020 End: 10-27-2020 take 2 capsules by mouth twice daily Potassium Chloride 10 MEQ capsule, extended release Discontinued 20 meq PO TWICE A DAY May 04, 2020 1:00am October 27, 2020 1:08pm Start: 05-04-2020 End: 10-27-2020 take 20 mEq by mouth twice daily Potassium Chloride Discontinued 20 MEQ PO TWICE A DAY May 04, 2020 1:00am October 27, 2020 1:08pm predniSONE 20 mg oral tablet (20 sources) Start: 05-04-2020 End: 05-10-2020 Prednisone 20 MG tablet Discontinued 20 mg PO May 04, 2020 1:00am May 10, 2020 2:22pm prochlorperazine 5 mg oral tablet (1 source) Phenothiazine Start: 06-15-2024 End: 06-18-2024 take 1 tablet by mouth every six hours as needed 5 mg, Oral, EVERY 6 HOURS NEEDED, Starting on Fri06/15/24 at 1505, Until Fri06/18/24 at 1611, Nausea / Vomiting, Post-op/Post-Proc ramipril 5 mg oral capsule (20 sources) Angiotensin Converting Enzyme Inhibitor Start: 06-29-2018 End: 06-30-2018 take 1 capsule by mouth once daily Ramipril 5 mg capsule Discontinued 5 mg PO DAILY June 29, 2018 1:00am June 29, 2018 9:51am Start: 11-12-2010 End: 02-26-2018 take 1 capsule by mouth once daily Ramipril 5 MG capsule Discontinued 5 mg PO DAILY October 28, 2013 12:00am December 22, 2017 3:14pm Start: 11-12-2010 take 1 tablet by lisa once daily ALTACE 5 MG CAPS One tablet by mouth daily RAMIPRIL [id number] Jacinto Laureano MD simethicone in sterile water 40 mg/1000 mL irrigation 1 Application (1 source) Start: 04-01-2024 End: 04-01-2024 1 Application, Irrigation, ADMINISTER DIRECTED, Starting on Fri04/01/24 at 1210, Until Fri04/01/24 at 1409, Other, For gastrointestinal irrigation, Intra-op/Intra-Proc simvastatin 40 mg oral tablet (20 sources) HMG-CoA Reductase Inhibitor Start: 10-19-2013 take 0.5 tablet by mouth once daily simvastatin 80 mg tablet Take 0.5 tablets by mouth once daily. 0 10/19/2013 Active Start: 11-12-2010 End: 08-25-2024 take 1 tablet by mouth at bedtime Simvastatin 40 mg tablet Discontinued 40 mg PO AT BEDTIME March 30, 2024 3:45pm August 25, 2024 9:29am 1000 ml sodium chloride 9 mg/ml injection (2 sources) Start: 06-15-2024 End: 06-18-2024 Intravenous, at 75 mL/hr, CONTINUOUS, Starting on Fri06/15/24 at 1515, Until Fri06/18/24 at 1611, Post-op/Post-Proc Start: 04-01-2024 End: 04-02-2024 Intravenous, at 20 mL/hr, CO NTINUOUS, Starting on Fri04/01/24 at 1145, Until Fri04/02/24 at 0247, Pre-op/Pre-Proc sucralfate 1000 mg oral tablet (3 sources) Aluminum Complex Start: 10-23-2018 End: 01-14-2024 take 1 tablet by mouth every twelve hours as needed sucralfate (CARAFATE) 1 gram tablet Take 1 tablet by mouth twice daily as needed. 28 tablet 0 10/23/2018 01/14/2024 Discontinued (Course of therapy completed) triamcinolone acetonide 0.055 mg/actuat metered dose nasal spray (20 sources) Corticosteroid Start: 11-12-2010 End: 06-10-2011 NASACORT AQ 55 MCG/ACT AERO Take as directed TRIAMCINOLONE ACETONIDE(NASAL) [id number] Melvin Flowers MD Start: 11-12-2010 End: 06-10-2011 NASACORT AQ 55 MCG/ACT AERO Take as directed TRIAMCINOLONE ACETONIDE(NASAL) [id number] Melvin Flowers MD Start: 11-12-2010 NASACORT AQ 55 MCG/ACT AERO Take as directed TRIAMCINOLONE ACETONIDE(NASAL) [id number] Ronit Seay Start: 11-12-2010 End: 06-10-2011 NASACORT AQ 55 MCG/ACT AERS Take as directed TRIAMCINOLONE ACETONIDE(NASAL) [id number] Melvin Flowers MD Start: 11-12-2010 NASACORT AQ 55 MCG/ACT AERS Take as directed TRIAMCINOLONE ACETONIDE(NASAL) [id number] Ronit Seay warfarin sodium 2 mg oral tablet (20 sources) Vitamin K Antagonist Start: 07-31-2021 End: 06-11-2023 Warfarin 2 mg tablet Discontinued 2 mg PO .JANNETH June 11, 2023 9:59am June 11, 2023 10:09am Start: 06-20-2017 End: 12-17-2017 take 1 tablet by mouth once daily Warfarin (Coumadin) 1 mg tablet Discontinued 1 mg PO daily June 20, 2017 1:00am December 17, 2017 11:29am Start: 10-28-2013 End: 06-20-2017 take 1 tablet by mouth once daily Warfarin 2 MG tablet Discontinued 2 mg PO DAILY October 28, 2013 12:00am June 20, 2017 2:26pm Start: 06-10-2011 End: 06-11-2023 Warfarin 3 mg tablet Discont inued 3 mg PO [facility] June 11, 2023 9:59am June 11, 2023 10:09am Problems Active Problems Problem Classification Problem Date Documented Da te Episodic/Chronic Abdominal hernia (20 sources) Hiatal hernia; Translations: [Diaphragmatic hernia without obstruction or gangrene] Onset: 9 Episodic Abdominal pain (20 sources) Abdominal pain; Translations: [Unspecified abdominal pain] Onset: 9 Episodic Acute cerebrovascular disease (20 sources) Cerebrovascular accident; Translations: [Cerebral infarction, unspecified] Onset: 1 11-12-2010 Chronic Cancer of thyroid (13 sources) Malignant tumor of thyroid gland; Translations: [Malignant neoplasm of thyroid gland] Onset: 0 12-01-2009 Chronic Cancer of thyroid (20 sources) History of malignant neoplasm of thyroid; Translations: [Personal history of malignant neoplasm of thyroid] 06-03-2018 Episodic Cardiac and circulatory congenital anomalies (20 sources) Bicuspid aortic valve; Translations: [Congenital insufficiency of aortic valve] Onset: 1 10-04-2015 Chronic Cardiac dysrhythmias (20 sources) Palpitations; Translations: [Palpitations] Onset: 1 11-12-2010 Episodic Coagulation and hemorrhagic disorders (20 sources) Factor V deficiency; Translations: [Hereditary deficiency of other clotting factors] Onset: 6 09-04-2015 Chronic Complications of surgical procedures or medical care (13 sources) Postoperative hypothyroidism; Translations: [Postprocedural hypothyroidism] Onset: 4 02-11-2024 Chronic Complications of surgical procedures or medical care (20 sources) Postgastric surgery syndrome; 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] Episodic Conditions associated with dizziness or vertigo (20 sources) Dizziness and giddiness; Translations: [Vertigo] Onset: 1 Resolved: 6 11-12-2010 Episodic Coronary atherosclerosis and other heart disease (20 sources) Coronary arteriosclerosis; Translations: [Atherosclerotic heart disease of [place] coronary artery without angina pectoris] Onset: 1 Resolved: 2 11-12-2010 Chronic Disorders of lipid metabolism (20 sources) Hyperlipidemia; Translations: [Pure hypercholesterolemia] Onset: 1 11-12-2010 Chronic Esophageal disorders (20 sources) Gastroesophageal reflux disease; Translations: [Gastro-esophageal reflux disease without esophagitis] Onset: 6 Chronic Esophageal disorders (2 sources) Esophageal disorders; Translations: [Gastro-esophageal reflux disease with esophagitis, without bleeding] Onset: 4 Essential hypertension (20 sources) Hypertensive disorder; Translations: [Essential (primary) hypertension] Onset: 1 11-12-2010 Chronic Comment on above: CONTROLLED WITH MED External cause codes: Cut/suarez (1 source) Other foreign body or object entering through skin, initial encounter; Translations: [Other foreign body or object entering through skin, initial encounter] Onset: 9 External cause codes: Unspecified (1 source) Activity, gardening and landscaping; Translations: [Activity, gardening and landscaping] Onset: 9 Heart valve disorders (10 sources) Aortic valve disorder; Translations: [Other nonrheumatic aortic valve disorders] Onset: 1 11-12-2010 Chronic Nonspecific chest pain (20 sources) Precordial pain; Translations: [Atypical chest pain] Onset: 1 Resolved: 6 10-04-2015 Episodic Open wounds of extremities (3 sources) Laceration without foreign body of left middle finger without damage to nail, initial encounter; Translations: [Laceration without foreign body of left middle finger without damage to nail, initial encounter] Onset: 9 Episodic Other aftercare (2 sources) Long-term current use of anticoagulant; Translations: [alf (current) use of anticoagulants] 03-30-2024 Episodic Other circulatory disease (20 sources) History of transient ischemic attack; Translations: [Personal history of transient ischemic attack (TIA), and cerebral infarction without residual deficits] 08-28-2021 Episodic Comment on above: 2007 Other circulatory disease (2 sources) H/O: heart disorder; Translations: [Personal history of other diseases of the circulatory system] 03-30-2024 Episodic Other gastrointestinal disorders (17 sources) Dysphagia; Translations: [Dysphagia, unspecified] 04-22-2022 Episodic Other gastrointestinal disorders (2 sources) Dysphagia, unspecified; Translations: [Dysphagia, unspecified] Episodic Other gastrointestinal disorders (13 sources) Altered bowel function; Translations: [Change in bowel habit] 11-20-2022 Episodic Other gastrointestinal disorders (4 sources) Change in bowel habit; Translations: [Other symptoms involving digestive system] 11-20-2022 Episodic Other lower respiratory disease (20 sources) Dyspnea on exertion; Translations: [Dyspnea, unspecified] 06-03-2018 Episodic Other lower respiratory disease (20 sources) Hypoxemia; Translations: [Hypoxemia] 05-04-2020 Episodic Other nervous system disorders (1 source) Postoperative pain ; Translations: [Other acute postprocedural pain] 06-18-2024 Episodic Other non-traumatic joint disorders (7 sources) Hip pain; Translations: [Pain in left hip] 04-02-2023 Episodic Other nutritional; endocrine; and metabolic disorders (10 sources) Body mass index (BMI) 32.0-32.9, adult; Translations: [Body mass index (BMI) 32.0-32.9, adult] Onset: 4 10-21-2013 Chronic Phlebitis; thrombophlebitis and thromboembolism (20 sources) Deep venous thrombosis; Translations: [History of thrombophlebitis] Onset: 1 09-28-2013 Episodic Comment on above: Hx of RLE DVT X 2 Pneumonia (except that caused by tuberculosis or sexually transmitted disease) (20 sources) Pneumonia; Translations: [Pneumonia, unspecified organism] 05-05-2020 Episodic Pulmonary heart disease (1 source) Personal history of pulmonary embolism; Translations: [Personal history of pulmonary embolism] Onset: 9 Episodic Residual codes; unclassified (20 sources) History of fundoplication; Translations: [Other specified postprocedural states] 04-22-2022 Episodic Residual codes; unclassified (20 sources) Other specified postprocedural states; Translations: [Personal history of surgery to other organs] Onset: 5 Episodic Residual codes; unclassified (1 source) History of hernia repair; Translations: [Other specified postprocedural states] 06-18-2024 Episodic Spondylosis; intervertebral disc disorders; other back problems (1 source) Spondylosis without myelopathy or radiculopathy, cervical region; Translations: [Spondylosis without myelopathy or radiculopathy, cervical region] Onset: 5 Chronic Spondylosis; intervertebral disc disorders; other back problems (20 sources) Chronic back pain ; Translations: [Dorsalgia, unspecified] 05-05-2020 Episodic Thyroid disorders (20 sources) Hypothyroidism; Translations: [Acquired hypothyroidism] Onset: 9 09-13-2015 Chronic Comment on above: ON MED Unclassified (7 sources) Therapeutic drug monitoring assay ; Translations: [Encounter for therapeutic drug level monitoring] Onset: 6 09-04-2015 Unclassified (12 sources) Long-term drug therapy; Translations: [Other fci (current) drug therapy] Onset: 1 Resolved: 6 11-12-2010 Unclassified (1 source) Established Patient Onset: 4 Viral infection (20 sources) Disease caused by 2019-nCoV; Translations: [COVID-19] 05-05-2020 Episodic Past or Other Problems Problem Classification Problem Date Documented Da te Episodic/Chronic Anal and rectal conditions (20 sources) Anal fissure; Translations: [Anal fissure, unspecified] Onset: 04-15-2005 Resolved: 04-15-2005 12-11-2023 Episodic Crushing injury or internal injury (10 sources) Injury to other specified blood vessels of upper extremity; Translations: [Injury to other specified blood vessels of upper extremity] Onset: 11-12-2010 11-12-2010 Episodic Esophageal disorders (5 sources) Esophagitis; Translations: [Esophagitis, unspecified] Onset: 11-22-2005 12-11-2023 Episodic Gastritis and duodenitis (13 sources) Duodenitis; Translations: [Duodenitis without bleeding] Onset: 11-22-2005 12-11-2023 Episodic Genitourinary symptoms and ill-defined conditions (4 sources) Juan hematuria; Translations: [Gross hematuria] Onset: 04-13-2024 03-30-2024 Episodic Other aftercare (18 sources) Other fci (current) drug therapy; Translations: [Other termination clerk (current) drug therapy] Onset: 11-12-2010 Resolved: 05-08-2016 11-12-2010 Episodic Other aftercare (2 sources) alf (current) use of anticoagulants; Translations: [alf (current) use of anticoagulants] Onset: 12-01-2018 Episodic Other and unspecified benign neoplasm (13 sources) History of polyp of colon; Translations: [Personal history of colonic polyps] Onset: 03-26-2024 12-11-2023 Episodic Other and unspecified benign neoplasm (13 sources) Benign neoplasm of colon; Translations: [Benign neoplasm of colon, unspecified] Onset: 05-29-2005 12-11-2023 Episodic Other and unspecified benign neoplasm (13 sources) Benign neoplasm of stomach; Translations: [Benign neoplasm of stomach] Onset: 12-27-2011 12-27-2011 Episodic Other gastrointestinal disorders (6 sources) Other specified symptoms and signs involving the digestive system and abdomen; Translations: [Other symptoms involving digestive system] Onset: 12-27-2011 12-27-2011 Episodic Other gastrointestinal disorders (13 sources) Constipation; Translations: [Constipation, unspecified] Onset: 11-23-2015 11-23-2015 Episodic Other gastrointestinal disorders (2 sources) Personal history of other diseases of the digestive system; Translations: [Personal history of other diseases of the digestive system] Onset: 06-15-2024 Episodic Other nervous system disorders (2 sources) Other acute postprocedural pain; Translations: [Other acute postprocedural pain] Onset: 06-15-2024 Episodic Other screening for suspected conditions (not mental disorders or infectious disease) (11 sources) Patient encounter status; Translations: [Encounter for screening for malignant neoplasm of colon] Onset: 08-27-2024 11-25-2022 Episodic Residual codes; unclassified (20 sources) History of cardiac catheterization; Translations: [Other specified postprocedural states] Onset: 06-02-2007 06-03-2018 Episodic Unclassified (14 sources) Preoperative cardiovascular examination ; Translations: [Encounter for preprocedural cardiovascular examination] Onset: 10-20-2013 Resolved: 10-04-2015 10-20-2013 Results Test Name Value Interpretation Reference Range Facility Gastroenterology Visit Repor ton 10-15-2024 Gastroenterology Visit Report [facility] [address] [place] [address] OFFICE VISIT Date of Service: 10/15/24 MR#: [id number] Acct: [id number] Name: ANUSHA VIDAL Rep #: [id number] : 1950 Provider: Juliette Trejo DO Age/Sex: 74/F Location: [facility] [place] Status: Signed Intake Vital Signs 03/22/24 14:09 08/04/24 12:56 Height 4 ft 11 in 4 ft 11 in Weight: 125 lb BMI 25.2 BP 155/85 H Blood Pressure Location Lt brachial Position Sitting Respiration 18 Pulse 54 L Pulse Source Monitor Pulse Oximetry (%) 96 Oxygen Delivery Method room air Intake Visit Reasons: 4 M FU Allergies Iodinated Contrast Media (Iodinated Contrast Media - IV Dye) Allergy (Verified 10/15/24 08:58) Hives levofloxacin Adverse Reaction (Verified 10/15/24 08:58) abdominal pain naproxen (From Naprosyn) Adverse Reaction (Verified 10/15/24 08:58) Nausea Have you fallen in the past year?: No PFSH Medical History Ambulates with cane History of edema Loss of consciousness Gastric reflux History of pain when walking Dysphagia Wears glasses Cancer Thyroid disease High cholesterol DVT (deep venous thrombosis) Blood disorder Injury of back Back pain TIA (transient ischemic attack) History of IBS Shortness of breath on exertion History of stress test History of echocardiogram Normal stress echocardiogram Cardiology follow-up encounter History of irregular heartbeat Chest pain Abdominal pain Essential (primary) hypertension Pure hypercholesterolemia Palpitations Atherosclerotic heart disease of [place] coronary artery without angina pectoris History of deep vein thrombophlebitis of lower extremity Arthritis Dyspnea on exertion Atypical chest pain Factor V deficiency Vertigo History of TIA (transient ischemic attack) GERD (gastroesophageal reflux disease) History of thyroid cancer Chronic back pain Bicuspid aortic valve Hypothyroidism (acquired) Surgical History Hx of colonoscopy S/P insertion of spinal cord stimulator ( 05/14/23) Hx of right cataract extraction Hx of left cataract extraction History of appendectomy ( 08/2021) History of repair of hiatal hernia ( 08/2021) Hx of thumb surgery History of cardiac catheterization History of carpal tunnel release of both wrists History of bilateral cataract extraction History of left heart catheterization ( 11/2007) History of thyroidectomy History of cholecystectomy Family History Father , age 65 CAD [...] do you feel safe at home: Yes HPI HPI Details: ANUSHA VIDAL, is a 74 F who presents to the office today for follow up. PMH factor V Leiden (anticoagulation), lumbar flexion s/p kyphoplasty (pain medication). Prior workup: Gastric emptying study 04.16.21 timed at 55.04 minutes (normal 12-56 minutes). Previous study 12.07.14 timed at 32.[address] abd/pel 05.07.21 found liver cysts without lesion; hiatal hernia; retained stool throughout colon. *BGI established 1. for epigastric pain and difficulty eating. EGD performed 08.02.21 finding tortuous esophagus; LA Grade A reflux esophagitis; large hiatal hernia; gastric polyps. Biopsy found GE junction inflammation pH Probe results inconclusive for GERD. OV 3 with referral to [facility] for evaluation of hiatal hernia repair. [facility] established 08.21.21 Toupee fundoplication, laparoscopically 09.05.21 for hiatal hernia repair by Dr. Pimentel. [facility] OV 4 and doing well with recovery. OV 5.. abdominal pain, likely r/t gastroparesis start Reglan; GERD, doing well s/p fundoplication; dumping syndrome, vasovagal response versus IBS-D versus dumping, food journal. OV 8. dumping syndrome, most likely following food journal review; GERD, doing well s/p fundoplication; GERD continue PPI. Stop reglan r/t unknown SE. OV 04.22.22 dumping syndrome, doing well with antidumping diet. History of fundoplication some emesis noted last month, no reflux at this time. Dysphagia, likely dysphagia without odynophagia secondary to esophageal spasm of cricopharyngeus, Flonase and Zyrtec and hyoscyamine. OV 2.23 Feels she is doing well since LV. She has had just one instance of suspected esophageal spasm with o (more content not included)... Normal [facility] Breast imaging reportOrdered By: Efrain Klein on 08-19-2024 Study report [facility] Imaging Services [address] [place] [address] SCRN MAMM (CAD)W/BRAYAN CALDERON MR#: [id number] Acct: [id number] Name: ANUSHA VIDAL Rep #: [id number] : 1950 F 74 From: Michele Klein MD PCP: Dr. Adelina Alvarenga DO Status: REG CLI Study:SCRN MAMM (CAD)W/BRAYAN BILAT Date of Exa m: 08/19/24 Exam# [id number] Ordering Dr: Deja Alvarenga sa, DO EXAM: SCRN MAMM (CAD)W/BRAYAN BILAT DATE: 08/19/2024 CLINICAL HISTORY: F, Age 74 y/o , SCREENING. Aunts with breast cancer. Remote right excisional breast biopsy. BREAST CANCER RISK ASSESSMENT: Not assessed. TECHNIQUE: Bilateral screening digital breast tomosynthesis with 2D and 3D images. Computeraided detection. COMPARISON: Prior exam(s) dating back to August 19, 2023.. FINDINGS: Bilateral Breast Mammographic Findings: No significant masses, calcifications or other abnormalities are identified. TISSUE DENSITY: The breast tissue is heterogenously dense, which may obscure small masses. No suspicious masses, areas of developing architectural distortion, or suspicious calcifications. There has been no significant interval change. BI/SCRN MAMM (CAD)W/BRAYAN BILAT IMPRESSION: Right Breast: BIRADS 1 NEGATIVE. Left Breast: BIRADS 1 NEGATIVE. OVERALL FINAL ASSESSMENT: BIRADS 1 NEGATIVE RECOMMENDATION: ROUTINE ANNUAL FOLLOW-UP Bilateral in 1 Year Normal interval followup mammograms are recommended in 12 months. A letter with findings and recommendations will be mailed to the patient. Reading Location: [place] [address] CC: Dr. Adelina Alvarenga DO ~ Pharmacy Care Coordinator: Signed [facility] SCRN MAMM (CAD)W/BRAYAN BILATo n 08-19-2024 SCRN MAMM (CAD)W/BRAYAN BILAT [facility] Imaging Services [address] [place] [address] SCRN MAMM (CAD)W/BRAYAN BILAT MR#: [id number] Acct: [id number] Name: ANUSHA VIDAL Rep #: [id number] : 1950 F 74 From: Efrain ortiz MD PCP: Dr. Adelina Alvarenga DO Status: REG CLI Study: SCRN MAMM (CAD)W/BRAYAN BILAT Date of Exam: 08/01 Exam# [id number] Ordering Dr: Adelina Alvarenga DO EXAM: SCRN MAMM (CAD)W/BRAYAN BILAT DATE: 08/19/2024 CLINICAL HISTORY: F, Age 74 y/o , SCREENING. Aunts with breast cancer. Remote right excisional breast biopsy. BREAST CANCER RISK ASSESSMENT: Not assessed. TECHNIQUE: Bilateral screening digital breast tomosynthesis with 2D and 3D images. Computer aided detection. COMPARISON: Prior exam(s) dating back to August 19, 2023.. FINDINGS: Bilateral Breast Mammographic Findings: No significant masses, calcifications or other abnormalities are identified. TISSUE DENSITY: The breast tissue is heterogenously dense, which may obscure small masses. No suspicious masses, areas of developing architectural distortion, or suspicious calcifications. There has been no significant interval change. BI/SCRN MAMM (CAD)W/BRAYAN BILAT IMPRESSION: Right Breast: BIRADS 1 NEGATIVE. Left Breast: BIRADS 1 NEGATIVE. OVERALL FINAL ASSESSMENT: BIRADS 1 NEGATIVE RECOMMENDATION: ROUTINE ANNUAL FOLLOW-UP Bilateral in 1 Year Normal interval followup mammograms are recommended in 12 months. A letter with findings and recommendations will be mailed to the patient. Reading Location: [place] [address] CC: Dr. Adelina Alvarenga DO Pharmacy Care Coordinator: Signed Normal [facility] Cardiology Visit Reporton Cardiology Visit Report [facility] Heart [address] [place] [address] OFFICE VISIT Date of Service: 08/04/24 MR#: [id number] Acct: [id number] Name: ANUSHA VIDAL Rep #: [id number] : 1950 Provider: Dr. Danny mercado MD Age/Sex: 74/F [place] [facility] [place] Status: Signed HPI HPI History of Present Illness Details: Patient is a 74-year-old white female that comes in today for monitoring of her bicuspid aortic valve. The patient status post hiatal hernia repair at [facility] June 15, 2024. She reports she still getting over that and having some atypical type sharp type chest symptoms and some very light pressure sensations in her left shoulder. She also complains of some palpitations mainly at night that resolved with her atenolol. She denies any syncope or near syncope. She does have a history of hypertension and hyperlipidemia and a longstanding history of atypical chest pains. She also has factor V Leiden deficiency and is on Coumadin. Patient reports that she has been stable with her symptoms over the last several months she had a negative pharmacologic nuclear stress test June 18, 2023 Intake Vital Signs 03/22/24 14:09 08/04/24 12:56 Height 4 ft 11 in 4 ft 11 in Weight: 125 lb BMI 25.2 BP 155/85 H Blood Pressure Location Lt brachial Position Sitting Respiration 18 Pulse 54 L Pulse Source Monitor Pulse Oximetry (%) 96 Oxygen Delivery Method room air Intake Visit Reasons: 6 M [employer] Receiver Required: No Accompanied by: Is patient in pain?: No Allergies Iodinated Contrast Media (Iodinated Contrast Media - IV Dye) Allergy (Verified 08/04/24 12:57) Hives levofloxacin Adverse Reaction (Verified 08/04/24 12:57) abdominal pain naproxen (From Naprosyn) Adverse Reaction (Verified 08/04/24 12:57) Nausea Medications ???Medication ???Instructions ???Recorded ???Confirmed ???Type tizanidine 4 mg tablet 4 mg PO QHS SPASMS 10/27/20 History polyethylene glycol 3350 17 17 g PO PRN PRN Constipation 08/2108/04/24 History gram/dose oral powder (Miralax) multivitamin with minerals-folic 2 tab PO DAILY 08/28/21 08/04/24 H istory acid 200 mcg chewable tablet (Multivitamin Gummies) calcium 600 mg (as 1 cap PO DAILY 06/11/23 08/04/24 H istory carbonate)-vitamin D3 25 mcg (1,000 unit) capsule warfarin 2 mg tablet 2 mg PO SUMOWEFRSA 06/11/23 History warfarin 3 mg tablet 3 mg PO TUTH BLOOD THINNER 4 08/04/24 History atenolol 25 mg tablet 25 mg PO QHS Dose was increased. 0 11/05/23 08/04/24 Rx #135 tabs acetaminophen 500 mg tablet 500 mg PO Q6H PRN Pain 01/30/24 History levothyroxine 75 mcg tablet 75 mcg PO QDAY 01/30/24 08/04/24 H istory simvastatin 40 mg tablet 40 mg PO QHS CHOLESTEROL #90 tabs 03/30/24 08/04/24 Rx promethazine 12.5 mg tablet 12.5 mg PO Q4-6H PRN 06/23/2410/24 History lidocaine oral solution PO DAILY PRN 08/04/24 History Ejection fraction %: 55 Have you fallen in the past year?: No PFSH Medical History Ambulates with cane History of edema Loss of consciousness Gastric reflux History of pain when walking Dysphagia Wears glasses Cancer Thyroid disease High cholesterol DVT (deep venous thrombosis) Blood disorder Injury of back Back pain TIA (transient ischemic attack) History of IBS Shortness of breath on exertion History of stress test History of echocardiogram Normal stress echocardiogram Cardiology follow-up encounter History of irregular heartbeat Chest pain Abdominal pain Essential (primary) hypertension Pure hypercholesterolemia Palpitations Atherosclerotic heart disease of [place] coronary artery without angina pectoris History of deep vein thrombophlebitis of lower extremity Arthritis Dyspnea on exertion Atypical chest pain Factor V deficiency Vertigo History of TIA (transient ischemic attack) GERD (gastroesophageal reflux disease) History of thyroid cancer Chronic back pain Bicuspid aortic valve Hypothyroidism (acquired) Surgical History Hx of colonoscopy S/P insertion of spinal cord stimulator ( 05/14/23) Hx of right cataract extraction Hx of left cataract extraction History of appendectomy ( 08/2021) History of repair of hiatal hernia ( 08/2021) Hx of thumb surgery History of cardiac catheterization History of carpal tunnel release of both wrists History of bilateral cataract extraction History of left heart catheterization ( 11/2007) History of thyroidectomy History of cholecystectomy Family History Father , age 65 CAD (coronary ar (more content not included)... Normal [facility] Cerv Spine 2 or 3 Viewson Cerv Spine 2 or 3 Views [facility] Imaging Services [address] [place], [place] [id number] Cerv Spine 2 or 3 Views MR#: [id number] Acct: [id number] Name: ANUSHA VIDAL Rep #: [id number] : 1950 F 74 From: Daniel Martin DO PCP: Dr. Adelina Alvarenga DO Status: REG CLI Study: Cerv Spine 2 or 3 Views Date of Exam: 07/13/24 Exam# [id number] Ordering Dr: Adama Walters MD PROCEDURE: CERV SPINE 2 OR 3 VIEWS REASON FOR EXAM: Spondylosis without myelopathy. TECHNIQUE: 3 views of the cervical spine. COMPARISON: 10/17/2021. FINDINGS: Cervical vertebral bodies are seen to the upper thoracic level on the sagittal view. There is mild levoscoliosis of the mid to upper cervical spine. Cervical vertebral bodies maintain a normal height. There is mild anterolisthesis of C4-C5 and mild retrolisthesis of C5-C6 and C6-C7 on a chronic basis. Multilevel degenerative changes are present which are greatest from C5-C7 with severe disc space narrowing and endplate spurring. No acute fracture or subluxation is present. Prevertebral soft tissues are unremarkable. Odontoid process is intact. Atlantodental interval is intact with degenerative changes. Lateral masses align. RAD/Cerv Spine 2 or 3 Views IMPRESSION: 1. No acute cervical spine fracture. 2. Multilevel degenerative changes greatest from C5-C7 which has progressed at C6-C7. Reading Location: [facility] CC: Dr. Adama Walters MD; Dr. Adelina Alvarenga DO Pharmacy Care Coordinator: Signed Normal [facility] Thoracic Spine 2 Viewson Thoracic Spine [address] [facility] Imaging Services [address] [place], [place] [id number] Thoracic Spine 2 Views MR#: [id number] Acct: [id number] Name: ANUSHA VIDAL Rep #: [id number] : 1950 F 74 From: Severino Clark MD PCP: Dr. Adelina Alvarenga DO Status: REG CLI Study: Thoracic Spine 2 Views Date of Exam: 07/13/24 Exam# [id number] Ordering Dr: Adama Walters MD EXAM: XR Thoracic Spine, 2 Views CLINICAL INDICATION: TECHNIQUE: Frontal and lateral views of the thoracic spine. COMPARISON: No relevant prior studies available. FINDINGS: VERTEBRAE: Kyphotic curvature of the thoracic spine. Vertebroplasty of the midthoracic vertebrae. Degenerative disc disease and facet arthropathy throughout the thoracic spine. No acute fracture. DISC SPACES: See above. SOFT TISSUES: Unremarkable. RAD/Thoracic Spine 2 Views IMPRESSION: 1. No acute fracture. 2. Degenerative changes thoracic spine as described. Reading Location: [facility] CC: Dr. Adama Walters MD; Dr. Adelina Alvarenga DO Pharmacy Care Coordinator: Signed Normal [facility] [id number]-Bhehfzt DOrdered By: Sacha Alvarenga on 07-01-2024 Vitamin D 25-Hydroxy 33.5 ng/mL [facility] Comment on above: Vitamin D 25(OH) Sta tus Range Deficiency <20 ng/mL (50nmol/L) Insufficiency 20 - 30 ng/mL (50 - 75 nmol/L) Sufficiency 30 - 100 ng/mL (75 - 250 nmol/L) Toxicity >100 ng/mL (>250 nmol/L) Absolute lymphocyte countOrd ered By: Adelina Alvarenga on 07-01-2024 Lymphocytes Auto (Unsp spec) [#/Vol] 1.76 10*3/uL 0.83-4.51 [facility] Absolute neutrophil countOrd ered By: Adelina Alvarenga on 07-01-2024 Neutrophils (Bld) [#/Vol] 2.6 10*3/uL 2.0-7.7 [facility] Albumin to globulin ratioOrd ered By: Adelina Alvarenga on 07-01-2024 Albumin/Globulin [Mass ratio] 1.1 {ratio} 0.9-2.4 [facility] Automated lymphocyte count a s percentage of total leukocytesOrdered By: Adelina Alvarenga on 07-01-2024 Lymphocytes/100 WBC Auto (Unsp spec) 35.0 % 19-41 [facility] Basophil percentageOrdered B y: Adelina Alvarenga on 07-01-2024 Basophils/100 WBC (Bld) 1.0 % 0-1 [facility] Bilirubin, totalOrdered By: Adelina Devantemanav on 07-01-2024 Bilirubin [Mass/Vol] 0.30 mg/dL 0.20-1.00 [facility] Comment on above: For patients on eltr ombopag therapy, use of Dimension [place] TBIL is not recommended. Blood urea nitrogen (BUN)/cr eatinine ratioOrdered By: Adelina Alvarenga on 07-01-2024 Urea nitrogen/Creatinine [Mass ratio] 16.7 mg/mg 10- [facility] CBC W/Diff, Automatedon 06-04 Absolute Lymph 1.76 X10 3/uL Normal 0.83-4.51 [facility] Comment on above: Performed By: #### L 506.1000, L501.9520, L506.0400, L500.4050, L501.49796, L100.0100 #### [facility] [address] [place], [address] Absolute Neut 2.6 X10 3/uL Normal 2.0-7.7 [facility] Comment on above: Performed By: #### L 506.1000, L501.9520, L506.0400, L500.4050, L501.79907, L100.0100 #### [facility] [address] [place], [address] Basophils/100 WBC (Bld) 1.0 % Normal 0-1 [facility] Comment on above: Performed By: #### L 506.1000, L501.9520, L506.0400, L500.4050, L501.63980, L100.0100 #### [facility] [address] [place], [address] Eosinophils/100 WBC (Bld) 4.0 % Normal 0-5 [facility] Comment on above: Performed By: #### L 506.1000, L501.9520, L506.0400, L500.4050, L501.05929, L100.0100 #### [facility] [address] [place], [address] Erythrocyte distribution width (RBC) [Ratio] 13.2 % Normal 11.6-14.6 [facility] Comment on above: Performed By: #### L 506.1000, L501.9520, L506.0400, L500.4050, L501.11326, L100.0100 #### [facility] [address] [place], [address] Hematocrit (Bld) [Volume fraction] 40.3 % Normal 37-47 [facility] Comment on above: Performed By: #### L 506.1000, L501.9520, L506.0400, L500.4050, L501.35619, L100.0100 #### [facility] [address] [place], [address] Hemoglobin (Bld) [Mass/Vol] 13.2 g/dL Normal 12.0-15.0 [facility] Comment on above: Performed By: #### L 506.1000, L501.9520, L506.0400, L500.4050, L501.48942, L100.0100 #### [facility] [address] [place], [address] IG% 0.400 Normal 0.0-0.9 [facility] Comment on above: Result Comment: IG% - Immature Granulocytes (promyelocytes, myelocytes and metamyelocytes) > 1% indicates that a LEFT SHIFT is Present. Performed By: #### L 506.1000, L501.9520, L506.0400, L500.4050, L501.46367, L100.0100 #### [facility] [address] [place], [address] Lymphocytes/100 WBC (Bld) 35.0 % Normal 19-41 [facility] Comment on above: Performed By: #### L 506.1000, L501.9520, L506.0400, L500.4050, L501.85135, L100.0100 #### [facility] [address] [place], [address] MCH (RBC) [Entitic mass] 30.8 pg Normal 27.0-32.0 [facility] Comment on above: Performed By: #### L 506.1000, L501.9520, L506.0400, L500.4050, L501.84450, L100.0100 #### [facility] [address] [place], [address] MCHC (RBC) [Mass/Vol] 32.8 g/dL Normal 32-36 [facility] Comment on above: Performed By: #### L 506.1000, L501.9520, L506.0400, L500.4050, L501.29925, L100.0100 #### [facility] [address] [place], [address] MCV (RBC) [Entitic vol] 93.9 fL Normal 81-99 [facility] Comment on above: Performed By: #### L 506.1000, L501.9520, L506.0400, L500.4050, L501.54599, L100.0100 #### [facility] [address] [place] [place], [address] Monocytes/100 WBC (Bld) 7.2 % Normal 0-[address] [facility] Comment on above: Performed By: #### L 506.1000, L501.9520, L506.0400, L500.4050, L501.35928, L100.0100 #### [facility] [address] [place], [address] Neutrophils/100 WBC (Bld) 52.4 % Normal 47-70 [facility] Comment on above: Performed By: #### L 506.1000, L501.9520, L506.0400, L500.4050, L501.54203, L100.0100 #### [facility] [address] [place], [address] Nucleated RBC (Bld) [#/Vol] 0 10*3/uL Normal 0-5 [facility] Comment on above: Performed By: #### L 506.1000, L501.9520, L506.0400, L500.4050, L501.33094, L100.0100 #### [facility] [address] [place], [address] Platelet mean volume (Bld) [Entitic vol] 9.8 fL Normal 6.2-12.0 [facility] Comment on above: Performed By: #### L 506.1000, L501.9520, L506.0400, L500.4050, L501.28678, L100.0100 #### [facility] [address] [place], [address] Platelets (Bld) [#/Vol] 393 10*3/uL Normal 150-450 [facility] Comment on above: Performed By: #### L 506.1000, L501.9520, L506.0400, L500.4050, L501.56382, L100.0100 #### [facility] [address] [place], [address] RBC (Bld) [#/Vol] 4.29 10*6/uL Normal 4.2-5.4 [facility] Comment on above: Performed By: #### L 506.1000, L501.9520, L506.0400, L500.4050, L501.06602, L100.0100 #### [facility] [address] [place], [address] RDW SD 45.6 fl High 35.1-43.9 [facility] Comment on above: Performed By: #### L 506.1000, L501.9520, L506.0400, L500.4050, L501.43630, L100.0100 #### [facility] [address] [place], [address] WBC (Bld) [#/Vol] 5.0 10*3/uL Normal 4.4-11.0 [facility] Comment on above: Performed By: #### L 506.1000, L501.9520, L506.0400, L500.4050, L501.43765, L100.0100 #### [facility] [address] [place], [address] Absolute Lymph 1.16 X10 3/uL Normal 0.83-4.51 [facility] Comment on above: Result Comment: SEE HUNG FOR INFORMATION Performed By: #### L 509.1000, L501.2276, L100.0100, L9999.0010 ####[facility] [address] [place], [address] Absolute Neut 11.9 X10 3/uL High 2.0-7.7 [facility] Comment on above: Result Comment: SEE HUNG FOR INFORMATION Performed By: #### L 509.1000, L501.2276, L100.0100, L9999.0010 ####[facility] [address] [place], [address] BASO# 0.03 X10 3/uL Normal [facility] Comment on above: Result Comment: SEE HUNG FOR INFORMATION Performed By: #### L 509.1000, L501.2276, L100.0100, L9999.0010 ####[facility] [address] [place], [address] Basophils/100 WBC (Bld) 0.2 % Normal 0-1 [facility] Comment on above: Result Comment: SEE HUNG FOR INFORMATION Performed By: #### L 509.1000, L501.2276, L100.0100, L9999.0010 ####[facility] [address] [place], [address] EOS# 0.00 X10 3/uL Normal [facility] Comment on above: Result Comment: SEE HUNG FOR INFORMATION Performed By: #### L 509.1000, L501.2276, L100.0100, L9999.0010 ####[facility] [address] [place], [address] Eosinophils/100 WBC (Bld) 0.0 % Normal 0-5 [facility] Comment on above: Result Comment: SEE HUNG FOR INFORMATION Performed By: #### L 509.1000, L501.2276, L100.0100, L9999.0010 ####[facility] [address] [place], [address] Erythrocyte distribution width (RBC) [Ratio] 13.5 % Normal 11.6-14.6 [facility] Comment on above: Result Comment: SEE HUNG FOR INFORMATION Performed By: #### L 509.1000, L501.2276, L100.0100, L9999.0010 ####[facility] [address] [place], [address] Hematocrit (Bld) [Volume fraction] 43.2 % Normal 37-47 [facility] Comment on above: Result Comment: SEE HUNG FOR INFORMATION Performed By: #### L 509.1000, L501.2276, L100.0100, L9999.0010 ####[facility] [address] [place], [address] Hemoglobin (Bld) [Mass/Vol] 13.9 g/dL Normal 12.0-15.0 [facility] Comment on above: Result Comment: SEE HUNG FOR INFORMATION Performed By: #### L 509.1000, L501.2276, L100.0100, L9999.0010 ####[facility] [address] [place], [address] IG# 0.080 X10 3/uL High 0.0-0.0 [facility] Comment on above: Result Comment: SEE HUNG FOR INFORMATION Performed By: #### L 509.1000, L501.2276, L100.0100, L9999.0010 ####[facility] [address] [place], [address] IG% 0.600 Normal 0.0-0.9 [facility] Comment on above: Result Comment: SEE HUNG FOR INFORMATION IG% - Immature Granulocytes (promyelocytes, myelocytes and metamyelocytes) > 1% indicates that a LEFT SHIFT is Present. Performed By: #### L 509.1000, L501.2276, L100.0100, L9999.0010 ####[facility] [address] [place], [address] LYMPH# 1.16 X10 3/ul Normal 0.83-4.51 [facility] Comment on above: Result Comment: SEE HUNG FOR INFORMATION Performed By: #### L 509.1000, L501.2276, L100.0100, L9999.0010 ####[facility] [address] [place], [address] Lymphocytes/100 WBC (Bld) 8.6 % Low 19-41 [facility] Comment on above: Result Comment: SEE HUNG FOR INFORMATION Performed By: #### L 509.1000, L501.2276, L100.0100, L9999.0010 ####[facility] [address] [place], [address] MCH (RBC) [Entitic mass] 29.4 pg Normal 27.0-32.0 [facility] Comment on above: Result Comment: SEE HUNG FOR INFORMATION Performed By: #### L 509.1000, L501.2276, L100.0100, L9999.0010 ####[facility] [address] [place], [address] MCHC (RBC) [Mass/Vol] 32.2 g/dL Normal 32-36 [facility] Comment on above: Result Comment: SEE HUNG FOR INFORMATION Performed By: #### L 509.1000, L501.2276, L100.0100, L9999.0010 ####[facility] [address] [place], [address] MCV (RBC) [Entitic vol] 91.5 fL Normal 81-[address] [facility] Comment on above: Result Comment: SEE HUNG FOR INFORMATION Performed By: #### L 509.1000, L501.2276, L100.0100, L9999.0010 ####[facility] [address] [place], [address] MONO # 0.39 X10 3/uL Normal [facility] Comment on above: Result Comment: SEE HUNG FOR INFORMATION Performed By: #### L 509.1000, L501.2276, L100.0100, L9999.0010 ####[facility] [address] [place], [address] Monocytes/100 WBC (Bld) 2.9 % Normal 0-[address] [facility] Comment on above: Result Comment: SEE HUNG FOR INFORMATION Performed By: #### L 509.1000, L501.2276, L100.0100, L9999.0010 ####[facility] [address] [place], [address] Neutrophil # 11.85 X10 3/uL High 2.7-7.7 [facility] Comment on above: Result Comment: SEE HUNG FOR INFORMATION Performed By: #### L 509.1000, L501.2276, L100.0100, L9999.0010 ####[facility] [address] [place], [address] Neutrophils/100 WBC (Bld) 87.7 % High 47-70 [facility] Comment on above: Result Comment: SEE HUNG FOR INFORMATION Performed By: #### L 509.1000, L501.2276, L100.0100, L9999.0010 ####[facility] [address] [place], [address] Nucleated RBC (Bld) [#/Vol] 0 10*3/uL Normal 0-5 [facility] Comment on above: Result Comment: SEE HUNG FOR INFORMATION Performed By: #### L 509.1000, L501.2276, L100.0100, L9999.0010 ####[facility] [address] [place], [address] Platelet mean volume (Bld) [Entitic vol] 10.7 fL Normal 6.2-12.0 [facility] Comment on above: Result Comment: SEE HUNG FOR INFORMATION Performed By: #### L 509.1000, L501.2276, L100.0100, L9999.0010 ####[facility] [address] [place], [address] Platelets (Bld) [#/Vol] 352 10*3/uL Normal 150-450 [facility] Comment on above: Result Comment: SEE HUNG FOR INFORMATION Performed By: #### L 509.1000, L501.2276, L100.0100, L9999.0010 ####[facility] [address] [place], [address] RBC (Bld) [#/Vol] 4.72 10*6/uL Normal 4.2-5.4 [facility] Comment on above: Result Comment: SEE HUNG FOR INFORMATION Performed By: #### L 509.1000, L501.2276, L100.0100, L9999.0010 ####[facility] [address] [place], [address] RDW SD 45.7 fl High 35.1-43.9 [facility] Comment on above: Result Comment: SEE HUNG FOR INFORMATION Performed By: #### L 509.1000, L501.2276, L100.0100, L9999.0010 ####[facility] [address] [place], [address] WBC (Bld) [#/Vol] 13.5 10*3/uL High 4.4-11.0 [facility] Comment on above: Result Comment: SEE HUNG FOR INFORMATION Performed By: #### L 509.1000, L501.2276, L100.0100, L9999.0010 ####[facility] [address] [place], [address] Absolute Neut Normal 2.0-7.7 [facility] Comment on above: Result Comment: WRON G PT. COMING IN FOR A REDRAW Performed By: #### L 100.0100, L501.9520, L500.4050, L506.0400, L506.1000 ####[facility] [address] [place], [address] HCT Normal 37-47 [facility] Comment on above: Result Comment: WRON G PT. COMING IN FOR A REDRAW Performed By: #### L 100.0100, L501.9520, L500.4050, L506.0400, L506.1000 ####[facility] [address] [place], [address] HGB Normal 12.0-15.0 [facility] Comment on above: Result Comment: WRON G PT. COMING IN FOR A REDRAW Performed By: #### L 100.0100, L501.9520, L500.4050, L506.0400, L506.1000 ####[facility] [address] [place], [address] MCH Normal 27.0-32.0 [facility] Comment on above: Result Comment: WRON G PT. COMING IN FOR A REDRAW Performed By: #### L 100.0100, L501.9520, L500.4050, L506.0400, L506.1000 ####[facility] [address] [place], [address] MCHC Normal 32-36 [facility] Comment on above: Result Comment: WRON G PT. COMING IN FOR A REDRAW Performed By: #### L 100.0100, L501.9520, L500.4050, L506.0400, L506.1000 ####[facility] [address] [place], [address] MCV Normal 81-99 [facility] Comment on above: Result Comment: WRON G PT. COMING IN FOR A REDRAW Performed By: #### L 100.0100, L501.9520, L500.4050, L506.0400, L506.1000 ####[facility] [address] [place], [address] NEUT% Normal 47-70 [facility] Comment on above: Result Comment: WRON G PT. COMING IN FOR A REDRAW Performed By: #### L 100.0100, L501.9520, L500.4050, L506.0400, L506.1000 ####[facility] [address] [place], [address] PLT Normal 150-450 [facility] Comment on above: Result Comment: WRON G PT. COMING IN FOR A REDRAW Performed By: #### L 100.0100, L501.9520, L500.4050, L506.0400, L506.1000 ####[facility] [address] [place], [address] RBC Normal 4.2-5.4 [facility] Comment on above: Result Comment: WRON G PT. COMING IN FOR A REDRAW Performed By: #### L 100.0100, L501.9520, L500.4050, L506.0400, L506.1000 ####[facility] [address] [place], [address] RDW CV Normal 11.6-14.6 [facility] Comment on above: Result Comment: WRON G PT. COMING IN FOR A REDRAW Performed By: #### L 100.0100, L501.9520, L500.4050, L506.0400, L506.1000 ####[facility] [address] [place], [address] RDW SD Normal 35.1-43.9 [facility] Comment on above: Result Comment: WRON G PT. COMING IN FOR A REDRAW Performed By: #### L 100.0100, L501.9520, L500.4050, L506.0400, L506.1000 ####[facility] [address] [place], [address] WBC Normal 4.4-11.0 [facility] Comment on above: Result Comment: MACRINAON G PT. COMING IN FOR A REDRAW Performed By: #### L 100.0100, L501.9520, L500.4050, L506.0400, L506.1000 ####[facility] [address] [place], [address] Carbon dioxide measurementOr dered By: Adelina Alvarenga on 07-01-2024 CO2 [Moles/Vol] 24.0 mmol/L 21.0-32.0 [facility] Chloride measurementOrdered By: Adelina Alvarenga on 07-01-2024 Chloride [Moles/Vol] 110 mmol/L High 98-107 [facility] Comprehensive Metabolic Prof ilon 07-01-2024 Albumin [Mass/Vol] 3.4 g/dL Normal 3.2-5.0 [facility] Comment on above: Performed By: #### L 506.1000, L501.9520, L506.0400, L500.4050, L501.42371, L100.0100 #### [facility] [address] [place], [address] Albumin/Globulin [Mass ratio] 1.1 {ratio} Normal 0.9-2.4 [facility] Comment on above: Performed By: #### L 506.1000, L501.9520, L506.0400, L500.4050, L501.47250, L100.0100 #### [facility] [address] [place], [address] ALK P 103 U/L Normal 45-117 [facility] Comment on above: Performed By: #### L 506.1000, L501.9520, L506.0400, L500.4050, L501.90289, L100.0100 #### [facility] [address] [place], [address] ALT [Catalytic activity/Vol] 25 U/L Normal 13-56 [facility] Comment on above: Performed By: #### L 506.1000, L501.9520, L506.0400, L500.4050, L501.53469, L100.0100 #### [facility] [address] [place], [address] AST [Catalytic activity/Vol] 30 U/L Normal 15-37 [facility] Comment on above: Performed By: #### L 506.1000, L501.9520, L506.0400, L500.4050, L501.48580, L100.0100 #### [facility] [address] [place], [address] Bilirubin [Mass/Vol] 0.30 mg/dL Normal 0.20-1.00 [facility] Comment on above: Result Comment: For patients on eltrombopag therapy, use of Dimension Hume TBIL is not recommended. Performed By: #### L 506.1000, L501.9520, L506.0400, L500.4050, L501.02336, L100.0100 #### [facility] [address] [place], [address] BUN/CRE 16.7 RATIO Normal 10-20 [facility] Comment on above: Performed By: #### L 506.1000, L501.9520, L506.0400, L500.4050, L501.08813, L100.0100 #### [facility] [address] [place], [address] CA,Total 8.7 mg/dL Normal 8.5-10.1 [facility] Comment on above: Performed By: #### L 506.1000, L501.9520, L506.0400, L500.4050, L501.91561, L100.0100 #### [facility] [address] [place], [address] Chloride [Moles/Vol] 110 mmol/L High 98-107 [facility] Comment on above: Performed By: #### L 506.1000, L501.9520, L506.0400, L500.4050, L501.66448, L100.0100 #### [facility] [address] [place], [address] CO2 [Moles/Vol] 24.0 mmol/L Normal 21.0-32.0 [facility] Comment on above: Performed By: #### L 506.1000, L501.9520, L506.0400, L500.4050, L501.69682, L100.0100 #### [facility] [address] [place], [address] Creatinine [Mass/Vol] 0.84 mg/dL Normal 0.55-1.02 [facility] Comment on above: Result Comment: The validity of the calculated GFR GFRAA in patients over 70 years has not been determined. Clinical correlation is essential. Performed By: #### L 506.1000, L501.9520, L506.0400, L500.4050, L501.95462, L100.0100 #### [facility] [address] [place], [address] EST GFR - AA 86 mL/min Normal >60 [facility] Comment on above: Result Comment: Afri can Portuguese GFR Calc Performed By: #### L 506.1000, L501.9520, L506.0400, L500.4050, L501.79365, L100.0100 #### [facility] [address] [place], [address] GAP 7 Normal 5-15 [facility] Comment on above: Performed By: #### L 506.1000, L501.9520, L506.0400, L500.4050, L501.19471, L100.0100 #### [facility] [address] [place], [address] GFR/1.73 sq M.predicted among non-blacks MDRD (S/P/Bld) [Vol rate/Area] 71 mL/min/{1.73_m2} Normal >60 [facility] Comment on above: Result Comment: Non- GFR Calc Performed By: #### L 506.1000, L501.9520, L506.0400, L500.4050, L501.86847, L100.0100 #### [facility] [address] [place], [address] Globulin (S) [Mass/Vol] 3.0 g/dL Normal 2.2-4.[address] [facility] Comment on above: Performed By: #### L 506.1000, L501.9520, L506.0400, L500.4050, L501.72154, L100.0100 #### [facility] [address] [place], [address] Glucose [Mass/Vol] 96 mg/dL Normal 74-106 [facility] Comment on above: Performed By: #### L 506.1000, L501.9520, L506.0400, L500.4050, L501.17587, L100.0100 #### [facility] [address] [place], [address] Potassium [Moles/Vol] 4.4 mmol/L Normal 3.5-5.1 [facility] Comment on above: Performed By: #### L 506.1000, L501.9520, L506.0400, L500.4050, L501.92443, L100.0100 #### [facility] [address] [place], [address] Sodium [Moles/Vol] 142 mmol/L Normal 136-145 [facility] Comment on above: Performed By: #### L 506.1000, L501.9520, L506.0400, L500.4050, L501.00535, L100.0100 #### [facility] [address] [place], [address] T PROT 6.4 g/dL Normal 6.4-8.2 [facility] Comment on above: Performed By: #### L 506.1000, L501.9520, L506.0400, L500.4050, L501.96367, L100.0100 #### [facility] [address] [place], [address] Urea nitrogen [Mass/Vol] 14 mg/dL Normal 7-18 [facility] Comment on above: Performed By: #### L 506.1000, L501.9520, L506.0400, L500.4050, L501.02356, L100.0100 #### [facility] [address] [place], [address] Albumin [Mass/Vol] 3.5 g/dL Normal 3.2-5.0 [facility] Comment on above: Result Comment: ALEIDA Vargas PT. COMING IN FOR A REDRAW Performed By: #### L 100.0100, L501.9520, L500.4050, L506.0400, L506.1000 ####[facility] [address] [place], [address] Albumin/Globulin [Mass ratio] 1.1 {ratio} Normal 0.9-2.4 [facility] Comment on above: Result Comment: MACRINAON G PT. COMING IN FOR A REDRAW Performed By: #### L 100.0100, L501.9520, L500.4050, L506.0400, L506.1000 ####[facility] [address] [place], [address] ALK P 107 U/L Normal 45-117 [facility] Comment on above: Result Comment: MACRINAON G PT. COMING IN FOR A REDRAW Performed By: #### L 100.0100, L501.9520, L500.4050, L506.0400, L506.1000 ####[facility] [address] [place], [address] ALT [Catalytic activity/Vol] 32 U/L Normal 13-56 [facility] Comment on above: Result Comment: MACRINAON G PT. COMING IN FOR A REDRAW Performed By: #### L 100.0100, L501.9520, L500.4050, L506.0400, L506.1000 ####[facility] [address] [place], [address] AST [Catalytic activity/Vol] 30 U/L Normal 15-37 [facility] Comment on above: Result Comment: WRON G PT. COMING IN FOR A REDRAW Performed By: #### L 100.0100, L501.9520, L500.4050, L506.0400, L506.1000 ####[facility] [address] [place], [address] Bilirubin [Mass/Vol] 0.40 mg/dL Normal 0.20-1.00 [facility] Comment on above: Result Comment: WRON G PT. COMING IN FOR A REDRAW For patients on eltrombopag therapy, use of Dimension Hume TBIL is not recommended. Performed By: #### L 100.0100, L501.9520, L500.4050, L506.0400, L506.1000 ####[facility] [address] [place], [address] BUN/CRE 12.0 RATIO Normal 10-20 [facility] Comment on above: Result Comment: WRON G PT. COMING IN FOR A REDRAW Performed By: #### L 100.0100, L501.9520, L500.4050, L506.0400, L506.1000 ####[facility] [address] [place], [address] CA,Total 8.6 mg/dL Normal 8.5-10.1 [facility] Comment on above: Result Comment: WRON G PT. COMING IN FOR A REDRAW Performed By: #### L 100.0100, L501.9520, L500.4050, L506.0400, L506.1000 ####[facility] [address] [place], [address] Chloride [Moles/Vol] 107 mmol/L Normal 98-107 [facility] Comment on above: Result Comment: WRON G PT. COMING IN FOR A REDRAW Performed By: #### L 100.0100, L501.9520, L500.4050, L506.0400, L506.1000 ####[facility] [address] [place], [address] CO2 [Moles/Vol] 24.0 mmol/L Normal 21.0-32.0 [facility] Comment on above: Result Comment: WRON G PT. COMING IN FOR A REDRAW Performed By: #### L 100.0100, L501.9520, L500.4050, L506.0400, L506.1000 ####[facility] [address] [place], [address] Creatinine [Mass/Vol] 0.83 mg/dL Normal 0.55-1.02 [facility] Comment on above: Result Comment: ALEIDA Vargas PT. COMING IN FOR A REDRAW The validity of the calculated GFR GFRAA in patients over 70 years has not been determined. Clinical correlation is essential. Performed By: #### L 100.0100, L501.9520, L500.4050, L506.0400, L506.1000 ####[facility] [address] [place], [address] EST GFR - AA 87 mL/min Normal >60 [facility] Comment on above: Result Comment: ALEIDA Vargas PT. COMING IN FOR A REDRAW GFR Calc Performed By: #### L 100.0100, L501.9520, L500.4050, L506.0400, L506.1000 ####[facility] [address] [place], [address] GAP 7 Normal 5-15 [facility] Comment on above: Result Comment: ALEIDA Vargas PT. COMING IN FOR A REDRAW Performed By: #### L 100.0100, L501.9520, L500.4050, L506.0400, L506.1000 ####[facility] [address] [place], [address] GFR/1.73 sq M.predicted among non-blacks MDRD (S/P/Bld) [Vol rate/Area] 72 mL/min/{1.73_m2} Normal >60 [facility] Comment on above: Result Comment: ALEIDA Vargas PT. COMING IN FOR A REDRAW Non- GFR Calc Performed By: #### L 100.0100, L501.9520, L500.4050, L506.0400, L506.1000 ####[facility] [address] [place], [address] Globulin (S) [Mass/Vol] 3.3 g/dL Normal 2.2-4.[address] [facility] Comment on above: Result Comment: MACRINAON G PT. COMING IN FOR A REDRAW Performed By: #### L 100.0100, L501.9520, L500.4050, L506.0400, L506.1000 ####[facility] [address] [place], [address] Glucose [Mass/Vol] 98 mg/dL Normal 74-106 [facility] Comment on above: Result Comment: MACRINAON G PT. COMING IN FOR A REDRAW Performed By: #### L 100.0100, L501.9520, L500.4050, L506.0400, L506.1000 ####[facility] [address] [place], [address] Potassium [Moles/Vol] 4.6 mmol/L Normal 3.5-5.1 [facility] Comment on above: Result Comment: ALEIDA G PT. COMING IN FOR A REDRAW Performed By: #### L 100.0100, L501.9520, L500.4050, L506.0400, L506.1000 ####[facility] [address] [place], [address] Sodium [Moles/Vol] 138 mmol/L Normal 136-145 [facility] Comment on above: Result Comment: MACRINAON G PT. COMING IN FOR A REDRAW Performed By: #### L 100.0100, L501.9520, L500.4050, L506.0400, L506.1000 ####[facility] [address] [place], [address] T PROT 6.8 g/dL Normal 6.4-8.2 [facility] Comment on above: Result Comment: WRON G PT. COMING IN FOR A REDRAW Performed By: #### L 100.0100, L501.9520, L500.4050, L506.0400, L506.1000 ####[facility] [address] [place], [address] Urea nitrogen [Mass/Vol] 10 mg/dL Normal 7-18 [facility] Comment on above: Result Comment: ALEIDA Vargas PT. COMING IN FOR A REDRAW Performed By: #### L 100.0100, L501.9520, L500.4050, L506.0400, L506.1000 ####[facility] [address] [place], [address] Direct serum free thyroxine (FT4) measurementOrdered By: Adelina Alvarenga on 07-01-2024 Free T4 [Mass/Vol] 1.39 ng/dL 0.76-1.46 [facility] Eosinophil percentageOrdered By: Adelina Alvarenga on 07-01-2024 Eosinophils/100 WBC (Bld) 4.0 % 0-5 [facility] Erythrocyte distribution wid th ratioOrdered By: Adelina Alvarenga on 07-01-2024 Erythrocyte distribution width (RBC) [Ratio] 13.2 % 11.6-14.6 [facility] Erythrocyte distribution wid th standard deviationOrdered By: Adelina Alvarenga on 07-01-2024 Erythrocyte distribution width (RBC) [Entitic vol] 45.6 fL High 35.1-43.9 [facility] Erythrocyte distribution width (RBC) [Ratio] 45.6 fl High 35.1-43.9 [facility] Estimated glomerular filtrat ion rate (GFR) AmericanOrdered By: Adelina Alvarenga on 07-01-2024 Estimated GFR (MDRD) Amer 86 mL/min >60 [facility] Comment on above: GFR Calc Free T3on 07-01-2024 Free T3 [Mass/Vol] 2.3 pg/mL Normal 2.18-3.98 [facility] Comment on above: Performed By: #### L 506.1000, L501.9520, L506.0400, L500.4050, L501.50656, L100.0100 #### [facility] [address], [address] Free G1Xqkpzmr By: Adelina Cadet s on 07-01-2024 Free T3 [Mass/Vol] 2.3 pg/mL 2.18-3.98 [facility] Free Triiodothyronine (T3) pg/dL 2.3 pg/mL 2.18-3.98 [facility] Glomerular filtration rate ( GFR) estimationOrdered By: Adelina Alvarenga on 07-01-2024 Estimated GFR (MDRD) Non-Af Amer 71 mL/min >60 [facility] Comment on above: Non- GFR Calc GFR/1.73 sq M.predicted among non-blacks MDRD (S/P/Bld) [Vol rate/Area] 71 mL/min/{1.73_m2} >60 [facility] Comment on above: Non- GFR Calc Glucose measurementOrdered B y: Adelina Alvarenga on 07-01-2024 Glucose [Mass/Vol] 96 mg/dL 74-106 [facility] Hematocrit Auto (Bld) [Volum e fraction]Ordered By: Adelina Alvarenga on 07-01-2024 Hematocrit (Bld) [Volume fraction] 40.3 % 37-47 [facility] Hemoglobin measurementOrdere d By: Adelina Alvarenga on 07-01-2024 Hemoglobin (Bld) [Mass/Vol] 13.2 g/dL 12.0-15.0 [facility] Immature granulocytes/100 WB C Auto (Bld)Ordered By: Adelina Alvarenga on 07-01-2024 Immature granulocytes/100 WBC (Bld) 0.400 % 0.0-0.9 [facility] Comment on above: IG% - Immature Granu locytes (promyelocytes, myelocytes and metamyelocytes) > 1% indicates that a LEFT SHIFT is Present. [id number] 07-01-2024 Ionized Calcium 1.35 mmol/L High 1.09-1.30 [facility] Comment on above: Order Comment: PT TO RETURN. WRONG PT DRAWN Result Comment: PT T O RETURN. WRONG PT DRAWN Performed By: #### L 509.1000, L501.2276, L100.0100, L9999.0010 ####[facility] [address] [place], [address] [id number] 07-01-2024 ICA Order ORDER TUBE Normal [facility] Comment on above: Order Comment: PT TO RETURN. WRONG PT DRAWN Result Comment: PT T O RETURN. WRONG PT DRAWN Performed By: #### L 300.3900 #### [facility] [address] [place], [address] Laboratory - Chemistry and C hemistry - challengeOrdered By: Adelina Alvarenga on 07-01-2024 AST [Catalytic activity/Vol] 30 U/L 15-37 [facility] Lymphocytes Auto (Unsp spec) [#/Vol]Ordered By: Adelina Alvarenga on 07-01-2024 Lymphocytes (Bld) [#/Vol] 1.76 10*3/uL 0.83-4.51 [facility] Lymphocytes/100 WBC Auto (Un sp spec)Ordered By: Adelina Alvarenga on 07-01-2024 Lymphocytes/100 WBC (Bld) 35.0 % 19-41 [facility] MCV (mean corpuscular volume ) determinationOrdered By: Adelina Alvarenga on 07-01-2024 MCV (RBC) [Entitic vol] 93.9 fL 81-99 [facility] Mean corpuscular hemoglobin (MCH) determinationOrdered By: Adelina Alvarenga on 07-01-2024 MCH (RBC) [Entitic mass] 30.8 pg 27.0-32.0 [facility] Mean corpuscular hemoglobin concentration (MCHC) determinationOrdered By: Adelina Alvarenga on 07-01-2024 MCHC (RBC) [Mass/Vol] 32.8 g/dL 32-36 [facility] Mean platelet volume determi nationOrdered By: Adelina Alvarenga on 07-01-2024 Platelet mean volume (Bld) [Entitic vol] 9.8 fL 6.2-12.0 [facility] Monocyte percentageOrdered B y: Adelina Alvarenga on 07-01-2024 Monocytes/100 WBC (Bld) 7.2 % 0-10 [facility] Neutrophil percentageOrdered By: Adelina Alvarenga on 07-01-2024 Neutrophils/100 WBC (Bld) 52.4 % 47-70 [facility] Nucleated red blood cell per centageOrdered By: Adelina Alvarenga on 07-01-2024 Nucleated RBC/100 WBC (Bld) [Ratio] 0 % 0-5 [facility] PTHINon 07-01-2024 PTH 19.4 pg/mL Normal 18.4-80.1 [facility] Comment on above: Order Comment: PT TO RETURN. WRONG PT DRAWN Result Comment: PT T O RETURN. WRONG PT DRAWN Performed By: #### L 509.1000, L501.2276, L100.0100, L9999.0010 ####[facility] [address] [place], [address] Platelet countOrdered By: Deja Alvarenga on 07-01-2024 Platelets (Bld) [#/Vol] 393 10*3/uL 150-450 [facility] Potassium measurementOrdered By: Adelina Alvarenga on 07-01-2024 Potassium [Moles/Vol] 4.4 mmol/L 3.5-5.1 [facility] RBC Auto (Bld) [#/Vol]Ordere d By: Adelina Alvarenga on 07-01-2024 RBC (Bld) [#/Vol] 4.29 10*6/uL 4.2-5.4 [facility] Serum anion gap measurementO rdered By: Adelina Alvarenga on 07-01-2024 Anion gap [Moles/Vol] 7 mmol/L 5-15 [facility] Serum globulin measurementOr dered By: Adelina Alvarenga on 07-01-2024 Globulin (S) [Mass/Vol] 3.0 g/dL 2.2-4.[address] [facility] Serum or plasma alanine arredondo otransferase (ALT) measurementOrdered By: Adelina Alvarenga on 07-01-2024 ALT [Catalytic activity/Vol] 25 U/L 13-56 [facility] Serum or plasma albumin darlyn urement (mass/volume)Ordered By: Adelina Alvarenga on 07-01-2024 Albumin [Mass/Vol] 3.4 g/dL 3.2-5.0 [facility] Serum or plasma alkaline prosper sphatase measurementOrdered By: Adelina Alvarenga on 07-01-2024 ALP [Catalytic activity/Vol] 103 U/L 45-117 [facility] Serum or plasma calcium darlyn urement (mass/volume)Ordered By: Adelina Alvarenga on 07-01-2024 Calcium [Mass/Vol] 8.7 mg/dL 8.5-10.1 [facility] Serum or plasma creatinine m easurement (mass/volume)Ordered By: Adelina Alvarenga on 07-01-2024 Creatinine [Mass/Vol] 0.84 mg/dL 0.55-1.02 [facility] Comment on above: The validity of the calculated GFR & GFRAA in patients over 70 years has not been determined. Clinical correlation is essential. Serum or plasma thyroid stim ulating hormone (TSH) measurement (units/volume)Ordered By: Adelina Alvarenga on 07-01-2024 TSH Qn 0.585 uIU/mL 0.358-3.740 [facility] Serum or plasma urea nitroge n measurement (mass/volume)Ordered By: Adelina Alvarenga on 07-01-2024 Urea nitrogen [Mass/Vol] 14 mg/dL 7-18 [facility] Sodium levelOrdered By: Adelina Alvarenga on 07-01-2024 Sodium [Moles/Vol] 142 mmol/L 136-145 [facility] T4 Free Directon 07-01-2024 T4 FREE DIRECT 1.39 ng/dL Normal 0.76-1.46 [facility] Comment on above: Performed By: #### L 506.1000, L501.9520, L506.0400, L500.4050, L501.68560, L100.0100 #### [facility] [address] [facility] [place], [address] T4 FREE DIRECT 1.33 ng/dL Normal 0.76-1.46 [facility] Comment on above: Order Comment: WRONG PT. COMING IN FOR A REDRAWWRONG PT. BEING REDRAWN Result Comment: WRON G PT. COMING IN FOR A REDRAW Performed By: #### L 100.0100, L501.9520, L500.4050, L506.0400, L506.1000 ####[facility] [id number] [place], [place], [phone] TSH QnOrdered By: Adelina Alvarenga on 07-01-2024 Thyroid Stimulating Hormone (TSH) 0.585 uIU/mL 0.358-3.740 [facility] Thyroid Stim Hormone (TSH)on 07-01-2024 TSH 0.585 uIU/mL Normal 0.358-3.740 [facility] Comment on above: Performed By: #### L 506.1000, L501.9520, L506.0400, L500.4050, L501.10530, L100.0100 #### [facility] [address] [place], [place], [phone] TSH 0.671 uIU/mL Normal 0.358-3.740 [facility] Comment on above: Order Comment: WRONG PT. COMING IN FOR A REDRAW Result Comment: ALEIDA G PT. COMING IN FOR A REDRAW Performed By: #### L 100.0100, L501.9520, L500.4050, L506.0400, L506.1000 ####[facility] [id number] [place], [place], [phone] Total proteinOrdered By: Delfina Alvarenga on 07-01-2024 Protein [Mass/Vol] 6.4 g/dL 6.4-8.2 [facility] Vitamin D,25 Hydroxyon 07-01 Vitamin D 25-OH 33.5 ng/mL Normal [facility] Comment on above: Result Comment: Jocelyn min D 25(OH) Status Range Deficiency <20 ng/mL (50nmol/L) Insufficiency 20 - 30 ng/mL (50 - 75 nmol/L) Sufficiency 30 - 100 ng/mL (75 - 250 nmol/L) Toxicity >100 ng/mL (>250 nmol/L) Performed By: #### L 506.1000, L501.9520, L506.0400, L500.4050, L501.40844, L100.0100 #### [facility] [address] [place], [address] Vitamin D 25-OH 35.6 ng/mL Normal [facility] Comment on above: Order Comment: WRONG PT. COMING IN FOR A REDRAW Result Comment: ALEIDA Vargas PT. COMING IN FOR A REDRAW Vitamin D 25(OH) Status Range Deficiency <20 ng/mL (50nmol/L) Insufficiency 20 - 30 ng/mL (50 - 75 nmol/L) Sufficiency 30 - 100 ng/mL (75 - 250 nmol/L) Toxicity >100 ng/mL (>250 nmol/L) Performed By: #### L 100.0100, L501.9520, L500.4050, L506.0400, L506.1000 #### [facility] [address] [place], [address] White blood cell (WBC) count Ordered By: Adelina Alvarenga on 07-01-2024 WBC (Bld) [#/Vol] 5.0 10*3/uL 4.4-11.0 [facility] Gastroenterology Visit Repor ton 06-23-2024 Gastroenterology Visit Report [facility] [address] [place] [address] OFFICE VISIT Date of Service: 06/23/24 MR#: [id number] Acct: [id number] Name: ERNESTINEJONA RODRIGUEZDONALD Goncalves Rep #: [id number] : 1950 Provider: Juliette Trejo DO Age/Sex: 74/F Location: [facility] [place] Status: Signed Intake Vital Signs 01/30/24 09:39 03/22/24 14:09 Height 4 ft 11 in 4 ft 11 in Intake Visit Reasons: 3 M FU Allergies Iodinated Contrast Media (Iodinated Contrast Media - IV Dye) Allergy (Verified 01/30/24 09:46) Hives levofloxacin Adverse Reaction (Verified 01/30/24 09:46) abdominal pain naproxen (From Naprosyn) Adverse Reaction (Verified 01/30/24 09:46) Nausea Medications ???Medication ???Instructions ???Recorded ???Confirmed ???Type tizanidine 4 mg tablet 4 mg PO QHS SPASMS 10/27/20 06/23/24 History polyethylene glycol 3350 17 17 g PO PRN PRN Constipation 08/21/21 06/23/24 History gram/dose oral powder (Miralax) multivitamin with minerals-folic 2 tab PO DAILY 08/28/21 06/23/24 History acid 200 mcg chewable tablet (Multivitamin Gummies) calcium 600 mg (as 1 cap PO DAILY 06/11/23 06/23/24 History carbonate)-vitamin D3 25 mcg (1,000 unit) capsule warfarin 2 mg tablet 2 mg PO SUMOWEFRSA 06/11/23 06/23/24 History warfarin 3 mg tablet 3 mg PO TUTH BLOOD THINNER 06/11/23 06/23/24 History atenolol 25 mg tablet 25 mg PO QHS Dose was increased. 11/05/23 06/23/24 Rx #135 tabs acetaminophen 500 mg tablet 500 mg PO Q6H PRN Pain 01/30/24 06/23/24 History levothyroxine 75 mcg tablet 75 mcg PO QDAY 01/30/24 06/23/24 History cephalexin 500 mg capsule 500 mg PO Q6 #20 CAPSULES 03/22/24 06/23/24 Rx simvastatin 40 mg tablet 40 mg PO QHS CHOLESTEROL #90 tabs 03/30/24 06/23/24 Rx omeprazole 20 mg capsule,delayed 20 mg PO BID #60 caps 05/18/24 06/23/24 Rx release promethazine 12.5 mg tablet 12.5 mg PO Q4-6H PRN 06/23/24 06/23/24 History Have you fallen in the past year?: No PFSH Medical History Ambulates with cane History of edema Loss of consciousness Gastric reflux History of pain when walking Dysphagia Wears glasses Cancer Thyroid disease High cholesterol DVT (deep venous thrombosis) Blood disorder Injury of back Back pain TIA (transient ischemic attack) History of IBS Shortness of breath on exertion History of stress test History of echocardiogram Normal stress echocardiogram Cardiology follow-up encounter History of irregular heartbeat Chest pain Abdominal pain Essential (primary) hypertension Pure hypercholesterolemia Palpitations Atherosclerotic heart disease of [place] coronary artery without angina pectoris History of deep vein thrombophlebitis of lower extremity Arthritis Dyspnea on exertion Atypical chest pain Factor V deficiency Vertigo History of TIA (transient ischemic attack) GERD (gastroesophageal reflux disease) History of thyroid cancer Chronic back pain Bicuspid aortic valve Hypothyroidism (acquired) Surgical History Hx of colonoscopy S/P insertion of spinal cord stimulator ( 05/14/23) Hx of right cataract extraction Hx of left cataract extraction History of appendectomy ( 08/2021) History of repair of hiatal hernia ( 08/2021) Hx of thumb surgery History of cardiac catheterization History of carpal tunnel release of both wrists History of bilateral cataract extraction History of left heart catheterization ( 11/2007) History of thyroidectomy History of cholecystectomy Family History Father , age 65 CAD [...] do you feel safe at home: Yes HPI HPI Details: ANUSHA VIDAL, is a 74 F who presents to the office today for follow up. PMH factor V Leiden (anticoagulation), lumbar flexion s/p kyphoplasty (pain medication). Prior workup: Gastric emptying study 04.16.21 timed at 55.04 minutes (normal 12-56 minutes). Previous study 7.8.15 timed at 32.[address] abd/pel 12.11.20 found liver cysts without lesion; hiatal hernia; retained stool throughout colon. *BGI established 1.14.22 for epigastric pain and difficulty eating. EGD performed 3.. finding tortuous esophagus; LA Grade A reflux esophagitis; large hiatal hernia; gastric polyps. Biopsy found GE junction inflammation pH P (more content not included)... Normal [facility] [employer] normalized rat io (INR) calculationOrdered By: Adelina Alvarenga on 06-23-2024 INR Coag (Bld) [Relative time] 1.4 {INR} [facility] Prothrombin Time w/INRon INR Coag (PPP) [Relative time] 1.4 {INR} Normal [facility] Comment on above: Performed By: #### L 300.3900 ####[facility] [address] [place], [place], [phone] PT Coag (PPP) [Time] 17.1 s High 11.7-14.9 [facility] Comment on above: Performed By: #### L 300.3900 ####[facility] [address] [place], [place], [phone] Prothrombin timeOrdered By: Adleina Alvarenga on 06-23-2024 PT Coag (PPP) [Time] 17.1 s High 11.7-14.9 [facility] CBC,PLATELETSon 06-18-2024 Erythrocyte distribution width (RBC) [Ratio] 13.2 % 10.8 - 14.9 % [facility] Hematocrit (Bld) [Volume fraction] 32.6 % Low 34.9 - 44.3 % [facility] Hemoglobin (Bld) [Mass/Vol] 10.2 g/dL Low 11.4 - 15.2 g/dL [facility] Interpretation and review of laboratory results Abnormal [facility] MCH (RBC) [Entitic mass] 30.6 pg 25.9 - 33.9 pg [facility] MCHC (RBC) [Mass/Vol] 31.3 g/dL Low 31.4 - 35.9 g/dL [facility] MCV (RBC) [Entitic vol] 97.9 fL High 79.6 - 97.7 fL [facility] Platelet mean volume (Bld) [Entitic vol] 10.5 fL 8.5 - 12.2 fL [facility] Platelets (Bld) [#/Vol] 165 10*3/uL 150 - 393 K/uL [facility] RBC (Bld) [#/Vol] 3.33 10*6/[facility] [#/Vol] 4.57 10*3/uL 3.99 - 11.19 K/uL [facility] Hematocrit (Bld) [Volume fraction] 32.6 % Low 34.9-44.3 [facility] Comment on above: Performed By: #### C HM7 #### [facility] (DEFAULT) [address] [place] [address] Hemoglobin (Bld) [Mass/Vol] 10.2 g/dL Low 11.4-15.2 [facility] Comment on above: Performed By: #### C HM7 #### [facility] (DEFAULT) [address] [place] [address] MCV (RBC) [Entitic vol] 97.9 fL High 79.6-97.7 [facility] Comment on above: Performed By: #### C HM7 #### [facility] (DEFAULT) [address] [place] [address] Mean Cell Hgb 30.6 pg Normal 25.9-33.9 [facility] Comment on above: Performed By: #### C HM7 #### [facility] (DEFAULT) [address] [place] [address]8214 Mean Cell Hgb Conc 31.3 g/dL Low 31.4-35.9 [facility] Comment on above: Performed By: #### C HM7 #### [facility] (DEFAULT) [address] [place] [address] Platelet mean volume (Bld) [Entitic vol] 10.5 fL Normal 8.5-12.2 [facility] Comment on above: Performed By: #### C HM7 #### [facility] (DEFAULT) [address] [place] [address] Platelets (Bld) [#/Vol] 165 10*3/uL Normal 150-393 [facility] Comment on above: Performed By: #### C HM7 #### [facility] (DEFAULT) [address] [place] [address] RBC (Bld) [#/Vol] 3.33 10*6/uL Low 3.91-5.04 [facility] Comment on above: Performed By: #### C HM7 #### [facility] (DEFAULT) [address] [place] [address] RBC Distribution 13.2 % Normal 10.8-14.9 [facility] Comment on above: Performed By: #### C HM7 #### [facility] (DEFAULT) [address] [place] [address] WBC (Bld) [#/Vol] 4.57 10*3/uL Normal 3.99-11.19 [facility] Comment on above: Performed By: #### C HM7 #### [facility] (DEFAULT) [address] [place] [address] CHEM 7 (LYTES,BUN,CREA,GLUC) on 06-18-2024 Anion gap [Moles/Vol] 10 mmol/L 7 - 17 mmol/L [facility] Chloride [Moles/Vol] 109 mmol/L High 98 - 10 8 mmol/L [facility] CO2 [Moles/Vol] 25 mmol/L 21 - 31 mmol/L [facility] Creatinine [Mass/Vol] 0.74 mg/dL 0.50 - 1.20 mg/dL [facility] eGFR, CKD-EPI, Female 85 - PINF [facility] Comment on above: Reported eGFR is bas ed on the CKD-EPI 2020 equation using creatinine, age, and sex. Glucose [Mass/Vol] 84 mg/dL 70 - 99 mg/dL [facility] Interpretation and review of laboratory results Abnormal [facility] Osmolality Calc [Osmolality] 291 [facility] Potassium [Moles/Vol] 4.1 mmol/L 3.5 - 5.0 mmol/L [facility] Sodium [Moles/Vol] 140 mmol/L 135 - 145 mmol/L [facility] Urea nitrogen [Mass/Vol] 9 mg/dL 7 - 25 mg/dL [facility] Urea nitrogen/Creatinine [Mass ratio] 12 mg/mg [facility] Anion gap [Moles/Vol] 10 mmol/L Normal 7-17 [facility] Comment on above: Performed By: #### C HM7 #### [facility] (DEFAULT) [address] [place] [address] Chloride [Moles/Vol] 109 mmol/L High 98-108 [facility] Comment on above: Performed By: #### C HM7 #### [facility] (DEFAULT) [address] [place] [address] 11615 CO2 [Moles/Vol] 25 mmol/L Normal 21-31 [facility] Comment on above: Performed By: #### C HM7 #### [facility] (DEFAULT) [address] [place] [address] Creatinine [Mass/Vol] 0.74 mg/dL Normal 0.50-1.20 [facility] Comment on above: Performed By: #### C HM7 #### [facility] (DEFAULT) [address] [place] [address]4217 GFR/1.73 sq M.predicted among non-blacks MDRD (S/P/Bld) [Vol rate/Area] 85 mL/min/{1.73_m2} Normal >=60 [facility] Comment on above: Result Comment: Repo rted eGFR is based on the CKD-EPI 1 equation using creatinine, age, and sex. Performed By: #### C HM7 #### [facility] (DEFAULT) [address] [place] [address] Glucose [Mass/Vol] 84 mg/dL Normal 70-99 [facility] Comment on above: Performed By: #### C HM7 #### [facility] (DEFAULT) [address] [place] [address]15 Osmolality [Osmolality] 291 mosm/kg Normal 278-305 [facility] Comment on above: Performed By: #### C HM7 #### [facility] (DEFAULT) [address] [place] [address]49 Potassium [Moles/Vol] 4.1 mmol/L Normal 3.5-5.0 [facility] Comment on above: Performed By: #### C HM7 #### [facility] (DEFAULT) [address] [place] [address]37 Sodium [Moles/Vol] 140 mmol/L Normal 135-145 [facility] Comment on above: Performed By: #### C HM7 #### [facility] (DEFAULT) [address] [place] [address]41 Urea nitrogen [Mass/Vol] 9 mg/dL Normal 7-25 [facility] Comment on above: Performed By: #### C HM7 #### [facility] (DEFAULT) [address] [place] [address]52 Urea nitrogen/Creatinine [Mass ratio] 12 mg/mg Normal [facility] Comment on above: Performed By: #### C HM7 #### [facility] (DEFAULT) [address] [place] [address]65 MAGNESIUMon 06-18-2024 Magnesium [Mass/Vol] 1.7 mg/dL 1.6 - 2 .6 mg/dL [facility] Magnesium [Mass/Vol] 1.7 mg/dL Normal 1.6-2.6 [facility] Comment on above: Performed By: #### C HM7 #### [facility] (DEFAULT) [address] [place] [address] No Panel Informationon 06-18 Interpretation and review of laboratory results Normal [facility] PHOSPHATE, INORGANICon 06-18 Phosphate [Mass/Vol] 2.4 mg/dL 2.2 - 4 .6 mg/dL [facility] Phosphorous 2.4 mg/dL Normal 2.2-4.6 [facility] Comment on above: Performed By: #### C HM7 #### [facility] (DEFAULT) [address] [place] [address] CBC AND ELECTRONIC DIFFon Basophils (Bld) [#/Vol] K/uL 0.00 - 0.15 K/uL [facility] Basophils/100 WBC (Bld) 0.5 % O [facility] Differential cell count method Nom (Bld) Electronic Differential [facility] Eosinophils (Bld) [#/Vol] 0.14 10*3/uL 0.00 - 0.42 K/uL [facility] Eosinophils/100 WBC (Bld) 2.5 % [facility] Erythrocyte distribution width (RBC) [Ratio] 13.4 % 10.8 - 14.9 % [facility] Hematocrit (Bld) [Volume fraction] 33.4 % Low 34.9 - 44.3 % [facility] Hemoglobin (Bld) [Mass/Vol] 10.6 g/dL Low 11.4 - 15.2 g/dL [facility] Immature granulocytes (Bld) [#/Vol] K/uL NINF - 0.08 K/uL [facility] Immature granulocytes/100 WBC (Bld) 0.2 % [facility] Interpretation and review of laboratory results Abnormal [facility] Lymphocytes (Bld) [#/Vol] 1.11 10*3/uL Low 1.16 - 3.51 K/uL [facility] Lymphocytes/100 WBC (Bld) 20.1 % [facility] MCH (RBC) [Entitic mass] 30.5 pg 25.9 - 33.9 pg [facility] MCHC (RBC) [Mass/Vol] 31.7 g/dL 31.4 - 35.9 g/dL [facility] MCV (RBC) [Entitic vol] 96.3 fL 79.6 - 97.7 fL [facility] Monocytes (Bld) [#/Vol] 0.63 10*3/uL 0.22 - 0.87 K/uL [facility] Monocytes/100 WBC (Bld) 11.4 % O [facility] Neutrophils (Bld) [#/Vol] 3.59 10*3/uL 1.64 - 7.28 K/uL [facility] Nucleated RBC/100 WBC (Bld) [Ratio] 0.0 % NINF [facility] Platelet mean volume (Bld) [Entitic vol] 10.1 fL 8.5 - 12.2 fL [facility] Platelets (Bld) [#/Vol] 173 10*3/uL 150 - 393 K/uL [facility] RBC (Bld) [#/Vol] 3.47 10*6/uL Low [facility] Segmented neutrophils/100 WBC (Bld) 65.3 % [facility] WBC (Bld) [#/Vol] 5.51 10*3/uL 3.99 - 11.19 K/uL [facility] Abs Baso Auto < Normal 0.00-0.15 [facility] Comment on above: Performed By: #### L [id number] #### [facility] (DEFAULT) [address] [place] [address]677 Basophils/100 WBC (Bld) 0.5 % Normal [facility] Comment on above: Performed By: #### L [id number] #### [facility] (DEFAULT) [address] [place] [address] 39171 DIFF STATUS Electronic Differential Normal [facility] Comment on above: Performed By: #### L [id number] #### [facility] (DEFAULT) [address] [place] [address] 34162 Eosinophils (Bld) [#/Vol] 0.14 10*3/uL Normal 0.00-0.42 [facility] Comment on above: Performed By: #### L [id number] #### [facility] (DEFAULT) [address] [place] [address] 18422 Eosinophils/100 WBC (Bld) 2.5 % Normal [facility] Comment on above: Performed By: #### L [id number] #### [facility] (DEFAULT) [address] [place] [address]10 Hematocrit (Bld) [Volume fraction] 33.4 % Low 34.9-44.3 [facility] Comment on above: Performed By: #### L [id number] #### [facility] (DEFAULT) [address] [place] [address] 82449 Hemoglobin (Bld) [Mass/Vol] 10.6 g/dL Low 11.4-15.2 [facility] Comment on above: Performed By: #### L [id number] #### [facility] (DEFAULT) [address] [place] [address] 73417 Immature Grans % 0.2 % Normal [facility] Comment on above: Performed By: #### L [id number] #### [facility] (DEFAULT) [address] [place] [address]255 Immature Grans Absolute < Normal <=0.08 [facility] Comment on above: Performed By: #### L [id number] #### [facility] (DEFAULT) [address] [place] [address]321 Lymphocytes (Bld) [#/Vol] 1.11 10*3/uL Low 1.16-3.51 [facility] Comment on above: Performed By: #### L [id number] #### [facility] (DEFAULT) [address] [place] [address] 66746 Lymphocytes/100 WBC (Bld) 20.1 % Normal [facility] Comment on above: Performed By: #### L [id number] #### [facility] (DEFAULT) [address] [place] [address] 93753 MCV (RBC) [Entitic vol] 96.3 fL Normal 79.6-97.7 [facility] Comment on above: Performed By: #### L [id number] #### [facility] (DEFAULT) [address] [place] [address] 46695 Mean Cell Hgb 30.5 pg Normal 25.9-33.9 [facility] Comment on above: Performed By: #### L [id number] #### [facility] (DEFAULT) [address] [address] Mean Cell Hgb Conc 31.7 g/dL Normal 31.4-35.9 [facility] Comment on above: Performed By: #### L [id number] #### [facility] (DEFAULT) [address] [address] Monocytes (Bld) [#/Vol] 0.63 10*3/uL Normal 0.22-0.87 [facility] Comment on above: Performed By: #### L [id number] #### [facility] (DEFAULT) [address] [address] Monocytes/100 WBC (Bld) 11.4 % Normal [facility] Comment on above: Performed By: #### L AB980 #### [facility] (DEFAULT) [address] [address] Nucleated RBC 0.0 /100 WBC Normal <=0.2 [facility] Comment on above: Performed By: #### L [id number] #### [facility] (DEFAULT) [address] [address] Platelet mean volume (Bld) [Entitic vol] 10.1 fL Normal 8.5-12.2 [facility] Comment on above: Performed By: #### L [id number] #### [facility] (DEFAULT) [address] [address] Platelets (Bld) [#/Vol] 173 10*3/uL Normal 150-393 [facility] Comment on above: Performed By: #### L [id number] #### [facility] (DEFAULT) [address] [address] RBC (Bld) [#/Vol] 3.47 10*6/uL Low 3.91-5.04 [facility] Comment on above: Performed By: #### L [id number] #### [facility] (DEFAULT) [address] [place] [address] RBC Distribution 13.4 % Normal 10.8-14.9 [facility] Comment on above: Performed By: #### L [id number] #### [facility] (DEFAULT) [address] [place] [address] Segs + Bands Auto 65.3 % Normal [facility] Comment on above: Performed By: #### L [id number] #### [facility] (DEFAULT) [address] [place] [address] Segs + Bands,Absolute Auto 3.59 K/uL Normal 1.64-7.28 [facility] Comment on above: Performed By: #### L [id number] #### [facility] (DEFAULT) [address] [place] [address] WBC (Bld) [#/Vol] 5.51 10*3/uL Normal 3.99-11.19 [facility] Comment on above: Performed By: #### L [id number] #### [facility] (DEFAULT) [address] [place] [address] CHEM 7 (LYTES,BUN,CREA,GLUC) on 06-17-2024 Anion gap [Moles/Vol] 10 mmol/L 7 - 17 mmol/L [facility] Chloride [Moles/Vol] 110 mmol/L High 98 - 10 8 mmol/L [facility] CO2 [Moles/Vol] 24 mmol/L 21 - 31 mmol/L [facility] Creatinine [Mass/Vol] 0.71 mg/dL 0.50 - 1.20 mg/dL [facility] eGFR, CKD-EPI, Female 90 - PINF [facility] Comment on above: Reported eGFR is bas ed on the CKD-EPI 2020 equation using creatinine, age, and sex. Glucose [Mass/Vol] 93 mg/dL 70 - 99 mg/dL [facility] Interpretation and review of laboratory results Abnormal [facility] Osmolality Calc [Osmolality] 291 [facility] Potassium [Moles/Vol] 3.8 mmol/L 3.5 - 5.0 mmol/L [facility] Sodium [Moles/Vol] 140 mmol/L 135 - 145 mmol/L [facility] Urea nitrogen [Mass/Vol] 11 mg/dL 7 - 25 mg/dL [facility] Urea nitrogen/Creatinine [Mass ratio] 15 mg/mg [facility] Anion gap [Moles/Vol] 10 mmol/L Normal 7-17 [facility] Comment on above: Performed By: #### C HM7 #### [facility] (DEFAULT) [address] [address] Chloride [Moles/Vol] 110 mmol/L High 98-108 [facility] Comment on above: Performed By: #### C HM7 #### [facility] (DEFAULT) [address] [place] [address] CO2 [Moles/Vol] 24 mmol/L Normal 21-31 [facility] Comment on above: Performed By: #### C HM7 #### [facility] (DEFAULT) [address] [place] [address] Creatinine [Mass/Vol] 0.71 mg/dL Normal 0.50-1.20 [facility] Comment on above: Performed By: #### C HM7 #### [facility] (DEFAULT) [address] [address] GFR/1.73 sq M.predicted among non-blacks MDRD (S/P/Bld) [Vol rate/Area] 90 mL/min/{1.73_m2} Normal >=60 [facility] Comment on above: Result Comment: Repo rted eGFR is based on the CKD-EPI 2020 equation using creatinine, age, and sex. Performed By: #### C HM7 #### [facility] (DEFAULT) [address] [address] Glucose [Mass/Vol] 93 mg/dL Normal 70-99 [facility] Comment on above: Performed By: #### C HM7 #### [facility] (DEFAULT) [address] [place] [address] Osmolality [Osmolality] 291 mosm/kg Normal 278-305 [facility] Comment on above: Performed By: #### C HM7 #### [facility] (DEFAULT) [address] [place] [address] Potassium [Moles/Vol] 3.8 mmol/L Normal 3.5-5.0 [facility] Comment on above: Performed By: #### C HM7 #### [facility] (DEFAULT) [address] [place] [address] Sodium [Moles/Vol] 140 mmol/L Normal 135-145 [facility] Comment on above: Performed By: #### C HM7 #### [facility] (DEFAULT) [address] [place] [address] Urea nitrogen [Mass/Vol] 11 mg/dL Normal 7-25 [facility] Comment on above: Performed By: #### C HM7 #### [facility] (DEFAULT) [address] [place] [address] Urea nitrogen/Creatinine [Mass ratio] 15 mg/mg Normal [facility] Comment on above: Performed By: #### C HM7 #### [facility] (DEFAULT) [address] [place] [address] Portable XR Chest Viewson IMPRESSION: Mild left greater than right basilar volume loss. No pulmonary edema. OLOGY EXAM: XR CHEST 1 VIE W PORTABLE, 06/17/2024 07:47 AM CLINICAL INDICATIONS: increased o2 demand RELEVANT CLINICAL HISTORY: COMPARISON: No prior studies available for comparison. FINDINGS: Mild left greater than right basilar volume loss. Normal heart size. No pulmonary edema. Mild degenerative change of the thoracic spine. Prior upper lumbar vertebral plasty. Spinal cord stimulator over the lower thoracic spine. RADIOLOGY Carl Garner M D, PhD - 06/17/2024 EXAM: XR CHEST 1 VIEW PORTABLE, 06/17/2024 07:47 AM CLINICAL INDICATIONS: increased o2 demand RELEVANT CLINICAL HISTORY: COMPARISON: No prior studies available for comparison. FINDINGS: Mild left greater than right basilar volume loss. Normal heart size. No pulmonary edema. Mild degenerative change of the thoracic spine. Prior upper lumbar vertebral plasty. Spinal cord stimulator over the lower thoracic spine. IMPRESSION IMPRESSION: Mild left greater than right basilar volume loss. No pulmonary edema. [facility] Radiology Study observation (narrative) [facility] Portable XR Chest ViewsOrder ed By: Carl Garner on 06-17-2024 [facility] Work Phone: TROPONIN 1 HOURon 06-17-2024 Delta hs-Troponin I 0 ng/L NINF - 1 5 ng/L [facility] Interpretation and review of laboratory results Normal [facility] Troponin I.cardiac High sensitivity method [Mass/Vol] 7 ng/L NINF - 34 ng/L [facility] 1 Hour hs-Troponin 7 ng/L Normal <34 [facility] Comment on above: Order Comment: Acute Coronary Syndrome (ACS): Initial Evaluation and Management:[email or web address] [email or web address] Performed By: #### C HM7 #### [facility] (DEFAULT) [address] [place] [address] Delta hs-Troponin I 0 ng/L Normal <=15 [facility] Comment on above: Order Comment: Acute Coronary Syndrome (ACS): Initial Evaluation and Management:[email or web address] [email or web address]%[email or web address] Performed By: #### C HM7 #### [facility] (DEFAULT) [address] [place] [address] TROPONIN I INITIALon 025 Interpretation and review of laboratory results Normal [facility] Troponin I.cardiac High sensitivity method [Mass/Vol] 7 ng/L NINF - 34 ng/L [facility] hs-Troponin I 7 ng/L Normal <34 [facility] Comment on above: Order Comment: Acute Coronary Syndrome (ACS): Initial Evaluation and Management: [email or web address]/Acu te%20Coronary%[email or web address] Performed By: #### 1 [id number] #### [facility] (DEFAULT) [address] [place] [address] XR CHEST 1 VIEW PORTABLEon 0 06-17-2024 XR CHEST 1 VIEW PORTABLE EXAM: XR CHEST 1 VIEW PORTABLE, 06/17/2024 07:47 AM CLINICAL INDICATIONS: increased o2 demand RELEVANT CLINICAL HISTORY: COMPARISON: No prior studies available for comparison. FINDINGS: Mild left greater than right basilar volume loss. Normal heart size. No pulmonary edema. Mild degenerative change of the thoracic spine. Prior upper lumbar vertebral plasty. Spinal cord stimulator over the lower thoracic spine. IMPRESSION: Mild left greater than right basilar volume loss. No pulmonary edema. Normal [facility] CBC AND ELECTRONIC DIFFon Basophils (Bld) [#/Vol] K/uL 0.00 - 0.15 K/uL [facility] Basophils/100 WBC (Bld) 0.1 % [facility] Differential cell count method Nom (Bld) Electronic Differential [facility] Eosinophils (Bld) [#/Vol] K/uL 0.00 - 0.42 K/uL [facility] Eosinophils/100 WBC (Bld) 0.0 % [facility] Erythrocyte distribution width (RBC) [Ratio] 13.1 % 10.8 - 14.9 % [facility] Hematocrit (Bld) [Volume fraction] 35.8 % 34.9 - 44.3 % [facility] Hemoglobin (Bld) [Mass/Vol] 11.4 g/dL 11.4 - 15.2 g/dL [facility] Immature granulocytes (Bld) [#/Vol] K/uL NINF - 0.08 K/uL [facility] Immature granulocytes/100 WBC (Bld) 0.3 % [facility] Interpretation and review of laboratory results Abnormal [facility] Lymphocytes (Bld) [#/Vol] 0.63 10*3/uL Low 1.16 - 3.51 K/uL [facility] Lymphocytes/100 WBC (Bld) 9.3 % [facility] MCH (RBC) [Entitic mass] 30.5 pg 25.9 - 33.9 pg [facility] MCHC (RBC) [Mass/Vol] 31.8 g/dL 31.4 - 35.9 g/dL [facility] MCV (RBC) [Entitic vol] 95.7 fL 79.6 - 97.7 fL [facility] Monocytes (Bld) [#/Vol] 0.57 10*3/uL 0.22 - 0.87 K/uL [facility] Monocytes/100 WBC (Bld) 8.5 % [facility] Neutrophils (Bld) [#/Vol] 5.51 10*3/uL 1.64 - 7.28 K/uL [facility] Nucleated RBC/100 WBC (Bld) [Ratio] 0.0 % [facility] Platelet mean volume (Bld) [Entitic vol] 10.3 fL 8.5 - 12.2 fL [facility] Platelets (Bld) [#/Vol] 203 10*3/uL 150 - 393 K/uL [facility] RBC (Bld) [#/Vol] 3.74 10*6/uL Low [facility] Segmented neutrophils/100 WBC (Bld) 81.8 % [facility] WBC (Bld) [#/Vol] 6.74 10*3/uL 3.99 - 11.19 K/uL [facility] Abs Baso Auto < Normal 0.00-0.15 [facility] Comment on above: Performed By: #### L [id number] #### [facility] (DEFAULT) [address] [place] [address] Abs Eos Auto < Normal 0.00-0.42 [facility] Comment on above: Performed By: #### L [id number] #### [facility] (DEFAULT) [address] [place] [address] Basophils/100 WBC (Bld) 0.1 % Normal [facility] Comment on above: Performed By: #### L [id number] #### [facility] (DEFAULT) [address] [address] DIFF STATUS Electronic Differential Normal [facility] Comment on above: Performed By: #### L [id number] #### [facility] (DEFAULT) [address] [place] [address] Eosinophils/100 WBC (Bld) 0.0 % Normal [facility] Comment on above: Performed By: #### L [id number] #### [facility] (DEFAULT) [address] [place] [address] Hematocrit (Bld) [Volume fraction] 35.8 % Normal 34.9-44.3 [facility] Comment on above: Performed By: #### L [id number] #### [facility] (DEFAULT) [address] [place] [address] Hemoglobin (Bld) [Mass/Vol] 11.4 g/dL Normal 11.4-15.2 [facility] Comment on above: Performed By: #### L [id number] #### [facility] (DEFAULT) [address] [place] [address] Immature Grans % 0.3 % Normal [facility] Comment on above: Performed By: #### L [id number] #### [facility] (DEFAULT) [address] [place] [address] Immature Grans Absolute < Normal <=0.08 [facility] Comment on above: Performed By: #### L [id number] #### [facility] (DEFAULT) [address] [place] [address] Lymphocytes (Bld) [#/Vol] 0.63 10*3/uL Low 1.16-3.51 [facility] Comment on above: Performed By: #### L [id number] #### [facility] (DEFAULT) [address] [place] [address] Lymphocytes/100 WBC (Bld) 9.3 % Normal [facility] Comment on above: Performed By: #### L [id number] #### [facility] (DEFAULT) [address] [place] [address] MCV (RBC) [Entitic vol] 95.7 fL Normal 79.6-97.7 [facility] Comment on above: Performed By: #### L AB980 #### [facility] (DEFAULT) [address] [place] [address] Mean Cell Hgb 30.5 pg Normal 25.9-33.9 [facility] Comment on above: Performed By: #### L AB980 #### [facility] (DEFAULT) [address] [place] [address] Mean Cell Hgb Conc 31.8 g/dL Normal 31.4-35.9 [facility] Comment on above: Performed By: #### L AB980 #### [facility] (DEFAULT) [address] [place] [address] Monocytes (Bld) [#/Vol] 0.57 10*3/uL Normal 0.22-0.87 [facility] Comment on above: Performed By: #### L AB980 #### [facility] (DEFAULT) [address] [place] [address] Monocytes/100 WBC (Bld) 8.5 % Normal [facility] Comment on above: Performed By: #### L AB980 #### [facility] (DEFAULT) [address] [address] Nucleated RBC 0.0 /100 WBC Normal <=0.2 [facility] Comment on above: Performed By: #### L AB980 #### [facility] (DEFAULT) [address] [address] Platelet mean volume (Bld) [Entitic vol] 10.3 fL Normal 8.5-12.2 [facility] Comment on above: Performed By: #### L AB980 #### [facility] (DEFAULT) [address] [address] Platelets (Bld) [#/Vol] 203 10*3/uL Normal 150-393 [facility] Comment on above: Performed By: #### L AB980 #### [facility] (DEFAULT) [address] [address] RBC (Bld) [#/Vol] 3.74 10*6/uL Low 3.91-5.04 [facility] Comment on above: Performed By: #### L AB980 #### [facility] (DEFAULT) [address] [address] RBC Distribution 13.1 % Normal 10.8-14.9 [facility] Comment on above: Performed By: #### L AB980 #### [facility] (DEFAULT) [address] [address] Segs + Bands Auto 81.8 % Normal [facility] Comment on above: Performed By: #### L AB980 #### [facility] (DEFAULT) [address] [address] Segs + Bands,Absolute Auto 5.51 K/uL Normal 1.64-7.28 [facility] Comment on above: Performed By: #### L AB980 #### [facility] (DEFAULT) [address] [place] [address] WBC (Bld) [#/Vol] 6.74 10*3/uL Normal 3.99-11.19 [facility] Comment on above: Performed By: #### L [id number] #### [facility] (DEFAULT) [address] [place] [address] CBC,PLATELETSon 06-16-2024 Erythrocyte distribution width (RBC) [Ratio] 13.2 % 10.8 - 14.9 % [facility] Hematocrit (Bld) [Volume fraction] 34.4 % Low 34.9 - 44.3 % [facility] Hemoglobin (Bld) [Mass/Vol] 11.1 g/dL Low 11.4 - 15.2 g/dL [facility] Interpretation and review of laboratory results Abnormal [facility] MCH (RBC) [Entitic mass] 31.2 pg 25.9 - 33.9 pg [facility] MCHC (RBC) [Mass/Vol] 32.3 g/dL 31.4 - 35.9 g/dL [facility] MCV (RBC) [Entitic vol] 96.6 fL 79.6 - 97.7 fL [facility] Platelet mean volume (Bld) [Entitic vol] 9.8 fL 8.5 - 12.2 fL [facility] Platelets (Bld) [#/Vol] 193 10*3/uL 150 - 393 K/uL [facility] RBC (Bld) [#/Vol] 3.56 10*6/uL Low [facility] WBC (Bld) [#/Vol] 6.44 10*3/uL 3.99 - 11.19 K/uL [facility] Hematocrit (Bld) [Volume fraction] 34.4 % Low 34.9-44.3 [facility] Comment on above: Performed By: #### H EMO #### [facility] (DEFAULT) [address] [place] [address] Hemoglobin (Bld) [Mass/Vol] 11.1 g/dL Low 11.4-15.2 [facility] Comment on above: Performed By: #### H EMOGC #### [facility] (DEFAULT) [address] [address] MCV (RBC) [Entitic vol] 96.6 fL Normal 79.6-97.7 [facility] Comment on above: Performed By: #### H EMOGC #### [facility] (DEFAULT) [address] [place] [address] Mean Cell Hgb 31.2 pg Normal 25.9-33.9 [facility] Comment on above: Performed By: #### H EMOGC #### [facility] (DEFAULT) [address] [address] Mean Cell Hgb Conc 32.3 g/dL Normal 31.4-35.9 [facility] Comment on above: Performed By: #### H EMOGC #### [facility] (DEFAULT) [address] [address] Platelet mean volume (Bld) [Entitic vol] 9.8 fL Normal 8.5-12.2 [facility] Comment on above: Performed By: #### H EMOGC #### [facility] (DEFAULT) [address] [address] Platelets (Bld) [#/Vol] 193 10*3/uL Normal 150-393 [facility] Comment on above: Performed By: #### H EMOGC #### [facility] (DEFAULT) [address] [address] RBC (Bld) [#/Vol] 3.56 10*6/uL Low 3.91-5.04 [facility] Comment on above: Performed By: #### H EMOGC #### [facility] (DEFAULT) [address] [address] RBC Distribution 13.2 % Normal 10.8-14.9 [facility] Comment on above: Performed By: #### H [facility] #### [facility] (DEFAULT) [address] [place] [address] WBC (Bld) [#/Vol] 6.44 10*3/uL Normal 3.99-11.19 [facility] Comment on above: Performed By: #### H [facility] #### [facility] (DEFAULT) [address] [place] [address] CHEM 7 (LYTES,BUN,CREA,GLUC) on 06-16-2024 Anion gap [Moles/Vol] 10 mmol/L 7 - 17 mmol/L [facility] Chloride [Moles/Vol] 112 mmol/L High 98 - 10 8 mmol/L [facility] CO2 [Moles/Vol] 26 mmol/L 21 - 31 mmol/L [facility] Creatinine [Mass/Vol] 0.71 mg/dL 0.50 - 1.20 mg/dL [facility] eGFR, CKD-EPI, Female 90 - PINF [facility] Comment on above: Reported eGFR is bas ed on the CKD-EPI 2020 equation using creatinine, age, and sex. Glucose [Mass/Vol] 97 mg/dL 70 - 179 mg/dL [facility] Interpretation and review of laboratory results Abnormal [facility] Osmolality Calc [Osmolality] 299 [facility] Potassium [Moles/Vol] 3.9 mmol/L 3.5 - 5.0 mmol/L [facility] Sodium [Moles/Vol] 144 mmol/L 135 - 145 mmol/L [facility] Urea nitrogen [Mass/Vol] 10 mg/dL 7 - 25 mg/dL [facility] Urea nitrogen/Creatinine [Mass ratio] 14 mg/mg [facility] Anion gap [Moles/Vol] 10 mmol/L Normal 7-17 [facility] Comment on above: Performed By: #### C HM7 #### [facility] (DEFAULT) [address] [place] [address] Chloride [Moles/Vol] 112 mmol/L High 98-108 [facility] Comment on above: Performed By: #### C HM7 #### [facility] (DEFAULT) [address] [address] CO2 [Moles/Vol] 26 mmol/L Normal 21-31 [facility] Comment on above: Performed By: #### C HM7 #### [facility] (DEFAULT) [address] [place] [address] Creatinine [Mass/Vol] 0.71 mg/dL Normal 0.50-1.20 [facility] Comment on above: Performed By: #### C HM7 #### [facility] (DEFAULT) [address] [place] [address] GFR/1.73 sq M.predicted among non-blacks MDRD (S/P/Bld) [Vol rate/Area] 90 mL/min/{1.73_m2} Normal >=60 [facility] Comment on above: Result Comment: Repo rted eGFR is based on the CKD-EPI 2020 equation using creatinine, age, and sex. Performed By: #### C HM7 #### [facility] (DEFAULT) [address] [place] [address] Glucose [Mass/Vol] 97 mg/dL Normal 70-179 [facility] Comment on above: Performed By: #### C HM7 #### [facility] (DEFAULT) [address] [place] [address] Osmolality [Osmolality] 299 mosm/kg Normal 278-305 [facility] Comment on above: Performed By: #### C HM7 #### [facility] (DEFAULT) [address] [address] Potassium [Moles/Vol] 3.9 mmol/L Normal 3.5-5.0 [facility] Comment on above: Performed By: #### C HM7 #### [facility] (DEFAULT) [address] [place] [address] Sodium [Moles/Vol] 144 mmol/L Normal 135-145 [facility] Comment on above: Performed By: #### C HM7 #### [facility] (DEFAULT) [address] [place] [address] Urea nitrogen [Mass/Vol] 10 mg/dL Normal 7-25 [facility] Comment on above: Performed By: #### C HM7 #### [facility] (DEFAULT) [address] [place] [address] Urea nitrogen/Creatinine [Mass ratio] 14 mg/mg Normal [facility] Comment on above: Performed By: #### C HM7 #### [facility] (DEFAULT) [address] [place] [address] Anion gap [Moles/Vol] 11 mmol/L 7 - 17 mmol/L [facility] Chloride [Moles/Vol] 110 mmol/L High 98 - 10 8 mmol/L [facility] CO2 [Moles/Vol] 24 mmol/L 21 - 31 mmol/L [facility] Creatinine [Mass/Vol] 0.63 mg/dL 0.50 - 1.20 mg/dL [facility] eGFR, CKD-EPI, Female - PINF [facility] Comment on above: Reported eGFR is bas ed on the CKD-EPI 2020 equation using creatinine, age, and sex. Glucose [Mass/Vol] 97 mg/dL 70 - 179 mg/dL [facility] Interpretation and review of laboratory results Abnormal [facility] Osmolality Calc [Osmolality] 294 [facility] Potassium [Moles/Vol] 4.3 mmol/L 3.5 - 5.0 mmol/L [facility] Sodium [Moles/Vol] 141 mmol/L 135 - 145 mmol/L [facility] Urea nitrogen [Mass/Vol] 10 mg/dL 7 - 25 mg/dL [facility] Urea nitrogen/Creatinine [Mass ratio] 16 mg/mg [facility] Anion gap [Moles/Vol] 11 mmol/L Normal 7-17 [facility] Comment on above: Performed By: #### C HM7 #### [facility] (DEFAULT) [address] [place] [address] 12680 Chloride [Moles/Vol] 110 mmol/L High 98-108 [facility] Comment on above: Performed By: #### C HM7 #### [facility] (DEFAULT) [address] [place] [address] 83178 CO2 [Moles/Vol] 24 mmol/L Normal 21-31 [facility] Comment on above: Performed By: #### C HM7 #### [facility] (DEFAULT) [address] [place] [address] 99787 Creatinine [Mass/Vol] 0.63 mg/dL Normal 0.50-1.20 [facility] Comment on above: Performed By: #### C HM7 #### [facility] (DEFAULT) [address] [place] [address] 74280 eGFR, CKD-EPI, Female > Normal >=60 [facility] Comment on above: Result Comment: Repo rted eGFR is based on the CKD-EPI 2020 equation using creatinine, age, and sex. Performed By: #### C HM7 #### [facility] (DEFAULT) [address] [place] [address] 06173 Glucose [Mass/Vol] 97 mg/dL Normal 70-179 [facility] Comment on above: Performed By: #### C HM7 #### [facility] (DEFAULT) [address] [place] [address] 83632 Osmolality [Osmolality] 294 mosm/kg Normal 278-305 [facility] Comment on above: Performed By: #### C HM7 #### [facility] (DEFAULT) [address] [place] [address] 68004 Potassium [Moles/Vol] 4.3 mmol/L Normal 3.5-5.0 [facility] Comment on above: Performed By: #### C HM7 #### [facility] (DEFAULT) [address] [place] [address] 65963 Sodium [Moles/Vol] 141 mmol/L Normal 135-145 [facility] Comment on above: Performed By: #### C HM7 #### [facility] (DEFAULT) [address] [place] [address] 42330 Urea nitrogen [Mass/Vol] 10 mg/dL Normal 7-25 [facility] Comment on above: Performed By: #### C HM7 #### [facility] (DEFAULT) [address] [place] [address] 72116 Urea nitrogen/Creatinine [Mass ratio] 16 mg/mg Normal [facility] Comment on above: Performed By: #### C HM7 #### [facility] (DEFAULT) [address] [place] [address] 83471 PROTIME-INRon 06-16-2024 INR Coag (Bld) [Relative time] 1.0 {INR} 0.9 - 1.1 [facility] Interpretation and review of laboratory results Normal [facility] PT Coag (PPP) [Time] 13.6 s [facility] INR Coag (PPP) [Relative time] 1.0 {INR} Normal 0.9-1.1 [facility] Comment on above: Performed By: #### P TI #### [facility] (DEFAULT) [address] [place] [address] 69401 PT Coag (PPP) [Time] 13.6 s Normal 11.9-14.2 [facility] Comment on above: Performed By: #### P TI #### [facility] (DEFAULT) [address] [place] [address] 90381 CARDIAC RHYTHM (SCANNED)on 0 06-15-2024 [facility] CBC AND ELECTRONIC DIFFon Basophils (Bld) [#/Vol] K/uL 0.00 - 0.15 K/uL [facility] Basophils/100 WBC (Bld) 0.8 % O [facility] Differential cell count method Nom (Bld) Electronic Differential [facility] Eosinophils (Bld) [#/Vol] 0.08 10*3/uL 0.00 - 0.42 K/uL [facility] Eosinophils/100 WBC (Bld) 2.1 % [facility] Erythrocyte distribution width (RBC) [Ratio] 13.7 % 10.8 - 14.9 % [facility] Hematocrit (Bld) [Volume fraction] 41.1 % 34.9 - 44.3 % [facility] Hemoglobin (Bld) [Mass/Vol] 13.2 g/dL 11.4 - 15.2 g/dL [facility] Immature granulocytes (Bld) [#/Vol] K/uL NINF - 0.08 K/uL [facility] Immature granulocytes/100 WBC (Bld) 0.3 % [facility] Interpretation and review of laboratory results Abnormal [facility] Lymphocytes (Bld) [#/Vol] 1.34 10*3/uL 1.16 - 3.51 K/uL [facility] Lymphocytes/100 WBC (Bld) 34.8 % [facility] MCH (RBC) [Entitic mass] 31.1 pg 25.9 - 33.9 pg [facility] MCHC (RBC) [Mass/Vol] 32.1 g/dL 31.4 - 35.9 g/dL [facility] MCV (RBC) [Entitic vol] 96.7 fL 79.6 - 97.7 fL [facility] Monocytes (Bld) [#/Vol] 0.40 10*3/uL 0.22 - 0.87 K/uL [facility] Monocytes/100 WBC (Bld) 10.4 % O [facility] Neutrophils (Bld) [#/Vol] 1.99 10*3/uL 1.64 - 7.28 K/uL [facility] Nucleated RBC/100 WBC (Bld) [Ratio] 0.0 % [facility] Platelet mean volume (Bld) [Entitic vol] 10.3 fL 8.5 - 12.2 fL [facility] Platelets (Bld) [#/Vol] 219 10*3/uL 150 - 393 K/uL [facility] RBC (Bld) [#/Vol] 4.25 10*6/uL [facility] Segmented neutrophils/100 WBC (Bld) 51.6 % [facility] WBC (Bld) [#/Vol] 3.85 10*3/uL Low 3.99 - 11.19 K/uL [facility] Abs Baso Auto < Normal 0.00-0.15 [facility] Comment on above: Performed By: #### L [id number] #### [facility] (DEFAULT) [address] [address] Basophils/100 WBC (Bld) 0.8 % Normal [facility] Comment on above: Performed By: #### L AB980 #### [facility] (DEFAULT) [address] [address] DIFF STATUS Electronic Differential Normal [facility] Comment on above: Performed By: #### L [id number] #### [facility] (DEFAULT) [address] [place] [address] 87800 Eosinophils (Bld) [#/Vol] 0.08 10*3/uL Normal 0.00-0.42 [facility] Comment on above: Performed By: #### L AB980 #### [facility] (DEFAULT) [address] [address] Eosinophils/100 WBC (Bld) 2.1 % Normal [facility] Comment on above: Performed By: #### L AB980 #### [facility] (DEFAULT) [address] [address] Hematocrit (Bld) [Volume fraction] 41.1 % Normal 34.9-44.3 [facility] Comment on above: Performed By: #### L AB980 #### [facility] (DEFAULT) [address] [place] [address] 76481 Hemoglobin (Bld) [Mass/Vol] 13.2 g/dL Normal 11.4-15.2 [facility] Comment on above: Performed By: #### L AB980 #### [facility] (DEFAULT) [address] [place] [address] 27298 Immature Grans % 0.3 % Normal [facility] Comment on above: Performed By: #### L AB980 #### [facility] (DEFAULT) [address] [address] Immature Grans Absolute < Normal <=0.08 [facility] Comment on above: Performed By: #### L AB980 #### [facility] (DEFAULT) [address] [address] Lymphocytes (Bld) [#/Vol] 1.34 10*3/uL Normal 1.16-3.51 [facility] Comment on above: Performed By: #### L AB980 #### [facility] (DEFAULT) [address] [address] Lymphocytes/100 WBC (Bld) 34.8 % Normal [facility] Comment on above: Performed By: #### L AB980 #### [facility] (DEFAULT) [address] [address]757 MCV (RBC) [Entitic vol] 96.7 fL Normal 79.6-97.7 [facility] Comment on above: Performed By: #### L AB980 #### [facility] (DEFAULT) [address] [address] Mean Cell Hgb 31.1 pg Normal 25.9-33.9 [facility] Comment on above: Performed By: #### L AB980 #### [facility] (DEFAULT) [address] [address] Mean Cell Hgb Conc 32.1 g/dL Normal 31.4-35.9 [facility] Comment on above: Performed By: #### L AB980 #### [facility] (DEFAULT) [address] [place] [address] 59800 Monocytes (Bld) [#/Vol] 0.40 10*3/uL Normal 0.22-0.87 [facility] Comment on above: Performed By: #### L AB980 #### [facility] (DEFAULT) [address] [place] [address] 21727 Monocytes/100 WBC (Bld) 10.4 % Normal [facility] Comment on above: Performed By: #### L AB980 #### [facility] (DEFAULT) [address] [place] [address] 60122 Nucleated RBC 0.0 /100 WBC Normal <=0.2 [facility] Comment on above: Performed By: #### L AB980 #### [facility] (DEFAULT) [address] [place] [address] 79897 Platelet mean volume (Bld) [Entitic vol] 10.3 fL Normal 8.5-12.2 [facility] Comment on above: Performed By: #### L AB980 #### [facility] (DEFAULT) [address] [place] [address] 07796 Platelets (Bld) [#/Vol] 219 10*3/uL Normal 150-393 [facility] Comment on above: Performed By: #### L AB980 #### [facility] (DEFAULT) [address] [place] [address] 54739 RBC (Bld) [#/Vol] 4.25 10*6/uL Normal 3.91-5.04 [facility] Comment on above: Performed By: #### L AB980 #### [facility] (DEFAULT) [address] [place] [address] 79735 RBC Distribution 13.7 % Normal 10.8-14.9 [facility] Comment on above: Performed By: #### L AB980 #### [facility] (DEFAULT) [address] [place] [address] 75726 Segs + Bands Auto 51.6 % Normal [facility] Comment on above: Performed By: #### L AB980 #### [facility] (DEFAULT) [address] [place] [address] 32215 Segs + Bands,Absolute Auto 1.99 K/uL Normal 1.64-7.28 [facility] Comment on above: Performed By: #### L AB980 #### [facility] (DEFAULT) [address] [place] [address] 72752 WBC (Bld) [#/Vol] 3.85 10*3/uL Low 3.99-11.19 [facility] Comment on above: Performed By: #### L AB980 #### [facility] (DEFAULT) [address] [place] [address] 56551 CHEM 6 (LYTES, BUN CREA)on 1 07-22-2023 Anion gap [Moles/Vol] 9 mmol/L 7 - 17 mmol/L [facility] Chloride [Moles/Vol] 109 mmol/L High 98 - 10 8 mmol/L [facility] CO2 [Moles/Vol] 28 mmol/L 21 - 31 mmol/L [facility] Creatinine [Mass/Vol] 0.76 mg/dL 0.50 - 1.20 mg/dL [facility] eGFR, CKD-EPI, Female 83 - PINF [facility] Comment on above: Reported eGFR is bas ed on the CKD-EPI 2020 equation using creatinine, age, and sex. Interpretation and review of laboratory results Abnormal [facility] Potassium [Moles/Vol] 4.5 mmol/L 3.5 - 5.0 mmol/L [facility] Sodium [Moles/Vol] 141 mmol/L 135 - 145 mmol/L [facility] Urea nitrogen [Mass/Vol] 9 mg/dL 7 - 25 mg/dL [facility] Urea nitrogen/Creatinine [Mass ratio] 12 mg/mg [facility] Anion gap [Moles/Vol] 9 mmol/L Normal 7-17 [facility] Comment on above: Performed By: #### C HM6 #### [facility] (DEFAULT) [address] [address] Chloride [Moles/Vol] 109 mmol/L High 98-108 [facility] Comment on above: Performed By: #### C HM6 #### [facility] (DEFAULT) [address] [address] CO2 [Moles/Vol] 28 mmol/L Normal 21-31 [facility] Comment on above: Performed By: #### C HM6 #### [facility] (DEFAULT) [address] [address]68 Creatinine [Mass/Vol] 0.76 mg/dL Normal 0.50-1.20 [facility] Comment on above: Performed By: #### C HM6 #### [facility] (DEFAULT) [address] [place] [address] 92135 GFR/1.73 sq M.predicted among non-blacks MDRD (S/P/Bld) [Vol rate/Area] 83 mL/min/{1.73_m2} Normal >=60 [facility] Comment on above: Result Comment: Repo rted eGFR is based on the CKD-EPI 2020 equation using creatinine, age, and sex. Performed By: #### C HM6 #### [facility] (DEFAULT) [address] [address] Potassium [Moles/Vol] 4.5 mmol/L Normal 3.5-5.0 [facility] Comment on above: Performed By: #### C HM6 #### [facility] (DEFAULT) [address] [address] Sodium [Moles/Vol] 141 mmol/L Normal 135-145 [facility] Comment on above: Performed By: #### C HM6 #### [facility] (DEFAULT) [address] [address] Urea nitrogen [Mass/Vol] 9 mg/dL Normal 7-25 [facility] Comment on above: Performed By: #### C HM6 #### [facility] (DEFAULT) [address] [place] [address] Urea nitrogen/Creatinine [Mass ratio] 12 mg/mg Normal [facility] Comment on above: Performed By: #### C HM6 #### [facility] (DEFAULT) [address] [place] [address] Cytology, Body Fluid / CSFon 04-13-2024 CYTOLOGY,BF/CSF SEE PATHOLOGY REPORT Normal [facility] Comment on above: Order Comment: URINE Result Comment: Spec imen submitted to Anatomical Pathology Department for testing. Performed By: #### L 300.3900 #### [facility] [address] [place], [address] Pap Stain (control)on 2023 Pap Stain (control) --- Patient Age/Sex Location Account Attending Physician ANUSHA VIDAL 74/F LABSPEC [id number] Dr. Temitope Murcia MD Specimen: [id number] Received: 04/13/24 Status: SANDY Brady Num: [id number] Spec Type: CYSPIN FL Subm Dr: Dr. Temitope Murcia MD HEADER OPERATION: Not noted PRE-OP DIAGNOSIS: Hematuria TISSUE SUBMITTED: Urine for cytology DIAGNOSIS CYTOLOGY Urine for cytology (cytospin): Negative for high grade urothelial carcinoma (Zaynab Category System II). Acute inflammation. See comment. AM. 04/14/2024 COMMENT The Zaynab System for urine cytology diagnostic categorization was used in the evaluation of this case. CYTOLOGY STUDY Slides are reviewed. CYTOLOGY GROSS Received is 30 ml of light-yellow cloudy fluid labeled with the patient's name and and designated per the requisition as urine. Submitted for cytology preparation. 04/14/2024 TC:2 CPT: 38923 Signed (signature on file) Dr. Mik Arellano, 04/14/24 1204 Normal [facility] Comment on above: Performed By: #### L 300.3900 #### [facility] [address] [place], [place], [id number] INTERVENTIONAL UPPER ENDOSCO PYon 04-01-2024 [facility] Patient Name: Anusha Vidal Procedure Date: 04/01/2024 12:11 PM Date of : 1950 Admit Type: Outpatient Age: 74 Room: Endo 2 Gender: Female Note Status: Finalized Attending MD: Wesley Bui MD, [id number] Procedure: Upper GI endoscopy Attending Participation: I personally performed the entire procedure. Indications: Heartburn, Suspected esophageal reflux Providers: Wesley Bui MD (Doctor), Hal Mcpherson RN (Nurse), Dale Ramos Mill Platform Supervisor (Mill Platform Supervisor), SHARI Billings (Anesthesia Staff), Fatou Haro RN (Nurse) Referring MD: Wesley Bui MD Complications: No immediate complications. Medicines: Monitored Anesthesia Care Requesting Provider: Procedure: Pre-Anesthesia Assessment: - Prior to the procedure, a History and Physical was performed, and patient medications and allergies were reviewed. The patient is competent. The risks and benefits of the procedure and the sedation options and risks were discussed with the patient. All questions were answered and informed consent was obtained. Patient identification and proposed procedure were verified by the physician, the nurse and the strickler attendant in the pre-procedure area in the endoscopy suite at 12:24 PM. Mental Status Examination: alert and oriented. Airway Examination: normal oropharyngeal airway and neck mobility. Respiratory Examination: clear to auscultation. CV Examination: normal. Prophylactic Antibiotics: The patient does not require prophylactic antibiotics. Prior Anticoagulants: The patient has taken Coumadin (warfarin), last dose was 5 days prior to procedure. ASA Grade Assessment: III - A patient with severe systemic disease. After reviewing the risks and benefits, the patient was deemed in satisfactory condition to undergo the procedure. The anesthesia plan was to use monitored anesthesia care (MAC). Immediately prior to administration of medications, the patient was re-assessed for adequacy to receive sedatives. The heart rate, respiratory rate, oxygen saturations, blood pressure, adequacy of pulmonary ventilation, and response to care were monitored throughout the procedure. The physical status of the patient was re-assessed after the procedure. After obtaining informed consent, the endoscope was passed under direct vision. Throughout the procedure, the patient's blood pressure, pulse, and oxygen saturations were monitored continuously. The Endoscope ([id number]) was introduced through the mouth, and advanced to the second part of duodenum. The upper GI endoscopy was accomplished without difficulty. The patient tolerated the procedure well. Findings: A medium-sized paraesophageal hernia was found. The CRUZ capsule with delivery system was introduced through the mouth and advanced into the esophagus, such that the CRUZ pH capsule was positioned 25 cm from the incisors, which was 6 cm proximal to the GE junction. The CRUZ pH capsule was then deployed and attached to the esophageal mucosa. The delivery system was then withdrawn. Endoscopy was utilized for probe placement and diagnostic evaluation. The exam of the esophagus was otherwise normal. The entire examined stomach was normal. The examined duodenum was normal. Impression: - Medium-sized paraesophageal hernia. - Normal stomach. - Normal examined duodenum. - The CRUZ pH capsule was deployed. - No specimens collected. Recommendation: - Discharge patient to home (ambulatory). - Patient has a contact number available for emergencies. The signs and symptoms of potential delayed complications were discussed with the (more content not included)... LAB, [facility] Radiology Study observation (narrative) [facility] Urine Cultureon 03-24-2024 [facility] Escherichia coli [place] Count 50,000-80,000 Escherichia coli: REACTION Ampicillin Islt JAMES >=32 Ampicillin+Sulbac Islt JAMES >=32 R ceFAZolin Islt JAMES 8 S Cefepime Islt JMAES <=0.12 S cefTRIAXone Islt JAMES <=0.25 S Ciprofloxacin Islt JAMES <=0.25 S B-Lactamase Extended Susc Islt NEG Gentamicin Islt JAMES >=16 R Imipenem Islt JAMES <=0.25 S levoFLOXacin Islt JAMES <=0.12 S Nitrofurantoin Islt JAMES <=16 S Pip+Tazo Islt JAMES 8 S Tobramycin Islt JAMES 4 I TMP SMX Islt JAMES >=320 R Normal [facility] Comment on above: Performed By: #### L 618.4392 #### [facility] [address] [place], [address] Abdomen/Pelvis W IV Cont ONL Yon 03-22-2024 Abdomen/Pelvis W IV Cont ONLY [facility] Imaging Services [address] [place] [address] Abdomen/Pelvis W IV Cont ONLY MR#: [id number] Acct: [id number] Name: ANUSHA VIDAL Rep #: [id number] : 1950 F 74 From: Rafael Glover DO PCP: Dr. Adelina Alvarenga DO Status: REG ER Study: Abdomen/Pelvis W IV Cont ONLY Date of Exam: Exam# [id number] Ordering Dr: [place] [id number] STUDY: CT ABDOMEN AND PELVIS WITH CONTRAST REASON FOR EXAM: Female, 74 years old. Painless gross hematuria RADIATION DOSAGE (If Supplied By Facility): CTDIvol = ( 11.84 ) mGy, DLP = ( 491.77 ) mGycm TECHNIQUE: Transaxial images were obtained from the dome of the diaphragm to the symphysis pubis without oral contrast. IV 100mL Isovue-300 was administered. Sagittal and coronal images were reconstructed. Individualized dose optimization techniques were used for this CT. COMPARISON: None. FINDINGS: The visualized lung bases are unremarkable. The visualized portions of the heart are within normal limits. Up to 1 cm cysts in the liver. Normal gallbladder and extrahepatic biliary system. Normal spleen. Normal pancreas. Normal bilateral adrenal glands. Normal right kidney. Normal left kidney. Possible 3 mm left mid ureteral stone. Hiatal hernia. Normal small intestine. Normal colon. The appendix is visualized and appears normal. Normal abdominal aorta. Normal inferior vena cava. Normal retroperitoneum. Normal urinary bladder. Normal abdominal wall. Mild compression of T11 with vertebral plasty. Stimulator electrodes in the lower thoracic vertebral region. CT/Abdomen/Pelvis W IV Cont ONLY IMPRESSION: Hepatic cysts. Possible mid left ureteral stone. Small hiatal hernia. Electronically Signed: Rafael Glover DO at 18:59 EDT , CC: Dr. Adelina Alvarenga DO; Dr. Cayden Ching MD Pharmacy Care Coordinator: Signed Normal [facility] Basic Metabolic Profile (BMP )on 03-22-2024 BUN/CRE 12.0 RATIO Normal 03-21 [facility] Comment on above: Performed By: #### L 500.2500 ####[facility] [address] [place], [address] CA,Total 8.4 mg/dL Low 8.5-10.1 [facility] Comment on above: Performed By: #### L 500.2500 ####[facility] [address] [place], [address] Chloride [Moles/Vol] 114 mmol/L High 98-107 [facility] Comment on above: Performed By: #### L 500.2500 ####[facility] [address] [place], [address] CO2 [Moles/Vol] 23.0 mmol/L Normal 21.0-32.0 [facility] Comment on above: Performed By: #### L 500.2500 ####[facility] [address] [place], [address] Creatinine [Mass/Vol] 0.75 mg/dL Normal 0.55-1.02 [facility] Comment on above: Result Comment: The validity of the calculated GFR GFRAA in patients over 70 years has not been determined. Clinical correlation is essential. Performed By: #### L 500.2500 ####[facility] [address] [place], [address] ECRCL 50.49 ml/min Normal [facility] Comment on above: Performed By: #### L 500.2500 ####[facility] [address] [place], [address] EST GFR - AA 97 mL/min Normal >60 [facility] Comment on above: Result Comment: Afri can Portuguese GFR Calc Performed By: #### L 500.2500 ####[facility] [address] [place], [address] GAP 5 Normal 5-15 [facility] Comment on above: Performed By: #### L 500.2500 ####[facility] [address] [place], [address] GFR/1.73 sq M.predicted among non-blacks MDRD (S/P/Bld) [Vol rate/Area] 80 mL/min/{1.73_m2} Normal >60 [facility] Comment on above: Result Comment: Non- GFR Calc Performed By: #### L 500.2500 ####[facility] [address] [place], [address] Glucose [Mass/Vol] 96 mg/dL Normal 74-106 [facility] Comment on above: Performed By: #### L 500.2500 ####[facility] [address] [place], [address] Potassium [Moles/Vol] 4.1 mmol/L Normal 3.5-5.1 [facility] Comment on above: Performed By: #### L 500.2500 ####[facility] [address] [place], [address] Sodium [Moles/Vol] 142 mmol/L Normal 136-145 [facility] Comment on above: Performed By: #### L 500.2500 ####[facility] [address] [place], [address] Urea nitrogen [Mass/Vol] 9 mg/dL Normal 7-18 [facility] Comment on above: Performed By: #### L 500.2500 ####[facility] [address] [place], [address] CBC W/Diff, Automatedon 10-2 Absolute Lymph 0.41 X10 3/uL Low 0.83-4.51 [facility] Comment on above: Performed By: #### L 300.3900 #### [facility] [address] [place], [address] Absolute Neut 7.3 X10 3/uL Normal 2.0-7.7 [facility] Comment on above: Performed By: #### L 300.3900 #### [facility] [address] [place], [address] Basophils/100 WBC (Bld) 0.3 % Normal 0-1 [facility] [facility] Comment on above: Performed By: #### L 300.3900 #### [facility] [address] [place], [address] Eosinophils/100 WBC (Bld) 0.0 % Normal 0-5 [facility] Comment on above: Performed By: #### L 300.3900 #### [facility] [address] [place], [address] Erythrocyte distribution width (RBC) [Ratio] 14.6 % Normal 11.6-14.6 [facility] Comment on above: Performed By: #### L 300.3900 #### [facility] [address] [place], [address] Hematocrit (Bld) [Volume fraction] 39.7 % Normal 37-47 [facility] Comment on above: Performed By: #### L 300.3900 #### [facility] [address] [place], [address] Hemoglobin (Bld) [Mass/Vol] 13.2 g/dL Normal 12.0-15.0 [facility] Comment on above: Performed By: #### L 300.3900 #### [facility] [address] [place], [address] IG% 0.500 Normal 0.0-0.9 [facility] Comment on above: Result Comment: IG% - Immature Granulocytes (promyelocytes, myelocytes and metamyelocytes) > 1% indicates that a LEFT SHIFT is Present. Performed By: #### L 300.3900 #### [facility] [address] [place], [address] Lymphocytes/100 WBC (Bld) 5.2 % Low 19-41 [facility] Comment on above: Performed By: #### L 300.3900 #### [facility] [address] [place], [address] MCH (RBC) [Entitic mass] 30.8 pg Normal 27.0-32.0 [facility] Comment on above: Performed By: #### L 300.3900 #### [facility] [address] [place], [address] MCHC (RBC) [Mass/Vol] 33.2 g/dL Normal 32-36 [facility] Comment on above: Performed By: #### L 300.3900 #### [facility] [address] [place], [address] MCV (RBC) [Entitic vol] 92.5 fL Normal 81-99 [facility] Comment on above: Performed By: #### L 300.3900 #### [facility] [address] [place], [address] Monocytes/100 WBC (Bld) 1.3 % Normal 0-10 [facility] Comment on above: Performed By: #### L 300.3900 #### [facility] [address] [place], [address] Neutrophils/100 WBC (Bld) 92.7 % High 47-70 [facility] Comment on above: Performed By: #### L 300.3900 #### [facility] [address] [place], [address] Nucleated RBC (Bld) [#/Vol] 0 10*3/uL Normal 0-5 [facility] Comment on above: Performed By: #### L 300.3900 #### [facility] [address] [place], [address] Platelet mean volume (Bld) [Entitic vol] 9.9 fL Normal 6.2-12.0 [facility] Comment on above: Performed By: #### L 300.3900 #### [facility] [address] [place], [address] Platelets (Bld) [#/Vol] 206 10*3/uL Normal 150-450 [facility] Comment on above: Performed By: #### L 300.3900 #### [facility] [address] [place], [address] RBC (Bld) [#/Vol] 4.29 10*6/uL Normal 4.2-5.4 [facility] Comment on above: Performed By: #### L 300.3900 #### [facility] [address] [place], [address] RDW SD 49.3 fl High 35.1-43.9 [facility] Comment on above: Performed By: #### L 300.3900 #### [facility] [address] [place], [address] WBC (Bld) [#/Vol] 7.9 10*3/uL Normal 4.4-11.0 [facility] Comment on above: Performed By: #### L 300.3900 #### [facility] [address] [place], [address] Emergency Department Summary on 03-22-2024 Emergency Department Summary [facility] Medical Records Department [address] [place] [address] Emergency Department Summary 03/22/24 MR#: [id number] Acct: [id number] Name: ANUSHA VIDAL Rep #: [id number] : 1950 74 From: Cayden Ching MD PCP: Dr. Adelina Alvarenga DO Status:ADM IN Location: MS3 SY425-[address] Cayden Ching MD on 03/22/24 at 2122 Nurse informing that there is no blood in the urine when Herrera was placed. Pelvic exam was performed. There is no vaginal bleeding or vaginal lesions noted. Dr. Murcia was repaged. Plan is discharge to home, urine culture and placed on cephalexin. 03/22/242121 Cosigner Signature (if applicable): cc: Dr. Adelina Alvarenga DO * Signed HPI History of Present Illness Chief Complaint: Complaint Detail of Chief Complaint: Gross hematuria Informant: patient Onset/Context/Timing Onset: Today Context: Sudden Onset Timing: Continuous Quality: Gross hematuria Location: Current Severity: Moderate Maximum Severity: Moderate Worsened by: Possibly due to the fact that patient is on anticoagulant Relieved by: Nothing Associated Symptoms Associated Symptoms: Nothing Narrative Narrative: Patient is a 74-year-old woman. She is on warfarin. Her level has not been checked in 3 to 4 weeks. She states it was therapeutic 3 to 4 weeks ago. She has not been on an antibiotic in the last couple of weeks. She denies bruising easily. She denies fever, chills night sweats. Denies nausea or vomiting. She states she has urgency to go. She did note clots last time she urinated. 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 Patient denies cardiac or respiratory symptoms. Patient denies central low back pain or flank pain. Prior similar symptoms: Yes Recent Illness/Hospitalization : No PFSH PFSH Medical History Ambulates with cane History of edema Loss of consciousness Gastric reflux History of pain when walking Dysphagia Wears glasses Cancer Thyroid disease High cholesterol DVT (deep venous thrombosis) Blood disorder Injury of back Back pain TIA (transient ischemic attack) History of IBS Shortness of breath on exertion History of stress test History of echocardiogram Normal stress echocardiogram Cardiology follow-up encounter History of irregular heartbeat Chest pain Abdominal pain Essential (primary) hypertension Pure hypercholesterolemia Palpitations Atherosclerotic heart disease of [place] coronary artery without angina pectoris History of deep vein thrombophlebitis of lower extremity Arthritis Dyspnea on exertion Atypical chest pain Factor V deficiency Vertigo History of TIA (transient ischemic attack) GERD (gastroesophageal reflux disease) History of thyroid cancer Chronic back pain Bicuspid aortic valve Hypothyroidism (acquired) Home Medications ???Medication ???Instructions ???Recorded ???Last Taken ???Type tizanidine 4 mg tablet 4 mg PO QHS SPASMS 10/27/20 11/25/23 History polyethylene glycol 3350 17 17 g PO PRN PRN Constipation 08/21/21 Unknown History gram/dose oral powder (Miralax) multivitamin with minerals-folic 2 tab PO DAILY 08/28/21 11/25/23 History acid 200 mcg chewable tablet (Multivitamin Gummies) atenolol 25 mg tablet 12.5 mg PO DAILY 03/05/23 11/26/23 History simvastatin 40 mg tablet 40 mg PO QHS CHOLESTEROL #90 tabs 04/14/23 11/25/23 Rx calcium 600 mg (as 1 cap PO DAILY 06/11/23 11/25/23 History carbonate)-vitamin D3 25 mcg (1,000 unit) capsule warfarin 2 mg tablet 2 mg PO SUMOWEFRSA 06/11/23 11/20/23 History warfarin 3 mg tablet 3 mg PO TUTH BLOOD THINNER 06/11/23 11/20/23 History atenolol 25 mg tablet 25 mg PO QHS Dose was increased. 11/05/23 11/25/23 Rx #135 tabs acetaminophen 500 mg tablet 500 mg PO Q6H PRN Pain 01/30/24 Unknown History levothyroxine 75 mcg tablet 75 mcg PO QDAY 01/30/24 Unknown History omeprazole 20 mg capsule,delayed 20 mg PO BID #60 caps 03/10/24 Unknown Rx release Allergy/AdvReac Type Severity Reaction Status Date / Time Iodinated Contrast Media Allergy Hives Verified 01/30/24 09:46 (Iodinated Contrast Media - IV Dye) levofloxacin AdvReac abdominal Verified 01/30/24 09:46 pain naproxen (From Naprosyn) AdvReac Nausea Verified 01/30/24 09:46 Family History Father , age 65 CAD (coronary artery disease) Arthritis Myocardial infarction CVA (cerebral vascular accident) Mother Arthritis Hypertension Sister Arthritis Aunt Breast cancer Surgical History Hx of colonoscopy S/P insertion of spinal cord stimulator ( 05/14/23) Hx of right cataract extraction Hx of left cataract extraction History of appendectom (more content not included)... Normal [facility] Prothrombin Time w/INRon INR Coag (PPP) [Relative time] 2.2 {INR} Normal [facility] Comment on above: Performed By: #### L 300.3900 #### [facility] [address] [place], [address] PT Coag (PPP) [Time] 23.9 s High 11.7-14.9 [facility] Comment on above: Performed By: #### L 300.3900 #### [facility] [address] [place], [address] Urinalysis, Completeon 03-22 EPI,SQUAMOUS 50-100 SEEN Normal 5-10 [facility] Comment on above: Order Comment: COLOR OF URINE MAY AFFECT DIPSTICK RESULTS.CARTON LETTERING MACHINE OPERATOR TO SPECIFY Performed By: #### L 400.0001 ####[facility] [id number] [place], [address] RBC > 100 SEEN Normal 0-5 [facility] Comment on above: Order Comment: COLOR OF URINE MAY AFFECT DIPSTICK RESULTS.CARTON LETTERING MACHINE OPERATOR TO SPECIFY Performed By: #### L 400.0001 ####[facility] [address] [place], [address] BACTERIA 0 SEEN Normal None Seen [facility] Comment on above: Order Comment: COLOR OF URINE MAY AFFECT DIPSTICK RESULTS.CARTON LETTERING MACHINE OPERATOR TO SPECIFY Performed By: #### L 400.0001 ####[facility] [address] [place], [address] Mucus Ql (Urine sed) 0 SEEN Normal [facility] Comment on above: Order Comment: COLOR OF URINE MAY AFFECT DIPSTICK RESULTS.CARTON LETTERING MACHINE OPERATOR TO SPECIFY Performed By: #### L 400.0001 ####[facility] [id number] [place], [address] WBC 0 SEEN Normal 0-5 [facility] Comment on above: Order Comment: COLOR OF URINE MAY AFFECT DIPSTICK RESULTS.CARTON LETTERING MACHINE OPERATOR TO SPECIFY Performed By: #### L 400.0001 ####[facility] [id number] [place], [address] Gastroenterology Visit Repor ton 03-11-2024 Gastroenterology Visit Report [facility] [address] [place] [address] OFFICE VISIT Date of Service: 03/11/24 MR#: [id number] Acct: [id number] Name: ANUSHA VIDAL Rep #: [id number] : 1950 Provider: Juliette Trejo DO Age/Sex: 74/F Location: [facility] [place] Status: Signed Intake Vital Signs 06/11/23 08:46 01/30/24 09:39 Height 4 ft 11 in 4 ft 11 in Intake Visit Reasons: 6 M FU Allergies Iodinated Contrast Media (Iodinated Contrast Media - IV Dye) Allergy (Verified 01/30/24 09:46) Hives levofloxacin Adverse Reaction (Verified 01/30/24 09:46) abdominal pain naproxen (From Naprosyn) Adverse Reaction (Verified 01/30/24 09:46) Nausea Medications ???Medication ???Instructions ???Recorded ???Confirmed ???Type tizanidine 4 mg tablet 4 mg PO QHS SPASMS 10/27/20 03/11/24 History polyethylene glycol 3350 17 17 g PO PRN PRN Constipation 08/21/21 03/11/24 History gram/dose oral powder (Miralax) multivitamin with minerals-folic 2 tab PO DAILY 08/28/21 03/11/24 History acid 200 mcg chewable tablet (Multivitamin Gummies) atenolol 25 mg tablet 12.5 mg PO DAILY 03/05/23 03/11/24 History simvastatin 40 mg tablet 40 mg PO QHS CHOLESTEROL #90 tabs 04/14/23 03/11/24 Rx calcium 600 mg (as 1 cap PO DAILY 06/11/23 03/11/24 History carbonate)-vitamin D3 25 mcg (1,000 unit) capsule warfarin 2 mg tablet 2 mg PO SUMOWEFRSA 06/11/23 03/11/24 History warfarin 3 mg tablet 3 mg PO TUTH BLOOD THINNER 06/11/23 03/11/24 History atenolol 25 mg tablet 25 mg PO QHS Dose was increased. 11/05/23 03/11/24 Rx #135 tabs acetaminophen 500 mg tablet 500 mg PO Q6H PRN Pain 01/30/24 03/11/24 History amoxicillin 500 mg capsule 2,000 mg PO ONCE PRN 01/30/24 03/11/24 History levothyroxine 75 mcg tablet 75 mcg PO QDAY 01/30/24 03/11/24 History lidocaine HCl 2 % mucosal solution 1 applic PO ONCE PRN 01/30/24 03/11/24 History omeprazole 20 mg capsule,delayed 20 mg PO BID #60 caps 03/10/24 03/11/24 Rx release Have you fallen in the past year?: No PFSH Medical History Ambulates with cane History of edema Loss of consciousness Gastric reflux History of pain when walking Dysphagia Wears glasses Cancer Thyroid disease High cholesterol DVT (deep venous thrombosis) Blood disorder Injury of back Back pain TIA (transient ischemic attack) History of IBS Shortness of breath on exertion History of stress test History of echocardiogram Normal stress echocardiogram Cardiology follow-up encounter History of irregular heartbeat Chest pain Abdominal pain Essential (primary) hypertension Pure hypercholesterolemia Palpitations Atherosclerotic heart disease of [place] coronary artery without angina pectoris History of deep vein thrombophlebitis of lower extremity Arthritis Dyspnea on exertion Atypical chest pain Factor V deficiency Vertigo History of TIA (transient ischemic attack) GERD (gastroesophageal reflux disease) History of thyroid cancer Chronic back pain Bicuspid aortic valve Hypothyroidism (acquired) Surgical History Hx of colonoscopy S/P insertion of spinal cord stimulator ( 05/14/23) Hx of right cataract extraction Hx of left cataract extraction History of appendectomy ( 08/2021) History of repair of hiatal hernia ( 08/2021) Hx of thumb surgery History of cardiac catheterization History of carpal tunnel release of both wrists History of bilateral cataract extraction History of left heart catheterization ( 11/2007) History of thyroidectomy History of cholecystectomy Family History Father , age 65 CAD [...] do you feel safe at home: Yes HPI HPI Details: ANUSHA VIDAL, is a 74 F who presents to the office today for follow up. PMH factor V Leiden (anticoagulation), lumbar flexion s/p kyphoplasty (pain medication). Prior workup: Gastric emptying study 04.16.21 timed at 55.04 minutes (normal 12-56 minutes). Previous study 7.8.15 timed at 32.[address] abd/pel .11.20 found liver cysts without lesion; hiatal hernia; retained stool throughout colon. *BGI established 1.14.22 for epigastric pain and difficulty eating. EGD performed 3.08.21 finding tortuous esophagus; LA Grade A reflux esophagitis; large hiatal hernia; gastric polyps. (more content not included)... [facility] Office Visit (AGGENS 4) YOUNGANUSHA Goncalves ([id number]) 1950 F Date Time Provider Department 03/04/24 11:00 AM AGATHA BERNABE During your visit today, we recorded the following information about you: Pulse Blood pressure Weight Height 63/minute 116/72 58.3 kg 1.499 m Agatha Bernabe MD 03/04/2024 12:04 PM Signed [facility] [address] [place] [address] Agatha Bernabe MD Reflux H/P History of Present Illness: Patient is a 74 year old female whose Body mass index is 25.97 kg/m?. who presents to general surgery clinic for initial consultation. The patient presents with chief complaint of New Patient. They report a history of heartburn, dysphagia, and regurgitation which have been ongoing for for last 8 months or so with heartburn and regurg. She did have relief after her surgery in 2021 for at least a year. Exacerbating factors: tomato based foods, acidic foods . Alleviating factors: sitting up, taking antacids, and elevating the head. Additional symptoms: None. Prior workup: EGD. Laparoscopic PEHR with Toupet fundoplication-09/05/19 22- reviewed op note from Dr Pimentel at [place]- done with ethibond suture Lap cholecystectomy 2013 Interval update: Continues to have severe heartburn and occasional regurgitation. She feels the acid build up in her throat as well. Symptoms did worsen when she had to stop her PPI and improved once restarted. Review of Systems: Review of Systems Constitutional: Negative. HENT: Negative. Eyes: Negative. Respiratory: Negative. Cardiovascular: Negative. Gastrointestinal: Positive for heartburn. Genitourinary: Negative. Musculoskeletal: Negative. Skin: Negative. Neurological: Negative. Endo/Heme/Allergies: Negative. Psychiatric/Behavioral: Negative. Past Medical History: PAST MEDICAL HISTORY Diagnosis Date Arrhythmia Benign neoplasm of stomach Bicuspid aortic valve Blood dyscrasia Chronic back pain Chronic obstructive pulmonary disease (COPD) (HCC) Coronary artery disease Diverticulosis 03/10/2023 AQUINO (dyspnea on exertion) Duodenitis without mention of hemorrhage DVT (deep venous thrombosis) ([facility]) 12/2007 Right Lower leg DVT (deep venous thrombosis) ([facility]) 2010 Essential hypertension Factor V Leiden (HCC) GERD (gastroesophageal reflux disease) Hiatal hernia repaire 2021 AND recurrent 2023 High cholesterol History of IBS Hypothyroidism (acquired) Mini stroke 2011 Personal history of colonic polyps 11/28/2008 Postmenopausal bleeding Postmenop. bleeding RUQ pain 11/04/2013 Stroke (HCC) Syncope Tubular adenoma of colon 08/17/2004 in 2005, 2008 Tubular adenoma of rectum 12/06/2004 Vertigo Past Surgical History: PAST SURGICAL HISTORY Procedure Laterality Date ; THYROIDECTOMY TOTAL OR COMPLETE 2009 COLONOSCOPY 11/22/2005 COLONOSCOPY 12/15/2006 COLONOSCOPY 12/27/2011 Normal - 5 yr follow up - prior polyps COLONOSCOPY [address] Yoselin Sheikh COLONOSCOPY 10/16/2018 EGD WITH BIOPSY(S) 11/22/2005 EGD WITH BIOPSY(S) 12/15/2006 EGD WITH BIOPSY(S) 11/28/2008 GASTRIC POLYPS, SMALL HIATAL HERNIA EGD WITH BIOPSY(S) 12/27/2011 small to mod hiatal hernia, duodenitis - mild EGD WITH BIOPSY(S) 10/25/2014 small hiatal hernia, EGD WITH BIOPSY(S) 10/16/2018 small hiatal hernia; Dr. Royal EGD WITH BIOPSY(S) 11/26/2023 large recurrent hiatal hernia; Dr. Trejo EGD WITH BIOPSY(S) 02/11/2024 LA Grade D esophagitis; large recurrent HH; Dr. Rosaline Asher COLONOSCOPY WITH POLYPECTOMY 11/28/2008 SMALL POLYPS TRANSVERSE FINGER SURGERY HX thumb LAPAROSCOPY SURG CHOLECYSTECTOMY 11/04/2013 LAPS RPR PARAESPHGL HRNA INCL FUNDPLSTY W/O MESH 09/04/2021 Toupet; Dr. Pimentel at [place] LEFT HEART CATH,PERCUTANEOUS 12/2007 RELEASE OF TRANSVERSE CARPAL LIGAMENT Bilateral REMV CATARACT EXTRACAP,INSERT LENS Bilateral S SPINAL CORD STIMULATOR, SPHINCTEROTOMY ANAL DIVISION SPHINCTER SPX 04/15/2005 For anal Fissures Current Medications: Current Outpatient Medications Medication Sig polyethylene glycol 3350 (MIRALAX) 17 gram/dose powder 17 g. As needed acetaminophen (TYLENOL) 500 mg tablet Take 1,000 mg by mouth. MULTI-VITAMIN ORAL Take by mouth. levothyroxine (LEVOXYL) 75 mcg tablet Take 75 mcg by mouth once daily. atenolol 25 mg tablet Take 25 mg by mouth once daily. I/2 tab in AM and 1 tab at night simvastatin 80 mg tablet Take 0.5 tablets by mouth once daily. Tizanidine HCl 4 mg capsule Take 1 capsule by mouth three times daily. warfarin (COUMADIN) 3 mg tablet once daily. Takes 3 mg on tu and thurs. 2 mg on mon, wed, fri, sat, sun omeprazole(PRILOSEC 40 MG CAP) Take one(1) capsule daily. (Patient taking differently: Take by mouth. 20 mg twice a day) No current facility-administered medications for this visit. Allergies: Contr (more content not included)... Normal [facility] ANES POSTPROC EVALon 024 ANES POSTPROC EVAL HNO ID: [id number] Author: VICENTE PITTS MD Service: Anesthesiology Author Type: Anesthesiologist Type: Anesthesia Postprocedure Evaluation Filed: 02/11/2024 15:51 Note Text: POST ANESTHESIA EVALUATION NOTE : 1950 Procedure Summary Date: 02/11/24 Room / Location: [facility] Anesthesia Start: 1508 Anesthesia Stop: 1530 Procedure: EGD - THERAPEUTIC, EUS, OR TUBE INTERVENTIONS Diagnosis: Paraesophageal hernia (Heartburn) (Established gastro-esophageal reflux disease) Scheduled Providers: Agatha Bernabe MD Responsible Provider: Vicente Pitts MD Anesthesia Type: MAC ASA Status: 3 Anesthesia Type: MAC Last Vitals Vitals Value Taken Time BP 118/71 02/11/24 1543 Temp 36.7 ?C (98 ?F) 02/11/24 1529 Pulse 74 02/11/24 1543 Resp 18 02/11/24 1543 SpO2 96 % 02/11/24 1543 Post Anesthesia Patient Status Patient Evaluation: PACU. PACU/ICU Patient Condition: stable. Neurological Status: aware and responsive. Pulmonary Status: breathing comfortably on room air Airway Control: returned to baseline unsupported. Cardiovascular Status: stable. Pain Management: clinically adequate Postoperative Hydration: acceptable. Intraoperative Events: no significant anesthesia events Post Operative Nausea/Vomiting Status: no significant post operative nausea or vomiting Recommendation: continue current plan of care. Anesthesia Observations No Documentation SIGNATURE: Vicente Pitts MD PATIENT NAME: Anusha Vidal DATE: February 11, 2024 TIME: 3:51 PM CSN: [id number] Normal [facility] ANES PRE-OPon 02-11-2024 ANES PRE-OP HNO ID: [id number] Author: VICENTE PITTS MD Service: Anesthesiology Author Type: Anesthesiologist Type: Anesthesia Preprocedure Evaluation Filed: 02/11/2024 14:46 Note Text: ANESTHESIOLOGY DAY OF SURGERY NOTE : 1950 Procedure Information Date/Time: 02/11/24 1510 Scheduled providers: Agatha Bernabe MD Procedure: EGD - THERAPEUTIC, EUS, OR TUBE INTERVENTIONS Location: [facility] Estimated body mass index is 25.77 kg/m? as calculated from the following: Height as of 01/14/24: 149.9 cm (4' 11). Weight as of 01/14/24: 57.9 kg (127 lb 9.6 oz). Most recent hematocrit and potassium results: No results found for this basename: HCT,HEMATOCRIT,K,POTASS IUM Relevant Problems No relevant active problems I - PHYSICAL EVALUATION AIRWAY Patient intubated: No. Tracheostomy tube not present Mallampati: II. TM distance: >3 FB. Neck ROM: full ROM without neurological symptoms. Mouth opening: adequate. Short neck: no. Thick neck: no II - ANESTHESIA PLAN ASA Score: 3 Anesthetic Plan: MAC NPO Status: adequate Beta Iván Monitoring Plan Monitoring plan: standard ASA. Post Procedure Analgesic Plan Informed Consent Anesthetic risks, benefits, alternatives, personnel and consent discussed: yes. Patient / Responsible [employer] Party agrees to proceed: yes Patient / Surrogate agrees to blood products: blood products not planned Vitals Value Taken Time BP 132/77 02/11/24 1420 Pulse 62 02/11/24 1420 Resp 14 02/11/24 1420 Temp 36 ?C (96.8 ?F) 02/11/24 1420 SpO2 98 % 02/11/24 1420 Outpatient Medications as of 02/11/2024 Medication Sig MULTI-VITAMIN ORAL Take by mouth. levothyroxine (LEVOXYL) 75 mcg tablet Take 75 mcg by mouth once daily. atenolol 25 mg tablet Take 25 mg by mouth once daily. I/2 tab in AM and 1 tab at night simvastatin 80 mg tablet Take 0.5 tablets by mouth once daily. Tizanidine HCl 4 mg capsule Take 1 capsule by mouth three times daily. warfarin (COUMADIN) 3 mg tablet once daily. omeprazole(PRILOSEC 40 MG CAP) Take one(1) capsule daily. No current facility-administered medications on file as of 02/11/2024. I have interviewed and examined the patient. I have reviewed the medical record and/or the pre-anesthesia evaluation, pertinent labs, and test results. This contains updated information obtained within 48 hours of Surgery/Procedure. SIGNATURE: Vicente Pitts MD PATIENT NAME: Anusha Vidal DATE: February 11, 2024 TIME: 2:22 PM CSN: [id number] Normal [facility] EGD Study observation Jessica santacruz 02-11-2024 [facility] Gastrointestinal Endoscopy Patient Name: Anusha Vidal Procedure Date: 02/11/2024 2:57 PM Date of : 1950 Admit Type: Outpatient Room: [place] [address] Gender: Female Note Status: Finalized Attending MD: Agatha Bernabe MD, [id number] Procedure: Upper GI endoscopy Indications: Heartburn, Gastro-esophageal reflux disease Providers: Agatha Bernabe MD Patient Profile: Refer to note in patient chart for documentation of history and physical. Referring Physician: Agatha Bernabe MD (Referring MD) Medicines: Monitored Anesthesia Care Complications: No immediate complications. Procedure: Pre-Anesthesia Assessment: - Prior to the procedure, a History and Physical was performed, and patient medications and allergies were reviewed. The patient's tolerance of previous anesthesia was also reviewed. The risks and benefits of the procedure and the sedation options and risks were discussed with the patient. All questions were answered, and informed consent was obtained. Prior Anticoagulants: The patient has taken Coumadin (warfarin), last dose was 5 days prior to procedure. ASA Grade Assessment: III - A patient with severe systemic disease. After reviewing the risks and benefits, the patient was deemed in satisfactory condition to undergo the procedure. After obtaining informed consent, the endoscope was passed under direct vision. Throughout the procedure, the patient's blood pressure, pulse, and oxygen saturations were monitored continuously. The Endoscope was introduced through the mouth, and advanced to the duodenal bulb. I was present and participated during the entire procedure, including non-lopez portions, and during the administration and monitoring of Moderate Sedation. The upper GI endoscopy was accomplished without difficulty. The patient tolerated the procedure well. Moderate Sedation: See the other procedure note for documentation of moderate sedation with intraservice time. Exam was performed under monitored anesthesia care (MAC) Findings: The Z-line was regular and was found 31 cm from the incisors. LA Grade D (one or more mucosal breaks involving at least 75% of esophageal circumference) esophagitis with no bleeding was found. Biopsies were taken with a cold forceps for histology. The stomach was normal. Biopsies were taken with a cold forceps for Helicobacter pylori testing. A large hiatal hernia was present. The fundoplication was herniated through the chest. The examined duodenum was normal. Estimated Blood Loss: Estimated blood loss: none. Impression: - Z-line regular, 31 cm from the incisors. - LA Grade D reflux esophagitis with no bleeding. Rule out Horowitz's esophagus. Biopsied. - Normal stomach. Biopsied. - Large hiatal hernia. - Normal examined duodenum. Recommendation: - Resume previous diet. - Continue present medications. - Await pathology results. Procedure Code(s): --- Professional --- 85174, Esophagogastroduodenosc opy, flexible, transoral; with biopsy, single or multiple --- Technical --- 92530, Esophagogastroduodenosc opy, flexible, transoral; with biopsy, single or multiple Diagnosis Code(s): --- Professional --- K21.00, Gastro-esophageal reflux disease with esophagitis, without bleeding K44.9, Diaphragmatic hernia without obstruction or gangrene R12, Heartburn --- Technical --- K21.00, Gastro-esophageal reflux disease with esophagitis, without bleeding K44.9, Diaphragmatic hernia without obstruction or gangrene (more content not included)... PROVATION [facility] Radiology Study observation (narrative) [facility] HISTORY PHYSICALon HISTORY PHYSICAL HNO ID: [id number] Author: FATOU GROVE APRN.CNP Service: Anesthesiology Author Type: Nurse Practitioner Type: H&P Filed: 02/11/2024 14:33 Note Text: HISTORY AND PHYSICAL EXAMINATION SERVICE DATE: 02/11/2024 SERVICE TIME: 2:23 PM PRIMARY CARE PHYSICIAN: Adelina Alvarenga DO REASON FOR VISIT: The reason for this visit is To perform a comprehensive review of the patients past medical history, assess their current health status and obtain any additional testing required based on anesthesia guidelines. To assess and identify potential anesthesia problems, particularly those that may suggest potential complications or contraindications to the planned procedure. The patient has the following: ACTIVE PROBLEM LIST Personal History of Colonic Polyps Anal Fissure Benign Neoplasm of Colon Duodenitis Without Mention of Hemorrhage Esophagitis, Unspecified Gastroesophageal Reflux Disease Without Esophagitis Nontoxic Multinodular Goiter Abdominal Pain, Unspecified Site Paraesophageal Hernia Malignant Neoplasm of Thyroid Gland (Hcc) Other Symptoms Involving Digestive System(787.99) Benign Neoplasm of Stomach Abdominal Pain, Epigastric Constipation Anal Or Rectal Pain Pre-Op Examination Stroke (Hcc) Factor V Leiden (Hcc) Dvt (Deep Venous Thrombosis) (Formerly [facility]) Postoperative Hypothyroidism Primary Hypertension Mixed Hyperlipidemia Subjective CHIEF COMPLAINT: Preoperative Examination HPI: Patient present to [facility] for the above procedure. Patient here for routine Upper GI Endoscopy screening. Patient states that she believes her last EGD was around July of 2021 in [place]. Endorses nausea, vomiting, and stomach burning. Patient denies any diarrhea or constipation. Denies any abdominal pain. Denies any melena, hematochezia, or hematemesis. Patient denies any other problems at this time. Denies any family history of colon cancer or other gastric cancer. Patient is agreeable to planned procedure. METS: Walk a block or two on level ground (2.75 METs) Patient denies any CP/SOB with above activity. PAST MEDICAL HISTORY No date: Arrhythmia No date: Benign neoplasm of stomach No date: Bicuspid aortic valve No date: Blood dyscrasia No date: Chronic back pain No date: Chronic obstructive pulmonary disease (COPD) ([facility]) No date: Coronary artery disease 03/10/2023: Diverticulosis No date: AQUINO (dyspnea on exertion) No date: Duodenitis without mention of hemorrhage 12/2007: DVT (deep venous thrombosis) ([facility]) Comment: Right Lower leg 2010: DVT (deep venous thrombosis) ([facility]) No date: Essential hypertension No date: Factor V Leiden ([facility]) No date: GERD (gastroesophageal reflux disease) No date: Hiatal hernia Comment: repaire 2021 AND recurrent 2023 No date: High cholesterol No date: History of IBS No date: Hypothyroidism (acquired) 2010: Mini stroke 11/28/2008: Personal history of colonic polyps No date: Postmenopausal bleeding Comment: Postmenop. bleeding 11/04/2013: RUQ pain No date: Stroke (HCC) No date: Syncope 08/17/2004: Tubular adenoma of colon Comment: in 2005, 200812/06/2004: Tubular adenoma of rectum No date: Vertigo PAST SURGICAL HISTORY 2010: ; THYROIDECTOMY TOTAL OR COMPLETE 11/22/2005: COLONOSCOPY 12/15/2006: COLONOSCOPY 12/27/2011: COLONOSCOPY Comment: Normal - 5 yr follow up - prior polyps 2017: COLONOSCOPY Comment: by Dr Yoselin Sheikh 10/16/2018: COLONOSCOPY 11/22/2005: EGD WITH BIOPSY(S) 12/15/2006: EGD WITH BIOPSY(S) 11/28/2008: EGD WITH BIOPSY(S) Comment: GASTRIC POLYPS, SMALL HIATAL HERNIA 12/27/2011: EGD WITH BIOPSY(S) Comment: small to mod hiatal hernia, duodenitis - mild 10/25/2014: EGD WITH BIOPSY(S) Comment: small hiatal hernia, 10/16/2018: EGD WITH BIOPSY(S) Comment: small hiatal hernia; Dr. Royal 11/26/2023: EGD WITH BIOPSY(S) Comment: large recurrent hiatal hernia; Dr. Trejo 11/28/2008: F COLONOSCOPY WITH POLYPECTOMY Comment: SMALL POLYPS TRANSVERSE No date: FINGER SURGERY HX Comment: thumb 11/04/2013: LAPAROSCOPY SURG CHOLECYSTECTOMY 09/04/2021: LAPS RPR PARAESPHGL HRNA INCL FUNDPLSTY W/O MESH Comment: Grabiel; Dr. Pimentel at [place] 12/2007: LEFT HEART CATH,PERCUTANEOUS No date: RELEASE OF TRANSVERSE CARPAL LIGAMENT; Bilateral No date: REMV CATARACT EXTRACAP,INSERT LENS; Bilateral No date: S SPINAL CORD STIMULATOR, 04/15/2005: SPHINCTEROTOMY ANAL DIVISION SPHINCTER SPX Comment: For anal Fissures FAMILY HISTORY Problem Relation Age of Onset Diabetes Mother Hypertension Mother Stroke Father Heavy smoker SOCIAL HISTORY: Social History Tobacco Use Smoking status: Never Smokeless tobacco: Never Substance Use Topics Alcohol use: No Drug use: No Prior to Admission medications as of 02/11/24 1422 Medication Sig Last Dose Taking MULTI-VITAMIN ORAL Take by mouth. 02/10/2024 Yes levothyroxine (LEVOXYL) 75 mcg tablet Take 75 mcg by mouth once daily. 02/11/20 (more content not included)... Normal [facility] SURGICAL PATHOLOGYon 024 CASE REPORT Normal [facility] Comment on above: Order Comment: Speci men Type: TISSUE SPECIMEN Ordering Facility: [facility] Address: [address] [place], [place] [address] [address] Result Comment: Surg [facility] Pathology Report Case: [id number] Authorizing Provider: Agatha Bernabe MD Collected: 02/11/2024 03:23 PM Ordering Location: [facility] Received: 02/12/2024 08:07 AM Pathologist: Elsa Morales MD Specimens: A) - Stomach, Antrum, Biopsy, antrum B) - Esophagogastric Junction, Biopsy Performed By: #### S #### [facility] CLIA [id number] [address] FINAL DIAGNOSIS Normal [facility] Comment on above: Order Comment: Speci men Type: TISSUE SPECIMEN Ordering Facility: [facility] Address: [address] [place] [address] Result Comment: David beebe, antrum, biopsy: - Gastric mucosa with no morphologic evidence of Helicobacter pylori. - No intestinal metaplasia, dysplasia or malignancy is seen. B. Esophagogastric junction, biopsy: - Esophageal squamous mucosa with focal features suggestive of gastroesophageal reflux disease. Performed By: #### S #### [facility] CLIA [id number] [address] FINAL PERFORMING LAB Normal [facility] Comment on above: Order Comment: Speci men Type: TISSUE SPECIMEN Ordering Facility: [facility] Address: [address] [place] [address] Result Comment: Diag nostic interpretation performed at [facility], [address] [place] [address] CLIA# [id number] Relationship Assoc: Jus Thurston M.D. Performed By: #### S #### [facility] CLIA [id number] [address] GROSS DESCRIPTION Normal [facility] Comment on above: Order Comment: Speci men Type: TISSUE SPECIMEN Ordering Facility: [facility] Address: [address] [place] [address] Result Comment: David monsalve, Antrum, Biopsy Received in formalin and designated stomach antrum is a single price portion of tissue, 1.0 x 0.2 x 0.1 cm. The specimen is entirely submitted cassette A1. B. Esophagogastric Junction, Biopsy Received in formalin and designated esophagogastric junction biopsy is a single price-white portion of tissue, 0.3 x 0.2 x 0.1 cm. The specimen is entirely submitted in cassette B1. KM February 12, 2024 10:22 AM Gross examination performed at [facility], [address] [place] [address] CLIA# [id number] Performed By: #### S #### [facility] CLIA [id number] [address] [place] [address] [facility] Upper GI endoscopyon 024 Upper GI endoscopy [facility] Gastrointestinal Endoscopy Patient Name: Ansuha Vidal Procedure Date: 02/11/2024 2:57 PM Date of : 1950 Admit Type: Outpatient Room: [place] [address] Gender: Female Note Status: Finalized Attending MD: Agatha Bernabe MD, [id number] Procedure: Upper GI endoscopy Indications: Heartburn, Gastro-esophageal reflux disease Providers: Agatha Bernabe MD Patient Profile: Refer to note in patient chart for documentation of history and physical. Referring Physician: Agatha Bernabe MD (Referring MD) Medicines: Monitored Anesthesia Care Complications: No immediate complications. Procedure: Pre-Anesthesia Assessment: - Prior to the procedure, a History and Physical was performed, and patient medications and allergies were reviewed. The patient's tolerance of previous anesthesia was also reviewed. The risks and benefits of the procedure and the sedation options and risks were discussed with the patient. All questions were answered, and informed consent was obtained. Prior Anticoagulants: The patient has taken Coumadin (warfarin), last dose was 5 days prior to procedure. ASA Grade Assessment: III - A patient with severe systemic disease. After reviewing the risks and benefits, the patient was deemed in satisfactory condition to undergo the procedure. After obtaining informed consent, the endoscope was passed under direct vision. Throughout the procedure, the patient's blood pressure, pulse, and oxygen saturations were monitored continuously. The Endoscope was introduced through the mouth, and advanced to the duodenal bulb. I was present and participated during the entire procedure, including non-lopez portions, and during the administration and monitoring of Moderate Sedation. The upper GI endoscopy was accomplished without difficulty. The patient tolerated the procedure well. Moderate Sedation: See the other procedure note for documentation of moderate sedation with intraservice time. Exam was performed under monitored anesthesia care (MAC) Findings: The Z-line was regular and was found 31 cm from the incisors. LA Grade D (one or more mucosal breaks involving at least 75% of esophageal circumference) esophagitis with no bleeding was found. Biopsies were taken with a cold forceps for histology. The stomach was normal. Biopsies were taken with a cold forceps for Helicobacter pylori testing. A large hiatal hernia was present. The fundoplication was herniated through the chest. The examined duodenum was normal. Estimated Blood Loss: Estimated blood loss: none. Impression: - Z-line regular, 31 cm from the incisors. - LA Grade D reflux esophagitis with no bleeding. Rule out Horowitz's esophagus. Biopsied. - Normal stomach. Biopsied. - Large hiatal hernia. - Normal examined duodenum. Recommendation: - Resume previous diet. - Continue present medications. - Await pathology results. Procedure Code(s): --- Professional --- 67174, Esophagogastroduodenosc opy, flexible, transoral; with biopsy, single or multiple --- Technical --- 64670, Esophagogastroduodenosc opy, flexible, transoral; with biopsy, single or multiple Diagnosis Code(s): --- Professional --- K21.00, Gastro-esophageal reflux disease with esophagitis, without bleeding K44.9, Diaphragmatic hernia without obstruction or gangrene R12, Heartburn --- Technical --- K21.00, Gastro-esophageal reflux disease with esophagitis, without bleeding K44.9, Diaphragmatic hernia without obstruction or gangrene R12, Heartburn CPT copyright 2020 [employer]. All rights reserved. The codes documented in this report are preliminary and upon parts control clerk review may be revised to meet current compliance requirements. Attending Participation: I personally performed the entire procedure. Scope In: 3:14:17 PM Scope Out: 3:21:56 PM MD Agatha Barajas MD 02/11/2024 3:50:19 PM This report has been signed electronically by Agatha Bernabe MD Number of Addenda: 0 Note Initiated On: 02/11/2024 2:57 PM Normal [facility] Cardiology Visit Reporton Cardiology Visit Report [facility] [address] [place] [address] OFFICE VISIT Date of Service: 01/30/24 MR#: [id number] Acct: [id number] Name: ANUSHA VIDAL Rep #: [id number] : 1950 Provider: DALE asher Age/Sex: 73/F [place] [facility] [place] Status: Signed HPI HPI History of Present Illness Details: This is a 73-year-old white female who presents today for outpatient cardiovascular follow-up with a history of a CAD (non obstructive), bicuspid aortic valve, palpitations, hyperlipidemia, hypertension, atypical chest pain, and factor V Leiden deficiency. She acknowledges occasional, sharp chest discomfort. This occurs 1-2 times a week. This usually occurs at rest or when first lying down. This can occur with activity. This last for minutes and resolves with rest. She acknowledges occasional palpitations that she describes as throbbing when lying at night. She denies bilateral lower extremity edema or claudication. She acknowledges shortness of breath with activity. She denies shortness of breath at rest, orthopnea, cough, or PND. She denies lightheadedness, dizziness, near-syncope, or syncope. She denies fatigue or weakness. Intake Vital Signs 11/26/23 06:00 01/30/24 09:39 Height 4 ft 11 in 4 ft 11 in Weight: 128 lb BMI 25.8 BP 138/83 H Blood Pressure Location Lt brachial Position Sitting Respiration 16 Pulse 57 L Pulse Source NIBP Intake Visit Reasons: 1 y fu (MOVED FROM [facility]) [employer] Receiver Required: No Is patient in pain?: No Allergies Iodinated Contrast Media (Iodinated Contrast Media - IV Dye) Allergy (Verified 01/30/24 09:46) Hives levofloxacin Adverse Reaction (Verified 01/30/24 09:46) abdominal pain naproxen (From Naprosyn) Adverse Reaction (Verified 01/30/24 09:46) Nausea Medications ???Medication ???Instructions ???Recorded ???Confirmed ???Type tizanidine 4 mg tablet 4 mg PO QHS SPASMS 10/27/20 01/30/24 History polyethylene glycol 3350 17 17 g PO PRN PRN Constipation 08/21/21 01/30/24 History gram/dose oral powder (Miralax) multivitamin with minerals-folic 2 tab PO DAILY 08/28/21 01/30/24 History acid 200 mcg chewable tablet (Multivitamin Gummies) atenolol 25 mg tablet 12.5 mg PO DAILY 03/05/23 01/30/24 History simvastatin 40 mg tablet 40 mg PO QHS CHOLESTEROL #90 tabs 04/14/23 01/30/24 Rx calcium carbonate 600 mg-vitamin 1 cap PO DAILY 06/11/23 01/30/24 History D3 25 mcg (1,000 unit) capsule warfarin 2 mg tablet 2 mg PO SUMOWEFRSA 06/11/23 01/30/24 History warfarin 3 mg tablet 3 mg PO TUTH BLOOD THINNER 06/11/23 01/30/24 History atenolol 25 mg tablet 25 mg PO QHS Dose was increased. 11/05/23 01/30/24 Rx #135 tabs omeprazole 20 mg capsule,delayed 20 mg PO BID #60 caps 11/14/23 01/30/24 Rx release acetaminophen 500 mg tablet 500 mg PO Q6H PRN Pain 01/30/24 01/30/24 History amoxicillin 500 mg capsule 2,000 mg PO ONCE PRN 01/30/24 01/30/24 History levothyroxine 75 mcg tablet 75 mcg PO QDAY 01/30/24 01/30/24 History lidocaine HCl 2 % mucosal solution 1 applic PO ONCE PRN 01/30/24 01/30/24 History Ejection fraction %: 55 Have you fallen in the past year?: No PFSH Medical History Ambulates with cane History of edema Loss of consciousness Gastric reflux History of pain when walking Dysphagia Wears glasses Cancer Thyroid disease High cholesterol DVT (deep venous thrombosis) Blood disorder Injury of back Back pain TIA (transient ischemic attack) History of IBS Shortness of breath on exertion History of stress test History of echocardiogram Normal stress echocardiogram Cardiology follow-up encounter History of irregular heartbeat Chest pain Abdominal pain Essential (primary) hypertension Pure hypercholesterolemia Palpitations Atherosclerotic heart disease of [place] coronary artery without angina pectoris History of deep vein thrombophlebitis of lower extremity Arthritis Dyspnea on exertion Atypical chest pain Factor V deficiency Vertigo History of TIA (transient ischemic attack) GERD (gastroesophageal reflux disease) History of thyroid cancer Chronic back pain Bicuspid aortic valve Hypothyroidism (acquired) Surgical History Hx of colonoscopy S/P insertion of spinal cord stimulator ( 05/14/23) Hx of right cataract extraction Hx of left cataract extraction History of appendectomy ( 08/2021) History of repair of hiatal hernia ( 08/2021) Hx of thumb surgery History of cardiac catheterization History of carpal tunnel release of both wrists History of bilateral cataract extraction History of left heart catheterization ( 11/2007) History of thyroidectomy History of cholecystectomy Family History (Reviewed 0 (more content not included)... Normal [facility] CNCOon 01-14-2024 CNCO Letter Text Normal [facility] CNOVon 01-14-2024 CNOV Office Visit (AGGENS 4) ANUSHA VIDAL ([id number]) 1950 F Date Time Provider Department 01/14/24 11:00 AM AGATHA BERNABE During your visit today, we recorded the following information about you: Pulse Blood pressure Weight Height 75/minute 122/84 57.9 kg 1.499 m Agatha Bernabe MD 01/14/2024 12:19 PM Signed [facility] [address] [facility] [place] [address] Agatha Bernabe MD New Reflux H/P Referred by: Luan Chapa* Consultation requested by Dr. Chapa for an opinion regarding recurrent hiatal hernia. My final recommendations will be communicated back to the requesting physician by way of shared Medical record or letter to requesting physician via US mail. History of Present Illness: Patient is a 73 year old female whose Body mass index is 25.77 kg/m?. who presents to general surgery clinic for initial consultation. The patient presents with chief complaint of New Patient. They report a history of heartburn, dysphagia, and regurgitation which have been ongoing for for last 8 months or so with heartburn and regurg. She did have relief after her surgery in 2021 for at least a year. Exacerbating factors: tomato based foods, acidic foods . Alleviating factors: sitting up, taking antacids, and elevating the head. Additional symptoms: None. Prior workup: EGD. Laparoscopic PEHR with Toupet fundoplication-09/05/19 22- reviewed op note from Dr Pimentel at [place]- done with ethibond suture Lap cholecystectomy 2013 Review of Systems: Review of Systems Constitutional: Negative. HENT: Negative. Eyes: Negative. Respiratory: Negative. Cardiovascular: Negative. Gastrointestinal: Positive for heartburn. Genitourinary: Negative. Musculoskeletal: Negative. Skin: Negative. Neurological: Negative. Endo/Heme/Allergies: Negative. Psychiatric/Behavioral: Negative. Past Medical History: PAST MEDICAL HISTORY No date: Arrhythmia No date: Benign neoplasm of stomach No date: Bicuspid aortic valve No date: Blood dyscrasia No date: Chronic back pain No date: Chronic obstructive pulmonary disease (COPD) ([facility]) No date: Coronary artery disease 03/10/2023: Diverticulosis No date: AQUINO (dyspnea on exertion) No date: Duodenitis without mention of hemorrhage 12/2007: DVT (deep venous thrombosis) ([facility]) Comment: Right Lower leg 2010: DVT (deep venous thrombosis) ([facility]) No date: Essential hypertension No date: Factor V Leiden ([facility]) No date: GERD (gastroesophageal reflux disease) No date: Hiatal hernia Comment: repaire 2021 AND recurrent 2023 No date: High cholesterol No date: History of IBS No date: Hypothyroidism (acquired) 2011: Mini stroke 11/28/2008: Personal history of colonic polyps No date: Postmenopausal bleeding Comment: Postmenop. bleeding 11/04/2013: RUQ pain No date: Stroke ([facility]) No date: Syncope 08/17/2004: Tubular adenoma of colon Comment: in 2005, 200812/06/2004: Tubular adenoma of rectum No date: Vertigo Past Surgical History: PAST SURGICAL HISTORY 2009: ; THYROIDECTOMY TOTAL OR COMPLETE 11/22/2005: COLONOSCOPY 12/15/2006: COLONOSCOPY 12/27/2011: COLONOSCOPY Comment: Normal - 5 yr follow up - prior polyps 2017: COLONOSCOPY Comment: by Dr Yoselin Sheikh 10/16/2018: COLONOSCOPY 11/22/2005: EGD WITH BIOPSY(S) 12/15/2006: EGD WITH BIOPSY(S) 11/28/2008: EGD WITH BIOPSY(S) Comment: GASTRIC POLYPS, SMALL HIATAL HERNIA 12/27/2011: EGD WITH BIOPSY(S) Comment: small to mod hiatal hernia, duodenitis - mild 10/25/2014: EGD WITH BIOPSY(S) Comment: small hiatal hernia, 10/16/2018: EGD WITH BIOPSY(S) Comment: small hiatal hernia; Dr. Royal 11/26/2023: EGD WITH BIOPSY(S) Comment: large recurrent hiatal hernia; Dr. Trejo 11/28/2008: F COLONOSCOPY WITH POLYPECTOMY Comment: SMALL POLYPS TRANSVERSE No date: FINGER SURGERY HX Comment: thumb 11/04/2013: LAPAROSCOPY SURG CHOLECYSTECTOMY 09/04/2021: LAPS RPR PARAESPHGL HRNA INCL FUNDPLSTY W/O MESH Comment: Tomelissaet; Dr. Pimentel at [place] 12/2007: LEFT HEART CATH,PERCUTANEOUS No date: RELEASE OF TRANSVERSE CARPAL LIGAMENT; Bilateral No date: REMV CATARACT EXTRACAP,INSERT LENS; Bilateral 04/15/2005: SPHINCTEROTOMY ANAL DIVISION SPHINCTER SPX Comment: For anal Fissures Current Medications: Current Outpatient Medications Medication Sig MULTI-VITAMIN ORAL Take by mouth. levothyroxine (LEVOXYL) 75 mcg tablet Take 75 mcg by mouth once daily. atenolol 25 mg tablet Take 25 mg by mouth once daily. I tab in AM and 1/2 tab at night Tizanidine HCl 4 mg capsule Take 1 capsule by mouth three times daily. sucralfate (CARAFATE) 1 gram tablet Take 1 tablet by mouth twice daily as needed. (Patient not taking: Reported on 01/07/2024) simvastatin 80 mg tablet Take 0.5 tablets by mouth once daily. acetaminophen-hydrocodo ne 5-500 mg tab (more content not included)... Normal [facility] Telephone (AGGENS4) ANUSHA VIDAL ([id number]) 1950 F Date Time Provider Department 01/14/24 AGATHA BERNABE During your visit today, we recorded the following information about you: Sanjuanita Canales LPN 01/14/2024 12:50 PM Signed EGD/Cruz scheduled for 02/11/2024 at 2:30 pm. Prep/instructions given to patient at checkout. Letter sent to PCP/Adelina Alvarenga D.O. for instruction/clearance for coumadin. Sanjuanita Canales LPN 01/16/2024 11:24 AM Signed coumadin recommendation letter received. Scanned into chart. Patient notified of recommendation instructions. Patient verbalized understanding. Allergies As of Date: 01/14/2024 Noted Allergy Reaction CONTRAST DYE 09/30/2006 4 - Hives LEVAQUIN (LEVOFLOXACIN) 10/14/2014 14 - Other: See Comments Comments: Abd pain NAPROXEN 03/11/2005 8 - GI Upset Date Reviewed: 01/14/2024 Reviewed by: Sanjuanita Canales LPN - Fully Assessed Reason for Visit: Appointment [186] Cmt: EGD CRUZ Prescriptions as of 01/16/2024 - MULTI-VITAMIN ORAL Take by mouth. - levothyroxine (LEVOXYL) 75 mcg tablet Take 75 mcg by mouth once daily. - atenolol 25 mg tablet Take 25 mg by mouth once daily. I tab in AM and 1/2 tab at night - simvastatin 80 mg tablet Take 0.5 tablets by mouth once daily. - Tizanidine HCl 4 mg capsule Take 1 capsule by mouth three times daily. - warfarin (COUMADIN) 3 mg tablet once daily. - omeprazole(PRILOSEC 40 MG CAP) Take one(1) capsule daily. 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 CNOVon 01-07-2024 CNOV Office Visit (AGGENS 3) ANUSHA VIDAL ([id number]) 1950 F Date Time Provider Department 01/07/24 11:00 AM LUAN CHAPA AGGENS3 During your visit today, we recorded the following information about you: Pulse Respiration Blood pressure Weight 73/minute 18/minute 114/65 61.2 kg Height 1.499 m Luan Chapa MD 01/07/2024 12:11 PM Signed Consultation requested by Dr. Alvarenga for an opinion regarding recurrent hiatal hernia. My final recommendations will be communicated back to the requesting physician by way of shared Medical record or letter to requesting physician via US mail. Anusha L Young is a 73 year old White female who presents with complaints of GERD. Back in 2021 she had a hiatal hernia repair with a toupet fundoplication. She most recently had an EGD which showed a recurrence. She also reports having an upper GI. She was placed on 40 mg of pantoprazole which she states helps with her symptoms. Her symptoms consist of regurgitation and burning. She is on Coumadin for factor V Leiden deficiency. 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 No date: Bicuspid aortic valve No date: Blood dyscrasia No date: Chronic obstructive pulmonary disease (COPD) ([facility]) No date: Coronary artery disease No date: Duodenitis without mention of hemorrhage 12/2007: DVT (deep venous thrombosis) ([facility]) Comment: Right Lower leg 2010: DVT (deep venous thrombosis) ([facility]) No date: Factor V Leiden ([facility]) No date: Hiatal hernia Comment: small to mod 2010: Mini stroke 11/28/2008: Personal history of colonic polyps No date: Postmenopausal bleeding Comment: Postmenop. bleeding 11/04/2013: RUQ pain No date: Stroke ([facility]) No date: Syncope 08/17/2004: Tubular adenoma of colon Comment: in 2005, 200812/06/2004: Tubular adenoma of rectum PAST SURGICAL HISTORY 2010: ; THYROIDECTOMY TOTAL OR COMPLETE 11/22/2005: COLONOSCOPY 12/15/2006: COLONOSCOPY 12/27/2011: COLONOSCOPY Comment: Normal - 5 yr follow up - prior polyps 2017: COLONOSCOPY Comment: by Dr Yoselin Sheikh 10/16/2018: COLONOSCOPY 11/22/2005: EGD WITH BIOPSY(S) 12/15/2006: EGD WITH BIOPSY(S) 11/28/2008: EGD WITH BIOPSY(S) Comment: GASTRIC POLYPS, SMALL HIATAL HERNIA 12/27/2011: EGD WITH BIOPSY(S) Comment: small to mod hiatal hernia, duodenitis - mild 10/25/2014: EGD WITH BIOPSY(S) Comment: small hiatal hernia, 10/16/2018: EGD WITH BIOPSY(S) Comment: small hiatal hernia; Dr. Royal 11/28/2008: F COLONOSCOPY WITH POLYPECTOMY Comment: SMALL POLYPS TRANSVERSE 11/04/2013: LAPAROSCOPY SURG CHOLECYSTECTOMY 2021: LAPS RPR PARAESPHGL HRNA INCL FUNDPLSTY W/MESH Comment: Kaly[facility] Pimentel at [place] 12/2007: LEFT HEART CATH,PERCUTANEOUS 04/15/2005: SPHINCTEROTOMY ANAL DIVISION SPHINCTER SPX Comment: For anal Fissures Social History Tobacco Use Smoking status: Never Smokeless tobacco: Never Substance Use Topics Alcohol use: No Drug use: No FAMILY HISTORY Problem Relation Age of Onset Diabetes Mother Hypertension Mother Stroke Father Heavy smoker ALLERGIES Allergen Reactions Contrast Dye Hives Levaquin [Levofloxa* Other: See Comments Abd pain Naproxen GI Upset Current Outpatient Medications Medication Sig MULTI-VITAMIN ORAL Take by mouth. levothyroxine (LEVOXYL) 75 mcg tablet Take 75 mcg by mouth once daily. atenolol 25 mg tablet Take 25 mg by mouth once daily. I tab in AM and 1/2 tab at night simvastatin 80 mg tablet Take 0.5 tablets by mouth once daily. Tizanidine HCl 4 mg capsule Take 1 capsule by mouth three times daily. warfarin (COUMADIN) 3 mg tablet once daily. omeprazole(PRILOSEC 40 MG CAP) Take one(1) capsule daily. sucralfate (CARAFATE) 1 gram tablet Take 1 tablet by mouth twice daily as needed. (Patient not taking: Reported on 01/07/2024) acetaminophen-hydrocodo ne 5-500 mg tablet Take 1 tablet by mouth every 4 hours as needed. No current facility-administered medications for this visit. REVIEW OF SYSTEMS PAIN ASSESSMENT: Negative for pain, history of chronic pain, or current treatment for a chronic pain condition. GENERAL: No weight loss, malaise or fevers NECK: Negative for lumps, goiter, pain and significant neck swelling RESPIRATORY: Negative for cough, hemoptysis, wheezing, COPD, dyspnea or shortness of breath CARDIOVASCULAR: Negative for chest pain, leg swelling, hypertension, CHF or palpitations GI: See HPI : No history of dysuria, frequency or incontinence MUSCULOSKELETAL: Negative for joint pain or swelling, back pain or muscle pain HEMATOLOGY/LYMPHOLOGY: Negative for prolonged bleeding, bruising easily or swollen nodes ENDOCRINE: Negative for cold or heat intolerance, polyuria, polydipsia and goiter PHYSICAL EXAM: BP 114/65 Pulse 73 Resp 18 Ht 4' 11 (1.50m) Wt 135 lb (more content not included)... Normal [facility] 12-22-2023 [facility] Telephone (AGGENS4) ANUSHA VIDAL ([id number]) 1950 F Date Time Provider Department 12/22/23 LUAN CHAPA4 During your visit today, we recorded the following information about you: Emma Cardenas 12/22/2023 1:45 PM Signed Referral received. Attempt # 1 SW patient - patient advised that they had made an appointment with Dr. Chapa. Patient advised they would call them to confirm the appointment and call us back. Allergies As of Date: 12/22/2023 Noted Allergy Reaction CONTRAST DYE 09/30/2006 4 - Hives LEVAQUIN (LEVOFLOXACIN) 10/14/2014 14 - Other: See Comments Comments: Abd pain NAPROXEN 03/11/2005 8 - GI Upset Date Reviewed: 11/02/2018 Reviewed by: Myah Rosario - Fully Assessed Reason for Visit: Appointment [186] Prescriptions as of 12/22/2023 - sucralfate (CARAFATE) 1 gram tablet Take 1 tablet by mouth twice daily as needed. - MULTI-VITAMIN ORAL Take by mouth. - levothyroxine (LEVOXYL) 75 mcg tablet Take 75 mcg by mouth once daily. - atenolol 25 mg tablet Take 25 mg by mouth once daily. I tab in AM and 1/2 tab at night - simvastatin 80 mg tablet Take 0.5 tablets by mouth once daily. - Tizanidine HCl 4 mg capsule Take 1 capsule by mouth three times daily. - acetaminophen-hydrocodo ne 5-500 mg tablet Take 1 tablet by mouth every 4 hours as needed. - warfarin (COUMADIN) 3 mg tablet once daily. - omeprazole(PRILOSEC 40 MG CAP) Take one(1) capsule daily. 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 Anaerobic cultureOrdered By: Mario Mensah on 06-24-2023 Bacteria identified Anaer cx Nom (Unsp spec) No growth in 5 days. [facility] Bacteria identified Anaer cx Nom (Unsp spec) No growth in 5 days. [facility] Gram stain for investigation of transfusion reactionOrdered By: Mario Mensah on 06-24-2023 Microscopic observation Gram stain Nom (Unsp spec) [facility] Microscopic observation Gram stain Nom (Unsp spec) [facility] Routine wound cultureOrdered By: Mario Mensah on 06-24-2023 Bacteria identified Cx Nom (Wound) No growth aerobically. [facility] Bacteria identified Cx Nom (Wound) No growth aerobically. [facility] Laboratory - CoagulationOrde red By: Adelina Alvarenga on 06-11-2023 PT Coag (PPP) [Time] 26.6 s 11.7-14.9 [facility] Whole blood international no rmalized ratio (INR)Ordered By: Adelina Alvarenga on 06-11-2023 INR Coag (Bld) [Relative time] 2.4 {INR} [facility] .Auto Diffon 05-15-2023 Basophil, Absolute 0.0 10 3/mcL Normal 0.0-0.2 [facility] ([place]) Comment on above: Performed By: #### C BC, BMP, ANEU, ADIFF, GFR #### [address] [address] Basophils/100 WBC (Bld) 0.4 % Normal 0.0-2.5 [facility] ([place]) Comment on above: Performed By: #### C BC, BMP, ANEU, ADIFF, GFR #### [address] [address] Eosinophil, Absolute 0.1 10 3/mcL Normal 0.0-0.4 [facility] ([place]) Comment on above: Performed By: #### C BC, BMP, ANEU, ADIFF, GFR #### [address] [address] Eosinophils/100 WBC (Bld) 1.1 % Normal 0.0-7.0 [facility] ([place]) Comment on above: Performed By: #### C BC, BMP, ANEU, ADIFF, GFR #### [address] [address] Lymphocyte, Absolute 0.8 10 3/mcL Normal 0.8-3.9 [facility] ([place]) Comment on above: Performed By: #### C BC, BMP, ANEU, ADIFF, GFR #### [address] [address] Lymphocytes/100 WBC (Bld) 11.0 % Normal 10.0-50.0 [facility] ([place]) Comment on above: Performed By: #### C BC, BMP, ANEU, ADIFF, GFR #### [address] [address] Monocyte, Absolute 0.7 10 3/mcL Normal 0.2-1.0 [facility] ([place]) Comment on above: Performed By: #### C BC, BMP, ANEU, ADIFF, GFR #### [address] [address] Monocytes/100 WBC (Bld) 9.1 % Normal 1.7-13.0 [facility] ([place]) Comment on above: Performed By: #### C BC, BMP, ANEU, ADIFF, GFR #### [address] [address] Neutrophils/100 WBC (Bld) 78.4 % Normal 37.0-80.0 [facility] ([place]) Comment on above: Performed By: #### C BC, BMP, ANEU, ADIFF, GFR #### [address] [address] .GFRon 05-15-2023 GFR 96 ml/min/1.73sqm Normal [facility] ([place]) Comment on above: Result Comment: GFR Population mean for , Non- Americans Ages 20-29 = 116 mL/min/1.73 sq.m. Ages 30-39 = 107 mL/min/1.73 sq.m. Ages 40-49 = 99 mL/min/1.73 sq.m. Ages 50-59 = 93 mL/min/1.73 sq.m. Ages 60-69 = 85 mL/min/1.73 sq.m. Ages 70+ = 75 mL/min/1.73 sq.m. Chronic Kidney Disease: Less than 60 mL/min/1.73 square meters End Stage Renal Disease: Less than 15 mL/min/1.73 square meters Performed By: #### C BC, BMP, ANEU, ADIFF, GFR #### [address] [address] GFR Non- 80 ml/min/1.73sqm Normal [facility] ([place]) Comment on above: Result Comment: GFR Population mean for , Non- Americans Ages 20-29 = 116 mL/min/1.73 sq.m. Ages 30-39 = 107 mL/min/1.73 sq.m. Ages 40-49 = 99 mL/min/1.73 sq.m. Ages 50-59 = 93 mL/min/1.73 sq.m. Ages 60-69 = 85 mL/min/1.73 sq.m. Ages 70+ = 75 mL/min/1.73 sq.m. Chronic Kidney Disease: Less than 60 mL/min/1.73 square meters End Stage Renal Disease: Less than 15 mL/min/1.73 square meters Performed By: #### C BC, BMP, ANEU, ADIFF, GFR #### [address] [address] .NEUABSon 05-15-2023 Neutrophil, Absolute 5.9 10 3/mcL Normal 2.9-6.2 [facility] ([place]) Comment on above: Performed By: #### C BC, BMP, ANEU, ADIFF, GFR #### [address] [address] BMPon 05-15-2023 BUN/Creatinine Ratio 15 ratio Normal 7-27 [facility] ([place]) Comment on above: Performed By: #### C BC, BMP, ANEU, ADIFF, GFR #### [address] [address] Calcium [Mass/Vol] 7.9 mg/dL Low 8.4-10.2 [facility] ([place]) Comment on above: Performed By: #### C BC, BMP, ANEU, ADIFF, GFR #### [address] [address] Chloride [Moles/Vol] 110 mmol/L High 98-107 [facility] ([place]) Comment on above: Performed By: #### C BC, BMP, ANEU, ADIFF, GFR #### [address] [address] CO2 [Moles/Vol] 27 mmol/L Normal 23-31 [facility] ([place]) Comment on above: Performed By: #### C BC, BMP, ANEU, ADIFF, GFR #### [address] [address] Creatinine [Mass/Vol] 0.72 mg/dL Normal 0.55-1.02 [facility] ([place]) Comment on above: Performed By: #### C BC, BMP, ANEU, ADIFF, GFR #### [address] [address] Electrolyte Balance 7.0 mEq/L Normal 4.0-15.0 [facility] ([place]) Comment on above: Performed By: #### C BC, BMP, ANEU, ADIFF, GFR #### [address] [address] Glucose [Mass/Vol] 90 mg/dL Normal 83-110 [facility] ([place]) Comment on above: Performed By: #### C BC, BMP, ANEU, ADIFF, GFR #### [address] [address] Potassium [Moles/Vol] 5.0 mmol/L Normal 3.5-5.1 [facility] ([place]) Comment on above: Performed By: #### C BC, BMP, ANEU, ADIFF, GFR #### [address] [address] Sodium [Moles/Vol] 144 mmol/L Normal 136-145 [facility] ([place]) Comment on above: Performed By: #### C BC, BMP, ANEU, ADIFF, GFR #### [address] [address] Urea nitrogen [Mass/Vol] 11 mg/dL Normal 7-18 [facility] ([place]) Comment on above: Performed By: #### C BC, BMP, ANEU, ADIFF, GFR #### [address] [address] CBCon 05-15-2023 Erythrocyte distribution width (RBC) [Ratio] 13.7 % Normal 11.5-14.5 [facility] ([place]) Comment on above: Performed By: #### C BC, BMP, ANEU, ADIFF, GFR #### [address] [address] Hematocrit (Bld) [Volume fraction] 34.4 % Low 37.0-47.0 [facility] ([place]) Comment on above: Performed By: #### C BC, BMP, ANEU, ADIFF, GFR #### [address] [address] Hgb 11.5 G/dL Low 12.0-16.0 [facility] ([place]) Comment on above: Performed By: #### C BC, BMP, ANEU, ADIFF, GFR #### [address] [address] MCH (RBC) [Entitic mass] 31.7 pg High 27.0-31.2 [facility] ([place]) Comment on above: Performed By: #### C BC, BMP, ANEU, ADIFF, GFR #### [address] [address] MCHC 33.4 G/dL Normal 33.0-37.0 [facility] ([place]) Comment on above: Performed By: #### C BC, BMP, ANEU, ADIFF, GFR #### [address] [address] MCV (RBC) [Entitic vol] 95.0 fL High 80.0-94.0 [facility] ([place]) Comment on above: Performed By: #### C BC, BMP, ANEU, ADIFF, GFR #### [address] [address] Platelet 198 10 3/mcL Normal 130-400 [facility] ([place]) Comment on above: Performed By: #### C BC, BMP, ANEU, ADIFF, GFR #### [address] [address] Platelet mean volume (Bld) [Entitic vol] 7.8 fL Normal 7.4-10.4 [facility] ([place]) Comment on above: Performed By: #### C BC, BMP, ANEU, ADIFF, GFR #### [address] [address] RBC 3.62 10 6/mcL Low 4.20-5.40 [facility] ([place]) Comment on above: Performed By: #### C BC, BMP, ANEU, ADIFF, GFR #### [address] [address] WBC 7.6 10 3/mcL Normal 4.6-10.8 [facility] ([place]) Comment on above: Performed By: #### C BC, BMP, ANEU, ADIFF, GFR #### [facility] [address] [place], [place] [address] LABORATORYOrdered By: SYSTEM SYSTEM on 05-15-2023 Basophil, Absolute 0.0 103/mcL Normal 0.0 - 0.2 10^3/mcL AO Workflow SS Basophils/100 WBC (Bld) 0.4 % Normal 0.0 - 2.5 % AO Workflow SS Calcium [Mass/Vol] 7.9 mg/dL Low 8.4 - 10. 2 mg/dL AO ADM SS Chloride [Moles/Vol] 110 mmol/L High 98 - 10 7 mmol/L AO ADM SS CO2 [Moles/Vol] 27 mmol/L Normal 23 - 31 mmol/L AO ADM SS Creatinine [Mass/Vol] 0.72 mg/dL Normal 0.55 - 1.02 mg/dL AO ADM SS Electrolyte Balance 7.0 mEq/L Normal 4.0 - 15 .0 mEq/L AO ADM SS Eosinophil, Absolute 0.1 103/mcL Normal 0.0 - 0 .4 10^3/mcL AO Workflow SS Eosinophils/100 WBC (Bld) 1.1 % Normal 0.0 - 7.0 % AO Workflow SS Erythrocyte distribution width (RBC) [Ratio] 13.7 % Normal 11.5 - 14.5 % AO Workflow SS GFR/1.73 sq M.predicted among blacks MDRD (S/P/Bld) [Vol rate/Area] 96 ml/min/1.73sqm Invalid Interpretation Code AO Chemistry S Comment on above: Interpretive Data: GFR Population mean for , Non- Americans Ages 20-29 = 116 mL/min/1.73 sq.m. Ages 30-39 = 107 mL/min/1.73 sq.m. Ages 40-49 = 99 mL/min/1.73 sq.m. Ages 50-59 = 93 mL/min/1.73 sq.m. Ages 60-69 = 85 mL/min/1.73 sq.m. Ages 70+ = 75 mL/min/1.73 sq.m. Chronic Kidney Disease: Less than 60 mL/min/1.73 square meters End Stage Renal Disease: Less than 15 mL/min/1.73 square meters GFR/1.73 sq M.predicted among non-blacks MDRD (S/P/Bld) [Vol rate/Area] 80 ml/min/1.73sqm Invalid Interpretation Code AO Chemistry S Comment on above: Interpretive Data: GFR Population mean for , Non- Americans Ages 20-29 = 116 mL/min/1.73 sq.m. Ages 30-39 = 107 mL/min/1.73 sq.m. Ages 40-49 = 99 mL/min/1.73 sq.m. Ages 50-59 = 93 mL/min/1.73 sq.m. Ages 60-69 = 85 mL/min/1.73 sq.m. Ages 70+ = 75 mL/min/1.73 sq.m. Chronic Kidney Disease: Less than 60 mL/min/1.73 square meters End Stage Renal Disease: Less than 15 mL/min/1.73 square meters Glucose [Mass/Vol] 90 mg/dL Normal 83 - 110 mg/dL AO ADM SS Hematocrit (Bld) [Volume fraction] 34.4 % Low 37.0 - 47.0 % AO Workflow SS Hemoglobin (Bld) [Mass/Vol] 11.5 G/dL Low 12.0 - 16.0 G/dL AO Workflow SS Lymphocyte, Absolute 0.8 103/mcL Normal 0.8 - 3 .9 10^3/mcL AO Workflow SS Lymphocytes/100 WBC (Bld) 11.0 % Normal 10.0 - 50.0 % AO Workflow SS MCH (RBC) [Entitic mass] 31.7 pg High 27.0 - 31.2 pg AO Workflow SS MCHC 33.4 G/dL Normal 33.0 - 37.0 G/dL AO Workflow SS MCV (RBC) [Entitic vol] 95.0 fL High 80.0 - 94.0 fL AO Workflow SS Monocyte, Absolute 0.7 103/mcL Normal 0.2 - 1.0 10^3/mcL AO Workflow SS Monocytes/100 WBC (Bld) 9.1 % Normal 1.7 - 13.0 % AO Workflow SS Neutrophil, Absolute 5.9 103/mcL Normal 2.9 - 6 .2 10^3/mcL AO Workflow SS Neutrophils/100 WBC (Bld) 78.4 % Normal 37.0 - 80.0 % AO Workflow SS Platelet mean volume (Bld) [Entitic vol] 7.8 fL Normal 7.4 - 10.4 fL AO Workflow SS Platelets (Bld) [#/Vol] 198 103/mcL Normal 130 - 400 10^3/mcL AO Workflow SS Potassium [Moles/Vol] 5.0 mmol/L Normal 3.5 - 5.1 mmol/L AO ADM SS RBC (Bld) [#/Vol] 3.62 106/mcL Low 4.20 - 5.4 0 10^6/mcL AO Workflow SS Sodium [Moles/Vol] 144 mmol/L Normal 136 - 145 mmol/L AO ADM SS Urea nitrogen [Mass/Vol] 11 mg/dL Normal 7 - 18 mg/dL AO ADM SS Urea nitrogen/Creatinine [Mass ratio] 15 ratio Normal 7 - 27 ratio AO ADM SS WBC (Bld) [#/Vol] 7.6 103/mcL Normal 4.6 - 10.8 10^3/mcL AO Workflow SS LABORATORYOrdered By: Ahmet Hassan on 05-14-2023 INR Coag (PPP) [Relative time] 1.1 {INR} Invalid Interpretation Code AO Hemo[facility] SS Comment on above: Interpretive Data: [place] [employer] (CHEST, 1991, 102:312S-25S) recommended therapeutic range for oral anticoagulant therapy is: LOW RISK: Prophylaxis of venous thrombosis INR: 2.0-3.0 Treatment of pulmonary embolism 2.0-3.0 Prevention of systemic embolism 2.0-3.0 HIGH RISK: Mechanical prosthetic valves 2.5-3.5 PT Coag (PPP) [Time] 12.6 s Normal 9.0 - 1 4.2 seconds AO [facility] SS PROon 05-14-2023 PT Coag (PPP) [Time] 12.6 s Normal 9.0-14.2 [facility] ([place]) Comment on above: Performed By: #### P RO #### [address] [address] PT International Ratio 1.1 Normal [facility] ([place]) Comment on above: Result Comment: [employer] (CHEST, 1991, 102:312S-25S) recommended therapeutic range for oral anticoagulant therapy is: LOW RISK: Prophylaxis of venous thrombosis INR: 2.0-3.0 Treatment of pulmonary embolism 2.0-3.0 Prevention of systemic embolism 2.0-3.0 HIGH RISK: Mechanical prosthetic valves 2.5-3.5 Performed By: #### P RO #### [id number] [place], [place] [address] XR FLUORO 1-2 HRS TECH TIMEo n 05-14-2023 XR FLUORO 1-2 HRS TECH TIME ORIGINAL Images acquired, not reported on this accession number. Normal [facility] ([place]) Laboratory - CoagulationOrde red By: Adelina Alvarenga on 04-28-2023 aPTT Coag (Bld) [Time] 24.5 s 24.1-36.2 [facility] PT Coag (PPP) [Time] 13.4 s 11.7-14.9 [facility] Whole blood international no rmalized ratio (INR)Ordered By: Adelina Alvarenga on 04-28-2023 INR Coag (Bld) [Relative time] 1.0 {INR} [facility] Absolute lymphocyte countOrd ered By: Mario Mensah on 04-07-2023 Lymphocytes Auto (Unsp spec) [#/Vol] 1.38 10*3/uL 0.83-4.51 [facility] Basophil percentageOrdered B y: Mario Mensah on 04-07-2023 Basophils/100 WBC (Bld) 1.1 % 0-1 [facility] Chloride [Moles/Vol] 111 mmol/L 98-107 [facility] Eosinophils/100 WBC (Bld) 2.7 % 0-5 [facility] Glucose [Mass/Vol] 92 mg/dL 74-106 [facility] Neutrophils (Bld) [#/Vol] 2.4 10*3/uL 2.0-7.7 [facility] Neutrophils/100 WBC (Bld) 54.5 % 47-70 [facility] Potassium [Moles/Vol] 3.7 mmol/L 3.5-5.1 [facility] Sodium [Moles/Vol] 142 mmol/L 136-145 [facility] WBC (Bld) [#/Vol] 4.4 10*3/uL 4.4-11.0 [facility] Blood erythrocytes count (nu mber/volume)Ordered By: Mario Mensah on 04-07-2023 RBC (Bld) [#/Vol] 4.33 10*6/uL 4.2-5.4 [facility] Blood hemoglobin measurement (mass/volume)Ordered By: Mario Mensah on 04-07-2023 Hemoglobin (Bld) [Mass/Vol] 13.5 g/dL 12.0-15.0 [facility] Blood lymphocytes/100 leukoc ytesOrdered By: Mario Mensah on 04-07-2023 Lymphocytes/100 WBC (Bld) 31.4 % 19-41 [facility] Blood monocytes/100 leukocyt esOrdered By: Mario Mensah on 04-07-2023 Monocytes/100 WBC (Bld) 9.8 % 0-10 [facility] Blood platelet mean volumeOr dered By: Mario Mensah on 04-07-2023 Platelet mean volume (Bld) [Entitic vol] 9.8 fL 6.2-12.0 [facility] Determination of erythrocyte mean corpuscular volume (MCV)Ordered By: Mario Mensah on 04-07-2023 MCV (RBC) [Entitic vol] 100.5 fL 81-99 [facility] Hematocrit Auto (Bld) [Volum e fraction]Ordered By: Mario Mensah on 04-07-2023 Hematocrit (Bld) [Volume fraction] 43.5 % 37-47 [facility] INR in Blood by Coagulation assayOrdered By: Mario Mensah on 04-07-2023 INR Coag (Bld) [Relative time] 2.5 {INR} [facility] - Chemistry and C hemistry - challengeOrdered By: Mario Mensah on 04-07-2023 CO2 [Moles/Vol] 27.0 mmol/L 21.0-32.0 [facility] Urea nitrogen/Creatinine [Mass ratio] 17.5 mg/mg 10-20 [facility] - CoagulationOrde red By: Mario Mensah on 04-07-2023 aPTT Coag (Bld) [Time] 35.9 s 24.1-36.2 [facility] PT Coag (PPP) [Time] 27.6 s 11.7-14.9 [facility] - Hematology and Cell countsOrdered By: Mario Mensah on 04-07-2023 Erythrocyte distribution width (RBC) [Entitic vol] 50.4 fL 35.1-43.9 [facility] Erythrocyte distribution width (RBC) [Ratio] 13.8 % 11.6-14.6 [facility] Immature granulocytes/100 WBC (Bld) 0.500 % 0.0-0.9 [facility] Comment on above: IG% - Immature Granu locytes (promyelocytes, myelocytes and metamyelocytes) > 1% indicates that a LEFT SHIFT is Present. MCH (RBC) [Entitic mass] 31.2 pg 27.0-32.0 [facility] Nucleated RBC/100 WBC (Bld) [Ratio] 0 % 0-5 [facility] MCHC Auto (RBC) [Mass/Vol]Or dered By: Mario Mensah on 04-07-2023 MCHC (RBC) [Mass/Vol] 31.0 g/dL 32-36 [facility] No Panel InformationOrdered By: Mario Mensah on 04-07-2023 Estimated GFR (MDRD) Amer 91 mL/min >60 [facility] Comment on above: GFR Calc Estimated GFR (MDRD) Non-Af Amer 75 mL/min >60 [facility] Comment on above: Non- GFR Calc Platelets bldOrdered By: Yung Mensah on 04-07-2023 Platelets (Bld) [#/Vol] 240 10*3/uL 150-450 [facility] Serum or plasma calcium darlyn urement (mass/volume)Ordered By: Mario Mensah on 04-07-2023 Calcium [Mass/Vol] 8.7 mg/dL 8.5-10.1 [facility] Serum or plasma creatinine m easurement (mass/volume)Ordered By: Mario Mensah on 04-07-2023 Creatinine [Mass/Vol] 0.80 mg/dL 0.55-1.02 [facility] Comment on above: The validity of the calculated GFR & GFRAA in patients over 70 years has not been determined. Clinical correlation is essential. Serum or plasma urea nitroge n measurement (mass/volume)Ordered By: Mario Mensah on 04-07-2023 Urea nitrogen [Mass/Vol] 14 mg/dL 7-18 [facility] Thin prep Papanicolaou smear with manual screeningOrdered By: Mario Mensah on 04-07-2023 Thin prep Papanicolaou smear with manual screening 4 5-15 [facility] - CoagulationOrde red By: Juliette Trejo on 03-10-2023 INR Coag (Bld) [Relative time] 2.6 {INR} [facility] Comment on above: Critical Value > 4.0 Whole blood prothrombin time Ordered By: Juliette Trejo on 03-10-2023 PT Coag (Bld) [Time] 28.0 s 11.7-14.9 [facility] Basophil percentageOrdered B y: Adelina Alvarenga on 12-04-2022 Bilirubin [Mass/Vol] 0.30 mg/dL 0.20-1.00 [facility] Comment on above: For patients on eltr ombopag therapy, use of Dimension [place] TBIL is not recommended. Chloride [Moles/Vol] 110 mmol/L 98-107 [facility] Glucose [Mass/Vol] 92 mg/dL 74-106 [facility] Potassium [Moles/Vol] 4.5 mmol/L 3.5-5.1 [facility] Protein [Mass/Vol] 6.7 g/dL 6.4-8.2 [facility] Sodium [Moles/Vol] 140 mmol/L 136-145 [facility] - Chemistry and C hemistry - challengeOrdered By: Adelina Alvarenga on 12-04-2022 ALP [Catalytic activity/Vol] 141 U/L 45-117 [facility] ALT [Catalytic activity/Vol] 33 U/L 13-56 [facility] CO2 [Moles/Vol] 27.0 mmol/L 21.0-32.0 [facility] Free T4 [Mass/Vol] 1.12 ng/dL 0.76-1.46 [facility] Globulin (S) [Mass/Vol] 3.1 g/dL 2.2-4.[address] [facility] Urea nitrogen/Creatinine [Mass ratio] 19.1 mg/mg 10-20 [facility] No Panel InformationOrdered By: Adelina Alvarenga on 12-04-2022 Estimated GFR (MDRD) Amer 93 mL/min >60 [facility] Comment on above: GFR Calc Estimated GFR (MDRD) Non-Af Amer 77 mL/min >60 [facility] Comment on above: Non- GFR Calc Free Triiodothyronine (T3) pg/dL 2.0 pg/mL 2.18-3.98 [facility] Thyroid Stimulating Hormone (TSH) 1.55 uIU/mL 0.358-3.74 [facility] Serum or plasma albumin darlyn urement (mass/volume)Ordered By: Adelina Alvarenga on 12-04-2022 Albumin [Mass/Vol] 3.6 g/dL 3.2-5.0 [facility] Serum or plasma albumin/glob ulin mass ratioOrdered By: Adelina Alvarenga on 12-04-2022 Albumin/Globulin [Mass ratio] 1.2 {ratio} 0.9-2.4 [facility] Serum or plasma calcium darlyn urement (mass/volume)Ordered By: Adelina Alvarenga on 12-04-2022 Calcium [Mass/Vol] 8.8 mg/dL 8.5-10.1 [facility] Serum or plasma creatinine m easurement (mass/volume)Ordered By: Adelina Alvaernga on 12-04-2022 Creatinine [Mass/Vol] 0.79 mg/dL 0.55-1.02 [facility] Comment on above: The validity of the calculated GFR & GFRAA in patients over 70 years has not been determined. Clinical correlation is essential. Serum or plasma urea nitroge n measurement (mass/volume)Ordered By: Adelina Alvarenga on 12-04-2022 Urea nitrogen [Mass/Vol] 15 mg/dL 7-18 [facility] Thin prep Papanicolaou smear with manual screeningOrdered By: Adelina Alvarenga on 12-04-2022 Thin prep Papanicolaou smear with manual screening 30 U/L 15-37 [facility] Thin prep Papanicolaou smear with manual screening 3 5-15 [facility] Absolute lymphocyte countOrd ered By: Juliette Trejo on 11-20-2022 Lymphocytes Auto (Unsp spec) [#/Vol] 1.35 10*3/uL 0.83-4.51 [facility] Basophil percentageOrdered B y: Juliette Trejo on 11-20-2022 Basophils/100 WBC (Bld) 1.1 % 0-1 [facility] Eosinophils/100 WBC (Bld) 1.3 % 0-5 [facility] Neutrophils (Bld) [#/Vol] 3.6 10*3/uL 2.0-7.7 [facility] Neutrophils/100 WBC (Bld) 65.2 % 47-70 [facility] WBC (Bld) [#/Vol] 5.6 10*3/uL 4.4-11.0 [facility] Blood erythrocytes count (nu mber/volume)Ordered By: Juliette Trejo on 11-20-2022 RBC (Bld) [#/Vol] 4.17 10*6/uL 4.2-5.4 [facility] Blood hemoglobin measurement (mass/volume)Ordered By: Juliette Trejo on 11-20-2022 Hemoglobin (Bld) [Mass/Vol] 13.3 g/dL 12.0-15.0 [facility] Blood lymphocytes/100 leukoc ytesOrdered By: Juliette Trejo on 11-20-2022 Lymphocytes/100 WBC (Bld) 24.3 % 19-41 [facility] Blood monocytes/100 leukocyt esOrdered By: Juliette Trejo on 11-20-2022 Monocytes/100 WBC (Bld) 7.9 % 0-[address] [facility] Blood platelet mean volumeOr dered By: Juliette Trejo on 11-20-2022 Platelet mean volume (Bld) [Entitic vol] 10.1 fL 6.2-12.0 [facility] Chocolate RASTOrdered By: Ra sabra Trejo on 11-20-2022 Chocolate IgE Qn (S) <0.10 kU/L Class 0 [facility] Comment on above: Performed at: - [address] [id number] Director: Ron Marte MD, Phone: [phone] Determination of erythrocyte mean corpuscular volume (MCV)Ordered By: Juliette Trejo on 11-20-2022 MCV (RBC) [Entitic vol] 99.8 fL 81-99 [facility] Erythrocyte sedimentation ra teOrdered By: Juliette Trejo on 11-20-2022 ESR (Bld) [Velocity] 5 mm/h 0-30 [facility] Hematocrit Auto (Bld) [Volum e fraction]Ordered By: Juliette Trejo on 11-20-2022 Hematocrit (Bld) [Volume fraction] 41.6 % 37-47 [facility] INR in Blood by Coagulation assayOrdered By: Juliette Trejo on 11-20-2022 INR Coag (Bld) [Relative time] 2.7 {INR} [facility] - CoagulationOrde red By: Juliette Trejo on 11-20-2022 PT Coag (PPP) [Time] 29.4 s 11.7-14.9 [facility] - Hematology and Cell countsOrdered By: Juliette Trejo on 11-20-2022 Erythrocyte distribution width (RBC) [Entitic vol] 50.3 fL 35.1-43.9 [facility] Erythrocyte distribution width (RBC) [Ratio] 13.6 % 11.6-14.6 [facility] Immature granulocytes/100 WBC (Bld) 0.200 % 0.0-0.9 [facility] Comment on above: IG% - Immature Granu locytes (promyelocytes, myelocytes and metamyelocytes) > 1% indicates that a LEFT SHIFT is Present. MCH (RBC) [Entitic mass] 31.9 pg 27.0-32.0 [facility] Nucleated RBC/100 WBC (Bld) [Ratio] 0 % 0-5 [facility] - Miscellaneous t estsOrdered By: Juliette Trejo on 11-20-2022 Service comment (Unsp spec) [Interp] Comment . [facility] Comment on above: Levels of Specific I gE Class Description of Class ----- < 0.10 0 Negative 0.10 - 0.31 0/I Equivocal/Low 0.32 - 0.55 I Low 0.56 - 1.40 II Moderate 1.41 - 3.90 III High 3.91 - 19.00 IV Very High 19.01 - 100.00 V Very High >100.00 [facility] MCHC Auto (RBC) [Mass/Vol]Or dered By: Juliette Trejo on 11-20-2022 MCHC (RBC) [Mass/Vol] 32.0 g/dL 32-36 [facility] No Panel InformationOrdered By: Juliette Trejo on 11-20-2022 Scallop Allergen <0.10 kU/L Class 0 [facility] [employer] Allergens (RAST) Negative . [facility] Comment on above: Allergens in this mi x are: Blue mussel Fish [place] Shrimp Tuna Sesame Seed Allergen IgE Antibody <0.10 kU/L Class 0 [facility] Shrimp Allergen <0.10 kU/L Class 0 [facility] Platelets bldOrdered By: Maximiliano Trejo on 11-20-2022 Platelets (Bld) [#/Vol] 265 10*3/uL 150-450 [facility] Serum beef IgE antibody assa y (units/volume)Ordered By: Juliette Trejo on 11-20-2022 Beef IgE Qn (S) <0.10 kU/L Class 0 [facility] Serum black walnut IgE antib lorraine assay (units/volume)Ordered By: Juliette Trejo on 11-20-2022 Black [place] IgE Qn (S) <0.10 kU/L Class 0 [facility] Serum clam IgE antibody assa y (units/volume)Ordered By: Juliette Trejo on 11-20-2022 Clam IgE Qn (S) <0.10 kU/L Class 0 [facility] Serum codfish IgE antibody a ssay (units/volume)Ordered By: Juliette Trejo on 11-20-2022 Codfish IgE Qn (S) <0.10 kU/L Class 0 [facility] r Serum corn IgE antibody assa y (units/volume)Ordered By: Juliette Trejo on 11-20-2022 Brick IgE Qn (S) <0.10 kU/L Class 0 [facility] Serum cow milk IgE antibody assay (units/volume)Ordered By: Juliette Trejo on 11-20-2022 Cow milk IgE Qn (S) <0.10 kU/L Class 0 [facility] Serum egg white IgE antibody assay (units/volume)Ordered By: Juliette Trejo on 11-20-2022 Egg white IgE Qn (S) <0.10 kU/L Class 0 [facility] Serum or plasma C reactive p rotein measurement (mass/volume)Ordered By: Juliette Trejo on 11-20-2022 CRP [Mass/Vol] mg/L 0.0-3.0 [facility] Comment on above: C-Reactive Protein ( CRP) provides useful information for thediagnosis, therapy and monitoring of inflammatory processesand associated diseases. For the evaluation of Relative Riskfor Cardiovascular Disease, a High Sensitivity CRP (HSCRP)should be ordered. Serum peanut IgE antibody as say (units/volume)Ordered By: Juliette Trejo on 11-20-2022 Peanut IgE Qn (S) <0.10 kU/L Class 0 [facility] Serum pork IgE antibody assa y (units/volume)Ordered By: Juliette Trejo on 11-20-2022 Pork IgE Qn (S) <0.10 kU/L Class 0 [facility] Serum soybean IgE antibody a ssay (units/volume)Ordered By: Juliette Trejo on 11-20-2022 Soybean IgE Qn (S) <0.10 kU/L Class 0 [facility] Serum wheat IgE antibody ass ay (units/volume)Ordered By: Juliette Trejo on 11-20-2022 Wheat IgE Qn (S) <0.10 kU/L Class 0 [facility] Serum whole egg IgE antibody assay (units/volume)Ordered By: Juliette Trejo on 11-20-2022 Whole Egg IgE Qn (S) <0.10 kU/L Class 0 [facility] INR in Blood by Coagulation assayOrdered By: Dr. Alvarenga on 09-16-2022 INR Coag (Bld) [Relative time] 2.4 {INR} [facility] - CoagulationOrde red By: Dr. Alvarenga on 09-16-2022 PT Coag (PPP) [Time] 26.2 s 11.7-14.9 [facility] Absolute lymphocyte countOrd ered By: Dr. Alvarenga on 06-26-2022 Lymphocytes Auto (Unsp spec) [#/Vol] 1.42 10*3/uL 0.83-4.51 [facility] Basophil percentageOrdered B y: Dr. Alvarenga on 06-26-2022 Basophils/100 WBC (Bld) 0.8 % 0-1 [facility] Bilirubin [Mass/Vol] 0.80 mg/dL 0.20-1.00 [facility] Comment on above: For patients on eltr ombopag therapy, use of Dimension [place] TBIL is not recommended. Chloride [Moles/Vol] 106 mmol/L 98-107 [facility] Cholesterol [Mass/Vol] 168 mg/dL <200 [facility] Comment on above: <200 mg/dL Desirable 200-240 mg/dL Borderline >240 mg/dL High Risk Eosinophils/100 WBC (Bld) 1.6 % 0-5 [facility] Glucose [Mass/Vol] 88 mg/dL 74-106 [facility] Neutrophils (Bld) [#/Vol] 2.8 10*3/uL 2.0-7.7 [facility] Neutrophils/100 WBC (Bld) 57.7 % 47-70 [facility] Potassium [Moles/Vol] 4.0 mmol/L 3.5-5.1 [facility] Protein [Mass/Vol] 6.5 g/dL 6.4-8.2 [facility] Sodium [Moles/Vol] 140 mmol/L 136-145 [facility] Triglyceride [Mass/Vol] 72 mg/dL <199 [facility] Comment on above: The drugs N-Acetylcy steine and Metamizole may falsely depress this assay.Serum Triglycerides Reference Interval Normal <150 mg/dL Borderline high 150 - 199 mg/dL High 200 - 499 mg/dL Very High > or = 500 mg/dL WBC (Bld) [#/Vol] 4.9 10*3/uL 4.4-11.0 [facility] Blood erythrocytes count (nu mber/volume)Ordered By: Dr. Alvarenga on 06-26-2022 RBC (Bld) [#/Vol] 4.45 10*6/uL 4.2-5.4 [facility] Blood hemoglobin measurement (mass/volume)Ordered By: Dr. Alvarenga on 06-26-2022 Hemoglobin (Bld) [Mass/Vol] 14.1 g/dL 12.0-15.0 [facility] Blood lymphocytes/100 leukoc ytesOrdered By: Dr. Alvarenga on 06-26-2022 Lymphocytes/100 WBC (Bld) 29.2 % 19-41 [facility] Blood monocytes/100 leukocyt esOrdered By: Dr. Alvarenga on 06-26-2022 Monocytes/100 WBC (Bld) 10.3 % 0-10 [facility] Blood platelet mean volumeOr dered By: Dr. Alvarenga on 06-26-2022 Platelet mean volume (Bld) [Entitic vol] 10.2 fL 6.2-12.0 [facility] Determination of erythrocyte mean corpuscular volume (MCV)Ordered By: Dr. Alvarenga on 06-26-2022 MCV (RBC) [Entitic vol] 98.2 fL 81-99 [facility] Hematocrit Auto (Bld) [Volum e fraction]Ordered By: Dr. Alvarenga on 06-26-2022 Hematocrit (Bld) [Volume fraction] 43.7 % 37-47 [facility] INR in Blood by Coagulation assayOrdered By: Dr. Alvarenga on 06-26-2022 INR Coag (Bld) [Relative time] 2.0 {INR} [facility] - Chemistry and C hemistry - challengeOrdered By: Dr. Alvarenga on 06-26-2022 ALP [Catalytic activity/Vol] 180 U/L 45-117 [facility] ALT [Catalytic activity/Vol] 36 U/L 13-56 [facility] CO2 [Moles/Vol] 27.0 mmol/L 21.0-32.0 [facility] Globulin (S) [Mass/Vol] 2.9 g/dL 2.2-4.2 [facility] Urea nitrogen/Creatinine [Mass ratio] 13.0 mg/mg 10-20 [facility] - CoagulationOrde red By: Dr. Alvarenga on 06-26-2022 PT Coag (PPP) [Time] 22.0 s 11.7-14.9 [facility] Laboratory - Hematology and Cell countsOrdered By: Dr. Alvarenga on 06-26-2022 Erythrocyte distribution width (RBC) [Entitic vol] 47.7 fL 35.1-43.9 [facility] Erythrocyte distribution width (RBC) [Ratio] 13.2 % 11.6-14.6 [facility] Immature granulocytes/100 WBC (Bld) 0.400 % 0.0-0.9 [facility] Comment on above: IG% - Immature Granu locytes (promyelocytes, myelocytes and metamyelocytes) > 1% indicates that a LEFT SHIFT is Present. MCH (RBC) [Entitic mass] 31.7 pg 27.0-32.0 [facility] Nucleated RBC/100 WBC (Bld) [Ratio] 0 % 0-5 [facility] MCHC Auto (RBC) [Mass/Vol]Or dered By: Dr. Alvarenga on 06-26-2022 MCHC (RBC) [Mass/Vol] 32.3 g/dL 32-36 [facility] No Panel InformationOrdered By: Dr. Alvarenga on 06-26-2022 Estimated GFR (MDRD) Amer 85 mL/min >60 [facility] Comment on above: GFR Calc Estimated GFR (MDRD) Non-Af Amer 71 mL/min >60 [facility] Comment on above: Non- GFR Calc Vitamin D 25-Hydroxy 33.7 ng/mL [facility] Comment on above: Vitamin D 25(OH) Sta tus Range Deficiency <20 ng/mL (50nmol/L) Insufficiency 20 - 30 ng/mL (50 - 75 nmol/L) Sufficiency 30 - 100 ng/mL (75 - 250 nmol/L) Toxicity >100 ng/mL (>250 nmol/L) Platelets bldOrdered By: Dr. Alvarenga on 06-26-2022 Platelets (Bld) [#/Vol] 246 10*3/uL 150-450 [facility] Serum or plasma albumin darlyn urement (mass/volume)Ordered By: Dr. Alvarenga on 06-26-2022 Albumin [Mass/Vol] 3.6 g/dL 3.2-5.0 [facility] Serum or plasma albumin/glob ulin mass ratioOrdered By: Dr. Alvarenga on 06-26-2022 Albumin/Globulin [Mass ratio] 1.2 {ratio} 0.9-2.4 [facility] Serum or plasma calcium darlyn urement (mass/volume)Ordered By: Dr. Alvarenga on 06-26-2022 Calcium [Mass/Vol] 8.6 mg/dL 8.5-10.1 [facility] Serum or plasma cholesterol in HDL measurement (mass/volume)Ordered By: Dr. Alvarenga on 06-26-2022 Cholesterol in HDL [Mass/Vol] 80 mg/dL >40 [facility] Comment on above: The drugs N-Acetylcy steine and Metamizole may falsely depress this assay. Reference Range HDL <40 mg/dL Low HDL Cholesterol HDL >or= 60 mg/dL High HDL Cholesterol Serum or plasma cholesterol in VLDL measurement (mass/volume)Ordered By: Dr. Alvarenga on 06-26-2022 Cholesterol in VLDL [Mass/Vol] 14 mg/dL 5-40 [facility] Serum or plasma creatinine m easurement (mass/volume)Ordered By: Dr. Alvarenga on 06-26-2022 Creatinine [Mass/Vol] 0.84 mg/dL 0.55-1.02 [facility] Comment on above: The validity of the calculated GFR & GFRAA in patients over 70 years has not been determined. Clinical correlation is essential. Serum or plasma low density lipoprotein (LDL) cholesterol measurement (mass/volume)Ordered By: Dr. Alvarenga on 06-26-2022 Cholesterol in LDL [Mass/Vol] 74 mg/dL 0-130 [facility] Serum or plasma urea nitroge n measurement (mass/volume)Ordered By: Dr. Alvarenga on 06-26-2022 Urea nitrogen [Mass/Vol] 11 mg/dL 7-18 [facility] Thin prep Papanicolaou smear with manual screeningOrdered By: Dr. Alvarenga on 06-26-2022 Thin prep Papanicolaou smear with manual screening 22 U/L 15-37 [facility] Thin prep Papanicolaou smear with manual screening 7 5-15 [facility] - Chemistry and C hemistry - challengeOrdered By: Dr. Alvarenga on 05-07-2022 Free T4 [Mass/Vol] 1.10 ng/dL 0.76-1.46 [facility] No Panel InformationOrdered By: Dr. Alvarenga on 05-07-2022 Free Triiodothyronine (T3) pg/dL 2.0 pg/mL 2.18-3.98 [facility] Thyroid Stimulating Hormone (TSH) 1.23 uIU/mL 0.358-3.74 [facility] - Chemistry and C hemistry - challengeon 03-05-2022 Free T4 [Mass/Vol] 1.13 ng/dL 0.76-1.46 [facility] Work Phone: No Panel Informationon 03-05 Free Triiodothyronine (T3) pg/dL 2.1 pg/mL 2.18-3.98 [facility] Work Phone: Thyroid Stimulating Hormone (TSH) 10.40 uIU/mL 0.358-3.74 [facility] Work Phone: INR in Blood by Coagulation assayon 02-19-2022 INR Coag (Bld) [Relative time] 2.7 {INR} [facility] Work Phone: Laboratory - Coagulationon 0 02-19-2022 PT Coag (PPP) [Time] 28.0 s 11.7-14.9 [facility] Work Phone: Absolute lymphocyte counton 12-24-2021 Lymphocytes Auto (Unsp spec) [#/Vol] 1.08 10*3/uL 0.83-4.51 [facility] Work Phone: Basophil percentageon 2021 Basophils/100 WBC (Bld) 0.4 % 0-1 [facility] Work Phone: Bilirubin [Mass/Vol] 0.70 mg/dL 0.20-1.00 [facility] Work Phone: Comment on above: For patients on eltr ombopag therapy, use of Dimension [place] TBIL is not recommended. Chloride [Moles/Vol] 108 mmol/L 98-107 [facility] Work Phone: Eosinophils/100 WBC (Bld) 0.0 % 0-5 [facility] Work Phone: Glucose [Mass/Vol] 98 mg/dL 74-106 [facility] Work Phone: Neutrophils (Bld) [#/Vol] 6.2 10*3/uL 2.0-7.7 [facility] Work Phone: Neutrophils/100 WBC (Bld) 79.5 % 47-70 [facility] Work Phone: Potassium [Moles/Vol] 3.9 mmol/L 3.5-5.1 [facility] Work Phone: Protein [Mass/Vol] 6.9 g/dL 6.4-8.2 [facility] Work Phone: Sodium [Moles/Vol] 141 mmol/L 136-145 [facility] Work Phone: WBC (Bld) [#/Vol] 7.7 10*3/uL 4.4-11.0 [facility] Work Phone: Blood erythrocytes count (nu mber/volume)on 12-24-2021 RBC (Bld) [#/Vol] 4.55 10*6/uL 4.2-5.4 [facility]: Blood hemoglobin measurement (mass/volume)on 12-24-2021 Hemoglobin (Bld) [Mass/Vol] 14.5 g/dL 12.0-15.0 [facility] Work Phone: Blood lymphocytes/100 leukoc yteson 12-24-2021 Lymphocytes/100 WBC (Bld) 14.0 % 19-41 [facility] Work Phone: Blood monocytes/100 leukocyt eson 12-24-2021 Monocytes/100 WBC (Bld) 5.8 % 0-10 [facility] Work Phone: Blood platelet mean volumeon 12-24-2021 Platelet mean volume (Bld) [Entitic vol] 10.3 fL 6.2-12.0 [facility] Work Phone: Determination of erythrocyte mean corpuscular volume (MCV)on 12-24-2021 MCV (RBC) [Entitic vol] 96.7 fL 81-99 [facility] Work Phone: Hematocrit Auto (Bld) [Volum e fraction]on 12-24-2021 Hematocrit (Bld) [Volume fraction] 44.0 % 37-47 [facility] Work Phone: INR in Blood by Coagulation assayon 12-24-2021 INR Coag (Bld) [Relative time] 2.4 {INR} [facility] Work Phone: Laboratory - Chemistry and C hemistry - challengeon 12-24-2021 ALP [Catalytic activity/Vol] 104 U/L 45-117 [facility] Work Phone: [phone] ALT [Catalytic activity/Vol] 31 U/L 13-56 [facility] Work Phone: [phone] CO2 [Moles/Vol] 25.0 mmol/L 21.0-32.0 [facility] Work Phone: [phone] Free T4 [Mass/Vol] 1.57 ng/dL 0.76-1.46 [facility] Work Phone: [phone] Globulin (S) [Mass/Vol] 3.2 g/dL 2.2-4.2 [facility] Work Phone: [phone] Urea nitrogen/Creatinine [Mass ratio] 13.0 mg/mg 10-20 [facility] Work Phone: Laboratory - Coagulationon 0 12-24-2021 PT Coag (PPP) [Time] 26.0 s 11.7-14.9 [facility] Work [facility]: Laboratory - Hematology and Cell countson 12-24-2021 Erythrocyte distribution width (RBC) [Entitic vol] 49.5 fL 35.1-43.9 [facility] Work Phone: [phone] Erythrocyte distribution width (RBC) [Ratio] 13.8 % 11.6-14.6 [facility] Work Phone: Immature granulocytes/100 WBC (Bld) 0.300 % 0.0-0.9 [facility] Work Phone: Comment on above: IG% - Immature Granu locytes (promyelocytes, myelocytes and metamyelocytes) > 1% indicates that a LEFT SHIFT is Present. MCH (RBC) [Entitic mass] 31.9 pg 27.0-32.0 [facility] Work Phone: [phone] Nucleated RBC/100 WBC (Bld) [Ratio] 0 % 0-5 [facility] Work Phone: [phone] MCHC Auto (RBC) [Mass/Vol]on 12-24-2021 MCHC (RBC) [Mass/Vol] 33.0 g/dL 32-36 [facility] Work Phone: [phone] Panel Informationon 12-24 Estimated GFR (MDRD) Amer 85 mL/min >60 [facility] Work Phone: [phone] Comment on above: GFR Calc Estimated GFR (MDRD) Non-Af Amer 70 mL/min >60 [facility] Work Phone: [phone] Comment on above: Non- GFR Calc Free Triiodothyronine (T3) pg/dL 2.0 pg/mL 2.18-3.98 [facility] Work Phone: [phone] Thyroid Stimulating Hormone (TSH) 0.12 uIU/mL 0.358-3.74 [facility] Work Phone: [phone] Platelets bldon 12-24-2021 Platelets (Bld) [#/Vol] 269 10*3/uL 150-450 [facility] Work Phone: [phone] Serum or plasma albumin darlyn urement (mass/volume)on 12-24-2021 Albumin [Mass/Vol] 3.7 g/dL 3.2-5.0 [facility] Work Phone: [phone] Serum or plasma albumin/glob ulin mass ratioon 12-24-2021 Albumin/Globulin [Mass ratio] 1.2 {ratio} 0.9-2.4 [facility] Work Phone: [phone] Serum or plasma calcium darlyn urement (mass/volume)on 12-24-2021 Calcium [Mass/Vol] 8.9 mg/dL 8.5-10.1 [facility] Work Phone: Serum or plasma creatinine m easurement (mass/volume)on 12-24-2021 Creatinine [Mass/Vol] 0.85 mg/dL 0.55-1.02 [facility] Work Phone: Comment on above: The validity of the calculated GFR & GFRAA in patients over 70 years has not been determined. Clinical correlation is essential. Serum or plasma urea nitroge n measurement (mass/volume)on 12-24-2021 Urea nitrogen [Mass/Vol] 11 mg/dL 7-18 [facility] Work Phone: Thin prep Papanicolaou smear with manual screeningon 12-24-2021 Thin prep Papanicolaou smear with manual screening 21 U/L 15-37 [facility] Work Phone: Thin prep Papanicolaou smear with manual screening 8 5-15 [facility] Work Phone: INR in Blood by Coagulation assayon 10-31-2021 INR Coag (Bld) [Relative time] 2.4 {INR} [facility] Work Phone: Laboratory - Coagulationon 0 10-31-2021 PT Coag (PPP) [Time] 25.5 s 11.7-14.9 [facility] Work Phone: INR in Blood by Coagulation assayon 10-03-2021 INR Coag (Bld) [Relative time] 3.2 {INR} [facility] Work Phone: Laboratory - Coagulationon 0 10-03-2021 PT Coag (PPP) [Time] 32.7 s 11.7-14.9 [facility] Work Phone: Absolute lymphocyte counton 09-05-2021 Lymphocytes Auto (Unsp spec) [#/Vol] 1.10 10*3/uL 0.83-4.51 [facility] Work Phone: Basophil percentageon 2021 Basophils/100 WBC (Bld) 0.3 % 0-1 [facility] Work Phone: Chloride [Moles/Vol] 113 mmol/L 98-107 [facility]: Eosinophils/100 WBC (Bld) 0.1 % 0-5 [facility] Work Phone: Glucose [Mass/Vol] 91 mg/dL 74-106 [facility] Work Phone: Neutrophils (Bld) [#/Vol] 5.9 10*3/uL 2.0-7.7 [facility] Work Phone: Neutrophils/100 WBC (Bld) 77.2 % 47-70 [facility] Work Phone: Potassium [Moles/Vol] 3.9 mmol/L 3.5-5.1 [facility] Work Phone: Sodium [Moles/Vol] 141 mmol/L 136-145 [facility] Work Phone: WBC (Bld) [#/Vol] 7.6 10*3/uL 4.4-11.0 [facility] Work Phone: Blood erythrocytes count (nu mber/volume)on 09-05-2021 RBC (Bld) [#/Vol] 4.01 10*6/uL 4.2-5.4 [facility] Work Phone: Blood hemoglobin measurement (mass/volume)on 09-05-2021 Hemoglobin (Bld) [Mass/Vol] 12.7 g/dL 12.0-15.0 [facility] Work Phone: Blood lymphocytes/100 leukoc yteson 09-05-2021 Lymphocytes/100 WBC (Bld) 14.4 % 19-41 [facility] Work Phone: Blood monocytes/100 leukocyt eson 09-05-2021 Monocytes/100 WBC (Bld) 7.6 % 0-10 [facility] Work Phone: Blood platelet mean volumeon 09-05-2021 Platelet mean volume (Bld) [Entitic vol] 10.6 fL 6.2-12.0 [facility] Work Phone: [phone] Determination of erythrocyte mean corpuscular volume (MCV)on 09-05-2021 MCV (RBC) [Entitic vol] 97.0 fL 81-99 [facility] Work Phone: [phone] Hematocrit Auto (Bld) [Volum e fraction]on 09-05-2021 Hematocrit (Bld) [Volume fraction] 38.9 % 37-47 [facility] Work Phone: [phone] Laboratory - Chemistry and C hemistry - challengeon 09-05-2021 CO2 [Moles/Vol] 25.0 mmol/L 21.0-32.0 [facility] Work Phone: [phone] Urea nitrogen/Creatinine [Mass ratio] 12.7 mg/mg 10-20 [facility] Work Phone: [phone] Laboratory - Hematology and Cell countson 09-05-2021 Erythrocyte distribution width (RBC) [Entitic vol] 47.2 fL 35.1-43.9 [facility] Work Phone: [phone] Erythrocyte distribution width (RBC) [Ratio] 13.2 % 11.6-14.6 [facility] Work Phone: [phone] Immature granulocytes/100 WBC (Bld) 0.400 % 0.0-0.9 [facility] Work Phone: [phone] Comment on above: IG% - Immature Granu locytes (promyelocytes, myelocytes and metamyelocytes) > 1% indicates that a LEFT SHIFT is Present. MCH (RBC) [Entitic mass] 31.7 pg 27.0-32.0 [facility] Work Phone: [phone] Nucleated RBC/100 WBC (Bld) [Ratio] 0 % 0-5 [facility] Work Phone: [phone] MCHC Auto (RBC) [Mass/Vol]on 09-05-2021 MCHC (RBC) [Mass/Vol] 32.6 g/dL 32-36 [facility] Work Phone: [phone] No Panel Informationon 09-05 Estimated Creatinine Clearance Calc 52.10 ml/min [facility] Work Phone: Estimated GFR (MDRD) Amer 93 mL/min >60 [facility] Work Phone: Comment on above: GFR Calc Estimated GFR (MDRD) Non-Af Amer 77 mL/min >60 [facility] Work Phone: Comment on above: Non- GFR Calc Platelets bldon 09-05-2021 Platelets (Bld) [#/Vol] 198 10*3/uL 150-450 [facility] Work Phone: Serum or plasma calcium darlyn urement (mass/volume)on 09-05-2021 Calcium [Mass/Vol] 8.2 mg/dL 8.5-10.1 [facility] Work Phone: Serum or plasma creatinine m easurement (mass/volume)on 09-05-2021 Creatinine [Mass/Vol] 0.79 mg/dL 0.55-1.02 [facility] Work Phone: Comment on above: The validity of the calculated GFR & GFRAA in patients over 70 years has not been determined. Clinical correlation is essential. Serum or plasma urea nitroge n measurement (mass/volume)on 09-05-2021 Urea nitrogen [Mass/Vol] 10 mg/dL 7-18 [facility] Work Phone: Thin prep Papanicolaou smear with manual screeningon 09-05-2021 Thin prep Papanicolaou smear with manual screening 3 5-15 [facility] Work Phone: Laboratory - Coagulationon 0 09-04-2021 INR Coag (Bld) [Relative time] 1.0 {INR} [facility] Work Phone: Comment on above: Critical Value > 4.0 Whole blood prothrombin time on 09-04-2021 PT Coag (Bld) [Time] 12.5 s 11.7-14.9 [facility] Work Phone: INR in Blood by Coagulation assayon 08-21-2021 INR Coag (Bld) [Relative time] 2.3 {INR} [facility] Work Phone: Laboratory - Coagulationon 0 08-21-2021 PT Coag (PPP) [Time] 24.9 s 11.7-14.9 [facility] Work Phone: Laboratory - Coagulationon 0 08-02-2021 INR Coag (Bld) [Relative time] 1.1 {INR} [facility] Work Phone: Comment on above: Critical Value > 4.0 Whole blood prothrombin time on 08-02-2021 PT Coag (Bld) [Time] 13.2 s 11.7-14.9 [facility] Work Phone: Absolute lymphocyte counton 06-22-2021 Lymphocytes Auto (Unsp spec) [#/Vol] 1.25 10*3/uL 0.83-4.51 [facility] Work Phone: Basophil percentageon 2021 Basophils/100 WBC (Bld) 0.9 % 0-1 [facility] Work Phone: Bilirubin [Mass/Vol] 0.70 mg/dL 0.20-1.00 [facility] Work Phone: Comment on above: For patients on eltr ombopag therapy, use of Dimension [place] TBIL is not recommended. Chloride [Moles/Vol] 109 mmol/L 98-107 [facility] Work Phone: Cholesterol [Mass/Vol] 155 mg/dL <200 [facility] Work Phone: Comment on above: <200 mg/dL Desirable 200-240 mg/dL Borderline >240 mg/dL High Risk Eosinophils/100 WBC (Bld) 2.1 % 0-5 [facility] Work Phone: Glucose [Mass/Vol] 90 mg/dL 74-106 [facility] Work Phone: Neutrophils (Bld) [#/Vol] 2.6 10*3/uL 2.0-7.7 [facility] Work Phone: Neutrophils/100 WBC (Bld) 58.9 % 47-70 [facility] Work Phone: [phone] Potassium [Moles/Vol] 3.8 mmol/L 3.5-5.1 [facility] Work Phone: [phone] Protein [Mass/Vol] 6.8 g/dL 6.4-8.2 [facility] Work Phone: [phone] Sodium [Moles/Vol] 141 mmol/L 136-145 [facility] Work Phone: [phone] Triglyceride [Mass/Vol] 96 mg/dL [facility] Work Phone: [phone] Comment on above: The drugs N-Acetylcy steine and Metamizole may falsely depress this assay.Serum Triglycerides Reference Interval Normal <150 mg/dL Borderline high 150 - 199 mg/dL High 200 - 499 mg/dL Very High > or = 500 mg/dL WBC (Bld) [#/Vol] 4.4 10*3/uL 4.4-11.0 [facility] Work Phone: [phone] Blood erythrocytes count (nu mber/volume)on 06-22-2021 RBC (Bld) [#/Vol] 4.68 10*6/uL 4.2-5.4 [facility] Work Phone: [phone] Blood hemoglobin measurement (mass/volume)on 06-22-2021 Hemoglobin (Bld) [Mass/Vol] 15.0 g/dL 12.0-15.0 [facility] Work Phone: [phone] Blood lymphocytes/100 leukoc yteson 06-22-2021 Lymphocytes/100 WBC (Bld) 28.7 % 19-41 [facility] Work Phone: [phone] Blood monocytes/100 leukocyt eson 06-22-2021 Monocytes/100 WBC (Bld) 9.2 % 0-10 [facility] Work Phone: [phone] Blood platelet mean volumeon 06-22-2021 Platelet mean volume (Bld) [Entitic vol] 10.2 fL 6.2-12.0 [facility] Work Phone: Determination of erythrocyte mean corpuscular volume (MCV)on 06-22-2021 MCV (RBC) [Entitic vol] 96.6 fL 81-99 [facility] Work Phone: Hematocrit Auto (Bld) [Volum e fraction]on 06-22-2021 Hematocrit (Bld) [Volume fraction] 45.2 % 37-47 [facility] Work Phone: INR in Blood by Coagulation assayon 06-22-2021 INR Coag (Bld) [Relative time] 2.0 {INR} [facility] Work Phone: Laboratory - Chemistry and C hemistry - challengeon 06-22-2021 ALP [Catalytic activity/Vol] 114 U/L 45-117 [facility] Work Phone: [phone] ALT [Catalytic activity/Vol] 27 U/L 13-56 [facility] Work Phone: [phone] CO2 [Moles/Vol] 26.0 mmol/L 21.0-32.0 [facility] Work Phone: [phone] Free T4 [Mass/Vol] 1.24 ng/dL 0.76-1.46 [facility] Work Phone: [phone] Globulin (S) [Mass/Vol] 3.1 g/dL 2.2-4.2 [facility] Work Phone: [phone] Urea nitrogen/Creatinine [Mass ratio] 14.0 mg/mg 10-20 [facility] Work Phone: [phone] Laboratory - Coagulationon 0 06-22-2021 PT Coag (PPP) [Time] 21.8 s 11.7-14.9 [facility] Work Phone: Laboratory - Hematology and Cell countson 06-22-2021 Erythrocyte distribution width (RBC) [Entitic vol] 47.2 fL 35.1-43.9 [facility] Work Phone: [phone] Erythrocyte distribution width (RBC) [Ratio] 13.2 % 11.6-14.6 [facility] Work Phone: [phone] Immature granulocytes/100 WBC (Bld) 0.200 % 0.0-0.9 [facility] Work Phone: [phone] Comment on above: IG% - Immature Granu locytes (promyelocytes, myelocytes and metamyelocytes) > 1% indicates that a LEFT SHIFT is Present. MCH (RBC) [Entitic mass] 32.1 pg 27.0-32.0 [facility] Work Phone: [phone] Nucleated RBC/100 WBC (Bld) [Ratio] 0 % 0-5 [facility] Work Phone: [phone] MCHC Auto (RBC) [Mass/Vol]on 06-22-2021 MCHC (RBC) [Mass/Vol] 33.2 g/dL 32-36 [facility] Work Phone: No Panel Informationon 06-22 Estimated GFR (MDRD) Amer 84 mL/min >60 [facility] Work Phone: [phone] Comment on above: GFR Calc Estimated GFR (MDRD) Non-Af Amer 70 mL/min >60 [facility] Work Phone: [phone] Comment on above: Non- GFR Calc Free Triiodothyronine (T3) pg/dL 2.7 pg/mL 2.18-3.98 [facility] Work Phone: [phone] Thyroid Stimulating Hormone (TSH) 0.60 uIU/mL 0.358-3.74 [facility] Work Phone: [phone] Platelets bldon 06-22-2021 Platelets (Bld) [#/Vol] 245 10*3/uL 150-450 [facility] Work Phone: [phone] Serum or plasma albumin darlyn urement (mass/volume)on 06-22-2021 Albumin [Mass/Vol] 3.7 g/dL 3.2-5.0 [facility] Work Phone: [phone] Serum or plasma albumin/glob ulin mass ratioon 06-22-2021 Albumin/Globulin [Mass ratio] 1.2 {ratio} 0.9-2.4 [facility] Work Phone: [phone] Serum or plasma calcium darlyn urement (mass/volume)on 06-22-2021 Calcium [Mass/Vol] 8.7 mg/dL 8.5-10.1 [facility] Work Phone: Serum or plasma cholesterol in HDL measurement (mass/volume)on 06-22-2021 Cholesterol in HDL [Mass/Vol] 72 mg/dL [facility] Work Phone: Comment on above: The drugs N-Acetylcy steine and Metamizole may falsely depress this assay. Reference Range HDL <40 mg/dL Low HDL Cholesterol HDL >or= 60 mg/dL High HDL Cholesterol Serum or plasma cholesterol in VLDL measurement (mass/volume)on 06-22-2021 Cholesterol in VLDL [Mass/Vol] 19 mg/dL 5-40 [facility] Work Phone: Serum or plasma creatinine m easurement (mass/volume)on 06-22-2021 Creatinine [Mass/Vol] 0.86 mg/dL 0.55-1.02 [facility] Work Phone: Comment on above: The validity of the calculated GFR & GFRAA in patients over 70 years has not been determined. Clinical correlation is essential. Serum or plasma low density lipoprotein (LDL) cholesterol measurement (mass/volume)on 06-22-2021 Cholesterol in LDL [Mass/Vol] 64 mg/dL 0-130 [facility] Work Phone: Serum or plasma urea nitroge n measurement (mass/volume)on 06-22-2021 Urea nitrogen [Mass/Vol] 12 mg/dL 7-18 [facility] Work Phone: Thin prep Papanicolaou smear with manual screeningon 06-22-2021 Thin prep Papanicolaou smear with manual screening 22 U/L 15-37 [facility] Work Phone: Thin prep Papanicolaou smear with manual screening 6 5-15 [facility] Work Phone: Laboratory - Microbiology an d Antimicrobial susceptibilityon 06-05-2021 SARS-CoV-2 (COVID-19) RNA GINO+probe Ql (Unsp spec) Not detected Not Detect [facility] Work Phone: Comment on above: Normal Reference Ran ge: Not DetectedMethod:(RT-PCR) real-time reverse transcriptase PCRLuminex CHERRY Instrument*The Food and Drug Administration (FDA) has issued an Emergency Use Authorization (EAU) for the CHERRY SARS-CoV-2 Assay for the rapid detection of the virus that causes COVID-19. This test has been validated, but the FDAs independent review of this validation is pending.*Negative results do not preclude infection and should not be used as the sole basis for treatment or patient management. Optimum specimen types and timing for peak viral levels during infections caused by SARS-CoV-2 have not been determined. Collection of multiple specimens from the same patient may be necessary to detect the virus. The possibility of a false negative result should be considered if the patient has clinical presentation or has had recent exposure. EMERGENCY REPORTon 07-15-201 9 EMERGENCY REPORT [facility] EMERGENCY ROOM REPORT NAME ACCOUNT SEX AGE ADMIT DISCHARGE PT MED. RECORD# NUMBER DATE DATE TYPE ANUSHA VIDAL [id number] F 68 12/01/18 12/01/18 3 L [id number] ROOM: ER DATE OF : 1950 DICTATING PHYSICIAN: Ryanne Johnson Date seen is December 01, 2018 at 1340 hours. HISTORY OF PRESENT ILLNESS: This is a 68-year-old female complaining of a laceration to the volar aspect of her left middle ring finger. This occurred while she was pulling weeds today and felt something cut her finger. She was not wearing gloves at the time. Her last tetanus was greater than 5 years ago. She is on Coumadin for Factor V deficiency. She denies any pain to the site at this time. She said earlier it had been throbbing and she rated that pain as a 2, but she is able to move her fingers well and she denies any numbness or tingling. PAST MEDICAL HISTORY: The patient has a past medical history of hypertension and Factor V deficiency, hypothyroidism. She is on Coumadin for the Factor V deficiency because she has had 2 pulmonary embolisms in the past. PAST SURGICAL HISTORY: Include a cholecystectomy, orthopedic surgery to her right hand and previous thyroid surgery. ALLERGIES: She is allergic to CT contrast dye. SOCIAL HISTORY: She is not a smoker. Denies any use of alcohol or illicit drugs. She lives at home with family. REVIEW OF SYSTEMS: She denies any chest pain, shortness of breath, cough, sputum, wheezing, abdominal pain, nausea, vomiting, diarrhea, constipation, melena, hematochezia, headache, numbness, unsteady gait, weakness, neck or back pain. She does complain of a laceration to the volar aspect of her left ring finger. Further review of systems is negative. PHYSICAL EXAMINATION: Vital signs: Blood pressure 135/78, pulse 69, respiration rate 16, pulse ox 98%, weight 137 pounds. The patient is alert and oriented x3. She presently appears in on acute distress. She is pleasant and cooperative. HEENT: Head appears atraumatic. Pupils are equal and reactive to light. Red reflex intact bilaterally. Extraocular muscles are intact. No conjunctival injection. No scleral icterus or lid edema. Nose: No rhinorrhea or epistaxis. Mouth: Mucous membranes are moist. Teeth intact. Neck is supple. Trachea is midline. No JVD or lymphadenopathy. No posterior cervical tenderness. No nuchal rigidity. Lungs: Clear to auscultation bilaterally. No adventitious Page 1 of 2 BEGLY, ANUSHA L Emergency Room Report sounds are noted. No accessory muscle use noted. CV: Heart rate and rhythm are regular without murmur. Abdomen is soft and nontender with normoactive bowel sounds x4 quadrants. No guarding or rigidity. No rebound. No palpable abdominal masses. No hepatosplenomegaly. Extremities: I do note a 1 cm linear laceration to the volar aspect of the left ring finger over the middle phalanx region. The wound was explored. There is no tendon or bone involvement. The laceration just extends down into the subcutaneous fat. No foreign body. She is able to flex and extend all digits of the left hand well against resistance including the injured digit. She has good sensation to light touch all digits of the left hand. Capillary refill is less than 2 seconds. No bony deformity. The patient is alert and oriented x3. She appears in no acute distress. No motor or sensory deficits are noted. Normal speech. EMERGENCY DEPARTMENT COURSE AND TREATMENT: The wound site was cleansed with dilute Betadine solution local anesthesia with 1% plain lidocaine. Good local anesthesia was obtained. The wound was then explored. No bone or tendon involvement. No foreign body. The wound was then copiously irrigated with sterile normal saline and closed with a total of 3 simple interrupted sutures of 3-0 Vicryl. Good approximation of the wound edges was achieved, and the patient tolerated this procedure well. I did place a pressure dressing to the site with some 4x4 gauze that was folded and then covered with Coban for a pressure dressing. DIAGNOSIS: 1 cm linear laceration volar aspect of the left ring finger - repaired. PLAN/DISPOSITION: I advised the patient to keep the wound site clean and dry, change the dressing daily, and those sutures will come out on their own and they are absorbable. She is aware of this. I did place her on Keflex 500 mg 1 p.o. t.i.d., dispensed #21 with no refill. The patient was discharged in a clinically stable condition. Nursing notes reviewed. She is to follow up with her primary care physician, Dr. Alvarenga, in [place], [place] in 2 to 3 days for a wound recheck. If any problems, return here to the emergency department. Dictated By: Ryanne Johnson DO 12/01/18 16:03 JOB #: [id number] Transcribed By: naman 12/02/18 10:44 Electronically signed by: E-Sign: Dr. Ryanne Johnson D.O. 12/14/18 04:29 Page 2 of 2 ERNESTINEMICHAELANUSHA Emergency Room Report Normal [facility] PROGRESSon 11-02-2018 Protein mass conc HNO ID: [id number] Author: Myah Rosario (Pa) Service: ? Author Type: Physician Pallet Stone Inserter Type: Progress Notes Filed: 11/02/2018 3:29 PM Note Text: FOLLOW UP VISIT - ENDOSCOPY NAME: Anusha Goncalves Young CLINIC NO.: [id number] DATE OF SERVICE: 10/23/2018 : 1950 REFERRING PHYSICIAN: Adelina Alvarenga DO Anusha is a patient I am following for lower abdominal pain, history of colon polyps and stomach pain. Dr. Royal performed upper and lower endoscopy on 10/16/18. The patient was found to have a normal colon, gastritis, gastric polyps and mildly severe reflux esophagitis. Pathology demonstrated: FINAL DIAGNOSIS 1. Jejunum, biopsy (A) - Small bowel mucosa with no diagnostic alteration. ? 2. Antrum, biopsy (B) - Antral mucosa with no diagnostic alteration. ? ? 3. Fundic gland polyp, biopsy (C) - Fragments of fundic gland polyp with patchy reactive foveolar hyperplasia. - Negative for dysplasia. ? 4. Esophagogastric junction, biopsy (D) - Squamous mucosa with reactive changes; no evidence of intestinal metaplasia or dysplasia. TP/dss 10/19/2018 The patient notes some continued upper abdominal discomfort as well as some dysphagia. She has been on a PPI long-term and notes this does not seem to be helping much anymore. VITALS: Blood pressure 142/70, pulse 64, weight 64 kg (141 lb). General: patient is alert, cooperative, pleasant and in no acute distress On examination, the abdomen is benign. Assessment IMPRESSION: history of colon polyps, gastritis, esophagitis-symptomatic despite PPI PLAN: The operative findings and pathology report were reviewed with the patient, and the patient has had the opportunity to ask questions and have questions answered. -Trial of carafate. Discussed with patient that warfarin should be administered at least 2 hours before or 6 hours after the carafate to avoid interaction -Dietary and lifestyle modifications as discussed Call if symptoms worsen or persist despite above measures If the patient notes any problems or changes in bowel function, the patient should contact me immediately. Otherwise Dr. Royal recommends follow up endoscopy in 5 years. HM updated and recall letter generated. Patient verbalized understanding of all above and agreed with the plan Diagnoses: (K21.0) GERD with esophagitis (primary encounter diagnosis) (K29.60) Other gastritis without bleeding (Z86.010) History of colonic polyps I spent 20 minutes in the visit, with more than 50% of the total [id number] time of the visit in counseling / coordination of care. ____ Myah Rosario PA-C Normal [facility] CNOVon 10-23-2018 CNOV Office Visit (GENSWS ) ANUSHA VIDAL ([id number]) 1950 F Date Time Provider Department 10/23/18 4:00 PM MYAH ROSARIO (PA) During your visit today, we recorded the following information about you: Pulse Blood pressure Weight 64/minute 142/70 64 kg Myah Rosario PA-C 10/23/2018 4:13 PM Signed -Trial of carafate. Note that your warfarin should be administered at least 2 hours before or 6 hours after the carafate to avoid interaction The following instructions are important for you related to your office visit today with the [facility]. INSTRUCTIONS FOLLOWING A NORMAL COLONOSCOPY W/ PERSONAL HISTORY OF POLYPS 5YR I discussed with you the findings of your colonoscopy. Since there were no worrisome abnormalities, I recommend you undergo repeat endoscopic screening every 5 years due to your history of colon polyps. If you note bleeding, change in bowel habits, or other suspicious colon related symptoms before that time, those symptoms should be evaluated as necessary. and INSTRUCTIONS FOR PEPTIC ULCER DISEASE - ESOPHAGITIS I discussed with you the findings of your upper endoscopy. Your upper endoscopy demonstrated esophagitis Esophagitis may be a form of peptic irritation, with acid moving from the stomach to the esophagus (gastroesophageal reflux) Factors that increase acid production include smoking and stress. If you smoke, stopping smoking will often cure these issues without needing other medications. Over the counter medications including antiacids and acid reducing medications including H2 blockers (Zantac and the like) and proton pump inhibitors (prilosec, prevacid and the like) neutralize or prevent acid production. Prescription strength proton pump inhibitors (PPIs) may be necessary if your symptoms persist. Carafate may be added to PPI treatment in refractory cases. Avoiding smoking, alcohol and antiinflammatory medications are important in the successful treatment of reflux esophagitis and peptic diseases. Other factors that contribute to GERD and esophagitis are being overweight, eating large meals before laying down and certain foods. Weight loss will help improve many GERD complaints. Remaining upright after eating large meals and having a small supper will also help symptoms. Avoiding food that contribute to reflux - chocolate, caffeine, cheddar cheese may also help. Follow up upper endoscopy may be recommended to assure healing of the esophagus. New or worsening symptoms such are epigastric pain, burning, difficulty swallowing or food sticking should be relayed to your physician. Feeling full early after eating, or black, tarry, foul smelling stools are also worrisome. If you have any difficulties or concerns, you should contact our office immediately. If you note any additional difficulties, questions, or concerns, you should contact our office immediately @ [phone] and ask to be transferred to the General Surgery department. Myah Rosario PA-C 11/02/2018 3:29 PM Signed FOLLOW UP VISIT - ENDOSCOPY NAME: Anusha Goncalves [facility] NO.: [id number] DATE OF SERVICE: 10/23/2018 : 1950 REFERRING PHYSICIAN: Adelina Alvarenga DO Anusha is a patient I am following for lower abdominal pain, history of colon polyps and stomach pain. Dr. Royal performed upper and lower endoscopy on 10/16/18. The patient was found to have a normal colon, gastritis, gastric polyps and mildly severe reflux esophagitis. Pathology demonstrated: FINAL DIAGNOSIS 1. Jejunum, biopsy (A) - Small bowel mucosa with no diagnostic alteration. ? 2. Antrum, biopsy (B) - Antral mucosa with no diagnostic alteration. ? ? 3. Fundic gland polyp, biopsy (C) - Fragments of fundic gland polyp with patchy reactive foveolar hyperplasia. - Negative for dysplasia. ? 4. Esophagogastric junction, biopsy (D) - Squamous mucosa with reactive changes; no evidence of intestinal metaplasia or dysplasia. TP/dss 10/19/2018 The patient notes some continued upper abdominal discomfort as well as some dysphagia. She has been on a PPI long-term and notes this does not seem to be helping much anymore. VITALS: Blood pressure 142/70, pulse 64, weight 64 kg (141 lb). General: patient is alert, cooperative, pleasant and in no acute distress On examination, the abdomen is benign. Assessment IMPRESSION: history of colon polyps, gastritis, esophagitis-symptomatic despite PPI PLAN: The operative findings and pathology report were reviewed with the patient, and the patient has had the opportunity to ask questions and have questions answered. -Trial of carafate. Discussed with patient that warfarin should be administered at least 2 hours before or 6 hours after the carafate to avoid interaction -Dietary and lifestyle modifications as discussed Call if symptoms worsen or persist despite above measures If the patient notes any problems or changes in bowel function, the patient should contact me immediately. Otherwise Dr. Royal recommends follow up endoscopy in 5 years. updated and recall letter generated. Patient verbalized understanding of all above and agreed with the plan Diagnoses: (K21.0) GERD with esophagitis (primary encounter diagnosis) (K29.60) Other gastritis without bleeding (Z86.010) History of colonic polyps I spent 20 minutes in the visit, with more than 50% of the total [id number] time of the visit in counseling / coordination of care. ____ Myah Rosario PA-C Referring Provider: WILL ROYAL [[id number]] Allergies As of Date: 10/23/2018 Noted Allergy Reaction CONTRAST DYE 09/30/2006 4 - Hives LEVAQUIN (LEVOFLOXACIN) 10/14/2014 14 - Other: See Comments Comments: Abd pain NAPROXEN 03/11/2005 8 - GI Upset Date Reviewed: 10/23/2018 Reviewed by: Jennifer Vaughn LPN - Fully Assessed Reason for Visit: Post Op [174] Primary Visit Diagnosis:GERD with esophagitis [K21.0] Other Visit Diagnoses:Other gastritis without bleeding [K29.60] History of colonic polyps [Z86.010] Order(s):sucralfate (CARAFATE) 1 gram tabletTake 1 tablet by mouth twice daily as needed.Disp: 28 tabletRfl: 0 Prescriptions as of 10/23/2018 Sig: SUCRALFATE 1 GRAM TABLET Take 1 tablet by mouth twice * MULTI-VITAMIN ORAL Take by mouth. LEVOTHYROXINE 75 MCG TABLET Take 75 mcg by mouth once mateo* ATENOLOL 25 MG TABLET Take 25 mg by mouth once betty* SIMVASTATIN 80 MG TABLET Take 0.5 tablets by mouth onc* * TIZANIDINE 4 MG CAPSULE Take 1 capsule by mouth three* * HYDROCODONE 5 MG-ACETAMINOPHE* Take 1 tablet by mouth every * * WARFARIN 3 MG TABLET once daily. * PRILOSEC 40 MG CAPSULE,DELAYE* Take one(1) capsule daily. Problem List As Of Date 10/23/2018 Noted Resolved PERS HX COLONIC POLYPS [Z86.010] More... 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 Note that your warfarin should be administered at least 2 hours before or 6 hours after the carafate to avoid interaction The following instructions are important for you related to your office visit today with the [facility] Surgeons. INSTRUCTIONS FOLLOWING A NORMAL COLONOSCOPY W/ PERSONAL HISTORY OF POLYPS 5YR I discussed with you the findings of your colonoscopy. Since there were no worrisome abnormalities, I recommend you undergo repeat endoscopic screening every 5 years due to your history of colon polyps. If you note bleeding, change in bowel habits, or other suspicious colon related symptoms before that time, those symptoms should be evaluated as necessary. and INSTRUCTIONS FOR PEPTIC ULCER DISEASE - ESOPHAGITIS I discussed with you the findings of your upper endoscopy. Your upper endoscopy demonstrated esophagitis Esophagitis may be a form of peptic irritation, with acid moving from the stomach to the esophagus (gastroesophageal reflux) Factors that increase acid production include smoking and stress. If you smoke, stopping smoking will often cure these issues without needing other medications. Over the counter medications including antiacids and acid reducing medications including H2 blockers (Zantac and the like) and proton pump inhibitors (prilosec, prevacid and the like) neutralize or prevent acid production. Prescription strength proton pump inhibitors (PPIs) may be necessary if your symptoms persist. Carafate may be added to PPI treatment in refractory cases. Avoiding smoking, alcohol and antiinflammatory medications are important in the successful treatment of reflux esophagitis and peptic diseases. Other factors that contribute to GERD and esophagitis are being overweight, eating large meals before laying down and certain foods. Weight loss will help improve many GERD complaints. Remaining upright after eating large meals and having a small supper will also help symptoms. Avoiding food that contribute to reflux - chocolate, caffeine, cheddar cheese may also help. Follow up upper endoscopy may be recommended to assure healing of the esophagus. New or worsening symptoms such are epigastric pain, burning, difficulty swallowing or food sticking should be relayed to your physician. Feeling full early after eating, or black, tarry, foul smelling stools are also worrisome. If you have any difficulties or concerns, you should contact our office immediately. If you note any additional difficulties, questions, or concerns, you should contact our office immediately @ [phone] and ask to be transferred to the General Surgery department. Prescriptions ordered this encounter Disp Refills Start End SUCRALFATE 1 GRAM TABLET 28 t* 0 10/23/2018 Route: ORAL Sig: Take 1 tablet by mouth twice daily as needed. Encounter Status:Closed by MYAH ROSARIO PA-C on 11/02/18 [facility] HISTORY PHYSICALon HISTORY PHYSICAL HNO ID: [id number] Author: Will Royal Service: General Surgery Author Type: Physician Type: HANDP Filed: 10/16/2018 7:25 AM Note Text: HISTORY AND PHYSICAL ? Anusha Vidal 1950 ? REFERRING PHYSICIAN: Adelina Alvarenga DO ? CHIEF COMPLAINT: Consult (Consult Colonoscopy) ? HPI: The patient is a 68 year old female referred for endoscopy. Anusha notes a history of multiple adenomatous colon polyps, notes has had to have very frequent surveillance endoscopies in the past, most performed by Dr. Royal with records in [facility] reviewed. In July 2016 she had endoscopy performed by Dr. Sheikh, those records are reviewed. She had several adenomatous polyps removed at that time and 2 year follow up was recommended. ? Patient NOTES both mid and lower intermittent abdominal discomfort. Notes pain in stomach somewhat alleviated with holding pressure against her abdomen, sometimes made worse with eating and drinking. ? Patient denies any change in bowel habits, weight changes, blood in stools, or black tarry stools. Denies family history of colon issues. ? Patient's past medical history is significant for several strokes and mini-strokes in the past, bicuspid aortic valve, COPD, diaphragmatic hernia, DVT, factor V Leiden, thyroid cancer. Patient is maintained on warfarin. She follows with Dr. Alvarenga for her chronic medical conditions. ? ? PAST?MEDICAL?HISTORY PAST MEDICAL HISTORY Diagnosis Date - Acute gastritis ? - Arrhythmia ? - Benign neoplasm of colon ? - Benign neoplasm of colon ? - Benign neoplasm of stomach ? - Bicuspid aortic valve ? - Chronic obstructive pulmonary disease (COPD) (HCC) ? - Diaphragmatic hernia without mention of obstruction or gangrene ? - Duodenitis without mention of hemorrhage ? - Duodenitis without mention of hemorrhage ? - DVT (deep venous thrombosis) (HCC) 12/2007 ? Right Lower leg - DVT (deep venous thrombosis) (HCC) 2010 - Factor V Leiden (HCC) ? - Gallbladder sludge 11/04/13 - Mini stroke (HCC) 2010 - Personal history of colonic polyps ? ? Colon polyps - Postmenopausal bleeding ? ? Postmenop. bleeding - RUQ pain 11/04/13 - Stroke (HCC) ? ? ? PAST?SURGICAL?HISTORY PAST SURGICAL HISTORY Procedure Laterality Date - ; THYROIDECTOMY TOTAL OR COMPLETE ? 2009 - COLONOSCOP W/ OR W/O BRSH SPEC ? 11/22/2005 ? Colonoscopy - COLONOSCOP W/ OR W/O BRSH SPEC ? 12/15/06 - COLONOSCOP W/ OR W/O BRSH SPEC ? 12/27/2011 ? Normal - 5 yr follow up - prior polyps - COLONOSCOPY ? 2016 ? by Dr Yoselin Sheikh - COLONS W/REM POLYP HT BX ? ? SMALL POLYPS TRANSVERSE - EGD W/O BRSH SPECIMEN W/BX ? 12/15/06 - EGD W/O BRSH SPECIMEN W/BX ? ? GASTRIC POLYPS, SMALL HIATAL HERNIA - EGD W/O BRSH SPECIMEN W/BX ? 12/27/2011 ? small to mod hiatal hernia, duodenitis - mild - EGD W/O BRSH SPECIMEN W/BX ? 10/25/14 ? small hiatal hernia, - EGD W/O OR W/BRUSH/WASH ? 11/22/2005 ? EGD - FISSURE;SPHINCTEROTOMY/ ANAL ? 04/15/2005 ? For anal Fissures - LAPAROSCOPIC CHOLEYCYSTECTOMY ? 11/04/13 - LEFT HEART CATH,PERCUTANEOUS ? 12/2007 ? ? ? CURRENT?MEDICATIONS ? Current Outpatient Medications: MULTI-VITAMIN ORAL Take by mouth. levothyroxine (LEVOXYL) 75 mcg tablet Take 75 mcg by mouth once daily. simvastatin 80 mg tablet Take 0.5 tablets by mouth once daily. Tizanidine HCl 4 mg capsule Take 1 capsule by mouth three times daily. acetaminophen-hydrocodo ne 5-500 mg tablet Take 1 tablet by mouth every 4 hours as needed. warfarin (COUMADIN) 3 mg tablet once daily. omeprazole(PRILOSEC 40 MG CAP) Take one(1) capsule daily. atenolol 25 mg tablet Take 25 mg by mouth once daily. I tab in AM and 1/2 tab at night hyoscyamine sublingual 0.125 mg Subl Dissolve 1 tablet under the tongue three times daily. ramipril(ALTACE 5 MG CAP) Take one(1) capsule daily. ? No current facility-administered medications for this visit. ? ALLERGIES: Contrast Dye; Levaquin [Levofloxacin]; Naproxen ? PERSONAL HISTORY: SOCIAL?HISTORY Social History Socioeconomic History Marital status: Spouse name: Not on file Number of children: Not on file Years of education: Not on file Highest education level: Not on file Social Needs Financial resource strain: Not on file Food insecurity - worry: Not on file Food insecurity - inability: Not on file Transportation needs - medical: Not on file Transportation needs - non-medical: Not on file Occupational History Not on file Tobacco Use Smoking status: Never Smoker Substance and Sexual Activity Alcohol use: No Drug use: No Sexual activity: Yes Partners: Male Other Topics Concerns: Not on file Social History Narrative Not on file ? FAMILY HISTORY: FAMILY?HISTORY FAMILY HISTORY Problem Relation Age of Onset - Diabetes Mother ? - Hypertension Mother ? - Stroke Father ? ? Heavy smoker ? REVIEW OF SYSTEMS GENERAL: No weight loss, malaise or fevers HEENT: Negative for frequent or significant headaches, No changes in hearing or vision, no nose bleeds or other nasal problems NECK: Negative for lumps, goiter, pain and significant neck swelling RESPIRATORY: Negative for cough, hemoptysis, wheezing, COPD, dyspnea or shortness of breath CARDIOVASCULAR: Negative for chest pain, leg swelling, hypertension, CHF or palpitations GI: See HPI SKIN: Negative for lesions, rash, and itching HEMATOLOGY/LYMPHOLOGY: Negative for prolonged bleeding, bruising easily or swollen nodes ENDOCRINE: Negative for cold or heat intolerance, polyuria, polydipsia and goiter ? PHYSICAL EXAMINATION: ? General: The patient is 68 year old female, well nourished, well hydrated in no acute distress. The patient is oriented to time, place, and person. ? VITALS: Blood pressure 138/82, pulse 77, temperature 36.7 ?C (98.1 ?F), height 151.1 cm (4' 11.5), weight 63.5 kg (140 lb), SpO2 97 %. Body mass index is 27.8 kg/m?. ? HEENT: Normal cephalic, ataumatic, pupils are equally round, sclera are anicteric, mucous membranes are moist, oropharynx is clear. Neck has no masses, asymmetry or lymphadenopathy. ? Respiratory: Clear to auscultation and percussion. Normal respiratory excursion and pattern. ? Cardiac: Examination is regular rate and rhythm. Normal S1/S2 ? Abdominal exam: Soft, nontender, with no palpable masses. No hepatosplenomegaly. No palpable hernias. ? Extremities: no clubbing, cyanosis or edema. No adenopathy. ? LABORATORY VALUES: As Noted ? RADIOLOGIC STUDIES: As Noted ? Assessment IMPRESSION: generalized abdominal discomfort, history of multiple adenomatous colon polyps. Recommend upper and lower endoscopy ? PLAN: I have reviewed my findings with the surgeon. Will plan for upper and lower endoscopy. We discussed the risks and benefits of the planned endoscopy. I have informed the patient that complications can occur including failure to complete the endoscopy and perforation. The patient had the opportunity to ask questions concerning the planned endoscopy. My staff has also explained the procedure to the patient in understandable terms and has given the patient printed material concerning the procedure. The patient freely consents to surgery. ? I plan to use Golytely bowel preparation ? Diagnoses: (R10.30) Lower abdominal pain (primary encounter diagnosis) (Z86.010) History of colonic polyps (R10.9) Stomach pain ? ? Myah Rosario PA-C [facility] NURSING PROGon 10-16-2018 Protein mass conc HNO ID: [id number] Author: Ceci AbadRn) LISA Valdes Service: ? Author Type: Registered Nurse Type: Nursing Progress Note Filed: 10/16/2018 9:27 AM Note Text: Patient did not experience a fall prior to discharge. Patient did not experience a burn prior to discharge. Ceci Valdes RN [facility] Protein mass conc HNO ID: [id number] Author: Ceci Valdes RN Service: ? Author Type: Registered Nurse Type: Nursing Progress Note Filed: 10/16/2018 9:27 AM Note Text: Dr. Royal at bedside to review procedure and recommendations. Ceci Valdes RN [facility] Protein mass conc HNO ID: [id number] Author: Ceci Valdes RN Service: ? Author Type: Registered Nurse Type: Nursing Progress Note Filed: 10/16/2018 8:08 AM Note Text: Arrived in phase II via cart. Left lateral position. Sedated, but responds to verbal stimuli. Color normal; skin warm and dry. Respirations wnl and unlabored. Abdomen soft and with + bowel sounds in quads X 4. Patient resting comfortably. Family at bedside. Ceci Valdes RN [facility] Protein mass conc HNO ID: [id number] Author: Bety Sanchez RN Service: Nursing Author Type: Registered Nurse Type: Nursing Progress Note Filed: 10/16/2018 8:01 AM Note Text: Patient did not experience a fall within the Intraoperative area. Patient did not experience a burn within the Intraoperative area. Bety Sanchez RN [facility] Protein mass conc HNO ID: [id number] Author: Ceci Valdes RN Service: ? Author Type: Registered Nurse Type: Nursing Progress Note Filed: 10/16/2018 7:20 AM Note Text: [facility] PRE-OP NURSING HAND OFF NOTE SBAR Hand off given to Bety Sanchez RN. Hand off was communicated verbally and at the patient's bedside and all questions were answered. FALLS/MORRIS Patient did not experience a fall within the Preoperative area. Patient did not experience a burn within the Preoperative area. Ceci Valdes RN [facility] PT EDon 10-16-2018 PT ED HNO ID: [id number] Author: Ceci Valdes RN Service: ? Author Type: Registered Nurse Type: Patient Education Filed: 10/16/2018 9:26 AM Note Text: POST OP LEARNING RESPONSE INSTRUCTION PROVIDED TO: Patient and family member METHOD OF INSTRUCTION: Individual instruction Written instruction - handouts Verbal instruction PATIENT / FAMILY RESPONSE: Information received as demonstrated by interest and questions FOLLOW-UP PLAN: Follow up phone call. Contact information given. SUPPLEMENTAL MATERIAL: Procedure discharge instructions REFERRAL (RECOMMENDATION): None Electronically Signed By: Ceci Valdes RN In Department: AMBULATORY SURGERY [facility] PT ED HNO ID: [id number] Author: Ceci AbadRn) LISA Valdes Service: ? Author Type: Registered Nurse Type: Patient Education Filed: 10/16/2018 7:06 AM Note Text: Discharge Instructions were reviewed pre-operatively with the patient and patient's spouse. All questions and concerns were addressed. Ceci Valdes RN PRE OP LEARNING ASSESSMENT PROCEDURE/SURGERY: GI PROCEDURES: Colonoscopy and EGD READINESS TO LEARN COGNITIVE ABILITY: Alert and oriented MOTIVATION TO LEARN: Interested FAMILY SUPPORT: High - Very involved in pt care PATIENT LEARNS BEST BY: Multiple Methods FACTORS AFFECTING LEARNING: None PHYSICAL LIMITATIONS AFFECTING LEARNING: None Electronically Signed By: Ceci Valdes RN In Department: AMBULATORY SURGERY [facility] SURGICAL PATHOLOGYon 019 SURGICAL PATHOLOGY Specimen originated from [facility] Specimen #: [id number] Submitting Physician: WILL ROYAL ([id number]) FINAL DIAGNOSIS 1. Jejunum, biopsy (A) - Small bowel mucosa with no diagnostic alteration. 2. Antrum, biopsy (B) - Antral mucosa with no diagnostic alteration. 3. Fundic gland polyp, biopsy (C) - Fragments of fundic gland polyp with patchy reactive foveolar hyperplasia. - Negative for dysplasia. 4. Esophagogastric junction, biopsy (D) - Squamous mucosa with reactive changes; no evidence of intestinal metaplasia or dysplasia. TP/dss 10/19/2018 Jt Salazar M.D. (Electronic Signature) SPECIMEN SUBMITTED A: JEJUNUM, BIOPSY B: ANTRAL BIOPSY H/H C: FUNDIC GLAND POLYPS, BIOPSY D: ESOPHAGOGASTRIC JUNCTION, BIOPSY CLINICAL DATA R10.9, Z86.010 GROSS DESCRIPTION A. Received in formalin are two pieces of price, soft tissue aggregating to 0.6 x 0.2 x 0.2 cm. Totally submitted in one cassette. B. Received in formalin is one piece of price, soft tissue measuring 0.7 x 0.2 x 0.1 cm. Totally submitted in one cassette. C. Received in formalin are multiple pieces of price, soft tissue aggregating to 1.0 x 0.2 x 0.2 cm. Totally submitted in one cassette. D. Received in formalin is one piece of price-white, soft tissue measuring 0.4 x 0.2 x <0.1 cm. Totally submitted in one cassette. Gross examination performed at [facility], [address] [place] [address] FFS 10/17/2018 2:20:59 AM Date of Report: 10/19/2018 Date of Procedure: 10/16/2018 Date of Receipt: 10/16/2018 Submitted by: WILL ROYAL ([id number]) [facility] interpretation performed at [place] [address]. CLIA Number: [id number] [facility] PROGRESSon 10-02-2018 Protein mass conc HNO ID: [id number] Author: Myah Rosario (Pa) Service: ? Author Type: Physician Pallet Stone Inserter Type: Progress Notes Filed: 10/02/2018 2:21 AM Note Text: HISTORY AND PHYSICAL Anusha Vidal 1950 REFERRING PHYSICIAN: Adelina Alvarenga DO CHIEF COMPLAINT: Consult (Consult Colonoscopy) HPI: The patient is a 68 year old female referred for endoscopy. Anusha notes a history of multiple adenomatous colon polyps, notes has had to have very frequent surveillance endoscopies in the past, most performed by Dr. Royal with records in [facility] reviewed. In July 2016 she had endoscopy performed by Dr. Sheikh, those records are reviewed. She had several adenomatous polyps removed at that time and 2 year follow up was recommended. Patient NOTES both mid and lower intermittent abdominal discomfort. Notes pain in stomach somewhat alleviated with holding pressure against her abdomen, sometimes made worse with eating and drinking. Patient denies any change in bowel habits, weight changes, blood in stools, or black tarry stools. Denies family history of colon issues. Patient's past medical history is significant for several strokes and mini-strokes in the past, bicuspid aortic valve, COPD, diaphragmatic hernia, DVT, factor V Leiden, thyroid cancer. Patient is maintained on warfarin. She follows with Dr. Alvarenga for her chronic medical conditions. PAST MEDICAL HISTORY Diagnosis Date - Acute gastritis - Arrhythmia - Benign neoplasm of colon - Benign neoplasm of colon - Benign neoplasm of stomach - Bicuspid aortic valve - Chronic obstructive pulmonary disease (COPD) (HCC) - Diaphragmatic hernia without mention of obstruction or gangrene - Duodenitis without mention of hemorrhage - Duodenitis without mention of hemorrhage - DVT (deep venous thrombosis) (HCC) 12/2007 Right Lower leg - DVT (deep venous thrombosis) (HCC) 2010 - Factor V Leiden (HCC) - Gallbladder sludge 11/04/13 - Mini stroke (HCC) 2010 - Personal history of colonic polyps Colon polyps - Postmenopausal bleeding Postmenop. bleeding - RUQ pain 11/04/13 - Stroke (HCC) PAST SURGICAL HISTORY Procedure Laterality Date - ; THYROIDECTOMY TOTAL OR COMPLETE 2009 - COLONOSCOP W/ OR W/O BRSH SPEC 11/22/2005 Colonoscopy - COLONOSCOP W/ OR W/O BRSH SPEC 12/15/06 - COLONOSCOP W/ OR W/O BRSH SPEC 12/27/2011 Normal - 5 yr follow up - prior polyps - COLONOSCOPY [address] Yoselin Sheikh - COLONS W/REM POLYP HT BX SMALL POLYPS TRANSVERSE - EGD W/O BRSH SPECIMEN W/BX 12/15/06 - EGD W/O BRSH SPECIMEN W/BX GASTRIC POLYPS, SMALL HIATAL HERNIA - EGD W/O BRSH SPECIMEN W/BX 12/27/2011 small to mod hiatal hernia, duodenitis - mild - EGD W/O BRSH SPECIMEN W/BX 10/25/14 small hiatal hernia, - EGD W/O OR W/BRUSH/WASH 11/22/2005 EGD - FISSURE;SPHINCTEROTOMY/ ANAL 04/15/2005 For anal Fissures - LAPAROSCOPIC CHOLEYCYSTECTOMY 11/04/13 - LEFT HEART CATH,PERCUTANEOUS 12/2007 Current Outpatient Medications: MULTI-VITAMIN ORAL Take by mouth. levothyroxine (LEVOXYL) 75 mcg tablet Take 75 mcg by mouth once daily. simvastatin 80 mg tablet Take 0.5 tablets by mouth once daily. Tizanidine HCl 4 mg capsule Take 1 capsule by mouth three times daily. acetaminophen-hydrocodo ne 5-500 mg tablet Take 1 tablet by mouth every 4 hours as needed. warfarin (COUMADIN) 3 mg tablet once daily. omeprazole(PRILOSEC 40 MG CAP) Take one(1) capsule daily. atenolol 25 mg tablet Take 25 mg by mouth once daily. I tab in AM and 1/2 tab at night hyoscyamine sublingual 0.125 mg Subl Dissolve 1 tablet under the tongue three times daily. ramipril(ALTACE 5 MG CAP) Take one(1) capsule daily. No current facility-administered medications for this visit. ALLERGIES: Contrast Dye; Levaquin [Levofloxacin]; Naproxen PERSONAL HISTORY: Social History Socioeconomic History Marital status: Spouse name: Not on file Number of children: Not on file Years of education: Not on file Highest education level: Not on file Social Needs Financial resource strain: Not on file Food insecurity - worry: Not on file Food insecurity - inability: Not on file Transportation needs - medical: Not on file Transportation needs - non-medical: Not on file Occupational History Not on file Tobacco Use Smoking status: Never Smoker Substance and Sexual Activity Alcohol use: No Drug use: No Sexual activity: Yes Partners: Male Other Topics Concerns: Not on file Social History Narrative Not on file FAMILY HISTORY: FAMILY HISTORY Problem Relation Age of Onset - Diabetes Mother - Hypertension Mother - Stroke Father Heavy smoker REVIEW OF SYSTEMS GENERAL: No weight loss, malaise or fevers HEENT: Negative for frequent or significant headaches, No changes in hearing or vision, no nose bleeds or other nasal problems NECK: Negative for lumps, goiter, pain and significant neck swelling RESPIRATORY: Negative for cough, hemoptysis, wheezing, COPD, dyspnea or shortness of breath CARDIOVASCULAR: Negative for chest pain, leg swelling, hypertension, CHF or palpitations GI: See HPI SKIN: Negative for lesions, rash, and itching HEMATOLOGY/LYMPHOLOGY: Negative for prolonged bleeding, bruising easily or swollen nodes ENDOCRINE: Negative for cold or heat intolerance, polyuria, polydipsia and goiter PHYSICAL EXAMINATION: General: The patient is 68 year old female, well nourished, well hydrated in no acute distress. The patient is oriented to time, place, and person. VITALS: Blood pressure 138/82, pulse 77, temperature 36.7 ?C (98.1 ?F), height 151.1 cm (4' 11.5), weight 63.5 kg (140 lb), SpO2 97 %. Body mass index is 27.8 kg/m?. HEENT: Normal cephalic, ataumatic, pupils are equally round, sclera are anicteric, mucous membranes are moist, oropharynx is clear. Neck has no masses, asymmetry or lymphadenopathy. Respiratory: Clear to auscultation and percussion. Normal respiratory excursion and pattern. Cardiac: Examination is regular rate and rhythm. Normal S1/S2 Abdominal exam: Soft, nontender, with no palpable masses. No hepatosplenomegaly. No palpable hernias. Extremities: no clubbing, cyanosis or edema. No adenopathy. LABORATORY VALUES: As Noted RADIOLOGIC STUDIES: As Noted Assessment IMPRESSION: generalized abdominal discomfort, history of multiple adenomatous colon polyps. Recommend upper and lower endoscopy PLAN: I have reviewed my findings with the surgeon. Will plan for upper and lower endoscopy. We discussed the risks and benefits of the planned endoscopy. I have informed the patient that complications can occur including failure to complete the endoscopy and perforation. The patient had the opportunity to ask questions concerning the planned endoscopy. My staff has also explained the procedure to the patient in understandable terms and has given the patient printed material concerning the procedure. The patient freely consents to surgery. I plan to use Golytely bowel preparation Diagnoses: (R10.30) Lower abdominal pain (primary encounter diagnosis) (Z86.010) History of colonic polyps (R10.9) Stomach pain Myah Rosario PA-C [facility] HOSPon 09-24-2018 HOSP Patient:Anusha Vidal MRN: Height:4' 11.5(1.511 m) Weight:139 lb 15.9 oz (63.5 kg) Outpatient Medications as of 10/16/18: MULTI-VITAMIN ORAL levothyroxine (LEVOXYL) 75 mcg tablet atenolol 25 mg tablet simvastatin 80 mg tablet Tizanidine HCl 4 mg capsule acetaminophen-hydrocodo ne 5-500 mg tablet warfarin (COUMADIN) 3 mg tablet omeprazole(PRILOSEC 40 MG CAP) Admission/Clinic Administered Medications as of 10/16/18: lactated ringers infusion Problem List: Personal history of colonic polyps [Z86.010] Anal fissure [K60.2] Benign neoplasm of colon [D12.6] Duodenitis without mention of hemorrhage [K29.80] Esophagitis, unspecified [K20.9] Esophageal reflux [K21.9] Nontoxic multinodular goiter [E04.2] Abdominal pain, unspecified site [R10.9] Diaphragmatic hernia without mention of obstruction or gangrene [K44.9] Malignant neoplasm of thyroid gland (HCC) [C73] Other symptoms involving digestive system(787.99) [R19.8] Benign neoplasm of stomach [D13.1] Abdominal pain, epigastric [R10.13] Constipation [K59.00] Anal or rectal pain [K62.89] Allergies: Contrast Dye Levaquin [Levofloxacin] Naproxen Date Verified: 10/16/18 Lab Values No results within the last 30 days for the following basenames: K[facility]CT [facility] Maximo Acosta 09/24/2018 9:19 AM Signed 10-13-2018 Colon EGD [facility] Maximo Acosta 09/25/2018 3:59 PM Signed rescheduled to 10-16-2018 Progress Notes ([facility]): Myah Rosario PA-C 10/02/2018 2:21 AM Signed HISTORY AND PHYSICAL Anusha Vidal 1950 REFERRING PHYSICIAN: Adelina Alvarenga DO CHIEF COMPLAINT: Consult (Consult Colonoscopy) HPI: The patient is a 68 year old female referred for endoscopy. Anusha notes a history of multiple adenomatous colon polyps, notes has had to have very frequent surveillance endoscopies in the past, most performed by Dr. Royal with records in [employer] reviewed. In July 2016 she had endoscopy performed by Dr. Sheikh, those records are reviewed. She had several adenomatous polyps removed at that time and 2 year follow up was recommended. Patient NOTES both mid and lower intermittent abdominal discomfort. Notes pain in stomach somewhat alleviated with holding pressure against her abdomen, sometimes made worse with eating and drinking. Patient denies any change in bowel habits, weight changes, blood in stools, or black tarry stools. Denies family history of colon issues. Patient's past medical history is significant for several strokes and mini-strokes in the past, bicuspid aortic valve, COPD, diaphragmatic hernia, DVT, factor V Leiden, thyroid cancer. Patient is maintained on warfarin. She follows with Dr. Alvarenga for her chronic medical conditions. PAST MEDICAL HISTORY Diagnosis Date - Acute gastritis - Arrhythmia - Benign neoplasm of colon - Benign neoplasm of colon - Benign neoplasm of stomach - Bicuspid aortic valve - Chronic obstructive pulmonary disease (COPD) (HCC) - Diaphragmatic hernia without mention of obstruction or gangrene - Duodenitis without mention of hemorrhage - Duodenitis without mention of hemorrhage - DVT (deep venous thrombosis) (HCC) 12/2007 Right Lower leg - DVT (deep venous thrombosis) (HCC) 2010 - Factor V Leiden (HCC) - Gallbladder sludge 11/04/13 - Mini stroke (HCC) 2010 - Personal history of colonic polyps Colon polyps - Postmenopausal bleeding Postmenop. bleeding - RUQ pain 11/04/13 - Stroke (HCC) PAST SURGICAL HISTORY Procedure Laterality Date - ; THYROIDECTOMY TOTAL OR COMPLETE 2009 - COLONOSCOP W/ OR W/O BRSH SPEC 11/22/2005 Colonoscopy - COLONOSCOP W/ OR W/O BRSH SPEC 12/15/06 - COLONOSCOP W/ OR W/O BRSH SPEC 12/27/2011 Normal - 5 yr follow up - prior polyps - COLONOSCOPY [address] Yoselin Sheikh - COLONS W/REM POLYP HT BX SMALL POLYPS TRANSVERSE - EGD W/O BRSH SPECIMEN W/BX 12/15/06 - EGD W/O BRSH SPECIMEN W/BX GASTRIC POLYPS, SMALL HIATAL HERNIA - EGD W/O BRSH SPECIMEN W/BX 12/27/2011 small to mod hiatal hernia, duodenitis - mild - EGD W/O BRSH SPECIMEN W/BX 10/25/14 small hiatal hernia, - EGD W/O OR W/BRUSH/WASH 11/22/2005 EGD - FISSURE;SPHINCTEROTOMY/ ANAL 04/15/2005 For anal Fissures - LAPAROSCOPIC CHOLEYCYSTECTOMY 11/04/13 - LEFT HEART CATH,PERCUTANEOUS 12/2007 Current Outpatient Medications: MULTI-VITAMIN ORAL Take by mouth. levothyroxine (LEVOXYL) 75 mcg tablet Take 75 mcg by mouth once daily. simvastatin 80 mg tablet Take 0.5 tablets by mouth once daily. Tizanidine HCl 4 mg capsule Take 1 capsule by mouth three times daily. acetaminophen-hydrocodo ne 5-500 mg tablet Take 1 tablet by mouth every 4 hours as needed. warfarin (COUMADIN) 3 mg tablet once daily. omeprazole(PRILOSEC 40 MG CAP) Take one(1) capsule daily. atenolol 25 mg tablet Take 25 mg by mouth once daily. I tab in AM and 1/2 tab at night hyoscyamine sublingual 0.125 mg Subl Dissolve 1 tablet under the tongue three times daily. ramipril(ALTACE 5 MG CAP) Take one(1) capsule daily. No current facility-administered medications for this visit. ALLERGIES: Contrast Dye; Levaquin [Levofloxacin]; Naproxen PERSONAL HISTORY: Social History Socioeconomic History Marital status: Spouse name: Not on file Number of children: Not on file Years of education: Not on file Highest education level: Not on file Social Needs Financial resource strain: Not on file Food insecurity - worry: Not on file Food insecurity - inability: Not on file Transportation needs - medical: Not on file Transportation needs - non-medical: Not on file Occupational History Not on file Tobacco Use Smoking status: Never Smoker Substance and Sexual Activity Alcohol use: No Drug use: No Sexual activity: Yes Partners: Male Other Topics Concerns: Not on file Social History Narrative Not on file FAMILY HISTORY: FAMILY HISTORY Problem Relation Age of Onset - Diabetes Mother - Hypertension Mother - Stroke Father Heavy smoker REVIEW OF SYSTEMS GENERAL: No weight loss, malaise or fevers HEENT: Negative for frequent or significant headaches, No changes in hearing or vision, no nose bleeds or other nasal problems NECK: Negative for lumps, goiter, pain and significant neck swelling RESPIRATORY: Negative for cough, hemoptysis, wheezing, COPD, dyspnea or shortness of breath CARDIOVASCULAR: Negative for chest pain, leg swelling, hypertension, CHF or palpitations GI: See HPI SKIN: Negative for lesions, rash, and itching HEMATOLOGY/LYMPHOLOGY: Negative for prolonged bleeding, bruising easily or swollen nodes ENDOCRINE: Negative for cold or heat intolerance, polyuria, polydipsia and goiter PHYSICAL EXAMINATION: General: The patient is 68 year old female, well nourished, well hydrated in no acute distress. The patient is oriented to time, place, and person. VITALS: Blood pressure 138/82, pulse 77, temperature 36.7 ?C (98.1 ?F), height 151.1 cm (4' 11.5), weight 63.5 kg (140 lb), SpO2 97 %. Body mass index is 27.8 kg/m?. HEENT: Normal cephalic, ataumatic, pupils are equally round, sclera are anicteric, mucous membranes are moist, oropharynx is clear. Neck has no masses, asymmetry or lymphadenopathy. Respiratory: Clear to auscultation and percussion. Normal respiratory excursion and pattern. Cardiac: Examination is regular rate and rhythm. Normal S1/S2 Abdominal exam: Soft, nontender, with no palpable masses. No hepatosplenomegaly. No palpable hernias. Extremities: no clubbing, cyanosis or edema. No adenopathy. LABORATORY VALUES: As Noted RADIOLOGIC STUDIES: As Noted Assessment IMPRESSION: generalized abdominal discomfort, history of multiple adenomatous colon polyps. Recommend upper and lower endoscopy PLAN: I have reviewed my findings with the surgeon. Will plan for upper and lower endoscopy. We discussed the risks and benefits of the planned endoscopy. I have informed the patient that complications can occur including failure to complete the endoscopy and perforation. The patient had the opportunity to ask questions concerning the planned endoscopy. My staff has also explained the procedure to the patient in understandable terms and has given the patient printed material concerning the procedure. The patient freely consents to surgery. I plan to use Golytely bowel preparation Diagnoses: (R10.30) Lower abdominal pain (primary encounter diagnosis) (Z86.010) History of colonic polyps (R10.9) Stomach pain Myah Rosario PA-C Normal [facility] CNOVon 09-23-2018 CNOV Office Visit (GENSWS ) ANUSHA VIDAL ([id number]) 1950 F Date Time Provider Department 09/23/18 1:00 PM MYAH ROSARIO (PA) During your visit today, we recorded the following information about you: Temperature Pulse Blood pressure Weight 98.1 degrees 77/minute 138/82 63.5 kg Height 1.511 m Myah Rosario PA-C 10/02/2018 2:21 AM Signed HISTORY AND PHYSICAL Anusha Goncalves Young 1950 REFERRING PHYSICIAN: Adelina Alvarenga DO CHIEF COMPLAINT: Consult (Consult Colonoscopy) HPI: The patient is a 68 year old female referred for endoscopy. Anusha notes a history of multiple adenomatous colon polyps, notes has had to have very frequent surveillance endoscopies in the past, most performed by Dr. Royal with records in [employer] reviewed. In July 2016 she had endoscopy performed by Dr. Sheikh, those records are reviewed. She had several adenomatous polyps removed at that time and 2 year follow up was recommended. Patient NOTES both mid and lower intermittent abdominal discomfort. Notes pain in stomach somewhat alleviated with holding pressure against her abdomen, sometimes made worse with eating and drinking. Patient denies any change in bowel habits, weight changes, blood in stools, or black tarry stools. Denies family history of colon issues. Patient's past medical history is significant for several strokes and mini-strokes in the past, bicuspid aortic valve, COPD, diaphragmatic hernia, DVT, factor V Leiden, thyroid cancer. Patient is maintained on warfarin. She follows with Dr. Alvarenga for her chronic medical conditions. PAST MEDICAL HISTORY Diagnosis Date - Acute gastritis - Arrhythmia - Benign neoplasm of colon - Benign neoplasm of colon - Benign neoplasm of stomach - Bicuspid aortic valve - Chronic obstructive pulmonary disease (COPD) (HCC) - Diaphragmatic hernia without mention of obstruction or gangrene - Duodenitis without mention of hemorrhage - Duodenitis without mention of hemorrhage - DVT (deep venous thrombosis) (HCC) 12/2007 Right Lower leg - DVT (deep venous thrombosis) (HCC) 2010 - Factor V Leiden (HCC) - Gallbladder sludge 11/04/13 - Mini stroke (HCC) 2010 - Personal history of colonic polyps Colon polyps - Postmenopausal bleeding Postmenop. bleeding - RUQ pain 11/04/13 - Stroke (HCC) PAST SURGICAL HISTORY Procedure Laterality Date - ; THYROIDECTOMY TOTAL OR COMPLETE 2009 - COLONOSCOP W/ OR W/O BRSH SPEC 11/22/2005 Colonoscopy - COLONOSCOP W/ OR W/O BRSH SPEC 12/15/06 - COLONOSCOP W/ OR W/O BRSH SPEC 12/27/2011 Normal - 5 yr follow up - prior polyps - COLONOSCOPY [address] Yoselin Sheikh - COLONS W/REM POLYP HT BX SMALL POLYPS TRANSVERSE - EGD W/O BRSH SPECIMEN W/BX 12/15/06 - EGD W/O BRSH SPECIMEN W/BX GASTRIC POLYPS, SMALL HIATAL HERNIA - EGD W/O BRSH SPECIMEN W/BX 12/27/2011 small to mod hiatal hernia, duodenitis - mild - EGD W/O BRSH SPECIMEN W/BX 10/25/14 small hiatal hernia, - EGD W/O OR W/BRUSH/WASH 11/22/2005 EGD - FISSURE;SPHINCTEROTOMY/ ANAL 04/15/2005 For anal Fissures - LAPAROSCOPIC CHOLEYCYSTECTOMY 11/04/13 - LEFT HEART CATH,PERCUTANEOUS 12/2007 Current Outpatient Medications: MULTI-VITAMIN ORAL Take by mouth. levothyroxine (LEVOXYL) 75 mcg tablet Take 75 mcg by mouth once daily. simvastatin 80 mg tablet Take 0.5 tablets by mouth once daily. Tizanidine HCl 4 mg capsule Take 1 capsule by mouth three times daily. acetaminophen-hydrocodo ne 5-500 mg tablet Take 1 tablet by mouth every 4 hours as needed. warfarin (COUMADIN) 3 mg tablet once daily. omeprazole(PRILOSEC 40 MG CAP) Take one(1) capsule daily. atenolol 25 mg tablet Take 25 mg by mouth once daily. I tab in AM and 1/2 tab at night hyoscyamine sublingual 0.125 mg Subl Dissolve 1 tablet under the tongue three times daily. ramipril(ALTACE 5 MG CAP) Take one(1) capsule daily. No current facility-administered medications for this visit. ALLERGIES: Contrast Dye; Levaquin [Levofloxacin]; Naproxen PERSONAL HISTORY: Social History Socioeconomic History Marital status: Spouse name: Not on file Number of children: Not on file Years of education: Not on file Highest education level: Not on file Social Needs Financial resource strain: Not on file Food insecurity - worry: Not on file Food insecurity - inability: Not on file Transportation needs - medical: Not on file Transportation needs - non-medical: Not on file Occupational History Not on file Tobacco Use Smoking status: Never Smoker Substance and Sexual Activity Alcohol use: No Drug use: No Sexual activity: Yes Partners: Male Other Topics Concerns: Not on file Social History Narrative Not on file FAMILY HISTORY: FAMILY HISTORY Problem Relation Age of Onset - Diabetes Mother - Hypertension Mother - Stroke Father Heavy smoker REVIEW OF SYSTEMS GENERAL: No weight loss, malaise or fevers HEENT: Negative for frequent or significant headaches, No changes in hearing or vision, no nose bleeds or other nasal problems NECK: Negative for lumps, goiter, pain and significant neck swelling RESPIRATORY: Negative for cough, hemoptysis, wheezing, COPD, dyspnea or shortness of breath CARDIOVASCULAR: Negative for chest pain, leg swelling, hypertension, CHF or palpitations GI: See HPI SKIN: Negative for lesions, rash, and itching HEMATOLOGY/LYMPHOLOGY: Negative for prolonged bleeding, bruising easily or swollen nodes ENDOCRINE: Negative for cold or heat intolerance, polyuria, polydipsia and goiter PHYSICAL EXAMINATION: General: The patient is 68 year old female, well nourished, well hydrated in no acute distress. The patient is oriented to time, place, and person. VITALS: Blood pressure 138/82, pulse 77, temperature 36.7 ?C (98.1 ?F), height 151.1 cm (4' 11.5), weight 63.5 kg (140 lb), SpO2 97 %. Body mass index is 27.8 kg/m?. HEENT: Normal cephalic, ataumatic, pupils are equally round, sclera are anicteric, mucous membranes are moist, oropharynx is clear. Neck has no masses, asymmetry or lymphadenopathy. Respiratory: Clear to auscultation and percussion. Normal respiratory excursion and pattern. Cardiac: Examination is regular rate and rhythm. Normal S1/S2 Abdominal exam: Soft, nontender, with no palpable masses. No hepatosplenomegaly. No palpable hernias. Extremities: no clubbing, cyanosis or edema. No adenopathy. LABORATORY VALUES: As Noted RADIOLOGIC STUDIES: As Noted Assessment IMPRESSION: generalized abdominal discomfort, history of multiple adenomatous colon polyps. Recommend upper and lower endoscopy PLAN: I have reviewed my findings with the surgeon. Will plan for upper and lower endoscopy. We discussed the risks and benefits of the planned endoscopy. I have informed the patient that complications can occur including failure to complete the endoscopy and perforation. The patient had the opportunity to ask questions concerning the planned endoscopy. My staff has also explained the procedure to the patient in understandable terms and has given the patient printed material concerning the procedure. The patient freely consents to surgery. I plan to use Golytely bowel preparation Diagnoses: (R10.30) Lower abdominal pain (primary encounter diagnosis) (Z86.010) History of colonic polyps (R10.9) Stomach pain Myah Rosario PA-C Referring Provider: ADELINA ALVARENGA [[id number]] Allergies As of Date: 09/23/2018 Noted Allergy Reaction CONTRAST DYE 09/30/2006 4 - Hives LEVAQUIN (LEVOFLOXACIN) 10/14/2014 14 - Other: See Comments Comments: Abd pain NAPROXEN 03/11/2005 8 - GI Upset Date Reviewed: 09/23/2018 Reviewed by: Myah Rosario (Pa) - Fully Assessed Reason for Visit: Consult [173] Cmt: Consult Colonoscopy Primary Visit Diagnosis:Lower abdominal pain [R10.30] Other Visit Diagnoses:History of colonic polyps [Z86.010] Stomach pain [R10.9] Order(s):[] peg 3350-Electrolytes (GOLYTELY) 236-22.74-6.74 -5.86 gram suspensionTake 4,000 mL by mouth one time only for 1 dose.Disp: 1 BottleRfl: 0 Prescriptions as of 09/23/2018 Sig: MULTI-VITAMIN ORAL Take by mouth. LEVOTHYROXINE 75 MCG TABLET Take 75 mcg by mouth once mateo* SIMVASTATIN 80 MG TABLET Take 0.5 tablets by mouth onc* * TIZANIDINE 4 MG CAPSULE Take 1 capsule by mouth three* * HYDROCODONE 5 MG-ACETAMINOPHE* Take 1 tablet by mouth every * * WARFARIN 3 MG TABLET once daily. * PRILOSEC 40 MG CAPSULE,DELAYE* Take one(1) capsule daily. PEG 3350-ELECTROLYTES 236 GRA* Take 4,000 mL by mouth one ti* ATENOLOL 25 MG TABLET Take 25 mg by mouth once betty* * HYOSCYAMINE 0.125 MG SUBLINGU* Dissolve 1 tablet under the t* * ALTACE 5 MG CAPSULE Take one(1) capsule daily. Medication notes this encounter HYOSCYAMINE 0.125 MG SUBLINGUAL TABLET >> Hal Sawyer MAT MAKER 09/23/2018 12:56 PM >> HAL SAWYER LPN FriSep 23, 2018 12:56 PM Please d/c ALTACE 5 MG CAPSULE >> Hal Sawyer MAT MAKER 09/23/2018 12:57 PM >> HAL SAWYER LPN FriSep 23, 2018 12:57 PM Please d/c Problem List As Of Date 09/23/2018 Noted Resolved PERS HX COLONIC POLYPS [Z86.010] More... 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 Encounter Status:Closed by MYAH ROSARIO PA-C on 10/02/18 Normal [facility] Lab Report: Lipid Profileon 05-21-2017 Cholesterol 154 mg/dL Invalid Interpretation Code 200 [employer] Work Phone: [phone] HDL Cholesterol 71 mg/dL Invalid Interpretation Code [employer] Work Phone: [phone] LDL Cholesterol 67 mg/dL Invalid Interpretation Code 0-130 [employer] Work Phone: [phone] Triglyceride 81 mg/dL Invalid Interpretation Code [employer] Work Phone: [phone] very low density lipoproteins 16 mg/dL Invalid Interpretation Code 5-40 [employer] Work Phone: [phone] Lab Report: Liver Profileon 05-21-2017 Alanine aminotransferase (ALT) 29 U/L Invalid Interpretation Code 12-78 [employer] Work Phone: [phone] Albumin 3.7 g/dL Invalid Interpretation Code 3.4-5.0 [employer] Work Phone: [phone] Alkaline phosphatase (ALP) 100 U/L Invalid Interpretation Code 45-117 [employer] Work Phone: [phone] Aspartate aminotransferase (AST) 24 U/L Invalid Interpretation Code 15-37 [employer] Work Phone: [phone] Bilirubin (direct) 0.15 mg/dL Invalid Interpretation Code 0.00-0.30 [employer] Work Phone: [phone] Bilirubin (total) 0.60 mg/dL Invalid Interpretation Code 0.20-1.00 [employer] Work Phone: [phone] Globulin 3.1 g/dL Invalid Interpretation Code 2.2-4.2 [employer] Work Phone: [phone] Protein 6.8 g/dL Invalid Interpretation Code 6.4-8.2 [employer] Work Phone: [phone] Lab Report: Lipid Profileon 11-18-2016 Cholesterol 126 mg/dL Invalid Interpretation Code 200 [employer] Work Phone: [phone] HDL Cholesterol 55 mg/dL Invalid Interpretation Code [employer] Work Phone: [phone] LDL Cholesterol 50 mg/dL Invalid Interpretation Code 0-130 [employer] Work Phone: [phone] Triglyceride 103 mg/dL Invalid Interpretation Code [employer] Work Phone: [phone] very low density lipoproteins 21 mg/dL Invalid Interpretation Code 5-40 [employer] Work Phone: [phone] Lab Report: Liver Profileon 11-18-2016 Alanine aminotransferase (ALT) 26 U/L Invalid Interpretation Code 12-78 [employer] Work Phone: [phone] Albumin 3.4 g/dL Invalid Interpretation Code 3.4-5.0 [employer] Work Phone: [phone] Alkaline phosphatase (ALP) 98 U/L Invalid Interpretation Code 45-117 [employer] Work Phone: [phone] ALP enzyme act/vol (Bld) 98 U/L 45-117 [employer] Work Phone: [phone] Aspartate aminotransferase (AST) 17 U/L Invalid Interpretation Code 15-37 [employer] Phone: [phone] Bilirubin (direct) 0.08 mg/dL Invalid Interpretation Code 0.00-0.30 [employer] Work Phone: [phone] Bilirubin (total) 0.20 mg/dL Invalid Interpretation Code 0.20-1.00 [employer] Work Phone: [phone] Globulin 2.7 g/dL Invalid Interpretation Code 2.3-3.5 [facility] [employer] Work Phone: [phone] Globulin mass conc (S) 2.7 g/dL 2.3-3.5 [facility] [employer] Work Phone: [phone] Protein 6.1 g/dL Low 6.4-8.2 [facility] [employer] Work Phone: [phone]) Lab Report: Prothrombin Time w/INRon 11-18-2016 Coagulation tissue factor induced in platelet poor plasma 12.8 s Invalid Interpretation Code 11.7-14.9 [facility] [employer] Work Phone: [phone] INR Coag RelTime (PPP) 1.0 {INR} Invalid Interpretation Code [facility] [employer] Phone: [phone] INR in blood by coagulation 1.0 {INR} Invalid Interpretation Code [facility] [employer] Phone: [phone] Office Visiton 11-05-2016 Documentation of current medications (procedure) Done Invalid Interpretation Code [employer] [employer] Work Phone: [phone] Protein mass conc Done [employer] [employer] Work Phone: [phone] Chart Maintenanceon 11-05-19 17 Left ventricular Ejection fraction 65 % Invalid Interpretation Code [employer] [employer] Work Phone: [phone]) Lab Report: Lipid Profileon 05-13-2016 Cholesterol [Mass/Vol] 137 mg/dL Invalid Interpretation Code 200 [employer] [employer] Work Phone: [phone] Cholesterol in HDL [Mass/Vol] 58 mg/dL Invalid Interpretation Code [employer] [employer] Work Phone: [phone] Cholesterol in LDL [Mass/Vol] 51 mg/dL Invalid Interpretation Code 0-130 [employer] [employer] Work Phone: [phone] Lipoprotein.pre-beta [Mass/Vol] 28 mg/dL Invalid Interpretation Code 5-40 [employer] [employer] Work Phone: [phone] Triglyceride [Mass/Vol] 142 mg/dL Invalid Interpretation Code [employer] [employer] Work Phone: [phone] Lab Report: Liver Profileon 05-13-2016 Albumin [Mass/Vol] 3.6 g/dL Invalid Interpretation Code 3.4-5.0 [employer] Phone: [phone] Alkaline phosphatase (ALP) 83 U/L Invalid Interpretation Code 45-117 [employer] [employer] Work Phone: [phone] ALP (Bld) [Catalytic activity/Vol] 83 U/L 45-117 [employer] [employer] Work Phone: [phone] ALT [Catalytic activity/Vol] 24 U/L Invalid Interpretation Code 12-78 [employer] [employer] Work Phone: [phone] AST [Catalytic activity/Vol] 22 U/L Invalid Interpretation Code 15-37 [employer] [employer] Work Phone: [phone] Bilirubin [Mass/Vol] 0.50 mg/dL Invalid Interpretation Code 0.20-1.00 [employer] [employer] Work Phone: [phone] Bilirubin.direct [Mass/Vol] 0.14 mg/dL Invalid Interpretation Code 0.00-0.30 [employer] [employer] Work Phone: [phone] Globulin 3.0 g/dL Invalid Interpretation Code 2.3-3.5 [facility] Work Phone: [phone] Globulin (S) [Mass/Vol] 3.0 g/dL 2.3-3.5 [facility] Work Phone: [phone] Protein [Mass/Vol] 6.6 g/dL Invalid Interpretation Code 6.4-8.2 [facility] Work Phone: [phone]) Lab Report: Prothrombin Time w/INRon 05-13-2016 INR Coag (PPP) [Relative time] 2.4 {INR} [facility] Work Phone: [phone] INR in blood by coagulation 2.4 {INR} Invalid Interpretation Code [facility] Work Phone: [phone] PT Coag (PPP) [Time] 25.2 s High 11.7-14.[address] [facility] Work Phone: [phone] Office Visiton 05-09-2016 Documentation of current medications (procedure) Done Invalid Interpretation Code [facility] Work Phone: [phone] Tobacco smoking status NHIS Tobacco smoking status DEIS Invalid Interpretation Code [facility] Work Phone: [phone] Tobacco smoking status NHIS Never smoker [facility] Work Phone: [phone] Tobacco use [facility] Never smoker Invalid Interpretation Code [facility] Work Phone: [phone] Phone Note: inron 01-09-2016 INR Coag (Bld) [Relative time] Hospital lab Invalid Interpretation Code [facility] Work Phone: [phone] INR in blood by coagulation 2 to 3 Invalid Interpretation Code [facility] Work Phone: [phone] international normalized ratio (INR) range 2 to 3 [facility] Work Phone: [phone] PT Coag (PPP) [Time] 0 s Invalid Interpretation Code [facility] Work Phone: [phone] Office Visit: Est PCPon Tobacco smoking status NHIS Never Invalid Interpretation Code [facility] Work Phone: [phone] Office Visiton 10-18-2014 cardiac risk group C Invalid Interpretation Code [facility] Work Phone: General cardiovascular disease 10Y risk [#] [place] N/A Invalid Interpretation Code [facility] Work Phone: [phone] Lab Report: VITDon 3 GE use only - for [employer] import when terms are not otherwise specified 38.6 NG/ML Normal [facility] Work Phone: [phone] VITD 38.6 NG/ML Normal [facility] Work Phone: [phone] Lab Report: CBCMDon 01-13-20 13 Erythrocytes (RBC) 4.41 10*6/uL Normal 4.2-5.[address] [facility] Work Phone: [phone] Hematocrit (Bld) [Volume fraction] 40.8 % Normal 37-47 [facility] Work Phone: [phone] Hematocrit (HCT) 40.8 % Normal 37-47 [facility] Work Phone: [phone] Hemoglobin (Bld) [Mass/Vol] 13.3 g/dL Normal 12.0-15.0 [facility] Work Phone: [phone] Platelets 190 10*3/mm3 Normal 150-450 [facility] Work Phone: [phone] Platelets (Bld) [#/Vol] 190 10*3/mm3 Normal 150-450 [facility] Work Phone: [phone] RBC (Bld) [#/Vol] 4.41 10*6/uL Normal 4.2-5.4 [facility] Work Phone: [phone] WBC (Bld) [#/Vol] 3.9 10*3/uL Low 4.4-11.0 [facility] Work Phone: [phone] WBC (Leukocytes) 3.9 10*3/uL Low 4.4-11.0 [facility] Work Phone: [phone] Lab Report: CMPon 01-12-2013 Calcium [Mass/Vol] 8.5 mg/dL Normal 8.5-10.1 [facility] Work Phone: [phone] Chloride [Moles/Vol] 109 mmol/L High 98-[address] [facility] Work Phone: [phone] Creatinine [Mass/Vol] 1.1 mg/dL High 0.6-1.0 [facility] Work Phone: [phone] Glucose 97 mg/dL Normal 70-110 [facility] Work Phone: [phone] Glucose [Mass/Vol] 97 mg/dL Normal 70-110 [facility] [employer] Work Phone: [phone] Potassium [Moles/Vol] 4.0 mmol/L Normal 3.5-5.1 [facility] Work Phone: [phone] Sodium [Moles/Vol] 142 mmol/L Normal 136-145 [facility] [facility] Work Phone: [phone] Urea nitrogen [Mass/Vol] 13 mg/dL Normal 7-18 [facility] Work Phone: [phone] Lab Report: TSHon 08-26-2012 TSH Qn 0.13 u[iU]/mL Low 0.358-3.74 [facility] [employer] Work Phone: [phone] Replaced Document: Sreedhar Garciaon 12-09-2011 EKG QRS axis 17 deg Invalid Interpretation Code [facility] [employer] Work Phone: [phone] electrocardiogram interpretation Sinus Bradycardia - Negative precordial T-waves -Probably normal -consider anteroseptal ischemia . PROBABLY NORMAL FOR AGE Invalid Interpretation Code [facility] [employer] Work Phone: [phone] Interpretation Sinus Bradycardia - Negative precordial T-waves -Probably normal -consider anteroseptal ischemia . PROBABLY NORMAL FOR AGE Invalid Interpretation Code [facility] [employer] Work Phone: [phone] P [place] 43 deg Invalid Interpretation Code [facility] [employer] Work Phone: [phone] P wave axis, electrocardiogram 43 deg Invalid Interpretation Code [facility] [employer] Work Phone: [phone] PA Interval 146 ms Invalid Interpretation Code [facility] [employer] Work Phone: [phone] PA interval, electrocardiogram 146 ms Invalid Interpretation Code [facility] [employer] Work Phone: [phone] Pulse (Heart Rate) 58 /min Invalid Interpretation Code [facility] [employer] Work Phone: [phone] Pulse (Heart Rate) 419 ms Invalid Interpretation Code [facility] Work Phone: [phone] QRS axis, electrocardiogram 17 deg Invalid Interpretation Code [facility] Work Phone: [phone] QRS Duration 94 ms Invalid Interpretation Code [facility] Work Phone: [phone] QRS duration, electrocardiogram 94 ms Invalid Interpretation Code [facility] Work Phone: [phone] QT Interval new path ms Invalid Interpretation Code [facility] Work Phone: [phone] QT interval, electrocardiogram new path ms Invalid Interpretation Code [facility] Work Phone: [phone] T [place] 37 deg Invalid Interpretation Code [facility] Work Phone: [phone] T wave axis, electrocardiogram 37 deg Invalid Interpretation Code [facility] Work Phone: [phone] Lab Reporton 11-08-2011 Anion gap 8 mmol/L Invalid Interpretation Code [facility] Work Phone: [phone] Anion gap [Moles/Vol] 8 mmol/L [facility] Work Phone: [phone] CO2 28.0 mmol/L Invalid Interpretation Code [facility] Work Phone: [phone] CO2 (BldV) [Partial pressure] 28.0 mmol/L [facility] Work Phone: [phone] Urea nitrogen/Creatinine [Mass ratio] 10.0 mg/mg Invalid Interpretation Code [facility] Work Phone: [phone] Lab Reporton 10-31-2011 MCH 31.7 pg Invalid Interpretation Code [facility] Work Phone: [phone] MCH (RBC) [Entitic mass] 31.7 pg [facility] Work Phone: [phone] MCV 92.0 fL Invalid Interpretation Code [facility] Work Phone: [phone] MCV (RBC) [Entitic vol] 92.0 fL [facility] Work Phone: [phone] Vital Signs Date Time Vital Sign Value Performing Clinician Facility 08-04-2024 12:56-0500 Body height 149.[address] Adelina Alvarenga DO Work Phone: [facility] 08-04-2024 12:56-0500 Body mass index (BMI) [Ratio] 25.2 kg/m2 Dr. Adelina Alvarenga DO Work Phone: [facility] 08-04-2024 12:56-0500 Body weight 56.[address] Adelina Alvarenga DO Work Phone: [facility] 08-04-2024 12:56-0500 Diastolic blood pressure 85 mm[Hg] Dr. Adelina Alvarenga DO Work Phone: [facility] 08-04-2024 12:56-0500 Heart rate 54 /min Dr. Adelina Alvarenga DO Work Phone: [facility] 08-04-2024 12:56-0500 Respiratory rate 18 /min Dr. Adelina Alvarenga DO Work Phone: [facility] 08-04-2024 12:56-0500 SaO2% (BldA) [Mass fraction] 96 % Dr. Adelina Alvarenga DO Work Phone: [facility] 08-04-2024 12:56-0500 Systolic blood pressure 155 mm[Hg] Dr. Adelina Alvarenga DO Work Phone: [facility] 07-16-2024 12:10-0500 Body height 149.9 cm Wesley Bui MD Work Phone: [facility] 07-16-2024 12:10-0500 Body mass index (BMI) [Ratio] 25.04 kg/m2 Wesley Bui MD Work Phone: [facility] 07-16-2024 12:10-0500 Body temperature 98.01 [degF] Wesley Bui MD Work Phone: [facility] 07-16-2024 12:10-0500 Body weight 56.25 kg Wesley Bui MD Work Phone: [facility] 07-16-2024 12:10-0500 Diastolic blood pressure 77 mm[Hg] Wesley Bui MD Work Phone: 2(502)625-849652 [place] [address] 07-16-2024 12:10-0500 Heart rate 54 /min Wesley Bui MD Work Phone: 8(473)963-411428 [place] [address] 07-16-2024 12:10-0500 SaO2% (BldA) [Mass fraction] 98 % Wesley Bui MD Work Phone: 8(064)393-535228 [place] [address] 07-16-2024 12:10-0500 Systolic blood pressure 148 mm[Hg] Wesley Bui MD Work Phone: 3(153)009-741428 [place] [address] 06-18-2024 11:12-0500 Body temperature 97.5 [degF] Wesley Bui MD Work Phone: 4(899)235-219328 [place] [address] 06-18-2024 11:12-0500 Diastolic blood pressure 52 mm[Hg] Wesley Bui MD Work Phone: 3(369)688-179428 [place] [address] 06-18-2024 11:12-0500 Heart rate 74 /min Wesley Bui MD Work Phone: 8(606)530-025628 [place] [address] 06-18-2024 11:12-0500 Respiratory rate 16 /min Wesley Bui MD Work Phone: 5(343)839-368528 [place] [address] 06-18-2024 11:12-0500 SaO2% (BldA) [Mass fraction] 93 % Wesley Bui MD Work Phone: 1(224)428-992728 [place] [address] 06-18-2024 11:12-0500 Systolic blood pressure 97 mm[Hg] Wesley Bui MD Work Phone: 3(827)018-201728 [place] [address] 06-17-2024 08:28-0500 Body mass index (BMI) [Ratio] 27.75 kg/m2 Wesley Bui MD Work Phone: 8(410)083-023828 [place] [address] 06-17-2024 08:28-0500 Body weight 62.32 kg Wesley Bui MD Work Phone: [facility] 06-15-2024 09:36-0500 Body height 149.9 cm Wesley Bui MD Work Phone: [facility] 05-21-2024 09:36-0500 Body height 149.9 cm Anton Tyson FIELD SERVICE CONSULTANT-PUBLICATIONS EDITOR Work Phone: [facility] 05-21-2024 09:36-0500 Body mass index (BMI) [Ratio] 26.36 kg/m2 Anton Tyson FIELD SERVICE CONSULTANT-PUBLICATIONS EDITOR Work Phone: [facility] 05-21-2024 09:36-0500 Body temperature 97.59 [degF] Anton Tyson FIELD SERVICE CONSULTANT-PUBLICATIONS EDITOR Work Phone: [facility] 05-21-2024 09:36-0500 Body weight 59.19 kg Anton Tyson FIELD SERVICE CONSULTANT-PUBLICATIONS EDITOR Work Phone: [facility] 05-21-2024 09:36-0500 Diastolic blood pressure 78 mm[Hg] Anton Tyson FIELD SERVICE CONSULTANT-PUBLICATIONS EDITOR Work Phone: [facility] 05-21-2024 09:36-0500 Heart rate 54 /min Anton Tyson FIELD SERVICE CONSULTANT-PUBLICATIONS EDITOR Work Phone: [facility] 05-21-2024 09:36-0500 Respiratory rate 16 /min Anton Tyson FIELD SERVICE CONSULTANT-PUBLICATIONS EDITOR Work Phone: [facility] 05-21-2024 09:36-0500 SaO2% (BldA) [Mass fraction] 96 % Anton Tyson FIELD SERVICE CONSULTANT-PUBLICATIONS EDITOR Work Phone: [facility] 05-21-2024 09:36-0500 Systolic blood pressure 148 mm[Hg] Anton Tyson FIELD SERVICE CONSULTANT-PUBLICATIONS EDITOR Work Phone: [facility] 05-14-2024 10:25-0500 Body height 149.9 cm Wesley Bui MD Work Phone: [facility] Comment on above: pt stated 05-14-2024 10:25-0500 Body mass index (BMI) [Ratio] 25.93 kg/m2 Wesley Bui MD Work Phone: [facility] 05-14-2024 10:25-0500 Body weight 58.24 kg Wesley Bui MD Work Phone: [facility] Comment on above: with shoes 05-14-2024 10:25-0500 Diastolic blood pressure 76 mm[Hg] Wesley Bui MD Work Phone: 3(354)657-766828 [place] [address] 05-14-2024 10:25-0500 Heart rate 56 /min Wesley Bui MD Work Phone: [facility] 05-14-2024 10:25-0500 SaO2% (BldA) [Mass fraction] 100 % Wesley Bui MD Work Phone: [facility] 05-14-2024 10:25-0500 Systolic blood pressure 151 mm[Hg] Wesley Bui MD Work Phone: [facility] 04-16-2024 07:32-0500 Body mass index (BMI) [Ratio] 25.25 kg/m2 [facility] 04-16-2024 07:32-0500 Body temperature 97.7 [degF] [facility] 04-16-2024 07:32-0500 Body weight 56.7 kg [facility] 04-16-2024 07:32-0500 Diastolic blood pressure 77 mm[Hg] [facility] 04-16-2024 07:32-0500 Heart rate 57 /min [facility] 04-16-2024 07:32-0500 SaO2% (BldA) [Mass fraction] 97 % [facility] 04-16-2024 07:32-0500 Systolic blood pressure 144 mm[Hg] [facility] 04-01-2024 13:20-0400 Diastolic blood pressure 65 mm[Hg] Wesley Bui MD Work Phone: 8(752)853-802928 [place] [address] 04-01-2024 13:20-0400 Heart rate 70 /min Wesley Bui MD Work Phone: 4(824)901-051428 [place] [address] 04-01-2024 13:20-0400 Respiratory rate 23 /min Wesley Bui MD Work Phone: 2(371)593-023028 [place] [address] 04-01-2024 13:20-0400 SaO2% (BldA) [Mass fraction] 95 % Wesley Bui MD Work Phone: 3(315)905-902328 [place] [address] 04-01-2024 13:20-0400 Systolic blood pressure 118 mm[Hg] Wesley Bui MD Work Phone: 9(403)845-858728 [place] [address] 04-01-2024 12:40-0400 Body temperature 97.5 [degF] Wesley Bui MD Work Phone: 3(015)920-325028 [place] [address] 04-01-2024 11:50-0400 Body height 149.9 cm Wesley Bui MD Work Phone: 3(721)508-332628 [place] [address] 04-01-2024 11:50-0400 Body mass index (BMI) [Ratio] 25.33 kg/m2 Wesley Bui MD Work Phone: 2(631)505-253828 [place] [address] 04-01-2024 11:50-0400 Body weight 56.88 kg Wesley Bui MD Work Phone: 3(068)770-034128 [place] [address] 03-26-2024 12:20-0400 Body height 149.9 cm Wesley Bui MD Work Phone: 7(481)423-615828 [place] [address] Comment on above: pt stated 03-26-2024 12:20-0400 Body mass index (BMI) [Ratio] 25.83 kg/m2 Wesley Bui MD Work Phone: 0(652)393-114228 [place] [address] 03-26-2024 12:20-0400 Body temperature 98.01 [degF] Wesley Bui MD Work Phone: 8(797)830-329128 [place] [address] 03-26-2024 12:20-0400 Body weight 58.02 kg Wesley Bui MD Work Phone: 4(319)072-903528 [place] [address] Comment on above: with shoes 03-26-2024 12:20-0400 Diastolic blood pressure 91 mm[Hg] Wesley Bui MD Work Phone: 1(929)922-773528 [place] [address] 03-26-2024 12:20-0400 Heart rate 62 /min Wesley Bui MD Work Phone: 8(425)811-762528 [place] [address] 03-26-2024 12:20-0400 SaO2% (BldA) [Mass fraction] 99 % Wesley Bui MD Work Phone: 5(329)062-801028 [place] [address] 03-26-2024 12:20-0400 Systolic blood pressure 166 mm[Hg] Wesley Bui MD Work Phone: 1(221)670-956428 [place] [address] 03-04-2024 10:36-0400 Body height 149.9 cm Agatha Bernabe MD Work Phone: [facility] 03-04-2024 10:36-0400 Body mass index (BMI) [Ratio] 25.97 kg/m2 Agatha Bernabe MD Work Phone: [facility] 03-04-2024 10:36-0400 Body weight 58.33 kg Agatha Bernabe MD Work Phone: [facility] 03-04-2024 10:36-0400 Diastolic blood pressure 72 mm[Hg] Agatha Bernabe MD Work Phone: [facility] 03-04-2024 10:36-0400 Heart rate 63 /min Agatha Bernabe MD Work Phone: [facility] 03-04-2024 10:36-0400 Systolic blood pressure 116 mm[Hg] Agatha Bernabe MD Work Phone: [facility] 02-11-2024 15:43-0400 Diastolic blood pressure 71 mm[Hg] Agatha Bernabe MD Work Phone: [facility] 02-11-2024 15:43-0400 Heart rate 74 /min Agatha Bernabe MD Work Phone: [facility] 02-11-2024 15:43-0400 Respiratory rate 18 /min Agatha Bernabe MD Work Phone: [facility] 02-11-2024 15:43-0400 SaO2% (BldA) [Mass fraction] 96 % Agatha Bernabe MD Work Phone: [facility] 02-11-2024 15:43-0400 Systolic blood pressure 118 mm[Hg] Agatha Bernabe MD Work Phone: [facility] 02-11-2024 15:29-0400 Body temperature 98.01 [degF] Agatha Bernabe MD Work Phone: [facility] 01-14-2024 10:29-0400 Body height 149.9 cm Agatha Bernabe MD Work Phone: [facility] 01-14-2024 10:29-0400 Body mass index (BMI) [Ratio] 25.77 kg/m2 Agatha Bernabe MD Work Phone: [facility] 01-14-2024 10:29-0400 Body weight 57.88 kg Agatha Bernabe MD Work Phone: [facility] 01-14-2024 10:29-0400 Diastolic blood pressure 84 mm[Hg] Agatha Bernabe MD Work Phone: [facility] 01-14-2024 10:29-0400 Heart rate 75 /min Agatha Bernabe MD Work Phone: [facility] 01-14-2024 10:29-0400 Systolic blood pressure 122 mm[Hg] Agatha Bernabe MD Work Phone: [facility] 01-07-2024 10:38-0400 Body height 149.9 cm Luan Chapa MD Work Phone: [facility] 01-07-2024 10:38-0400 Body mass index (BMI) [Ratio] 27.27 kg/m2 Luan Chapa MD Work Phone: [facility] 01-07-2024 10:38-0400 Body weight 61.24 kg Luan Chapa MD Work Phone: [facility] 01-07-2024 10:38-0400 Diastolic blood pressure 65 mm[Hg] Luan Chapa MD Work Phone: [facility] 01-07-2024 10:38-0400 Heart rate 73 /min Luan Chapa MD Work Phone: [facility] 01-07-2024 10:38-0400 Respiratory rate 18 /min Luan Chapa MD Work Phone: [facility] 01-07-2024 10:38-0400 Systolic blood pressure 114 mm[Hg] Luan Chapa MD Work Phone: [facility] 06-11-2023 08:46-0500 Body height 149.[address] Adelina Alvarenga Work Phone: [facility] 06-11-2023 08:46-0500 Body mass index (BMI) [Ratio] 25.8 kg/m2 Dr. Adelina Alvarenga Work Phone: [facility] 06-11-2023 08:46-0500 Body weight 58.[address] Adelina Alvarenga Work Phone: [facility] 06-11-2023 08:46-0500 Diastolic blood pressure 70 mm[Hg] Dr. Adelina Alvarenga Work Phone: [facility] 06-11-2023 08:46-0500 Heart rate 60 /min Dr. Adelina Alvarenga Work Phone: [facility] 06-11-2023 08:46-0500 Respiratory rate 16 /min Dr. Adelina Alvarenga Work Phone: [facility] 06-11-2023 08:46-0500 Systolic blood pressure 107 mm[Hg] Dr. Adelina Alvarenga Work Phone: [facility] 05-15-2023 09:23-0500 Heart rate 65 /min MARIO MENSAH DO [facility] 05-15-2023 06:17-0500 Body temperature 97.88 [degF] MARIO MENSAH DO [facility] 05-15-2023 06:17-0500 Diastolic Blood Pressure Non-Invasive 76 mm[Hg] MARIO MENSAH DO [facility] 05-15-2023 06:17-0500 Heart rate 63 /min MARIO MENSAH DO [facility] 05-15-2023 06:17-0500 Reason For Taking VItal Signs MARIO MENSAH DO [facility] 05-15-2023 06:17-0500 Respiratory rate 18 /min MARIO MENSAH DO [facility] 05-15-2023 06:17-0500 Systolic Blood Pressure Non-Invasive 93 mm[Hg] MARIO MENSAH DO [facility] 05-15-2023 03:27-0500 Body temperature 97.52 [degF] MARIO MENSAH DO [facility] 05-15-2023 03:27-0500 Diastolic Blood Pressure Non-Invasive 54 mm[Hg] MARIO MENSAH DO [facility] 05-15-2023 03:27-0500 Heart rate 53 /min MARIO MENSAH DO [facility] 05-15-2023 03:27-0500 Reason For Taking VItal Signs MARIO MENSAH DO [facility] 05-15-2023 03:27-0500 Respiratory rate 18 /min MARIO MENSAH DO [facility] 05-15-2023 03:27-0500 Systolic Blood Pressure Non-Invasive 96 mm[Hg] MARIO MENSAH DO [facility] 05-14-2023 22:36-0500 Body temperature 97.7 [degF] MARIO MENSAH DO [facility] 05-14-2023 22:36-0500 Diastolic Blood Pressure Non-Invasive 60 mm[Hg] MARIO MENSAH DO [facility] 05-14-2023 22:36-0500 Heart rate 74 /min MARIO MENSAH DO [facility] 05-14-2023 22:36-0500 Reason For Taking VItal Signs MARIO MENSAH DO [facility] 05-14-2023 22:36-0500 Respiratory rate 18 /min MARIO MENSAH DO [facility] 05-14-2023 22:36-0500 Systolic Blood Pressure Non-Invasive 96 mm[Hg] MARIO MENSAH DO [facility] 05-14-2023 20:27-0500 Heart rate 66 /min MARIO MENSAH DO [facility] 05-14-2023 15:08-0500 Body height 127 cm MARIO MENSAH DO [facility] 05-14-2023 15:08-0500 Body weight 57.53 kg MARIO MENSAH DO [facility] 05-14-2023 15:08-0500 Body weight 35.67 kg/m2 MARIO MENSAH DO [facility] 05-14-2023 11:10-0500 Body temperature 96.62 [degF] MARIO MENSAH DO [facility] 05-14-2023 11:05-0500 Respiratory Rate - Anes 11 br/min MARIO MENSAH DO [facility] 05-14-2023 11:00-0500 Respiratory Rate - Anes 8 br/min MARIO MENSAH DO [facility] 05-14-2023 10:55-0500 Respiratory Rate - Anes 11 br/min MARIO MENSAH DO [facility] 05-14-2023 08:53-0500 Body height 127 cm MARIO MENSAH DO [facility] 05-14-2023 08:53-0500 Body temperature 97.7 [degF] MARIO MENSAH DO [facility] 05-14-2023 08:53-0500 Body weight 57.53 kg MARIO MENSAH DO [facility] 05-14-2023 08:53-0500 Heart rate 59 /min MARIO MENSAH DO [facility] 05-06-2023 13:12-0500 Blood Pressure Cuff Size MARIO MENSAH DO [facility] 05-06-2023 13:12-0500 Blood Pressure Location MARIO MENSAH DO [facility] 05-06-2023 13:12-0500 Blood Pressure Method MARIO MENSAH DO [facility] 05-06-2023 13:12-0500 Body height 147.3 cm MARIO MENSAH DO [facility] 05-06-2023 13:12-0500 Body weight 57.9 kg MARIO MENSAH DO [facility] 05-06-2023 13:12-0500 Body weight 26.69 kg/m2 MARIO MENSAH DO [facility] 05-06-2023 13:12-0500 Diastolic Blood Pressure Non-Invasive 70 mm[Hg] MARIO MENSAH DO [facility] 05-06-2023 13:12-0500 Heart rate 63 /min MARIO MENSAH DO [facility] 05-06-2023 13:12-0500 Systolic Blood Pressure Non-Invasive 132 mm[Hg] MARIO MENSAH DO [facility] 04-02-2023 15:20-0400 Body height 149.[address] Adelina Alvarenga Work Phone: [facility] 04-02-2023 15:20-0400 Body temperature 96.6 [degF] Dr. Adelina Alvarenga Work Phone: [facility] 04-02-2023 15:20-0400 Diastolic blood pressure 76 mm[Hg] Dr. Adelina Alvarenga Work Phone: [facility] 04-02-2023 15:20-0400 Heart rate 60 /min Dr. Adelina Alvarenga Work Phone: [facility] 04-02-2023 15:20-0400 Respiratory rate 18 /min Dr. Adelina Alvarenga Work Phone: [facility] 04-02-2023 15:20-0400 SaO2% (BldA) [Mass fraction] 99 % Dr. Adelina Alvarenga Work Phone: [facility] 04-02-2023 15:20-0400 Systolic blood pressure 145 mm[Hg] Dr. Adelina Alvarenga Work Phone: [facility] 03-10-2023 08:10-0400 Body temperature 97 [degF] Dr. Adelina Alvarenga Work Phone: [facility] 03-10-2023 08:10-0400 Diastolic blood pressure 62 mm[Hg] Dr. Adelina Alvarenga Work Phone: [facility] 03-10-2023 08:10-0400 Heart rate 71 /min Dr. Adelina Alvarenga Work Phone: [facility] 03-10-2023 08:10-0400 Respiratory rate 16 /min Dr. Adelina Alvarenga Work Phone: [facility] 03-10-2023 08:10-0400 SaO2% (BldA) [Mass fraction] 100 % Dr. Adelina Alvarenga Work Phone: [facility] 03-10-2023 08:10-0400 Systolic blood pressure 105 mm[Hg] Dr. Adelina Alvarenga Work Phone: [facility] 03-10-2023 06:45-0400 Body mass index (BMI) [Ratio] 24.8 kg/m2 Dr. Adelina Alvarenga Work Phone: [facility] 03-10-2023 06:45-0400 Body weight 55.[address] Adelina Alvarenga Work Phone: [facility] 12-11-2022 14:47-0400 Body height 149.[address] Adelina Alvarenga Work Phone: [facility] 12-11-2022 14:47-0400 Body mass index (BMI) [Ratio] 25.8 kg/m2 Dr. Adelina Alvarenga Work Phone: [facility] 12-11-2022 14:47-0400 Body weight 58.[address] Adelina Alvarenga Work Phone: [facility] 12-11-2022 14:47-0400 Diastolic blood pressure 86 mm[Hg] Dr. Adelina Alvarenga Work Phone: [facility] 12-11-2022 14:47-0400 Heart rate 56 /min Dr. Adelina Alvarenga Work Phone: [facility] 12-11-2022 14:47-0400 Respiratory rate 18 /min Dr. Adelina Alvarenga Work Phone: [facility] 12-11-2022 14:47-0400 Systolic blood pressure 143 mm[Hg] Dr. Adelina Alvarenga Work Phone: [facility] 12-30-2021 01:54-0400 Body mass index (BMI) [Ratio] 27.9 kg/m2 Dr. Adelina Alvarenga Work Phone: [facility] Work Phone: 11-30-2021 06:32-0400 Body mass index (BMI) [Ratio] 27.9 kg/m2 Dr. Adelina Alvarenga Work Phone: [facility] Work Phone: 10-30-2021 20:07-0400 Body mass index (BMI) [Ratio] 27.9 kg/m2 Dr. Adelina Alvarenga Work Phone: [facility] Work Phone: 10-17-2021 13:26-0400 Body height 149.[address] Adelina Alvarenga Work Phone: [facility] Work Phone: 10-17-2021 13:26-0400 Body weight 59.[address] Adelina Alvarenga Work Phone: [facility] Work Phone: 10-17-2021 13:26-0400 Diastolic blood pressure 68 mm[Hg] Dr. Adelina Alvarenga Work Phone: [facility] Work Phone: 10-17-2021 13:26-0400 Heart rate 56 /min Dr. Adelina Alvarenga Work Phone: [facility] Work Phone: 10-17-2021 13:26-0400 Respiratory rate 16 /min Dr. Adelina Alvarenga Work Phone: [facility] Work Phone: 10-17-2021 13:26-0400 Systolic blood pressure 128 mm[Hg] Dr. Adelina Alvarenga Work Phone: [facility] Work Phone: 10-17-2021 13:26-0400 Body height 149.[address] Adelina Alvarenga Work Phone: [facility] Work Phone: 10-17-2021 13:26-0400 Body weight 59.[address] Adelina Alvarenga Work Phone: [facility] Work Phone: 10-17-2021 13:26-0400 Diastolic blood pressure 68 mm[Hg] Dr. Adeilna Alvarenga Work Phone: [facility] Work Phone: 10-17-2021 13:26-0400 Heart rate 56 /min Dr. Adelina Alvarenga Work Phone: [facility] Work Phone: 10-17-2021 13:26-0400 Respiratory rate 16 /min Dr. Adelina Alvarenga Work Phone: [facility] Work Phone: 10-17-2021 13:26-0400 Systolic blood pressure 128 mm[Hg] Dr. Adelina Alvarenga Work Phone: [facility] Work Phone: 09-05-2021 17:11-0400 Body temperature 98.6 [degF] Dr. Adelina Alvarenga Work Phone: [facility] Work Phone: 09-05-2021 17:11-0400 Diastolic blood pressure 66 mm[Hg] Dr. Adelina Alvarenga Work Phone: [facility] Work Phone: 09-05-2021 17:11-0400 Heart rate 65 /min Dr. Adelina Alvarenga Work Phone: [facility] Work Phone: 09-05-2021 17:11-0400 Respiratory rate 18 /min Dr. Adelina Alvarenga Work Phone: [facility] Work Phone: 09-05-2021 17:11-0400 SaO2% (BldA) [Mass fraction] 93 % Dr. Adelina Alvarenga Work Phone: [facility] Work Phone: 09-05-2021 17:11-0400 Systolic blood pressure 122 mm[Hg] Dr. Adelina Alvarenga Work Phone: [facility] Work Phone: 09-04-2021 20:11-0400 Inhaled oxygen flow rate 2 L/min Dr. Adelina Alvarenga Work Phone: [facility] Work Phone: 09-04-2021 12:12-0400 Body height 149.[address] Adelina Alvarenga Work Phone: [facility] Work Phone: 09-04-2021 12:12-0400 Body mass index (BMI) [Ratio] 28 kg/m2 Dr. Adelina Alvarenga Work Phone: [facility] Work Phone: 09-04-2021 12:12-0400 Body weight 63.[address] Adelina Alvarenga Work Phone: [facility] Work Phone: 08-31-2021 00:42-0400 Body mass index (BMI) [Ratio] 27.9 kg/m2 Dr. Adelina Alvarenga Work Phone: [facility] Work Phone: 08-21-2021 09:39-0400 Body mass index (BMI) [Ratio] 27.4 kg/m2 Dr. Adelina Alvarenga Work Phone: [facility] Work Phone: 08-21-2021 09:39-0400 Body weight 61.[address] Adelina Alvarenga Work Phone: [facility] Work Phone: 08-21-2021 09:39-0400 Diastolic blood pressure 83 mm[Hg] Dr. Adelina Alvarenga Work Phone: [facility] Work Phone: 08-21-2021 09:39-0400 Respiratory rate 16 /min Dr. Adelina Alvarenga Work Phone: [facility] Work Phone: 08-21-2021 09:39-0400 Systolic blood pressure 150 mm[Hg] Dr. Adelina Alvarenga Work Phone: [facility] Work Phone: 08-21-2021 09:39-0400 Body height 149.[address] Adelina Alvarenga Work Phone: [facility] Work Phone: 08-21-2021 09:39-0400 Body mass index (BMI) [Ratio] 27.4 kg/m2 Dr. Adelina Alvarenga Work Phone: [facility] Work Phone: 08-21-2021 09:39-0400 Body weight 61.[address] Adelina Alvarenga Work Phone: [facility] Work Phone: 08-21-2021 09:39-0400 Diastolic blood pressure 83 mm[Hg] Dr. Adelina Alvarenga Work Phone: [facility] Work Phone: 08-21-2021 09:39-0400 Respiratory rate 16 /min Dr. Adelina Alvaregna Work Phone: [facility] Work Phone: 08-21-2021 09:39-0400 Systolic blood pressure 150 mm[Hg] Dr. Adelina Alvarenga Work Phone: [facility] Work Phone: 08-02-2021 10:10-0500 Body temperature 97.2 [degF] Dr. Adelina Alvarenga Work Phone: [facility] Work Phone: 08-02-2021 10:10-0500 Diastolic blood pressure 57 mm[Hg] Dr. Adelina Alvarenga Work Phone: [facility] Work Phone: 08-02-2021 10:10-0500 Heart rate 70 /min Dr. Adelina Alvarenga Work Phone: [facility] Work Phone: 08-02-2021 10:10-0500 Respiratory rate 16 /min Dr. Adelina Alvarenga Work Phone: [facility] Work Phone: 08-02-2021 10:10-0500 SaO2% (BldA) [Mass fraction] 94 % Dr. Adelina Alvarenga Work Phone: [facility] Work Phone: 08-02-2021 10:10-0500 Systolic blood pressure 86 mm[Hg] Dr. Adelina Alvarenga Work Phone: [facility] Work Phone: 08-02-2021 09:10-0500 Body temperature 97.2 [degF] Dr. Adelina Alvarnega Work Phone: [facility] Work Phone: 08-02-2021 09:10-0500 Diastolic blood pressure 57 mm[Hg] Dr. Adelina Alvarenga Work Phone: [facility] Work Phone: 08-02-2021 09:10-0500 Heart rate 70 /min Dr. Adelina Alvarenga Work Phone: [facility] Work Phone: 08-02-2021 09:10-0500 Respiratory rate 16 /min Dr. Adelina Alvarenga Work Phone: [facility] Work Phone: 08-02-2021 09:10-0500 SaO2% (BldA) [Mass fraction] 94 % Dr. Adelina Alvarenga Work Phone: [facility] Work Phone: 08-02-2021 09:10-0500 Systolic blood pressure 86 mm[Hg] Dr. Adelina Alvarenga Work Phone: [facility] Work Phone: 08-02-2021 07:25-0500 Body mass index (BMI) [Ratio] 27.6 kg/m2 Dr. Adelina Alvarenga Work Phone: [facility] Work Phone: 08-02-2021 07:25-0500 Body weight 61.[address] Adelina Alvarenga Work Phone: [facility] Work Phone: 08-02-2021 06:25-0500 Body mass index (BMI) [Ratio] 27.6 kg/m2 Dr. Adelina Alvarenga Work Phone: [facility] Work Phone: 08-02-2021 06:25-0500 Body weight 61.[address] Adelina Alvarenga Work Phone: [facility] Work Phone: 01-30-2021 19:35-0400 Body mass index (BMI) [Ratio] 27.9 kg/m2 Dr. Adelina Alvarenga Work Phone: [facility] Work Phone: 10-27-2020 13:01-0400 Body mass index (BMI) [Ratio] 27.9 kg/m2 Dr. Adelina Alvarenga Work Phone: [facility] Work Phone: 10-27-2020 13:01-0400 Body mass index (BMI) [Ratio] 27.9 kg/m2 Dr. Adelina Alvarenga Work Phone: [facility] Work Phone: 11-05-2016 15:10-0400 BMI (Body Mass Index) 27.67 kg/m2 [facility] Work Phone: 11-05-2016 15:10-0400 Body weight 62.14 kg [facility] Work Phone: 11-05-2016 15:10-0400 Height 149.86 cm [facility] Work Phone: 11-05-2016 15:10-0400 Weight 62.14 kg [facility] Work Phone: 05-09-2016 14:34-0500 BMI (Body Mass Index) 27.67 kg/m2 Cherry Casper RN [facility] Work Phone: 05-09-2016 14:34-0500 Body weight 62.14 [...] Work Phone: 05-09-2016 14:34-0500 Weight 62.14 kg Yina Vicentejuan [facility] Work Phone: 09-04-2015 10:00-0400 Body Temperature 97.7 [degF] [facility] Work Phone: 09-04-2015 10:00-0400 Pulse Oximetry 98 % [facility] Work Phone: 10-21-2013 14:05-0400 Body weight 73.55 kg [facility] Work Phone: 10-21-2013 14:05-0400 Height 149.86 cm [facility] Work Phone: 10-21-2013 14:05-0400 Weight 73.55 kg Yina Hayes [facility] Work Phone: 12-09-2011 09:57-0400 Heart rate 58 /min Cherry Casper RN [facility] Work Phone: 12-09-2011 09:57-0400 Heart rate 419 ms Cherry Casper RN [facility] Work Phone: Encounters Encounter Date Encounter Type Care Provider Facility Start: 01-17-2025 [facility] Start: 01-11-2025 [facility] Start: 10-15-2024 End: 10-15-2024 Patient encounter procedure Juliette Trejo DO -[facility] Work Phone: Start: 10-15-2024 End: 10-15-[address] Adelina Alvarenga DO Work Phone: [facility] Work Phone: Start: 08-23-2024 [facility] Start: 08-19-2024 End: 08-19-[address] Adelina Alvarenga DO Work Phone: [facility] Work Phone: Start: 08-19-2024 End: 08-19-[address] Adelina Alvarenga DO -Outpatient Breast Imaging Work Phone: Start: 08-19-2024 End: 08-19-2024 [facility] Start: 08-04-2024 End: 08-04-[address] Danny Treadwell MD -[facility] Work Phone: Start: 08-04-2024 End: 08-04-2024 [facility] Start: 07-16-2024 End: 07-16-2024 Postop follow up visit related to original px Wesley Bui MD Work Phone: [facility] [place] Comment on above: S/P laparoscopic fun doplication (Primary Dx) Start: 07-16-2024 [facility] Start: 07-13-2024 End: 07-13-[address] Adama Walters MD -Radiology, [facility] Work Phone: Start: 07-13-2024 End: 07-13-2024 [facility] Start: 07-03-2024 [facility] Start: 07-01-2024 End: 07-01-[address] Adelina Alvarenga DO -Laboratory Work Phone: Start: 07-01-2024 End: 07-01-2024 ambulatory [facility] Facility:[facility] Start: 06-29-2024 ambulatory [facility] Facility:[facility] Start: 06-24-2024 ambulatory [facility] Facility:[facility] Start: 06-23-2024 End: 06-23-[address] Adelina Alvarenga DO -Laboratory Work Phone: Start: 06-23-2024 End: 06-23-2024 Patient encounter procedure Juliette Trejo DO [facility] Work Phone: Start: 06-23-2024 End: 06-23-2024 ambulatory [facility] Facility:[facility] Start: 06-15-2024 End: 06-18-2024 Evaluation and management of inpatient Wesley Bui MD Work Phone: [facility] Comment on above: Paraesophageal herni a Start: 06-03-2024 ambulatory [facility] Facility:[facility] Start: 05-21-2024 ambulatory [facility] Facility:[facility] Start: 05-21-2024 End: 05-21-2024 Office consultation new/estab patient 80 min Anton Tyson FIELD SERVICE CONSULTANT-[facility] Work Phone: Pre-Procedure Evaluation and Assessment [facility] Comment on above: Preop exam for inter nal medicine (Primary Dx); Gastroesophageal reflux disease with esophagitis without hemorrhage; Paraesophageal hernia; Factor V Leiden; Bicuspid aortic valve; Essential hypertension; Mixed hyperlipidemia; History of TIA (transient ischemic attack); Postoperative hypothyroidism Start: 05-21-2024 End: 05-21-2024 Patient encounter status Anton Tyson FIELD SERVICE CONSULTANT-[employer]OR Work Phone: [facility] Work Phone: Start: 05-21-2024 [facility] Start: 05-21-2024 Encounter for other preprocedural examination ANTON TYSON Facility:[facility] Start: 05-14-2024 End: 05-14-2024 Office outpatient visit 25 minutes Wesley Bui MD Work Phone: [facility] [place] Comment on above: Gastroesophageal ref lux disease with esophagitis without hemorrhage (Primary Dx) Start: 05-14-2024 ambulatory [facility] Facility:[facility] Start: 04-16-2024 End: 04-16-2024 Patient encounter procedure [facility] [place] Comment on above: Gastroesophageal ref lux disease with esophagitis without hemorrhage (Primary Dx) Start: 04-16-2024 ambulatory [facility] Facility:[facility] Start: 04-13-2024 End: 04-13-2024 ambulatory [facility] Facility:[facility] Start: 04-01-2024 ambulatory [facility] Facility:[facility] Start: 04-01-2024 End: 04-01-2024 Subsequent hospital visit by physician Wesley Bui MD Work Phone: [facility] [place] Comment on above: Arrived Start: 03-26-2024 End: 03-26-2024 Office outpatient new 30 minutes Wesley Bui MD Work Phone: [facility] [place] Comment on above: Gastroesophageal ref lux disease with esophagitis without hemorrhage (Primary Dx) Start: 03-26-2024 ambulatory [facility] Facility:[facility] Start: 03-22-2024 End: 03-22-2024 Emergency department patient visit [facility] Facility:[facility] Start: 03-11-2024 End: 03-11-2024 ambulatory Adelina Malys Facility:[facility] Start: 03-04-2024 End: 03-04-2024 Office outpatient visit 25 minutes Agatha Bernabe MD Work Phone: [facility] Comment on above: Paraesophageal herni a (Primary Dx); Gastroesophageal reflux disease with esophagitis without hemorrhage Start: 03-04-2024 End: 03-04-2024 [facility] Start: 02-11-2024 Encounter for other preprocedural examination AGATHA BERNABE [facility] Start: 02-11-2024 ambulatory [facility] Facility: [facility] Start: 02-11-2024 End: 02-11-2024 Preprocedural examination done Agatha Bernabe MD Work Phone: [facility] Start: 02-11-2024 End: 02-11-2024 Subsequent hospital visit by physician Agatha Bernabe MD Work Phone: [facility] Comment on above: Paraesophageal herni a [K44.9] Start: 01-30-2024 End: 01-30-2024 ambulatory Adelina Colette Facility:[facility] Start: 01-14-2024 Telephone encounter Agatha mcconnell MD Work Phone: [facility] Comment on above: Appointment (EGD BRA VO) Start: 01-14-2024 End: 01-14-2024 Office consultation new/estab patient 60 min Agatha Bernabe MD Work Phone: [facility] Comment on above: Paraesophageal herni a (Primary Dx); Gastroesophageal reflux disease without esophagitis Start: 01-14-2024 End: 01-14-2024 [facility] Start: 01-07-2024 End: 01-07-2024 Patient encounter procedure Luan Chapa MD Work Phone: [facility] Comment on above: Gastroesophageal ref lux disease without esophagitis (Primary Dx); Hiatal hernia Start: 01-07-2024 End: 01-07-2024 ambulatory LUAN CHAPA Facility[facility] Start: 12-22-2023 Telephone encounter Luan Chapa MD Work Phone: [facility] Comment on above: Appointment Start: 08-19-2023 End: 08-19-[address] Adelina Alvarenga Work Phone: [facility] Work Phone: Start: 08-19-2023 End: 08-19-[address] Adelina Alvarenga Work Phone: [facility]-Outpatient Bone Densitometry Work Phone: Start: 06-24-2023 End: 06-24-[address] Adelina Alvarenga Work Phone: [facility] Work Phone: Start: 06-24-2023 End: 06-24-[address] Adelina Alvarenga Work Phone: [facility]-Laboratory, Specimen Work Phone: Start: 06-18-2023 Non-patient / Non-visit Dr. Deja Alvarenga Work Phone: [facility] Start: 06-18-2023 End: 06-18-[address] Adelina Alvarenga Work Phone: [facility]-Cardiovascular Services Work Phone: Start: 06-11-2023 End: 06-11-[address] Adelina Alvarenga Work Phone: [facility] Work Phone: Start: 06-11-2023 End: 06-11-[address] Adelina Alvarenga Work Phone: [facility] Work Phone: Start: 06-11-2023 End: 06-11-[address] Adelina Alvarenga Work Phone: [facility]-Laboratory Work Phone: Start: 06-11-[address] [facility] Start: 05-14-2023 End: 05-15-2023 ambulatory MARIO MENSAH DO Facility:[facility] Start: 05-14-2023 End: 05-15-2023 Observation [address]IO MENSAH DO [facility] Start: 05-06-2023 End: 05-07-[address] ADELINA ALVARENGA DO Facility:[facility] Start: 05-06-2023 End: 05-06-2023 Admission to establishment MARIO MENSAH DO [facility] Start: 04-28-2023 End: 04-28-[address] [facility] Start: 04-07-2023 End: 04-07-2023 Non-patient / Non-visit Dr. Adelina Alvarenga Work Phone: [facility] Work Phone: Start: 04-07-2023 End: 04-07-[address] Adelina Alvarenga Work Phone: [facility] Work Phone: Start: 04-07-2023 End: 04-07-[address] Adelina Alvarenga Work Phone: [facility]-Pulmonary Services/Neurology Work Phone: Start: 04-02-2023 End: 04-02-2023 Emergency department patient visit Dr. Adelina Alvarenga Work Phone: [facility]-Emergency Department Work Phone: Start: 04-02-2023 End: 04-02-[address] Adelina Alvarenga Work Phone: [facility] Work Phone: Start: 03-10-2023 Non-patient / Non-visit Dr. Deja Alvarenga Work Phone: [facility] Start: 03-10-2023 End: 03-10-2023 Admission to same day surgery center Dr. Adelina Alvarenga Work Phone: [facility]-Endoscopy Work Phone: Start: 01-08-2023 End: 01-08-[address] Adelina Alvarenga Work Phone: [facility] Work Phone: Start: 01-08-2023 End: 01-08-[address] [facility] Work Phone: Start: 12-18-2022 End: 12-18-[address] Adel[facility] Start: 12-18-[address] Adelina Alvarenga Work Phone: [facility]-Physical Therapy Work Phone: Start: 12-17-2022 End: 12-17-[address] Adelina Alvarenga Work Phone: [facility] Work Phone: Start: 12-17-2022 End: 12-17-[address] Adelina [facility]renga [facility] Work Phone: Start: 12-11-2022 End: 12-11-[address] Adelina Alvarenga Work Phone: [facility] Work Phone: Start: 12-09-[address] Adelina Alvarenga [facility] Start: 12-04-2022 End: 12-04-[address] Adelina Alvarenga Work Phone: [facility] Work Phone: Start: 12-04-2022 End: 12-04-[address] Adelina Alvarenga Work Phone: [facility]-Laboratory Work Phone: Start: 11-21-[address] Adelina Alvarenga Work Phone: [facility]-Physical Therapy Start: 11-20-2022 End: 11-20-[address] Adelina Alvarenga Work Phone: [facility] Work Phone: Start: 11-20-2022 End: 11-20-[address] Adelina Alvarenga Work Phone: [facility] G[facility] Start: 10-09-2022 Non-patient / Non-visit Dr. Deja Alvarenga Work Phone: [facility] Start: 10-09-2022 End: 10-09-[address] Adelina Alvarenga Work Phone: [facility]-Cardiovascular Services Start: 10-07-2022 End: 10-07-[address] Adelina Alvarenga Work Phone: [facility]-Physical Therapy Start: 09-25-[address] Adel[facility]ga [facility] Start: 09-16-2022 End: 09-16-[address] Adelina Alvarenga Work Phone: [facility] Work Phone: Start: 09-16-2022 End: 09-16-[address] Adelina Alvarenga Work Phone: [facility]-Laboratory Start: 08-19-2022 End: 08-19-[address] Adelina Alvarenga Work Phone: [facility] Work Phone: Start: 08-19-2022 End: 08-19-2022 Patient encounter procedure Dr. Adelina Alvarenga Work Phone: [facility], [facility] Start: 07-23-2022 End: 07-23-[address] Adelina Alvarenga Work Phone: [facility] Start: 07-10-2022 End: 07-10-[address] Adelina Alvarenga Work Phone: [facility] Start: 06-26-2022 End: 06-26-[address] Adelina Alvarenga Work Phone: [facility] Work Phone: Start: 06-26-2022 End: 06-26-[address] Adelina Alvarenga Work Phone: [facility] Start: 05-07-2022 End: 05-07-[address] Adelina Alvarenga Work Phone: [facility] Work Phone: Start: 05-07-2022 End: 05-07-[address] Adelina Alvarenga Work Phone: [facility] Start: 04-22-2022 End: 04-22-[address] Adelina Alvarenga Work Phone: [facility] Start: 03-05-2022 End: 03-05-[address] Adelina Alvarenga Work Phone: [facility] Work Phone: Start: 03-05-2022 End: 03-05-[address] Adelina Alvarenga Work Phone: [facility] Start: 02-19-2022 End: 02-19-[address] Adelina Alvarenga Work Phone: [facility] Work Phone: Start: 02-19-2022 End: 02-19-[address] Adelina Alvarenga Work Phone: [facility] Start: 01-29-2022 End: 01-29-[address] Adelina Alvarenga Work Phone: [facility] Work Phone: Start: 01-29-2022 End: 01-29-[address] Adelina Alvarenga Work Phone: [facility] Start: 01-23-2022 End: 01-23-[address] Adelina Alvarenga Work Phone: [facility] Start: 12-28-2021 End: 12-28-[address] [facility] Start: 12-24-2021 End: 12-30-[address] Adelina Alvarenga Work Phone: [facility] Start: 10-31-2021 End: 10-31-[address] Adelina Alvarenga Work Phone: [facility] Start: 10-17-2021 End: 10-17-[address] Adelina Alvarenga Work Phone: [facility] Start: 10-17-2021 End: 10-17-[address] Adelina Alvarenga Work Phone: [facility] Start: 10-12-2021 End: 10-12-[address] Adelina Alvarenga Work Phone: [facility] Start: 10-03-2021 End: 10-03-[address] Adelina Alvarenga Work Phone: [facility] Start: 10-03-[address] Adel[facility] Start: 09-19-2021 End: 09-19-[address] Adelina Alvarenga Work Phone: [facility], [facility] Start: 09-12-2021 End: 09-12-[address] Adelina Alvarenga Work Phone: [facility] Start: 09-05-2021 Non-patient / Non-visit Dr. Deja Alvarenga Work Phone: [facility] Start: 09-04-2021 End: 09-05-2021 Evaluation and management of inpatient Dr. Adelina Alvarenga Work Phone: [facility] Start: 09-04-2021 Non-patient / Non-visit Dr. Deja Alvarenga Work Phone: [facility] Start: 09-03-2021 Non-patient / Non-visit Dr. Deja Alvarenga Work Phone: [facility] Start: 08-21-2021 End: 08-30-[address] Adelina Alvarenga Work Phone: [facility] Start: 08-21-[address] Adelina Alvarenga Work Phone: [facility] Start: 08-21-2021 End: 08-21-[address] Adelina Alvarenga Work Phone: [facility] Start: 08-16-2021 End: 08-16-[address] Adelina Alvarenga Work Phone: [facility] Start: 08-14-2021 End: 08-14-[address] Adelina Alvarenga Work Phone: [facility] D[facility] Start: 08-02-2021 Non-patient / Non-visit Dr. Deja Alvarenga Work Phone: [facility] Start: 08-02-2021 End: 08-02-2021 Admission to same day surgery center Dr. Adelina Alvarenga Work Phone: [facility] Start: 07-09-2021 End: 07-09-[address] Adelina Alvarenga Work Phone: [facility] Start: 06-22-2021 End: 06-22-[address] Adelina Alvarenga Work Phone: [facility] Start: 06-15-2021 End: 06-15-[address] Adelina Alvarenga Work Phone: [facility] Start: 06-05-2021 End: 06-05-[address] Adelina Alvarenga Work Phone: [facility], Specimen Start: 05-07-[address] Adelina Alvarenga Work Phone: [facility], [facility] Start: 12-01-2018 End: 12-01-2018 Emergency department patient visit LUAN LI [facility] Procedures Date Procedure Procedure Detail Performing Clinician Start: 10-14-2024 Esophageal manometry Rod Navarrete MD Work Phone: Start: 08-19-2024 Screening mammography Minoo Alvarenga DO Work Phone: Start: 07-13-2024 X-ray of cervical spine Dr. Adelina Alvarenga DO Work Phone: Start: 07-13-[address] Adelina Alvarenga DO Work Phone: Start: 07-01-2024 Measurement of renal function Dr. Adelina Alvarenga DO Work Phone: Comment on above: GFR Calc Start: 07-01-2024 Vitamin D, 25-hydrox y measurement Dr. Adelina Alvarenga DO Work Phone: Comment on above: Vitamin D 25(OH) Sta tus Range Deficiency <20 ng/mL (50nmol/L) Insufficiency 20 - 30 ng/mL (50 - 75 nmol/L) Sufficiency 30 - 100 ng/mL (75 - 250 nmol/L) Toxicity >100 ng/mL (>250 nmol/L) Start: 06-18-2024 Assay of magnesium Jeovanny Ingram MD Work Phone: Start: 06-17-2024 TROPONIN 1 HOUR Garfield Ingram MD Work Phone: Start: 06-17-2024 HIGH SENSITIVITY TRO PONIN I X2 Garfield Ingram MD Work Phone: Start: 06-17-2024 TROPONIN I INITIAL Jeovanny Ingram MD Work Phone: Start: 06-17-2024 Radiologic exam ches t single view Garfield Ingram MD Work Phone: Start: 06-17-2024 CBC AND ELECTRONIC DIFF Ayesha Garcia MD Work Phone: Start: 06-17-2024 Complete blood count with white cell differential, automated Ayesha Garcia MD Work Phone: Start: 06-17-2024 Electrolyte panel Ayesha Garcia MD Work Phone: Start: 06-16-2024 Prothrombin time Jimmy Lama [facility] Start: 06-16-2024 CBC AND ELECTRONIC DIFF Ayesha Garcia MD Work Phone: Start: 06-16-2024 Complete blood count with white cell differential, automated Ayesha Garcia MD Work Phone: Start: 06-16-2024 Electrolyte panel Ayesha Garcia MD Work Phone: Start: 06-15-2024 CARDIAC RHYTHM Other Ot her OT Start: 06-15-2024 End: 06-15-2024 Laps rpr paraesphgl hrna incl fundplsty w/o mesh Wesley Bui MD Work Phone: Start: 05-21-2024 CBC AND ELECTRONIC DIFF Anton Tyson FIELD SERVICE CONSULTANT-PUBLICATIONS EDITOR Work Phone: Start: 05-21-2024 Complete blood count with white cell differential, automated Anton Tyson FIELD SERVICE CONSULTANT-PUBLICATIONS EDITOR Work Phone: Start: 05-21-2024 Creatinine blood Anton Gregorio Tyson FIELD SERVICE CONSULTANT-PUBLICATIONS EDITOR Work Phone: Start: 04-01-2024 INTERVENTIONAL UPPER ENDOSCOPY Wesley Bui MD Work Phone: Start: 02-11-2024 Esophagoscp rig delgado soral hypopharynx crv shana Bernabe MD Work Phone: Start: 08-19-2023 Dual energy X-ray absorptiometry Dr. Adelina Alvarenga Work Phone: Start: 08-19-2023 Screening mammography Minoo Alvarenga Work Phone: Start: 06-24-[address] Adelina Alvarenga Work Phone: Start: 06-24-2023 Investigation of transfusion reaction Dr. Adelina Alvarenga Work Phone: Start: 06-24-2023 Microbial culture, routine Dr. Adelina Alvarenga Work Phone: Start: 06-18-2023 Cardiovascular stres s test using pharmacologic stress agent Dr. Adelina Alvarenga Work Phone: Start: 04-07-2023 Plain chest X-ray Dr. Sacha Alvarenga Work Phone: Start: 04-02-2023 Plain x-ray of pelvi s and lower extremity Dr. Adelina Alvarenga Work Phone: Start: 03-10-2023 Colonoscopy Agatha mcconnell MD Work Phone: Start: 01-08-2023 MRI of lumbar spine Dr. Adelina Alvarenga Work Phone: Start: 12-17-2022 X-ray of lumbosacral spine Dr. Adelina Alvarenga Work Phone: Start: 11-20-2022 Diagnostic radiograp hy of abdomen Dr. Adelina Alvarenga Work Phone: Start: 08-19-2022 Plain X-ray of shoulder Dr. Adelina Alvarenga Work Phone: Start: 07-10-2022 Screening mammography Minoo Alvarenga Work Phone: Start: 01-29-2022 Plain x-ray of pelvi s and lower extremity Dr. Adelina Alvarenga Work Phone: Start: 12-28-2021 CT of head without contrast Dr. Adelina Alvarenga Work Phone: Start: 10-17-2021 X-ray of cervical spine Dr. Adelina Alvarenga Work Phone: Start: 09-19-2021 Radiography of thora cic spine Dr. Adelina Alvarenga Work Phone: Start: 09-04-2021 Marcos fundoplication Minoo Alvarenga Work Phone: Start: 09-03-2021 End: 09-03-[address] Adelina Alvarenga Work Phone: Start: 08-14-2021 Dual energy X-ray absorptiometry Dr. Adelina Alvarenga Work Phone: Start: 08-01-2021 End: 08-01-[address] Adelina Alvarenga Work Phone: Start: 07-09-2021 Screening mammography Minoo Alvarenga Work Phone: Start: 05-07-2021 Computed tomography of abdomen and pelvis with contrast Dr. Adelina Alvarenga Work Phone: Start: 10-16-2018 Colonoscopy Luan tuttle MD Work Phone: Start: 05-20-2017 Lipid 1996 panel - S clement or Plasma Luan Chapa MD Work Phone: Start: 05-20-2017 End: 05-21-2017 *Hepatic [...] medications Cinthia Arteaga Start: 11-05-2016 End: 11-05-2016 DJN Jacinto Laureano MD Work Phone: Start: 11-05-2016 End: 12-10-2016 Echocardiography Jacinto Laureano MD Work Phone: Start: 11-05-2016 End: 11-05-2016 Follow Up Appt 6 months Jacinto Laureano MD Work Phone: Start: 11-05-2016 End: 12-30-2016 Stress Echocardiogram (treadmill) Jacinto aLureano MD Work Phone: Start: 11-05-2016 End: 11-05-2016 [...] MD Work Phone: Start: 10-10-2015 End: 10-10-2015 CLAUDIA Laureano MD Work Phone: Start: 10-10-2015 End: 10-26-2015 Echocardiography Jacinto Laureano MD Work Phone: Start: 10-10-2015 End: 10-10-2015 Follow Up Appt 6 months Jacinto Laureano MD Work Phone: Start: 10-10-2015 End: 11-15-2015 Stress Echocardiogram (treadmill) Jacinto Laureano MD Work Phone: Start: 10-10-2015 End: 10-10-2015 CLAUDIA Laureano MD Work Phone: Start: 10-10-2015 End: [...] ANTIONETTE Wilson MD Start: 01-11-2013 End: 2013 Echocardiography Omar Wilson MD Start: 01-11-2013 End: 01-11-2013 Follow Up Appt 1 year Omar Wilson MD Start: 01-11-2013 End: 01-11-2013 ANTIONETTE Wilson MD Start: 01-11-2013 End: 2013 Echocardiography [...] Appt 6 months Melvin Flowers MD Start: 08-01-2005 Lipid 1996 panel - S clement or Plasma Luan Chapa MD Work Phone: Carpal tunnel syndro me (disorder) MARIO MENSAH DO Comment on above: BILATERAL Cholecystectomy MARIO CESPEDES S DO Colonoscopy MARIO MENSAH D O Fracture of bone (disorder) MARIO MENSAH DO Comment on above: fracture of the back procedure Hiatal hernia (disorder) YUNG MENSAH DO Thumb joint structur e (body structure) MARIO MENSAH DO Comment on above: BILATERAL Thyroidectomy MARIO MENSAH DO Viral antigen assay Dr. Adelina Alvarenga Work Phone: Plan of Treatment Date Care Activity Detail Author Start: 03-10-2028 Screening for malignant neoplasm of colon [facility] Start: 2026 RSV Vaccine (1 - 1-dose 75+ series) RSV Vaccine (1 - 1-dose 75+ series) [facility] Start: 03-04-2025 BP Controlled (<130/80) BP Controlled (<130/80) [facility] in Start: 08-23-2024 End: 08-23-2024 Telemedicine consultation with patient 08/23/2024 11:00 AM EDT Telemedicine [facility] [address] [place] [phone] Mariaa Worrell, FIELD SERVICE CONSULTANT-PUBLICATIONS EDITOR [address] [place] [address] [facility]astro[facility] Start: 07-16-2024 End: 07-16-2024 Patient encounter procedure 07/16/2024 12:30 PM EST Office Visit [facility] [address] [place], [place] [id number] Wesley Bui MD [address] [place] [phone] [facility] Start: 06-29-2024 End: 06-29-2024 Telemedicine consultation with patient 06/29/2024 10:00 AM EST Telemedicine [facility] [address] [place], [place] [id number] Latoya Preciado, RD [address] [place] [address] General [facility]astro[facility] Start: 06-24-2024 End: 06-24-2024 Telemedicine consultation with patient 06/24/2024 11:45 AM EST Telemedicine [facility] [address] [place] [phone] Mariaa Worrell, FIELD SERVICE CONSULTANT-PUBLICATIONS EDITOR [address] [place] [address] General [facility] Gastrointestinal [facility] Start: 06-15-2024 End: 06-15-2024 Admission to same day surgery center 06/15/2024 11:19 AM EST - 06/15/2024 1:59 PM EST Surgery [facility] [address] [place] [address] Wesley Bui MD [address] [place] [address] REVISION REPAIR HERNIA PARAESOPHAGEAL LAPAROSCOPIC W/O MESH [facility] Comment on above: REVISION REPAIR HERNIA PARAESOPHAGEAL LA PAROSCOPIC W/O MESH Start: 06-15-2024 End: 06-15-2024 Laps rpr paraesphgl hrna incl fundplsty w/o mesh REVISION REPAIR HERNIA PARAESOPHAGEAL LAPAROSCOPIC W/O MESH Paraesophageal hernia 06/15/2024 11:19 AM EST [facility] DAY [facility] Start: 06-15-2024 Subsequent hospital visit by physician 06/15/2024 11:19 AM EST Hospital Encounter [facility] [address] [place] [address] Wesley Bui MD [address] [address] Paraesophageal hernia [facility] Comment on above: Paraesophageal hernia Start: 06-10-2024 End: 06-10-2024 Patient encounter procedure 06/10/2024 10:30 AM EST Office Visit [facility] 1 [place], [place] [id number] Agatha Bernabe MD [address] [id number] 3 mo f/u [facility] Comment on above: 3 mo f/u Start: 06-03-2024 End: 06-03-2024 Telemedicine consultation with patient 06/03/2024 3:00 PM EST Telemedicine [facility] [address] [place] [address] Latoya Preciado, RD [address] [place] [phone] General and Gastrointestinal [facility] Start: 05-14-2024 End: 05-14-2024 Patient encounter procedure 05/14/2024 11:00 AM EST Office Visit [facility] [address] [place], [place] [phone] Wesley Bui MD [address] [place] [address] General [facility] Start: 04-16-2024 End: 04-16-2024 Patient encounter procedure 04/16/2024 7:30 AM EST Office Visit [facility] [address] [place], [place] [phone] General [facility] Start: 04-02-2024 End: 03-26-2025 INTERVENTIONAL UPPER ENDOSCOPY INTERVENTIONAL UPPER ENDOSCOPY GI/Bronch Routine Gastroesophageal reflux disease with esophagitis without hemorrhage Expected: 04/02/2024, Expires: 03/26/2025 [facility] Comment on above: Expected: 04/02/2024, Expires: Start: 04-01-2024 End: 04-01-2024 Patient encounter procedure 04/01/2024 12:30 PM EDT Appointment [facility] [address] [place] [phone] Wesley Bui MD [address] [place] [address] [facility] Start: 03-04-2024 End: 03-04-2024 Patient encounter procedure 03/04/2024 11:00 AM EDT Office Visit [facility] 1 [place] [address] Agatha Bernabe MD 1 [facility][1] [address] [place] [address] F/U - EGD Cruz [facility] Comment on above: F/U - EGD Cruz Start: 02-11-2024 End: 02-11-2024 Patient encounter procedure 02/11/2024 2:30 PM EDT Appointment [facility] 1 [place] [address] [facility] Start: 02-11-2024 End: 01-13-2025 EGD - THERAPEUTIC, EUS, OR TUBE INTERVENTIONS EGD - THERAPEUTIC, EUS, OR TUBE INTERVENTIONS Endoscopy Routine Paraesophageal hernia Expected: 02/11/2024, Expires: 01/13/2025 [facility] Work Phone: Comment on above: Expected: 02/11/2024, Expires: Start: 02-01-2024 Covid-19 Vaccine ( season) Covid-19 Vaccine ( season) [facility] Start: 02-01-2024 Covid-19 Vaccine ( season) Covid-19 Vaccine ( season) [facility] Start: 02-01-2024 Influenza vaccination Influenza Vaccine (#1) [facility] Start: 01-29-2024 End: 01-29-2024 Patient encounter procedure 01/29/2024 8:30 AM EDT Office Visit [facility] 1 [place] [address] Agatha Bernabe MD [address] [address] New Patient - Hiatal Hernia - Papouras Referral [facility] Comment on above: New Patient - Hiatal Hernia - Papouras R eferral Start: 01-07-2024 End: 01-07-2024 Patient encounter procedure 01/07/2024 11:00 AM EDT Office Visit [facility] 1 [facility] 3rd Floor [place], [place] [phone] Luan Chapa MD [address] [facility] [address] [place] [address] HBC HIATAL HERNIA [facility] Comment on above: HBC HIATAL HERNIA Start: 10-17-2023 Screening for malignant neoplasm of colon [facility] Start: 06-24-2023 Anaerobic microbial culture Anaerobic Culture [facility] Start: 06-02-2023 Advance Directive Discussion Advance Directive Discussion [facility] Start: 06-02-2023 Behavioral Health Screening Behavioral Health Screening [facility] Start: 04-02-2023 [facility] Start: 03-10-2023 Colsc flx w/rmvl of tumor polyp lesion snare tq COLONOSCOPY W/LESION REMOVAL [facility] Start: 03-10-2023 Patient discharge [facility] Start: 01-31-2023 Covid-19 Vaccine () Covid-19 Vaccine () [facility] Start: 11-20-2022 General foods mix RAST test [facility] Start: 11-20-2022 [facility] Start: 05-20-2022 Lipid panel Lipid Screening [facility] Start: 09-05-2021 Patient discharge [facility] Work Phone: Start: 09-04-2021 Anes intraperitoneal upper abdomen w/laps nos ANESTH SURG UPPER ABDOMEN [facility] Work Phone: Start: 09-04-2021 Laps rpr paraesphgl hrna incl fundplsty w/o mesh LAP PARAESOPHAG ANGIE REPAIR [facility] Work Phone: Start: 09-04-2021 Following clinical pathway protocol [facility] Work Phone: Start: 09-04-2021 Ambulation without limitation [facility] Work Phone: Start: 09-04-2021 Application of intermittent pneumatic compression device [facility] Work Phone: Start: 09-04-2021 Following clinical pathway protocol [facility] Work Phone: Start: 09-04-2021 Incentive spirometry [facility] Work Phone: Start: 09-04-2021 Measuring intake and output [facility] Work Phone: Start: 09-04-2021 Taking patient vital signs [facility] Work Phone: Start: 09-04-2021 [facility] Work Phone: Start: 09-04-2021 Admission procedure [facility] Work Phone: Start: 08-16-2021 Patient referral [facility] Work Phone: Start: 08-02-2021 Egd transoral biopsy single/multiple EGD BIOPSY SINGLE/MULTIPLE [facility] Work Phone: Start: 08-02-2021 Patient discharge [facility] Work Phone: Start: 10-17-2019 Screening for malignant neoplasm of colon COLORECTAL CANCER SCREENING DISCUSSION [facility] Start: 06-16-2017 End: 06-16-2017 Appointment Appointment [facility] [employer] Work Phone: Start: 05-20-2017 End: 11-20-2016 *Hepatic Function Panel *Hepatic Function Panel [facility] [email or web address] Work Phone: Start: 05-20-2017 End: 11-20-2016 Lipid panel [AGGREGATE] *Lipid Profile CC PCP [facility] Work Phone: Start: 05-20-2017 End: 05-21-2017 *Hepatic Function Panel *Hepatic Function Panel [facility] Work Phone: Start: 05-20-2017 End: 05-21-2017 Lipid panel [AGGREGATE] *Lipid Profile CC PCP [facility] Work Phone: Start: 11-11-2016 End: 11-18-2016 *Hepatic Function Panel *Hepatic Function Panel [facility] Work Phone: Start: 11-11-2016 End: 11-18-2016 Lipid panel [AGGREGATE] *Lipid Profile CC PCP [facility] Work Phone: Start: 11-11-2016 End: 11-18-2016 *Hepatic Function Panel *Hepatic Function Panel [employer] [facility] [employer] Work Phone: Start: 11-11-2016 End: 11-18-2016 Lipid panel [AGGREGATE] *Lipid Profile CC PCP [employer] [facility] [employer] Work Phone: Start: 11-05-2016 End: 11-05-2016 Appointment Appointment [employer] Work Phone: Start: 11-05-2016 End: 11-05-2016 DJMaggie TAYLOR [employer] [facility] [employer] Work Phone: Start: 11-05-2016 End: 11-05-2016 Echocardiography Echocardiogram (complete) [employer] [facility] [employer] Work Phone: Start: 11-05-2016 End: 11-05-2016 Follow Up Appt 6 months Follow Up Appt 6 months [employer] Phone: Start: 11-05-2016 End: 11-05-2016 Stress Echocardiogram (treadmill) Stress Echocardiogram (treadmill) [employer] [facility] [employer] Work Phone: Start: 11-05-2016 End: 11-05-2016 DJMaggie DJN [employer] [facility] [employer] Work Phone: Start: 11-05-2016 End: 11-06-2016 Echocardiography Echocardiogram (complete) [employer] Phone: Start: 11-05-2016 End: 11-05-2016 Follow Up Appt 6 months Follow Up Appt 6 months [facility] [employer] Work Phone: Start: 11-05-2016 End: 11-06-2016 Stress Echocardiogram (treadmill) Stress Echocardiogram (treadmill) [employer] [facility] [employer] Work Phone: Start: 05-09-2016 End: 05-13-2016 *Hepatic Function Panel *Hepatic Function Panel [employer] [facility] [employer] Work Phone: Start: 05-09-2016 End: 05-09-2016 CLAUDIA GONZALEZN [employer] [facility] [employer] Work Phone: Start: 05-09-2016 End: 05-09-2016 Follow Up Appt 6 months Follow Up Appt 6 months [facility] Work Phone: Start: 05-09-2016 End: 05-13-2016 Lipid panel [AGGREGATE] *Lipid Profile CC PCP [facility] Work Phone: Start: 05-09-2016 End: 05-13-2016 *Hepatic Function Panel *Hepatic Function Panel [employer] [facility] Work Phone: Start: 05-09-2016 End: 05-09-2016 CLAUDIA TAYLOR [facility] Work Phone: Start: 05-09-2016 End: 05-09-2016 Follow Up Appt 6 months Follow Up Appt 6 months [employer] Work Phone: Start: 05-09-2016 End: 05-13-2016 Lipid panel [AGGREGATE] *Lipid Profile CC PCP [facility] Work Phone: Start: 2016 Pneumococcal vaccination PNEUMOCOCCAL VACCINE SERIES (1 of 1 - PCV) [facility] Start: 2016 Pneumococcal Vaccine: 65+ (2 of 2 - PCV) Pneumococcal Vaccine: 65+ (2 of 2 - PCV) [facility] Start: 2016 Screening for osteoporosis Bone Density Screening [facility] Start: 10-10-2015 End: 10-10-2015 CLAUDIA TAYLOR [facility] [employer] Work Phone: Start: 10-10-2015 End: 10-10-2015 Echocardiography Echocardiogram (complete) [facility] Work Phone: Start: 10-10-2015 End: 10-10-2015 Follow Up Appt 6 months Follow Up Appt 6 months [facility] Work Phone: Start: 10-10-2015 End: 10-10-2015 Stress Echocardiogram (treadmill) Stress Echocardiogram (treadmill) [facility] Work Phone: Start: 10-10-2015 End: 10-10-2015 CLAUDIA TAYLOR [facility] Work Phone: Start: 10-10-2015 End: 10-10-2015 Echocardiography Echocardiogram (complete) [facility] Work Phone: Start: 10-10-2015 End: 10-10-2015 Follow Up Appt 6 months Follow Up Appt 6 months [facility] Work Phone: Start: 10-10-2015 End: 10-10-2015 Stress Echocardiogram (treadmill) Stress Echocardiogram (treadmill) [facility] Work Phone: Start: 09-04-2015 End: 09-08-2015 INR Coag RelTime (PPP) *PT/INR - Standing Order [facility] Work Phone: Start: 09-04-2015 End: 09-08-2015 Coagulation factor induced.INR assay in platelet poor plasma *PT/INR - Standing Order [facility] Work Phone: Start: 10-18-2014 End: 10-18-2014 CLAUDIA CLAUDIA [facility] Work Phone: Start: 10-18-2014 End: 10-18-2014 Follow Up Appt 1 year Follow Up Appt 1 year [facility] Work Phone: Start: 10-18-2014 End: 10-18-2014 DJMaggie LISAN [facility] Work Phone: Start: 10-18-2014 End: 10-18-2014 Follow Up Appt 1 year Follow Up Appt 1 year [facility] Work Phone: Start: 10-21-2013 End: 10-21-2013 CLAUDIA CLAUDIA [facility] Work Phone: Start: 10-21-2013 End: 10-21-2013 Follow Up Appt 1 year Follow Up Appt 1 year [facility] Work Phone: Start: 10-21-2013 End: 10-21-2013 LISAN LISAN [facility] Work Phone: Start: 10-21-2013 End: 10-21-2013 Follow Up Appt 1 year Follow Up Appt 1 year [facility] Work Phone: Start: 01-31-2013 End: 2013 *Hepatic Function Panel *Hepatic Function Panel [facility] Work Phone: Start: 01-31-2013 End: 2013 Lipid panel [AGGREGATE] *Lipid Profile [facility] Work Phone: Start: 01-31-2013 End: 2013 *Hepatic Function Panel *Hepatic Function Panel [facility] Work Phone: Start: 01-31-2013 End: 2013 Lipid panel [AGGREGATE] *Lipid Profile [facility] Work Phone: Start: 01-11-2013 End: 01-11-2013 DIRECTOR LAW ENFORCEMENT DIRECTOR LAW ENFORCEMENT [facility] Work Phone: Start: 01-11-2013 End: 01-11-2013 Echocardiography Echocardiogram (complete) [facility] Work Phone: Start: 01-11-2013 End: 01-11-2013 Follow Up Appt 1 year Follow Up Appt 1 year [facility] Work Phone: Start: 01-11-2013 End: 01-11-2013 DIRECTOR LAW ENFORCEMENT DIRECTOR LAW ENFORCEMENT [facility] Work Phone: Start: 01-11-2013 End: 01-11-2013 Echocardiography Echocardiogram (complete) [facility] Work Phone: Start: 01-11-2013 End: 01-11-2013 Follow Up Appt 1 year Follow Up Appt 1 year [facility] Work Phone: Start: 06-03-2012 End: 08-27-2012 *Hepatic Function Panel *Hepatic Function Panel [facility] Work Phone: Start: 06-03-2012 End: 08-27-2012 Lipid panel [AGGREGATE] *Lipid Profile [facility] Work Phone: Start: 06-03-2012 End: 08-27-2012 *Hepatic Function Panel *Hepatic Function Panel [facility] Work Phone: Start: 06-03-2012 End: 08-27-2012 Lipid panel [AGGREGATE] *Lipid Profile [facility] Work Phone: Start: 12-09-2011 End: 12-09-2011 Echocardiography Echocardiogram (complete) [facility] Work Phone: Start: 12-09-2011 End: 12-09-2011 Follow Up Appt 1 year Follow Up Appt 1 year [facility] Work Phone: Start: 12-09-2011 End: 12-09-2011 Echocardiography Echocardiogram (complete) [facility] Work Phone: Start: 12-09-2011 End: 12-09-2011 Follow Up Appt 1 year Follow Up Appt 1 year [facility] Work Phone: Start: 07-17-2011 End: 07-28-2011 *Hepatic Function Panel *Hepatic Function Panel [facility] Work Phone: Start: 07-17-2011 End: 07-28-2011 Lipid panel [AGGREGATE] *Lipid Profile [facility] Work Phone: Start: 07-17-2011 End: 07-28-2011 *Hepatic Function Panel *Hepatic Function Panel [facility] Work Phone: Start: 07-17-2011 End: 07-28-2011 Lipid panel [AGGREGATE] *Lipid Profile [facility] Work Phone: Start: 07-10-2011 End: 07-28-2011 *Hepatic Function Panel *Hepatic Function Panel [facility] Work Phone: Start: 07-10-2011 End: 07-28-2011 Lipid panel [AGGREGATE] *Lipid Profile [facility] Work Phone: Start: 07-10-2011 End: 07-28-2011 *Hepatic Function Panel *Hepatic Function Panel [facility] Work Phone: Start: 07-10-2011 End: 07-28-2011 Lipid panel [AGGREGATE] *Lipid Profile [facility] Work Phone: Start: 06-10-2011 End: 06-10-2011 Follow Up Appt 6 months Follow Up Appt 6 months [facility] Work Phone: Start: 06-10-2011 End: 06-10-2011 Follow Up Appt 6 months Follow Up Appt 6 months [facility] Work Phone: Start: 2011 RSV Vaccine (1 - 1-dose 60+ series) RSV Vaccine (1 - 1-dose 60+ series) [facility] Start: 08-01-2010 Lipid panel Lipid Screening [facility] Start: 08-14-2008 Screening for malignant neoplasm of breast Mammogram Screening [facility] Start: 08-01-2008 Diabetes Screening Diabetes Screening [facility] Start: 2001 Pneumococcal vaccination PNEUMOCOCCAL VACCINE SERIES (1 of 1 - PCV) [facility] Start: 2001 Shingrix Vaccine (1 of 2) Shingrix Vaccine (1 of 2) [facility] Start: 2001 Zoster vaccine hzv live for subcutaneous use ZOSTER (SHINGLES) VACCINE (1 of 2) [facility] Start: 02-27-1999 Urine microalbumin profile DTaP,Tdap,Td Vaccine (1 - Tdap) [facility] Start: 1996 Screening for malignant neoplasm of colon [facility] Start: 1991 Lipid panel LIPID SCREENING [facility] Start: 1991 Screening for malignant neoplasm of breast MAMMOGRAM SCREENING DISCUSSION [facility] Start: 1972 Screening for malignant neoplasm of cervix CERVICAL CANCER SCREENING DISCUSSION [facility] Start: 1970 Third diphtheria, tetanus and acellular pertussis (DTaP) vaccination TDAP (ADULT) [facility] Start: 1969 Annual PCP Team Chronic Disease Visit Annual PCP Team Chronic Disease Visit [facility] Start: 1969 Anxiety Screening Anxiety Screening [facility] Start: 1969 BP Controlled (<130/80) BP Controlled (<130/80) [facility] Start: 1969 Depression Screening Depression Screening [facility] Start: 1969 Hepatitis C screening Hepatitis C Screening [facility] Start: 1951 Hepatitis C screening HEPATITIS C VIRUS SCREENING [facility] Start: 1950 Screening for osteoporosis DEXA SCAN DISCUSSION [facility] Start: 1951 Tetanus vaccination TETANUS [facility] Start: 1951 Thyroid stimulating hormone measurement TSH [facility] Beef IgE Ab [Units/volume] in Serum [facility] CRUZ PH CRUZ PH GI/Bron ch Routine Gastroesophageal reflux disease with esophagitis without hemorrhage Ordered: 03/26/2024 [facility] Comment on above: Ordered: 03/26/2024 Chocolate IgE Ab [Units/volume] in Serum [facility] Clam IgE Ab [Units/volume] in Serum [facility] Codfish IgE Ab [Units/volume] in Serum [facility] Brick IgE Ab [Units/volume] in Serum [facility] Cow milk IgE Ab [Units/volume] in Serum [facility] Ecg routine ecg w/le ast 12 lds w/i&r PA ECG ROUTINE ECG W/LEAST 12 LDS W/I&R PA - OFFICE PERFORMED Routine Preop exam for internal medicine Ordered: 05/21/2024 [facility] Comment on above: Ordered: 05/21/2024 Egg white IgE Ab [Units/volume] in Serum [facility] Fish RAST [facility] Manometry Study observation Narrative MANOMETRY ESOPHAGEAL GI/Bronch Routine Gastroesophageal reflux disease with esophagitis without hemorrhage Ordered: 03/26/2024 [facility] Comment on above: Ordered: 03/26/2024 Patient Education [facility] [employer] Work Phone: Patient referral [facility] Work Phone: Peanut IgE Ab [Units/volume] in Serum [facility] Pork IgE Ab [Units/volume] in Serum [facility] PA INCENTIVE SPIROMETRY PA INCEN TIVE SPIROMETRY PA - OFFICE PERFORMED Routine Postoperative pain Ordered: 06/18/2024 [facility] Comment on above: Ordered: 06/18/2024 Scallop RAST [facility] Sesame seed RAST [facility] Shrimp IgE Ab [Units/volume] in Serum [facility] Soybean IgE Ab [Units/volume] in Serum [facility] End: 06-17-2024 Standard ECG [facility] Comment on above: One Time for 1 Occurrences starting 06/02 until 06/17/2024 SURGICAL PATHOLOGY [facility] Work Phone: Comment on above: Release Upon Ordering for 1 Occurrences starting 02/11/2024, 1 completed US Heart [facility] Work Phone: [employer]mlenton[employer]itza HENLEYT [facility] Wheat IgE Ab [Units/volume] in Serum [facility] Whole Egg IgE Ab [Units/volume] in Serum [facility] Immunizations Immunization Date Immunization Notes Care Provider Ele hawkins 05-15-2023 Influenza vaccine, quadrivalent, adjuvanted MARIO MENSAH DO [facility] 05-15-2023 influenza virus vaccine, unspecified formulation Luan Chapa MD Work Phone: [facility] 05-07-2022 influenza virus vaccine, unspecified formulation MARIO MENSAH DO [facility] 03-02-[address] Adelina Alvarenga Work Phone: [facility] 03-02-2013 influenza virus vaccine, unspecified formulation Luan Chapa MD Work Phone: [facility] 06-02-[address] Delfina Alvarenga Work Phone: [facility] Work Phone: 06-02-2011 pneumococcal vaccine , unspecified formulation Dr. Adelina Alvarenga Work Phone: [facility] 02-26-1999 tetanus and diphther ia toxoids, not adsorbed, for adult use Luan Chapa MD Work Phone: [facility] Payers Date Payer Category Payer Managed Care (unspecified) MEDICARE SUPPLEMENT [id number] 2024 Unknown GENERIC PAYOR ME DICARE SUPPLEMENT [id number] 2024-Present [phone] [address] [address] [place] [address] [id number] 2023 Self-pay [id number] 2016 Private Health Insurance AETNA S UPPLEMENT AETNA MEDICARE SUPPLEMENT [id number] 2016-Present [phone] [address] [address] [place] [address] Indemnity [id number] 2016 Medicare [id number] 2012 Medicare [id number] 2012 Medicare [id number] 1950 Unknown [id number] 2.16.840.1.228484.3.579. 2.651 1950 Unknown [id number] 2.16.840.1.536216.3.579. 2.627 1951 Unknown [id number] 2.16.840.1.568365.3.579. 2.627 1951 Unknown [id number] 2.16.840.1.211204.3.579. 2.594 1951 Unknown [id number] 2.16.840.1.998770.3.579. 2.594 1951 Unknown [id number] 2.16.840.1.658957.3.579. 2.594 1951 Unknown [id number] 2.16.840.1.617631.3.579. 2.594 1951 Unknown [id number] 2.16.840.1.064947.3.579. 2.594 1951 Unknown [id number] 2.16.840.1.924571.3.579. 2.594 1951 Unknown [id number] 2.16.840.1.832129.3.579. 2.594 1951 Unknown [id number] 2.16.840.1.083589.3.579. 2.594 1951 Unknown [id number] 2.16.840.1.987816.3.579. 2.594 1951 Unknown [id number] 2.16.840.1.676040.3.579. 2.594 1951 Unknown [id number] 2.16.840.1.022254.3.579. 2.594 1951 Unknown [id number] 2.16.840.1.085156.3.579. 2.594 Unknown [id number] 2.16.840.1.812925.3.579. 2.462 Unknown [id number] 2.16.840.1.378521.3.579. 2.462 Unknown [id number] 2.16.840.1.573486.3.579. 2.462 Unknown [id number] 2.16.840.1.021988.3.579. 2.462 Unknown [id number] 2.16.840.1.537903.3.579. 2.462 Unknown [id number] 2.16.840.1.973709.3.579. 2.462 Unknown [id number] 2.16.840.1.331367.3.579. 2.462 Unknown [id number] 2.16.840.1.696017.3.579. 2.462 Unknown [id number] 2.16.840.1.307312.3.579. 2.462 Unknown [id number] 2.16.840.1.725691.3.579. 2.462 Unknown [id number] 2.16.840.1.508353.3.579. 2.462 Unknown [id number] 2.16.840.1.471775.3.579. 2.462 Unknown [id number] 2.16840.1.494794.3.579. 2.462 Unknown [id number] 2.16.840.1.834342.3.579. 2.462 Social History Date Type Detail Facility Start: 08-28-2021 End: 06-11-2023 Tobacco smoking status DEIS Unknown if ever smoked [facility] Start: 2019 Non-smoker [facility] Start: 1950 Sex Assigned At Female W [facility] Start: 09-28-2013 None [facility] Start: 09-28-2013 Spouse/ Signif icant Other [facility] Start: 05-06-2023 End: 03-22-2024 Tobacco smoking status Never smoked tobacco (finding) [facility] Start: 10-16-2018 End: 04-07-2024 Tobacco use and exposure Smokeless tobacco non-user [facility] Start: 11-02-2018 End: 02-27-2024 Alcohol intake Current non-drinker of alcohol (finding) [facility] Start: 11-02-2018 End: 10-14-2024 History of Social function [facility] Start: 11-02-2018 End: 10-14-2024 Tobacco use panel [facility] National Score (1-100), lower number is lower risk Not on file [facility] Start: 1950 Sex Assigned At Not on file [facility] Start: 03-27-2024 Gender identity Identifies as female gender (finding) [facility] Start: 03-27-2024 Sexual orientation Heterosexual (fin ding) [facility] Start: 05-14-2024 End: 10-14-2024 Alcoholic beverage intake Lifetime non-drinker (finding) [facility] Start: 05-05-2020 End: 08-27-2024 Sex Female (finding) [facility] NEGATED: Highlighted row [facility] Medical Equipment Procedure Code Equipment Code Equipment Original Text Equipment Identifier Dates Marcos fundoplication SURGICEL, POWDER 3GR FDA Start: 09-04-2021 Marcos fundoplication SURGICEL, POWDER 3GR FDA Start: 09-04-2021 Marcos fundoplication SURGICEL, POWDER 3GR FDA Start: 09-04-2021 Marcos fundoplication SURGICEL, POWDER 3GR FDA Start: 09-04-2021 Marcos fundoplication SURGICEL, POWDER 3GR FDA Start: 09-04-2021 Marcos fundoplication SURGICEL, POWDER 3GR FDA Start: 09-04-2021 Marcos fundoplication SURGICEL, POWDER 3GR FDA Start: 09-04-2021 Marcos fundoplication SURGICEL, POWDER 3GR FDA Start: 09-04-2021 Marcos fundoplication SURGICEL, POWDER 3GR FDA Start: 09-04-2021 Marcos fundoplication SURGICEL, POWDER 3GR FDA Start: 09-04-2021 Marcos fundoplication SURGICEL, POWDER 3GR FDA Start: 09-04-2021 Marcos fundoplication SURGICEL, POWDER 3GR FDA Start: 09-04-2021 Marcos fundoplication SURGICEL, POWDER 3GR FDA Start: 09-04-2021 Marcos fundoplication SURGICEL, POWDER 3GR FDA Start: 09-04-2021 Marcos fundoplication SURGICEL, POWDER 3GR FDA Start: 09-04-2021 Marcos fundoplication SURGICEL, POWDER 3GR FDA Start: 09-04-2021 Marcos fundoplication SURGICEL, POWDER 3GR FDA Start: 09-04-2021 Marcos fundoplication SURGICEL, POWDER 3GR FDA Start: 09-04-2021 Marcos fundoplication SURGICEL, POWDER 3GR FDA Start: 09-04-2021 Marcos fundoplication SURGICEL, POWDER 3GR FDA Start: 09-04-2021 Marcos fundoplication SURGICEL, POWDER 3GR FDA Start: 09-04-2021 Marcos fundoplication SURGICEL, POWDER 3GR FDA Start: 09-04-2021 Marcos fundoplication SURGICEL, POWDER 3GR FDA Start: 09-04-2021 Marcos fundoplication SURGICEL, POWDER 3GR FDA Start: 09-04-2021 Marcos fundoplication SURGICEL, POWDER 3GR FDA Start: 09-04-2021 EGD, with monitored anesthesia care PROBE,PH CAPSULE WITH DEL SYS FDA Start: 08-02-2021 EGD, with monitored anesthesia care PROBE,PH CAPSULE WITH DEL SYS FDA Start: 08-02-2021 EGD, with monitored anesthesia care PROBE,PH CAPSULE WITH DEL SYS FDA Start: 08-02-2021 EGD, with monitored anesthesia care PROBE,PH CAPSULE WITH DEL SYS FDA Start: 08-02-2021 EGD, with monitored anesthesia care PROBE,PH CAPSULE WITH DEL SYS FDA Start: 08-02-2021 EGD, with monitored anesthesia care PROBE,PH CAPSULE WITH DEL SYS FDA Start: 08-02-2021 EGD, with monitored anesthesia care PROBE,PH CAPSULE WITH DEL SYS FDA Start: 08-02-2021 EGD, with monitored anesthesia care PROBE,PH CAPSULE WITH DEL SYS FDA Start: 08-02-2021 EGD, with monitored anesthesia care PROBE,PH CAPSULE WITH DEL SYS FDA Start: 08-02-2021 EGD, with monitored anesthesia care PROBE,PH CAPSULE WITH DEL SYS FDA Start: 08-02-2021 EGD, with monitored anesthesia care PROBE,PH CAPSULE WITH DEL SYS FDA Start: 08-02-2021 EGD, with monitored anesthesia care PROBE,PH CAPSULE WITH DEL SYS FDA Start: 08-02-2021 EGD, with monitored anesthesia care PROBE,PH CAPSULE WITH DEL SYS FDA Start: 08-02-2021 EGD, with monitored anesthesia care PROBE,PH CAPSULE WITH DEL SYS FDA Start: 08-02-2021 EGD, with monitored anesthesia care PROBE,PH CAPSULE WITH DEL SYS FDA Start: 08-02-2021 EGD, with monitored anesthesia care PROBE,PH CAPSULE WITH DEL SYS FDA Start: 08-02-2021 EGD, with monitored anesthesia care PROBE,PH CAPSULE WITH DEL SYS FDA Start: 08-02-2021 EGD, with monitored anesthesia care PROBE,PH CAPSULE WITH DEL SYS FDA Start: 08-02-2021 EGD, with monitored anesthesia care PROBE,PH CAPSULE WITH DEL SYS FDA Start: 08-02-2021 EGD, with monitored anesthesia care PROBE,PH CAPSULE WITH DEL SYS FDA Start: 08-02-2021 EGD, with monitored anesthesia care PROBE,PH CAPSULE WITH DEL SYS FDA Start: 08-02-2021 EGD, with monitored anesthesia care PROBE,PH CAPSULE WITH DEL SYS FDA Start: 08-02-2021 EGD, with monitored anesthesia care PROBE,PH CAPSULE WITH DEL SYS FDA Start: 08-02-2021 EGD, with monitored anesthesia care PROBE,PH CAPSULE WITH DEL SYS FDA Start: 08-02-2021 EGD, with monitored anesthesia care PROBE,PH CAPSULE WITH DEL SYS FDA Start: 08-02-2021 EGD, with monitored anesthesia care PROBE,PH CAPSULE WITH DEL SYS FDA Start: 08-02-2021 EGD, with monitored anesthesia care PROBE,PH CAPSULE WITH DEL SYS FDA Start: 08-02-2021 Goals Date Patient Goal Desired Activity /State Functional Status Date Assessment Result Facility 05-15-2023 Functional Status Quad cane [facility] 05-15-2023 Functional Status Door open, Room check performed [facility] 05-15-2023 [facility]23 [facility] 05-15-2023 [facility] 05-14-2023 [facility] 05-14-2023 Functional Status Demonstrates C orrect Call Light Use Yes [facility] 05-14-2023 Functional Status Min A [facility] 05-14-2023 Functional Status 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, 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, 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 management, Housework, Laundry, Meal preparation, Personal ADL, Shopping [facility] 05-14-2023 Functional [facility] 05-14-[facility]23 [facility] 05-14-2023 Functional Status Maintained [place] [facility] 05-06-2023 Functional Status Sensory Deficits None [facility] 09-05-2021 Functional status Ambulates [facility] Work Phone: Mental Status Date Assessment Result Facility 05-14-2023 Mental Status Oriented x 4 [facility] 05-14-2023 Mental Status [facility] 05-14-2023 Mental Status [facility] 03-10-2023 Cognitive function Voice/Name;Touch/Shaki ng [facility] Work Phone: 09-05-2021 Cognitive function Level Of Cons ciousness Awake;Alert;Appropriate [facility] Work Phone: 09-05-2021 Cognitive function Voice/Name [facility] Work Phone: 08-02-2021 Cognitive function Voice/Name [facility] Work Phone: Clinical Notes 09-05-2021 to 07-16-2024 Wesley Bui MD - 07/16/2024 12:30 PM EST Note Date & Type Note Facility 07-16-2024 History of Present illness Narrative Subjective: Anusha Vidal presents to the clinic 4 weeks following laparoscopic redo Paraesophageal hernia repair with Marcos fundoplication. Eating a post-Marcos diet without dysphagia. The patient is not having any pain.. Reflux symptoms are completely resolved. The patient is not currently taking acid reducing medications. Objective: BP 148/77 (BP Location: Right arm, BP Position: Sitting) Pulse 54 Temp 98 F (36.7 C) (Infrared) Ht 1.499 m (4' 11) Wt 56.2 kg (124 lb) SpO2 98% BMI 25.04 kg/m Smoking Status Never Wt Readings from Last 3 Encounters: 07/16/24 56.2 kg (124 lb) 06/17/24 62.3 kg (137 lb 6.4 oz) 05/21/24 59.2 kg (130 lb 8 oz) Body mass index is 25.04 kg/m . General: alert, cooperative, no distress, appears stated age Abdomen: soft, bowel sounds active, non-tender Incision: healing well, no drainage, no erythema Assessment: 74 y.o. female s/p laparoscopic Marcos fundoplication. Doing well postoperatively. Plan: 1. Regular diet as tolerated 2. No PPI required 3. Pt is to increase activities as tolerated. 4. Follow up: 4 weeks with PUBLICATIONS EDITOR Wesley Bui MD fact checker [facility] documented in this encounter [facility] 06-23-2024 Evaluation note Diagnosis Onset Date Resolution Abdominal pain acute June 232024 7:22am Change in bowel habit chronic Shaan [id number] 7:22am Dumping syndrome chronic June 23, 2024 7:22am Esophageal spasm chronic June 23, 2024 7:22am GERD (gastroesophageal reflux disease) chronic June 23 7:22am History of fundoplication chronic June 23 7:22am Dysphagia inactive June 23, 2024 7:22am Atypical chest pain chronic August 04, 2024 12:48pm Bicuspid aortic valve chronic Jul 12:48pm Essential (primary) hypertension chronic August 04, 2024 12:48pm Factor V deficiency chronic August 04, 2024 12:48pm Palpitations chronic August 04, 2 025 12:48pm [facility] Work Phone: [phone] 765-673701-17-2025 Nurse Note* Nursing Notes - Eden Morales RN - 06/18/2024 12:49 PM EST AVS reviewed with the patient and her at the bedside. All questions answered. PIV removed. 1320:The patient was wheeled down to the main entrance by the [employer]. [facility]01-17-2025 Miscellaneous Notes* Nursing Notes - Eden Morales RN - 06/18/2024 12:49 PM EST AVS reviewed with the patient and her at the bedside. All questions answered. PIV removed. 1320:The patient was wheeled down to the main entrance by the [employer]. * Plan of Care - Juan Tyler, - 06/17/2024 6:51 PM EST [facility] Plan of Care Note Contacted by primary team for STAT consult regarding chest pain. Patient is a 74 year old female with bicuspid aortic valve, factor V Leiden with prior DVT and TIA,mixed hyperlipidemia, essential hypertension, and thyroid cancer S/P thyroidectomy (2009) who was admitted to [facility] for redo laparoscopic paraesophageal hernia repair with redo Marcos fundoplication secondary to refractory GERD. She underwent this procedure successfully on 06/15/24 without reported complications, however, her hospital course has been complicated by chest pain and right shoulder pain (though this has improved since onset 06/15/24). Vital signs demonstrate normal heart rate and blood pressure, intermittently requiring 1-2L O2 NC to maintain appropriate oxygen saturation. Lab studies unremarkable, including troponin normal on consecutive measurements (7 --> 7, obtained about 1 hour apart). CXR demonstrates right basilar volume loss. ECG obtained and shows normal sinus rhythm, possible old inferior infarct, and [id number] abnormalities - compared to prior ECG (05/2024) inferior Q waves are more pronounced, ST-T flattening and T-wave inversions present in lateral leads. ECG obtained this evening (about 6 hours after initial) without dynamic/ischemic changes. Her current inpatient medications including atenolol 12.5 mg every morning & 25 mg every evening and therapeutic enoxaparin (on warfarin chronically). Simvastatin is currently being held. 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 She is not very physically active, but has not noticed recent exertional chest pain or dyspnea beyond baseline - she believes she had a pharmacologic stress test within the past 2-3 yearswhich was normal (unable to find in EMR). She reports right chest pain that has been present for atleast weeks prior to this procedure - however, it seems to have acutely worsened since the procedure. She describes the pain as radiating to her right shoulder, worse when taking deep breaths, relieved with opioids. She otherwise is not having fevers/chills, dizziness, dyspnea, orthopnea/PND, or lower extremity swelling. She reports a remote history of RLE DVT, but does not believe that she has ever had a PE. Based on available clinical evidence, do not suspect that patient is having an acute coronary syndrome - moreover, unlikely that chest pain is cardiac in origin. Differential diagnosis includes pleuritic-type chest pain exacerbated by operative intervention, notably though this was present prior toprocedure as well. For now, do not recommend any further testing - if she were to have a significant change in her chest pain or change in clinical status, then it would be reasonable to obtain repeat troponin and ECG. Similiarly, some concern for PE given FVL, pleuritic chest pain, and intermittent O2 requirement. CT PE could be considered if clinical/respiratory status is worsening, though I don't think this is necessary now - and she already has an indication for lifelong anticoagulation. Would continue atenolol and simvastatin as deemed appropriate by primary team - patient reportedly haslocal cardiology follow-up 07/2024. TTE (10/09/22): [images not available] LVEF 55%, indeterminate diastolic function Normal RV size and systolic function Bicuspid aortic valve without aortic stenosis/regurgitation Normal aortic root Estimated PASP 40 mmHg No pericardial effusion Patient will be formally evaluated by cardiology consult team 06/18/24 AM - please reach out with acute questions or clinical concerns in the interim. Juan Tyler DO Fellow - Cardiovascular Medicine * Nursing Notes - Sandra Kincaid RN - 06/17/2024 5:31 AM EST Attempted to walk patient in the [place]ello, but patient appeared sob and weak, c/o dizziness. Sat 86-93%on room air. Pt using IS and coughing up phlegm. Only voided 100ml dark yellow urine. Dr Garfield Ingram notified of this. MD to assess on rounds. Pt currently resting in bed on 2L nc at 96%. Sandra Kincaid RN * Nursing Notes - Sandra Kincaid RN - 06/16/2024 9:[address] Hector Perry notified via secure chat of bp 104/57 and sbp's being in the 90's most of the day and asked if we should hold the atenolol.Sandra Kincaid RN * Nursing Notes - Anaid Lopez RN - 06/16/2024 6:54 PM EST Patient up ambulating in hallway with stand by assist of one staff member. Gait slow and steady. * Plan of Care - Garfield Ingram MD - 06/15/2024 5:14 PM EST Surgery Post-Op Check Note Anusha Vidal is a 74 y.o. yr old female, who is now POD#0 s/p Procedure(s) (LRB): REVISION REPAIR HERNIA PARAESOPHAGEAL LAPAROSCOPIC W/O MESH (N/A). There were no complications to the procedure, and the patient tolerated it well. Arrived to the floor in stable condition. Subjective: Patient resting comfortably in bed. Patient awake and participatory in clinical exam. Nausea is currently controlled with prn medications. Pain is controlled on current regimen, states her pain is primarily right upper abdomen. Patient is breathing comfortably on room air and denied anySOB or chest pain. Family is at the bedside and has no questions or concerns at this time. Objective: BP 111/65 (BP Location: Right arm, BP Position: Lying) Pulse 72 Temp 98 F (36.7 C) (Infrared) Resp 16 Ht 1.499 m (4' 11) Wt 58.6 kg (129 lb 3.2 oz) SpO2 91% BMI 26.10 kg/m Smoking Status Never Exam: GEN: NAD, laying comfortably in bed CV: RRR, HDS Pulm: No respiratory distress Abd: Soft, appropriately tender, mildly-distended. Laparoscopic incisions clean,dry, and intact with steri strips overlying, minimal strikethrough Ext: No LE swelling/edema, distal pulses 2+ Neuro: No focal deficits Assessment: 74 y.o. yr old female now POD 0 s/p Procedure(s) (LRB): REVISION REPAIR HERNIA PARAESOPHAGEAL LAPAROSCOPIC W/O MESH (N/A). Currently stable on the floor. Plan: - DIET CLEAR LIQUID No Carbonated Beverages DIET LIQUID Liquid Consistency Spoon Thick; No Carbonated Beverages - Pain control: multimodal - Herrera: none. Voiding appropriately - Patient advised to call with any concerns - Will continue to monitor Garfield Ingram MD General Surgery Pager [phone] * Op Note - Wesley Bui MD - 06/15/2024 4:31 PM EST General Surgery Operative Report 06/15/2024 Surgeon: Wesley Bui MD Pallet Stone Inserter: Ayesha Garcia MD, Ml Palma MD Pre-operative Diagnosis: Recurrent Paraesophageal Hernia, GERD Post-operative Diagnosis: Recurrent Paraesophageal Hernia, GERD Procedure: Redo Laparoscopic Paraesophageal Hernia Repair with Redo Marcos Fundoplication Anesthesia: GETA Blood Loss: Minimal Operative Indications: This is a 74-year-old female with a longstanding history of gastroesophagealreflux refractory to medical therapy and previous fundoplication who subsequently developed a symptomatic hernia recurrence. Given her symptoms and results of objective testing, the decision was madeto proceed with elective laparoscopic redo paraesophageal hernia repair and redo Marcos fundoplication. Details of procedure: After informed consent was obtained, the patient was taken to the operating, placed in the supine split-leg position on the operating room table. Following the induction of general anesthesia, the patient's abdomen was prepped and draped in the usual sterile fashion and intraperitoneal access was gained using a left upper quadrant Veress needle approach. The abdomen insufflat ed to a pressure of 15 mmHg and an 11-mm camera port was placed 15 cm caudal to the xiphoid processand just to the left of the midline. Initial inspection revealed no evidence of Veress needle injury or unexpected intra-abdominal pathology and the remainder of the working ports were placed. These included a 12-mm port in the left upper quadrant, a 5-mm port in the lateral left midabdomen, a 5-mmport in the right upper quadrant and the Ananda liver retractor was placed in the subxiphoid position and used to retract the left lobe of the liver and expose the esophageal hiatus. The hiatal dissection was begun in the pars flaccida of the lesser omentum. This was opened and adhesions to the liver were divided to expose the right yadira. The medial border of the right yadira was dissected from the herniated stomach down to the level of the crural confluence using blunt and sharpdissection. The adhesions to the crural arch were then opened and attention was turned to the greater curvature of the stomach. The remaining short gastric vessels were divided using the harmonic scalpel to enter the lesser sac. The posterior adhesions were lysed to level of the left yadira. The leftcrus was dissected free from the herniated stomach, and the previous fundoplication was reduced into the abdominal cavity and a complete circumferential esophageal dissection was achieved. A Camacho drain was then placed around the esophagus and used to retract the esophagus in a caudal direction. The esophagus was then mobilized high in the mediastinum using blunt and sharp dissection. There wasample length of infra-abdominal esophagus to perform a fundoplication. The previous fundoplication was taken down sharply and dissected from the esophagus, and the stomach was returned to its normal anatomic position. Attention was then turned to the crural closure. A posterior cruroplasty was performed using interrupted 0 Ethibond pledgeted sutures. When this was completed the fundus of the stomach was passed around behind the esophagus and a 56-Andorran Carbajal dilator was passed down the esophagus and into the stomach and a floppy Marcos fundoplication was performed over this large dilator. The fundoplicationwas created by taking a bite of the greater curvature of the stomach, the esophagus and the greatercurvature of the stomach. This was performed using 3 sutures to create a 2 cm wrap. When this was completed the bougie was removed and the Camacho drain was removed from around the esophagus. The patient was placed back in the supine position and the Ananda liver retractor was removed to allow the liver to return to its normal position. All of the area was inspected, there was no evidence of any bleeding from the operative site and all the ports were removed under direct vision without bleedi ng from the abdominal wall. The insufflation was then allowed to escape the abdomen and the skin incisions were closed using interrupted subcuticular sutures. The patient tolerated the procedure well, was extubated in the operating room, transported to the recovery room in stable condition. All spon ge, needle and instrument counts were correct at the end of the case. * Brief Op Note - Ml Palma MD - 06/15/2024 1:39 PM EST Anusha Vidal ([id number]) PRE OPERATIVE DIAGNOSIS Paraesophageal hernia [K44.9] POST OPERATIVE DIAGNOSIS Paraesophageal hernia [K44.9] PROCEDURE PERFORMED Procedure(s) (LRB): REVISION REPAIR HERNIA PARAESOPHAGEAL LAPAROSCOPIC W/O MESH (N/A) PRIMARY CLOSURE Yes INTRAOPERATIVE FINDINGS Lap redo PEHR with Marcos fundoplication SURGEON Surgeons and Role: * Wesley Bui MD - Primary * Ml Palma MD - Fellow ANESTHESIOLOGIST Anesthesiologist: Jono Aldridge MD CONCRETE BUCKET LOADER: Ankur Acosta APRN-CONCRETE BUCKET LOADER Evening Or Night Nurse Supervisor Assisting: Marcel Bennett MD SURGICAL STAFF Assembler Product: Rosenda Valdez RN; Elan Zeng RN Relief Scrub: Sofiya Infante Scrub Person: Liat Murrell Resident Assisting: Ayesha Garcia MD COMPLICATIONS None ESTIMATED BLOOD LOSS Minimal SPECIMENS * No specimens in log * Ml Palma MD June 15, 2024 1:39 PM [facility] Consult note* Nika Mack MD - 06/18/2024 8:06 AM ESTAssociated Order(s): IP CONSULT TO CARDIOLOGY Images from the original note were not included. CARDIOLOGY CONSULT Patient Name: Anusha Vidal Date of Consult: 06/18/2024 Reason for Consultation: new onset chest pain and EKG changes from previous Referred by: Wesley Bui MD Admit Date: 06/15/2024 ASSESSMENT AND PLAN: Anusha Vidal is a 74 y.o. female with history and problems listed below CARDIOVASCULAR PROBLEM LIST Pleuritic non-reproducible sharp, right sided chest pain, not worse with exertion Unlikely patient is experiencing acute coronary syndrome with normal troponin, chest pain does not correlate with anginal symptoms, and without ischemic changes on EKG. Differential includes pulmonary vs GI pathology following recent surgery. Hx of DVT on warfarin GENEVA and WELLS score with intermediate risk for PE. However, due to recent surgery, D dimer is likely to be elevated already. Patient is already on appropriate treatment, warfarin, due to hx of DVT. Bicuspid aortic valve Recent echo 09/2022 with out valvular abnormalities, reassuring against pathology such as contributing to chest pain Mixed hyperlipidemia Hypertension OTHER PERTINENT ACTIVE PROBLEMS GERD with esophagitis Paraesophageal hernia s/p hernia repair Hypoxia likely 2/2 atelectasis Hx of TIA RECOMMENDATIONS: Recommend work up per primary for non-cardiac causes of chest pain. No further testing from cardiacperspective at this time Follow up with [facility] outpatient Continue simvastatin and atenolol as appropriate per primary These recommendations were communicated to the primary team by BILL duran Thank you for allowing us to participate in the care of this patient. If you have further questions, please do not hesitate to contact the Cardiology Consult service through [employer]. We will sign off. -- All recommendations preliminary until cosigned by attending physician. -- Nika Mack MD PGY1 Department of Internal Medicine [facility] HISTORY OF PRESENT ILLNESS: It was our pleasure to see . Anusha Vidal in consultation at the [facility] on 06/18/2024 for evaluation of chest pain. She is a 74 y.o. female with history of bicuspid aortic valve, factor V Leiden with prior DVT and TIA, mixed hyperlipidemia, essential hypertension, and thyroid cancer S/P thyroidectomy (2009) who was admitted to [facility] for redo laparoscopic paraesophageal hernia repair with redo Marcos fundoplication secondary to refractory GERD on 06/15/24. Surgery was successful however since surgery she has noted worsening right sided pleuritic chest pain that radiates to back. She has been HDS but hypoxic requiring 1-2L O2NC intermittently, nontachycardic. Lab work notable for normal troponin (7 -> 7). CXR with right basilar volume loss. EKG with nonspecific T wave changes more pronounced compared to EKG available 05/21/24 in [place]. Otherwise normal sinus rhythm. On interview, patient reports for the last month experiencing right sided chest pain that is pleuritic, sharp, radiates to the back, happens randomly, not worse with exertion, and unrelated to dyspnea on exertion. Pain is not reproducible. In the last 2-3 days since surgery this pain has acutely worsened to where she is taking minimal breaths due to pleuritic significant pain. Oxycodone helps. Other characteristics of pain have not changed. She denies current SOB, N/V, diaphoresis. She also denies orthopnea/PND, LE edema, exertional CP, decreased in activity due to dyspnea at home. She deniesSOB here when she is hypoxic. CV History: Listed CAD on problem list but no cath report available. Patient believes she had LHC ~30yrs ago when she was told there may have been blockages but not significant and no stents placed. Also with hx of Bicuspid aortic valve. TTE on 10/09/22 with 55% LVEF, no regional wall motion abnormalities, no valvular abnormalities such as . 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 [facility] CAD Risk Factors: HTN, HLD, TIA (2010?) Home Medications: atenolol 12.5mg qAM and 25mg qPM (patient reports for HTN and palpitations), warfarin ECHOCARDIOGRAM (OUTSIDE) (Final) TTE (10/09/22): [images not available] LVEF 55%, indeterminate diastolic function Normal RV size and systolic function Bicuspid aortic valve without aortic stenosis/regurgitation Normal aortic root Estimated PASP 40 mmHg No pericardial effusion EKG: PAST MEDICAL HISTORY: PAST MEDICAL HISTORY Past Medical History: Diagnosis Date Arrhythmia Arthritis Benign neoplasm of stomach Bicuspid aortic valve Blood dyscrasia Chronic back pain Colonic polyp COPD (chronic obstructive pulmonary disease) Coronary artery disease Diverticulosis AQUINO (dyspnea on exertion) Duodenitis without hemorrhage DVT (deep venous thrombosis) Essential hypertension Factor V Leiden GERD (gastroesophageal reflux disease) Hiatal hernia High cholesterol Hyperthyroidism IBS (irritable bowel syndrome) Mini stroke Post-menopausal bleeding RUQ pain Stroke Syncope PAST SURGICAL HISTORY No past surgical history on file. FAMILY HISTORY Family History Problem Relation Age of Onset Diabetes Mother Sudden Cardiac Father Bleeding or Clotting Problems Paternal Uncle Breast Cancer Maternal Aunt SOCIAL HISTORY She reports that she has never smoked. She has never used smokeless tobacco. She reports that she does not drink alcohol and does not use drugs. ALLERGIES Allergies Allergen Reactions Ivp Dye, Iodine Containing Hives Other Reaction(s): WELTS ON FACE Levofloxacin Other Reaction(s): ABDOMINAL PAIN, Other: See Comments Abd pain Naproxen Other Reaction(s): GI Upset, STOMACH PAIN HOME MEDICATIONS Medications Prior to Admission Medication Sig Dispense Refill Last Dose Atenolol 25 MG tablet TAKE ONE-HALF TABLET BY MOUTH EVERY MORNING AND TAKE ONE TABLET EVERY EVENINGAT BEDTIME. 06/15/2024 at 0630 Calcium Citrate-Vitamin D (CALCIUM + D PO) Take by mouth daily every morning. Past Month Multiple Vitamin (MULTI VITAMIN PO) Take 1 tablet by mouth daily every morning. Past Month simvastatin 40 MG tablet take 1 tablet by mouth at bedtime for cholesterol 06/14/2024 tiZANidine 4 MG tablet Take 1 tablet by mouth at bedtime. Past Week [DISCONTINUED] omeprazole [address] capsule Take 1 capsule by mouth 2 times daily. 06/15/2024 at 0630 Levothyroxine 75 MCG tablet TAKE 1 TABLET BY MOUTH IN THE MORNING ON AN EMPTY STOMACH at 0630 Polyethylene glycol 17 GM/SCOOP Powder powder 17 g as needed. 06/11/2024 Warfarin 3 MG tablet Take 1 tablet by mouth every evening. 3 mg a day except Friday is 2 mg 06/09/2024 CURRENT MEDICATIONS Atenolol 12.5 mg Oral QAM Atenolol 25 mg Oral Nightly enoxaparin 1 mg/kg (Order-Specific) Subcutaneous Q12HNS Levothyroxine 75 mcg Oral Before BKF ondansetron 4 mg Intravenous Q6H Sodium chloride 0.9% 75 mL/hr at 06/18/24 0643 PHYSICAL EXAM: Intake/Output Summary (Last 24 hours) at 06/18/2024 0807 Last data filed at 06/18/2024 0643 Gross per 24 hour Intake 2074.4 ml Output 1400 ml Net 674.4 ml Temp: [97.7 F (36.5 C)-99.1 F (37.3 C)] 97.7 F (36.5 C) Pulse (Heart Rate): [71-87] 73 Resp Rate: [15-23] 16 BP: (92-127)/(50-63) 97/53 O2 Sat (%): [86 %-97 %] 97 % Weight: [62.3 kg (137 lb 6.4 oz)] 62.3 kg (137 lb 6.4 oz) Wt Readings from Last 3 Encounters: 06/17/24 62.3 kg (137 lb 6.4 oz) 05/21/24 59.2 kg (130 lb 8 oz) 05/14/24 58.2 kg (128 lb 6.4 oz) BP 97/53 (BP Location: Left arm, BP Position: Lying) Pulse 73 Temp 97.7 F (36.5 C) (Infrared) Resp 16 Ht 1.499 m (4' 11) Wt 62.3 kg (137 lb 6.4 oz) SpO2 97% BMI 27.75 kg/m Smoking Status Never General:appears stated age, well groomed, no distress, laying in bed Neurologic: alert and oriented to person, place, time and situation, no slurred speech, NFD HEENT: EOMI, no pharyngeal exudate, atraumatic, no tenderness to palpation of chest or back CV: Normal rate and regular rhythm. S1, S2 normal. Systolic murmur RUSB. There is no jugular venousdistension noted. Normal carotid upstrokes without bruits. Respiratory: expiratory wheezing pos on R middle and lower bases, symmetric chest rise, no increased work of breathing, gasp in pain during deep breathing Abdomen: soft, tender epigastric, no palpable organomegaly, clean and dry incisions Extremities: no peripheral edema, radial and DP pulses normal and symmetric Skin: warm, dry, no rashes PERSONALLY REVIEWED DATA: Lab Results Component Value Date SODIUM 140 06/18/2024 POTASSIUM 4.1 06/18/2024 GLUCOSE 84 06/18/2024 CHLORIDE 109 (H) 06/18/2024 CO2 25 06/18/2024 BUN 9 06/18/2024 CREATSERUM 0.74 06/18/2024 Lab Results Component Value Date WBC 4.57 06/18/2024 HGB 10.2 (L) 06/18/2024 HCT 32.6 (L) 06/18/2024 PLATELET 165 06/18/2024 MCV 97.9 (H) 06/18/2024 hs-Troponin I Date Value Ref Range Status 06/17/2024 7 <34 ng/L Final 1 Hour hs-Troponin Date Value Ref Range Status 06/17/2024 7 <34 ng/L Final Delta hs-Troponin I Date Value Ref Range Status 06/17/2024 0 <=15 ng/L Final No results found for: CHOLESTEROL, TRIG, HDL, LDLCALC, LDLDIRECT Associated attestation - Julianne Porter DO - 06/18/2024 6:15 PM EST Images from the original note were not included. Attending Attestation: Thank you for allowing us the opportunity to participate in your patient's care. I independently interviewed and examined the patient on 06/18/2024. I discussed the history, physical exam and care plan with the resident. Any changes to the history or physical exam were either edited in the note, or mentioned in this summation. Anusha Vidal is a 74 y.o. female with h/o BAV, HLD, HTN, DVT, TIA, thyroid cancer s/p thyroidectomy who is admitted with lap hernia repair for GERD. We are consulted for CP. She has had sharp, pleuritic chest pain that has been persistent for the last month but has worsened in the last 2 days. Trops negative. EKG: NSR, nonspecific T wave changes TTE 09/2022: normal BiV function, no stenosis or regurg Exam: VS: reviewed Lungs: CTAB, no wheezing Car: RRR, no murmurs, no JVD, no carotid bruits Abd: ND, no abd bruit Extr: 2+ DP pulses, no edema # Noncardiac chest pain # BAV -no further cardiac testing -follow up with local trucksmith at scheduled appointment We will sign off. Please reach out with any questions or concerns. Julianne Porter DO Hand Crocheter of Internal Medicine Division of Cardiovascular Medicine [facility] Work Phone: [phone] Consult note* Nika Mack MD - 06/18/2024 8:06 AM ESTAssociated Order(s): IP CONSULT TO CARDIOLOGY Images from the original note were not included. CARDIOLOGY CONSULT Patient Name: Anusha Vidal Date of Consult: 06/18/2024 Reason for Consultation: new onset chest pain and EKG changes from previous Referred by: Wesley Bui MD Admit Date: 06/15/2024 ASSESSMENT AND PLAN: Anusha Vidal is a 74 y.o. female with history and problems listed below CARDIOVASCULAR PROBLEM LIST Pleuritic non-reproducible sharp, right sided chest pain, not worse with exertion Unlikely patient is experiencing acute coronary syndrome with normal troponin, chest pain does not correlate with anginal symptoms, and without ischemic changes on EKG. Differential includes pulmonary vs GI pathology following recent surgery. Hx of DVT on warfarin GENEVA and WELLS score with intermediate risk for PE. However, due to recent surgery, D dimer is likely to be elevated already. Patient is already on appropriate treatment, warfarin, due to hx of DVT. Bicuspid aortic valve Recent echo 09/2022 with out valvular abnormalities, reassuring against pathology such as contributing to chest pain Mixed hyperlipidemia Hypertension OTHER PERTINENT ACTIVE PROBLEMS GERD with esophagitis Paraesophageal hernia s/p hernia repair Hypoxia likely 2/2 atelectasis Hx of TIA RECOMMENDATIONS: Recommend work up per primary for non-cardiac causes of chest pain. No further testing from cardiacperspective at this time Follow up with [facility] outpatient Continue simvastatin and atenolol as appropriate per primary These recommendations were communicated to the primary team by JUAN duran Thank you for allowing us to participate in the care of this patient. If you have further questions, please do not hesitate to contact the Cardiology Consult service through [employer]. We will sign off. -- All recommendations preliminary until cosigned by attending physician. -- Nika Mack MD PGY1 Department of Internal Medicine [facility] HISTORY OF PRESENT ILLNESS: It was our pleasure to see Ms. Anusha Vidal in consultation at the [facility] on 06/18/2024 for evaluation of chest pain. She is a 74 y.o. female with history of bicuspid aortic valve, factor V Leiden with prior DVT and TIA, mixed hyperlipidemia, essential hypertension, and thyroid cancer S/P thyroidectomy (2009) who was admitted to [facility] for redo laparoscopic paraesophageal hernia repair with redo Marcos fundoplication secondary to refractory GERD on 06/15/24. Surgery was successful however since surgery she has noted worsening right sided pleuritic chest pain that radiates to back. She has been HDS but hypoxic requiring 1-2L O2NC intermittently, nontachycardic. Lab work notable for normal troponin (7 -> 7). CXR with right basilar volume loss. EKG with nonspecific T wave changes more pronounced compared to EKG available 05/21/24 in [place]. Otherwise normal sinus rhythm. On interview, patient reports for the last month experiencing right sided chest pain that is pleuritic, sharp, radiates to the back, happens randomly, not worse with exertion, and unrelated to dyspnea on exertion. Pain is not reproducible. In the last 2-3 days since surgery this pain has acutely worsened to where she is taking minimal breaths due to pleuritic significant pain. Oxycodone helps. Other characteristics of pain have not changed. She denies current SOB, N/V, diaphoresis. She also denies orthopnea/PND, LE edema, exertional CP, decreased in activity due to dyspnea at home. She deniesSOB here when she is hypoxic. CV History: Listed CAD on problem list but no cath report available. Patient believes she had LHC ~30yrs ago when she was told there may have been blockages but not significant and no stents placed. Also with hx of Bicuspid aortic valve. TTE on 10/09/22 with 55% LVEF, no regional wall motion abnormalities, no valvular abnormalities such as . 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 [facility] CAD Risk Factors: HTN, HLD, TIA (2010?) Home Medications: atenolol 12.5mg qAM and 25mg qPM (patient reports for HTN and palpitations), warfarin ECHOCARDIOGRAM (OUTSIDE) (Final) TTE (10/09/22): [images not available] LVEF 55%, indeterminate diastolic function Normal RV size and systolic function Bicuspid aortic valve without aortic stenosis/regurgitation Normal aortic root Estimated PASP 40 mmHg No pericardial effusion EKG: PAST MEDICAL HISTORY: PAST MEDICAL HISTORY Past Medical History: Diagnosis Date Arrhythmia Arthritis Benign neoplasm of stomach Bicuspid aortic valve Blood dyscrasia Chronic back pain Colonic polyp COPD (chronic obstructive pulmonary disease) Coronary artery disease Diverticulosis AQUINO (dyspnea on exertion) Duodenitis without hemorrhage DVT (deep venous thrombosis) Essential hypertension Factor V Leiden GERD (gastroesophageal reflux disease) Hiatal hernia High cholesterol Hyperthyroidism IBS (irritable bowel syndrome) Mini stroke Post-menopausal bleeding RUQ pain Stroke Syncope PAST SURGICAL HISTORY No past surgical history on file. FAMILY HISTORY Family History Problem Relation Age of Onset Diabetes Mother Sudden Cardiac Father Bleeding or Clotting Problems Paternal Uncle Breast Cancer Maternal Aunt SOCIAL HISTORY She reports that she has never smoked. She has never used smokeless tobacco. She reports that she does not drink alcohol and does not use drugs. ALLERGIES Allergies Allergen Reactions Ivp Dye, Iodine Containing Hives Other Reaction(s): WELTS ON FACE Levofloxacin Other Reaction(s): ABDOMINAL PAIN, Other: See Comments Abd pain Naproxen Other Reaction(s): GI Upset, STOMACH PAIN HOME MEDICATIONS Medications Prior to Admission Medication Sig Dispense Refill Last Dose Atenolol 25 MG tablet TAKE ONE-HALF TABLET BY MOUTH EVERY MORNING AND TAKE ONE TABLET EVERY EVENINGAT BEDTIME. 06/15/2024 at 0630 Calcium Citrate-Vitamin D (CALCIUM + D PO) Take by mouth daily every morning. Past Month Multiple Vitamin (MULTI VITAMIN PO) Take 1 tablet by mouth daily every morning. Past Month simvastatin 40 MG tablet take 1 tablet by mouth at bedtime for cholesterol 06/14/2024 tiZANidine 4 MG tablet Take 1 tablet by mouth at bedtime. Past Week [DISCONTINUED] omeprazole [address] capsule Take 1 capsule by mouth 2 times daily. 06/15/2024 at 0630 Levothyroxine 75 MCG tablet TAKE 1 TABLET BY MOUTH IN THE MORNING ON AN EMPTY STOMACH at 0630 Polyethylene glycol 17 GM/SCOOP Powder powder 17 g as needed. 06/11/2024 Warfarin 3 MG tablet Take 1 tablet by mouth every evening. 3 mg a day except Friday is 2 mg 06/09/2024 CURRENT MEDICATIONS Atenolol 12.5 mg Oral QAM Atenolol 25 mg Oral Nightly enoxaparin 1 mg/kg (Order-Specific) Subcutaneous Q12HNS Levothyroxine 75 mcg Oral Before BKF ondansetron 4 mg Intravenous Q6H Sodium chloride 0.9% 75 mL/hr at 06/18/24 0643 PHYSICAL EXAM: Intake/Output Summary (Last 24 hours) at 06/18/2024 0807 Last data filed at 06/18/2024 0643 Gross per 24 hour Intake 2074.4 ml Output 1400 ml Net 674.4 ml Temp: [97.7 F (36.5 C)-99.1 F (37.3 C)] 97.7 F (36.5 C) Pulse (Heart Rate): [71-87] 73 Resp Rate: [15-23] 16 BP: (92-127)/(50-63) 97/53 O2 Sat (%): [86 %-97 %] 97 % Weight: [62.3 kg (137 lb 6.4 oz)] 62.3 kg (137 lb 6.4 oz) Wt Readings from Last 3 Encounters: 06/17/24 62.3 kg (137 lb 6.4 oz) 05/21/24 59.2 kg (130 lb 8 oz) 05/14/24 58.2 kg (128 lb 6.4 oz) BP 97/53 (BP Location: Left arm, BP Position: Lying) Pulse 73 Temp 97.7 F (36.5 C) (Infrared) Resp 16 Ht 1.499 m (4' 11) Wt 62.3 kg (137 lb 6.4 oz) SpO2 97% BMI 27.75 kg/m Smoking Status Never General:appears stated age, well groomed, no distress, laying in bed Neurologic: alert and oriented to person, place, time and situation, no slurred speech, NFD HEENT: EOMI, no pharyngeal exudate, atraumatic, no tenderness to palpation of chest or back CV: Normal rate and regular rhythm. S1, S2 normal. Systolic murmur RUSB. There is no jugular venousdistension noted. Normal carotid upstrokes without bruits. Respiratory: expiratory wheezing pos on R middle and lower bases, symmetric chest rise, no increased work of breathing, gasp in pain during deep breathing Abdomen: soft, tender epigastric, no palpable organomegaly, clean and dry incisions Extremities: no peripheral edema, radial and DP pulses normal and symmetric Skin: warm, dry, no rashes PERSONALLY REVIEWED DATA: Lab Results Component Value Date SODIUM 140 06/18/2024 POTASSIUM 4.1 06/18/2024 GLUCOSE 84 06/18/2024 CHLORIDE 109 (H) 06/18/2024 CO2 25 06/18/2024 BUN 9 06/18/2024 CREATSERUM 0.74 06/18/2024 Lab Results Component Value Date WBC 4.57 06/18/2024 HGB 10.2 (L) 06/18/2024 HCT 32.6 (L) 06/18/2024 PLATELET 165 06/18/2024 MCV 97.9 (H) 06/18/2024 hs-Troponin I Date Value Ref Range Status 06/17/2024 7 <34 ng/L Final 1 Hour hs-Troponin Date Value Ref Range Status 06/17/2024 7 <34 ng/L Final Delta hs-Troponin I Date Value Ref Range Status 06/17/2024 0 <=15 ng/L Final No results found for: CHOLESTEROL, TRIG, HDL, LDLCALC, LDLDIRECT Associated attestation - Julianne Porter DO - 06/18/2024 6:15 PM EST Images from the original note were not included. Attending Attestation: Thank you for allowing us the opportunity to participate in your patient's care. I independently interviewed and examined the patient on 06/18/2024. I discussed the history, physical exam and care plan with the resident. Any changes to the history or physical exam were either edited in the note, or mentioned in this summation. Anusha Vidal is a 74 y.o. female with h/o BAV, HLD, HTN, DVT, TIA, thyroid cancer s/p thyroidectomy who is admitted with lap hernia repair for GERD. We are consulted for CP. She has had sharp, pleuritic chest pain that has been persistent for the last month but has worsened in the last 2 days. Trops negative. EKG: NSR, nonspecific T wave changes TTE 09/2022: normal BiV function, no stenosis or regurg Exam: VS: reviewed Lungs: CTAB, no wheezing Car: RRR, no murmurs, no JVD, no carotid bruits Abd: ND, no abd bruit Extr: 2+ DP pulses, no edema # Noncardiac chest pain # BAV -no further cardiac testing -follow up with local trucksmith at scheduled appointment We will sign off. Please reach out with any questions or concerns. Julianne Porter DO Hand Crocheter of Internal Medicine Division of Cardiovascular Medicine documented in this [facility] Plan of care note* Plan of Care - Juan Tyler DO - 06/17/2024 6:51 PM EST [facility] Cardiology Plan of Care Note Contacted by primary team for STAT consult regarding chest pain. Patient is a 74 year old female with bicuspid aortic valve, factor V Leiden with prior DVT and TIA,mixed hyperlipidemia, essential hypertension, and thyroid cancer S/P thyroidectomy (2009) who was admitted to [facility] for redo laparoscopic paraesophageal hernia repair with redo Marcos fundoplication secondary to refractory GERD. She underwent this procedure successfully on 06/15/24 without reported complications, however, her hospital course has been complicated by chest pain and right shoulder pain (though this has improved since onset 06/15/24). Vital signs demonstrate normal heart rate and blood pressure, intermittently requiring 1-2L O2 NC to maintain appropriate oxygen saturation. Lab studies unremarkable, including troponin normal on consecutive measurements (7 --> 7, obtained about 1 hour apart). CXR demonstrates right basilar volume loss. ECG obtained and shows normal sinus rhythm, possible old inferior infarct, and yff-qjdslowyNV-B abnormalities - compared to prior ECG (05/2024) inferior Q waves are more pronounced, ST-T flattening and T-wave inversions present in lateral leads. ECG obtained this evening (about 6 hours after initial) without dynamic/ischemic changes. Her current inpatient medications including atenolol 12.5 mg every morning & 25 mg every evening and therapeutic enoxaparin (on warfarin chronically). Simvastatin is currently being held. 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 She is not very physically active, but has not noticed recent exertional chest pain or dyspnea beyond baseline - she believes she had a pharmacologic stress test within the past 2-3 yearswhich was normal (unable to find in EMR). She reports right chest pain that has been present for atleast weeks prior to this procedure - however, it seems to have acutely worsened since the procedure. She describes the pain as radiating to her right shoulder, worse when taking deep breaths, relieved with opioids. She otherwise is not having fevers/chills, dizziness, dyspnea, orthopnea/PND, or lower extremity swelling. She reports a remote history of RLE DVT, but does not believe that she has ever had a PE. Based on available clinical evidence, do not suspect that patient is having an acute coronary syndrome - moreover, unlikely that chest pain is cardiac in origin. Differential diagnosis includes pleuritic-type chest pain exacerbated by operative intervention, notably though this was present prior toprocedure as well. For now, do not recommend any further testing - if she were to have a significant change in her chest pain or change in clinical status, then it would be reasonable to obtain repeat troponin and ECG. Similiarly, some concern for PE given FVL, pleuritic chest pain, and intermittent O2 requirement. CT PE could be considered if clinical/respiratory status is worsening, though I don't think this is necessary now - and she already has an indication for lifelong anticoagulation. Would continue atenolol and simvastatin as deemed appropriate by primary team - patient reportedly haslocal cardiology follow-up 07/2024. TTE (10/09/22): [images not available] LVEF 55%, indeterminate diastolic function Normal RV size and systolic function Bicuspid aortic valve without aortic stenosis/regurgitation Normal aortic root Estimated PASP 40 mmHg No pericardial effusion Patient will be formally evaluated by cardiology consult team 06/18/24 AM - please reach out with acute questions or clinical concerns in the interim. Juan Tyler DO Fellow - Cardiovascular Medicine [facility] Work Phone: [phone] NoteAcute Coronary Syndrome (ACS): Initial Evaluation and Management: [email or web address] [email or web address] [facility]01-16-2025 Hospital Discharge instructions* Discharge Instructions* Garfield Ingram MD - 06/17/2024 2:49 PM EST Images from the original note were not included. Home Care After Hiatal Hernia Repair/Paraesophageal Hernia Repair with Fundoplication You just had surgery to treat gastroesophageal reflux disease (GERD) where the top of your stomach was wrapped around the bottom of your esophagus or food tube. Follow these care guidelines during your recovery. If you have any questions or concerns, please call [phone]. If you need to have paperwork completed to apply for disability, the office fax is [phone]. After surgery You should expect to be in the hospital at least 1 night after your surgery. The staff will review your care instructions with you. Please ask if you have any questions, or if there is anything that you do not understand. Activity Walk as often as you are able to reduce the risk of blood clots or pneumonia, and to improve healing. Talk to your doctor about when it is okay for you to return to work. Do not drive if you are taking prescription pain medicine, often 1 to 2 weeks after surgery. Avoid lifting, pushing or pulling anything that weighs more than 10 pounds for 2 weeks after surgery. A gallon of milk weighs about 8 pounds. Coughing and deep breathing Use your incentive spirometer at home for at least 2 weeks or until your cough is very dry. Call your doctor if you have more shortness of breath or blood in your mucus when coughing as thesecan be signs of pneumonia. Incision care Keep your incisions dry for 24 hours. Your incision can be left open to the air after 24 hours. If you have drainage, you can use a band-aid or gauze dressing. You can shower but avoid tub baths, hot tubs and swimming until your incisions are healed, often after 2 weeks. Do not remove the tapes, called steri strips, that hold your incisions closed. The strips should come loose and fall off on their own in about 7 to 10 days. If they are still in place after 10 days, you can remove them. Wash your incisions gently with soap and water. Rinse well with clean water and pat them dry with aclean towel. Do not use oils, powders or lotions on your incisions until they are healed. Check your incisions each day for any signs of infection, such as redness, swelling, increased painor increased drainage. Medicines Take liquid medicine until you are able to swallow more easily, often 2 to 4 weeks after surgery. Take the pill study coordinator home with you from the hospital. If you have pills, check with your pharmacist or primary care doctor to be sure you can crush them to add them to liquids to ease swallowing. Take your pain medicine as ordered as you need to keep your pain under control. If you are to take an antibiotic, finish all of the medicine, even if you do not feel you have an infection. Take your medicines as ordered. Nutrition Eating and drinking are lopez to getting enough calories and other nutrients to help you heal. To protect the area, prevent more swelling and to promote healing, follow a diet of soft, easy to swallow and easily chewed foods for at least 4 to 6 weeks after surgery. Ask for the handout, Diet after Marcos Fundoplication Surgery for more information. You will be on a liquid diet at first. Sit up when eating and drinking, and sit up for 20 to 30 minutes after eating. Eat slowly and chew your food well. Eat smaller meals every couple hours instead of 3 larger meals. Avoid carbonated drinks and limit foods that may cause more abdominal gas, such as high fat foods, beans and vegetables, like broccoli, cabbage and cauliflower. Follow up It is important to go to your follow up appointment after surgery. Refer to your After Visit Summary for your appointment date and time. When to call the doctor Call your doctor right away if you have: Problems drinking or eating Signs of infection at your incision site, such as redness, tenderness, more pain or more drainage A fever of 100.4 degrees F (38 degrees C) or higher Reflux symptoms come back or continue Abdominal pain or swelling, especially after coughing Tenderness in abdomen or belly feels hard Bowel movements are black or bloody Pain or tenderness in your legs Chest pain or any problems breathing Questions/Concerns/Contacts During normal business hours 8am-4pm: Call [phone]. After 4pm weekdays and on weekends: Call the [phone] for the on-call General Surgery Resident. Follow Up Care Options at [facility] Your follow up appointment should be scheduled 2-3 weeks after your surgery date. If you have not previously scheduled for a follow-up visit you can be scheduled by contacting [phone]. If you have any non-urgent questions or concerns: call your doctor's office and leave a message for your provider, or send a message to your provider via [employer] If you have a life-threatening concern, please call 911 or go to your nearest emergency department. If you have a serious, yct-teoh-qsatcqoxkgu concern that needs to be addressed more quickly, here are [facility]'s same-day services to meet your needs: Advanced Urgent Care Convenient, walk-in health care for common conditions as well as for serious, gwn-tfff-qifrosgbuns illnesses and injuries. No appointment is needed, but you can schedule one by calling [phone] or through [email or web address]. Find locations and check wait times at [email or web address]. Staffed by emergency department providers and advanced practice providers. [facility] M-F: 8 a.m.-9:30 p.m. S-S: 8 a.m.-7:30 p.m. [facility] [place] M-F: 8 a.m.-9:30 p.m. S-S: 8 a.m.-7:30 p.m. [facility] M-F: 4-9:30 p.m. S-S: 10 a.m.-5:30 p.m. [facility] Outpatient [facility] M-F: 8 a.m.-9:30 p.m. S-S: 8 a.m.-7:30 p.m. In-Home Immediate Care In partnership with [facility] In-home urgent health care, ready to treat common conditions as well as serious, bvc-tezs-vcpdiavwdle illnesses and injuries. Staffed by nurse practitioners and physician assistants. Daily: 8 a.m.-10 p.m., including holidays. Call [phone] to schedule an appointment at your home. Additional information: [email or web address]. [facility] General Surgery [address] [place], [place] [id number] [facility] General Surgery 11th Floor [address] [place] [address] [facility] Outpatient [facility] [place] General Surgery [address] [place], [place] [address] documented in this encounterOSU [facility]01-[facility] NoteAcute Coronary Syndrome (ACS): Initial Evaluation and Management: [email or web address] [email or web address] [facility]01-16-[facility] History of Present illness Narrative* Garfield Ingram MD - 06/17/2024 12:00 PM EST General Surgery Progress Note S: No acute events. On 2 L NC overnight, does not wear oxygen at home. States she continues to havesome upper abdomen and right shoulder pain, though improving somewhat. She endorses ease of eating,drinking, and swallowing. Denies fevers, chills, nausea, vomiting. O: Blood pressure 102/60, pulse 79, temperature 98 F (36.7 C), temperature source Oral, resp. rate 15,height 1.499 m (4' 11), weight 62.3 kg (137 lb 6.4 oz), SpO2 96%. I/O last 3 completed shifts: In: 985 [P.O.:985] Out: 1050 [Urine:1050] PE: Gen: NAD, resting comfortably Cardiac: RRR Lungs: no respiratory distress on 2 L NC Abd: soft, NT, ND, incision is c/d/I, minimal strikethrough Ext: warm, no edema Labs: WBC/Hgb/Hct/Plts: 5.51/10.6/33.4/173 (06/17 239) Na/K+/Phos/Mg/Ca: 140/3.8/--/--/-- (06/17 239) Bun/Creat/Cl/CO2/Glucose: 11/0.71/110/24/93 (06/17 0240) A/P: Anusha Vidal is a 74 y.o. female with a history fGastroesophageal reflux disease with esophagitis without hemorrhage, paraesophageal hernia, Factor V Leiden, Bicuspid aortic valve, Essential hypertension, Mixed hyperlipidemia, History of TIA (transient ischemic attack), and postoperative hypothyroidism 2 Days Post-Op s/p Procedure(s) (LRB): REVISION REPAIR HERNIA PARAESOPHAGEAL LAPAROSCOPIC W/O MESH (N/A) Plan for Today: -Diet: DIET LIQUID Liquid Consistency Spoon Thick; No Carbonated Beverages -FEN: mIVF -Pain control: multimodal -Abx: None -Activity: OOB, encourage IS, ambulate as able - Wean oxygen - CXR, ECG, and troponins to evaluate continued shoulder/chest pain - Therapeutic lovenox, on coumadin at home. Will plan to bridge back to coumadin per PCP's instruction after discharge Complexity. . Any conditions listed below are present on admission unless otherwise specified. . Disposition: will likely discharge if cardiac workup is negative, pending weaning oxygen, surgical recovery, likely later today Garfield Ingram General Surgery PGY-1 #[id number] * Garfield Ingram MD - 06/16/2024 10:27 AM EST Gen/GI Surgery Progress Note S: No acute events. Patient states her pain has improved, particularly in her right chest/upper abdomen which was more sore yesterday after the OR. She denies nausea/vomiting and has tolerating PO intake. She denies fevers or chills. O: Blood pressure 99/57, pulse 74, temperature 98 F (36.7 C), temperature source Infrared, resp. rate 16, height 1.499 m (4' 11), weight 58.6 kg (129 lb 3.2 oz), SpO2 94%. I/O last 3 completed shifts: In: 4583.8 [P.O.:750; I.V.:3733.8; IV Piggyback:100] Out: 975 [Urine:950] PE: Gen: NAD, resting comfortably Cardiac: RRR Lungs: no respiratory distress Abd: soft, NT, ND, incision is c/d/I with steri strips, minimal strikethrough Ext: warm, no edema, no cyanosis Labs: WBC/Hgb/Hct/Plts: 6.44/11.1/34.4/193 (06/16 1000) Na/K+/Phos/Mg/Ca: 141/4.3/--/--/-- (06/16 318) Bun/Creat/Cl/CO2/Glucose: 10/0.63/110/24/97 (06/16 318) A/P: Anusha Vidal is a 74 y.o. female 1 Day Post-Op s/p Procedure(s) (LRB): REVISION REPAIR HERNIA PARAESOPHAGEAL LAPAROSCOPIC W/O MESH (N/A) Plan for Today: -Diet: DIET LIQUID Liquid Consistency Spoon Thick; No Carbonated Beverages -FEN: mIVF at 75 ml/hr. -Pain control: multimodal -Abx: None -Activity: OOB, encourage IS -DVT: therapeutic lovenox q12h 2/2 factor v leiden, SCDs while in bed Complexity. . Any conditions listed below are present on admission unless otherwise specified. . Disposition: pending clinical recovery, likely tomorrow 06/17/2024 Martina Romero MD General Surgery PGY-1 #[id number] documented in this encounterOSU [facility]25 Nurse Note* Nursing Notes - Sandra Kincaid RN - 06/17/2024 5:31 AM EST Attempted to walk patient in the [place], but patient appeared sob and weak, c/o dizziness. Sat 86-93%on room air. Pt using IS and coughing up phlegm. Only voided 100ml dark yellow urine. Dr Garfield Ingrma notified of this. MD to assess on rounds. Pt currently resting in bed on 2L nc at 96%. Sandra Kincaid RN [facility]01-[facility] Nurse Note* Nursing Notes - Sandra Kincaid RN - 06/16/2024 9:[address] Hector Perry notified via secure chat of bp 104/57 and sbp's being in the 90's most of the day and asked if we should hold the atenolol.Sandra Kincaid RN [facility]01-15-2025 Nurse Note* Nursing Notes - Anaid Lopez RN - 06/16/2024 6:54 PM EST Patient up ambulating in hallway with stand by assist of one staff member. Gait slow and steady. [facility]01-14-[facility] Plan of care note* Plan of Care - Garfield Ingram MD - 06/15/2024 5:14 PM EST Surgery Post-Op Check Note Anusha Vidal is a 74 y.o. yr old female, who is now POD#0 s/p Procedure(s) (LRB): REVISION REPAIR HERNIA PARAESOPHAGEAL LAPAROSCOPIC W/O MESH (N/A). There were no complications to the procedure, and the patient tolerated it well. Arrived to the floor in stable condition. Subjective: Patient resting comfortably in bed. Patient awake and participatory in clinical exam. Nausea is currently controlled with prn medications. Pain is controlled on current regimen, states her pain is primarily right upper abdomen. Patient is breathing comfortably on room air and denied anySOB or chest pain. Family is at the bedside and has no questions or concerns at this time. Objective: BP 111/65 (BP Location: Right arm, BP Position: Lying) Pulse 72 Temp 98 F (36.7 C) (Infrared) Resp 16 Ht 1.499 m (4' 11) Wt 58.6 kg (129 lb 3.2 oz) SpO2 91% BMI 26.10 kg/m Smoking Status Never Exam: GEN: NAD, laying comfortably in bed CV: RRR, HDS Pulm: No respiratory distress Abd: Soft, appropriately tender, mildly-distended. Laparoscopic incisions clean,dry, and intact with steri strips overlying, minimal strikethrough Ext: No LE swelling/edema, distal pulses 2+ Neuro: No focal deficits Assessment: 74 y.o. yr old female now POD 0 s/p Procedure(s) (LRB): REVISION REPAIR HERNIA PARAESOPHAGEAL LAPAROSCOPIC W/O MESH (N/A). Currently stable on the floor. Plan: - DIET CLEAR LIQUID No Carbonated Beverages DIET LIQUID Liquid Consistency Spoon Thick; No Carbonated Beverages - Pain control: multimodal - Herrera: none. Voiding appropriately - Patient advised to call with any concerns - Will continue to monitor Garfield Ingram MD General Surgery Pager [phone] [facility]01-14-2025 Surgery Postoperative evaluation and management note* Op Note - Wesley Bui MD - 06/15/2024 4:31 PM EST General Surgery Operative Report 06/15/2024 Surgeon: Wesley Bui MD Pallet Stone Inserter: Ayesha Garcia MD, Ml Palma MD Pre-operative Diagnosis: Recurrent Paraesophageal Hernia, GERD Post-operative Diagnosis: Recurrent Paraesophageal Hernia, GERD Procedure: Redo Laparoscopic Paraesophageal Hernia Repair with Redo Marcos Fundoplication Anesthesia: GETA Blood Loss: Minimal Operative Indications: This is a 74-year-old female with a longstanding history of gastroesophagealreflux refractory to medical therapy and previous fundoplication who subsequently developed a symptomatic hernia recurrence. Given her symptoms and results of objective testing, the decision was madeto proceed with elective laparoscopic redo paraesophageal hernia repair and redo Marcos fundoplication. Details of procedure: After informed consent was obtained, the patient was taken to the operating, placed in the supine split-leg position on the operating room table. Following the induction of general anesthesia, the patient's abdomen was prepped and draped in the usual sterile fashion and intraperitoneal access was gained using a left upper quadrant Veress needle approach. The abdomen insufflat ed to a pressure of 15 mmHg and an 11-mm camera port was placed 15 cm caudal to the xiphoid processand just to the left of the midline. Initial inspection revealed no evidence of Veress needle injury or unexpected intra-abdominal pathology and the remainder of the working ports were placed. These included a 12-mm port in the left upper quadrant, a 5-mm port in the lateral left midabdomen, a 5-mmport in the right upper quadrant and the Ananda liver retractor was placed in the subxiphoid position and used to retract the left lobe of the liver and expose the esophageal hiatus. The hiatal dissection was begun in the pars flaccida of the lesser omentum. This was opened and adhesions to the liver were divided to expose the right yadira. The medial border of the right yadira was dissected from the herniated stomach down to the level of the crural confluence using blunt and sharpdissection. The adhesions to the crural arch were then opened and attention was turned to the greater curvature of the stomach. The remaining short gastric vessels were divided using the harmonic scalpel to enter the lesser sac. The posterior adhesions were lysed to level of the left yadira. The leftcrus was dissected free from the herniated stomach, and the previous fundoplication was reduced into the abdominal cavity and a complete circumferential esophageal dissection was achieved. A Camahco drain was then placed around the esophagus and used to retract the esophagus in a caudal direction. The esophagus was then mobilized high in the mediastinum using blunt and sharp dissection. There wasample length of infra-abdominal esophagus to perform a fundoplication. The previous fundoplication was taken down sharply and dissected from the esophagus, and the stomach was returned to its normal anatomic position. Attention was then turned to the crural closure. A posterior cruroplasty was performed using interrupted 0 Ethibond pledgeted sutures. When this was completed the fundus of the stomach was passed around behind the esophagus and a 56-Andorran Carbajal dilator was passed down the esophagus and into the stomach and a floppy Marcos fundoplication was performed over this large dilator. The fundoplicationwas created by taking a bite of the greater curvature of the stomach, the esophagus and the greatercurvature of the stomach. This was performed using 3 sutures to create a 2 cm wrap. When this was completed the bougie was removed and the [place]agh drain was removed from around the esophagus. The patient was placed back in the supine position and the Ananda liver retractor was removed to allow the liver to return to its normal position. All of the area was inspected, there was no evidence of any bleeding from the operative site and all the ports were removed under direct vision without bleedi ng from the abdominal wall. The insufflation was then allowed to escape the abdomen and the skin incisions were closed using interrupted subcuticular sutures. The patient tolerated the procedure well, was extubated in the operating room, transported to the recovery room in stable condition. All spon ge, needle and instrument counts were correct at the end of the case. [facility]01-14-2025 Nurse Surgical operation note* Cheko Llamas RN - 06/15/2024 2:14 PM EST Patient arrived to [facility] PACU @ 1350 Family updated @ 1415 via chat message to pt Dr aldridge called for sign out @ 1452 Report called to Cecile RN @ 1500 Patient left PACU via cart @1312 [facility]01-14-2025 Nurse Note* Cheko Llamas RN - 06/15/2024 2:14 PM EST Patient arrived to [facility] PACU @ 1350 Family updated @ 1415 via chat message to pt Dr aldridge called for sign out @ 1452 Report called to Cecile RN @ 1500 Patient left PACU via cart @1312 [facility] Postoperative evaluation and management note* Brief Op Note - Ml Palma MD - 06/15/2024 1:39 PM EST Anusha Vidal ([id number]) PRE OPERATIVE DIAGNOSIS Paraesophageal hernia [K44.9] POST OPERATIVE DIAGNOSIS Paraesophageal hernia [K44.9] PROCEDURE PERFORMED Procedure(s) (LRB): REVISION REPAIR HERNIA PARAESOPHAGEAL LAPAROSCOPIC W/O MESH (N/A) PRIMARY CLOSURE Yes INTRAOPERATIVE FINDINGS Lap redo PEHR with Marcos fundoplication SURGEON Surgeons and Role: * Wesley Bui MD - Primary * Ml Palma MD - Fellow ANESTHESIOLOGIST Anesthesiologist: Jono Aldridge MD CONCRETE BUCKET LOADER: Ankur Acosta APRN-CONCRETE BUCKET LOADER Evening Or Night Nurse Supervisor Assisting: Marcel Bennett MD SURGICAL STAFF Assembler Product: Rosenda Valdez RN; Elan Zeng RN Relief Scrub: Sofiya Infante Scrub Person: Liat Murrell Resident Assisting: Ayesha Garcia MD COMPLICATIONS None ESTIMATED BLOOD LOSS Minimal SPECIMENS * No specimens in log * Ml Palma MD June 15, 2024 1:[address] [facility] Work Phone: [phone]) 854-691601-14-2025 History and physical note* Krystal Villalba MD - 06/15/2024 9:33 AM EST PERIOPERATIVE SURGICAL HISTORY AND PHYSICAL UPDATE Pre-op Diagnoses: Paraesophageal hernia [K44.9] Procedure(s): REVISION REPAIR HERNIA PARAESOPHAGEAL LAPAROSCOPIC W/O MESH Surgeon(s): Surgeons and Role: * Wesley Bui MD - Primary History and Physical Update: There were no vitals taken for this visit. I have reviewed Anusha Vidal's medical, surgical and other pertinent history, and I have updated the medication and allergy information in the computerized patient record. I have examined the patient, reviewed the previous H&P completed on date (05/21/2024) and thereare no changes. She is slightly anxious about the procedure. She last took her warfarin on 06/09/2024. Gen: No acute distress, resting comfortably in bed Resp: Breathing comfortably on room air CV: Normal rate, hemodynamically stable Abd: Soft, non-tender, non-distended Ext: Warm and well perfused Today's surgical history and physical update was completed by Krystal Villalba MD, 06/15/2024, 9:[address] [facility] Work Phone: 1(959) 162-458901-14-2025 History and physical note* Krystal Villalba MD - 06/15/2024 9:33 AM EST PERIOPERATIVE SURGICAL HISTORY AND PHYSICAL UPDATE Pre-op Diagnoses: Paraesophageal hernia [K44.9] Procedure(s): REVISION REPAIR HERNIA PARAESOPHAGEAL LAPAROSCOPIC W/O MESH Surgeon(s): Surgeons and Role: * Wesley Bui MD - Primary History and Physical Update: There were no vitals taken for this visit. I have reviewed Anusha Vidal's medical, surgical and other pertinent history, and I have updated the medication and allergy information in the computerized patient record. I have examined the patient, reviewed the previous H&P completed on date (05/21/2024) and thereare no changes. She is slightly anxious about the procedure. She last took her warfarin on 06/09/2024. Gen: No acute distress, resting comfortably in bed Resp: Breathing comfortably on room air CV: Normal rate, hemodynamically stable Abd: Soft, non-tender, non-distended Ext: Warm and well perfused Today's surgical history and physical update was completed by Krystal Villalba MD, 06/15/2024, 9:34 AM. [facility] History and physical note* Anton Tyson, FIELD SERVICE CONSULTANT-PUBLICATIONS EDITOR - 05/21/2024 9:45 AM EST Images from the original note were not included. [facility] Date of Surgery: 06/15/2024 Surgeon: Dr. Bui Pre-Op Diagnosis: Gastroesophageal reflux disease with esophagitis without hemorrhage, Paraesophageal hernia Planned Procedure: LS Redo PEH Repair Anesthesia Type: planned for General Anesthesia SUMMARY AND RECOMMENDATIONS The patient is medically optimized at the time of this visit. Strict NPO Diet recommended. Anusha Vidal is a 74 y.o. year old patient with a history the following diagnoses which increase her risk for perioperative complications. The patient is being referred for pre operative evaluationand optimization. The relative status of the medical conditions are further explained in this note. 1. Preop exam for internal medicine 2. Gastroesophageal reflux disease with esophagitis without hemorrhage 3. Paraesophageal hernia 4. Factor V Leiden 5. Bicuspid aortic valve 6. Essential hypertension 7. Mixed hyperlipidemia 8. History of TIA (transient ischemic attack) 9. Postoperative hypothyroidism ANESTHESIA and AIRWAY Anesthesia alerts: SCS, contrast dye/Iodine allergy} Personal history of problems related to anesthesia (ex.Malignant Hyperthermia): no Family History of problems related to anesthesia (ex.Malignant Hyperthermia): no Pacer/AICD: no Nerve Stimulator (DBS, PNS, SCS): SCS-> for back pain, pt will bring remote DOS Parenteral Access: no Glaucoma: no GERARDO: no STOP-BANG Risk Assessment Do you snore - No Are you frequently tired during the day? - No Have you been observed gasping or choking while asleep? - No Do you have high blood pressure? - Yes Age more than 50? - Yes Gender male? - No Neck circumference greater than 40 cm? - No Neck Circumference (cm): 32 BMI more then 35? - No Body mass index is 26.36 kg/m . Mallampati class - 2 TM Distance - 3 FB Oral Opening - 3 FB Teeth - upper dental permanent implant Cervical range of motion - within normal limits Neck circumference - Neck Circumference (cm): 32 Allergies and adverse drug reactions Allergies Allergen Reactions Ivp Dye, Iodine Containing Hives Other Reaction(s): WELTS ON FACE Levofloxacin Other Reaction(s): ABDOMINAL PAIN, Other: See Comments Abd pain Naproxen Other Reaction(s): GI Upset, STOMACH PAIN ANESTHESIA/AIRWAY ASSESSMENT AND PLAN- # Anesthesia Alerts as above if applicable # Patient is at Low (0-2) risk for GERARDO # Previous Airway Details below (if available) CARDIOVASCULAR Do you take Aspirin or other antiplatelet agents? no Do you take anti-coagulations? yes - coumadin Beta Iván: yes - atenolol Patient denies a history of cardiac events or OH. Denies chest pain with ambulation or ADLs around the house. Denies palpitations, denies LE edema, denies orthopnea. ASSESSMENT AND PLAN- # Functional status - METS: Moderate: 4-7 METS functional status. 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 # Pre-operative Risk Evaluation: Patient Meets the Following RCRI Criteria (RCRI): None: 0 criteria suggesting a 3.9% risk of major cardiac events or within 30 days. Anusha Vidal is at a Acceptable risk based on the RCRI above. Patient can achieve METS > 4. Per ACC/AHA guidelines, the patient requires no further testing at this time. The patient is at elevated risk for the following perioperative complications not captured by the RCRI: N/A # TIA: PT reports mini-stroke several years ago prior to being placed on coumadin -denies residual deficits # Essential HTN/palpitations -managed on atenolol -denies palpitations since starting atenolol -appears fairly stable BP Readings from Last 3 Encounters: 05/21/24 148/78 05/14/24 151/76 04/16/24 144/77 -following cardiology at [place] # Bicuspid aortic valve: patient follows with [place] [facility] cardiology for monitoring -no stenosis on 09/2022 ECHO -no murmur heard on exam # HLD: Chronic/stable -managed on simvastatin -cardiology documented normal stress test 06/18/2023 per OVN seen 11/30/2023 in Media tab (OVN reviewed) CARDIAC TESTING and REVIEW OF PREVIOUS CARDIAC TESTING/IMAGING (all testing below -personally reviewed) EKG : Sinus bradycardia with a HR of 58. No LVH. No ST changes noted as interpreted by [place] ECHO, 10/09/2022 PULMONARY ASSESSMENT AND PLAN: Patient denies any shortness of breath or breathing issues PULMONARY TESTING AND REVIEW OF RECORDS if any (all testing below -personally reviewed) SOCIAL/SUBSTANCE USE HISTORY Social History Tobacco Use Smoking Status Never Smokeless Tobacco Never Social History Substance and Sexual Activity Alcohol Use Never Social History Substance and Sexual Activity Drug Use Never Does the patient Vape? no ASSESSMENT AND PLAN: Encouraged to stop all ETOH use at least 5 days prior to surgery and Marijuana use 3 days prior to surgery. HEMATOLOGY History of DVT/PE - Yes Are you a Jehovah Witness? - no In case of surgeons plan or unforseen emergency, are you okay with receiving blood products? - yes Have you ever been diagnosed with any bleeding disorders in the past (Hemophilia A or B, Von Willebrand Disease)? - No Patient has not received blood transfusions in the past 90 days. 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 Calcium Citrate-Vitamin D (CALCIUM + D PO) Take by mouth daily every morning. Levothyroxine 75 MCG tablet TAKE 1 TABLET BY MOUTH IN THE MORNING ON AN EMPTY STOMACH Multiple Vitamin (MULTI VITAMIN PO) Take 1 tablet by mouth daily every morning. omeprazole [address] capsule Take 1 capsule by mouth 2 times daily. Polyethylene glycol 17 GM/SCOOP Powder powder 17 g as needed. simvastatin 40 MG tablet take 1 tablet by mouth at bedtime for cholesterol tiZANidine 4 MG tablet Take 1 tablet by mouth at bedtime. Warfarin 3 MG tablet Take 1 tablet by mouth every evening. 3 mg a day except Friday is 2 mg Medication A/P - Instructions for preoperative medications given to the patient in AVS. LABS Orders Placed This Encounter CBC, EDIF, PLATELET CHEM 6 (LYTES, BUN CREA) CBC AND ELECTRONIC DIFF PA ECG, CLINIC PERFORMED Lab A/P - Lab Results Component Value Date SODIUM 141 05/21/2024 POTASSIUM 4.5 05/21/2024 CHLORIDE 109 (H) 05/21/2024 CO2 28 05/21/2024 BUN 9 05/21/2024 CREATSERUM 0.76 05/21/2024 Lab Results Component Value Date WBC 3.85 (L) 05/21/2024 HGB 13.2 05/21/2024 HCT 41.1 05/21/2024 PLATELET 219 05/21/2024 MCV 96.7 05/21/2024 Thank you for allowing us to participate in the care of Anusha Vidal. Total time spent on the day of patient's visit was 60 minutes. This includes but is not limited to time spent preparing to see the patient, precharting, reviewing outside medical records, time spent in the patient's room doing a history and physical exam along with medication education, ordering lab test and requesting medical information as well as interpreting lab results and testing completed at [facility] and outside facilities through Care Everywhere. All the labs reviewed have been summarized and included in my history above. Note to patient: The Cures Act makes medical notes like these available to patients inthe interest of transparency. However, be advised this is a medical document. It is intended as [id number] communication. It is written in medical language and may contain abbreviations or verbiagethat are unfamiliar. It may appear blunt or direct. Medical documents are intended to carry relevant information, facts as evident, and the clinical opinion of the practitioner. [employer] dictation software may have been used to write this note. Please excuse any errors that may have occurred as a result of the dictation. Anton Tyson, WINIFRED-PUBLICATIONS EDITOR [facility] [address] [facility] Review of Systems (OSUROS) Review of Systems Constitutional: Negative for chills and fever. HENT: Negative for dental problem, rhinorrhea, sore throat and trouble swallowing. Respiratory: Negative for cough and shortness of breath. Cardiovascular: Negative for chest pain, palpitations and leg swelling. Gastrointestinal: Negative for abdominal pain, blood in stool, constipation, diarrhea, nausea and vomiting. Genitourinary: Negative for difficulty urinating, dysuria and hematuria. Skin: Negative for rash and wound. Neurological: Negative for dizziness, light-headedness and headaches. Hematological: Does not bruise/bleed easily. All other pertinent positives are also in the note above. Physical Examination (PHYSEXAM) Blood pressure 148/78, pulse 54, temperature 97.6 F (36.4 C), resp. rate 16, height 1.499 m (4' 11), weight 59.2 kg (130 lb 8 oz), SpO2 96%. Physical Exam Vitals reviewed. Constitutional: General: She is not in acute distress. HENT: Mouth/Throat: Mouth: Mucous membranes are moist. Pharynx: Oropharynx is clear. No posterior oropharyngeal erythema. Eyes: Extraocular Movements: Extraocular movements intact. Conjunctiva/sclera: Conjunctivae normal. Pupils: Pupils are equal, round, and reactive to light. Neck: Vascular: No carotid bruit. Cardiovascular: Rate and Rhythm: Normal rate and regular rhythm. Pulses: Normal pulses. Heart sounds: Normal heart sounds. Pulmonary: Effort: Pulmonary effort is normal. Breath sounds: Normal breath sounds. No wheezing or rhonchi. Abdominal: General: Bowel sounds are normal. Palpations: Abdomen is soft. Tenderness: There is no abdominal tenderness. Musculoskeletal: Cervical back: Normal range of motion and neck supple. No tenderness. Right lower leg: No edema. Left lower leg: No edema. Lymphadenopathy: Cervical: No cervical adenopathy. Skin: General: Skin is warm and dry. Findings: No erythema or rash. Neurological: General: No focal deficit present. Mental Status: She is alert and oriented to person, place, and time. Cranial Nerves: No cranial nerve deficit. Past Medical History: Diagnosis Date Arrhythmia Arthritis Benign neoplasm of stomach Bicuspid aortic valve Blood dyscrasia Chronic back pain Colonic polyp COPD (chronic obstructive pulmonary disease) Coronary artery disease Diverticulosis AQUINO (dyspnea on exertion) Duodenitis without hemorrhage DVT (deep venous thrombosis) Essential hypertension Factor V Leiden GERD (gastroesophageal reflux disease) Hiatal hernia High cholesterol Hyperthyroidism IBS (irritable bowel syndrome) Mini stroke Post-menopausal bleeding RUQ pain Stroke Syncope No past surgical history on file. Patient Care Team: Adelina Alvarenga DO as PCP - General (Family Medicine) Family History Problem Relation Age of Onset Diabetes Mother Sudden Cardiac Father Bleeding or Clotting Problems Paternal Uncle Breast Cancer Maternal Aunt Social History Socioeconomic History Marital status: Tobacco Use Smoking status: Never Smokeless tobacco: Never Vaping Use Vaping status: Never Used Substance and Sexual Activity Alcohol use: Never Drug use: Never Other Topics Concern Occupational Exposure No Hobby Hazards No [facility]12-20-2024 History and physical note* LIA Colin - 05/21/2024 9:45 AM EST Images from the original note were not included. PREOPERATIVE ASSESSMENT H&P [facility] Ginger [place] Name: Anusha Vidal Date of Surgery: 06/15/2024 Surgeon: Dr. Bui Pre-Op Diagnosis: Gastroesophageal reflux disease with esophagitis without hemorrhage, Paraesophageal hernia Planned Procedure: LS Redo PEH Repair Anesthesia Type: planned for General Anesthesia SUMMARY AND RECOMMENDATIONS The patient is medically optimized at the time of this visit. Strict NPO Diet recommended. Anusha Vidal is a 74 y.o. year old patient with a history the following diagnoses which increase her risk for perioperative complications. The patient is being referred for pre operative evaluationand optimization. The relative status of the medical conditions are further explained in this note. 1. Preop exam for internal medicine 2. Gastroesophageal reflux disease with esophagitis without hemorrhage 3. Paraesophageal hernia 4. Factor V Leiden 5. Bicuspid aortic valve 6. Essential hypertension 7. Mixed hyperlipidemia 8. History of TIA (transient ischemic attack) 9. Postoperative hypothyroidism ANESTHESIA and AIRWAY Anesthesia alerts: SCS, contrast dye/Iodine allergy} Personal history of problems related to anesthesia (ex.Malignant Hyperthermia): no Family History of problems related to anesthesia (ex.Malignant Hyperthermia): no Pacer/AICD: no Nerve Stimulator (DBS, PNS, SCS): SCS-> for back pain, pt will bring remote DOS Parenteral Access: no Glaucoma: no GERARDO: no STOP-BANG Risk Assessment Do you snore - No Are you frequently tired during the day? - No Have you been observed gasping or choking while asleep? - No Do you have high blood pressure? - Yes Age more than 50? - Yes Gender male? - No Neck circumference greater than 40 cm? - No Neck Circumference (cm): 32 BMI more then 35? - No Body mass index is 26.36 kg/m . Mallampati class - 2 TM Distance - 3 FB Oral Opening - 3 FB Teeth - upper dental permanent implant Cervical range of motion - within normal limits Neck circumference - Neck Circumference (cm): 32 Allergies and adverse drug reactions Allergies Allergen Reactions Ivp Dye, Iodine Containing Hives Other Reaction(s): WELTS ON FACE Levofloxacin Other Reaction(s): ABDOMINAL PAIN, Other: See Comments Abd pain Naproxen Other Reaction(s): GI Upset, STOMACH PAIN ANESTHESIA/AIRWAY ASSESSMENT AND PLAN- # Anesthesia Alerts as above if applicable # Patient is at Low (0-2) risk for GERARDO # Previous Airway Details below (if available) CARDIOVASCULAR Do you take Aspirin or other antiplatelet agents? no Do you take anti-coagulations? yes - coumadin Beta Iván: yes - atenolol Patient denies a history of cardiac events or OH. Denies chest pain with ambulation or ADLs around the house. Denies palpitations, denies LE edema, denies orthopnea. ASSESSMENT AND PLAN- # Functional status - METS: Moderate: 4-7 METS functional status. 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 # Pre-operative Risk Evaluation: Patient Meets the Following RCRI Criteria (RCRI): None: 0 criteria suggesting a 3.9% risk of major cardiac events or within 30 days. Anusha Vidal is at a Acceptable risk based on the RCRI above. Patient can achieve METS > 4. Per ACC/AHA guidelines, the patient requires no further testing at this time. The patient is at elevated risk for the following perioperative complications not captured by the RCRI: N/A # TIA: PT reports mini-stroke several years ago prior to being placed on coumadin -denies residual deficits # Essential HTN/palpitations -managed on atenolol -denies palpitations since starting atenolol -appears fairly stable BP Readings from Last 3 Encounters: 05/21/24 148/78 05/14/24 151/76 04/16/24 144/77 -following cardiology at [place] # Bicuspid aortic valve: patient follows with [facility] cardiology for monitoring -no stenosis on 09/2022 ECHO -no murmur heard on exam # HLD: Chronic/stable -managed on simvastatin -cardiology documented normal stress test 06/18/2023 per OVN seen 11/30/2023 in Media tab (OVN reviewed) CARDIAC TESTING and REVIEW OF PREVIOUS CARDIAC TESTING/IMAGING (all testing below -personally reviewed) EKG : Sinus bradycardia with a HR of 58. No LVH. No ST changes noted as interpreted by [place] ECHO, 10/09/2022 PULMONARY ASSESSMENT AND PLAN: Patient denies any shortness of breath or breathing issues PULMONARY TESTING AND REVIEW OF RECORDS if any (all testing below -personally reviewed) SOCIAL/SUBSTANCE USE HISTORY Social History Tobacco Use Smoking Status Never Smokeless Tobacco Never Social History Substance and Sexual Activity Alcohol Use Never Social History Substance and Sexual Activity Drug Use Never Does the patient Vape? no ASSESSMENT AND PLAN: Encouraged to stop all ETOH use at least 5 days prior to surgery and Marijuana use 3 days prior to surgery. HEMATOLOGY History of DVT/PE - Yes Are you a Jehovah Witness? - no In case of surgeons plan or unforseen emergency, are you okay with receiving blood products? - yes Have you ever been diagnosed with any bleeding disorders in the past (Hemophilia A or B, Von Willebrand Disease)? - No Patient has not received blood transfusions in the past 90 days. 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 Calcium Citrate-Vitamin D (CALCIUM + D PO) Take by mouth daily every morning. Levothyroxine 75 MCG tablet TAKE 1 TABLET BY MOUTH IN THE MORNING ON AN EMPTY STOMACH Multiple Vitamin (MULTI VITAMIN PO) Take 1 tablet by mouth daily every morning. omeprazole [address] capsule Take 1 capsule by mouth 2 times daily. Polyethylene glycol 17 GM/SCOOP Powder powder 17 g as needed. simvastatin 40 MG tablet take 1 tablet by mouth at bedtime for cholesterol tiZANidine 4 MG tablet Take 1 tablet by mouth at bedtime. Warfarin 3 MG tablet Take 1 tablet by mouth every evening. 3 mg a day except Friday is 2 mg Medication A/P - Instructions for preoperative medications given to the patient in AVS. LABS Orders Placed This Encounter CBC, EDIF, PLATELET CHEM 6 (LYTES, BUN CREA) CBC AND ELECTRONIC DIFF PA ECG, CLINIC PERFORMED Lab A/P - Lab Results Component Value Date SODIUM 141 05/21/2024 POTASSIUM 4.5 05/21/2024 CHLORIDE 109 (H) 05/21/2024 CO2 28 05/21/2024 BUN 9 05/21/2024 CREATSERUM 0.76 05/21/2024 Lab Results Component Value Date WBC 3.85 (L) 05/21/2024 HGB 13.2 05/21/2024 HCT 41.1 05/21/2024 PLATELET 219 05/21/2024 MCV 96.7 05/21/2024 Thank you for allowing us to participate in the care of Anusha Vidal. Total time spent on the day of patient's visit was 60 minutes. This includes but is not limited to time spent preparing to see the patient, precharting, reviewing outside medical records, time spent in the patient's room doing a history and physical exam along with medication education, ordering lab test and requesting medical information as well as interpreting lab results and testing completed at [facility] and outside facilities through [facility] Everywhere. All the labs reviewed have been summarized and included in my history above. Note to patient: The Cures Act makes medical notes like these available to patients inthe interest of transparency. However, be advised this is a medical document. It is intended as jfom-sk-euln communication. It is written in medical language and may contain abbreviations or verbiagethat are unfamiliar. It may appear blunt or direct. Medical documents are intended to carry relevant information, facts as evident, and the clinical opinion of the practitioner. [employer] dictation software may have been used to write this note. Please excuse any errors that may have occurred as a result of the dictation. Anton Tyson, FIELD SERVICE CONSULTANT-PUBLICATIONS EDITOR [facility] [address] [place] [address] Review of Systems (OSUROS) Review of Systems Constitutional: Negative for chills and fever. HENT: Negative for dental problem, rhinorrhea, sore throat and trouble swallowing. Respiratory: Negative for cough and shortness of breath. Cardiovascular: Negative for chest pain, palpitations and leg swelling. Gastrointestinal: Negative for abdominal pain, blood in stool, constipation, diarrhea, nausea and vomiting. Genitourinary: Negative for difficulty urinating, dysuria and hematuria. Skin: Negative for rash and wound. Neurological: Negative for dizziness, light-headedness and headaches. Hematological: Does not bruise/bleed easily. All other pertinent positives are also in the note above. Physical Examination (PHYSEXAM) Blood pressure 148/78, pulse 54, temperature 97.6 F (36.4 C), resp. rate 16, height 1.499 m (4' 11), weight 59.2 kg (130 lb 8 oz), SpO2 96%. Physical Exam Vitals reviewed. Constitutional: General: She is not in acute distress. HENT: Mouth/Throat: Mouth: Mucous membranes are moist. Pharynx: Oropharynx is clear. No posterior oropharyngeal erythema. Eyes: Extraocular Movements: Extraocular movements intact. Conjunctiva/sclera: Conjunctivae normal. Pupils: Pupils are equal, round, and reactive to light. Neck: Vascular: No carotid bruit. Cardiovascular: Rate and Rhythm: Normal rate and regular rhythm. Pulses: Normal pulses. Heart sounds: Normal heart sounds. Pulmonary: Effort: Pulmonary effort is normal. Breath sounds: Normal breath sounds. No wheezing or rhonchi. Abdominal: General: Bowel sounds are normal. Palpations: Abdomen is soft. Tenderness: There is no abdominal tenderness. Musculoskeletal: Cervical back: Normal range of motion and neck supple. No tenderness. Right lower leg: No edema. Left lower leg: No edema. Lymphadenopathy: Cervical: No cervical adenopathy. Skin: General: Skin is warm and dry. Findings: No erythema or rash. Neurological: General: No focal deficit present. Mental Status: She is alert and oriented to person, place, and time. Cranial Nerves: No cranial nerve deficit. Past Medical History: Diagnosis Date Arrhythmia Arthritis Benign neoplasm of stomach Bicuspid aortic valve Blood dyscrasia Chronic back pain Colonic polyp COPD (chronic obstructive pulmonary disease) Coronary artery disease Diverticulosis AQUINO (dyspnea on exertion) Duodenitis without hemorrhage DVT (deep venous thrombosis) Essential hypertension Factor V Leiden GERD (gastroesophageal reflux disease) Hiatal hernia High cholesterol Hyperthyroidism IBS (irritable bowel syndrome) Mini stroke Post-menopausal bleeding RUQ pain Stroke Syncope No past surgical history on file. Patient Care Team: Adelina Alvarenga DO as PCP - General (Family Medicine) Family History Problem Relation Age of Onset Diabetes Mother Sudden Cardiac Father Bleeding or Clotting Problems Paternal Uncle Breast Cancer Maternal Aunt Social History Socioeconomic History Marital status: Tobacco Use Smoking status: Never Smokeless tobacco: Never Vaping Use Vaping status: Never Used Substance and Sexual Activity Alcohol use: Never Drug use: Never Other Topics Concern Occupational Exposure No Hobby Hazards [facility]* Patient Instructions* Cheko Huang - 05/21/2024 9:45 AM EST PRIOR TO SURGERY INSTRUCTIONS Please follow these instructions prior to surgery to help us minimize delays and complications to your surgery THE FOLLOWING MEDICATIONS LABS, STUDIES, AND CONSULTATIONS WERE ORDERED TODAY: Orders Placed This Encounter PA ECG, CLINIC PERFORMED PREOPERATIVE MEDICATION INSTRUCTIONS Below are instructions for what to do with your medicines before your surgery/procedure. Take the medications marked take the morning of surgery/procedure with a sip of water. Please follow this table below for instructions on which medications to hold prior to surgery If you have a change in daily medications prior to surgery/procedure, call the [facility] at [phone]. Current Outpatient Medications Medication Sig Instructions Atenolol 25 MG tablet TAKE ONE-HALF TABLET BY MOUTH EVERY MORNING AND TAKE ONE TABLET EVERY EVENINGAT BEDTIME. Take morning of surgery Calcium Citrate-Vitamin D (CALCIUM + D PO) Take by mouth daily every morning. Do not take morning of surgery Levothyroxine 75 MCG tablet TAKE 1 TABLET BY MOUTH IN THE MORNING ON AN EMPTY STOMACH Take morning of surgery Multiple Vitamin (MULTI VITAMIN PO) Take 1 tablet by mouth daily every morning. Do not take 14 daysprior to surgery omeprazole [address] capsule Take 1 capsule by mouth 2 times daily. Take morning of surgery Polyethylene glycol 17 GM/SCOOP Powder powder 17 g as needed. Do not take morning of surgery simvastatin 40 MG tablet take 1 tablet by mouth at bedtime for cholesterol Take per usual night before surgery tiZANidine 4 MG tablet Take 1 tablet by mouth at bedtime. Take per usual night before surgery Warfarin 3 MG tablet Take 1 tablet by mouth every evening. 3 mg a day except Friday is 2 mg Do nottake 5 days prior to surgery (please start aspirin 81mg while off of warfarin, take aspirin 81mg upto and including day of surgery) Last dose of warfarin 06/09 for surgery on 06/15 DO NOT take Excedrin, ibuprofen, Advil, Voltaren (Diclofenac), Motrin, naproxen, or Aleve, Mobic (Meloxicam) for the 7 days before surgery unless your surgeon has instructed you otherwise. Acetaminophen (Tylenol) is ok to take up until the day of surgery for pain control OTHER MEDICATIONS: If you are on or have recently been started on any injectable medications for diabetes or weight loss (see list below), please call our office at [phone] for instructions on what to do with those medications. Your surgery is likely to get rescheduled or delayed if this medication is taken within a week of your surgery. exenatide (brand names Byetta and Bydureon) liraglutide (Victoza for diabetes, Saxenda for obesity) albiglutide (Tanzeum) dulaglutide (Trulicity) lixisenatide (Adlyxin) semaglutide (Ozempic and Rybelsus for diabetes, Wegovy for obesity) tirzepatide (dual GLP-1 and GIP agonist; Mounjaro for diabetes, Zepbound for obesity) VITAMINS & HERBALS Do NOT take herbal medications or vitamins such as, but not limited to, fish oil ([place]-3), garlic,glucosamine -chondroitin, gingko, ginseng, probiotics, or multivitamins) 2 weeks before surgery unless your surgeon instructed differently. If your Medical Doctor has prescribed vitamins or herbal supplements due to a medical condition such as malabsorption issues, only hold the day of surgery. DIET INSTRUCTIONS: NO food or drink after 11 pm the night before surgery except for enough water to take your medications. (No Candy, Mints and/or Gum). If your surgeon has given you special shakes to take prior to surgery, it is okay to take them and follow those instructions OTHER PREOPERATIVE INSTRUCTIONS: To lessen your chance of getting an infection after your surgery, you will need to wash your skin with a special soap called 4% Chlorhexidine Gluconate (CHG) before your surgery. Your nurse has givenyou CHG soap today and written instructions; Getting Your Skin Ready for Surgery. Please review the instructions carefully prior to your surgery. PREOPERATIVE INSTRUCTIONS: If additional testing has been ordered by [facility] outside of what can be done today after your visit, we will contact you with an appointment date, location and time for this testing. Please complete this testing as it would be vital to proceeding with your surgery. Any delays in testing could result in delays in your surgery. Please bring remote/s for any devices that you may have implanted like ICDs, pacemakers, nerve stimulators (deep brain, vagus, pudendal, hypoglossal, sacral or spinal) Do not wear any jewelry, watches, rings, hairpieces, makeup, dentures, glasses or contact lenses onday of surgery. Do not wear artificial nails or nail trinidadian the day of surgery. Do NOT bring your hearing aids or dentures or partials with you into surgery. They may get lost. Give them to someone to bring to you after surgery Shower the night before and the morning of surgery. If we have provided you with a special soap, follow those directions. AVOID using surgical soap around eyes, ears, nose, mouth, and genital areas Avoid any creams, ointments or deodorant on the morning of surgery Do not shave, or pluck hair from anywhere near the surgical site for 1 week prior to surgery. [place] your teeth and rinse your mouth the morning of surgery. Avoid Swallowing toothpaste. If you are a female, under the age of 60, you may be required to provide a urine specimen the morning of surgery. DO NOT DRINK ALCOHOL for at least 24 hours prior to surgery. AVOID USING NICOTINE or TOBACCO of any form around the time of surgery. This includes but not limited to: Smoking, Cigarettes, Vaping, Chewing/Rubbing Tobacco and Nicorette Gum. If you smoke, we recommend that you quit smoking at least 2 weeks prior to surgery as nicotine products can impair wound healing. Your anesthesia team recommends that you have no nicotine in your system for at least 24 hours (at a minimum) prior to anesthesia. Your surgery could get cancelled at your surgeon's discretion if you do not follow these instructions AVOID MARIJUANA USE for at least 72 hours prior to surgery. Arriving to surgery intoxicated or under the influence of recreational drugs may result in cancellation of procedure. If you have a cold or flu symptoms, recently hospitalized or new diagnosis, please contact your surgeon s office before your procedure. If you become ill, develop a fever, cough, develop any type of infection, or are admitted to the hospital for any reason within 14 days of your scheduled surgery, please notify our team ([facility] clinic)and your surgeon's office. You may need to have your surgery moved, as we would not want to put youat risk for complications, You MUST arrange for a responsible adult to drive you to your procedure, stay for the surgery, listen to discharge instructions, and drive you home after surgery, otherwise your surgery may be cancelled. [facility] Ginger Henning [phone] AVS/AE [facility] History and physical note* Ml Palma MD - 05/14/2024 11:00 AM EST Subjective: CC: Hiatal hernia HPI: Anusha Vidal is an 74 y.o. female with a PMH of factor V leiden (on coumadin), hiatal hernia repair in 2021 (in [place]) who presents with continued reflux symptoms and episodes of emesis that started this summer. Symptoms were first noted several years ago. Symptoms include: Heartburn:yes but watches what she eats Chest pain: yes sometimes after she eats Dysphagia: no Regurgitation: yes started this summer Cough: yes sometimes Hoarseness: yes Globus sensation: yes occasionally She increased her PPI dose to 2x a day, which helped. No significant weight changes These symptoms have minimal improvement with omeprazole. Presents today to discuss potential endoscopic or surgical treatment for GERD. Objective workup to date includes: UGI: moderate hiatal hernia. Passage of tablet EGD: yes 04/01/24 - medium PEH. Cruz placed. No esophagitis Mannometry: yes 04/16/24 - IEM, 70% ineffective swallows pH: 04/01/24 - DMS 64, AET 19% Past Medical History: Diagnosis Date Arrhythmia Arthritis Benign neoplasm of stomach Bicuspid aortic valve Blood dyscrasia Chronic back pain Colonic polyp COPD (chronic obstructive pulmonary disease) Coronary artery disease Diverticulosis AQUINO (dyspnea on exertion) Duodenitis without hemorrhage DVT (deep venous thrombosis) Essential hypertension Factor V Leiden GERD (gastroesophageal reflux disease) Hiatal hernia High cholesterol Hyperthyroidism IBS (irritable bowel syndrome) Mini stroke Post-menopausal bleeding RUQ pain Stroke Syncope No past surgical history on file. Current Outpatient Medications Medication Sig Dispense Refill Atenolol 25 MG tablet TAKE ONE-HALF TABLET BY MOUTH EVERY MORNING AND TAKE ONE TABLET EVERY EVENINGAT BEDTIME. Levothyroxine 75 MCG tablet TAKE 1 TABLET BY MOUTH IN THE MORNING ON AN EMPTY STOMACH Multiple Vitamin (MULTI VITAMIN PO) Take 1 tablet by mouth daily. omeprazole [address] capsule Take 1 capsule by mouth 2 times daily. Polyethylene glycol 17 GM/SCOOP Powder powder 17 g. simvastatin 40 MG tablet take 1 tablet by mouth at bedtime for cholesterol tiZANidine 4 MG tablet TAKE 1 TABLET BY MOUTH TWICE DAILY FOR 28 DAYS warfarin 2 MG tablet Take 1.5 tablets by mouth daily as needed. 3 mg a day except Friday is 2 mg No current facility-administered medications for this visit. Allergies Allergen Reactions Ivp Dye, Iodine Containing Hives Other Reaction(s): WELTS ON FACE Levofloxacin Other Reaction(s): ABDOMINAL PAIN, Other: See Comments Abd pain Naproxen Other Reaction(s): GI Upset, STOMACH PAIN Social History Socioeconomic History Marital status: Spouse name: Not on file Number of children: Not on file Years of education: Not on file Highest education level: Not on file Occupational History Not on file Tobacco Use Smoking status: Never Smokeless tobacco: Never Vaping Use Vaping status: Never Used Substance and Sexual Activity Alcohol use: Never Drug use: Never Sexual activity: Not on file Other Topics Concern Occupational Exposure No Hobby Hazards No Social History Narrative Not on file Social Determinants of Health Financial Resource Strain: Not on file Food Insecurity: Not on file Transportation Needs: Not on file Physical Activity: Not on file Stress: Not on file Social Connections: Not on file Intimate Partner Violence: Not on file Housing Stability: Not on file Family History Problem Relation Age of Onset Diabetes Mother Sudden Cardiac Father Bleeding or Clotting Problems Paternal Uncle Breast Cancer Maternal Aunt Review of Systems GENERAL: no fever, no chills HEENT: no hearing loss, no blurred vision CARDIO: no chest pain, no palpitations PULM: no shortness of breath, no wheezing GI: see HPI : no dysuria, no hematuria MSK: no back pain, no joint pain SKIN: no rash, no redness NEURO: no dizziness, no focal weakness PSYCH: no depressed mood, no anxiety Objective: BP 151/76 (BP Location: Right arm, BP Position: Sitting) Pulse 56 Ht 1.499 m (4' 11) Comment: pt stated Wt 58.2 kg (128 lb 6.4 oz) Comment: with shoes SpO2 100% BMI 25.93 kg/m Smoking Status Never Wt Readings from Last 3 Encounters: 05/14/24 58.2 kg (128 lb 6.4 oz) 04/16/24 56.7 kg (125 lb) 04/01/24 56.9 kg (125 lb 6.4 oz) Body mass index is 25.93 kg/m . General: alert, oriented x 3 HEENT: EOMI, no goiter CV: normal rate, no cyanosis Pulm: equal chest rise, breathing comfortably on room air Abdomen: soft, nontender, nondistended Skin: no rashes, no ulcers Psych: normal mood, normal affect Assessment: 74 y.o. female with Factor V leiden (on coumadin), prior hiatal hernia repair with toupet fundoplication in 2021 who presents with a recurrent hiatal hernia and reflux sx. Plan: Preoperative workup consistent with PEH and GERD. Will proceed with lap redo PEHR, redo Marcos fundoplication. Discussed risks and benefits of the procedure with the patient and she is agreeable. Consent signed in clinic. Ml Palma MD GI MIS/Bariatric Surgery Fellow Clinical Instructor, General Surgery [facility] Work Phone: [phone] 978-372012-13-2024 History and physical note* Ml Palma MD - 05/14/2024 11:00 AM EST Subjective: CC: Hiatal hernia HPI: Anusha Vidal is an 74 y.o. female with a PMH of factor V leiden (on coumadin), hiatal hernia repair in 2021 (in [place]) who presents with continued reflux symptoms and episodes of emesis that started this summer. Symptoms were first noted several years ago. Symptoms include: Heartburn:yes but watches what she eats Chest pain: yes sometimes after she eats Dysphagia: no Regurgitation: yes started this summer Cough: yes sometimes Hoarseness: yes Globus sensation: yes occasionally She increased her PPI dose to 2x a day, which helped. No significant weight changes These symptoms have minimal improvement with omeprazole. Presents today to discuss potential endoscopic or surgical treatment for GERD. Objective workup to date includes: UGI: moderate hiatal hernia. Passage of tablet EGD: yes 04/01/24 - medium PEH. Cruz placed. No esophagitis Mannometry: yes 04/16/24 - IEM, 70% ineffective swallows pH: 04/01/24 - DMS 64, AET 19% Past Medical History: Diagnosis Date Arrhythmia Arthritis Benign neoplasm of stomach Bicuspid aortic valve Blood dyscrasia Chronic back pain Colonic polyp COPD (chronic obstructive pulmonary disease) Coronary artery disease Diverticulosis AQUINO (dyspnea on exertion) Duodenitis without hemorrhage DVT (deep venous thrombosis) Essential hypertension Factor V Leiden GERD (gastroesophageal reflux disease) Hiatal hernia High cholesterol Hyperthyroidism IBS (irritable bowel syndrome) Mini stroke Post-menopausal bleeding RUQ pain Stroke Syncope No past surgical history on file. Current Outpatient Medications Medication Sig Dispense Refill Atenolol 25 MG tablet TAKE ONE-HALF TABLET BY MOUTH EVERY MORNING AND TAKE ONE TABLET EVERY EVENINGAT BEDTIME. Levothyroxine 75 MCG tablet TAKE 1 TABLET BY MOUTH IN THE MORNING ON AN EMPTY STOMACH Multiple Vitamin (MULTI VITAMIN PO) Take 1 tablet by mouth daily. omeprazole [address] capsule Take 1 capsule by mouth 2 times daily. Polyethylene glycol 17 GM/SCOOP Powder powder 17 g. simvastatin 40 MG tablet take 1 tablet by mouth at bedtime for cholesterol tiZANidine 4 MG tablet TAKE 1 TABLET BY MOUTH TWICE DAILY FOR 28 DAYS warfarin 2 MG tablet Take 1.5 tablets by mouth daily as needed. 3 mg a day except Friday is 2 mg No current facility-administered medications for this visit. Allergies Allergen Reactions Ivp Dye, Iodine Containing Hives Other Reaction(s): WELTS ON FACE Levofloxacin Other Reaction(s): ABDOMINAL PAIN, Other: See Comments Abd pain Naproxen Other Reaction(s): GI Upset, STOMACH PAIN Social History Socioeconomic History Marital status: Spouse name: Not on file Number of children: Not on file Years of education: Not on file Highest education level: Not on file Occupational History Not on file Tobacco Use Smoking status: Never Smokeless tobacco: Never Vaping Use Vaping status: Never Used Substance and Sexual Activity Alcohol use: Never Drug use: Never Sexual activity: Not on file Other Topics Concern Occupational Exposure No Hobby Hazards No Social History Narrative Not on file Social Determinants of Health Financial Resource Strain: Not on file Food Insecurity: Not on file Transportation Needs: Not on file Physical Activity: Not on file Stress: Not on file Social Connections: Not on file Intimate Partner Violence: Not on file Housing Stability: Not on file Family History Problem Relation Age of Onset Diabetes Mother Sudden Cardiac Father Bleeding or Clotting Problems Paternal Uncle Breast Cancer Maternal Aunt Review of Systems GENERAL: no fever, no chills HEENT: no hearing loss, no blurred vision CARDIO: no chest pain, no palpitations PULM: no shortness of breath, no wheezing GI: see HPI : no dysuria, no hematuria MSK: no back pain, no joint pain SKIN: no rash, no redness NEURO: no dizziness, no focal weakness PSYCH: no depressed mood, no anxiety Objective: BP 151/76 (BP Location: Right arm, BP Position: Sitting) Pulse 56 Ht 1.499 m (4' 11) Comment: pt stated Wt 58.2 kg (128 lb 6.4 oz) Comment: with shoes SpO2 100% BMI 25.93 kg/m Smoking Status Never Wt Readings from Last 3 Encounters: 05/14/24 58.2 kg (128 lb 6.4 oz) 04/16/24 56.7 kg (125 lb) 04/01/24 56.9 kg (125 lb 6.4 oz) Body mass index is 25.93 kg/m . General: alert, oriented x 3 HEENT: EOMI, no goiter CV: normal rate, no cyanosis Pulm: equal chest rise, breathing comfortably on room air Abdomen: soft, nontender, nondistended Skin: no rashes, no ulcers Psych: normal mood, normal affect Assessment: 74 y.o. female with Factor V leiden (on coumadin), prior hiatal hernia repair with toupet fundoplication in 2021 who presents with a recurrent hiatal hernia and reflux sx. Plan: Preoperative workup consistent with PEH and GERD. Will proceed with lap redo PEHR, redo Marcos fundoplication. Discussed risks and benefits of the procedure with the patient and she is agreeable. Consent signed in clinic. Ml Palma MD GI MIS/Bariatric Surgery Fellow Clinical Instructor, General Surgery documented in this [facility]12-13-2024 History of Present illness Narrative* Wesley Bui MD - 05/14/2024 11:00 AM EST Subjective: CC: Recurrent paraesophageal hernia HPI: Anusha Vidal is an 74 y.o. female with a PMH of factor V leiden (on coumadin), hiatal hernia repair in 2021 (in [place]) who presents with continued reflux symptoms and episodes of emesis that started this summer. Symptoms were first noted several years ago. Symptoms include: Heartburn:yes but watches what she eats Chest pain: yes sometimes after she eats Dysphagia: no Regurgitation: yes started this summer Cough: yes sometimes Hoarseness: yes Globus sensation: yes occasionally She increased her PPI dose to 2x a day, which helped. No significant weight changes These symptoms have minimal improvement with omeprazole. Presents today to discuss potential endoscopic or surgical treatment for GERD. Objective workup to date includes: UGI:no EGD: yes Medium sized PEH. No esophagitis Mannometry: yes 10% failed. Distal esoph P 71.8 mmHg pH: yes EAET 19.3%. DeMeester score 64.4 Past Medical History: Diagnosis Date Arrhythmia Arthritis Benign neoplasm of stomach Bicuspid aortic valve Blood dyscrasia Chronic back pain Colonic polyp COPD (chronic obstructive pulmonary disease) Coronary artery disease Diverticulosis AQUINO (dyspnea on exertion) Duodenitis without hemorrhage DVT (deep venous thrombosis) Essential hypertension Factor V Leiden GERD (gastroesophageal reflux disease) Hiatal hernia High cholesterol Hyperthyroidism IBS (irritable bowel syndrome) Mini stroke Post-menopausal bleeding RUQ pain Stroke Syncope No past surgical history on file. Current Outpatient Medications Medication Sig Dispense Refill Atenolol 25 MG tablet TAKE ONE-HALF TABLET BY MOUTH EVERY MORNING AND TAKE ONE TABLET EVERY EVENINGAT BEDTIME. Levothyroxine 75 MCG tablet TAKE 1 TABLET BY MOUTH IN THE MORNING ON AN EMPTY STOMACH Multiple Vitamin (MULTI VITAMIN PO) Take 1 tablet by mouth daily every morning. omeprazole [address] capsule Take 1 capsule by mouth 2 times daily. Polyethylene glycol 17 GM/SCOOP Powder powder 17 g as needed. simvastatin 40 MG tablet take 1 tablet by mouth at bedtime for cholesterol tiZANidine 4 MG tablet Take 1 tablet by mouth at bedtime. Warfarin 3 MG tablet Take 1 tablet by mouth every evening. 3 mg a day except Friday is 2 mg Calcium Citrate-Vitamin D (CALCIUM + D PO) Take by mouth daily every morning. No current facility-administered medications for this visit. Allergies Allergen Reactions Ivp Dye, Iodine Containing Hives Other Reaction(s): WELTS ON FACE Levofloxacin Other Reaction(s): ABDOMINAL PAIN, Other: See Comments Abd pain Naproxen Other Reaction(s): GI Upset, STOMACH PAIN Social History Socioeconomic History Marital status: Spouse name: Not on file Number of children: Not on file Years of education: Not on file Highest education level: Not on file Occupational History Not on file Tobacco Use Smoking status: Never Smokeless tobacco: Never Vaping Use Vaping status: Never Used Substance and Sexual Activity Alcohol use: Never Drug use: Never Sexual activity: Not on file Other Topics Concern Occupational Exposure No Hobby Hazards No Social History Narrative Not on file Social Determinants of Health Financial Resource Strain: Not on file Food Insecurity: Not on file Transportation Needs: Not on file Physical Activity: Not on file Stress: Not on file Social Connections: Not on file Intimate Partner Violence: Not on file Housing Stability: Not on file Family History Problem Relation Age of Onset Diabetes Mother Sudden Cardiac Father Bleeding or Clotting Problems Paternal Uncle Breast Cancer Maternal Aunt Review of Systems Pertinent items are noted in HPI, all other systems were queried and are negative. Objective: BP 151/76 (BP Location: Right arm, BP Position: Sitting) Pulse 56 Ht 1.499 m (4' 11) Comment: pt stated Wt 58.2 kg (128 lb 6.4 oz) Comment: with shoes SpO2 100% BMI 25.93 kg/m Smoking Status Never Wt Readings from Last 3 Encounters: 05/21/24 59.2 kg (130 lb 8 oz) 05/14/24 58.2 kg (128 lb 6.4 oz) 04/16/24 56.7 kg (125 lb) Body mass index is 25.93 kg/m . General: alert, cooperative, no distress, appears stated age Neck: supple and no adenopathy, Pul: Normal chest wall and respirations. Clear to auscultation. Heart: regular rate and rhythm, S1, S2 normal, no murmur, click, rub or gallop Abdomen: Soft, Nontender, No masses, and No guarding Extrem: Normal Skin: Skin is warm, dry and intact with no evidence of bruising, lesions or rash Assessment: 74 y.o. female with GERD and recurrent paraesophageal hiatal hernia. Plan: Given the objective workup, we will plan to proceed with laparoscopic redo Paraesophageal hernia repair and Marcos fundoplication. A full discussion of the risks and benefits of the procedure was held, all of the patients questioned were answered, and informed consent was obtained. Today, I spent 25 minutes with the patient, the majority of which was spent in [id number] discussion and counseling regarding the above. Wesley Bui MD fact checker [facility] Instructions* Patient Instructions* Shay Rand - 05/14/2024 11:00 AM EST BEFORE SURGERY: [facility] (OPAC) Date: 05/21/24 Arrival Time: 9:30am Located at: [facility] [address] - 1st floor of the pavilion, [address] [place] [address] PLEASE REGISTER ON THE 1ST FLOOR PAVILION Please allow 2 hours for your OPAC appointment. Your physician has chosen to send you to the OPAC to have your preoperative testing completed. The OPAC is a single site that will help coordinate your preoperative needs and provide you with the information and education you need prior to your surgery. This could include tests and assessments suchas: Medical history and physical examination EKG Blood testing Medication documentation Chest x-rays Referrals for other diagnostic testing Preparing for Your OPAC Appointment Please bring the following items to your appointment: A list of medications including the name, dosage and how often you take each medication (you may also bring the bottles, with labels intact) Your insurance card and identification including your social security number or medical record number. Your insurance co-payment if required by your insurance Previous tests and radiology reports (if you have them) Names, addresses and phone numbers of other doctors who are treating you or referred you Personal health information including dates when events occurred and any allergies you may have to medications Family health history information listing significant conditions that affected family members directly related to you A list of questions or concerns you may want to discuss with the doctor or nurse [facility] doctors and staff are educators who teach others about health and medical procedures. We are happy to talk with you so that you can fully understand your condition and can be an active participant in your journey to better health. We look forward to serving you. Please don t hesitate to ask any questions. DAY OF SURGERY: IMPORTANT: If you develop cold/flu like symptoms prior to surgery, please contact our office at [phone] Please note that this schedule is subject to change, you may be contacted up to 24 hours in advanceof surgery for any necessary adjustments. This may include an arrival time as early as 5:00 AM. Please plan accordingly. [] SURGERY SCHEDULE YOUR SURGERY DATE: 06/15/24 ARRIVAL TIME: You will receive an automated call 24-48 hours prior to surgery please call if you do [place] [address] [place] in [address], Patient Admissions (1st room on the right) Office #: [phone] Fax #: [phone] CURRENT COVID VISITOR POLICY: These visitor policy changes for hospital inpatients only are effective 07/26: Hospital inpatients, including COVID-19 positive and suspected patients, can have two named visitors of the patient s choice per day as identified in the patient s electronic medical record. Visitors are required to wear a wristband or visitor badge with the date and visitor s name. Visitation is permitted between 8 a.m. to 7 p.m., seven days a week. Visitors must have no COVID-19 symptoms or recently known exposures. Visitors must have no COVID-19 symptoms or recent known exposures and adhere to these protocols: Show a government-issued photo ID upon arrival. Wear a hospital-provided mask over nose AND mouth at all times in all health care settings, including the patient's room, regardless of vaccination status. Practice good hand hygiene. Existing visitor exceptions remain in place for: Emergency departments Surgery/Procedures End of life/Goals of care Outpatient obstetrics Maternity NOTHING TO EAT OR DRINK AFTER MIDNIGHT. PLEASE HAVE YOUR TRANSPORTATION AVAILABLE AT ANY TIME. Arrange to have an adult to drive you to the hospital and be there to take you home after the surgery. If you are taking a cab, bus or medical transportation service home, an adult, other than the fuel oil truck driver, needs to ride with you for your safety. This person will also be responsible for communicatingpost-operative instructions to you. If you would like to sign up for text messages for [facility] appointment reminders text [facility] TO [phone].You will receive a response within a few minutes after sending to verify. Please call our office at if you have any questions, problems or if you develop any illnesses such as a cold, sore throat, cough, or fever prior to your surgery. If you are a patient who will require disability paperwork to be completed, please bring your paperwork with you to an office visit. Please allow 7-10 business days for these to be completed. The clinic staff will be completing these forms and you can call the office if you have questions. Medicines to prevent blood clots If you are taking aspirin to prevent blood clots because you have a stent, or you have had a heart attack or stroke, continue to take your aspirin up to, and even on the day of a surgery . If you have a stent, read the Protect Your Stent handout to learn more. The medicines listed below thin the blood to prevent blood clots. Taking them decreases the chance of heart attack, stroke and blood clots. However, taking them before a surgery can also increase thechance of bleeding. Apixiban (Eliquis) Clopidogrel (Plavix) Dabigatran (Pradaxa) Dalteparin (Fragmin) Enoxaparin (Lovenox) Fondaparinux (Arixtra) Prasugrel (Effient) Rivaroxaban (Xarelto) Ticagrelor (Brilinta) Ticlopidine (Ticlid) Warfarin (Coumadin) As soon as you know about a planned surgery: Tell your surgeon about the medicine you take to prevent blood clots. Also, talk with the doctor who prescribes your medicine to prevent clots. He or she can tell you how to adjust your medicine around the time of your surgery. If your surgery date is changed and you stopped taking your medicine to prevent clots, call your doctor. You may need to restart the medicine while you are waiting for your surgery to be rescheduled. What to do about your medicines before surgery Please call your doctor s office if you have any questions about your regular medicines. Some medicines need to be stopped for a time before your surgery to prevent problems. Use this listas a guide. If you are not sure which medicines you should stop before your surgery, ask your doctor to be sure. Follow the directions of your doctor. All herbal medicines should be stopped 14 days before surgery. Monamine oxidase inhibitors should be stopped 7 to 14 days before surgery. These include drugs such as Nardil (Phenelzine Sulfate), Parnate (Tranylcypromine Sulfate), Eldepryl (Seleqiline Hydrochloride). Glucophage (Metformin) should be stopped 48 hours before surgery. Do not take these kinds of medicines the morning of surgery: Metformin should be stopped 48 hours prior to surgery Insulin or oral diabetes medicines - Please check your blood sugar the morning of surgery if you have diabetes. Diuretics (water pills) YOBANI Inhibitors for blood pressure Digoxin unless used for irregular heartbeat, such as atrial fibrillation Take these medicines the morning of surgery with a sip of water: All heart medicines All blood pressure medicine, except diuretics (water pills) and YOBANI inhibitors All breathing medicines, including inhalers All anti-seizure medicine All heartburn or gastric reflux medicine, except antacids such as Maalox or Mylanta Pain medicine, prescribed to you by a doctor, if in severe pain Steroid medicine Antidepressant medicines, except monamine oxidase inhibitors such as Nardil (Phenelzine Sulfate), Parnate (Tranylcypromine Sulfate), and Eldepryl (Seleqiline Hydrochloride) Preparing for Surgery Do not eat or drink anything (including water, coffee, candy, gum or mints) after midnight before your surgery. Only take the medicine your surgeon or anesthesiologist told you to take by mouth the morning of your surgery. You may brush your teeth, but do not swallow the water. It is important to have an empty stomach before your surgery. Do not smoke/use any sort of tobacco after 6 p.m. the night before your surgery. Wear casual, loose-fitting clothing to the hospital. Do not wear makeup, nail trinidadian or hair pins to the hospital. Please remove any body piercing's. Please leave jewelry and other valuables at home. Bring a storage case for contact lenses or glasses. They cannot be worn during surgery. If you take medicines on a routine basis, please bring an updated list of medications with you. Limit the number of people bringing you to the hospital. Adult patients should be escorted by one adult. Arrive at the hospital two hours before your surgery, or as directed by your surgeon s office, to allow time to get you ready for surgery. If you have a living will or durable power of tax attorney, please bring a copy of the documents with you. IF YOU USE CPAP BRING YOUR MACHINE WITH YOU TO THE HOSPITAL ALONG WITH THE PRESCRIPTION FOR CPAP PRESSURE LEVELS Getting Your Skin Ready for Surgery You are scheduled to have a surgery that involves cutting through the skin. Because germs live on everyone's skin, there is a greater chance of getting an infection. To lessen your chance of getting an infection, you need to take special care of your skin before the surgery. Follow These Instructions: You may be given or you will need to buy a special soap called 4% chlorhexidine gluconate or CHG. Common brand names for this soap are Hex-A-Clens or Hibiclens. You will need 2 of the 4-ounce bottlesor Hibiclens Foam wash. There may be a store brand that is less costly. Ask your pharmacist where to find it in the drug store. It is often with first aid supplies. You may want to call ahead to check that they have the CHG soap in the store. Do not shave near the site where your doctor will be making the cut for your surgery for at least 48 hours before surgery. You need to shower with the CHG soap two times before your surgery within 48 hours Cleaning Your Skin with CHG * 1. Start by washing your hair as usual with your normal shampoo and wash your body with regular soap. Rinse your hair and body very well to remove any shampoo or soap that might be on your skin. 2. Wet a clean washcloth and turn off the shower. 3. Put the CHG soap on the wet clean washcloth. 4. Apply the CHG soap to your whole body from the neck down only. Do not use CHG soap on your face and be careful not to get the CHG in your eyes or ears. CHG soap does not lather well. Put more CHG on the cloth as you cover more of your body. You should use about 4 ounces or 1/2 cup of CHG with each shower. Note: If you are using the Hibiclens (chlorhexidine) Foam wash, then apply 3 pumps of wash directly onto your skin and lather your body from the neck down. 5. Wash your body gently for 5 minutes, paying special attention to the part on your body where thesurgery will be done. Be sure to wash the back of your neck, under your arms, your belly button, private parts and your legs down to your toes. Do not scrub too hard. 6. Turn the shower back on and rinse well to get the CHG soap off your body. 7. Pat yourself dry with a clean, dry towel. 8. Do not use any lotions, moisturizer, make-up or other products on the skin near the part of your body that will be cut for surgery. 9. Put on clean clothes. *Special Notes If you do not have a shower or you are not able to get into the shower, do a sponge bath each time.Do not wash your hair unless you are to have a cut into your scalp. First, bathe with a washcloth and regular soap. Rinse with clean water. Then get a clean washcloth and use the CHG to wash your body. Rinse with another clean washcloth and plain water. Dry with a clean towel. If you have any questions about cleaning your skin, call your doctor s office. Driving Directions to [facility] From the North ([place], [place] and [place]) Take [address] major [address] to the [place] exit Turn left onto [address] ([place] turns into [place]) Take [place] to [address] Turn left onto [address] Turn left onto [address] Turn right onto [address] See Parking Directions - Continued From the South ([place] and [place]) Take any major highway to [address] to the [address] exit Turn right onto [address] Turn right onto [address] Turn left to stay on [place] [place] [address] Turn left onto [address] Turn left onto [address] Turn right onto [address] See Parking Directions - Continued From the East ([place], [place] and [place]) Take any major highway to [address] to the [address] exit Turn right onto [address] Turn right onto [address] Turn left to stay on [place] [place] Turn left onto [address] Turn left onto [address] Turn right onto [address] See Parking Directions - Continued From the West ([facility] and [place]) Take any major highway to [address] to the the [address] exit Turn right onto [address] Turn right onto [place] [place] [address] Turn left to stay on [place] [place] Turn left onto [address] Turn left onto [address] Turn right onto [address] See Parking Directions - Continued Parking Directions - Continued Patient Special Technical Operations Officer Continued: Take [address] past the intersection of [address] and [address]. Continue straight to the front of [facility] ([facility]). Pull into Patient Special Technical Operations Officer on your right. [employer] [facility] [address] [place] [address] Continued: From [address], turn left onto [facility]. The [employer] [facility] is located on the left and is connected to the medical center by a walkway bridge on the second fl oor. [address] [place] [address] Continued: Take [address] to [address]. Turn right onto [address]. Turn left onto [address]. Turn left onto Avenue. The [address] is located on the right and is connected to the medical center by a walkway bridge on the third floor. NOTE: Discounted Garage Parking is available. Please bring your garage ticket to any information desk in the Medical Center to receive your discount ticket. Financial Obligation: Your insurance many require an authorization prior to the procedure. Our pre- cert office will be contacting your insurance to see if authorization is required. If you have questions about how much your insurance will pay, please contact your insurance directly. Please be prepared to pay your co-pay, co- insurance, or deductible on the day of your surgery. We request patients with insurance that is less than 100% coverage to pay a deposit prior to the procedure being performed. A operations representative from the [facility] will contact you to pre-register you for your services. If you have not received a call by two days prior to your procedure date, please call our Pre-Registration Department at [phone] or [phone]. By calling us in advance, your wait time will be reduced. Our trained representatives can assist you in discussing both your physician and hospital obligations. Are you a [employer] user? If yes, you can log on and complete a pre-registration questionnaire. Pantograph Machine Operator: You are not eligible for Financial Assistance if you are entering the [facility] solely to seek medical treatment. We want to make sure all patients have access to quality healthcare services at [facility], and we are committed to working with you and your family to obtain appropriate financial assistance. We are here to help. Please let us know if you do not have health insurance or cannot pay your bill in full. We encourage you to contact our Office of Financial Counseling, where staff members are trained to assist you in determining whether you might qualify for an assistance program. Our financial counselors can helpyou complete applications for government-sponsored programs, describe other financial assistance programs that can help offset costs, or structure workable payment plans for your required medical treatment if you meet certain financial criteria. They can also assist you in explaining your options related to the Affordable Care Act. These options include helping you apply for: [place] Medicaid (if your income meets guidelines) The Affordable Care Act Insurance Exchange Program. Other federal/state assistance programs Or establish a payment plan Other Assistance: [facility] offers an additional sliding scale financial assistance based on Federal Poverty Guidelines. To help determine the appropriate assistance programs for you, you will need to provide details about your job, income, resources, insurance coverage, family size and other information. We realize some of these details may be of a sensitive nature, but it is necessary that you provide them to enable us to help you. We are committed to respecting you and your privacy during this process. If you are uninsured but do not qualify for Medicaid or other assistance programs, our Financial Counselors will be happy to discuss the Affordable Care Act Insurance Exchange programs. If you are interested in learning more about these programs, please contact the Financial Counseling Department at [phone] between 8 a.m. and 5 p.m. week. A financial counselor can assist you with the application process. You will be screened for all potential programs. If you appear to beeligible for Medicaid, you will be assisted through the application process. As a Medicaid recipient, your physician fees and facility fees could be covered. Services not covered by [facility] financial assistance program: Physician Fees Transportation fees Dental Services Medically unnecessary services Prescriptions Durable Medical Equipment We Are 100% Tobacco-Free At [facility], we care about the health of our patients, visitors andstaff. That s why all of our locations - inside and outside - are 100% tobacco-free. We understand that nicotine is addictive, and we regret the inconvenience to tobacco users. However, as an academic [facility] with leading cancer and heart hospitals, creating a healthy environment for everyone who attends, works and visits our Medical Center is important. [facility] History of Present illness Narrative* Rica Palacios RN - 04/16/2024 7:30 AM EST Anusha Vidal arrived at the NA motility lab today for an esophageal manometry with impedance. NPOstatus verified. Last dose of warfarin was 04/13. Medications, allergies, and medical/surgical history were verified with patient are are consistent with the EMR. The procedure, as well as risks of nosebleed, sore throat, tracheal intubation, perforation or inability to place catheter were explained and all questions were answered. A verbal consent was obtained followed by a verbal time out. A topical analgesic of 2% Lidocaine gel was used to numb the right naris followed by trans-nasal insertion of a High Resolution Manometry Catheter. Catheter # [id number]. Pressure bands of both the UES and LES were observed on the color contour. Patient was instructed to take a deep breath to verify placementof catheter; diaphragmatic pinch noted on inspiration. Catheter was stabilized by taping to the nares and patient was assisted into supine position. Patient was encouraged to relax while acclimating to the catheter for a 5 minutes period. A 30 second baseline pressure was then obtained to identify the UES and LES followed by a series of wet swallows, while supine, using 5 ml of room temperature normal saline. A second 30 second baseline pressure reading was obtained, followed by a deep breath. Patient was then placed in an upright position and performed a series of wet swallows with 5mL of saline. Patient then performed 3 episodes of rapid swallowing with a 50/50 mixture of saline and water, attempting to get 6 swallows within 10 seconds. At the conclusion of the procedure the catheter was easily removed intact. Patient was able to tolerate the procedure and all portions of it were completed as described above. Dr. Bui was available in the suite throughout the procedure for any questions or concerns. Total time spent with patient was approximately 60 minutes. Of this, about 45 minutes were spent inthe procedure. The remaining time was spent in intake, history, and education, as well as time for patient to complete the procedural questionnaire. Additional time was spent in editing and documentation. documented in this [facility]11-15-2024 Procedure note* Vandana Reese MD, PhD - 04/16/2024 7:30 AM ESTAssociated Order(s): MANOMETRY ESOPHAGEAL Pre-Procedure Diagnose(s): Gastroesophageal reflux disease with esophagitis without hemorrhage MANOMETRY ESOPHAGEAL Date/Time: 10/14/2024 8:36 AM This is a high-resolution esophageal manometry done on 04/16/2024 Performed by: Vandana Reese MD, PhD Authorized by: Wesley Bui MD INDICATIONS: Indications: GERD 10 swallows in the supine position were evaluated. 5 swallows in the upright position were evaluated. Findings: LOWER ESOPHAGEAL SPHINCTER (LES): The pressure inversion point and midpoint of the LES were . Manometric evidence of hiatal hernia. Manometric evidence of a 2.4 cm hiatal hernia. Median LES IRP: 5.6 mmHg Median LES IRP is normal in supine swallows and normal in upright swallows.. Baseline LES pressure is normal. Proximal border of LES: 32 cm Distal border of LES: 34 cm Midpoint of LES: 33 cm Pressure inversion point: 37 cm Normal LES relaxation during multiple rapid swallow. ESOPHAGEAL BODY (peristaltic contractions): Supine Swallows: Intact: 30 % Weak: 40 % Failed: 30 % Hypercontractile: 0 % Spastic: 0 % Fragmented: 0 % Panpressurization: 0 % Upright Swallows: Intact: 100 % Weak: 0 % Failed: 0 % Hypercontractile: 0 % Spastic: 0 % Fragmented: 0 % Panpressurization: 0 % Mean DCI: 876 mmHg-cm-s Distal latency: 6.4 seconds Multiple rapid swallow sequence: Normal vagal inhibition and Absent post swallow contraction UPPER ESOPHAGEAL SPHINCTER (UES): Inadequate UES relaxation during swallowing. Mean UES pressure: 9.9 mmHg Hypotensive UES. IMPEDANCE ANALYSIS: Baseline impedance low, limiting analysis. 50 % supine swallows showed incomplete bolus clearance. 0 % upright swallows showed incomplete bolus clearance. There was no evidence of gastroesophageal reflux. IMPRESSION: Normal esophageal manometry Hiatal hernia present RECOMMENDATIONS: Return to referring provider for next steps in management [facility] Procedure note* Vandana Reese MD, PhD - 04/16/2024 7:30 AM ESTAssociated Order(s): MANOMETRY ESOPHAGEAL Pre-Procedure Diagnose(s): Gastroesophageal reflux disease with esophagitis without hemorrhage MANOMETRY ESOPHAGEAL Date/Time: 10/14/2024 8:36 AM This is a high-resolution esophageal manometry done on 04/16/2024 Performed by: Vandana Reese MD, PhD Authorized by: Wesley Bui MD INDICATIONS: Indications: GERD 10 swallows in the supine position were evaluated. 5 swallows in the upright position were evaluated. Findings: LOWER ESOPHAGEAL SPHINCTER (LES): The pressure inversion point and midpoint of the LES were . Manometric evidence of hiatal hernia. Manometric evidence of a 2.4 cm hiatal hernia. Median LES IRP: 5.6 mmHg Median LES IRP is normal in supine swallows and normal in upright swallows.. Baseline LES pressure is normal. Proximal border of LES: 32 cm Distal border of LES: 34 cm Midpoint of LES: 33 cm Pressure inversion point: 37 cm Normal LES relaxation during multiple rapid swallow. ESOPHAGEAL BODY (peristaltic contractions): Supine Swallows: Intact: 30 % Weak: 40 % Failed: 30 % Hypercontractile: 0 % Spastic: 0 % Fragmented: 0 % Panpressurization: 0 % Upright Swallows: Intact: 100 % Weak: 0 % Failed: 0 % Hypercontractile: 0 % Spastic: 0 % Fragmented: 0 % Panpressurization: 0 % Mean DCI: 876 mmHg-cm-s Distal latency: 6.4 seconds Multiple rapid swallow sequence: Normal vagal inhibition and Absent post swallow contraction UPPER ESOPHAGEAL SPHINCTER (UES): Inadequate UES relaxation during swallowing. Mean UES pressure: 9.9 mmHg Hypotensive UES. IMPEDANCE ANALYSIS: Baseline impedance low, limiting analysis. 50 % supine swallows showed incomplete bolus clearance. 0 % upright swallows showed incomplete bolus clearance. There was no evidence of gastroesophageal reflux. IMPRESSION: Normal esophageal manometry Hiatal hernia present RECOMMENDATIONS: Return to referring provider for next steps in management [facility] in [facility] Nurse Note* Jolanta Andrea RN - 04/01/2024 1:15 PM EDT A copy of the written instructions regarding post-procedure diet, medications, activities, and phone number to be called in case of emergency provided to patient and/or responsible constitution party. Informationreviewed and questions answered prior to discharge. Cruz instructions reviewed. Pt and verbalized understanding to written and verbal instructions. documented in this [facility]10-31-[facility] Nurse Surgical operation note* Jolanta Andrea RN - 04/01/2024 1:15 PM EDT A copy of the written instructions regarding post-procedure diet, medications, activities, and phone number to be called in case of emergency provided to patient and/or responsible constitution party. Informationreviewed and questions answered prior to discharge. Cruz instructions reviewed. Pt and verbalized understanding to written and verbal instructions. [facility] History and physical note* Maribel Lewis MD - 04/01/2024 12:30 PM EDT Minimally Invasive Surgery H&P Note HPI: 74 y.o. female with GERD who presents for EGD and Cruz probe placement as part of GERD workup. She has some chest burning from her reflux today. She has been off her medications for a week. O: Resp 14 Ht 1.499 m (4' 11) Wt 56.9 kg (125 lb 6.4 oz) BMI 25.33 kg/m No intake/output data recorded. Physical Exam: Gen: lying in bed, NAD Lungs: no increased work of breathing Cardiac: regular rate and rhythm Abdomen: soft, non-distended, nontender Labs: N/A A/P: Anusha Vidal is a 74 y.o. female with PMH GERD refractory to medical therapy. She presents forEGD and Cruz probe placement as part of GERD workup. - Consent has been signed - Proceed to Endoscopy Maribel Lewis MD 04/01/2024 11:57 AM [facility] Work Phone: [phone] History and physical note* Maribel Lewis MD - 04/01/2024 12:30 PM EDT Minimally Invasive Surgery H&P Note HPI: 74 y.o. female with GERD who presents for EGD and Cruz probe placement as part of GERD workup. She has some chest burning from her reflux today. She has been off her medications for a week. O: Resp 14 Ht 1.499 m (4' 11) Wt 56.9 kg (125 lb 6.4 oz) BMI 25.33 kg/m No intake/output data recorded. Physical Exam: Gen: lying in bed, NAD Lungs: no increased work of breathing Cardiac: regular rate and rhythm Abdomen: soft, non-distended, nontender Labs: N/A A/P: Anusha Vidal is a 74 y.o. female with PMH GERD refractory to medical therapy. She presents forEGD and Cruz probe placement as part of GERD workup. - Consent has been signed - Proceed to Endoscopy Maribel Lewis MD 04/01/2024 11:57 AM documented in this encounterOS[facility]10-[facility]24 Miscellaneous Notes* Nursing Notes - Violette Morton RN - 04/01/2024 12:30 PM EDT CRUZ teaching completed. Recorder #[id number]. * Nursing Notes - Hal Mcpherson RN - 04/01/2024 12:12 PM EDT Sedation, vital signs, airway and monitoring per anesthesia. documented in this [facility]Tr[facility]10-31-2024 Nurse Note* Nursing Notes - Violette Morton RN - 04/01/2024 12:30 PM EDT CRUZ teaching completed. Recorder #[id number]. [facility] Nurse Note* Nursing Notes - Hal Mcpherson RN - 04/01/2024 12:12 PM EDT Sedation, vital signs, airway and monitoring per anesthesia. [facility] History of Present illness Narrative* Farooq Casiano MD - 03/26/2024 12:00 PM EDT Subjective: CC: Hiatal hernia HPI: Anusha Vidal is an 74 y.o. female with a PMH of factor V leiden (on coumadin), hiatal hernia repair in 2021 (in [place]) who presents with continued reflux symptoms and episodes of emesis that started this summer. Symptoms were first noted several years ago. Symptoms include: Heartburn:yes but watches what she eats Chest pain: yes sometimes after she eats Dysphagia: no Regurgitation: yes started this summer Cough: yes sometimes Hoarseness: yes Globus sensation: yes occasionally She increased her PPI dose to 2x a day, which helped. No significant weight changes These symptoms have minimal improvement with omeprazole. Presents today to discuss potential endoscopic or surgical treatment for GERD. Objective workup to date includes: UGI:no EGD: yes (02/10) Large hiatal hernia with fundoplication herniated. Severe esophagitis. Attempted cruz placement however sloughed off and would not take Mannometry: yes done in 08/02/21 pH: no Unable to place pH probe on 02/10 Past Medical History: Diagnosis Date Arrhythmia Benign neoplasm of stomach Bicuspid aortic valve Blood dyscrasia Chronic back pain Colonic polyp COPD (chronic obstructive pulmonary disease) Coronary artery disease Diverticulosis AQUINO (dyspnea on exertion) Duodenitis without hemorrhage DVT (deep venous thrombosis) Essential hypertension Factor V Leiden GERD (gastroesophageal reflux disease) Hiatal hernia High cholesterol Hyperthyroidism IBS (irritable bowel syndrome) Mini stroke Post-menopausal bleeding RUQ pain Stroke Syncope No past surgical history on file. Current Outpatient Medications Medication Sig Dispense Refill Atenolol 25 MG tablet TAKE ONE-HALF TABLET BY MOUTH EVERY MORNING AND TAKE ONE TABLET EVERY EVENINGAT BEDTIME. Levothyroxine 75 MCG tablet TAKE 1 TABLET BY MOUTH IN THE MORNING ON AN EMPTY STOMACH omeprazole [address] capsule Take 1 capsule by mouth 2 times daily. Polyethylene glycol 17 GM/SCOOP Powder powder 17 g. simvastatin 40 MG tablet take 1 tablet by mouth at bedtime for cholesterol tiZANidine 4 MG tablet TAKE 1 TABLET BY MOUTH TWICE DAILY FOR 28 DAYS warfarin 2 MG tablet Take 1 tablet by mouth daily as needed. No current facility-administered medications for this visit. Allergies Allergen Reactions Ivp Dye, Iodine Containing Hives Other Reaction(s): WELTS ON FACE Levofloxacin Other Reaction(s): ABDOMINAL PAIN, Other: See Comments Abd pain Naproxen Other Reaction(s): GI Upset, STOMACH PAIN Social History Socioeconomic History Marital status: Spouse name: Not on file Number of children: Not on file Years of education: Not on file Highest education level: Not on file Occupational History Not on file Tobacco Use Smoking status: Not on file Smokeless tobacco: Not on file Substance and Sexual Activity Alcohol use: Not on file Drug use: Not on file Sexual activity: Not on file Other Topics Concern Not on file Social History Narrative Not on file Social Determinants of Health Financial Resource Strain: Not on file Food Insecurity: Not on file Transportation Needs: Not on file Physical Activity: Not on file Stress: Not on file Social Connections: Not on file Intimate Partner Violence: Not on file Housing Stability: Not on file No family history on file. Review of Systems Pertinent items are noted in HPI, all other systems were queried and are negative. Objective: BP (!) 166/91 (BP Location: Left arm, BP Position: Sitting) Pulse 62 Temp 98 F (36.7 C) (Infrared) Ht 1.499 m (4' 11) Comment: pt stated Wt 58 kg (127 lb 14.4 oz) Comment: with shoes SpO2 99% BMI 25.83 kg/m Wt Readings from Last 3 Encounters: 03/26/24 58 kg (127 lb 14.4 oz) Body mass index is 25.83 kg/m . General: alert, cooperative, no distress, appears stated age Neck: normal Pul: Normal work of breathing Heart: Regular rate Abdomen: Soft and Nontender Extrem: Normal Skin: Skin is warm, dry and intact with no evidence of bruising, lesions or rash Assessment: 74 y.o. female with Factor V leiden (on coumadin), prior hiatal hernia repair with toupet fundoplication in 2021 who presents with a recurrent hiatal hernia and reflux sx. Plan: Recommend repeating EGD with cruz, and manometry ATTENDING ADDENDUM: I saw and independently examined the patient today. I agree with the history of present illness, past medical history, family history, social history, medication list, and allergies as listed. Independent review of labs and radiographs, as well as review medical records, confirm the findings noted a anjali, I agree with the assessment and plan as noted above. I have edited the note after review. Recurrent GERD symptoms following previous Toupet fundoplication. We will plan for EGD, pH study and manometry for objective reflux evaluation. Following this she will follow up to discuss the results and possible redo LARS. Today, I spent 30 minutes with the patient, the majority of which was spent in [id number] discussion and counseling regarding the above. Wesley Bui MD fact checker documented in this encounterTr[facility]10-[facility]-2024 Instructions* Patient Instructions* Norma Kapoor - 03/26/2024 12:00 PM EDT Images from the original note were not included. DATE: 04/01/24 ARRIVAL TIME: 11:30am LOCATION: [facility] [place] [id number] EGD With CRUZ pH Monitoring Please review all the instructions about your test and prep as soon as you get them, so you can prepare. Important things to remember: You CANNOT have this test if you have a nickel allergy as the device used in this test contains nickel. Please call your health care provider to discuss other options. You CANNOT have this test if you have a cardiac pacemaker, defibrillator, or Holter monitoring. These devices may cause problems with the Cruz recording. Please call your health care provider to discuss other options. Acid reducing medicines must be stopped at least 7 days before the test. See details below. Blood thinning medicines must be stopped before the test unless you have a stent or certain other health problems. See details below. An adult must take you home after the test. If you are taking a cab, bus, or medical transportationservice home after the test, an adult, other than the fuel oil truck driver, needs to ride with you for your safety. Medicine given to help you relax during the test will affect your judgment and reflexes much of the day. About your test An EGD is also called an upper GI endoscopy. It is done with a narrow, flexible tube that has a camera and lights that goes in through your mouth into the upper digestive tract. It allows your provider to look into your esophagus, stomach, and part of the small intestine, called the duodenum. During the EGD, your provider will attach a tiny capsule called a Cruz pH monitoring device to thelining of your esophagus, the food pipe that connects your throat to your stomach. This capsule checks the acid content (pH) in your esophagus. It also checks how often you have abnormal backflow (reflux) of stomach acid into your esophagus. The Cruz test helps your provider better understand yoursymptoms and make plans for your treatment. Learn more about this test at go.[facility].edu/bravo_test or scan the QR code with your smartphone or tablet camera. Review your medicines before the test with your provider Talk to your provider before the test about all of the medicines you are now taking, including overthe counter and prescription medicines, and vitamin and herbal supplements. Your doctor will tell you if you should stop taking any of them before this procedure and how soon to do it. 7 days before the test, you will need to stop taking the following medicines unless directed otherwise by your provider. If you do not stop these medicines 7 days before the test, the test will have to be rescheduled. These medicines include: dexlansoprazole (Dexilant) esomeprazole (Nexium) lansoprazole (Prevacid) omeprazole (Prilosec) omeprazole and sodium bicarbonate (Zegerid) pantoprazole (Protonix) rabeprazole (Aciphex) 3 days before the test, you will need to stop taking the following medicines: cimetidine (Tagamet) famotidine (Pepcid) nizatidine (Axid) You may take antacids, such as Devi[place], Gaviscon, Gelusil, Maalox, Milk of Magnesia, Mylanta, Rolaids, Pepto-Bismol, Tums, and others, up until the evening before the test. If you take medicines for diabetes: Do not take oral diabetes medicines on the day of your procedure. If you take injection medicines for diabetes, such as insulin, ask the doctor who ordered the medicines how to adjust your medicines for this procedure. If you take a blood thinner (anticoagulant or antiplatelet) medicine: Your doctor may tell you to stop taking it a certain number of days before your procedure. Or your doctor may tell you to keep taking it. Make sure that you understand exactly what your doctor wants you to do. Ask the doctor who ordered this medicine if it is safe for you to stop taking it before this procedure. If you have had a stent, especially a stent in your heart or brain, DO NOT STOP taking your blood thinner medicine until you are instructed by the doctor who placed the stent. If your doctor has told you NOT to stop taking these medicines before this procedure, please call [phone] and ask to talk to a nurse. If you take aspirin or NSAIDs, such as ibuprofen (Advil, Motrin, and Nuprin), naproxen (Aleve), or celecoxib (Celebrex) for pain, you do NOT need to stop taking these medicines before this procedure. You should continue all your other medicines with a sip of water unless you are instructed to make a change before this procedure. Start clear liquids only the evening before your test You may eat solid foods until 8 hours before your test. Drink clear liquids after that up to 4 hours before your test. These clear liquids are allowed, but avoid all red colored liquids: Water Fruit juices that you can see through such as apple, white cranberry or white grape Popsicles or ice chips Lida miya or lemon-[place] soda Gatorade, other sports drinks or other drink mix like Oz-Aid Clear broth or bouillon Gelatin Coffee or tea (no milk or cream added) Morning of your test Take your allowed medicines with a sip of water up to 2 hours before your test. Please leave all valuables and jewelry including piercings at home. Female patients should come prepared to give a urine sample in case a test is needed. Your fuel oil truck driver must be present when you sign in to proceed with your test. Bring these with you to your test: A list of all medicines, including prescription and over the counter medicines, and any vitamin or herbal products you are taking A list of your allergies List of medical conditions and previous surgeries A copy of advanced directives, such as a living will or power of tax attorney Your photo identification, insurance card, and co-payment, if needed Plan to arrive at the arrival time on your letter, so the staff can get you ready. Expect to be here 2 to 4 hours for your test and recovery time. If your fuel oil truck driver leaves the facility during the test, we will need a phone number where they can be reached. Your fuel oil truck driver needs to be within 30 minutes of the endoscopy unit. If you have illegal drugs or alcohol in your system, your procedure may be rescheduled for your safety. Having the test After you have registered, you will change into a hospital gown. A nurse will review your medicine list and medical history. An intravenous (IV) line will be placed to give you medicine during the test. Let the nurse know right away if you have had problems having an IV placed in the past. When the nurse has you ready, you will be taken to a private room, where your test will be done. You will be given a consent form to read over. Your provider will talk to you, and go over the consent form. Ask any questions you have about the test before you sign the form. You will be given medicines in your IV to help you relax. You will likely rest on your left side. Your throat may be sprayed with a numbing medicine. Your provider will pass another tube through your mouth and into your esophagus, stomach, and duodenum. After the test You will be taken to a recovery area for 30 to 45 minutes. You will then change back into your clothes. Your provider will speak with you and your family member before you leave. Plan to take the day off of work and rest at home after the test. The medicine given during the test can cause you to have memory changes and impair your judgment much of the day. Do not drive a motorized vehicle or operate heavy machinery. Do not sign any papers or make any legal decisions. You will need to continue to stop taking the medicines listed or as your doctor instructed for 48 hours after the Cruz pH monitoring device is placed. Talk to your health care team if you have questions about when to restart your medicines. Mail the recorder back to us in the pre-paid, pre-addressed UPS or USPS box when your test is done. DATE: 04/16/24 LOCATION: [address] [place] [id number] ARRIVAL TIME: 7:15am Esophageal Manometry You are scheduled for a test called an esophageal manometry. This is a test that measures the pressure in your esophagus to see if it is working as it should. The test may be used for people who have: Trouble or pain when swallowing Heartburn Gastroesophageal reflux disease or GERD To prepare On the day before the test, you may have regular meals. Do not eat or drink anything after midnight. This includes gum or mints. Talk with your health care provider before the test: If you have any allergies to medicines. If you are . Past surgeries or other medical conditions you have. You may need to make changes to your medicines Talk to your provider before the test about medicines you are now taking, including over the counter and prescription medicines, and vitamin and herbal supplements. Your doctor will tell you if you should stop taking any of them before this procedure and how soon to do it. If you take aspirin or NSAIDs, such as ibuprofen (Advil, Motrin, and Nuprin), naproxen (Aleve), or celecoxib (Celebrex) for pain, you do NOT need to stop taking these medicines before this procedure. If you take medicines for diabetes, ask the provider who ordered your diabetes medicine how to adjust your medicines for the test. If you take a blood thinner (anticoagulant or antiplatelet) medicine: Your doctor may tell you to stop taking it a certain number of days before your procedure. Or your doctor may tell you to keep taking it. Make sure that you understand exactly what your doctor wants you to do. Ask the doctor who ordered this medicine if it is safe for you to stop taking it before this procedure. If you have had a stent, especially a stent in your heart or brain, DO NOT STOP taking your blood thinner medicine until you are instructed by the doctor who placed the stent. If your doctor has told you NOT to stop taking these medicines before this procedure, please call [phone] and ask to talk to a nurse. The Day of the Test Please arrive 30 minutes before the test begins, and check in at Registration. Expect to be at the facility for 1 hour. This test often lasts 30 to 40 minutes. You will not be sedated for this test so you may drive home after. During the Test You will be asked to lie down. Before the test starts, the inside of your nose will be numbed with gel. Your throat may also be sprayed to make the test more comfortable for you. A small flexible tube, called a catheter, will be inserted through your nose. You will be asked to swallow so that the tube goes into your esophagus. It will not affect your breathing. You will feel some pressure as the tube moves into place in your lower esophageal sphincter. The tube is attached to a computer that measures the muscles in your esophagus. You will be asked to swallow to see how your esophagus is working. Figure 1: The catheter is inserted into the nose. The computer records the pressure of the lower esophageal sphincter. Figure 2: The catheter is inserted into the nose and into the esophagus to measure the pressure of the lower esophageal sphincter. After the Test You may feel some soreness in your throat after the test. This is normal. Your doctor will receive a report of your test results and will contact you about your results. If you think you may have some signs that are not normal after this test, please contact your doctor. Your throat was not sprayed. You may return to your normal diet, medicines, and activity. Your throat was sprayed. Wait 1 hour before eating, drinking, or taking medicines. [facility] NoteHNO ID: [id number] Author: AGATHA BERNABE MD Service: ? Author Type: Physician Type: Progress Notes Filed: 03/04/2024 12:04 Note Text: [facility] [address] [place] [address] Agatha Bernabe MD Reflux H/P History of Present Illness: Patient is a 74 year old female whose Body mass index is 25.97 kg/m?. who presents to general surgery clinic for initial consultation. The patient presents with chief complaint of New Patient. They report a history of heartburn, dysphagia, and regurgitation which have been ongoing for for last 8 months or so with heartburn and regurg. She did have relief after her surgery in 2021 for at least a year. Exacerbating factors: tomato based foods, acidic foods . Alleviating factors: sitting up, taking antacids, and elevating the head. Additional symptoms: None. Prior workup: EGD. Laparoscopic PEHR with Toupet fundoplication-09/04/2021- reviewed op note from Dr Pimentel at [facility]- done with ethibond suture Lap cholecystectomy 2013 Interval update: Continues to have severe heartburn and occasional regurgitation. She feels the acid build up in her throat as well. Symptoms did worsen when she had to stop her PPI and improved once restarted. Review of Systems: Review of Systems Constitutional: Negative. HENT: Negative. Eyes: Negative. Respiratory: Negative. Cardiovascular: Negative. Gastrointestinal: Positive for heartburn. Genitourinary: Negative. Musculoskeletal: Negative. Skin: Negative. Neurological: Negative. Endo/Heme/Allergies: Negative. Psychiatric/Behavioral: Negative. Past Medical History: PAST MEDICAL HISTORY Diagnosis Date Arrhythmia Benign neoplasm of stomach Bicuspid aortic valve Blood dyscrasia Chronic back pain Chronic obstructive pulmonary disease (COPD) (HCC) Coronary artery disease Diverticulosis 03/10/2023 AQUINO (dyspnea on exertion) Duodenitis without mention of hemorrhage DVT (deep venous thrombosis) ([facility]) 12/2007 Right Lower leg DVT (deep venous thrombosis) ([facility]) 2010 Essential hypertension Factor V Leiden (HCC) GERD (gastroesophageal reflux disease) Hiatal hernia repaire 2021 AND recurrent 2023 High cholesterol History of IBS Hypothyroidism (acquired) Mini stroke 2011 Personal history of colonic polyps 11/28/2008 Postmenopausal bleeding Postmenop. bleeding RUQ pain 11/04/2013 Stroke (HCC) Syncope Tubular adenoma of colon 08/17/2004 in 2005, 2008 Tubular adenoma of rectum 12/06/2004 Vertigo Past Surgical History: PAST SURGICAL HISTORY Procedure Laterality Date ; THYROIDECTOMY TOTAL OR COMPLETE 2009 COLONOSCOPY 11/22/2005 COLONOSCOPY 12/15/2006 COLONOSCOPY 12/27/2011 Normal - 5 yr follow up - prior polyps COLONOSCOPY [address] Yoselin Sheikh COLONOSCOPY 10/16/2018 EGD WITH BIOPSY(S) 11/22/2005 EGD WITH BIOPSY(S) 12/15/2006 EGD WITH BIOPSY(S) 11/28/2008 GASTRIC POLYPS, SMALL HIATAL HERNIA EGD WITH BIOPSY(S) 12/27/2011 small to mod hiatal hernia, duodenitis - mild EGD WITH BIOPSY(S) 10/25/2014 small hiatal hernia, EGD WITH BIOPSY(S) 10/16/2018 small hiatal hernia; Dr. Royal EGD WITH BIOPSY(S) 11/26/2023 large recurrent hiatal hernia; Dr. Trejo EGD WITH BIOPSY(S) 02/11/2024 [place] Grade D esophagitis; large recurrent HH; Dr. Rosaline Asher COLONOSCOPY WITH POLYPECTOMY 11/28/2008 SMALL POLYPS TRANSVERSE FINGER SURGERY HX thumb LAPAROSCOPY SURG CHOLECYSTECTOMY 11/04/2013 LAPS RPR PARAESPHGL HRNA INCL FUNDPLSTY W/O MESH 09/04/2021 Toupet; Dr. Pimentel at [facility] LEFT HEART CATH,PERCUTANEOUS 12/2007 RELEASE OF TRANSVERSE CARPAL LIGAMENT Bilateral REMV CATARACT EXTRACAP,INSERT LENS Bilateral S SPINAL CORD STIMULATOR, SPHINCTEROTOMY ANAL DIVISION SPHINCTER SPX 04/15/2005 For anal Fissures Current Medications: Current Outpatient Medications Medication Sig polyethylene glycol 3350 (MIRALAX) 17 gram/dose powder 17 g. As needed acetaminophen (TYLENOL) 500 mg tablet Take 1,000 mg by mouth. MULTI-VITAMIN ORAL Take by mouth. levothyroxine (LEVOXYL) 75 mcg tablet Take 75 mcg by mouth once daily. atenolol 25 mg tablet Take 25 mg by mouth once daily. I/2 tab in AM and 1 tab at night simvastatin 80 mg tablet Take 0.5 tablets by mouth once daily. Tizanidine HCl 4 mg capsule Take 1 capsule by mouth three times daily. warfarin (COUMADIN) 3 mg tablet once daily. Takes 3 mg on tu and th. 2 mg on mon, wed, fri, sat, sun omeprazole(PRILOSEC 40 MG CAP) Take one(1) capsule daily. (Patient taking differently: Take by mouth. 20 mg twice a day) No current facility-administered medications for this visit. Allergies: Contrast Dye, Levaquin [Levofloxacin], and Naproxen Family Medical History: FAMILY HISTORY Problem Relation Age of Onset Diabetes Mother Hypertension Mother Stroke Father Heavy smoker Social History: Social History Tobacco Use Smoking status: Never Sm (more content not included)...[facility]10-03-2024 History of Present illness Narrative* Agatha Bernabe MD - 03/04/2024 10:45 AM EDT Images from the original note were not included. [facility] [address] [place] [address] Agatha Bernabe MD Reflux H/P History of Present Illness: Patient is a 74 year old female whose Body mass index is 25.97 kg/m . who presents to general surgery clinic for initial consultation. The patient presents with chief complaint of New Patient. They report a history of heartburn, dysphagia, and regurgitation which have been ongoing for for last 8 months or so with heartburn and regurg. She did have relief after her surgery in 2021 for at least a year. Exacerbating factors: tomato based foods, acidic foods . Alleviating factors: sitting up, taking antacids, and elevating the head. Additional symptoms: None. Prior workup: EGD. Laparoscopic PEHR with Toupet fundoplication-09/04/2021- reviewed op note from Dr Pimentel at [facility]- done with ethibond suture Lap cholecystectomy 2013 Interval update: Continues to have severe heartburn and occasional regurgitation. She feels the acid build up in herthroat as well. Symptoms did worsen when she had to stop her PPI and improved once restarted. Review of Systems: Review of Systems Constitutional: Negative. HENT: Negative. Eyes: Negative. Respiratory: Negative. Cardiovascular: Negative. Gastrointestinal: Positive for heartburn. Genitourinary: Negative. Musculoskeletal: Negative. Skin: Negative. Neurological: Negative. Endo/Heme/Allergies: Negative. Psychiatric/Behavioral: Negative. Past Medical History: PAST MEDICAL HISTORY Diagnosis Date Arrhythmia Benign neoplasm of stomach Bicuspid aortic valve Blood dyscrasia Chronic back pain Chronic obstructive pulmonary disease (COPD) (HCC) Coronary artery disease Diverticulosis 03/10/2023 AQUINO (dyspnea on exertion) Duodenitis without mention of hemorrhage DVT (deep venous thrombosis) (HCC) 12/2007 Right Lower leg DVT (deep venous thrombosis) (HCC) 2010 Essential hypertension Factor V Leiden (HCC) GERD (gastroesophageal reflux disease) Hiatal hernia repaire 2021 & recurrent 2023 High cholesterol History of IBS Hypothyroidism (acquired) Mini stroke 2010 Personal history of colonic polyps 11/28/2008 Postmenopausal bleeding Postmenop. bleeding RUQ pain 11/04/2013 Stroke (HCC) Syncope Tubular adenoma of colon 08/17/2004 in 2005, 2008 Tubular adenoma of rectum 12/06/2004 Vertigo Past Surgical History: PAST SURGICAL HISTORY Procedure Laterality Date ; THYROIDECTOMY TOTAL OR COMPLETE 2009 COLONOSCOPY 11/22/2005 COLONOSCOPY 12/15/2006 COLONOSCOPY 12/27/2011 Normal - 5 yr follow up - prior polyps COLONOSCOPY [address] Yoselin Sheikh COLONOSCOPY 10/16/2018 EGD WITH BIOPSY(S) 11/22/2005 EGD WITH BIOPSY(S) 12/15/2006 EGD WITH BIOPSY(S) 11/28/2008 GASTRIC POLYPS, SMALL HIATAL HERNIA EGD WITH BIOPSY(S) 12/27/2011 small to mod hiatal hernia, duodenitis - mild EGD WITH BIOPSY(S) 10/25/2014 small hiatal hernia, EGD WITH BIOPSY(S) 10/16/2018 small hiatal hernia; Dr. Royal EGD WITH BIOPSY(S) 11/26/2023 large recurrent hiatal hernia; Dr. Trejo EGD WITH BIOPSY(S) 02/11/2024 [place] Grade D esophagitis; large recurrent HH; Dr. Rosaline Asher COLONOSCOPY WITH POLYPECTOMY 11/28/2008 SMALL POLYPS TRANSVERSE FINGER SURGERY HX thumb LAPAROSCOPY SURG CHOLECYSTECTOMY 11/04/2013 LAPS RPR PARAESPHGL HRNA INCL FUNDPLSTY W/O MESH 09/04/2021 Toupet; Dr. Pimentel at [facility] LEFT HEART CATH,PERCUTANEOUS 12/2007 RELEASE OF TRANSVERSE CARPAL LIGAMENT Bilateral REMV CATARACT EXTRACAP,INSERT LENS Bilateral S SPINAL CORD STIMULATOR, SPHINCTEROTOMY ANAL DIVISION SPHINCTER SPX 04/15/2005 For anal Fissures Current Medications: Current Outpatient Medications Medication Sig polyethylene glycol 3350 (MIRALAX) 17 gram/dose powder 17 g. As needed acetaminophen (TYLENOL) 500 mg tablet Take 1,000 mg by mouth. MULTI-VITAMIN ORAL Take by mouth. levothyroxine (LEVOXYL) 75 mcg tablet Take 75 mcg by mouth once daily. atenolol 25 mg tablet Take 25 mg by mouth once daily. I/2 tab in AM and 1 tab at night simvastatin 80 mg tablet Take 0.5 tablets by mouth once daily. Tizanidine HCl 4 mg capsule Take 1 capsule by mouth three times daily. warfarin (COUMADIN) 3 mg tablet once daily. Takes 3 mg on and th. 2 mg on mon, fri, fri, sat, sun omeprazole(PRILOSEC 40 MG CAP) Take one(1) capsule daily. (Patient taking differently: Take by mouth. 20 mg twice a day) No current facility-administered medications for this visit. Allergies: Contrast Dye, Levaquin [Levofloxacin], and Naproxen Family Medical History: FAMILY HISTORY Problem Relation Age of Onset Diabetes Mother Hypertension Mother Stroke Father Heavy smoker Social History: Social History Tobacco Use Smoking status: Never Smokeless tobacco: Never Vaping Use Vaping status: Never Used Substance Use Topics Alcohol use: No Drug use: No Physical Examination: BP 116/72 Pulse 63 Ht 149.9 cm (4' 11) Wt 58.3 kg (128 lb 9.6 oz) BMI 25.97 kg/m Body massindex is 25.97 kg/m . Physical Exam Constitutional: Appearance: Normal appearance. HENT: Head: Normocephalic and atraumatic. Nose: Nose normal. Mouth/Throat: Mouth: Mucous membranes are moist. Eyes: Extraocular Movements: Extraocular movements intact. Pupils: Pupils are equal, round, and reactive to light. Cardiovascular: Rate and Rhythm: Normal rate. Pulses: Normal pulses. Pulmonary: Effort: Pulmonary effort is normal. Abdominal: Palpations: Abdomen is soft. Musculoskeletal: General: Normal range of motion. Cervical back: Normal range of motion and neck supple. Skin: General: Skin is warm and dry. Neurological: General: No focal deficit present. Mental Status: She is alert and oriented to person, place, and time. Psychiatric: Mood and Affect: Mood normal. Behavior: Behavior normal. Radiologic/Endoscopic/Laboratory Studies to Date EGD 11/26/23 Dr. Trejo recurrent hiatal hernia with toupet fundoplication EGD on 02/11/24 shows severe esophagitis, moderate size hiatal hernia with part of the wrap herniated, attempted Cruz placement however sloughed off and would not take Manometry 08/02/21- IRP 11.4 50% ineffective swallows and 33% failed swallows - ineffective esophageal motility Assessment: Patient is a 74 year old female with recurrent paraesophageal hernia with severe GERD symptoms. EGD shows moderate recurrent hernia with part of the wrap herniated however no narrowing to suggestobstruction. Severe esophagitis may be due to ineffective swallows and acid reflux. At this point, I do not believe a repeat hernia repair would improve her symptoms significantly and it has significant risk of injury to surrounding structures with scar tissue. I think we need a better acid reflux control with Dexilant as she is refractory to omeprazole and to reassess after. ASSESSMENT/PLAN: 1. Paraesophageal hernia - ICD9: 553.3, ICD10: K44.9 (primary diagnosis) Would hold off on repair at this time, if her symptoms do not improve with medication alone, will refer her to my partner for repair 2. Gastroesophageal reflux disease with esophagitis without hemorrhage - ICD9: 530.81, 530.10, ICD10: K21.00 Start Dexilant 60 mg daily Agatha Bernabe MD MS [facility] Medical Decision Making: Problems: Moderate: 2+ stable chronic illnesses Data: Unique test result(s) reviewed: 1 Independent interpretation of test from other physician/QHCP Risk: Moderate: Drug management Medical Decision Making Level: 4 - Moderate [facility] History and physical note * Fatou Grove APRN.PUBLICATIONS EDITOR - 02/11/2024 3:10 PM EDT HISTORY AND PHYSICAL EXAMINATION SERVICE DATE: 02/11/2024 SERVICE TIME: 2:23 PM PRIMARY CARE PHYSICIAN: Adelina Alvarenga DO REASON FOR VISIT: The reason for this visit is To perform a comprehensive review of the patients past medical history, assess their current health status and obtain any additional testing required based on anesthesia guidelines. To assess and identify potential anesthesia problems, particularly those that may suggest potential complications or contraindications to the planned procedure. The patient has the following: ACTIVE PROBLEM LIST Personal History of Colonic Polyps Anal Fissure Benign Neoplasm of Colon Duodenitis Without Mention of Hemorrhage Esophagitis, Unspecified Gastroesophageal Reflux Disease Without Esophagitis Nontoxic Multinodular Goiter Abdominal Pain, Unspecified Site Paraesophageal Hernia Malignant Neoplasm of Thyroid Gland (Hcc) Other Symptoms Involving Digestive System(787.99) Benign Neoplasm of Stomach Abdominal Pain, Epigastric Constipation Anal Or Rectal Pain Pre-Op Examination Stroke (Hcc) Factor V Leiden (Hcc) Dvt (Deep Venous Thrombosis) (Former[facility]) Postoperative Hypothyroidism Primary Hypertension Mixed Hyperlipidemia Subjective CHIEF COMPLAINT: Preoperative Examination HPI: Patient present to [facility] for the above procedure. Patient here for routine Upper GI Endoscopy screening. Patient states that she believes her last EGD was around July of 2021 in [place]. Endorses nausea, vomiting, and stomach burning. Patient denies any diarrhea or constipation. Denies anyabdominal pain. Denies any melena, hematochezia, or hematemesis. Patient denies any other problems at this time. Denies any family history of colon cancer or other gastric cancer. Patient is agreeable to planned procedure. METS: Walk a block or two on level ground (2.75 METs) Patient denies any CP/SOB with above activity. PAST MEDICAL HISTORY No date: Arrhythmia No date: Benign neoplasm of stomach No date: Bicuspid aortic valve No date: Blood dyscrasia No date: Chronic back pain No date: Chronic obstructive pulmonary disease (COPD) ([facility]) No date: Coronary artery disease 03/10/2023: Diverticulosis No date: AQUINO (dyspnea on exertion) No date: Duodenitis without mention of hemorrhage 12/2007: DVT (deep venous thrombosis) ([facility]) Comment: Right Lower leg 2010: DVT (deep venous thrombosis) ([facility]) No date: Essential hypertension No date: Factor V Leiden ([facility]) No date: GERD (gastroesophageal reflux disease) No date: Hiatal hernia Comment: repaire 2021 & recurrent 2023 No date: High cholesterol No date: History of IBS No date: Hypothyroidism (acquired) 2010: Mini stroke 11/28/2008: Personal history of colonic polyps No date: Postmenopausal bleeding Comment: Postmenop. bleeding 11/04/2013: RUQ pain No date: Stroke ([facility]) No date: Syncope 08/17/2004: Tubular adenoma of colon Comment: in 200812/06/2004: Tubular adenoma of rectum No date: Vertigo PAST SURGICAL HISTORY 2010: ; THYROIDECTOMY TOTAL OR COMPLETE 11/22/2005: COLONOSCOPY 12/15/2006: COLONOSCOPY 12/27/2011: COLONOSCOPY Comment: Normal - 5 yr follow up - prior polyps 2017: COLONOSCOPY Comment: by Dr Yoselin Sheikh 10/16/2018: COLONOSCOPY 11/22/2005: EGD WITH BIOPSY(S) 12/15/2006: EGD WITH BIOPSY(S) 11/28/2008: EGD WITH BIOPSY(S) Comment: GASTRIC POLYPS, SMALL HIATAL HERNIA 12/27/2011: EGD WITH BIOPSY(S) Comment: small to mod hiatal hernia, duodenitis - mild 10/25/2014: EGD WITH BIOPSY(S) Comment: small hiatal hernia, 10/16/2018: EGD WITH BIOPSY(S) Comment: small hiatal hernia; Dr. Royal 11/26/2023: EGD WITH BIOPSY(S) Comment: large recurrent hiatal hernia; Dr. Trejo 11/28/2008: F COLONOSCOPY WITH POLYPECTOMY Comment: SMALL POLYPS TRANSVERSE No date: FINGER SURGERY HX Comment: thumb 11/04/2013: LAPAROSCOPY SURG CHOLECYSTECTOMY 09/04/2021: LAPS RPR PARAESPHGL HRNA INCL FUNDPLSTY W/O MESH Comment: Grabiel; Dr. Pimentel at [facility] 12/2007: LEFT HEART CATH,PERCUTANEOUS No date: RELEASE OF TRANSVERSE CARPAL LIGAMENT; Bilateral No date: REMV CATARACT EXTRACAP,INSERT LENS; Bilateral No date: S SPINAL CORD STIMULATOR, 04/15/2005: SPHINCTEROTOMY ANAL DIVISION SPHINCTER SPX Comment: For anal Fissures FAMILY HISTORY Problem Relation Age of Onset Diabetes Mother Hypertension Mother Stroke Father Heavy smoker SOCIAL HISTORY: Social History Tobacco Use Smoking status: Never Smokeless tobacco: Never Substance Use Topics Alcohol use: No Drug use: No Prior to Admission medications as of 02/11/24 1422 Medication Sig Last Dose Taking MULTI-VITAMIN ORAL Take by mouth. 02/10/2024 Yes levothyroxine (LEVOXYL) 75 mcg tablet Take 75 mcg by mouth once daily. 02/11/2024 at 0630 Yes atenolol 25 mg tablet Take 25 mg by mouth once daily. I/2 tab in AM and 1 tab at night 02/11/2024 [id number] Yes simvastatin 80 mg tablet Take 0.5 tablets by mouth once daily. 02/10/2024 at 2100 Yes Tizanidine HCl 4 mg capsule Take 1 capsule by mouth three times daily. 02/10/2024 at 2000 Yes warfarin (COUMADIN) 3 mg tablet once daily. 02/05/2024 omeprazole(PRILOSEC 40 MG CAP) Take one(1) capsule daily. 02/05/2024 No medication comments found. ALLERGIES Allergen Reactions Contrast Dye Hives Levaquin [Levofloxa* Other: See Comments Abd pain Naproxen GI Upset REVIEW OF SYSTEMS: PAIN ASSESSMENT: Pain Pain Level: 0 Pain Assessment: Assessment Tool: Verbal (Numeric Rating or Visual Analog Scale) General: Denies fever, chills, and unexpected weight change. Neuro: Denies dizziness and headaches. +hx stroke Respiratory: Denies SOB. Cardiovascular: Denies CP and palpitations. +HTN +HLD GI: See HPI. : Denies dysuria. Endocrine: No history of diabetes. +hypothyroid Hematology: Denies history of bleeding or clotting disorder. No known autoimmune disorders. Psych: Denies anxiety/depression. Musculoskeletal: Denies joint pain and swelling. Skin: Denies open sores and rashes. Objective PHYSICAL EXAM: VITALS: BP 132/77 Pulse 62 Temp 96.8 Resp 14 SpO2 98% O2 Therapy: Room Air General: NAD. Cooperative. Skin: Skin is warm, no rashes, and no open sores. HEENT: Normocephalic. Cardiovascular: Normal S1 & S2. No murmur. Lungs: CTA Bilaterally. No respiratory distress. Abdomen: Soft. Pos BS x4quad Extremities: No edema. Neurological: Alert and oriented to person, place, and time. Pulses: radial pulses +2 Diagnostic tests reviewed for today's visit: Lab Value Units Date High Low HB No results within date range. HCT No results within date range. WBC No results within date range. PLT No results within date range. NA No results within date range. K No results within date range. GLUC No results within date range. BUN No results within date range. CREAT No results within date range. PTSEC No results within date range. INR No results within date range. APTT No results within date range. ALT No results within date range. AST No results within date range. TBILI No results within date range. TSH No results within date range. Lab Value Units Date High Low HCGQT No results within date range. UHCG No results within date range. HCG, BODY* No results within date range. Lab Value Units Date High Low ABORHD No results within date range. ABSCREEN No results within date range. No results found for: HBA1C Assessment/Plan Patient has the following medical conditions which may affect tete-operative course Problem List Items Addressed This Visit Neurology Stroke ([facility]) Current Assessment & Plan Patient states mini stroke many years ago. Denies any residual deficits. Cardiovascular Primary hypertension Current Assessment & Plan Atenolol- last dose taken today. Continue as prescribed. Mixed hyperlipidemia Current Assessment & Plan Simvastatin- last dose taken yesterday. Continue as prescribed. Pulmonary Paraesophageal hernia Current Assessment & Plan EGD today. Relevant Orders EGD - THERAPEUTIC, EUS, OR TUBE INTERVENTIONS Gastrointestinal Gastroesophageal reflux disease without esophagitis Current Assessment & Plan Omeprazole- last dose taken 02/05/24. EGD today. Endocrinology Postoperative hypothyroidism Current Assessment & Plan Levothyroxine- last dose taken today. Continue as prescribed. Hematology Factor V Leiden [facility] [facility] Current Assessment & Plan Diagnosed after previous DVT's. Does not follow with hematology. DVT (deep venous thrombosis) ([facility]) Current Assessment & Plan Occurred in 2007 and 2010. Coumadin- last dose taken 02/05/24. Other Pre-op examination - Primary Current Assessment & Plan see note for medical conditions which may affect tete-operative course that were addressed at today's visit. 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 ANESTHESIA FINDINGS: Significant Anesthesia Considerations: None Planned Anesthetic: MAC I spent a total of 20 minutes on the date of the service which included preparing to see the patient, [id number] patient care, completing clinical documentation, and performing a medically appropriate examination. Instructions Given to Patient: Patient given verbal preop instructions and voices comprehension and compliance. SIGNATURE: Fatou Grove APRN.CNP PATIENT NAME: Anusha Vidal DATE: February 11, 2024 TIME: 1:50 PM PAGER/CONTACT #: [facility]09-11-2024 History and physical note* Fatou Grove APRN.CNP - 02/11/2024 3:10 PM EDT HISTORY AND PHYSICAL EXAMINATION SERVICE DATE: 02/11/2024 SERVICE TIME: 2:23 PM PRIMARY CARE PHYSICIAN: Adelina Alvarenga DO REASON FOR VISIT: The reason for this visit is To perform a comprehensive review of the patients past medical history, assess their current health status and obtain any additional testing required based on anesthesia guidelines. To assess and identify potential anesthesia problems, particularly those that may suggest potential complications or contraindications to the planned procedure. The patient has the following: ACTIVE PROBLEM LIST Personal History of Colonic Polyps Anal Fissure Benign Neoplasm of Colon Duodenitis Without Mention of Hemorrhage Esophagitis, Unspecified Gastroesophageal Reflux Disease Without Esophagitis Nontoxic Multinodular Goiter Abdominal Pain, Unspecified Site Paraesophageal Hernia Malignant Neoplasm of Thyroid Gland (Hcc) Other Symptoms Involving Digestive System(787.99) Benign Neoplasm of Stomach Abdominal Pain, Epigastric Constipation Anal Or Rectal Pain Pre-Op Examination Stroke (Hcc) Factor V Leiden (Hcc) Dvt (Deep Venous Thrombosis) (Hcc) Postoperative Hypothyroidism Primary Hypertension Mixed Hyperlipidemia Subjective CHIEF COMPLAINT: Preoperative Examination HPI: Patient present to [facility] for the above procedure. Patient here for routine Upper GI Endoscopy screening. Patient states that she believes her last EGD was around July of 2021 in [place]. Endorses nausea, vomiting, and stomach burning. Patient denies any diarrhea or constipation. Denies anyabdominal pain. Denies any melena, hematochezia, or hematemesis. Patient denies any other problems at this time. Denies any family history of colon cancer or other gastric cancer. Patient is agreeable to planned procedure. METS: Walk a block or two on level ground (2.75 METs) Patient denies any CP/SOB with above activity. PAST MEDICAL HISTORY No date: Arrhythmia No date: Benign neoplasm of stomach No date: Bicuspid aortic valve No date: Blood dyscrasia No date: Chronic back pain No date: Chronic obstructive pulmonary disease (COPD) ([facility]) No date: Coronary artery disease 03/10/2023: Diverticulosis No date: AQUINO (dyspnea on exertion) No date: Duodenitis without mention of hemorrhage 12/2007: DVT (deep venous thrombosis) ([facility]) Comment: Right Lower leg 2010: DVT (deep venous thrombosis) ([facility]) No date: Essential hypertension No date: Factor V Leiden ([facility]) No date: GERD (gastroesophageal reflux disease) No date: Hiatal hernia Comment: repaire 2021 & recurrent 2023 No date: High cholesterol No date: History of IBS No date: Hypothyroidism (acquired) 2010: Mini stroke 11/28/2008: Personal history of colonic polyps No date: Postmenopausal bleeding Comment: Postmenop. bleeding 11/04/2013: RUQ pain No date: Stroke (HCC) No date: Syncope 08/17/2004: Tubular adenoma of colon Comment: in 2005, 200812/06/2004: Tubular adenoma of rectum No date: Vertigo PAST SURGICAL HISTORY 2010: ; THYROIDECTOMY TOTAL OR COMPLETE 11/22/2005: COLONOSCOPY 12/15/2006: COLONOSCOPY 12/27/2011: COLONOSCOPY Comment: Normal - 5 yr follow up - prior polyps 2017: COLONOSCOPY Comment: by Dr Yoselin Sheikh 10/16/2018: COLONOSCOPY 11/22/2005: EGD WITH BIOPSY(S) 12/15/2006: EGD WITH BIOPSY(S) 11/28/2008: EGD WITH BIOPSY(S) Comment: GASTRIC POLYPS, SMALL HIATAL HERNIA 12/27/2011: EGD WITH BIOPSY(S) Comment: small to mod hiatal hernia, duodenitis - mild 10/25/2014: EGD WITH BIOPSY(S) Comment: small hiatal hernia, 10/16/2018: EGD WITH BIOPSY(S) Comment: small hiatal hernia; Dr. Royal 11/26/2023: EGD WITH BIOPSY(S) Comment: large recurrent hiatal hernia; Dr. Trejo 11/28/2008: F COLONOSCOPY WITH POLYPECTOMY Comment: SMALL POLYPS TRANSVERSE No date: FINGER SURGERY HX Comment: thumb 11/04/2013: LAPAROSCOPY SURG CHOLECYSTECTOMY 09/04/2021: LAPS RPR PARAESPHGL HRNA INCL FUNDPLSTY W/O MESH Comment: Kalyani Pimentel at [place] 12/2007: LEFT HEART CATH,PERCUTANEOUS No date: RELEASE OF TRANSVERSE CARPAL LIGAMENT; Bilateral No date: REMV CATARACT EXTRACAP,INSERT LENS; Bilateral No date: S SPINAL CORD STIMULATOR, 04/15/2005: SPHINCTEROTOMY ANAL DIVISION SPHINCTER SPX Comment: For anal Fissures FAMILY HISTORY Problem Relation Age of Onset Diabetes Mother Hypertension Mother Stroke Father Heavy smoker SOCIAL HISTORY: Social History Tobacco Use Smoking status: Never Smokeless tobacco: Never Substance Use Topics Alcohol use: No Drug use: No Prior to Admission medications as of 02/11/24 1422 Medication Sig Last Dose Taking MULTI-VITAMIN ORAL Take by mouth. 02/10/2024 Yes levothyroxine (LEVOXYL) 75 mcg tablet Take 75 mcg by mouth once daily. 02/11/2024 at 0630 Yes atenolol 25 mg tablet Take 25 mg by mouth once daily. I/2 tab in AM and 1 tab at night 02/11/2024 [id number] Yes simvastatin 80 mg tablet Take 0.5 tablets by mouth once daily. 02/10/2024 at 2100 Yes Tizanidine HCl 4 mg capsule Take 1 capsule by mouth three times daily. 02/10/2024 at 2000 Yes warfarin (COUMADIN) 3 mg tablet once daily. 02/05/2024 omeprazole(PRILOSEC 40 MG CAP) Take one(1) capsule daily. 02/05/2024 No medication comments found. ALLERGIES Allergen Reactions Contrast Dye Hives Levaquin [Levofloxa* Other: See Comments Abd pain Naproxen GI Upset REVIEW OF SYSTEMS: PAIN ASSESSMENT: Pain Pain Level: 0 Pain Assessment: Assessment Tool: Verbal (Numeric Rating or Visual Analog Scale) General: Denies fever, chills, and unexpected weight change. Neuro: Denies dizziness and headaches. +hx stroke Respiratory: Denies SOB. Cardiovascular: Denies CP and palpitations. +HTN +HLD GI: See HPI. : Denies dysuria. Endocrine: No history of diabetes. +hypothyroid Hematology: Denies history of bleeding or clotting disorder. No known autoimmune disorders. Psych: Denies anxiety/depression. Musculoskeletal: Denies joint pain and swelling. Skin: Denies open sores and rashes. Objective PHYSICAL EXAM: VITALS: BP 132/77 Pulse 62 Temp 96.8 Resp 14 SpO2 98% O2 Therapy: Room Air General: NAD. Cooperative. Skin: Skin is warm, no rashes, and no open sores. HEENT: Normocephalic. Cardiovascular: Normal S1 & S2. No murmur. Lungs: CTA Bilaterally. No respiratory distress. Abdomen: Soft. Pos BS x4quad Extremities: No edema. Neurological: Alert and oriented to person, place, and time. Pulses: radial pulses +2 Diagnostic tests reviewed for today's visit: Lab Value Units Date High Low HB No results within date range. HCT No results within date range. WBC No results within date range. PLT No results within date range. NA No results within date range. K No results within date range. GLUC No results within date range. BUN No results within date range. CREAT No results within date range. PTSEC No results within date range. INR No results within date range. APTT No results within date range. ALT No results within date range. AST No results within date range. TBILI No results within date range. TSH No results within date range. Lab Value Units Date High Low HCGQT No results within date range. UHCG No results within date range. HCG, BODY* No results within date range. Lab Value Units Date High Low ABORHD No results within date range. ABSCREEN No results within date range. No results found for: HBA1C Assessment/Plan Patient has the following medical conditions which may affect tete-operative course Problem List Items Addressed This Visit Neurology Stroke ([facility]) Current Assessment & Plan Patient states mini stroke many years ago. Denies any residual deficits. Cardiovascular Primary hypertension Current Assessment & Plan Atenolol- last dose taken today. Continue as prescribed. Mixed hyperlipidemia Current Assessment & Plan Simvastatin- last dose taken yesterday. Continue as prescribed. Pulmonary Paraesophageal hernia Current Assessment & Plan EGD today. Relevant Orders EGD - THERAPEUTIC, EUS, OR TUBE INTERVENTIONS Gastrointestinal Gastroesophageal reflux disease without esophagitis Current Assessment & Plan Omeprazole- last dose taken 02/05/24. EGD today. Endocrinology Postoperative hypothyroidism Current Assessment & Plan Levothyroxine- last dose taken today. Continue as prescribed. Hematology Factor V Leiden ([facility]) Current Assessment & Plan Diagnosed after previous DVT's. Does not follow with hematology. DVT (deep venous thrombosis) ([facility]) Current Assessment & Plan Occurred in 2007 and 2010. Coumadin- last dose taken 02/05/24. Other Pre-op examination - Primary Current Assessment & Plan see note for medical conditions which may affect tete-operative course that were addressed at today's visit. 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 ANESTHESIA FINDINGS: Significant Anesthesia Considerations: None Planned Anesthetic: MAC I spent a total of 20 minutes on the date of the service which included preparing to see the patient, [id number] patient care, completing clinical documentation, and performing a medically appropriate examination. Instructions Given to Patient: Patient given verbal preop instructions and voices comprehension and compliance. SIGNATURE: Fatou Grove APRN.CNP PATIENT NAME: Anusha Vidal DATE: February 11, 2024 TIME: 1:50 PM PAGER/CONTACT #: [facility] Tele[facility] encounter Note * Telephone Encounter - Sanjuanita Canales LPN - 01/14/2024 12:47 PM EDT EGD/Cruz scheduled for 02/11/2024 at 2:30 pm. Prep/instructions given to patient at checkout. Letter sent to PCP/Adelina Alvarenga D.O. for instruction/clearance for coumadin. [facility]08-14-2024 Miscellaneous Notes* Telephone Encounter - Sanjuanita Canales LPN - 01/14/2024 12:47 PM EDT EGD/Cruz scheduled for 02/11/2024 at 2:30 pm. Prep/instructions given to patient at checkout. Letter sent to PCP/Adelina Alvarenga D.O. for instruction/clearance for coumadin. documented in this encounterL[facility]24 NoteHNO ID: [id number] Author: RICCI YIN RN Service: ? Author Type: Nurse Clinician Type: Progress Notes Filed: 01/14/2024 12:19 Note Text: Patient given written information about EGD and Cruz pH probe and the prep instructions. Verbally discussed and reviewed the information with the patient. All of patient's questions were answered. Patient has a spine stimulator and agreed to turn it off during the 48 hours of Cruz testing. Ricci Yin, [facility]08-14-2024 History of Present illness Narrative* Ricci Yin RN - 01/14/2024 11:34 AM EDT Patient given written information about EGD and Cruz pH probe and the prep instructions. Verbally discussed and reviewed the information with the patient. All of patient's questions were answered. Patient has a spine stimulator and agreed to turn it off during the 48 hours of Cruz testing. Ricci Yin RN * Agatha Bernabe MD - 01/14/2024 10:50 AM EDT Images from the original note were not included. [facility] [address] [place] [address] Agatha Bernabe MD New Reflux H/P Referred by: Luan Chapa* Consultation requested by Dr. Chapa for an opinion regarding recurrent hiatal hernia. My final recommendations will be communicated back to the requesting physician by way of shared Medical recordor letter to requesting physician via US mail. History of Present Illness: Patient is a 73 year old female whose Body mass index is 25.77 kg/m . who presents to general surgery clinic for initial consultation. The patient presents with chief complaint of New Patient. They report a history of heartburn, dysphagia, and regurgitation which have been ongoing for for last 8 months or so with heartburn and regurg. She did have relief after her surgery in 2021 for at least a year. Exacerbating factors: tomato based foods, acidic foods . Alleviating factors: sitting up, taking antacids, and elevating the head. Additional symptoms: None. Prior workup: EGD. Laparoscopic PEHR with Toupet fundoplication-09/04/2021- reviewed op note from Dr Pimentel at [place]- done with ethibond suture Lap cholecystectomy 2013 Review of Systems: Review of Systems Constitutional: Negative. HENT: Negative. Eyes: Negative. Respiratory: Negative. Cardiovascular: Negative. Gastrointestinal: Positive for heartburn. Genitourinary: Negative. Musculoskeletal: Negative. Skin: Negative. Neurological: Negative. Endo/Heme/Allergies: Negative. Psychiatric/Behavioral: Negative. Past Medical History: PAST MEDICAL HISTORY No date: Arrhythmia No date: Benign neoplasm of stomach No date: Bicuspid aortic valve No date: Blood dyscrasia No date: Chronic back pain No date: Chronic obstructive pulmonary disease (COPD) ([facility]) No date: Coronary artery disease 03/10/2023: Diverticulosis No date: AQUINO (dyspnea on exertion) No date: Duodenitis without mention of hemorrhage 12/2007: DVT (deep venous thrombosis) ([facility]) Comment: Right Lower leg 2010: DVT (deep venous thrombosis) ([facility]) No date: Essential hypertension No date: Factor V Leiden ([facility]) No date: GERD (gastroesophageal reflux disease) No date: Hiatal hernia Comment: repaire 2021 & recurrent 2023 No date: High cholesterol No date: History of IBS No date: Hypothyroidism (acquired) 2011: Mini stroke 11/28/2008: Personal history of colonic polyps No date: Postmenopausal bleeding Comment: Postmenop. bleeding 11/04/2013: RUQ pain No date: Stroke ([facility]) No date: Syncope 08/17/2004: Tubular adenoma of colon Comment: in 200812/06/2004: Tubular adenoma of rectum No date: Vertigo Past Surgical History: PAST SURGICAL HISTORY 2010: ; THYROIDECTOMY TOTAL OR COMPLETE 11/22/2005: COLONOSCOPY 12/15/2006: COLONOSCOPY 12/27/2011: COLONOSCOPY Comment: Normal - 5 yr follow up - prior polyps 2017: COLONOSCOPY Comment: by Dr Yoselin Sheikh 10/16/2018: COLONOSCOPY 11/22/2005: EGD WITH BIOPSY(S) 12/15/2006: EGD WITH BIOPSY(S) 11/28/2008: EGD WITH BIOPSY(S) Comment: GASTRIC POLYPS, SMALL HIATAL HERNIA 12/27/2011: EGD WITH BIOPSY(S) Comment: small to mod hiatal hernia, duodenitis - mild 10/25/2014: EGD WITH BIOPSY(S) Comment: small hiatal hernia, 10/16/2018: EGD WITH BIOPSY(S) Comment: small hiatal hernia; Dr. Royal 11/26/2023: EGD WITH BIOPSY(S) Comment: large recurrent hiatal hernia; Dr. Trejo 11/28/2008: F COLONOSCOPY WITH POLYPECTOMY Comment: SMALL POLYPS TRANSVERSE No date: FINGER SURGERY HX Comment: thumb 11/04/2013: LAPAROSCOPY SURG CHOLECYSTECTOMY 09/04/2021: LAPS RPR PARAESPHGL HRNA INCL FUNDPLSTY W/O MESH Comment: Toupet; Dr. Pimentel at [place] 12/2007: LEFT HEART CATH,PERCUTANEOUS No date: RELEASE OF TRANSVERSE CARPAL LIGAMENT; Bilateral No date: REMV CATARACT EXTRACAP,INSERT LENS; Bilateral 04/15/2005: SPHINCTEROTOMY ANAL DIVISION SPHINCTER SPX Comment: For anal Fissures Current Medications: Current Outpatient Medications Medication Sig MULTI-VITAMIN ORAL Take by mouth. levothyroxine (LEVOXYL) 75 mcg tablet Take 75 mcg by mouth once daily. atenolol 25 mg tablet Take 25 mg by mouth once daily. I tab in AM and 1/2 tab at night Tizanidine HCl 4 mg capsule Take 1 capsule by mouth three times daily. sucralfate (CARAFATE) 1 gram tablet Take 1 tablet by mouth twice daily as needed. (Patient not taking: Reported on 01/07/2024) simvastatin 80 mg tablet Take 0.5 tablets by mouth once daily. acetaminophen-hydrocodone 5-500 mg tablet Take 1 tablet by mouth every 4 hours as needed. warfarin (COUMADIN) 3 mg tablet once daily. omeprazole(PRILOSEC 40 MG CAP) Take one(1) capsule daily. No current facility-administered medications for this visit. Allergies: Contrast Dye, Levaquin [Levofloxacin], and Naproxen Family Medical History: FAMILY HISTORY Problem Relation Age of Onset Diabetes Mother Hypertension Mother Stroke Father Heavy smoker Social History: Social History Tobacco Use Smoking status: Never Smokeless tobacco: Never Substance Use Topics Alcohol use: No Drug use: No Physical Examination: BP 122/84 Pulse 75 Ht 149.9 cm (4' 11) Wt 57.9 kg (127 lb 9.6 oz) BMI 25.77 kg/m Body massindex is 25.77 kg/m . Physical Exam Constitutional: Appearance: Normal appearance. HENT: Head: Normocephalic and atraumatic. Nose: Nose normal. Mouth/Throat: Mouth: Mucous membranes are moist. Eyes: Extraocular Movements: Extraocular movements intact. Pupils: Pupils are equal, round, and reactive to light. Cardiovascular: Rate and Rhythm: Normal rate. Pulses: Normal pulses. Pulmonary: Effort: Pulmonary effort is normal. Abdominal: Palpations: Abdomen is soft. Musculoskeletal: General: Normal range of motion. Cervical back: Normal range of motion and neck supple. Skin: General: Skin is warm and dry. Neurological: General: No focal deficit present. Mental Status: She is alert and oriented to person, place, and time. Psychiatric: Mood and Affect: Mood normal. Behavior: Behavior normal. Radiologic/Endoscopic/Laboratory Studies to Date EGD 11/26/23 Dr. Trejo recurrent hiatal hernia with toupet fundoplication Assessment: Patient is a 73 year old female with recurrent paraesophageal hernia with severe GERD symptoms. Shestates that she had done Manometry prior to her previous surgery and will obtain those records for us to review her esophageal motility. Plan I have discussed further workup of the patient's symptoms at great length today including proceeding with diagnostic EGD and a pH probe study. We also recommend the following additional studies:None. We have discussed both medical and surgical options with the patients today in clinic including Paraesophageal hernia repair and Toupet fundoplication. Once the patient has obtained the above studies, we will review the results at the next clinic visit to determine the appropriate plan of care to fit the patient's treatment goals. Return to clinic following completion of the above workup. ASSESSMENT/PLAN: 1. Paraesophageal hernia - ICD9: 553.3, ICD10: K44.9 (primary diagnosis) After assessment with EGD cruz and obtaining her Mano results from [facility], will discuss possible hernia repair 2. Gastroesophageal reflux disease without esophagitis - ICD9: 530.81, ICD10: K21.9 Continue [facility] Agatha Bernabe MD [place] [facility] Medical Decision Making: Problems: Moderate: 2+ stable chronic illnesses Data: Unique source(s) for external note(s) reviewed: 1 Unique test result(s) reviewed: 1 Unique test(s) ordered: 1 Discussed management or test w/ external physician/QHCP/source Risk: Moderate: Moderate risk from testing/treatment Medical Decision Making Level: 4 - Moderate documented in this encounterL[facility] Instructions* Patient Instructions* Agatha Bernabe MD - 01/14/2024 11:12 AM EDT PLEASE OBTAIN MANOMETRY RESULTS FROM [facility] AND FAX TO [facility] documented in this encounterL[facility]24 NoteHNO ID: [id number] Author: AGATHA BERNABE MD Service: ? Author Type: Physician Type: Progress Notes Filed: 01/14/2024 12:19 Note Text: [facility] [address] [place] [address] Agatha Bernabe MD New Reflux H/P Referred by: Luan Chapa* Consultation requested by Dr. Chapa for an opinion regarding recurrent hiatal hernia. My final recommendations will be communicated back to the requesting physician by way of shared Medical record or letter to requesting physician via US mail. History of Present Illness: Patient is a 73 year old female whose Body mass index is 25.77 kg/m?. who presents to general surgery clinic for initial consultation. The patient presents with chief complaint of New Patient. They report a history of heartburn, dysphagia, and regurgitation which have been ongoing for for last 8 months or so with heartburn and regurg. She did have relief after her surgery in 2021 for at least a year. Exacerbating factors: tomato based foods, acidic foods . Alleviating factors: sitting up, taking antacids, and elevating the head. Additional symptoms: None. Prior workup: EGD. Laparoscopic PEHR with Toupet fundoplication-09/04/2021- reviewed op note from Dr Pimentel at [place]- done with ethibond suture Lap cholecystectomy 2013 Review of Systems: Review of Systems Constitutional: Negative. HENT: Negative. Eyes: Negative. Respiratory: Negative. Cardiovascular: Negative. Gastrointestinal: Positive for heartburn. Genitourinary: Negative. Musculoskeletal: Negative. Skin: Negative. Neurological: Negative. Endo/Heme/Allergies: Negative. Psychiatric/Behavioral: Negative. Past Medical History: PAST MEDICAL HISTORY No date: Arrhythmia No date: Benign neoplasm of stomach No date: Bicuspid aortic valve No date: Blood dyscrasia No date: Chronic back pain No date: Chronic obstructive pulmonary disease (COPD) ([facility]) No date: Coronary artery disease 03/10/2023: Diverticulosis No date: AQUINO (dyspnea on exertion) No date: Duodenitis without mention of hemorrhage 12/2007: DVT (deep venous thrombosis) ([facility]) Comment: Right Lower leg 2011: DVT (deep venous thrombosis) ([facility]) No date: Essential hypertension No date: Factor V Leiden ([facility]) No date: GERD (gastroesophageal reflux disease) No date: Hiatal hernia Comment: repaire 2021 AND recurrent 2023 No date: High cholesterol No date: History of IBS No date: Hypothyroidism (acquired) 2011: Mini stroke 11/28/2008: Personal history of colonic polyps No date: Postmenopausal bleeding Comment: Postmenop. bleeding 11/04/2013: RUQ pain No date: Stroke ([facility]) No date: Syncope 08/17/2004: Tubular adenoma of colon Comment: in 2005, 200812/06/2004: Tubular adenoma of rectum No date: Vertigo Past Surgical History: PAST SURGICAL HISTORY 2010: ; THYROIDECTOMY TOTAL OR COMPLETE 11/22/2005: COLONOSCOPY 12/15/2006: COLONOSCOPY 12/27/2011: COLONOSCOPY Comment: Normal - 5 yr follow up - prior polyps 2017: COLONOSCOPY Comment: by Dr Yoselin Sheikh 10/16/2018: COLONOSCOPY 11/22/2005: EGD WITH BIOPSY(S) 12/15/2006: EGD WITH BIOPSY(S) 11/28/2008: EGD WITH BIOPSY(S) Comment: GASTRIC POLYPS, SMALL HIATAL HERNIA 12/27/2011: EGD WITH BIOPSY(S) Comment: small to mod hiatal hernia, duodenitis - mild 10/25/2014: EGD WITH BIOPSY(S) Comment: small hiatal hernia, 10/16/2018: EGD WITH BIOPSY(S) Comment: small hiatal hernia; Dr. Royal 11/26/2023: EGD WITH BIOPSY(S) Comment: large recurrent hiatal hernia; Dr. Trejo 11/28/2008: F COLONOSCOPY WITH POLYPECTOMY Comment: SMALL POLYPS TRANSVERSE No date: FINGER SURGERY HX Comment: thumb 11/04/2013: LAPAROSCOPY SURG CHOLECYSTECTOMY 09/04/2021: LAPS RPR PARAESPHGL HRNA INCL FUNDPLSTY W/O MESH Comment: Kalyani Pimentel at [facility] 12/2007: LEFT HEART CATH,PERCUTANEOUS No date: RELEASE OF TRANSVERSE CARPAL LIGAMENT; Bilateral No date: REMV CATARACT EXTRACAP,INSERT LENS; Bilateral 04/15/2005: SPHINCTEROTOMY ANAL DIVISION SPHINCTER SPX Comment: For anal Fissures Current Medications: Current Outpatient Medications Medication Sig MULTI-VITAMIN ORAL Take by mouth. levothyroxine (LEVOXYL) 75 mcg tablet Take 75 mcg by mouth once daily. atenolol 25 mg tablet Take 25 mg by mouth once daily. I tab in AM and 1/2 tab at night Tizanidine HCl 4 mg capsule Take 1 capsule by mouth three times daily. sucralfate (CARAFATE) 1 gram tablet Take 1 tablet by mouth twice daily as needed. (Patient not taking: Reported on 01/07/2024) simvastatin 80 mg tablet Take 0.5 tablets by mouth once daily. acetaminophen-hydrocodone 5-500 mg tablet Take 1 tablet by mouth every 4 hours as needed. warfarin (COUMADIN) 3 mg tablet once daily. omeprazole(PRILOSEC 40 MG CAP) Take one(1) capsule daily. No current facility-administered medications for this visit. Allergies: Contrast Dye, Levaquin [Levoflox (more content not included)...[facility]08-07-2024 Instructions* Patient Instructions* Luan Chapa MD - 01/07/2024 11:15 AM EDT Thank you for coming to see me today. It is my pleasure to take care of you. If you have any questions regarding your visit, please don't hesitate to contact us. [facility] NoteHNO ID: [id number] Author: LUAN CHAPA MD Service: ? Author Type: Physician Type: Progress Notes Filed: 01/07/2024 12:11 Note Text: Consultation requested by Dr. Alvarenga for an opinion regarding recurrent hiatal hernia. My final recommendations will be communicated back to the requesting physician by way of shared Medical record or letter to requesting physician via US mail. Anusha Vidal is a 73 year old White female who presents with complaints of GERD. Back in 2021 she had a hiatal hernia repair with a toupet fundoplication. She most recently had an EGD which showed a recurrence. She also reports having an upper GI. She was placed on 40 mg of pantoprazole which she states helps with her symptoms. Her symptoms consist of regurgitation and burning. She is on Coumadin for factor V Leiden deficiency. 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 No date: Bicuspid aortic valve No date: Blood dyscrasia No date: Chronic obstructive pulmonary disease (COPD) ([facility]) No date: Coronary artery disease No date: Duodenitis without mention of hemorrhage 12/2007: DVT (deep venous thrombosis) ([facility]) Comment: Right Lower leg 2010: DVT (deep venous thrombosis) ([facility]) No date: Factor V Leiden ([facility]) No date: Hiatal hernia Comment: small to mod 2011: Mini stroke 11/28/2008: Personal history of colonic polyps No date: Postmenopausal bleeding Comment: Postmenop. bleeding 11/04/2013: RUQ pain No date: Stroke ([facility]) No date: Syncope 08/17/2004: Tubular adenoma of colon Comment: in 2005, 200812/06/2004: Tubular adenoma of rectum PAST SURGICAL HISTORY 2010: ; THYROIDECTOMY TOTAL OR COMPLETE 11/22/2005: COLONOSCOPY 12/15/2006: COLONOSCOPY 12/27/2011: COLONOSCOPY Comment: Normal - 5 yr follow up - prior polyps 2017: COLONOSCOPY Comment: by Dr Yoselin Sheikh 10/16/2018: COLONOSCOPY 11/22/2005: EGD WITH BIOPSY(S) 12/15/2006: EGD WITH BIOPSY(S) 11/28/2008: EGD WITH BIOPSY(S) Comment: GASTRIC POLYPS, SMALL HIATAL HERNIA 12/27/2011: EGD WITH BIOPSY(S) Comment: small to mod hiatal hernia, duodenitis - mild 10/25/2014: EGD WITH BIOPSY(S) Comment: small hiatal hernia, 10/16/2018: EGD WITH BIOPSY(S) Comment: small hiatal hernia; Dr. Royal 11/28/2008: F COLONOSCOPY WITH POLYPECTOMY Comment: SMALL POLYPS TRANSVERSE 11/04/2013: LAPAROSCOPY SURG CHOLECYSTECTOMY 2021: LAPS RPR PARAESPHGL HRNA INCL FUNDPLSTY W/MESH Comment: Kalyani Pimentel at [facility] 12/2007: LEFT HEART CATH,PERCUTANEOUS 04/15/2005: SPHINCTEROTOMY ANAL DIVISION SPHINCTER SPX Comment: For anal Fissures Social History Tobacco Use Smoking status: Never Smokeless tobacco: Never Substance Use Topics Alcohol use: No Drug use: No FAMILY HISTORY Problem Relation Age of Onset Diabetes Mother Hypertension Mother Stroke Father Heavy smoker ALLERGIES Allergen Reactions Contrast Dye Hives Levaquin [Levofloxa* Other: See Comments Abd pain Naproxen GI Upset Current Outpatient Medications Medication Sig MULTI-VITAMIN ORAL Take by mouth. levothyroxine (LEVOXYL) 75 mcg tablet Take 75 mcg by mouth once daily. atenolol 25 mg tablet Take 25 mg by mouth once daily. I tab in AM and 1/2 tab at night simvastatin 80 mg tablet Take 0.5 tablets by mouth once daily. Tizanidine HCl 4 mg capsule Take 1 capsule by mouth three times daily. warfarin (COUMADIN) 3 mg tablet once daily. omeprazole(PRILOSEC 40 MG CAP) Take one(1) capsule daily. sucralfate (CARAFATE) 1 gram tablet Take 1 tablet by mouth twice daily as needed. (Patient not taking: Reported on 01/07/2024) acetaminophen-hydrocodone 5-500 mg tablet Take 1 tablet by mouth every 4 hours as needed. No current facility-administered medications for this visit. REVIEW OF SYSTEMS PAIN ASSESSMENT: Negative for pain, history of chronic pain, or current treatment for a chronic pain condition. GENERAL: No weight loss, malaise or fevers NECK: Negative for lumps, goiter, pain and significant neck swelling RESPIRATORY: Negative for cough, hemoptysis, wheezing, COPD, dyspnea or shortness of breath CARDIOVASCULAR: Negative for chest pain, leg swelling, hypertension, CHF or palpitations GI: See HPI : No history of dysuria, frequency or incontinence MUSCULOSKELETAL: Negative for joint pain or swelling, back pain or muscle pain HEMATOLOGY/LYMPHOLOGY: Negative for prolonged bleeding, bruising easily or swollen nodes ENDOCRINE: Negative for cold or heat intolerance, polyuria, polydipsia and goiter PHYSICAL EXAM: BP 114/65 Pulse 73 Resp 18 Ht 4' 11 (1.50m) Wt 135 lb (61.2kg) BMI 27.25 kg/(m2). General Appearance: Well appearing, alert, in no acute distress, well-hydrated, well nourished.. Assessment: Gastroesophageal reflux disease without esophagitis (primary encounter diagnosis) Hiatal hernia Plan: ASSESSMENT/PLAN: 1. Gastroesophageal reflux diseas (more content not included)...[facility] History of Present illness Narrative* Luan Chapa MD - 01/07/2024 10:59 AM EDT Consultation requested by Dr. Alvarenga for an opinion regarding recurrent hiatal hernia. My final recommendations will be communicated back to the requesting physician by way of shared Medical record orletter to requesting physician via US mail. Anusha Vidal is a 73 year old White female who presents with complaints of GERD. Back in 2021 shehad a hiatal hernia repair with a toupet fundoplication. She most recently had an EGD which showed a recurrence. She also reports having an upper GI. She was placed on 40 mg of pantoprazole which shestates helps with her symptoms. Her symptoms consist of regurgitation and burning. She is on Coumadin for factor V Leiden deficiency. 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 No date: Bicuspid aortic valve No date: Blood dyscrasia No date: Chronic obstructive pulmonary disease (COPD) ([facility]) No date: Coronary artery disease No date: Duodenitis without mention of hemorrhage 12/2007: DVT (deep venous thrombosis) ([facility]) Comment: Right Lower leg 2010: DVT (deep venous thrombosis) ([facility]) No date: Factor V Leiden ([facility]) No date: Hiatal hernia Comment: small to mod 2010: Mini stroke 11/28/2008: Personal history of colonic polyps No date: Postmenopausal bleeding Comment: Postmenop. bleeding 11/04/2013: RUQ pain No date: Stroke ([facility]) No date: Syncope 08/17/2004: Tubular adenoma of colon Comment: in 2005, 200812/06/2004: Tubular adenoma of rectum PAST SURGICAL HISTORY 2010: ; THYROIDECTOMY TOTAL OR COMPLETE 11/22/2005: COLONOSCOPY 12/15/2006: COLONOSCOPY 12/27/2011: COLONOSCOPY Comment: Normal - 5 yr follow up - prior polyps 2017: COLONOSCOPY Comment: by Dr Yoselin Sheikh 10/16/2018: COLONOSCOPY 11/22/2005: EGD WITH BIOPSY(S) 12/15/2006: EGD WITH BIOPSY(S) 11/28/2008: EGD WITH BIOPSY(S) Comment: GASTRIC POLYPS, SMALL HIATAL HERNIA 12/27/2011: EGD WITH BIOPSY(S) Comment: small to mod hiatal hernia, duodenitis - mild 10/25/2014: EGD WITH BIOPSY(S) Comment: small hiatal hernia, 10/16/2018: EGD WITH BIOPSY(S) Comment: small hiatal hernia; Dr. Royal 11/28/2008: F COLONOSCOPY WITH POLYPECTOMY Comment: SMALL POLYPS TRANSVERSE 11/04/2013: LAPAROSCOPY SURG CHOLECYSTECTOMY 2021: LAPS RPR PARAESPHGL HRNA INCL FUNDPLSTY W/MESH Comment: Grabiel; Dr. Pimentel at [facility] 12/2007: LEFT HEART CATH,PERCUTANEOUS 04/15/2005: SPHINCTEROTOMY ANAL DIVISION SPHINCTER SPX Comment: For anal Fissures Social History Tobacco Use Smoking status: Never Smokeless tobacco: Never Substance Use Topics Alcohol use: No Drug use: No FAMILY HISTORY Problem Relation Age of Onset Diabetes Mother Hypertension Mother Stroke Father Heavy smoker ALLERGIES Allergen Reactions Contrast Dye Hives Levaquin [Levofloxa* Other: See Comments Abd pain Naproxen GI Upset Current Outpatient Medications Medication Sig MULTI-VITAMIN ORAL Take by mouth. levothyroxine (LEVOXYL) 75 mcg tablet Take 75 mcg by mouth once daily. atenolol 25 mg tablet Take 25 mg by mouth once daily. I tab in AM and 1/2 tab at night simvastatin 80 mg tablet Take 0.5 tablets by mouth once daily. Tizanidine HCl 4 mg capsule Take 1 capsule by mouth three times daily. warfarin (COUMADIN) 3 mg tablet once daily. omeprazole(PRILOSEC 40 MG CAP) Take one(1) capsule daily. sucralfate (CARAFATE) 1 gram tablet Take 1 tablet by mouth twice daily as needed. (Patient not taking: Reported on 01/07/2024) acetaminophen-hydrocodone 5-500 mg tablet Take 1 tablet by mouth every 4 hours as needed. No current facility-administered medications for this visit. REVIEW OF SYSTEMS PAIN ASSESSMENT: Negative for pain, history of chronic pain, or current treatment for a chronic pain condition. GENERAL: No weight loss, malaise or fevers NECK: Negative for lumps, goiter, pain and significant neck swelling RESPIRATORY: Negative for cough, hemoptysis, wheezing, COPD, dyspnea or shortness of breath CARDIOVASCULAR: Negative for chest pain, leg swelling, hypertension, CHF or palpitations GI: See HPI : No history of dysuria, frequency or incontinence MUSCULOSKELETAL: Negative for joint pain or swelling, back pain or muscle pain HEMATOLOGY/LYMPHOLOGY: Negative for prolonged bleeding, bruising easily or swollen nodes ENDOCRINE: Negative for cold or heat intolerance, polyuria, polydipsia and goiter PHYSICAL EXAM: BP 114/65 Pulse 73 Resp 18 Ht 4' 11 (1.50m) Wt 135 lb (61.2kg) BMI 27.25 kg/(m^2). General Appearance: Well appearing, alert, in no acute distress, well-hydrated, well nourished.. Assessment: Gastroesophageal reflux disease without esophagitis (primary encounter diagnosis) Hiatal hernia Plan: ASSESSMENT/PLAN: 1. Gastroesophageal reflux disease without esophagitis - ICD9: 530.81, ICD10: K21.9 (primary diagnosis) -Continue PPI. Referral made to one of our surgeons who performs recurrent Hatle hernia operations. - CONSULT TO GENERAL SURGERY 2. Hiatal hernia - ICD9: 553.3, ICD10: K44.9 - CONSULT TO GENERAL SURGERY Medical Decision Making: Problems: Moderate: New problem with uncertain prognosis Data: Unique source(s) for external note(s) reviewed: 1 Unique test result(s) reviewed: 1 Risk: Low: Low risk from testing/treatment Medical Decision Making Level: 3 - Low I spent 40 minutes in the visit, with more than 50% of the total ejxf-br-ddkk time of the visit in counseling / coordination of care. Luan Chapa M.D., F.A.C.S. documented in this encounterL[facility] Telephone encounter Note * Telephone Encounter - Emma Cardenas - 12/22/2023 1:36 PM EDT Referral received. Attempt # 1 SW patient - patient advised that they had made an appointment with Dr. Chapa. Patient advised they would call them to confirm the appointment and call us back. [facility] Miscellaneous Notes* Telephone Encounter - Emma Cardenas - 12/22/2023 1:36 PM EDT Referral received. Attempt # 1 SW patient - patient advised that they had made an appointment with Dr. Chapa. Patient advised they would call them to confirm the appointment and call us back. documented in this [facility] Hospital Discharge instructions Patient Education 05/15/2023 11:28:15 Laminectomy, Care After Laminectomy, Care After This sheet gives you information about how to care for yourself after your procedure. Your health care provider may also give you more specific instructions. If you have problems or questions, contact your health care provider. What can I expect after the procedure? After the procedure, it is common to have: Some pain around your incision area. Muscle tightening (spasms) across the back. Follow these instructions at home: Incision care Follow instructions from your health care provider about how to take care of your incision area. Make sure you: ?Wash your hands with soap and water before and after you apply medicine to the area or change yourbandage (dressing). If soap and water are not available, use hand machine heel seat fitter. ?Change your dressing as told by your health care provider. ?Leave stitches (sutures), skin glue, or adhesive strips in place. These skin closures may need to stay in place for 2 weeks or longer. If adhesive strip edges start to loosen and curl up, you may trim the loose edges. Do not remove adhesive strips completely unless your health care provider tells you to do that. Check your incision area every day for signs of infection. Check for: ?More redness, swelling, or pain. ?More fluid or blood. ?Warmth. ?Pus or a bad smell. Medicines Take evmu-yhh-mzljwcu and prescription medicines only as told by your health care provider. If you were prescribed an antibiotic medicine, use it as told by your health care provider. Do not stop using the antibiotic even if you start to feel better. Bathing Do not take baths, swim, or use a hot tub for 2 weeks, or until your incision has healed completely. If your health care provider approves, you may take showers after your dressing has been removed. Activity Return to your normal activities as told by your health care provider. Ask your health care provider what activities are safe for you. Avoid bending or twisting at your waist. Always bend at your knees. Do not sit for more than 20 30 minutes at a time. Lie down or walk between periods of sitting. Do not lift anything that is heavier than 10 lb (4.5 kg) or the limit that your health care provider tells you, until he or she says that it is safe. Do not drive for 2 weeks after your procedure or for as long as your health care provider tells you. Do not drive or use heavy machinery while taking prescription pain medicine. General instructions To prevent or treat constipation while you are taking prescription pain medicine, your health care provider may recommend that you: ?Drink enough fluid to keep your urine clear or pale yellow. ?Take ksyt-und-ajprmip or prescription medicines. ?Eat foods that are high in fiber, such as fresh fruits and vegetables, whole grains, and beans. ?Limit foods that are high in fat and processed sugars, such as fried and sweet foods. Do breathing exercises as told. Keep all follow-up visits as told by your health care provider. This is important. Contact a health care provider if: You have more redness, swelling, or pain around your incision area. Your incision feels warm to the touch. You are not able to return to activities or do exercises as told by your health care provider. Get help right away if: You have: ?More fluid or blood coming from your incision area. ?Pus or a bad smell coming from your incision area. ?Chills or a fever. ?Episodes of dizziness or fainting while standing. You develop a rash. You develop shortness of breath or you have difficulty breathing. You cannot control when you urinate or have a bowel movement. You become weak. You are not able to use your legs. Summary After the procedure, it is common to have some pain around your incision area. You may also have muscle tightening (spasms) across the back. Follow instructions from your health care provider about how to care for your incision. Do not lift anything that is heavier than 10 lb (4.5 kg) or the limit that your health care provider tells you, until he or she says that it is safe. Contact your health care provider if you have more redness, swelling, or pain around your incision area or if your incision feels warm to the touch. These can be signs of infection. This information is not intended to replace advice given to you by your health care provider. Make sure you discuss any questions you have with your health care provider. Document Released: 12/06/2005 Document Revised: 05/01/2018 Document Reviewed: 11/03/2016 [employer] Patient Education 2020 [employer]. Follow Up Care 05/02/2023 10:27:37 With:MARIO MENSAH DO, Orthopedic Address: [address] [place] [address], [address] [facility] [place] [address]- [phone] When:06/04/2023 11:00:00 Comments:This is your post-op appointment. Follow-up as scheduled. [facility] 12-14-2023 Note Discharge Instructions Thank you for allowing [facility] to assist you with your healthcare needs. The following is importantdischarge information regarding your hospital visit. Your Care Team ADELINA ALVARENGA JEFFERY KAPPER, LISA APRN Your Diagnosis Factor V Leiden GERD (gastroesophageal reflux disease) HTN (hypertension) Lumbar spondylosis What to do next Instructions From Your Doctor 1. During your procedure, you received sedation through your IV. Please follow these instructions for the next 24 hours: Do not drive a motor vehicle, do not drink any alcoholic beverages, do not sign any legal documents or make personal or business decisions. A responsible adult should stay with you at least 6 hours after the procedure. 2. Keep your surgical site/incision clean and the dressing dry and intact. Do not get the dressing wet. Cover your incisions with a waterproof dressing to shower. Do not use bathtubs, hot tubs, swimming pools etc. You may use an ice pack at the surgical site to reduce swelling or discomfort. 3. Monitor the incision for any signs or symptoms of infection. Watch for redness, excessive swelling or drainage, or continued pain at the incision site after 3 days. Contact your physician immediately for a fever, chills, or a temperature of 101.5 Fahrenheit or greater. #4 take your medication exactly as prescribed by your physician. Do not attempt to wean yourself off any of your medication even though your pain is improving. This process needs to be carefully monitored by your doctor. Take any antibiotics prescribed exactly as directed until they are gone. 5. Avoid stretching, bending, pulling, twisting or any sudden movements. Do not bend or twist at the waist. Do not raise your arms above your head. Do not lie on your stomach. 6. no lifting greater than 5 pounds. 7. Do not operate a motor vehicle, equipment or power tools while your stimulator is on. 8. Do not have any manipulation done by a chiropractor or any other physician without first consulting with the physician who placed your spinal cord stimulator. 9. Please call if you have any questions, problems, or concerns Follow Up Appointments Follow Up with MARIO MENSAH DO, Orthopedic When 06/04/2023 11:00 AM EST Why: This is your post-op appointment. Follow-up as scheduled. Where: [address] [place] [address], [address] [facility] [place] [address]- [phone] The Following Activity and Diet Have Been Ordered for You No qualifying data available. No qualifying data available. The Following Equipment Has Been Ordered for You No qualifying data available. Allergies Contrast dye (WELTS ON FACE) Levaquin (ABDOMINAL PAIN) naproxen (STOMACH PAIN) Immunizations This Visit Given Vaccine Dateinfluenza virus vaccine, inactivated 05/15/2023 Medications Please ask your primary doctor or pharmacist before taking any other medication not listed, including over the counter drugs, herbal medications, vitamins and or supplements as they may interact withyour home medications. What How Much When Instructions Last Dose Unchanged atenolol (atenolol 25 mg oral tablet) 1 tab(s) by mouth Two (2) times a day ONE TAB IN EVENING 1/ 2 TAB IN MORNING TODAY @ 9AM Unchanged calcium-vitamin D (Calcium Plus Vitamin D3 600 mg-12.5 mcg (500 intl units) oral capsule) 2 cap by mouth Once a day with food DID NOT TAKE Unchanged levothyroxine (levothyroxine 75 mcg (0.075 mg) oral tablet) 1 tab(s) by mouth Once a day 75MCG ON MON, WED, FRI, AND SUN 50MCG ON AND SAT TODAY @ 6AM Unchanged pantoprazole (pantoprazole 40 mg oral enteric coated tablet) 1 tab(s) by mouth Once a day TODAY @ 9AM Unchanged polyethylene glycol 3350 (MiraLax oral powder for reconstitution) 17 gram(s) by mouth Every day as needed for Constipation DID NOT TAKE Unchanged simvastatin (simvastatin 40 mg oral tablet) 1 tab(s) by mouth Daily at bedtime LAST NIGHT Unchanged tiZANidine (tiZANidine 4 mg oral tablet) 1 tab(s) by mouth Daily at bedtime LAST NIGHT What How Much When Comments Stop Taking warfarin (warfarin 3 mg oral tablet) 1 tab(s) by mouth Every day 3MG ON MON, WED, FRI, SAT 2MG ON TU, THURS, SUN Please take this list to your next doctor s visit. Bring all medications you take, including over the counter medications, herbals and other supplements with you to your doctor s visit. Patients and families are reminded to discard old lists and to update any records with all medication providers or retail pharmacies. Education Materials Laminectomy, Care After This sheet gives you information about how to care for yourself after your procedure. Your health care provider may also give you more specific instructions. If you have problems or questions, contact your health care provider. What can I expect after the procedure? After the procedure, it is common to have: Some pain around your incision area. Muscle tightening (spasms) across the back. Follow these instructions at home: Incision care Follow instructions from your health care provider about how to take care of your incision area. Make sure you: ? Wash your hands with soap and water before and after you apply medicine to the area or change your bandage (dressing). If soap and water are not available, use hand machine heel seat fitter. ? Change your dressing as told by your health care provider. ? Leave stitches (sutures), skin glue, or adhesive strips in place. These skin closures may need to stay in place for 2 weeks or longer. If adhesive strip edges start to loosen and curl up, you may trim the loose edges. Do not remove adhesive strips completely unless your health care provider tells you to do that. Check your incision area every day for signs of infection. Check for: ? More redness, swelling, or pain. ? More fluid or blood. ? Warmth. ? Pus or a bad smell. Medicines Take ahre-zir-meowgtn and prescription medicines only as told by your health care provider. If you were prescribed an antibiotic medicine, use it as told by your health care provider. Do not stop using the antibiotic even if you start to feel better. Bathing Do not take baths, swim, or use a hot tub for 2 weeks, or until your incision has healed completely. If your health care provider approves, you may take showers after your dressing has been removed. Activity Return to your normal activities as told by your health care provider. Ask your health care provider what activities are safe for you. Avoid bending or twisting at your waist. Always bend at your knees. Do not sit for more than 20 30 minutes at a time. Lie down or walk between periods of sitting. Do not lift anything that is heavier than 10 lb (4.5 kg) or the limit that your health care provider tells you, until he or she says that it is safe. Do not drive for 2 weeks after your procedure or for as long as your health care provider tells you. Do not drive or use heavy machinery while taking prescription pain medicine. General instructions To prevent or treat constipation while you are taking prescription pain medicine, your health care provider may recommend that you: ? Drink enough fluid to keep your urine clear or pale yellow. ? Take pcde-cmk-fnqhiet or prescription medicines. ? Eat foods that are high in fiber, such as fresh fruits and vegetables, whole grains, and beans. ? Limit foods that are high in fat and processed sugars, such as fried and sweet foods. Do breathing exercises as told. Keep all follow-up visits as told by your health care provider. This is important. Contact a health care provider if: You have more redness, swelling, or pain around your incision area. Your incision feels warm to the touch. You are not able to return to activities or do exercises as told by your health care provider. Get help right away if: You have: ? More fluid or blood coming from your incision area. ? Pus or a bad smell coming from your incision area. ? Chills or a fever. ? Episodes of dizziness or fainting while standing. You develop a rash. You develop shortness of breath or you have difficulty breathing. You cannot control when you urinate or have a bowel movement. You become weak. You are not able to use your legs. Summary After the procedure, it is common to have some pain around your incision area. You may also have muscle tightening (spasms) across the back. Follow instructions from your health care provider about how to care for your incision. Do not lift anything that is heavier than 10 lb (4.5 kg) or the limit that your health care provider tells you, until he or she says that it is safe. Contact your health care provider if you have more redness, swelling, or pain around your incision area or if your incision feels warm to the touch. These can be signs of infection. This information is not intended to replace advice given to you by your health care provider. Make sure you discuss any questions you have with your health care provider. Document Released: 12/06/2005 Document Revised: 05/01/2018 Document Reviewed: 11/03/2016 [employer] Patient Education 2020 [employer]. Additional Information VACCINATE! IT SAVES LIVES! Members of the community who have not yet received the COVID-19 vaccine and would like to receive it can visit one of [facility] vaccine clinics. There are many vaccine clinic locations within the [facility]. For locations and available times, please visit [email or web address] It is important to note that some COVID mobile vaccine clinics are held outdoors and may be canceled in rainy or stormy conditions. To learn more about pediatric vaccinations (ages 5-11), we invite you to visit the [facility] webpage. [email or web address]/[email or web address] learn more about the COVID-19 vaccine, we invite you to visit the CDC website for a list of frequently asked questions.https://www.cdc.gov/coronavirus/2019-ncov/vaccines/faq.html [facility] Patient Portal Access Instructions: Stay connected with your healthcare team and access your personal medical information anytime with the [facility] Patient Portal. Please follow the directions below to create your [facility] account: 1.Access the email account you provided upon registration to the hospital/physician office.2.Look for an invitation email from [facility].3.Open the email and access the invitation link: AcceptInvitation to [facility].4.Fill in the required keita to create your account. To access your account, visit [employer]. Click the blue button labeled Access Patient Portal and then log in with the username and password that you created in the steps above. You will be able to view your test results, lab results, a summary of your visits, upcoming appointments and more. There is also a convenient messaging option where you can send secure messages to your p kylevider. In addition, you will have the ability to download any documents or summaries to your computer and/or send the information securely to a physician. Remember that your healthcare information is confidential, so carefully consider who you will allowto register on the [place] [employer] Patient Portal for access to your information. You can also access the [facility] on the [place] [facility] malcom. Simply click on Patient Portal and then log into your account. If you would like to receive a full copy of your medical records, please contact the [facility] Medical Records Department by calling [phone], Friday through Friday between 8 a.m. and 4:30 p.m. HOW TO SAFELY DISPOSE OF PRESCRIPTION MEDICATIONS Please use one of the following methods to safely dispose of your unused medications. 1.Use a drug disposal kit: the drug disposal pouch allows you to safely discard your old and unuseddrugs. Ask your nurse to give you one when you are discharged.2.Visit a local take-back location: Many local pharmacies and police departments have programs that collect old and unwanted prescriptiondrugs. Call your local pharmacy or go to http://Tindie.LapSpace/3B3Rl7v to find one close to you.3.Make use of household items: Use cat litter or old coffee grounds to dispose medications if other options arenot available. Mix your drugs with these household products, seal them in an airtight container andthrow it into the garbage. Call [facility]: [phone] to be sure your drugs can be disposed of in this way. Some medicines may require a different approach.4.Never flush your medications down the toilet. IF YOU HAVE BEEN PRESCRIBED AN OPIOID FOR PAIN If you have been prescribed an opioid (such as hydrocodone, oxycodone or morphine), it is critical to understand the possible side effects and risks of opioid pain medications. Even when taken as directed, opioids can have several side effects including: Tolerance, meaning you might need to take more of a medication for the same pain relief. Nausea, vomiting and/or constipation. Sleepiness, dizziness, dry mouth, confusion, depression or itching. Physical dependence, meaning you have withdrawal symptoms when a medication is stopped, can develop within a few days. KNOW YOUR RESPONSIBILITIES It is important to know exactly how much and how often to take the opioid pain medications you are prescribed. Never take opioids in higher amounts or more often than prescribed. Do not combine opioids with alcohol or other drugs that cause drowsiness, such as benzodiazepines, also known as benzos, including diazepam and alprazolam, muscle relaxants or sleep aids. Never sell or share prescription opioids. This is illegal. Store opioids in a secure place and out of reach of others (including children, family, friends and visitors). The last page of this document has been signed and retained as a CHART COPY. Signatures Patient Education Materials Laminectomy, Care After Medication Leaflets My discharge plan and instructions have been reviewed and explained to me and I,ANUSHA VIDAL understand my current condition and have read and understand these discharge instructions. I have received a written copy of the plan/instructions. If I have questions, I am aware that I should contact my doctor. Patient/Medical Claims Specialist Signature: Date/Time: Relationship to Patient: Witness Name/Signature: Date/Time: [facility]12-14-2023 Note Date of Service 05/15/2023 Chief Complaint incisional pain Subjective Patient seen and evaluated this morning while resting in bed. She states that she is doing well this morning and denies any complaints other than incisional pain. She does feel that her pain is controlled on oral medications. She is on room air this morning and denies any cough or shortness of breath. She is tolerating a diet without any nausea. She has been able to empty her bladder and reports that she is passing gas. She further denies any fever, chills, cough, chest pain, abdominal pain, nausea or dysuria. Physical exam unremarkable. Labs and vital signs reviewed and stable. From hospitalist perspective, patient is medically optimized for discharge home today. Will defer to primary teamto make the final decision to discharge. All questions answered. Objective Vitals and Measurements T: 36.6 C (Oral) TMIN: 35.9 C (Temporal Artery) TMAX: 36.6 C (Oral) HR: 63(Monitored) RR: 18 BP: 93/76 SpO2: 96% HT: 127.0 cm WT: 57.53 kg BMI: 35.67 Intake and Output 7AM Yesterday to 7AM Today Intake and Output (Last 24 hours) Intake Administration Information 743.99 Oral Intake 60.00 Output Emesis 0.00 Intra-Op EBL 5.00 Stool Count 0.00 Urine Count 1.00 Total Summary Total Intake 803.99 Total Output 5.00 Fluid Balance 798.99 Physical Exam General: No acute distress. Patient is alert and appropriate. Skin: No rash. Skin is warm, dry and intact. HEENT: Head is normocephalic, atraumatic. Pupils are equal, round and reactive. Neck: Supple. No lymphadenopathy, thyromegaly. Lungs: Bilaterally clear but diminished without crepitation or wheeze. Unlabored. Heart: Heart is regular rhythm, S1, S2. No murmurs, gallops or rubs. Abdomen: Abdomen is soft, nontender. Bowels sounds present in all quadrants. Extremities: No clubbing, cyanosis, or edema. Peripheral pulses palpable. No calf tenderness. Neurological: Patient is awake and alert to person, place and time. Following simple commands, moving all extremities. Weight Dosing Weight: 57.53 kg (05/14/23) Dosing Weight: 57.53 kg (05/14/23) Medications Medications (24) Active Scheduled: (14) atenolol 25 mg Tablet 25 mg 1 tab(s), Oral, qPM atenolol 25 mg Tablet 12.5 mg 0.5 tab(s), Oral, qAM atorvastatin 10 mg tablet 20 mg 2 tab(s), Oral, qHS bisacodyl 5 mg EC tablet 10 mg 2 tab(s), Oral, Once calcium-vitamin D 500 mg-200 units tablet 1 tab(s), Oral, qDay docusate sodium 100 mg Capsule 100 mg 1 cap(s), Oral, BID docusate-senna (Senokot S) 50 mg-8.6 mg Tablet 2 tab(s), Oral, BID famotidine 20 mg tablet 20 mg 1 tab(s), Oral, qDay influenza virus vaccine, inactivated adjuvanted preservative-free quadrivalent Susp (Fluad) 0.5 mL,Intramuscular, Vaccine-day 2 levothyroxine 50 mcg tablet 50 mcg 1 tab(s), Oral, //Fri levothyroxine 75 mcg tablet 75 mcg 1 tab(s), Oral, Fri/Fri/Fri/Fri magnesium hydroxide 8% Suspension 30 mL UD 30 mL, Oral, Daily pantoprazole 20 mg EC tablet 40 mg 2 tab(s), Oral, qDay tiZANidine 4 mg tablet 4 mg 1 tab(s), Oral, qHS Continuous: (1) NS (0.9% nacl) 1,000 mL 1,000 mL, Intravenous, 100 mL/hr PRN: (9) acetaminophen 325 mg Tablet 650 mg 2 tab(s), Oral, q4h acetaminophen-HYDROcodone 325-5 mg tablet 1 tab(s), Oral, q4h diphenhydramine 25 mg tablet 25 mg 1 tab(s), Oral, q6h diphenhyDRAMINE 50 mg/mL (1 mL) INJ 25 mg 0.5 mL, IV Push, q6h morphine 4 mg/mL 1mL INJ 4 mg 1 mL, IV Push, q4h ondansetron 2 mg/ 1 mL 2 mL INJ 4 mg 2 mL, IV Push, q8h polyethylene glycol 3350 - UD packet 17 gram(s) 15 mL, Oral, Daily scopolamine 1.5 mg (1 mg / 72 hours patch) 1 patch(es), Transdermal, q72h sodium biphosphate-sodium phosphate 19 gm-7 gm Enema 133 mL, Rectal, qDay Lab Results 05/15 05:39 WBC: 7.6 Hgb: 11.5 L Hct: 34.4 L Platelet: 198 Neutrophil %: 78.4 Glucose Level: 90 Sodium Level: 144 Potassium Level: 5.0 BUN: 11 Creatinine Lvl (s): 0.72 05/14 08:55 Protime: 12.6 PT International Ratio: 1.1 EKG No qualifying data available. Assessment/Plan 1. Lumbar spondylosis Chronic, s/p lumbar laminectomy and spinal cord stimulator placement. POD #1. Management per primary team. Pain well-controlled on oral medications. 2. HTN (hypertension) Chronic, controlled. Continue home antihypertensives with parameters. SBP goal of 140 or less. 3. Factor V Leiden Chronic, anticoagulated with warfarin. Resume per primary team recommendations. 4. GERD (gastroesophageal reflux disease) Chronic, controlled. Continue home medications. Patient seen and evaluated this morning while resting in bed. Physical exam was unremarkable. Lab results and vital signs trends reviewed and were stable. From hospitalist perspective, patient is medically optimized for discharge home today. Hospitalist service will sign-off at this time. Please feel free to re- consult service if there are any changes in condition. Thank you for including hospitalist service in the care of your patient! DVT prophylaxis with SCDs. Code status: Full Code. Labs, diagnostic test and progress notes reviewed as noted in HPI. Plan of care discussed with patient. All questions answered. Patient verbalizes understanding and is agreeable with plan of care. This case was discussed with collaborating physician, Dr. Efraín Dimas. Time Spent 35 minutes spent reviewing past diagnostic tests, reviewing lab results, vital sign trends, medicalhistory, reviewing medications and ordering home medications, examining patient, discussed plan of care with nursing, social worker delinquency prevention and therapy, collaborating with physician, and documenting in chart. Digitally Signed by ADELINA HERRERA on 05/15/2023 11:07 AM [facility]12-13-2023 Note ORIGINAL Images acquired, not reported on this accession number.[facility]12-13-2023 Note Date of Service 05/14/2023 Chief Complaint Status post implantation of spinal cord stimulator Subjective Seen and examined postop. Lying in bed resting comfortably. Pain controlled. No complaints Objective Vitals and Measurements T: 36.5 C (Temporal Artery) HR: 59 RR: 15 BP: 101/87 SpO2: 100% HT: 127.0 cm WT: 57.53 kg Intake and Output 7AM Yesterday to 7AM Today Intake and Output (Last 24 hours) Intake Output Total Summary Total Intake 0.00 Total Output 0.00 Fluid Balance 0.00 Physical Exam A&O, NAD NCAT, EOMI Regular rate and rhythm Clear to auscultation bilaterally abdomen soft and nontender Dressings clean dry and intact Extremities: Sensation and motor intact grossly without focal deficit. Pulses and reflexes are normal and symmetric Weight Dosing Weight: 57.53 kg (05/14/23) Medications Medications (2) Active Scheduled: (1) ceFAZolin 2 gram(s), IV Piggyback, PREOP pharm Continuous: (1) NS (0.9% nacl) 1,000 mL 1,000 mL, Intravenous, 20 mL/hr PRN: (0) Lab Results 05/14 08:55 Protime: 12.6 PT International Ratio: 1.1 EKG No qualifying data available. Assessment/Plan Orders: Sodium Chloride 0.9% intravenous solution 1,000 mL, Start: 05/14/23 9:20:00 EST, Rate: 20 mL/hr, 05/14/23 9:20:00 EST Communication Order (scheduled) IV Catheter Insertion/Care NPO Sign Consent Vital Signs Okay to admit to floor See orders Discharge planning, likely home tomorrow Digitally Signed by MARIO MENSAH DO on 05/14/2023 01:58 PM [facility]12-13-2023 Anesthesiology Consult note Patient: ANUSHA VIDAL Age: 73 years Sex: Female : 1950 Associated Diagnoses: None Author: TORI CONN Preoperative Information Anesthesia history Patient's history: negative. Family's history: negative. Health Status Allergies: Allergic Reactions (Selected) Severity Not Documented Contrast dye- Welts on face. Levaquin- Abdominal pain. Naproxen- Stomach pain., Allergies (3) ActiveReaction Contrast dyeWELTS ON FACE LevaquinABDOMINAL PAIN naproxenSTOMACH PAIN Current medications: (Selected) Inpatient Medications Ordered ceFAZolin: 2 gram(s), 200 mL/hr, IV Piggyback, PREOP pharm Documented Medications Documented Calcium Plus Vitamin D3 600 mg-12.5 mcg (500 intl units) oral capsule: 2 cap(s), Oral, qDay, with food, 120 EA, 0 Refill(s) MiraLax oral powder for reconstitution: 17 gram(s), Oral, Daily, PRN: Constipation, 510 gram(s), 0 Refill(s) atenolol 25 mg oral tablet: 25 mg, 1 tab(s), Oral, BID, ONE TAB IN EVENING 1/2 TAB IN MORNING, 180 tab(s), 0 Refill(s) levothyroxine 75 mcg (0.075 mg) oral tablet: 75 mcg, 1 tab(s), Oral, qDay, 75MCG ON FRI, FRI, FRI, AND SUN 50MCG ON AND SAT, 30 tab(s), 0 Refill(s) pantoprazole 40 mg oral enteric coated tablet: 40 mg, 1 tab(s), Oral, qDay, 30 tab(s), 0 Refill(s) simvastatin 40 mg oral tablet: 40 mg, 1 tab(s), Oral, qHS, 100 tab(s), 0 Refill(s) tiZANidine 4 mg oral tablet: 4 mg, 1 tab(s), Oral, qHS, 90 tab(s), 0 Refill(s) warfarin 3 mg oral tablet: 3 mg, 1 tab(s), Oral, Daily, 3MG ON FRI, FRI, FRI, SAT 2MG ON , , SUN, 0 Refill(s), Medications (1) Active Scheduled: (1) ceFAZolin 2 gram(s), IV Piggyback, PREOP pharm Continuous: (0) PRN: (0) Problem list: Active Problems (6) Factor V Leiden GERD (gastroesophageal reflux disease) Heart murmur HTN (hypertension) Osteoarthritis TIA (transient ischemic attack) Histories Past Medical History: No active or resolved past medical history items have been selected or recorded. Family History: Hypertension Mother Stroke Father Diabetes Mother Procedure history: Thyroidectomy (46573346). Carpal tunnel (477610594). Comments: 05/06/2023 13:02 Maddie Schafer RN BILATERAL Cholecystectomy ([id number]). Thumb joint structure ([id number]). Comments: 05/06/2023 13:03 Maddie Schafer RN BILATERAL Hiatal hernia ([id number]). Fracture ([id number]). Comments: 05/14/2023 8:45 Evelia Soni RN fracture of the back procedure Colonoscopy ([id number]). Social History Social & Psychosocial Habits Alcohol 05/14/2023 Use: Never Substance Abuse 05/14/2023 Use: Never Tobacco 05/14/2023 Tobacco Use: Never (less than 100 in l Home/Environment 05/14/2023 Domestic Concerns None Nutrition/Health 05/14/2023 Type of diet: Regular Caffeine intake amount: diet pepsi and diet dr amaya. 12 oz daily Appetite Fair Eating Difficulties None . Physical Examination Vital Signs 05/14/2023 8:53 EST Temperature Temporal Artery 36.5 DegC Peripheral Pulse Rate 59 bpm LOW Respiratory Rate 15 br/min Systolic Blood Pressure Non-Invasive 116 mmHg Diastolic Blood Pressure Non-Invasive 97 mmHg HI Vital Signs(last 24 hrs) Last Charted Resp Rate 15 br/min (MAY 14 08:53) YXX042 mmHg (MAY 14 08:53) DBPH 97mmHg (MAY 14:53) General: Alert and oriented, Mild distress. Airway: Normal temporomandibular joint mobility. Mallampati classification: II (soft palate, fauces, uvula visible). Dentition Evaluation: Denies loose/chipped teeth. Respiratory: Lungs are clear to auscultation, Respirations are non-labored. Cardiovascular: Normal rate, Regular rhythm. Neurologic: Alert, Oriented. Review / Management Results review: No qualifying data available , Lab results 05/14/2023 8:53 EST Temperature Temporal Artery 36.5 DegC Peripheral Pulse Rate 59 bpm LOW Respiratory Rate 15 br/min Systolic Blood Pressure Non-Invasive 116 mmHg Diastolic Blood Pressure Non-Invasive 97 mmHg HI Oxygen Therapy Room air Oxygen Saturation 100 % 05/14/2023 8:49 EST Designated Person #1 We May Share WIN VIDAL [phone] Designated Person #1 Relationship Spouse Privacy Restrictions Requested None Status N/A Sensory Deficits None Sleep Apnea Snore No Sleep Apnea Tired Yes Sleep Apnea Obstruction No Sleep Apnea Pressure Yes Sleep Apnea BMI No Sleep Apnea Age Yes Sleep Apnea Neck No Sleep Apnea Gender No Sleep Apnea Score 3 Diagnosed With Sleep Apnea No Advanced Directives Yes Advance Directive Type [place] Durable Power of [employer] Supervisor for [facility], [place] Declaration (Living Will) Advance Directive Location Family instructed to bring in copy Infectious Disease Symptoms Patient states no symptoms Infectious Disease Recent Exposure No Alcohol and Drug Use No Employee of Institutional Living No Health Care Employee No History of Exposure to TB No History of Positive Chest X-Ray for TB No History of Positive TB Skin Test No Homeless No Known Immunosuppression No Recent Immigrant No Resident of Institutional Living No Bloody Sputum No Fatigue No Fever No Loss of Appetite No Night Sweats No Persistent Cough > 3 Weeks No Weight Loss No Patient Aware Date/Time Of Surgery Yes Previous Surgery At This Facility No Pre-Op Patient Education NPO after midnight, No makeup, No jewelry, Responsible Green Party, Aware of surgery location, Pre-op education done, 1 bottle CHG wash with instructions given, Instructed to take ordered medications, SSI prevention handout given SN - Preprocedure Comments Spoke with patient, Verbalizes/Nonverbally indicates understanding, Other: PANTOPRAZOLE, ATENOLOL, LEVOTHYROXINE Barriers to Learning None evident Teaching Method Explanation Preferred Spoken Language Citizen Of [place] Preferred Written Language Citizen [place] Safety Brochure Information Reviewed Unable to complete [place] [employer] Video Viewed No Information Given by Patient Patient's Current Physicians Patient's Current Physicians Discharge To, Anticipated Home independently Prev Test Positive/Diagnosis w/COVID-19 Yes Previous COVID-19 Positive 2019 Current Quarantine/Isolated any Illness No Any Contact with Sick Animals/Birds No Traveled Anywhere in Last 30 Days No Lost Weight Unintentionally Recently No Eat Poorly Due to Decreased Appetite No Total MST Score 0 N/A Personal Devices, Patient Valuables Glasses Anesthesia/Transfusions Prior anesthesia Admission Note-Nursing Same Day Patient History 05/14/2023 8:33 EST SN - Preop - CTm Pt in SDS Room 05/14/2023 8:33 . Assessment and Plan [place] [employer] of Anesthesiologists (ASA) physical status classification: Class III. Anesthetic Preoperative Plan Anesthetic technique: General. Maintenance airway: Oral endotracheal tube. Postoperative pain management: Per surgeon. Risks discussed: nausea, vomiting, sore throat, dental injury, hypotension, allergic reaction, serious complications. Informed consent: signed by patient. Digitally Signed by TORI CONN on 05/14/2023 09:00 AM [facility]04-06-2022 Chief complaint+Reason for visit Narrative* Chief Complaint LAP HIATAL HERNIA RE P WITH TOUPET PROCEDURE LAP HIATAL HERNIA REP WITH TOUPET PROCEDURE LAP HIATAL HERNIA REP WITH TOUPET PROCEDURE LAP HIATAL HERNIA REP WITH TOUPET PROCEDURE 1 WEEK FUP LAP HIATAL HERNIA 09/05/2021 S/O 8 WK FU 1 Y FU S/O S/O plus add'l order dr alvarenga 12/24/21 HEADACHES, DIZZYNESS, RECENT FALL Reason for Visit GERD (gastroesophage al reflux disease) Large hiatal hernia Large hiatal hernia Abdominal pain Dumping syndrome GERD (gastroesophageal reflux disease) History of fundoplication Atherosclerotic heart disease of [place] coronary artery without angina pectoris Atypical chest pain Bicuspid aortic valve Essential (primary) hypertension Palpitations Pure hypercholesterolemia [facility] Work Phone: [phone]) 897-640704-06-2022 Chief complaint+Reason for visit Narrative * Chief Complaint LAP HIATAL HERNIA RE P WITH TOUPET PROCEDURE 1 WEEK FUP LAP HIATAL HERNIA 09/05/2021 S/O 8 WK FU 1 Y FU S/O S/O plus add'l order dr alvarenga 12/24/21 HEADACHES, DIZZYNESS, RECENT FALL Reason for Visit Large hiatal hernia Abdominal pain Dumping syndrome GERD (gastroesophageal reflux disease) History of fundoplication Atherosclerotic heart disease of [place] coronary artery without angina pectoris Atypical chest pain Bicuspid aortic valve Essential (primary) hypertension Palpitations Pure hypercholesterolemia [facility] Work Phone: Evaluation + Plan note Future Appointments [facility] Evaluation note* Diagnosis Onset Date Resolution Status Abdominal pain acute GERD (gastroesophageal reflux disease) acute Large hiatal hernia acute Abdominal pain acute GERD (gastroesophageal reflux disease) acute Large hiatal hernia acute GERD (gastroesophageal reflux disease) acute Large hiatal hernia acute [facility] Work Phone: Evaluation note* Diagnosis Onset Date Resolution Status Abdominal pain acute GERD (gastroesophageal reflux disease) acute Large hiatal hernia acute Abdominal pain acute GERD (gastroesophageal reflux disease) acute Large hiatal hernia acute GERD (gastroesophageal reflux disease) acute Large hiatal hernia acute GERD (gastroesophageal reflux disease) acute Large hiatal hernia acute [facility] Work Phone: Evaluation note* Diagnosis Onset Date Resolution Status Abdominal pain acute GERD (gastroesophageal reflux disease) acute Large hiatal hernia resolved Abdominal pain acute GERD (gastroesophageal reflux disease) acute Large hiatal hernia resolved GERD (gastroesophageal reflux disease) acute Large hiatal hernia resolved GERD (gastroesophageal reflux disease) acute Large hiatal hernia resolved Large hiatal hernia resolved [facility] Work Phone: Evaluation note* Diagnosis Onset Date Resolution Status Abdominal pain acute GERD (gastroesophageal reflux disease) acute Large hiatal hernia resolved GERD (gastroesophageal reflux disease) acute Large hiatal hernia resolved GERD (gastroesophageal reflux disease) acute Large hiatal hernia resolved Large hiatal hernia resolved Abdominal pain acute Dumping syndrome acute GERD (gastroesophageal reflux disease) acute History [place] fundoplication [place] Atherosclerotic heart diseas e of [place] coronary artery without angina pectoris chronic Atypical chest pain chronic Bicuspid aortic valve chroni c Essential (primary) hypertension chronic Palpitations chronic Pure hypercholesterolemia [facility] Work Phone: Evaluation note* Diagnosis Onset Date Resolution Status GERD (gastroesophageal reflux disease) acute Large hiatal hernia resolved Large hiatal hernia resolved Abdominal pain acute Dumping syndrome acute GERD (gastroesophageal reflux disease) acute History of fundoplication [facility] Atherosclerotic heart diseas e of [place] coronary artery without angina pectoris chronic Atypical chest pain chronic Bicuspid aortic valve chroni c Essential (primary) hypertension chronic Palpitations chronic Pure hypercholesterolemia [facility] Work Phone: Evaluation note* Diagnosis Onset Date Resolution Status Large hiatal hernia resolved Abdominal pain acute Dumping syndrome acute GERD (gastroesophageal reflux disease) acute History of fundoplication [facility] Atherosclerotic heart diseas e of [place] coronary artery without angina pectoris chronic Atypical chest pain chronic Bicuspid aortic valve chroni c Essential (primary) hypertension chronic Palpitations chronic Pure hypercholesterolemia [facility] Work Phone: Evaluation note* Diagnosis Onset Date Resolution Status Abdominal pain acute Dumping syndrome acute GERD (gastroesophageal reflux disease) acute History of fundoplication [facility] Atherosclerotic heart diseas e of [place] coronary artery without angina pectoris chronic Atypical chest pain chronic Bicuspid aortic valve chroni c Essential (primary) hypertension chronic Palpitations chronic Pure hypercholesterolemia [facility] Dumping syndrome acute GERD (gastroesophageal reflux disease) acute History of fundoplication [facility] Work Phone: Evaluation note* Diagnosis Onset Date Resolution Status Dumping syndrome acute GERD (gastroesophageal reflux disease) acute History of fundoplication [facility] Work Phone: Evaluation note* Diagnosis Onset Date Resolution Status Dumping syndrome chronic GERD (gastroesophageal reflux disease) chronic History of fundoplication [facility] Dysphagia acute Dumping syndrome chronic GERD (gastroesophageal reflux disease) chronic History of fundoplication [facility] Work Phone: Evaluation note* Diagnosis Onset Date Resolution Status Dysphagia acute Dumping syndrome chronic GERD (gastroesophageal reflux disease) chronic History of fundoplication [facility] Work Phone: Evaluation note* Diagnosis Onset Date Resolution Status Dumping syndrome chronic Esophageal spasm chronic GERD (gastroesophageal reflux disease) chronic History of fundoplication [facility] Work Phone: Evaluation note* Diagnosis Onset Date Resolution Status Abdominal pain acute Change in bowel habit chroni c Dumping syndrome chronic Esophageal spasm chronic GERD (gastroesophageal reflux disease) chronic History of fundoplication [facility] Work Phone: Evaluation note* Diagnosis Onset Date Resolution Status Abdominal pain acute Change in bowel habit chroni c Dumping syndrome chronic Esophageal spasm chronic GERD (gastroesophageal reflux disease) chronic History of fundoplication [facility] Atherosclerotic heart diseas e of [place] coronary artery without angina pectoris chronic Bicuspid aortic valve chroni c Essential (primary) hypertension chronic Pure hypercholesterolemia [facility] Work Phone: Evaluation note* Diagnosis Onset Date Resolution Status Atherosclerotic heart diseas e of [place] coronary artery without angina pectoris chronic Bicuspid aortic valve chroni c Essential (primary) hypertension chronic Pure hypercholesterolemia [facility] Work Phone: Evaluation note* Diagnosis Onset Date Resolution Status Atherosclerotic heart diseas e of [place] coronary artery without angina pectoris chronic Bicuspid aortic valve chroni c Essential (primary) hypertension chronic Factor V deficiency chronic Pure hypercholesterolemia [facility] Work Phone: Evaluation note* Diagnosis Gastroesophageal reflux disease without esophagitis- Primary Esophageal reflux Hiatal hernia Diaphragmatic hernia without mention of obstruction or gangrene [facility] Diagnosis Paraesophageal hernia- Primary Diaphragmatic hernia without mention of obstruction or gangrene Gastroesophageal reflux disease without esophagitis Esophageal reflux [facility] Diagnosis Pre-op examination- Primary Preoperative examination, unspecified Paraesophageal hernia Diaphragmatic hernia without mention of obstruction or gangrene Pre-op examination Preoperative examination, unspecified Cerebrovascular accident (CVA), unspecified mechanism (HCC) Factor V Leiden (HCC) Primary hypercoagulable state Deep vein thrombosis (DVT) of lower extremity, unspecified chronicity, unspecified laterality, unspecified vein (HCC) Postoperative hypothyroidism Postsurgical hypothyroidism Gastroesophageal reflux disease without esophagitis Esophageal reflux Primary hypertension Unspecified essential hypertension Mixed hyperlipidemia Gastroesophageal reflux disease without esophagitis Esophageal reflux Stroke (HCC) Unspecified cerebral artery occlusion with cerebral infarction Factor V Leiden (HCC) Primary hypercoagulable state DVT (deep venous thrombosis) (HCC) Acute venous embolism and thrombosis of unspecified deep vessels of lower extremity Postoperative hypothyroidism Postsurgical hypothyroidism Primary hypertension Unspecified essential hypertension Mixed hyperlipidemia * Assessment & Plan Note - Fatou Grove APRN.CNP - 02/11/2024 2:31 PM EDT Associated Problem(s): Mixed hyperlipidemia Simvastatin- last dose taken yesterday. Continue as prescribed. * Assessment & Plan Note - Fatou Grove APRN.CNP - 02/11/2024 2:31 PM EDT Associated Problem(s): Primary hypertension Atenolol- last dose taken today. Continue as prescribed. * Assessment & Plan Note - Fatou Grove APRN.CNP - 02/11/2024 2:29 PM EDT Associated Problem(s): Postoperative hypothyroidism Levothyroxine- last dose taken today. Continue as prescribed. * Assessment & Plan Note - Fatou Grove APRN.CNP - 02/11/2024 2:29 PM EDT Associated Problem(s): Paraesophageal hernia EGD today. * Assessment & Plan Note - Fatou Grove APRN.CNP - 02/11/2024 2:29 PM EDT Associated Problem(s): Gastroesophageal reflux disease without esophagitis Omeprazole- last dose taken 02/05/24. EGD today. * Assessment & Plan Note - Fatou Grove APRN.CNP - 02/11/2024 2:28 PM EDT Associated Problem(s): Factor V Leiden (HCC) Diagnosed after previous DVT's. Does not follow with hematology. * Assessment & Plan Note - Fatou Grove APRN.CNP - 02/11/2024 2:28 PM EDT Associated Problem(s): DVT (deep venous thrombosis) (HCC) Occurred in 2007 and 2010. Coumadin- last dose taken 02/05/24. * Assessment & Plan Note - Fatou Grove APRN.CNP - 02/11/2024 2:27 PM EDT Associated Problem(s): Stroke (HCC) Patient states mini stroke many years ago. Denies any residual deficits. * Assessment & Plan Note - Fatou Grove APRN.CNP - 02/11/2024 2:23 PM EDT Associated Problem(s): Pre-op examination see note for medical conditions which may affect tete-operative course that were addressed at today's visit. documented in this encounter [facility] note* Diagnosis Pre-op examination- Primary Preoperative examination, unspecified Paraesophageal hernia Diaphragmatic hernia without mention of obstruction or gangrene Pre-op examination Preoperative examination, unspecified Cerebrovascular accident (CVA), unspecified mechanism ([facility]) Factor V Leiden ([facility]) Primary hypercoagulable state Deep vein thrombosis (DVT) of lower extremity, unspecified chronicity, unspecified laterality, unspecified vein ([facility]) Postoperative hypothyroidism Postsurgical hypothyroidism Gastroesophageal reflux disease without esophagitis Esophageal reflux Primary hypertension Unspecified essential hypertension Mixed hyperlipidemia Gastroesophageal reflux disease without esophagitis Esophageal reflux Stroke ([facility]) Unspecified cerebral artery occlusion with cerebral infarction Factor V Leiden ([facility]) Primary hypercoagulable state DVT (deep venous thrombosis) ([facility]) Acute venous embolism and thrombosis of unspecified deep vessels of lower extremity Postoperative hypothyroidism Postsurgical hypothyroidism Primary hypertension Unspecified essential hypertension Mixed hyperlipidemia Paraesophageal hernia- Primary Diaphragmatic hernia without mention of obstruction or gangrene Gastroesophageal reflux disease with esophagitis without hemorrhage documented in this encounter [facility] note* Diagnosis Gastroesophageal reflux disease with esophagitis without hemorrhage- Primary [facility] Gastroesophageal reflux disease with esophagitis without hemorrhage [facility] Diagnosis Gastroesophageal reflux disease with esophagitis without hemorrhage- Primary Paraesophageal hernia Diaphragmatic hernia without mention of obstruction or gangrene [facility] Diagnosis Preop exam for internal medicine- Primary Other specified pre-operative examination Gastroesophageal reflux disease with esophagitis without hemorrhage Paraesophageal hernia Diaphragmatic hernia without mention of obstruction or gangrene Factor V Leiden Primary hypercoagulable state Bicuspid aortic valve Congenital insufficiency of aortic valve Essential hypertension Unspecified essential hypertension Mixed hyperlipidemia History of TIA (transient ischemic attack) Transient ischemic attack (TIA), and cerebral infarction without residual deficits Postoperative hypothyroidism Postsurgical hypothyroidism Paraesophageal hernia Diaphragmatic hernia without mention of obstruction or gangrene [facility] Diagnosis Paraesophageal hernia- Primary Diaphragmatic hernia without mention of obstruction or gangrene Gastroesophageal reflux disease with esophagitis without hemorrhage Status post repair of paraesophageal diaphragmatic hernia Other postprocedural status Postoperative pain Other acute postoperative pain [facility] Diagnosis S/P laparoscopic fundoplication- Primary Other postprocedural status [facility] Diagnosis Gastroesophageal reflux disease with esophagitis without hemorrhage- Primary [facility] Narrative No data available for this section [facility] Hospital Discharge instructions Additional Instructions Take Tylenol and use ice, if not improving please follow-up with your orthopedic doctor.[facility] Work Phone: Hospital Discharge instructions No data available for this section [facility] Progress note No data available for this section [facility] Reason for referral (narrative)* Outpatient Procedure (Routine) - Authorized Specialty Diagnoses / Procedures Referred By Leona forrest Referred To Contact [facility] Diagnoses Paraesophageal hernia Procedures EGD - THERAPEUTIC, EUS, OR TUBE INTERVENTIONS ESOPHAGOGASTRODUODENOSC OPY TRANSORAL DIAGNOSTIC Agatha Bernabe MD [address] [address] [facility] [address] [place] [address] Referral ID Status Reason Start Date Expiration Date Visits Requested Visits Authorized [id number] Authorized Auto-Generat ed Referral 02/11/2024 01/13/2025 1 1 [facility] for referral (narrative)* Outpatient Procedure (Routine) - Closed Specialty Diagnoses / Procedures Referred By Leona forrest Referred To Contact [facility] Diagnoses Paraesophageal hernia Procedures EGD - THERAPEUTIC, EUS, OR TUBE INTERVENTIONS ESOPHAGOGASTRODUODENOSC OPY TRANSORAL DIAGNOSTIC Agatha Bernabe MD 1 [employer] [facility] [employer] [address] [address] [facility] [address] [place] [address] Referral ID Status Reason Start Date Expiration Date V isits Requested Visits Authorized [id number] Closed Auto-Generate d Referral 02/11/2024 01/13/2025 1 1 [facility] for referral (narrative)* Consultation (Routine) - New Request Specialty Diagnoses / Procedures Referred By Leona forrest Referred To Contact Anesthesiology Diagnoses Gastroesophageal reflux disease with esophagitis without hemorrhage Wesley Bui MD [address] [phone] Referral ID Status Reason Start Date Expiration Date V isits Requested Visits Authorized [id number] New Request 05/14/2024 06/08/2025 1 1 * Consultation (Routine) - New Request Specialty Diagnoses / Procedures Referred By Leona forrest Referred To Contact Nutrition and Dietetics Diagnoses Gastroesophageal reflux disease with esophagitis without hemorrhage Wesley Bui MD [address] [phone] Referral ID Status Reason Start Date Expiration Date V isits Requested Visits Authorized [id number] New Request 05/14/2024 06/08/2025 1 1 [facility] for referral (narrative)No reason for referral information [facility]WSouth[facility] N[facility]* Outpatient Procedure (Routine) - Closed Specialty Diagnoses / Procedures Referred By Leona forrest Referred To Contact [facility] Diagnoses Paraesophageal hernia Procedures EGD - THERAPEUTIC, EUS, OR TUBE INTERVENTIONS ESOPHAGOGASTRODUODENOSC OPY TRANSORAL DIAGNOSTIC Agatha Bernabe MD [address] [address] [facility] [address] [place] [address] Referral ID Status Reason Start Date Expiration Date V isits Requested Visits Authorized [id number] Closed Auto-Generate d Referral 02/11/2024 01/13/2025 1 1 [facility] for visit Narrative* Auth/Cert Specialty Diagnoses / Procedures Referred By Contac t Referred To Contact Diagnoses Paraesophageal hernia Paraesophageal hernia [K44.9] Procedures PA LAPS RPR PARAESPHGL HRNA INCL FUNDPLSTY W/O MESH REVISION REPAIR HERNIA PARAESOPHAGEAL LAPAROSCOPIC W/O MESH Wesley Bui MD [address] [place] [address] [facility] [address] [place] [address] Referral ID Status Reason Start Date Expiration Date Visits Re quested Visits Authorized [id number] 1 1 [facility] Summary Purpose Family History No Family History Records Found Relationship Condition Age at Onset Recorded Date/T andrew father Coronary artery disease Unknown Arthritis Unknown Myocardial infarction Unknown Cerebrovascular accident (CVA) Unknown mother Arthritis Unknown Hypertension Unknown sister Arthritis Unknown aunt Malignant neoplasm of breast Unknown Advance Directives No Advanced Directives Records Found Advance Directive Response Recorded Date/ Time Name of Medical Power of Pilot Plant Supervisor RYANNE VIDAL July 31, 2021 1:17pm Advance Directives No October 28 1:15pm Living Will Yes August 28, 2021 8:19am Power of Pilot Plant Supervisor Yes August 28 8:19am Advance Directive Response Recorded Date/ Time Name of Medical Power of Pilot Plant Supervisor RYANNE VIDAL July 31, 2021 1:17pm Advance Directives No October 28 1:15pm Living Will Yes September 04, 2021 12:03pm Power of Pilot Plant Supervisor Yes September 04 12:03pm Advance Directive Response Recorded Date/ Time Name of Medical Power of Pilot Plant Supervisor RYANNE VIDAL July 31, 2021 1:17pm Name of Medical Power of Pilot Plant Supervisor RYANNE VIDAL September 04, 2021 12:03pm Advance Directives No October 28 1:15pm Living Will Yes September 04, 2021 12:03pm Power of Pilot Plant Supervisor Yes September 04 12:03pm Advance Directive Response Recorded Date/ Time Name of Medical Power of Pilot Plant Supervisor RYANNE VIADL September 04, 2021 12:03pm Advance Directives No October 28 1:15pm Living Will Yes September 04, 2021 12:03pm Power of Pilot Plant Supervisor Yes [address], 202 2 12:03pm Advance Directive Response Recorded Date/ Time Advance Directives No October 28 1:15pm Living Will Yes September 04, 2021 12:03pm Power of Pilot Plant Supervisor Yes September 04 12:03pm Advance Directive Response Recorded Date/ Time Advance Directives No October 28 12:15pm Living Will Yes September 04, 2021 11:03am Power of Pilot Plant Supervisor Yes September 04 11:03am Advance Directive Response Recorded Date/ Time Name of Medical Power of Pilot Plant Supervisor SPOUSE/DAUGHTE R AugustMarch 05, 2023 2:36pm Name of Medical Power of Pilot Plant Supervisor April 02, 2023 3:53pm Advance Directives No October 28 1:15pm Living Will Yes April 02 3:53pm Power of Pilot Plant Supervisor Yes April 02, 2023 3:53pm Advance Directive Response Recorded Date/ Time Name of Medical Power of Pilot Plant Supervisor SPOUSE/DAUGHTE R AugustMarch 05, 2023 1:36pm Name of Medical Power of Pilot Plant Supervisor April 02, 2023 2:53pm Advance Directives No October 28 12:15pm Living Will Yes April 02 2:53pm Power of Pilot Plant Supervisor Yes April 02, 2023 2:53pm Advance Directive Response Recorded Date/ Time Advance Directives No October 28 1:15pm Living Will Yes April 02 3:53pm Power of Pilot Plant Supervisor Yes April 02, 2023 3:53pm Date Activated Date Inactivated Comments 06/15/2024 9:33 AM Date Activated Date Inactivated Comments 06/15/2024 9:33 AM Advance Directive Response Recorded Date/ Time Living Will Yes November 20, 2023 11:20am Do you have a Healthcare Power of Pilot Plant Supervisor? Yes November 20, 2023 11:20am Living Will Yes April 02 3:53pm Do you have a Healthcare Power of Pilot Plant Supervisor? Yes April 02, 2023 3:53pm Advance Directives No October 28 1:15pm Chief Complaint and Reason for Visit Chief Complaint ABD PAIN ABDOMINAL PAIN SCREENING Pre-Surgical Testing PAT SCREENING 2 WK FU EGD Possible Fundoplication Add'l order Dr Alvarenga 01/18/21 Reason for Visit Abdominal pain GERD (gastroesophageal reflux disease) Large hiatal hernia Abdominal pain GERD (gastroesophageal reflux disease) Large hiatal hernia GERD (gastroesophageal reflux disease) Large hiatal hernia Chief Complaint ABDOMINAL PAIN SCREENING Pre-Surgical Testing PAT SCREENING 2 WK FU EGD Possible Fundoplication Add'l order Dr Alvarenga 01/18/21 LAP HIATAL HERNIA REP WITH TOUPET PROCEDURE LAP HIATAL HERNIA REP WITH TOUPET PROCEDURE LAP HIATAL HERNIA REP WITH TOUPET PROCEDURE Reason for Visit Abdominal pain GERD (gastroesophageal reflux disease) Large hiatal hernia Abdominal pain GERD (gastroesophageal reflux disease) Large hiatal hernia GERD (gastroesophageal reflux disease) Large hiatal hernia GERD (gastroesophageal reflux disease) Large hiatal hernia Chief Complaint ABDOMINAL PAIN SCREENING Pre-Surgical Testing PAT SCREENING 2 WK FU EGD Possible Fundoplication Add'l order Dr Alvarenga 01/18/21 LAP HIATAL HERNIA REP WITH TOUPET PROCEDURE LAP HIATAL HERNIA REP WITH TOUPET PROCEDURE LAP HIATAL HERNIA REP WITH TOUPET PROCEDURE LAP HIATAL HERNIA REP WITH TOUPET PROCEDURE 1 WEEK FUP LAP HIATAL HERNIA 09/05/2021 Reason for Visit Abdominal pain GERD (gastroesophageal reflux disease) Large hiatal hernia Abdominal pain GERD (gastroesophageal reflux disease) Large hiatal hernia GERD (gastroesophageal reflux disease) Large hiatal hernia GERD (gastroesophageal reflux disease) Large hiatal hernia Large hiatal hernia Chief Complaint SCREENING Pre-Surgical Testing PAT SCREENING 2 WK FU EGD Possible Fundoplication Add'l order Dr Alvarenga 01/18/21 LAP HIATAL HERNIA REP WITH TOUPET PROCEDURE LAP HIATAL HERNIA REP WITH TOUPET PROCEDURE LAP HIATAL HERNIA REP WITH TOUPET PROCEDURE LAP HIATAL HERNIA REP WITH TOUPET PROCEDURE 1 WEEK FUP LAP HIATAL HERNIA 09/05/2021 S/O 8 WK FU 1 Y FU Reason for Visit Abdominal pain GERD (gastroesophageal reflux disease) Large hiatal hernia GERD (gastroesophageal reflux disease) Large hiatal hernia GERD (gastroesophageal reflux disease) Large hiatal hernia Large hiatal hernia Abdominal pain Dumping syndrome GERD (gastroesophageal reflux disease) History of fundoplication Atherosclerotic heart disease of [place] coronary artery without angina pectoris Atypical chest pain Bicuspid aortic valve Essential (primary) hypertension Palpitations Pure hypercholesterolemia Chief Complaint Pre-Surgical Testing PAT SCREENING 2 WK FU EGD Possible Fundoplication Add'l order Dr Alvarenga 01/18/21 LAP HIATAL HERNIA REP WITH TOUPET PROCEDURE LAP HIATAL HERNIA REP WITH TOUPET PROCEDURE LAP HIATAL HERNIA REP WITH TOUPET PROCEDURE LAP HIATAL HERNIA REP WITH TOUPET PROCEDURE 1 WEEK FUP LAP HIATAL HERNIA 09/05/2021 S/O 8 WK FU 1 Y FU S/O Reason for Visit Abdominal pain GERD (gastroesophageal reflux disease) Large hiatal hernia GERD (gastroesophageal reflux disease) Large hiatal hernia GERD (gastroesophageal reflux disease) Large hiatal hernia Large hiatal hernia Abdominal pain Dumping syndrome GERD (gastroesophageal reflux disease) History of fundoplication Atherosclerotic heart disease of [place] coronary artery without angina pectoris Atypical chest pain Bicuspid aortic valve Essential (primary) hypertension Palpitations Pure hypercholesterolemia Chief Complaint 8 WK FU 1 Y FU S/O S/O plus add'l order dr alvarenga 12/24/21 HEADACHES, DIZZYNESS, RECENT FALL 3 M FU FALL RIGHT HIP PAIN Reason for Visit Abdominal pain Dumping syndrome GERD (gastroesophageal reflux disease) History of fundoplication Atherosclerotic heart disease of [place] coronary artery without angina pectoris Atypical chest pain Bicuspid aortic valve Essential (primary) hypertension Palpitations Pure hypercholesterolemia Dumping syndrome GERD (gastroesophageal reflux disease) History of fundoplication Chief Complaint S/O plus add'l order dr alvarenga 12/24/21 HEADACHES, DIZZYNESS, RECENT FALL 3 M FU FALL RIGHT HIP PAIN S/O Reason for Visit Dumping syndrome GERD (gastroesophageal reflux disease) History of fundoplication Chief Complaint 3 M FU FALL RIGHT HIP PAIN S/O 3 MO FU Reason for Visit Dumping syndrome GERD (gastroesophageal reflux disease) History of fundoplication Dysphagia Dumping syndrome GERD (gastroesophageal reflux disease) History of fundoplication Chief Complaint 3 MO FU SCREENING Reason for Visit Dysphagia Dumping syndrome GERD (gastroesophageal reflux disease) History of fundoplication Chief Complaint SCREENING 3 M FU RIGHT SHOULDER PAIN Reason for Visit Dumping syndrome Esophageal spasm GERD (gastroesophageal reflux disease) History of fundoplication Chief Complaint SCREENING 3 M FU RIGHT SHOULDER PAIN BURSITIS R SHOULDER TO FAAndre Reason for Visit Dumping syndrome Esophageal spasm GERD (gastroesophageal reflux disease) History of fundoplication Chief Complaint RIGHT SHOULDER PAIN BURSITIS R SHOULDER TO FAX Atherosclerotic heart disease of [place] coronary a 3 MO FU EORDERS CERVICALGIA,OA RT SHLD/RX HERE Reason for Visit Abdominal pain Change in bowel habit Dumping syndrome Esophageal spasm GERD (gastroesophageal reflux disease) History of fundoplication Chief Complaint RIGHT SHOULDER PAIN BURSITIS R SHOULDER TO FAX Atherosclerotic heart disease of [place] coronary a 3 MO FU EORDERS Hypothyroidism, unspecified CERVICALGIA,OA RT SHLD/RX HERE Reason for Visit Abdominal pain Change in bowel habit Dumping syndrome Esophageal spasm GERD (gastroesophageal reflux disease) History of fundoplication Chief Complaint BURSITIS R SHOULDER DR ENRRIQUE NGUYỄN Atherosclerotic heart disease of [place] coronary a 3 MO FU EORDERS Hypothyroidism, unspecified 1 y fu PREV PFM PT LOW BACK PAIN CERVICALGIA,OA RT SHLD/RX HERE Reason for Visit Abdominal pain Change in bowel habit Dumping syndrome Esophageal spasm GERD (gastroesophageal reflux disease) History of fundoplication Atherosclerotic heart disease of [place] coronary artery without angina pectoris Bicuspid aortic valve Essential (primary) hypertension Pure hypercholesterolemia Chief Complaint BURSITIS R SHOULDER DR ENRRIQUE NGUYỄN Atherosclerotic heart disease of [place] coronary a 3 MO FU EORDERS Hypothyroidism, unspecified 1 y fu PREV PFM PT LOW BACK PAIN CERVICALGIA,OA RT SHLD/RX HERE BACK PAIN Reason for Visit Abdominal pain Change in bowel habit Dumping syndrome Esophageal spasm GERD (gastroesophageal reflux disease) History of fundoplication Atherosclerotic heart disease of [place] coronary artery without angina pectoris Bicuspid aortic valve Essential (primary) hypertension Pure hypercholesterolemia Chief Complaint Hypothyroidism, unsp ecified 1 y fu PREV PFM PT LOW BACK PAIN CERVICALGIA,OA RT SHLD/RX HERE BACK PAIN 2 wk fu left hip pain Reason for Visit Atherosclerotic hear t disease of [place] coronary artery without angina pectoris Bicuspid aortic valve Essential (primary) hypertension Pure hypercholesterolemia Chief Complaint 1 y fu PREV PFM PT LOW BACK PAIN CERVICALGIA,OA RT SHLD/RX HERE BACK PAIN 2 wk fu left hip pain [id number]/ ALSO DO INR Reason for Visit Atherosclerotic hear t disease of [place] coronary artery without angina pectoris Bicuspid aortic valve Essential (primary) hypertension Pure hypercholesterolemia Chief Complaint 2 wk fu left hip pain [id number]/ ALSO DO INR PREOP 6 M FU CHEST PAIN CHEST PAIN Reason for Visit Atherosclerotic hear t disease of [place] coronary artery without angina pectoris Bicuspid aortic valve Essential (primary) hypertension Factor V deficiency Pure hypercholesterolemia Chief Complaint 6 M FU CHEST PAIN CHEST PAIN SCREENING OSTEO Reason for Visit Atherosclerotic hear t disease of [place] coronary artery without angina pectoris Bicuspid aortic valve Essential (primary) hypertension Factor V deficiency Pure hypercholesterolemia Chief Complaint Admit Date 3 M FU June 23, 2024 7 :22am 6 M FU August 04, 2024 12:4 8pm SCREENING August 19, 2024 9:2 2am Reason for Visit Admit Date Abdominal pain June 23, 2024 7 :22am Change in bowel habit June 23, 2024 7:22am Dumping syndrome June 23, 2024 7 :22am Esophageal spasm June 23, 2024 7 :22am GERD (gastroesophageal reflux disease) J anuary 2024 7:22am History of fundoplication June 23, 2024 7:22am Dysphagia June 23, 2024 7 :22am Atypical chest pain August 04, 2024 12:4 8pm Bicuspid aortic valve August 04, 2024 12 :48pm Essential (primary) hypertension August 042024 12:48pm 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, 2024 12: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 Palpitations August 04, 2024 12:4 8pm Chief Complaint Admit Date 3 M FU June 23, 2024 7 :22am 6 M FU August 04, 2024 12:4 8pm SCREENING August 19, 2024 9:2 2am 4 M FU October 15, 2024 9:00a m Reason for Referral Specialty Diagnoses / Procedures Referred By Leona t Referred To Contact Procedures ECG Wesley Bui MD [address] [place] [phone] Referral ID Status Reason Start Date Expiration Date V isits Requested Visits Authorized [id number] New Request 06/17/2024 07/12/2025 1 1 Specialty Diagnoses / Procedures Referred By Leona t Referred To Contact Diagnoses Postoperative pain Procedures PA INCENTIVE SPIROMETRY Wesley Bui MD [address] [place] [phone] Referral ID Status Reason Start Date Expiration Date V isits Requested Visits Authorized [id number] New Request 06/18/2024 07/13/2025 1 1 Referral ID Status Reason Start Date Expiration Date V isits Requested Visits Authorized [id number] New Request 06/17/2024 07/12/2025 1 1 Specialty Diagnoses / Procedures Referred By Contkiet t Referred To Contact Diagnoses Gastroesophageal reflux disease with esophagitis without hemorrhage Procedures MANOMETRY ESOPHAGEAL PA ESOPHAGEAL MOTILITY STUDY W/INTERP&RPT Wesley Bui MD [address] [phone] Referral ID Status Reason Start Date Expiration Date V isits Requested Visits Authorized [id number] New Request 03/26/2024 04/20/2025 1 1 Specialty Diagnoses / Procedures Referred By Contac t Referred To Contact Diagnoses Gastroesophageal reflux disease with esophagitis without hemorrhage Procedures INTERVENTIONAL UPPER ENDOSCOPY PA ESOPHAGOGASTRODUODENOSCOPY TRANSORAL DIAGNOSTIC Wesley Bui MD [address] [phone] Referral ID Status Reason Start Date Expiration Date V isits Requested Visits Authorized [id number] New Request 03/26/2024 04/20/2025 1 1 Specialty Diagnoses / Procedures Referred By Contac t Referred To Contact Diagnoses Gastroesophageal reflux disease with esophagitis without hemorrhage Procedures CRUZ PH Wesley Bui MD [address] [phone] Referral ID Status Reason Start Date Expiration Date V isits Requested Visits Authorized [id number] New Request 03/26/2024 04/20/2025 1 1 Specialty Diagnoses / Procedures Referred By Contac t Referred To Contact General Surgery Diagnoses Gastroesophageal reflux disease without esophagitis Hiatal hernia Procedures CONSULT TO GENERAL SURGERY OFFICE/OUTPATIENT NEW HIGH MDM 60 MINUTES Luan Chapa MD [address] [place] [address] Agatha Bernabe MD [address] [place] [address] Referral ID Status Reason Start Date Expiration Date Visits Requested Visits Authorized [id number] Authorized PCP Requested Referral 01/07/2024 01/06/2025 1 1 Additional Source Comments INFORMATION SOURCE (unrecogn ized section and content) DATE CREATED AUTHOR 11/12/2018 [facility] DATE CREATED AUTHOR AUTHOR'S ORGANIZ ATION 12/14/2018 [facility] DATE CREATED AUTHOR AUTHOR'S ORGANIZ ATION 05/20/2023 [facility] ([place]) DATE CREATED AUTHOR AUTHOR'S ORGANIZ ATION 03/06/2024 [facility] DATE CREATED AUTHOR AUTHOR'S ORGANIZ ATION 11/12/2024 [facility] DATE CREATED AUTHOR AUTHOR'S ORGANIZ ATION 01/16/2025 [facility] Goals (unrecognized section and content) Goals may be documented in a n alternate sectionGoals may be documented in an alternate sectionGoals may be documented in an alternate sectionGoals may be documented in an alternate sectionGoals may be documented in an alternate sectionGoals may be documented in an alternate sectionGoals may be documented in an alternate sectionGoals may be documented in an alternate sectionGoals may be documented in an alternate sectionGoals may be documented in an alternate sectionGoals may be documented in an alternate sectionGoals may be documented in an alternate sectionGoals may be documented in an alternate sectionGoals may be documented in an alternate sectionGoals may be documented in an alternate sectionGoals may be documented in an alternate sectionGoals may be documented in an alternate sectionGoals may be documented in an alternate section No data available for this sectionGoals may be documented in an alternate section No data available for this sectionGoals may be documented in an alternate sectionGoals may be documented in an alternate section Care Teams (unrecognized sec tion and content) Team Status: Active Member Role Status Dates Dr. Adelina Alvarenga DO Family Provider Active Dr. Adelina Alvarenga DO Primary Care Provider Active Team Status: Inactive Member Role Status Dates Dr. Adelina Alvarenga DO Primary Care Provider, Referring P rodora Active Dr. Juliette Trejo , DO Attending Provider Active Team Status: Inactive Member Role Status Dates Dr. Adelina Alvarenga DO Primary Care Provider, Attending P rovider Active Team Status: Active Member Role Status Dates Dr. Adelina Alvarenga DO Primary Care Provide r, Attending Provider, Referring Provider Active Team Status: Inactive Member Role Status Dates Dr. Adelina Alvarenga DO Primary Care Provide r, Attending Provider, Referring Provider Active Team Status: Inactive Member Role Status Dates Dr. Adelina Alvarenga DO Primary Care Provider Active Dr. Adama Walters MD Attending Provider Active Team Status: Active Member Role Status Dates Dr. Adelina Malys , DO Primary Care Provider Active Betty WITT PA Attending Provider, Referring Pr ovider Active Team Status: Active Member Role Status Dates Dr. Adelina Alvarenga DO Primary Care Provider Active Dr. Antonio Graves MD Attending Provider Activ e Team Status: Inactive Member Role Status Dates Dr. Adelina Alvarenga DO Primary Care Provider Active Dr. Harry Hamilton MD Attending Provider, Referring Provider Active Team Status: Inactive Member Role Status Dates Dr. Adelina Alvarenga DO Primary Care Provider Active Betty WITT PA Attending Provider, Referring Pr ovider Active Team Status: Active Member Role Status Dates Dr. Adelina Alvarenga DO Primary Care Provider Active Dr. Sidney Acosta MD Attending Provider, Referring P rovider Active Team Status: Inactive Member Role Status Dates Dr. Adelina Alvarenga DO Primary Care Provider Active Dr. Juliette Trejo , DO Attending Provider, Referring Provider Active Team Status: Inactive Member Role Status Dates Dr. Adelina Alvarenga DO Primary Care Provider, Referring P rovider Active Washington Arvizu NP, MATERIAL HAULER-C Attending Provider Active Team Status: Inactive Member Role Status Dates Dr. Adelina Alvarenga DO Primary Care Provider Active Stuart Vaughan NP-C Attending Provider, Referring Prov ider Active Team Status: Active Member Role Status Dates Dr. Adelina Alvarenga DO Primary Care Provider, Referring P rovider Active Dr. Juliette Trejo , DO Attending Provider, Other Prov ider Active Team Status: Inactive Member Role Status Dates Dr. Adelina Alvarenga DO Primary Care Provider Active Dr. Sidney Acosta MD Attending Provider, Referring P rovider Active Team Status: Inactive Member Role Status Dates Dr. Adelina Alvarenga DO Primary Care Provider Active Dr. Jayjay Arango DO Emergency Provider Active Team Status: Inactive Member Role Status Dates Dr. Adelina Alvarenga DO Primary Care Provider, Other Provi zen Active Dr. Mario Mensah , DO Attending Provider, Referring P rovider Active Team Status: Inactive Member Role Status Dates Dr. Adelina Alvarenga DO Primary Care Provider Active Dr. Jayjay Arango DO Attending Provider, Emergency Pro vider Active Team Status: Active Member Role Status Dates Dr. Adelina Alvarenga DO Primary Care Provider Active Dr. Antonio Graves MD Attending Provider Activ e Dr. Mario Mensah , DO Referring Provider Active Team Status: Active Member Role Status Dates Dr. Adelina Alvarenga , DO Primary Care Provider Active Washington Arvizu MATERIAL HAULER, MATERIAL HAULER-C Referring Provider, Other Provide r Active Dr. Omar Wilson MD Attending Provider Active Team Status: Inactive Member Role Status Dates Dr. Adelina Alvarenga , DO Primary Care Provide r, Attending Provider, Referring Provider Active Dr. Mario Mensah , DO Other Provider Active Team Status: Inactive Member Role Status Dates Dr. Adelina Alvarenga , DO Primary Care Provider Active Dr. Mario Mensah , DO Attending Provider, Referring P rovider Active Team Status: Inactive Member Role Status Dates Dr. Adelina Alvarenga , DO Primary Care Provider Active Washington Arvizu MATERIAL HAULER, MATERIAL HAULER-C Attending Provider, Referring Pro vider Active [employer] Relationship Specialty Start Date End Date Adelina Alvarenga DO PCP - General Family Medicine 11/23/15 [employer] Relationship Specialty Start Date End Date Adelina Alvarenga DO PCP - General Family Medicine 11/23/15 [employer] Relationship Specialty Start Date End Date DevanteAdelina em DO PCP - General Family Medicine 11/23/15 [employer] Relationship Specialty Start Date End Date Adelina Alvarenga DO PCP - General Family Medicine 11/23/15 [employer] Relationship Specialty Start Date End Date Adelina Alvarenga DO PCP - General Family Medicine 11/23/15 [employer] Relationship Specialty Start Date End Date Adelina Alvarenga DO PCP - General Family Medicine 11/23/15 [employer] Relationship Specialty Start Date End Date Adelina Alvarenga DO [address] [place] [phone] PCP - General Family Medicine 04/01/24 [employer] Relationship Specialty Start Date End Date Adelina Alvarenga DO [address] [place] [phone] PCP - General Family Medicine 04/01/24 [employer] Relationship Specialty Start Date End Date Adelina Alvarenga DO [address] [place] [phone] PCP - General Family Medicine 04/01/24 [employer] Relationship Specialty Start Date End Date Adelina Alvarenga DO [address] [place] [phone] PCP - General Family Medicine 04/01/24 [employer] Relationship Specialty Start Date End Date Adelina Alvarenga DO [address] [place] [phone] PCP - General Family Medicine 04/01/24 Team Status: Active Member Role Status Dates Dr. Adelina Alvarenga DO Primary Care Provider Active Team Status: Inactive Member Role Status Dates Dr. Adelina Alvarenga DO Primary Care Provider Active Start: June 23, 2024 End: June 23, 2024 Dr. Adelina Alvarenga DO Referring Provider Active St art: June 23, 2024 End: June 23, 2024 Dr. Juliette Trejo DO Attending Provider Active Start: June 23, 2024 End: June 23, 2024 Team Status: Inactive Member Role Status Dates Dr. Adelina Alvarenga DO Primary Care Provider Active Start: June 23, 2024 End: June 23, 2024 Dr. Adelina Alvarenga DO Attending Provider Active St art: June 23, 2024 End: June 23, 2024 Dr. Adelina Alvarenga DO Referring Provider Active St art: June 23, 2024 End: June 23, 2024 Team Status: Inactive Member Role Status Dates Dr. Adelina Alvarenga DO Primary Care Provider Active Start: July 01, 2024 End: July 01, 2024 Dr. Adelina Alvarenga DO Attending Provider Active St art: July 01, 2024 End: July 01, 2024 Dr. Adelina Alvarenga DO Referring Provider Active St art: July 01, 2024 End: July 01, 2024 Team Status: Inactive Member Role Status Dates Dr. Adelina Alvaernga DO Primary Care Provider Active Start: July 13, 2024 End: July 13, 2024 Dr. Adama Walters MD Attending Provider Active Start: July 13, 2024 End: July 13, 2024 Dr. Adama Walters MD Referring Provider Active Start: July 13, 2024 End: July 13, 2024 Team Status: Inactive Member Role Status Dates Dr. Adelina Alvarenga DO Primary Care Provider Active Start: August 04, 2024 End: August 04, 2024 Dr. Adelina Alvarenga DO Referring Provider Active St art: August 04, 2024 End: August 04, 2024 Dr. Danny Treadwell MD Attending Provider Active Start: August 04, 2024 End: August 04, 2024 Team Status: Inactive Member Role Status Dates Dr. Adelina Alvarenga DO Primary Care Provider Active Start: August 19, 2024 End: August 19, 2024 Dr. Adelina Alvarenga DO Attending Provider Active St art: August 19, 2024 End: August 19, 2024 Dr. Adelina Alvarenga DO Referring Provider Active St art: August 19, 2024 End: August 19, 2024 [employer] Relationship Specialty Start Date End Date Adelina Alvarenga DO PCP - General Family Medicine 04/01/24 Team Status: Inactive Member Role Status Dates Dr. Adelina Alvarenga DO Primary Care Provider Active Start: October 15, 2024 End: October 15, 2024 Dr. Adelina Alvarenga DO Referring Provider Active St art: October 15, 2024 End: October 15, 2024 Dr. Juliette Trejo , Attending Provider Active Start: October 15, 2024 End: October 15, 2024 Source Comments (unrecognize d section and content) In the event this informatio n is protected by the Federal Confidentiality of Alcohol and Drug Abuse Patient Records regulations: The Federal rules restrict any use of the information to criminally investigate or prosecute any alcohol or drug abuse patient.[facility] the event this information is protected by the Federal Confidentiality of Alcohol and Drug Abuse Patient Records regulations: The Federal rules restrict any use of the information to criminally investigate or prosecute any alcohol or drug abuse patient.[facility] the event this information is protected by the Federal Confidentiality of Alcohol and Drug Abuse Patient Records regulations: The Federal rules restrict any use of the information to criminally investigate or prosecute any alcohol or drug abuse patient.[facility] the event this information is protected by the Federal Confidentiality of Alcohol and Drug Abuse Patient Records regulations: The Federal rules restrict any use of the information to criminally investigate or prosecute any alcohol or drug abuse patient.[facility] the event this information is protected by the Federal Confidentiality of Alcohol and Drug Abuse Patient Records regulations: The Federal rules restrict any use of the information to criminally investigate or prosecute any alcohol or drug abuse patient.[facility] the event this information is protected by the Federal Confidentiality of Alcohol and Drug Abuse Patient Records regulations: The Federal rules restrict any use of the information to criminally investigate or prosecute any alcohol or drug abuse patient.[facility] Reason for Visit (unrecogniz ed section and content) Reason Comments Appointment Reason Comments New Patient HBC HH New HBC HH Reason Comments New Patient Reason Comments Appointment EGD CRUZ Reason Comments Established Patient Reason Comments New Patient Hiatal hernia Specialty Diagnoses / Procedures Referred By Contac t Referred To Contact General Surgery Diagnoses Hiatal hernia Friend, Juliette, [address] [phone] [facility] [address] [place] [address] Referral ID Status Reason Start Date Expiration Date V isits Requested Visits Authorized [id number] Pending Review 03/12/2024 04/06/2025 1 1 Specialty Diagnoses / Procedures Referred By Contac t Referred To Contact Diagnoses Gastroesophageal reflux disease with esophagitis without hemorrhage Procedures INTERVENTIONAL UPPER ENDOSCOPY PA ESOPHAGOGASTRODUODENOSCOPY TRANSORAL DIAGNOSTIC Wesley Bui MD [address] [place] [phone] Referral ID Status Reason Start Date Expiration Date V isits Requested Visits Authorized [id number] New Request 03/26/2024 04/20/2025 1 1 Reason Comments Follow-up Test results Reason Comments Pre-operative Consultation Specialty Diagnoses / Procedures Referred By Leona forrest Referred To Contact Anesthesiology Diagnoses Gastroesophageal reflux disease with esophagitis without hemorrhage Wesley Bui MD [address] [place] [phone] Referral ID Status Reason Start Date Expiration Date V isits Requested Visits Authorized [id number] New Request 05/14/2024 06/08/2025 1 1 Reason Comments Post Op Visit Reason Comments Procedure [facility] Specialty Diagnoses / Procedures Referred By Leona t Referred To Contact Diagnoses Gastroesophageal reflux disease with esophagitis without hemorrhage Procedures MANOMETRY ESOPHAGEAL PA ESOPHAGEAL MOTILITY STUDY W/INTERP&RPT Wesley Bui MD [address] [address] Phone: tel: fax: Referral ID Status Reason Start Date Expiration Date V isits Requested Visits Authorized [id number] New Request 03/26/2024 04/20/2025 1 1 Scheduled Active and Recently Administ ered Medications (unrecognized section and content) Medication Order 06/16/2024 06/17/2024 06/18/2024 Atenolol (TENORMIN) tablet 12.5 mg 12.5 mg, Oral, DAILY EVERY MORNING, First dose on Fri06/16/24 at 0900, Until Discontinued, Ok to crush 0857 (Not Given - Provider: Anaid Lopez RN - Reason: Other - Comment: B/P 99/57) 0829 (Not Given - Provider: Lissy Ku RN - Reason: Other - Comment: BP 100/59) 0957 (Not Given - Provider: Eden Morales RN - Reason: Other - Comment: B/P 97/53) Atenolol (TENORMIN) tablet 25 mg 25 mg, Oral, Nightly, First dose on Fri06/15/24 at 2100, Until Discontinued, Ok to crush 2317 (Not Given - Provider: Sandra Kincaid RN - Reason: Other - Comment: spb low) 2107 (Given - Provider: Layla Sinha, LISA) Enoxaparin Sodium (LOVENOX) injection 60 mg(Linked Group 1) 60 mg (rounded from 58.6 mg = 1 mg/kg 58.6 kg Order-specific weight), Subcutaneous, EVERY 12 HOURS NON-STANDARD, First dose on Fri06/16/24 at 0845, Until Discontinued, For SUBCUTANEOUS route ONLY: alternate injection sites between left and right abdominal wall, pinching location and avoiding area around navel. If unable to use abdominal sites, may use the front or side of thighs., Indications: factor V leiden 1003 (Given - Provider: Anaid Lopez RN)2121 (Given - Provider: Sandra Kincaid RN) 0830 (Given - Provider: Lissy Ku RN)2307 (Given - Provider: Layla Sinha, RN) 0918 (Given - Provider: Eden Morales RN) Levothyroxine (SYNTHROID) tablet 75 mcg 75 mcg, Oral, DAILY BEFORE BREAKFAST, First dose on Fri06/16/24 at 0600, Until Discontinued, Ok to crush 0608 (Given - Provider: Sandra Kincaid RN) 0554 (Given - Provider: Sandra Kincaid RN) 0531 (Given - Provider: Layla Sinha RN) Ondansetron 4mg/2ml (ZOFRAN) injection 4 mg 4 mg, Intravenous, EVERY 6 HOURS, First dose on Fri06/15/24 at 1800, Until Discontinued, Post-op/Post-Proc 0608 (Given - Provider: Sandra Kincaid RN)1217 (Given - Provider: Anaid Lopez RN)1801 (Given - Provider: Anaid Lopez, RN)2205 (Given - Provider: Sandra Kincaid RN) 0555 (Given - Provider: Sandra Kincaid RN)1219 (Given - Provider: Lissy Ku RN)1846 (Given - Provider: Lissy Ku RN)2317 (Given - Provider: Layla Sinha RN) 0531 (Given - Provider: Layla Sinha RN)1238 (Given - Provider: Eden Morales RN) Continuous Medication Order 06/16/2024 06/17/2024 06/18/2024 Sodium chloride 0.9% IV solution Intravenous, at 75 mL/hr, CONTINUOUS, Starting on Fri06/15/24 at 1515, Until Fri06/18/24 at 1611, Post-op/Post-Proc 0122 (Rate/Dose Verify - Provider: Sandra Kincaid RN)0321 (Rate/Dose Verify - Provider: Sandra Kincaid RN)0612 (Rate/Dose Verify - Provider: Sandra Kincaid RN)0711 (Paused - Provider: Layla Sinha RN)0714 (Restarted - Provider: Layla Sinha RN)0953 (Paused - Provider: Layla Sinha RN) 1849 (Restarted - Provider: Layla Sinha RN)2257 (Paused - Provider: Layla Sinha RN)2305 (Restarted - Provider: Layla Sinha RN)2306 ($$New Bag$$ - Provider: Layla Sinha RN)2307 (Rate/Dose Verify - Provider: Layla Sinha RN) [phone] (Rate/Dose Verify - Provider: Layla Sinha RN) PRN Medication Order 06/16/2024 06/17/2024 06/18/2024 Ibuprofen (MOTRIN) tablet 400 mg 400 mg, Oral, EVERY 6 HOURS NEEDED, Starting on Fri06/18/24 at 1100, Until Fri06/18/24 at 1611, Mild Pain, Moderate Pain, Give with food lidocaine 4 % patch 1 patch 1 patch, Transdermal, Administer over 12 Hours, DAILY NEEDED, Starting on Fri06/17/24 at 1452, Until Fri06/18/24 at 1611, Other, Pain, Apply to painful areas of chest and back . 1545 (Patch Applied - Provider: Lissy Ku RN) 0531 (Patch Removed - Provider: Layla Sinha RN) Morphine (PF) injection 2 mg(Linked Group 2) 2 mg, Intravenous, EVERY 3 HOURS NEEDED, Starting on 06/15/24 at 1505, Until Fri06/18/24 at 1611, Severe Pain, Use as initial dose. Higher dose may be administered if lower dose was previously documented as ineffective and did not result in adverse effects (RR<10, decrease in level of consciousness)., Post-op/Post-Proc 2205 (Given - Provider: Sandra Kincaid RN) Morphine (PF) injection 4 mg(Linked Group 2) 4 mg, Intravenous, EVERY 3 HOURS NEEDED, Starting on 06/15/24 at 1505, Until Fri06/18/24 at 1611, Severe Pain, Higher dose may be administered if lower dose was previously documented as ineffective and did not result in adverse effects (RR<10, decrease in level of consciousness). Decrease back to lower dose if patient has adverse effects, or no PRN used in previous 12 hours., Post-op/Post-Proc 2205 (See Alternative - Provider: Sandra Kincaid RN) Ondansetron 4mg/2ml (ZOFRAN) injection 4 mg 4 mg, Intravenous, EVERY 8 HOURS NEEDED, Starting on Xiao 06/17/24 at 1844, Until Fri06/18/24 at 1611, Nausea / Vomiting, 1st line oxyCODONE (ROXICODONE) tablet 5 mg(Linked Group 3) 5 mg, Oral, EVERY 3 HOURS NEEDED, Starting on 06/15/24 at 1505, Until Fri06/18/24 at 1611, Moderate Pain, Use as initial dose. Higher dose may be administered if lower dose was previously documented as ineffective and did not result in adverse effects (RR<10, decrease in level of consciousness)., Post-op/Post-Proc 0322 (See Alternative - Provider: Sandra Kincaid RN)1213 (See Alternative - Provider: Anaid Lopez, LISA)1618 (See Alternative - Provider: Anaid Lopez, LISA)1945 (See Alternative - Provider: Sandra Kincaid RN)2246 (See Alternative - Provider: Sandra Kincaid RN) 0246 (See Alternative - Provider: Sandra Kincaid RN)0554 (Given - Provider: Sandra Kincaid RN)1227 (Given - Provider: Lissy Ku RN)1554 (Given - Provider: Lissy Ku RN)2108 (Given - Provider: Layla Sinha RN) 0052 (See Alternative - Provider: Layla Sinha RN) oxyCODONE (ROXICODONE) tablet 5 mg(Linked Group 3) 5 mg, Per NG tube, EVERY 3 HOURS NEEDED, Starting on Fri06/15/24 at 1505, Until Fri06/18/24 at 1611, Moderate Pain, Crush tablet prior to administration. Use as initial dose. Higher dose may be administered if lower dose was previously documented as ineffective and did not result in adverse effects (RR<10, decrease in level of consciousness)., Post-op/Post-Proc 0322 (See Alternative - Provider: Sandra Kincaid RN)1213 (See Alternative - Provider: Anaid Lopez RN)1618 (See Alternative - Provider: Anaid Lopez RN)1945 (See Alternative - Provider: Sandra Kincaid RN)2246 (See Alternative - Provider: Sandra Kincaid RN) 0246 (See Alternative - Provider: Sandra Kincaid RN)0554 (See Alternative - Provider: Sandra Kincaid RN)1227 (See Alternative - Provider: Lissy Ku RN)1554 (See Alternative - Provider: Lissy Ku RN)2108 (See Alternative - Provider: Layla Sinha RN) 0052 (See Alternative - Provider: Layla Sinha RN) oxyCODONE HCl (ROXICODONE) tablet 10 mg(Linked Group 3) 10 mg, Oral, EVERY 3 HOURS NEEDED, Starting on Fri06/15/24 at 1505, Until Fri06/18/24 at 1611, Moderate Pain, Higher dose may be administered if lower dose was previously documented as ineffective and did not result in adverse effects (RR<10, decrease in level of consciousness). Decrease back to lower dose if patient has adverse effects, or no PRN used in previous 12 hours., Post-op/Post-Proc 0322 (Given - Provider: Sandra Kincaid RN)1213 (Given - Provider: Anaid Lopez RN)1618 (Given - Provider: Anaid Lopez RN)1945 (Given - Provider: Sandra Kincaid RN)2246 (Given - Provider: Sandra Kincaid RN) 0246 (Given - Provider: Sandra Kincaid RN)0554 (See Alternative - Provider: Sandra Kincaid RN)1227 (See Alternative - Provider: Lissy Ku RN)1554 (See Alternative - Provider: Lissy Ku RN)210 (See Alternative - Provider: Layla Sinha RN) 005 (Given - Provider: Layla Sinha, RN) oxyCODONE HCl (ROXICODONE) tablet 10 mg(Linked Group 3) 10 mg, Per NG tube, EVERY 3 HOURS NEEDED, Starting on Fri06/15/24 at 1505, Until Fri06/18/24 at 1611, Moderate Pain, Crush tablet prior to administration. Higher dose may be administered if lower dose was previously documented as ineffective and did not result in adverse effects (RR<10, decrease in level of consciousness). Decrease back to lower dose if patient has adverse effects, or no PRN used in previous 12 hours., Post-op/Post-Proc 0322 (See Alternative - Provider: Sandra Kincaid RN)1213 (See Alternative - Provider: Anaid Lopez RN)1618 (See Alternative - Provider: Anaid Lopez RN)1945 (See Alternative - Provider: Sandra Kincaid RN)2246 (See Alternative - Provider: Sandra Kincaid RN) 0246 (See Alternative - Provider: Sandra Kincaid RN)0554 (See Alternative - Provider: Sandra Kincaid RN)1227 (See Alternative - Provider: Lissy Ku, LISA)1554 (See Alternative - Provider: Lissy Ku RN)210 (See Alternative - Provider: Layla Sinha RN) 005 (See Alternative - Provider: Layla Sihna, RN) Prochlorperazine (COMPAZINE) tablet 5 mg(Linked Group 4) 5 mg, Oral, EVERY 6 HOURS NEEDED, Starting on Fri06/15/24 at 1505, Until Fri06/18/24 at 1611, Nausea / Vomiting, Post-op/Post-Proc Promethazine (PHENERGAN) injection 6.25 mg 6.25 mg, Intravenous, EVERY 8 HOURS NEEDED, Starting on Xiao 06/17/24 at 1844, Until Fri06/18/24 at 1611, Nausea / Vomiting, 2nd line, Extravasation Risk. If given via IV route: dilute dose with 10mL normal saline and inject through a running IV or line over 5 minutes OR if no active IV or line is saline-dwelled dilute dose with 20mL normal saline and administer over 5 minutes. AVOID Intra-arterial administration; necrosis & gangrene have resulted. Hand, wrist or foot veins SHOULD BE AVOIDED. Linked Groups Order Group 1: Enoxaparin Sodium (LOVENOX) injection 60 mgJump to med 60 mg (rounded from 58.6 mg = 1 mg/kg 58.6 kg Order-specific weight), Subcutaneous, EVERY 12 HOURS NON-STANDARD, First dose on Fri06/16/24 at 0845, Until Discontinued, For SUBCUTANEOUS route ONLY: alternate injection sites between left and right abdominal wall, pinching location and avoiding area around navel. If unable to use abdominal sites, may use the front or side of thighs., Indications: factor V leiden And CBC,PLATELETS (COMPLETED) Routine, ONE TIME, On Fri06/16/24 at 0808, For 1 occurrence, Use existing specimen And PLATELET COUNT (CANCELED) Routine, EVERY 2 DAYS AM LAB, First occurrence on Fri06/18/24 at 0000, Until Specified, New collection And CHEM 7 (LYTES,BUN,CREA,GLUC) Baseline (COMPLETED) Routine, ONE TIME, On Fri06/16/24 at 0808, For 1 occurrence, New collection And CHEM 7 (LYTES,BUN,CREA,GLUC) (CANCELED) Routine, EVERY 3 DAYS AM LAB, First occurrence on Fri06/19/24 at 0500, Until Specified, New collection Group 2: Morphine (PF) injection 2 mgJump to med 2 mg, Intravenous, EVERY 3 HOURS NEEDED, Starting on 06/15/24 at 1505, Until Fri06/18/24 at 1611, Severe Pain, Use as initial dose. Higher dose may be administered if lower dose was previously documented as ineffective and did not result in adverse effects (RR<10, decrease in level of consciousness)., Post-op/Post-Proc Or Morphine (PF) injection 4 mgJump to med 4 mg, Intravenous, EVERY 3 HOURS NEEDED, Starting on Fri06/15/24 at 1505, Until Fri06/18/24 at 1611, Severe Pain, Higher dose may be administered if lower dose was previously documented as ineffective and did not result in adverse effects (RR<10, decrease in level of consciousness). Decrease back to lower dose if patient has adverse effects, or no PRN used in previous 12 hours., Post-op/Post-Proc Group 3: oxyCODONE (ROXICODONE) tablet 5 mgJump to med 5 mg, Oral, EVERY 3 HOURS NEEDED, Starting on Fri06/15/24 at 1505, Until Fri06/18/24 at 1611, Moderate Pain, Use as initial dose. Higher dose may be administered if lower dose was previously documented as ineffective and did not result in adverse effects (RR<10, decrease in level of consciousness)., Post-op/Post-Proc Or oxyCODONE HCl (ROXICODONE) tablet 10 mgJump to med 10 mg, Oral, EVERY 3 HOURS NEEDED, Starting on Fri06/15/24 at 1505, Until Fri06/18/24 at 1611, Moderate Pain, Higher dose may be administered if lower dose was previously documented as ineffective and did not result in adverse effects (RR<10, decrease in level of consciousness). Decrease back to lower dose if patient has adverse effects, or no PRN used in previous 12 hours., Post-op/Post-Proc Or oxyCODONE (ROXICODONE) tablet 5 mgJump to med 5 mg, Per NG tube, EVERY 3 HOURS NEEDED, Starting on Fri06/15/24 at 1505, Until Fri06/18/24 at 1611, Moderate Pain, Crush tablet prior to administration. Use as initial dose. Higher dose may be administered if lower dose was previously documented as ineffective and did not result in adverse effects (RR<10, decrease in level of consciousness)., Post-op/Post-Proc Or oxyCODONE HCl (ROXICODONE) tablet 10 mgJump to med 10 mg, Per NG tube, EVERY 3 HOURS NEEDED, Starting on Fri06/15/24 at 1505, Until Fri06/18/24 at 1611, Moderate Pain, Crush tablet prior to administration. Higher dose may be administered if lower dose was previously documented as ineffective and did not result in adverse effects (RR<10, decrease in level of consciousness). Decrease back to lower dose if patient has adverse effects, or no PRN used in previous 12 hours., Post-op/Post-Proc Group 4: Prochlorperazine (COMPAZINE) tablet 5 mgJump to med 5 mg, Oral, EVERY 6 HOURS NEEDED, Starting on Fri06/15/24 at 1505, Until Fri06/18/24 at 1611, Nausea / Vomiting, Post-op/Post-Proc Or Prochlorperazine (COMPAZINE) injection 5 mg (CANCELED) 5 mg, Intravenous, EVERY 6 HOURS NEEDED, Starting on Fri06/15/24 at 1505, Until Xiao 06/17/24 at 1844, Nausea / Vomiting, For IV route: dilute dose with 10mL normal saline and give by slow IV push at a rate of 5mg/min. Maximum of 40mg/day., Post-op/Post-Proc FOR RECORDS PERTAINING TO PATIENTS WHO ARE [...] BE BASED ON THE PRIMARY CLINICAL RECORDS. [employer] [facility]. provides no warranty or guarantee of the accuracy or completeness of information in this document.
[2025-01-20 06:37] LABS: Hematocrit 41.0 % (37-47); Hemoglobin 13.4 g/dL (12.0-15.0); Immature Granulocytes Count 0.010 X10^3/uL (0.0-0.0); Mean Corp Hgb Conc 32.7 g/dL (32-36); Mean Corpuscular Volume 98.6 fL (81-99); Mean Platelet Vol. 9.8 fl (6.2-12.0); NRBC Flagged by Analyzer 0 % (0-5); Platelet Count 186 K/mm3 (150-450); RBC Distribution Width CV 13.0 % (11.6-14.6); RBC Distribution Width SD 47.1 fl (35.1-43.9); Red Blood Count 4.16 M/mm3 (4.2-5.4); White Blood Count 3.8 K/mm3 (4.4-11.0)
[2025-01-20 07:16] LABS: AST(SGOT) 36 U/L (<=31); Alanine Aminotransfer ALT/SGPT 30 U/L (<=34); Albumin, Serum 3.8 g/dL (3.4-4.8); Alkaline Phosphatase 71 U/L (35-104); Anion Gap 10 (5-15); BUN 10 mg/dL (4-19); BUN/Creat Ratio 12.1 RATIO (10-20); Calcium,Total 8.3 mg/dL (7.6-11.0); Carbon Dioxide 23.5 mmol/L (21.0-32.0); Chloride 109 mmol/L (98-108); Cholesterol 131 mg/dL (<=200); Globulin 2.0 g/dL (2.2-4.2); Glucose 94 mg/dL (70-99); Low Density Lipoprotein Calc. 43 mg/dL; Potassium 4.1 mmol/L (3.3-5.1); Triglycerides 81 mg/dL; Very Low Density Lipoprotein 16 mg/dL (5-40); Vitamin D,25 Hydroxy 39.5 ng/mL (30-100); cholesterol:hdl ratio screen 1.82
== END | disposition home or self-care (01) ==
LOC: LAB 06:07
PROVIDERS: PCP Family Medicine; Referring Provider Family Medicine; Visit Provider Family Medicine
DX: I10 Essential (primary) hypertension (principal); E78.5 Hyperlipidemia, unspecified; E03.9 Hypothyroidism, unspecified; M81.0 Age-related osteoporosis without current pathological fracture
CPT/HCPCS: 36415; 80053; 80061; 82306; 84439; 84443; 85025

== ENCOUNTER → 2025-02-09 | Outpatient (CLI) | payer MEDICARE, OTHER, SELFPAY ==
--- NOTE | 2025-02-09 10:45 | ECHOD_ITS ---
Reason For Study Reason For Study: Bicuspid Aortic Valve Procedure This was a 2D Doppler, Color Flow transthoracic echocardiogram. Exam performed in department. Left Ventricle Normal size and thickness. The left ventricular ejection fraction is 60 %. Normal diastology for age. Right Ventricle Normal right ventricular systolic function with borderline global longitudinal strain. Atria The left and right atria are normal. Mitral Valve Trivial mitral valve insufficiency. Tricuspid Valve Trivial tricuspid valve insufficiency. Aortic Valve Bicuspid aortic valve with mild aortic valve insufficiency. No aortic valve stenosis. Mean peak gradient 3.6 mmHg. Mild focal aortic valve calcification. Pulmonic Valve The pulmonic valve is not well visualized. Great Vessels Normal sized aortic root. Pericardium/Pleural Epicardial fat. MMode/2D Measurements & Calculations LVIDd: 4.2 cm IVSd: 0.82 cm LVOT diam: 2.0 cm LVIDs: 2.6 cm LVPWd: 0.84 cm LVOT area: 3.0 cm2 RVDd: 3.7 cm FS: 37.5 % LA dimension: 4.1 cm asc Aorta Diam: 3.3 cm LAV(MOD- bp): 30.4 ml LAV(MOD- bp) Indexed: 20.6 ml/m2 LAV(MOD- sp2): 32.3 ml LAV(MOD- sp4): 28.3 ml SV(MOD- sp4): 26.9 ml LVAd ap4: 17.1 cm2 LVAd ap2: 16.1 cm2 LVLd ap4: 5.6 cm LVLd ap2: 6.3 cm SI(MOD- sp4): 18.2 ml/m2 EDV(MOD-sp4): 42.5 ml EDV(MOD-sp2): 34.9 ml EDV(sp4-el): 43.9 ml EDV(sp2-el): 34.7 ml LVAs ap4: 9.6 cm2 LVAs ap2: 9.2 cm2 LVLs ap4: 4.9 cm LVLs ap2: 5.0 cm ESV(MOD-sp4): 15.6 ml ESV(MOD-sp2): 14.5 ml ESV(sp4-el): 15.9 ml ESV(sp2-el): 14.6 ml EF(MOD-sp4): 63.3 % EF(MOD-sp2): 58.4 % EF(sp4-el): 63.7 % SV(MOD-sp2): 20.4 ml SV(sp4-el): 27.9 ml Ao sinus diam: 3.6 cm SI(MOD-sp2): 13.8 ml/m2 Ao ST Junction: 3.0 cm LA dimension(2D): 3.4 cm LA A4 area: 12.5 cm2 TAPSE: 1.7 cm RA A4 area: 9.8 cm2 Time Measurements MV dec time: 0.17 sec Doppler Measurements & Calculations MV E max jt: 65.8 cm/sec Lat Peak E' Jt: 7.9 cm/sec Med Peak E' Jt: 6.2 cm/sec MV A max jt: 72.7 cm/sec E/E' lat: 8.3 E/E' med: 10.6 MV E/A: 0.91 MV dec slope: 379.8 cm/sec2 Ao V2 max: 135.9 cm/sec LV V1 max: 83.5 cm/sec Ao max P.4 mmHg LV V1 max P.8 mmHg Ao V2 mean: 87.8 cm/sec LV V1 mean P.6 mmHg Ao mean P.6 mmHg LV V1 mean: 60.4 cm/sec Ao V2 VTI: 35.8 cm LV V1 VTI: 23.8 cm AV (velocity ratio): 0.66 MARCO(I,D): 2.0 cm2 MARCO(V,D): 1.9 cm2 SV(LVOT): 72.3 ml PA V2 max: 56.1 cm/sec TR max jt: 246.9 cm/sec TR max P.9 mmHg ECHO/Echo Complete Interpretation Summary The left ventricular ejection fraction is 60 %. Normal right ventricular systolic function with borderline global longitudinal strain. Bicuspid aortic valve with mild aortic valve insufficiency. No aortic valve ashtyn nosis. Mean peak gradient 3.6 mmHg. Ordering Physician: Washington Arvizu Referring Physician: Adelina Alvarenga Performed By: Dorota Georges RDCS
== END | disposition home or self-care (01) ==
PROVIDERS: PCP Family Medicine; Referring Provider Nurse Practitioner Family; Visit Provider Nurse Practitioner Family
DX: R26.89 Other abnormalities of gait and mobility (principal); Q23.81 Bicuspid aortic valve
CPT/HCPCS: 93225; 93226; 93306

== ENCOUNTER → 2025-02-25 | Outpatient (CLI) | payer MEDICARE, OTHER, SELFPAY ==
--- NOTE | 2025-02-25 11:06 | MRI_ITS ---
PROCEDURE: BRAIN W/WO CONTRAST 02/25/2025 REASON FOR EXAM: ATAXIA TECHNIQUE: Procedure Code: [id number] Modality: MR Procedure: BRAIN W/WO CONTRAST Multiplanar and multisequence images were obtained. CONTRAST: Clariscan VOLUME: 13 mL COMPARISON: 12-28-2021 CT FINDINGS: No acute or hyperacute infarcts. No intracerebral or extra-axial acute hemorrhage. No obvious enhancing masses. Bilateral cerebral periventricular and subcortical foci and patches of high T2/FLAIR WI signal. Normal MRI signal of the cerebellar hemispheres and brain stem. Prominent ventricular system, cortical sulci and extra-axial CSF spaces. No shift of midline structures. Normal MRI appearance of the petrous temporal bones cerebellopontine angles with no definite masses. Normal MRI appearance of orbital structures, both globes, optic nerves, optic chiasm, optic tracts and optic radiations. Scanned paranasal sinuses are unremarkable. MRI/Brain W/WO Contrast IMPRESSION: No acute infarcts. No intracerebral or extra-axial hematomas. No enhancing mass es. Bilateral cerebral microvascular ischemic changes with mild brain involutional changes. Reading Location: [place] [id number]
== END | disposition home or self-care (01) ==
PROVIDERS: PCP Family Medicine; Referring Provider Otolaryngology; Visit Provider Otolaryngology
DX: R27.0 Ataxia, unspecified (principal)
CPT/HCPCS: 70553; A9575; A4216